=== PATIENT | male | born 1970 | race Caucasian/White ===

== ENCOUNTER 2018-02-26 23:52 | Emergency (ER) | payer MEDICARE ==
[2018-02-27 00:44] LABS: HEMATOCRIT 51.6 % (42.0-52.0); MEAN CORPUSCULAR HEMOGLOBIN 30.2 pg (27.0-33.0); MEAN CORPUSCULAR HGB CONC 34.9 g/dl (32.0-36.5); MEAN CORPUSCULAR VOLUME 86.6 fl (80.0-96.0); PLATELET COUNT, AUTOMATED 280 10^3/uL (150-450); RED BLOOD COUNT 5.96 10^6/uL (4.30-6.10); RED CELL DISTRIBUTION WIDTH 13.2 % (11.5-14.5); WHITE BLOOD COUNT 13.7 10^3/uL (4.0-10.0)
[2018-02-27 01:04] LABS: AMPHETAMINES LEVEL URINE NEGATIVE (NEGATIVE); BARBITURATES URINE NEGATIVE (NEGATIVE); BENZODIAZEPINES URINE NEGATIVE (NEGATIVE); CANNABINOIDS URINE NEGATIVE (NEGATIVE); COCAINE METABOLITE URINE NEGATIVE (NEGATIVE); METHADONE URINE NEGATIVE (NEGATIVE); OPIATES URINE NEGATIVE (NEGATIVE); PHENCYCLIDINE URINE NEGATIVE (NEGATIVE)
[2018-02-27 01:10] LABS: BLOOD UREA NITROGEN 11 MG/DL (7-18); CREATININE FOR GFR 0.88 MG/DL (0.70-1.30); GLOMERULAR FILTRATION RATE > 60.0 (>60); GLUCOSE, FASTING 96 MG/DL (70-100); POTASSIUM SERUM 4.4 MEQ/L (3.5-5.1); SODIUM LEVEL 137 MEQ/L (136-145)
[2018-02-27 01:11] LABS: ACETAMINOPHEN LEVEL < 2.0 UG/ML (10.0-30.0); ALBUMIN 4.4 GM/DL (3.2-5.2); ALBUMIN/GLOBULIN RATIO 1.38 (1.00-1.93); ALKALINE PHOSPHATASE 64 U/L (45-117); ALT/SGPT 106 U/L (12-78); ANION GAP 11 MEQ/L (8-16); AST/SGOT 79 U/L (7-37); BILIRUBIN,DIRECT 0.2 MG/DL (0.0-0.2); BILIRUBIN,TOTAL 0.6 MG/DL (0.2-1.0); CALCIUM LEVEL 9.1 MG/DL (8.5-10.1); CARBON DIOXIDE LEVEL 22 MEQ/L (21-32); CHLORIDE LEVEL 104 MEQ/L (98-107); ETHYL ALCOHOL (ETHANOL) 0.003 % (0.000-0.010); SALICYLATE LEVEL < 1.7 MG/DL (5.0-30.0); THYROID STIMULATING HORMONE 0.906 uIU/ML (0.358-3.740); TOTAL PROTEIN 7.6 GM/DL (6.4-8.2)
[2018-02-27 04:40] LABS: BASO % 0.2 % (0.0-1.0); EOS % 0.1 % (0.0-3.0); IMMATURE GRANULOCYTE % 0.3 % (0-3.0); LYMPH % 22.2 % (24.0-44.0); MONO % 7.6 % (0.0-5.0); NEUTROPHILS # 9.5 10^3/uL (1.8-7.7); NEUTROPHILS % 69.6 % (36.0-66.0)
[2018-02-27] MEDS: ALPRAZolam 0.5 MG TAB PO ×2 (06:37→07:16)
[2018-02-27] MEDS: HALOPERIDOL 5 MG TAB PO (07:08)
== END 2018-02-27 08:26 ==
LOC: M ED 23:52
DX: F23 Brief psychotic disorder (principal); I45.10 Unspecified right bundle-branch block; I44.4 Left anterior fascicular block; Z72.0 Tobacco use; F12.10 Cannabis abuse, uncomplicated; Z79.899 Other long term (current) drug therapy
CPT/HCPCS: 93005

== ENCOUNTER 2018-04-13 15:20 | Inpatient (IN) | payer MEDICARE ==
[2018-04-13 15:59] LABS: HEMOGLOBIN 16.7 g/dl (13.5-17.5); MEAN CORPUSCULAR HEMOGLOBIN 29.8 pg (27.0-33.0); MEAN CORPUSCULAR HGB CONC 34.8 g/dl (32.0-36.5); MEAN CORPUSCULAR VOLUME 85.7 fl (80.0-96.0); PLATELET COUNT, AUTOMATED 238 10^3/uL (150-450); RED CELL DISTRIBUTION WIDTH 12.2 % (11.5-14.5); WHITE BLOOD COUNT 8.9 10^3/uL (4.0-10.0)
[2018-04-13 16:21] LABS: AMPHETAMINES LEVEL URINE NEGATIVE (NEGATIVE); BARBITURATES URINE NEGATIVE (NEGATIVE); BENZODIAZEPINES URINE NEGATIVE (NEGATIVE); CANNABINOIDS URINE NEGATIVE (NEGATIVE); COCAINE METABOLITE URINE NEGATIVE (NEGATIVE); METHADONE URINE NEGATIVE (NEGATIVE); OPIATES URINE NEGATIVE (NEGATIVE); PHENCYCLIDINE URINE NEGATIVE (NEGATIVE)
[2018-04-13 16:30] LABS: ALBUMIN 4.3 GM/DL (3.2-5.2); ALBUMIN/GLOBULIN RATIO 1.54 (1.00-1.93); ALKALINE PHOSPHATASE 75 U/L (45-117); ALT/SGPT 29 U/L (12-78); ANION GAP 5 MEQ/L (8-16); AST/SGOT 16 U/L (7-37); BILIRUBIN,DIRECT 0.2 MG/DL (0.0-0.2); BILIRUBIN,TOTAL 0.6 MG/DL (0.2-1.0); BLOOD UREA NITROGEN 8 MG/DL (7-18); CALCIUM LEVEL 9.2 MG/DL (8.5-10.1); CARBON DIOXIDE LEVEL 29 MEQ/L (21-32); CHLORIDE LEVEL 99 MEQ/L (98-107); CREATININE FOR GFR 0.94 MG/DL (0.70-1.30); ETHYL ALCOHOL (ETHANOL) 0.003 % (0.000-0.010); GLOMERULAR FILTRATION RATE > 60.0 (>60); GLUCOSE, FASTING 110 MG/DL (70-100); POTASSIUM SERUM 4.1 MEQ/L (3.5-5.1); SALICYLATE LEVEL < 1.7 MG/DL (5.0-30.0); SODIUM LEVEL 133 MEQ/L (136-145); TOTAL PROTEIN 7.1 GM/DL (6.4-8.2)
[2018-04-13 16:32] LABS: ACETAMINOPHEN LEVEL < 2.0 UG/ML (10.0-30.0)
[2018-04-13] MEDS: LORazepam 0.5 MG TAB PO (22:30)
[2018-04-14] MEDS: MULTIVITAMINS/MINERALS THERAP 1 TAB PO (09:00)
[2018-04-14] MEDS: risperiDONE 1 MG TAB PO ×2 (09:00→20:05)
[2018-04-14] MEDS: VITAMIN D 1,000 INTERNATIONAL UNITS TABLET PO (09:00)
[2018-04-14] MEDS: LISINOPRIL 40 MG TAB PO (09:00)
[2018-04-14] MEDS ORDERED: MAALOX 30 ML SUSP *UDC PO (13:45)
[2018-04-14] MEDS ORDERED: MOM 30ML SUSPENSION UDC PO (13:45)
[2018-04-14] MEDS: NICOTINE POLACRILEX 2 MG GUM PO ×2 (16:30→20:06)
[2018-04-15] MEDS: traZODone 50 MG TAB PO (00:32)
[2018-04-15] MEDS: NICOTINE POLACRILEX 2 MG GUM PO ×8 (00:33→20:12)
[2018-04-15] MEDS: LISINOPRIL 40 MG TAB PO (08:19)
[2018-04-15] MEDS: MULTIVITAMINS/MINERALS THERAP 1 TAB PO (08:19)
[2018-04-15] MEDS: VITAMIN D 1,000 INTERNATIONAL UNITS TABLET PO (08:19)
[2018-04-15] MEDS: risperiDONE 1 MG TAB PO ×3 (08:19→20:12)
[2018-04-15 08:57] LABS: ANION GAP 8 MEQ/L (8-16); BLOOD UREA NITROGEN 13 MG/DL (7-18); CALCIUM LEVEL 9.2 MG/DL (8.5-10.1); CARBON DIOXIDE LEVEL 25 MEQ/L (21-32); CHLORIDE LEVEL 103 MEQ/L (98-107); CREATININE FOR GFR 0.94 MG/DL (0.70-1.30); GLOMERULAR FILTRATION RATE > 60.0 (>60); GLUCOSE, FASTING 109 MG/DL (70-100); POTASSIUM SERUM 4.4 MEQ/L (3.5-5.1); SODIUM LEVEL 136 MEQ/L (136-145)
[2018-04-15] MEDS: OLANZapine ORAL DISINTEGRATING TAB 5MG PO ×2 (10:26→16:36)
[2018-04-15] MEDS: GABAPENTIN 300 MG CAP PO ×2 (15:02→20:12)
[2018-04-16] MEDS: NICOTINE POLACRILEX 2 MG GUM PO ×6 (04:11→22:06)
[2018-04-16] MEDS: GABAPENTIN 300 MG CAP PO ×3 (08:03→22:05)
[2018-04-16] MEDS: MULTIVITAMINS/MINERALS THERAP 1 TAB PO (08:03)
[2018-04-16] MEDS: LISINOPRIL 40 MG TAB PO (08:03)
[2018-04-16] MEDS: risperiDONE 1 MG TAB PO (08:04)
[2018-04-16] MEDS: VITAMIN D 1,000 INTERNATIONAL UNITS TABLET PO (08:04)
[2018-04-16] MEDS: OLANZapine ORAL DISINTEGRATING TAB 5MG PO ×2 (09:18→12:39)
[2018-04-16] MEDS: risperiDONE 2 MG TAB PO (15:08)
[2018-04-16] MEDS: risperiDONE 3 MG TAB PO (22:05)
[2018-04-17] MEDS: NICOTINE POLACRILEX 2 MG GUM PO ×8 (00:07→20:06)
[2018-04-17] MEDS: traZODone 50 MG TAB PO (00:23)
[2018-04-17] MEDS: QUEtiapine FUMARATE 50 MG TAB PO ×3 (00:23→13:11)
[2018-04-17] MEDS: ACETAMINOPHEN TAB 650MG DOSE (2X325MG) PO ×2 (04:10→12:18)
[2018-04-17] MEDS: VITAMIN D 1,000 INTERNATIONAL UNITS TABLET PO (08:24)
[2018-04-17] MEDS: LISINOPRIL 40 MG TAB PO (08:24)
[2018-04-17] MEDS: MULTIVITAMINS/MINERALS THERAP 1 TAB PO (08:24)
[2018-04-17] MEDS: risperiDONE 3 MG TAB PO ×2 (08:24→20:05)
[2018-04-17] MEDS: GABAPENTIN 300 MG CAP PO ×3 (08:24→20:05)
[2018-04-17] MEDS: risperiDONE 2 MG TAB PO (14:24)
[2018-04-18] MEDS: NICOTINE POLACRILEX 2 MG GUM PO ×6 (02:45→20:05)
[2018-04-18] MEDS: ACETAMINOPHEN TAB 650MG DOSE (2X325MG) PO ×2 (02:45→16:52)
[2018-04-18] MEDS: QUEtiapine FUMARATE 50 MG TAB PO ×2 (03:23→11:17)
[2018-04-18] MEDS: risperiDONE 3 MG TAB PO ×2 (08:01→20:04)
[2018-04-18] MEDS: MULTIVITAMINS/MINERALS THERAP 1 TAB PO (08:01)
[2018-04-18] MEDS: GABAPENTIN 300 MG CAP PO ×3 (08:01→20:04)
[2018-04-18] MEDS: LISINOPRIL 40 MG TAB PO (08:01)
[2018-04-18] MEDS: VITAMIN D 1,000 INTERNATIONAL UNITS TABLET PO (08:01)
[2018-04-18] MEDS: risperiDONE 2 MG TAB PO (14:23)
[2018-04-19] MEDS: NICOTINE POLACRILEX 2 MG GUM PO ×5 (02:25→17:00)
[2018-04-19] MEDS: ACETAMINOPHEN TAB 650MG DOSE (2X325MG) PO ×2 (04:36→11:56)
[2018-04-19] MEDS: LISINOPRIL 40 MG TAB PO (08:07)
[2018-04-19] MEDS: risperiDONE 3 MG TAB PO ×2 (08:07→20:52)
[2018-04-19] MEDS: VITAMIN D 1,000 INTERNATIONAL UNITS TABLET PO (08:07)
[2018-04-19] MEDS: MULTIVITAMINS/MINERALS THERAP 1 TAB PO (08:07)
[2018-04-19] MEDS: GABAPENTIN 300 MG CAP PO ×3 (08:07→20:52)
[2018-04-19] MEDS: QUEtiapine FUMARATE 50 MG TAB PO (10:04)
[2018-04-19] MEDS: risperiDONE 2 MG TAB PO (15:24)
[2018-04-20] MEDS: NICOTINE POLACRILEX 2 MG GUM PO ×8 (02:04→18:49)
[2018-04-20] MEDS: ACETAMINOPHEN TAB 650MG DOSE (2X325MG) PO ×2 (02:05→08:27)
[2018-04-20 07:18] LABS: ALBUMIN 4.2 GM/DL (3.2-5.2); ALBUMIN/GLOBULIN RATIO 1.56 (1.00-1.93); ALKALINE PHOSPHATASE 77 U/L (45-117); ALT/SGPT 30 U/L (12-78); AST/SGOT 15 U/L (7-37); BILIRUBIN,DIRECT 0.1 MG/DL (0.0-0.2); BILIRUBIN,TOTAL 0.5 MG/DL (0.2-1.0); CHOLESTEROL LEVEL 146 MG/DL (<200); CHOLESTEROL RISK RATIO 3.318 (<5); HDL CHOLESTEROL 44 MG/DL (>40); LDL CHOLESTEROL 79 MG/DL (<100); NON-HDL-C 102 MG/DL; TOTAL PROTEIN 6.9 GM/DL (6.4-8.2); TRIGLYCERIDES LEVEL 115 MG/DL (<150)
[2018-04-20] MEDS: MULTIVITAMINS/MINERALS THERAP 1 TAB PO (08:04)
[2018-04-20] MEDS: VITAMIN D 1,000 INTERNATIONAL UNITS TABLET PO (08:04)
[2018-04-20] MEDS: GABAPENTIN 300 MG CAP PO ×3 (08:04→20:28)
[2018-04-20] MEDS: LISINOPRIL 40 MG TAB PO (08:04)
[2018-04-20] MEDS: risperiDONE 2 MG TAB PO (14:01)
[2018-04-20] MEDS: risperiDONE 3 MG TAB PO (20:28)
[2018-04-20] MEDS: traZODone 50 MG TAB PO (20:28)
[2018-04-21] MEDS: NICOTINE POLACRILEX 2 MG GUM PO ×6 (04:08→16:56)
[2018-04-21] MEDS: VITAMIN D 1,000 INTERNATIONAL UNITS TABLET PO (08:20)
[2018-04-21] MEDS: MULTIVITAMINS/MINERALS THERAP 1 TAB PO (08:20)
[2018-04-21] MEDS: GABAPENTIN 300 MG CAP PO ×3 (08:20→22:30)
[2018-04-21] MEDS: LISINOPRIL 40 MG TAB PO (08:20)
[2018-04-21] MEDS: ACETAMINOPHEN TAB 650MG DOSE (2X325MG) PO (10:26)
[2018-04-21] MEDS: risperiDONE 2 MG TAB PO (14:44)
[2018-04-21] MEDS: risperiDONE 3 MG TAB PO (22:29)
[2018-04-21] MEDS: QUEtiapine FUMARATE 50 MG TAB PO (22:31)
[2018-04-22] MEDS: ACETAMINOPHEN TAB 650MG DOSE (2X325MG) PO (05:17)
[2018-04-22] MEDS: NICOTINE POLACRILEX 2 MG GUM PO ×6 (05:18→19:37)
[2018-04-22] MEDS: GABAPENTIN 300 MG CAP PO ×3 (08:19→20:46)
[2018-04-22] MEDS: MULTIVITAMINS/MINERALS THERAP 1 TAB PO (08:19)
[2018-04-22] MEDS: VITAMIN D 1,000 INTERNATIONAL UNITS TABLET PO (08:19)
[2018-04-22] MEDS: LISINOPRIL 40 MG TAB PO (08:20)
[2018-04-22] MEDS: IBUPROFEN 600 MG TAB PO (10:45)
[2018-04-22] MEDS: QUEtiapine FUMARATE 50 MG TAB PO (13:30)
[2018-04-22] MEDS: risperiDONE 2 MG TAB PO (15:36)
[2018-04-22] MEDS: CYCLOBENZAPRINE 5MG TABLET PO (18:16)
[2018-04-22] MEDS: risperiDONE 3 MG TAB PO (20:46)
[2018-04-23] MEDS: NICOTINE POLACRILEX 2 MG GUM PO ×7 (05:28→21:25)
[2018-04-23] MEDS: IBUPROFEN 600 MG TAB PO ×2 (05:31→11:45)
[2018-04-23] MEDS: SODIUM CHLORIDE NASAL 0.65% SPRAY BTL (OCEAN) (08:44)
[2018-04-23] MEDS: MULTIVITAMINS/MINERALS THERAP 1 TAB PO (08:45)
[2018-04-23] MEDS: LISINOPRIL 40 MG TAB PO (08:45)
[2018-04-23] MEDS: VITAMIN D 1,000 INTERNATIONAL UNITS TABLET PO (08:45)
[2018-04-23] MEDS: GABAPENTIN 300 MG CAP PO ×3 (08:45→20:00)
[2018-04-23] MEDS: CYCLOBENZAPRINE 5MG TABLET PO ×3 (08:45→21:25)
[2018-04-23] MEDS: OLANZapine ORAL DISINTEGRATING TAB 5MG PO (11:45)
[2018-04-23] MEDS: risperiDONE 2 MG TAB PO (14:06)
[2018-04-23] MEDS: risperiDONE 3 MG TAB PO (20:00)
[2018-04-24] MEDS: NICOTINE POLACRILEX 2 MG GUM PO ×8 (04:12→21:07)
[2018-04-24] MEDS: SODIUM CHLORIDE NASAL 0.65% SPRAY BTL (OCEAN) ×2 (06:30→11:38)
[2018-04-24] MEDS: MULTIVITAMINS/MINERALS THERAP 1 TAB PO (08:18)
[2018-04-24] MEDS: GABAPENTIN 300 MG CAP PO ×3 (08:18→20:10)
[2018-04-24] MEDS: LISINOPRIL 40 MG TAB PO (08:18)
[2018-04-24] MEDS: VITAMIN D 1,000 INTERNATIONAL UNITS TABLET PO (08:18)
[2018-04-24] MEDS: risperiDONE 2 MG TAB PO (14:03)
[2018-04-24] MEDS: CYCLOBENZAPRINE 5MG TABLET PO (20:09)
[2018-04-24] MEDS: risperiDONE 3 MG TAB PO (20:10)
[2018-04-24] MEDS: traZODone 50 MG TAB PO (21:07)
[2018-04-25] MEDS: NICOTINE POLACRILEX 2 MG GUM PO ×5 (05:07→18:12)
[2018-04-25] MEDS: CYCLOBENZAPRINE 5MG TABLET PO ×3 (05:07→20:32)
[2018-04-25] MEDS: LISINOPRIL 40 MG TAB PO (09:24)
[2018-04-25] MEDS: GABAPENTIN 300 MG CAP PO ×3 (09:25→20:33)
[2018-04-25] MEDS: MULTIVITAMINS/MINERALS THERAP 1 TAB PO (09:25)
[2018-04-25] MEDS: VITAMIN D 1,000 INTERNATIONAL UNITS TABLET PO (09:25)
[2018-04-25] MEDS: risperiDONE 2 MG TAB PO (15:29)
[2018-04-25] MEDS: IBUPROFEN 600 MG TAB PO (18:12)
[2018-04-25] MEDS: traZODone 50 MG TAB PO (20:32)
[2018-04-25] MEDS: risperiDONE 3 MG TAB PO (20:32)
[2018-04-26] MEDS: NICOTINE POLACRILEX 2 MG GUM PO ×2 (04:08→08:43)
[2018-04-26] MEDS: SODIUM CHLORIDE NASAL 0.65% SPRAY BTL (OCEAN) (04:08)
[2018-04-26] MEDS: CYCLOBENZAPRINE 5MG TABLET PO (05:14)
[2018-04-26] MEDS: GABAPENTIN 300 MG CAP PO (08:43)
[2018-04-26] MEDS: VITAMIN D 1,000 INTERNATIONAL UNITS TABLET PO (08:43)
[2018-04-26] MEDS: MULTIVITAMINS/MINERALS THERAP 1 TAB PO (08:43)
[2018-04-26] MEDS: LISINOPRIL 40 MG TAB PO (08:44)
[2018-04-26] MEDS ORDERED: diphenhydrAMINE 25 MG CAP PO (10:15)
== END 2018-04-26 11:00 | disposition home or self-care (01) | DRG 885 ==
LOC: M ED INP 04-14 13:42 → M ED 15:20 → M PSY 04-14 14:35
DX: F25.0 Schizoaffective disorder, bipolar type (principal); E87.1 Hypo-osmolality and hyponatremia; I10 Essential (primary) hypertension; I45.6 Pre-excitation syndrome; Z79.899 Other long term (current) drug therapy; Z88.8 Allergy status to other drugs, medicaments and biological substances

== ENCOUNTER 2020-06-28 11:06 | Emergency (ER) | payer MEDICARE ==
[~2020-06-28] VITALS: Ht 177.8 cm; Wt 116.4 kg
[~2020-06-28 11:06] MED LIST: BENZ0.5T PO; BENZ5TA PO; CELE20TA PO; CLON0.5T PO; CLON1TAB PO; CYCL5TAB PO; DEPA1TAB3 PO; DEPA500T2 PO; DIVA500T9 PO; GABA-282 PO; HALO1TAB21 PO; HALO1TAB29 PO; LISI40TA PO; MENSTAB10 PO; METO50TA2 PO; OCEA0.654; OMEPPOW18 PO; RISP-8 PO; RISP0.2516 PO; RISP2TAB32 PO; RISP3TAB20 PO; SERT-138 PO; SIMV20TA2 PO; TEST1VL IM; TRAZ100T2 PO; TRAZ1TAB10 PO; VITA500046 PO; VITMTA PO; ZALE10CA PO; [UNRECOGNIZED DRUG - CODE] PO; [UNRECOGNIZED DRUG - OTHER] PO
--- OUTSIDE RECORDS SUMMARY | 2020-06-28 11:15 | CCD | Continuity of Care Document ---
Author Author Júnior CORNELIUS [facility] Organization Unknown Address [facility] [address] [place] [address] Phone [phone] Care Team Providers Care Business Division Chair Name Role Phone [facility] AUTM [phone] Problems Active Problems Provider Date Essential hypertension Kalyan Richardson MD Onset: 02/06/2020 Schizoaffective disorder, depressive type CHAPITO Moscoso Onset: 04/18/2020 Ventral hernia without obstruction or gangrene Kalyan Richardson MD Onset: 02/06/2020 Social History Type Date Description Comments Sex Unknown Tobacco Use Start: Unknown Never Smoked Cigarettes Tobacco Use Start: Unknown Never Smoked Cigars Tobacco Use Start: Unknown Never Smoked A Pipe Tobacco Use Start: Unknown Current Smokeless Tobacco User, Uses Occasionally ETOH Use Denies alcohol use Tobacco Use Start: Unknown Patient has never smoked Recreational Drug Use Denies Drug Use Allergies, Adverse Reactions, Alerts Active Allergies Reaction Severity Comments Date Dust Mites 05/06/2020 Ragweed 05/06/2020 NKFA 05/06/2020 Haldol Locked My Jaw 05/06/2020 Inactive Allergies NKDA 02/06/2020 Medications Active Medications SIG Qnty Indications Ordering Provide r Date Depakote 500mg Tablets DR 1 tab by mouth three times a day 90tabs Unknown Lisinopril 40mg Tablets 1 by mouth every day Unknown Meloxicam 7.5mg Tablets 1 by mouth bid Unknown Prazosin HCL 1mg Capsules 1 cap by mouth twice a day 180caps Unknown Clonazepam 0.5mg Tablets Dispers 1 tab by mouth twice a day 60tabs Unknown Sertraline HCL 100mg Tablets 1 by mouth every day 90tabs Unknown Olanzapine 10mg Tablets 1 tab by mouth every day 90tabs Unknown Immunizations Description No Information Available Vital Signs Date Vital Result Comment 05/06/2020 10:41am BP Systolic Sitting 140 mmHg BP Diastolic Sitting 86 mmHg Heart Rate 62 /min Body Temperature 99.3 F Oral Respiratory Rate 18 /min O2 % BldC Oximetry 98 % Weight 252.25 lb Weight 114.421 kg Height 70 inches 5'10" BMI (Body Mass Index) 36.2 kg/m2 BSA (Body Surface Area) 2.30 m2 02/06/2020 11:35am BP Systolic 141 mmHg BP Diastolic 92 mmHg Heart Rate 70 /min Body Temperature 97.3 F Respiratory Rate 17 /min Weight 250.00 lb Weight 113.400 kg Height 71 inches BMI (Body Mass Index) 34.9 kg/m2 BSA (Body Surface Area) 2.32 m2 Results Test Acquired Date Facility Test Result H/L Range Note [facility] 13 05/06/2020 Radha brown Summary Report (Summary) FINAL 1, 2 PDF . 1 {DIAGNOSIS: F25.1~{MEDICATI ONS/DECLARED: CLONAZEPAM DEPAKOTE MELOXICAM PRAZOSIN~{PRESCRIPTION I 2 [facility] SELECT 13 (MW) Test Result Flag Units Drug Present and Declared for Prescription Verification 7-aminoclonazepam 36 EXPECTED ng/mg creat 7-aminoclonazepam is an expected metabol ite of clonazepam. Source of clonazepam is a scheduled prescription medication. Test Result Flag Units Ref Range Creatinine 80 mg/dL >=20 Declared Medications: The flagging and interpretation on this report are based on the following declared medications. Unexpected results may arise from inaccuracies in the declared medications. Note: The testing scope of this panel includes these medications: Clonazepam Note: The testing scope of this panel does not include following reported medications: Divalproex (Depakote) Meloxicam Prazosin Sertraline For clinical consultation, please call . Procedures Date Code Description Status 04/18/2020 64409 Psychiatric Diagnostic Evaluatio n Completed Medical Devices Description No Information Available Encounters Description No Information Available Assessments Date Code Description Provider 05/28/2020 F25.1 Schizoaffective disorder, depres sive type Kaylie Ashli, [facility] 05/20/2020 F25.1 Schizoaffective disorder, depres sive type Kaylie Ashli, [facility] 05/08/2020 F25.1 Schizoaffective disorder, depres sive type Kaylie Ashli, [facility] 05/06/2020 F25.1 Schizoaffective disorder, depres sive type Eliane Chavira RN 05/03/2020 F25.1 Schizoaffective disorder, depres sive type Kaylie Ashli, [facility] 04/18/2020 F25.1 Schizoaffective disorder, depres sive type Papa Doshi, [facility] 02/06/2020 K43.9 Ventral hernia without obstructi on or gangrene Kalyan Richardson MD Plan of Treatment Future Appointment(s):* 06/27/2020 10:00 am - Kaylie Cornelius, [facility] at [facility] * 06/13/2020 8:00 am - Kaylie Cornelius [facility] at [facility] * 06/14/2020 11:20 am - Fer Rosario PA-C at [facility] 02/06/2020 - Kalyan Richardson MD* K43.9 Ventral hernia without obstruction or gangrene* New Labs:* Covid-19, Ordered: 02/06/20 * CBC W/Automated Diff, Ordered: 02/06/20 * Electrolyte Panel, Ordered: 02/06/20 * Comments:* Considering the patient's amount of pain, his nausea and inability to eat and drink, I will recommend HERRERA operative evaluation and repair. I suspect that his pain is from swelling 2nd to the prior manipulation and not from bowel involvement. However, this will be better evaluated during the operative procedure. Risks and benefits of the operative procedure including infection, bleeding and possible need to open the abdomen were discussed with the patient to his stated understanding. Functional Status Description No Information Available Mental Status Description No Information Available Referrals Description No Information Available
--- OUTSIDE RECORDS SUMMARY | 2020-06-28 11:15 | CCD | Continuity of Care Document ---
Author Author [facility] Address [address] [place] [address] Phone Support Name Relationship Address Phone Kelli Mcmanus [employer]S [address] [place] [address] Ina Geronimo [employer]S Unknown Unavailable Naveed Hannon [employer]S [address] [place] [address] Skip Rutherford [employer]S [address] [place] [address] Hospital Lab, [facility] [address] [place] [address] Allergies, Adverse Reactions, Alerts Allergen Type Severity Reaction Last Updated Verified Status dust mites Allergy Severe builds up drainage in eyes , post nasal drip February 05, 2020 8:23pm No Active rag weed Allergy Severe builds up eye drainage, post nasal drip February 05, 2020 8:23pm No Active Medications Medication Status Dose Units Route Directions Qty Days Start Date End Date Instructions Divalproex Discontinued PO 60 December 06, 2018 8:01am November 13, 2019 2:46pm Citalopram Discontinued PO December 06, 2018 8:03am January 11, 2019 7:38am Meloxicam Discontinued 7 .5 MG PO 2 Times Per Day 180 90 December 06, 2018 8:10am November 29, 2019 7:17am Testosterone Cypionate Discontinued 300 MG IM every 2 weeks 1.5 14 December 06, 2018 8: 13am January 05, 2019 1:42pm Inject 1.5ml into muscle Q2 weeks. Syringe (Disposable) (Bd Luer-Yanira Tip Co ntrol Syring) 10 mL syringe Discontinued 1 EACH MC every 2 weeks 1 December 06, 2018 8:14am January 05 1:42pm With 1 inch 23g needle. Divalproex Discontinued 250 MG PO 2 Times Per Day 60 November 13, 2019 2:46pm January 25, 2020 8:51am On Hold: None Citalopram Discontinued 30 MG PO daily 60 January 11, 2019 7:36am November 13, 2019 2:46pm Montelukast Discontinued 10 MG PO Every Evening 90 January 11, 2019 7:44am July 12, 2019 9:55am Alprazolam Discontinued 0.5 MG PO 2 Times Per Day 60 February 16, 2019 7:46am February 16, 2019 9:08am take 1 t ablet by mouth two times a day MDD-2 Syringe (Disposable) (Bd Luer-Yanira Tip Co ntrol Syring) 10 mL syringe Discontinued 1 EACH MC every 2 weeks 1 February 16, 2019 7:59am April 28, 2019 7:30am With 1 inch 23g needle. Testosterone Cypionate Discontinued 300 MG IM every 2 weeks 1.5 February 16, 2 019 7:59am March 16, 2019 2:21pm Inject 1.5 ml into muscle Q2 weeks. FOREST EXAMINER: [id number] Ofloxacin Discontinued 1 DROPS BOTH EYES Four Times a Day 10 February 16 9 8:01am February 20, 2019 11:01pm Alprazolam Discontinued 0.5 MG PO daily February 16, 2019 9:08am November 29, 2019 7:35am take 1 tablet once a day. Montelukast Discontinued 10 MG PO Every Evening 90 July 12, 2019 10:14am February 05, 2020 8:17pm Loratadine (Allergy Relief (Loratadine)) 10 mg tablet Discontinued 10 MG PO Q24H 90 July 12, 2019 10:15am July 12, 2019 10:16am Loratadine (Allergy Relief (Loratadine)) 10 mg tablet Discontinued 10 MG PO Q24H 90 July 12, 2019 10:16am February 05, 2020 8:17pm Trazodone Discontinued 50 MG PO daily October 19, 2019 9:02am February 05, 2020 8:17pm Syringe (Disposable) (Bd Luer-Yanira Tip Co ntrol Syring) 10 mL syringe Discontinued 1 EACH MC every 2 weeks 1 October 19, 2019 10:10am November 28 0 7:35am With 1 inch 23g needle. Citalopram Discontinued 40 MG PO daily November 13, 2019 2:45pm November 13, 2019 2:48pm Citalopram Discontinued 40 MG PO daily November 13, 2019 2:47pm January 22, 2020 7:50am Fluticasone Propionate (Flonase Allergy Relief) 50 mcg/actuation spray,suspension Discontinued 2 SPRAY DONOVAN daily December 20, 2019 9:26am February 05, 2020 8:22pm administer into each nostril Afluria Qd (3yr up)(PF) (flu vac [id number] 36mos up(PF)) Discontinued 60 MCG IM 1 Time/Once 0.5 March 13, 2020 8:54am March 132019 9:51am Sertraline Discontinued MG PO March 13, 2020 9:05am March 13, 2020 10:29am Olanzapine Discontinued MG PO March 13, 2020 9:06am March 13, 2020 10:29am Prazosin Discontinued MG PO March 13, 2020 9:06am March 132019 10:29am Divalproex Discontinued 500 MG PO 2 Times Per Day March 13, 2020 9:06am March 13, 2020 10:29am Taken over from . Takes 500mg in am and 1000mg at hs Divalproex Active 500 MG PO Three times a day 270 90 March 13, 2020 9:49am Taken over from . Takes 500mg in am and 1000mg at hs Olanzapine Discontinued 20 MG PO Every Evening 60 March 13, 2020 9:49am May 07, 2020 11:17am Prazosin Discontinued 1 MG PO daily March 13, 2020 9:50am March 18, 2020 2:25pm Sertraline Discontinued 50 MG PO Q24H March 13, 2020 9:50am April 04, 2020 10:24am Sertraline Discontinued 100 MG PO Q24H April 04, 2020 10:24am May 07, 2020 11:21am Testosterone Cypionate Discontinued 200 MG IM every 2 weeks 06 13April 04, 2020 10:27am April 11, 2020 9:46am Inject 1m l into muscle Q2 week FOREST EXAMINER:[id number] Olanzapine Discontinued 10 MG PO Every Evening May 07, 2020 11:17am June 04, 2020 1:21pm Sertraline Active 50 MG PO Q24H May 07, 2020 11:19am Take with 100mg tablet. Sertraline Active 100 MG PO Q24H May 07, 2020 11:19am Take with 50mg tablet. Testosterone Cypionate Discontinued 200 MG IM every 2 weeks 1 May 07, 2020 1:04pm June 04, 2020 2:26pm Inject 1ml into muscle Q2 week FOREST EXAMINER:[id number] Olanzapine Active 20 MG PO Every Evening 60 June 04, 2020 1:20pm Clonazepam Active 0.5 MG PO 2 Times Per Day June 04, 2020 2:26pm Testosterone Cypionate Active 200 MG IM every 2 weeks 1 June 04, 2020 2 :26pm Inject 1ml into muscle Q2 we ek FOREST EXAMINER:[id number] Amoxicillin-Pot Clavulanate Active 1 TAB PO 2 Times Per Day 19 03June 21, 2020 9:36am Diltiazem Hcl Discontinued 240 MG PO Once Per Day January 01, 2014 9:47am July 08, 2018 8:39am Gabapentin Discontinued 400 MG PO Four Times a Day January 01, 2014 9:47am November 13, 2019 2:46pm Bupropion Hcl (Smoking Deter) Discontinued 150 MG PO 2 Times Per Day January 01, 2014 9:4 7am July 08, 2018 8:39am Testosterone Cypionate (Depo-Testosterone) 200 mg/mL o il Discontinued 200 MG IM every 2 weeks 1 March 14, 2012 3:36pm July 12:13pm Haloperidol Discontinued 5 MG PO Three times a day 90 March 14, 2012 3:37pm December 20, 2012 8:55am Divalproex Sodium (Depakote) Discontinued 500 MG PO 2 Times Per Day 60 March 14, 2012 3:37pm January 01, 2014 9:55am Benztropine Discontinued 1 MG PO 2 Times Per Day 60 March 14, 2012 3:38pm December 20, 2012 8:55am Sertraline Discontinued 100 MG PO Once Per Day 30 March 14, 2012 3:39pm December 20, 2012 8:55am METOPROLOL TARTRATE (LOPRESSOR (Metoprolol Tartrate)) Discontinued 25 MG PO 2 Times Per Day 60 March 14, 2012 3:57pm March 282011 10:04am Metoprolol Tartrate Discontinued 50 MG PO 2 Times Per Day 60 March 28, 2012 10:04am June 24, 2012 2:12pm Simvastatin Discontinued 20 MG PO Once Per Day 30 March 28, 2012 10:05am June 24, 2012 2:12pm Simvastatin Discontinued 20 MG PO Once Per Day 30 June 24, 2012 2:12pm September 26, 2012 9:15am Metoprolol Tartrate Discontinued 50 MG PO 2 Times Per Day 60 June 24, 2012 2:12pm September 26, 2012 10:31am Sildenafil (Viagra) 50 mg tablet Dis continued 50 MG PO D AILY PRN 6 June 24, 2012 2 :13pm December 20, 2012 9:04am Testosterone Cypionate (Depo-Testosterone) 200 mg/mL o il Discontinued 200 MG IM every 2 weeks 1 August 12, 2012 12:13pm December 12, 2012 10:08am Simvastatin Discontinued 20 MG PO Once Per Day 30 September 26, 2012 9:15am December 20, 2012 8:58am Metoprolol Tartrate Discontinued 50 MG PO 2 Times Per Day 60 September 26, 2012 10 :31am January 06, 2013 9:55am Testosterone Cypionate (Depo-Testosterone) 200 mg/mL o il Discontinued 200 MG IM every 2 weeks December 12, 2012 10:08am July 8:39am Clonazepam Discontinued 0.5 MG PO 2 Times Per Day 60 December 20, 2012 8:56am January 01, 2014 9:55am Zolpidem (Ambien) 10 mg tablet Discontinue d 10 MG PO Once Per Day 30 December 20, 2012 8:5 6am January 01, 2014 9:54am Perphenazine Discontinued 8 MG PO Every night at bed time December 20, 2012 8:5 6am July 08, 2018 8:39am Simvastatin Discontinued 20 MG PO Once Per Day 30 December 20, 2012 8:58am January 01, 2014 9:53am Sildenafil (Viagra) 100 mg tablet Di scontinued 100 MG PO DAILY PRN 6 December 20, 2012 9:04 am February 05, 2020 8:17pm Metoprolol Tartrate Discontinued 50 MG PO 2 Times Per Day 60 January 06, 2013 9: 55am January 01, 2014 9:54am Diclofenac Potassium Discontinued 50 MG PO BID PRN 30 January 06, 2013 11:51am January 01, 2014 9:55am Ziprasidone Hcl Discontinued July 08, 2018 8:39am December 06, 2018 8:04am Lisinopril Discontinued July 08, 2018 8:39am July 082018 8:51am Trazodone Hcl Discontinued July 08, 2018 8:40am July 12, 2019 9:56am Meloxicam Discontinued 7 .5 MG PO 2 Times Per Day 60 30 July 08, 2018 8:51am September 28, 2018 9:30am Meloxicam Discontinued 7 .5 MG PO 2 Times Per Day 60 July 08, 2018 8:51am December 06, 2018 8:11am Lisinopril Discontinued 40 MG PO Once Per Day 90 July 08, 2018 8:51am September 28, 2018 9:30am Lisinopril Discontinued 40 MG PO Once Per Day 90 90 July 08, 2018 8:51am January 27, 2019 1:55pm Meloxicam Discontinued 7 .5 MG PO 2 Times Per Day 60 July 08, 2018 4:25pm September 28, 2018 9:31am Meloxicam Discontinued 7 .5 MG PO 2 Times Per Day 60 July 08, 2018 4:25pm December 06, 2018 8:10am Alprazolam Discontinued 0.5 MG PO Three times a day 90 September 06, 2018 8:28am February 16, 2019 7:47am take 1 t ablet by mouth three times a day Bupropion Hcl Discontinued 300 MG PO Once Per Day September 06, 2018 8:28am July 12, 2019 9:56am take one tablet by mouth in am Syringe (Disposable) (Syringe) 10 ML syringe Discontinued 1 EACH MC every 2 weeks 06 29September 06, 2018 8:59am September 28, 2018 10:40am With 1 inch 23g needle. Syringe (Disposable) (Syringe) 10 ML syringe Discontinued 1 EACH MC every 2 weeks 06 29September 06, 2018 8:59am October 28, 2018 9:51am With 1 inch 23g needle. Testosterone Cypionate Discontinued 200 MG IM every 2 weeks 06 29September 06, 2018 8:5 9am September 13, 2018 11:00am Inject 1ml into muscle every 2 weeks. Testosterone Cypionate Discontinued 200 MG IM every 2 weeks 06 13September 13, 2018 11 :00am September 28, 2018 10:47am Inject 1ml int o muscle every 2 weeks. Testosterone Cypionate Discontinued 200 MG IM every 2 weeks 06 13September 13, 2018 11 :00am September 30, 2018 11:50am Inject 1ml int o muscle every 2 weeks. Testosterone Cypionate Discontinued 200 MG IM every 2 weeks 06 13September 30, 2018 11:50 am October 03, 2018 5:57am Inject 1ml into muscle every 2 weeks. Testosterone Cypionate Discontinued 200 MG IM every 2 weeks 06 13October 03, 2018 5:57a m October 28, 2018 9:51am Inject 1ml int o muscle every 2 weeks. Testosterone Cypionate Discontinued 200 MG IM every 2 weeks 06 13October 28, 2018 9:51 am November 10, 2018 11:41am Inject 1ml i nto muscle every 2 weeks. FOREST EXAMINER: [id number] Syringe (Disposable) (Bd Luer-Yanira Tip Co ntrol Syring) 10 mL syringe Discontinued 1 EACH MC every 2 weeks 06 29October 28, 2018 9:51am December 06, 2018 8:15am With 1 inch 23g needle. Testosterone Cypionate Discontinued 200 MG IM every 2 weeks 06 13November 10, 2018 11: 41am November 24, 2018 5:32pm Inject 1ml in to muscle every 2 week Testosterone Cypionate Discontinued 200 MG IM every 2 weeks 06 13November 24, 2018 5:3 1pm December 06, 2018 8:14am Inject 1ml int o muscle every 2 week Testosterone Cypionate Discontinued 300 MG IM every 2 weeks 1.5 January 05, 2019 1:42pm February 16, 2019 8:01am Inject 1 .5ml into muscle Q2 weeks. FOREST EXAMINER:[id number] Syringe (Disposable) (Bd Luer-Yanira Tip Co ntrol Syring) 10 mL syringe Discontinued 1 EACH MC every 2 weeks 06 29January 05, 2019 1:42pm February 162018 8:01am With 1 inch 23g needle. Lisinopril Discontinued 40 MG PO Once Per Day 90 90 January 27, 2019 1:55pm January 22, 2020 7:50am Testosterone Cypionate Discontinued 300 MG IM every 2 weeks 1.5 March 16 9 2:21pm April 28, 2019 7:30am Inject 1. 5ml into muscle Q2 weeks. FOREST EXAMINER:[id number] Syringe (Disposable) (Bd Luer-Yanira Tip Co ntrol Syring) 10 mL syringe Discontinued 1 EACH MC every 2 weeks 06 29April 28, 2019 7:29am June 012019 8:37am With 1 inch 23g needle. Testosterone Cypionate Discontinued 300 MG IM every 2 weeks 1.5 April 28 7:29am June 27, 2019 8:37am Inject 1.5 ml into muscle Q2 weeks. FOREST EXAMINER: [id number] Syringe (Disposable) (Bd Luer-Yanira Tip Co ntrol Syring) 10 mL syringe Discontinued 1 EACH MC every 2 weeks 06 29June 27, 2019 8:37am October 19, 2019 10:10am With 1 inch 23g needle. Testosterone Cypionate Discontinued 300 MG IM every 2 weeks 1.5 June 27 0 8:37am August 21, 2019 8:55am Inject 1.5ml into muscle Q2 weeks. FOREST EXAMINER: [id number] Testosterone Cypionate Discontinued 300 MG IM every 2 weeks 1.5 August 21, 2019 8:55am October 19, 2019 11:25am Inject 1.5ml into muscle Q2 weeks. FOREST EXAMINER: [id number] Testosterone Cypionate Discontinued 300 MG IM every 2 weeks 1.5 October 19, 2019 11 :24am November 29, 2019 7:35am Inject 1.5ml i nto muscle Q2 weeks. FOREST EXAMINER: [id number] Meloxicam Discontinued 7 .5 MG PO 2 Times Per Day 180 November 29, 2019 7:16am November 29, 2019 7:47am Syringe (Disposable) (Bd Luer-Yanira Tip Co ntrol Syring) 10 mL syringe Discontinued 1 EACH MC every 2 weeks 06 29November 29, 2019 7:34am November 29, 2019 7:47am With 1 inch 23g needle. Alprazolam Discontinued 0.5 MG PO daily November 29, 2019 7:34am November 29, 2019 7:45am take 1 tablet once a day. Testosterone Cypionate Discontinued 300 MG IM every 2 weeks 1.5 November 29, 2019 7: 34am November 29, 2019 7:45am Inject 1.5ml i nto muscle Q2 weeks. FOREST EXAMINER: [id number] Testosterone Cypionate Discontinued 300 MG IM every 2 weeks 1.5 November 29, 2019 7: 45am January 24, 2020 6:27am Inject 1.5m l into muscle Q2 week Alprazolam Discontinued 0.5 MG PO daily November 29, 2019 7:45am December 29, 2019 6:41am take 1 tablet once a day. Meloxicam Active 7.5 MG PO 2 Times Per Day 180 November 29, 2019 7:46am Syringe (Disposable) (Bd Luer-Yanira Tip Co ntrol Syring) 10 mL syringe Discontinued 1 EACH MC every 2 weeks 1 November 29, 2019 7:46am January 23, 6:27am With 1 inch 23g needle. Alprazolam Discontinued 0.5 MG PO daily December 29, 2019 6:41am January 23, 2020 3:11pm take 1 tablet once a day. Citalopram Discontinued 40 MG PO daily January 22, 2020 7:50am February 06, 2020 9:06am Lisinopril Active 40 MG PO Once Per Day 90 January 22, 2020 7:50am Alprazolam Discontinued 0.5 MG PO daily January 23, 2020 3:11pm February 21, 2020 7:22am take 1 tablet once a day. Syringe (Disposable) (Bd Luer-Yanira Tip Co ntrol Syring) 10 mL syringe Discontinued 1 EACH MC every 2 weeks 06 29January 24, 2020 6:27am February 052019 9:06am With 1 inch 23g needle. Testosterone Cypionate Discontinued 300 MG IM every 2 weeks 1.5 January 24, 2020 6:27am February 05, 2020 8:17pm Inject 1. 5ml into muscle Q2 week Divalproex Discontinued 500 MG PO At Bedtime January 25, 2020 8:48am January 25, 2020 8:51am Divalproex Discontinued 500 MG PO At Bedtime January 25, 2020 8:51am March 13, 2020 9:07am Taken over from Testosterone Cypionate Discontinued 300 MG IM every 2 weeks 1.5 14 February 05 9:04am February 27, 2020 3:08pm Inject 1 .5ml into muscle Q2 week Citalopram Discontinued 40 MG PO daily February 06, 2020 9:05am March 13, 2020 9:05am Syringe (Disposable) (Bd Luer-Yanira Tip Co ntrol Syring) 10 mL syringe Discontinued 1 EACH MC every 2 weeks 06 29February 06, 2020 9:06am April 11, 2020 9:46am With 1 inch 23g needle. Alprazolam Discontinued 0.5 MG PO daily February 21, 2020 7:22am March 18, 2020 2:25pm take 1 tablet once a day. Testosterone Cypionate Discontinued 300 MG IM every 2 weeks 1.5 14 February 26, 2 020 3:07pm April 04, 2020 10:27am Inject 1. 5ml into muscle Q2 week FOREST EXAMINER:[id number] Prazosin Active 1 MG PO 2 Times Per Day 60 March 18, 2020 2:23pm Alprazolam Discontinued 0.5 MG PO daily March 18, 2020 2:24pm March 18, 2020 2:36pm FOREST EXAMINER: [id number] Alprazolam Discontinued 0.5 MG PO daily March 18, 2020 2:36pm April 11, 2020 9:33am FOREST EXAMINER: [id number] Clonazepam Discontinued 0.5 MG PO 2 Times Per Day 60 April 11, 2020 9:33am May 07, 2020 1:11pm Syringe (Disposable) ([employer] Luer-Yanira Tip Co ntrol Syring) 10 mL syringe Active 1 EACH MC every 2 weeks 1 April 11, 2020 9:46am With 1 inch 23g needle. Testosterone Cypionate Discontinued 200 MG IM every 2 weeks 1 April 11, 2020 9:46am May 07, 2020 1:05pm Inject 1ml into muscle Q2 week FOREST EXAMINER:[id number] Clonazepam Discontinued 0.5 MG PO 2 Times Per Day 60 May 07, 2020 1:11pm June 04, 2020 2:27pm Problems Active Problems Medical Problem Onset Date Status PTSD (post-traumatic stress disorder) Active Sinus pain Active Anxiety Active Depression Active Headache Active Paranoia Active Low testosterone in male Active Inactive/Resolved Problems Medical Problem Onset Date Status Sleep apnea Resolved Lump in neck Resolved Umbilical hernia Resol jeanna Suspicious nevus Resol jeanna Environmental allergies Resolved Eye infection Resolved Hypertension Resolved Procedures Procedure Date Performed Status February 07, [address] Abd/pel w/ contrast January 8:21pm completed Relevant Diagnostic Tests and/or Laboratory Data Laboratory Results Test Date/Time Result Interpretation Reference Range Result Comment Performing Site White Blood Count February 04 0 8:35pm 9.0 10e3/uL 4.45-10.71 [facility], [address] [facility] [address] White Blood Count January 31 0 2:22pm 10.0 10e3/uL 4.45-10.71 [facility], [address] [facility] [address] White Blood Count July 31, 2019 11:18am 7.7 10e3/uL 4.45-10.71 [facility], [address] [place] [address] Red Blood Count February 05, 2020 8:35pm 5.38 10e6/uL 4.3-6.1 [facility], [address] [place] [address] Red Blood Count February 01, 2020 2:22pm 5.61 10e6/uL 4.3-6.1 [facility], [address] [place] [address] Red Blood Count July 31, 2019 11:18am 5.92 10e6/uL 4.3-6.1 [facility], [address] [place] [id number] Hemoglobin February 05, 2020 8:35pm 16.6 g/dL [facility], [address] [place] [address] Hemoglobin February 01, 2020 2:22pm 17.4 g/dL [facility], [address] [place] [address] Hemoglobin July 31, 2019 11:18am 17.9 g/dL [facility], [address] [place] [address] Hematocrit February 05, 2020 8:35pm 47.1 % 42-52 [facility], [address] [place] [address] Hematocrit February 01, 2020 2:22pm 48.4 % 42-52 [facility], [address] [place] [address] Hematocrit July 31, 2019 11:18am 51.5 % 42-52 [facility], [address] [place] [address] Mean Corpuscular Volume January 8:35pm 87.5 fl 80-96 [facility], [address] [place] [address] Mean Corpuscular Volume January 2:22pm 86.3 fl 80-96 [facility], [address] [place] [address] Mean Corpuscular Volume July 30 11:18am 87.0 fl 80-96 [facility], [address] [place] [address] Mean Corpuscular Hemoglobin Septembe 2019 8:35pm 30.9 pg 27-31 [facility], [address] [place] [address] Mean Corpuscular Hemoglobin Septembe 2019 2:22pm 31.0 pg - [facility], [address] [place] [address] Mean Corpuscular Hemoglobin July 11:18am 30.[address] [facility], [address] [place] [address] Mean Corpuscular Hemoglobin Concent February 05, 2020 8:35pm 35.2 g/dl [address] [place] [address] LABORATORY, [address] [place] [address] Mean Corpuscular Hemoglobin Concent February 01, 2020 2:22pm 36.0 g/dl [facility], [address] [place] [address] Mean Corpuscular Hemoglobin Concent July 31, 2019 11:18am 34.8 g/dl [address] [place] [address] LABORATORY, [address] [place] [address] Red Cell Distribution Width Septembe 2019 8:35pm 13 % 1115 [facility], [address] [place] [address] Red Cell Distribution Width Septembe 2019 2:22pm 13 % 11-15 [facility], [address] [place] [address] Red Cell Distribution Width July 11:18am 13 % 15 [facility], [address] [place] [address] Platelet Count February 05, 2020 8:35pm 246 10e3/ul 130-472 [facility], [address] [place] [address] Platelet Count February 01, 2020 2:22pm 256 10e3/ul 130-472 [facility], [address] [place] [address] Platelet Count July 31, 2019 11:18am 239 10e3/ul 130-472 [facility], [address] [place] [address] Mean Platelet Volume February 05, 2020 8:35pm 9.5 fl 9.1-13.1 [facility], [address] [place] [address] Mean Platelet Volume February 01, 2020 2:22pm 9.5 fl 9.1-13.1 [facility], [address] [place] [address] Mean Platelet Volume July 31, 2019 11:18am 9.9 fl 9.1-13.1 [facility], [address] [place] [address] Neutrophils (%) (Auto) January 8:35pm 55.4 % 41-77 [facility], [address] [place] [address] Neutrophils (%) (Auto) January 2:22pm 55.4 % 41-77 [facility], [address] [place] [address] Neutrophils (%) (Auto) July 30 11:18am 58.8 % 41-[address] [place] [address] LABORATORY, [address] [place] [address] Absolute Neutrophil February 04, 020 8:35pm 5.0 # 1.7-7.6 [facility], [address] [place] [address] Absolute Neutrophil January 31, 020 2:22pm 5.6 # 1.7-7.6 [facility], [address] [place] [address] Absolute Neutrophil July 31, 2019 11:18a m 4.5 # 1.7-7.6 [facility], [address] [place] [address] Lymphocytes (%) (Auto) January 8:35pm 36.9 % 14-46 [facility], [address] [place] [address] Lymphocytes (%) (Auto) January 2:22pm 35.2 % 14-46 [facility], [address] [place] [address] Lymphocytes (%) (Auto) July 30 11:18am 32.6 % 14-46 [facility], [address] [place] [address] Lymphocytes # (Auto) February 05, 2020 8:35pm 3.3 # 0.6-4.6 [facility], [address] [place] [address] Lymphocytes # (Auto) February 01, 2020 2:22pm 3.5 # 0.6-4.6 [facility], [address] [place] [address] Lymphocytes # (Auto) July 31, 2019 11:18am 2.5 # 0.6-4.6 [facility], [address] [place] [address] 19451 Monocytes (%) (Auto) February 05, 2020 8:35pm 6.6 % 4-12 [facility], [address] [place] [address] Monocytes (%) (Auto) February 01, 2020 2:22pm 8.5 % 4-12 [facility], [address] [place] [address] Monocytes (%) (Auto) July 31, 2019 11:18am 7.8 % 4-12 [facility], [address] [place] [id number] Monocytes # February 05, 2020 8:35pm 0.6 # 0.2-1.2 [facility], [address] [place] [address] Monocytes # February 01, 2020 2:22pm 0.9 # 0.2-1.2 [facility], [address] [place] [address] Monocytes # July 31, 2019 11:18am 0.6 # 0.2-1.2 [facility], [address] [place] [address] 20234 Eosinophils (%) (Auto) January 8:35pm 0.6 % 0-7 [facility], [address] [place] [address] Eosinophils (%) (Auto) January 2:22pm 0.5 % 0-7 [facility], [address] [place] [address]807 Eosinophils (%) (Auto) July 30 11:18am 0.6 % 0-7 [facility], [address] [place] [address] Absolute Eosinophils (CBC) February 05, 2020 8:35pm 0.1 # 0.0-0.5 [facility], [address] [place] [address] 08493 Absolute Eosinophils (CBC) February 01, 2020 2:22pm 0.1 # 0.0-0.5 [facility], [address] [place] [address] Absolute Eosinophils (CBC) July 11:18am 0.1 # 0.0-0.5 [facility], [address] [place] [address] 90661 Basophils (%) (Auto) February 05, 2020 8:35pm 0.3 % 0.4-1.3 [facility], [address] [place] [address] 83898 Basophils (%) (Auto) February 01, 2020 2:22pm 0.3 % 0.4-1.3 [facility], [address] [place] [address] 61492 Basophils (%) (Auto) July 31, 2019 11:18am 0.1 % 0.4-1.3 [facility], [address] [place] [address] 21083 Absolute Basophils (CBC) February 042019 8:35pm 0.0 # 0.0-0.2 [facility], [address] [place] [address] 66058 Absolute Basophils (CBC) January 312019 2:22pm 0.0 # 0.0-0.2 [facility], [address] [place] [address] 13765 Absolute Basophils (CBC) July 31, 2019 11:18am 0.0 # 0.0-0.2 [facility], [address] [place] [address] 60322 Immature Granulocyte % (Auto) 2019 8:35pm 0.2 % 0-2 [facility], [address] [place] [address] 15779 Immature Granulocyte % (Auto) 2019 2:22pm 0.1 % 0-2 [facility], [address] [place] [address] 78106 Immature Granulocyte % (Auto) July 31, 2019 11:18am 0.1 % 0-2 [facility], [address] [place] [address] 78717 Absolute Immature Granulocyte (auto February 05, 2020 8:35pm 0.0 # 0-0.1 [facility], [address] [place] [address] 46408 Absolute Immature Granulocyte (auto February 01, 2020 2:22pm 0.0 # 0-0.1 [facility], [address] [place] [address] 18785 Absolute Immature Granulocyte (auto July 31, 2019 11:18am 0.0 # 0-0.1 [facility], [address] [place] [address] 70912 Add Manual Differential January 8:35pm No [facility], [address] [place] [address] 46766 Add Manual Differential January 2:22pm No [facility], [address] [place] [address] 29264 Add Manual Differential July 30 11:18am No [facility], [address] [place] [address] 55582 Prothrombin Time February 05, 2020 8:35p m 11.2 SECONDS 9.6-12.3 [facility], [address] [place] [address] 90201 INR International Normalized Ratio S ep2019 8:35pm 1.1 0.9-1.1 THE INR IS OPERATIONALLY DEFINED FOR GILMA SH PLASMA FROMPATIENTS STABILIZED ON ORAL ANTICOAGULANTS. ROUTINE ANTICOAGULANT THERAPY 2.0-3.0RECURRENT SYSTEMIC EMBOLISM/HEART VALVE REPLACEMENT 2.5-3.5 [facility], [address] [place] [address] 05316 Partial Thromboplastin Time - [place] S ep2019 8:35pm 26.4 SECONDS 22.7-31.6 [facility], [address] [place] [address] 70535 Urine Color July 31, 2019 11:25am Yellow [facility], [address] [place] [address] 71294 Urine Color February 05, 2020 8:15pm Yellow [facility], [address] [place] [address] 24718 Urine Appearance February 05, 2020 8:15p m Clear CLEAR [facility], [address] [place] [address] 21236 Urine Appearance July 31, 2019 11:25am Clear CLEAR [facility], [address] [place] [address] 75046 Urine pH February 05, 2020 8:15pm 7.0 [facility], [address] [place] [address] 04226 Urine pH July 31, 2019 11:25am 8.0 [facility], [address] [place] [address] 91854 Urine Specific [employer] January 8:15pm 1.008 [facility], [address] [place] [address] 55019 Urine Specific [employer] July 30 11:25am 1.022 [facility], [address] [place] [address] 53464 Urine Leukocyte Esterase July 31, 2019 11:25am Negative NEGATIVE [facility], [address] [place] [address] 21419 Urine Leukocyte Esterase February 042019 8:15pm Negative NEGATIVE [facility], [address] [place] [address] 60519 Urine Nitrite July 31, 2019 11:25am Negative NEGATIVE [facility], [address] [place] [address] 50646 Urine Nitrate February 05, 2020 8:15pm Negative NEGATIVE [facility], [address] [place] [address] 29674 Urine Protein February 05, 2020 8:15pm Negative NEGATIVE [facility], [address] [place] [address] 86697 Urine Protein July 31, 2019 11:25am Negative NEGATIVE [facility], [address] [place] [address] 82068 Urine Glucose February 05, 2020 8:15pm Negative NEGATIVE [facility], [address] [place] [address] 85088 Urine Glucose July 31, 2019 11:25am Negative NEGATIVE [facility], [address] [place] [address] 17228 Urine Ketones February 05, 2020 8:15pm Trace NEGATIVE [facility], [address] [place] [address] 26095 Urine Ketones July 31, 2019 11:25am Negative NEGATIVE [facility], [address] [place] [address] 41914 Urine Urobilinogen February 04 8:15pm 0.2 eu/dl [facility], [address] [place] [address] 53750 Urine Urobilinogen July 31, 2019 11:25am 1 eu/dl [facility], [address] [place] [address] 63756 Urine Bilirubin February 05, 2020 8:15pm Negative NEGATIVE [facility], [address] [place] [address] 25071 Urine Bilirubin July 31, 2019 11:25am Negative NEGATIVE [facility], [address] [place] [address] 02676 Urine Blood July 31, 2019 11:25am Negative NEGATIVE [facility], [address] [place] [address] 07538 Urine Blood February 05, 2020 8:15pm Negative NEGATIVE [facility], [address] [place] [address] 23850 Microscopic Urinalysis Comment July 31, 2019 11:25am No [facility], [address] [place] [address] 29771 Add Urine Microanalysis January 8:15pm No [facility], [address] [place] [address] 69024 Blood Urea Nitrogen February 04 020 8:35pm 8 mg/dL 02-20 [facility], [address] [place] [address] 80898 Blood Urea Nitrogen January 31 020 2:22pm 6 mg/dL 02-20 [facility], [address] [place] [address] 23752 Blood Urea Nitrogen July 31, 2019 11:18a m 17 mg/dL 02-20 [facility], [address] [place] [address] 78260 Sodium Level February 05, 2020 8:35pm 137 mmol/L 132-146 [facility], [address] [place] [address] 71288 Sodium Level February 01, 2020 2:22pm 134 mmol/L 132-146 [facility], [address] [place] [address] 59980 Sodium Level July 31, 2019 11:18am 138 mmol/L 132-146 [facility], [address] [place] [address] 08506 Potassium Level February 05, 2020 8:35pm 3.7 mmol/L 3.5-5.5 [facility], [address] [place] [address] 60044 Potassium Level February 01, 2020 2:22pm 4.0 mmol/L 3.5-5.5 [facility], [address] [place] [address] 58961 Potassium Level July 31, 2019 11:18am 4.5 mmol/L 3.5-5.5 [facility], [address] [place] [address] 44398 Chloride Level February 05, 2020 8:35pm 105 mmol/l 99-109 [facility], [address] [place] [address] 14149 Chloride Level February 01, 2020 2:22pm 101 mmol/l 99-109 [facility], [address] [place] [address] 61256 Chloride Level July 31, 2019 11:18am 105 mmol/l 99-109 [facility], [address] [place] [address] 56351 Carbon Dioxide Level February 05, 2020 8:35pm 25 mmol/l 20-31 [facility], [address] [place] [address] 24671 Carbon Dioxide Level February 01, 2020 2:22pm 28 mmol/l 20-31 [facility], [address] [place] [address] 77531 Carbon Dioxide Level July 31, 2019 11:18am 28 mmol/l 20-31 [facility], [address] [place] [address] 72231 Anion Gap February 05, 2020 8:35pm 11 mmol/l 8-16 [facility], [address] [place] [address] 60681 Anion Gap February 01, 2020 2:22pm 9 mmol/l 8-16 [facility], [address] [place] [address] 04961 Anion Gap July 31, 2019 11:18am 10 mmol/l 8-16 [facility], [address] [place] [address] 25631 Glucose Level February 05, 2020 8:35pm 92 mg/dL 74-106 [facility], [address] [place] [address] 71075 Glucose Level February 01, 2020 2:22pm 92 mg/dL 74-106 [facility], [address] [place] [address] 66726 Glucose Level July 31, 2019 11:18am 97 mg/dL 74-106 [facility], [address] [place] [address] 27736 Creatinine February 05, 2020 8:35pm 0.7 mg/dL 0.5-1.1 [facility], [address] [place] [address] Creatinine February 01, 2020 2:22pm 0.9 mg/dL 0.5-1.1 [facility], [address] [place] [address] 68330 Creatinine July 31, 2019 11:18am 0.9 mg/dL 0.5-1.1 [facility], [address] [place] [address] 48213 Glomerular Filtration Rate Calc Sept emb2019 8:35pm Greater than 60 ml/min ABOVE 60 [facility], [address] [place] [address] Glomerular Filtration Rate Calc Sept ember 2019 2:22pm Greater than 60 ml/min ABOVE 60 [facility], [address] [place] [address] 52819 Glomerular Filtration Rate Calc Martin 2019 11:18am Greater than 60 ml/min ABOVE 60 [facility], [address] [place] [address] 95238 Alanine Aminotransferase (ALT/SGPT) February 05, 2020 8:35pm 36 U/L 10-49 [facility], [address] [place] [address] Alanine Aminotransferase (ALT/SGPT) July 31, 2019 11:18am 44 U/L 10-49 [facility], [address] [place] [address] 45061 Aspartate Amino Transf (AST/SGOT) Se ptember 2019 8:35pm 22 U/L 0-33 [facility], [address] [place] [address] 60426 Aspartate Amino Transf (AST/SGOT) [facility] 2019 11:18am 20 U/L 0-33 [facility], [address] [place] [address] 01036 Alkaline Phosphatase February 05, 2020 8:35pm 55 U/L 45-129 [facility], [address] [place] [address] 53197 Alkaline Phosphatase July 31, 2019 11:18am 63 U/L 45-129 [facility], [address] [place] [address] 59359 Calcium Level February 05, 2020 8:35pm 9.4 mg/dL 8.5-10.1 [facility], [address] [place] [address] 86046 Calcium Level February 01, 2020 2:22pm 9.9 mg/dL 8.5-10.1 [facility], [address] [place] [address] 12014 Calcium Level July 31, 2019 11:18am 9.1 mg/dL 8.5-10.1 [facility], [address] [place] [address] 16863 Total Bilirubin February 05, 2020 8:35pm 0.7 mg/dL 0.3-1.2 [facility], [address] [place] [address] 14999 Total Bilirubin July 31, 2019 11:18am 1.0 mg/dL 0.3-1.2 [facility], [address] [place] [address] 67138 Albumin February 05, 2020 8:35pm 3.9 g/dL 3.2-4.8 [facility], [address] [place] [address] 72460 Albumin July 31, 2019 11:18am 4.1 g/dL 3.2-4.8 [facility], [address] [place] [address] 84925 Serum Total Protein February 04 020 8:35pm 6.6 g/dL 5.7-8.2 [facility], [address] [place] [address] 42672 Serum Total Protein July 31, 2019 11:18a m 7.1 g/dL 5.7-8.2 [facility], [address] [place] [address] 46175 Lactic Acid Level February 04 0 8:35pm 0.8 mmol/L 0.5-2.2 [facility], [address] [place] [address] 33967 Triglycerides Level July 31, 2019 11:18a m 174 mg/dL 0-150 [facility], [address] [place] [address] 86719 Cholesterol Level July 31, 2019 11:18am 212 mg/dL 120-200 [facility], [address] [place] [address] 82373 HDL Cholesterol July 31, 2019 11:18am 44 mg/dL HDL Less than 40 mg/dL: Major risk for CHDHDL Greater than 59 mg/dL: Low risk for CHD [facility], [address] [place] [address] LDL Cholesterol, Calculated July 11:18am 134 mg/dL 0-100 [facility], [address] [place] [address] Free Testosterone (Direct) April 04, 2020 10:50am 218.6 pg/mL The concentration of free testosterone is derivedfrom a mathematical model using total testosteroneby LCMSMS, sex hormone binding globulin and albumin.This test was developed and its analytical performancecharacteristics have been determined by [employer] [place], [place]. It hasnot been cleared or approved by the U.S. Food and DrugAdministration. This assay has been validated pursuantto the CLIA regulations and is used for clinicalpurposes.THIS TEST WAS PERFORMED AT:[facility] [place] [address]INYXHKTBLAISE FOY MD,PHD [facility] Testosterone Level April 04 0 10:50am 649 ng/dL THIS TEST WAS PERFORMED AT:[place] [id number] RAMIREZ MD [facility] Microbiology Results Procedure Source Result Collection Date/Time Result Date/Time Result Comment Performing Site Venous blood No Organi sms Detected February 07, 2020 7:01pm February 09, 2020 11:39am [facility], [address] [place], [place] [address] Diagnostic Imaging Reports Report Dictated Date/Time Dictated By Status Radiology Report February 05, 2020 11:46pm Preston Lucas MD completed [place] [id number] [phone] NAME SEX PT STATUS ACCOUNT NUMBER PIPER AN REG ER [id number] ORDERING PHYSICIAN LOCATION MEDICAL RECORD NO. Skip Rutherford MD ER [id number] ATTENDING PHYSICIAN DATE OF DATE OF EXAM/TIME Kelli Mcmanus NP 1970 02/05/202120 TYPE / EXAM CT Abd/pel w/ contrast REASON FOR EXAM tender umbilical hernia Clinical History/Indication for Exam: tender umbilical hernia CT ABDOMEN AND PELVIS WITH INTRAVENOUS CONTRAST INDICATION: tender umbilical hernia TECHNIQUE: Axial computed tomography images of the abdomen and pelvis with intravenous contrast. Sagittal and coronal reformatted images were created and reviewed. This CT exam was performed using one or more of the following dose reduction techniques: automated exposure control, adjustment of the mA and/or kV according to patient size, and/or use of iterative reconstruction technique. COMPARISON: No relevant prior studies available. FINDINGS: Lung bases: Unremarkable. No mass. No consolidation. Mediastinum: There is a small hiatus hernia. ABDOMEN: Liver: Unremarkable. No mass. Gallbladder and bile ducts: Unremarkable. No calcified stones. No ductal dilation. Pancreas: Unremarkable. No mass. No ductal dilation. Spleen: Unremarkable. No splenomegaly. Adrenals: Unremarkable. No mass. Kidneys and ureters: Unremarkable. No solid mass. No hydronephrosis. Stomach and bowel: There is a 26 mm fat-containing umbilical hernia without induration. The hernia sac also includes a small portion of small bowel. There are no complicating features. There is moderate retained stool in the colon. No obstruction. No mucosal thickening. PELVIS: Appendix: The appendix is not identified. There are no secondary signs of acute appendicitis. Bladder: Unremarkable. No mass. Reproductive: Unremarkable as visualized. ABDOMEN and PELVIS: Intraperitoneal space: Unremarkable. No free air. No significant fluid collection. Bones/joints: No acute fracture. No dislocation. Soft tissues: See above. Vasculature: Unremarkable. No abdominal aortic aneurysm. Lymph nodes: Unremarkable. No enlarged lymph nodes. IMPRESSION: 1. There is a 26 mm fat-containing umbilical hernia without induration. The hernia sac also includes a small portion of small bowel. There are no complicating features. 2. There is moderate retained stool in the colon. 3. There is a small hiatus hernia. 4. The appendix is not identified. There are no secondary signs of acute appendicitis. Automatic exposure control was used as a dose lowering technique. Contrast Type: isovue 300 and oral gastrografin. Contrast Volume: 100cc / 20ml REPORT SIGNATURE ON FILE 02/05/2020 (23:46 Eastern Time ) Signed by: Preston Lucas M.D. Reported By Preston Lucas MD on 02/05/20 9630 Signed By Preston Lucas MD on 02/05/20 369 Date Time CC: Kelli Mcamnus; Preston Lucas MD Techn: RAULITO Romero Dt/Tm: Trans by: DT Prt Dt/Tm: : Total DLP = 1145.00 mGy-cm : Total Radiation Dose = 17.1750 mSv Lifetime Dose: 17.1750 mS v Health Concerns Health Concerns may be documented in an alternate section. Advance Directives Advance Directive Response Recorded Date/Time Advanced Directive No Se pt2019 8:13pm Does Patient have a DNR? No February 05, 2020 8:13pm Healthcare Proxy No Jan ember 2019 8:13pm Living Will No February 01, 2020 1:41pm Chief Complaint and Reason for Visit Chief Complaint Medication check Z00.00,I10 Allergies Amb Documentation Snoring, Excessive Daytime Sleepiness, [place], HTN Skin complaints Hernia PRE OP/K42.9 ABD PAIN, BACK PAIN Medication check Medication check R79.89 Anxiety follow-up Depression follow-up Depression follow-up Telemed Visit Reason for Visit Lump in neck Umbilical hernia Umbilical hernia Depression Anxiety Depression Paranoia PTSD (post-traumatic stress disorder) Anxiety Depression Depression Headache Sinus pain Encounters Encounter Location(s) Ar rival/Admit Date Discharge/Depart Date Provider(s) Departed Physician/Provider Office Visit [facility] July 12, 2019 9:48am July 12, 2019 10:15am Kelli Mcmanus Registered Referred [facility] July 31, 2019 11:05am Kelli Mcmanus Departed Physician/Provider Office Visit [facility] October 19, 2019 8:56am October 19, 2019 9:31am Kelli Mcmanus Registered Outpatient [facility] D[facility] November 13, 2019 2:43pm null Registered Referred [facility] November 16, 2019 6:30pm Kelli Mcmanus Departed Physician/Provider Office Visit [facility] December 20, 2019 9:19am December 20, 2019 9:55am Kelli Mcmanus Departed Physician/Provider Office Visit [facility] General Surgery February 01, 2020 1:31pm February 01, 2020 2:13pm Naveed Hannon MD Registered Referred [facility] February 01, 2020 2:19pm Naveed Hannon MD Departed Emergency [facility] ER February 05, 2020 7:55pm February 06, 2020 12:37am null Registered Referred [facility] February 07, 2020 5:55pm [facility] Departed Physician/Provider Office Visit [facility] March 13, 2020 8:54am March 13, 2020 9:40am Kelli Mcmanus Departed Physician/Provider Office Visit [facility] April 04, 2020 10:04am April 04, 2020 10:33am [facility], 2020 10:35am Kelli Mcmanus Departed Physician/Provider Office Visit [facility] April 24, 2020 11:39am April 24, 2020 11:50am Kelli Mcmanus Departed Physician/Provider Office Visit [facility] May 07, 2020 10:55am May 07, 2020 11:28am Kelli Mcmanus Departed Physician/Provider Office Visit [facility] June 04, 2020 1:14pm June 04, 2020 1:47pm Kelli valladares Departed Physician/Provider Office Visit [facility] June 21, 2020 9:36am June 21, 2020 10:17am Kelli Mcmanus Recent Diagnosis Onset Date Lump in neck Umbilical hernia Umbilical hernia Depression Anxiety Depression Paranoia PTSD (post-traumatic stress disorder) Anxiety Depression Depression Headache Sinus pain Assessments Diagnosis Onset Date Res olution Status Lump in neck resolved Umbilical hernia resolved Umbilical hernia resolved Depression acute Anxiety acute Depression acute Paranoia acute PTSD (post-traumatic stress disorder) acute Anxiety acute Depression acute Depression acute Headache acute Sinus pain acute Functional Status No Functional Status information available Goals Goals may be documented in an alternate section. Immunizations Immunization Event Date Not Given Reason Dose Number Occupational Therapy Co Director Lot Number Vaccine Information Statement (VIS) Deta il influenza vaccine, inactivated Octob er 2019 [id number] Mental Status Observation Response Kal e Recorded Impairments No impairments or barriers February 05, 2020 8:13pm Medical Equipment No Medical Equipment Information available Insurance Providers Guarantor PIPER AN Address [address] [place] [address] [address] [place] [address] Contact Info. Home Phone: Payer Policy Id Coverage Id Subscriber's Name Subscriber Id Effective Date Expiration Date [employer] [id number] PIPER AN [id number] [employer] [id number] PIPER AN [id number] [facility] [id number] PIPER AN [id number] [employer] H[employer] [id number] PIPER AN [id number] Self Pay Self N/A [facility] [id number] PIPER MILLERLER [id number] Plan of Treatment Continue 150mg sertaline. See back in 2-3 months for annual PE. [facility] Anxiety at baseline. Will keep follow up for next month. Paperwork completed. No concerns today. Has an appt tomorrow with mental health. I will increase his zoloft to 150mg and see back in one month. He has some denial about have schizophrenia, however, his symptoms are directly correlated. He is taking the prazosin and olanzapine nightly. He is doing well on new medications. He was seeing in [place], however, he is unable to be seen there for psycho- therapy, as often as he needs. He would like to be seen elsewhere so that he is able to be seen ever y 2 weeks. He also struggles with co-pays for this. It is 45 dollars each visit. I discussed his case with Kandice Domínguez, who will reach out to Maryanne Hickman to help him set up best insurance f or best coverage. He agrees to this. I will refer to Kar Soto for psycho-therapy. 49 yoM who comes in with long-standing umbilical hernia that has been enlarging with time and more bothersome now and wishes to get it repaired. It is reducible and never had an episode of incarceration. -Discussed repair of the umbilical hernia via open approach. Details fo the pro cedure as well as risks which include but are not limited to bleeding, infection, and recurrences were all discussed. He wishes to proceed with the operation. I will refer to line locator. He is taking 2 allergy medications already at this p oint. Testing may be helpful, possible serum injections. Healthy 48 year old male. Health maintenance up to date, labs ordered. No concerns. Follow up in 6 months. Well controlled. Labs ordered. Follow up in 6 months. Future Tests Future scheduled test information is unavailable Pending Tests Pending diagnostic test information is unavailable Future Visits Future appointment information is unavailable Referrals to Other Providers Reason for Referral Referral Start Date Provider Provider Anita ct Information Provider Address Juan Garcia MD Email: [email or web address] Phone: [phone] [phone] Future Procedures Future procedure information is unavailable Future Medications Future medication information is unavailable Patient Instructions DASH Eating Plan (GEN) Hypertension (GEN) Social History Smoking Status Status Date of Observation Current every day smoker February 042019 9:21pm Observation Status Observation Response Kal e of Response Smoking Status Current every day smoker February 05, 2020 8:21pm Alcohol Use Yes Septembe r 2019 8:21pm Substance Use Yes Janem adán 2019 8:21pm When did patient quit smoking? 4 yrs ago July 08, 2018 9:29am Assigned Sex Male Vital Signs Vital Reading Result Ref erence Range Collection Date/Time Height 70 [in_i] July 12, 2019 9:52am Weight 256.00 [lb_av] July 12, 2019 9:52am Heart Rate 71 /min 60-100 July 12, 2019 9:52am Respiratory rate 18 /min -July 12, 2019 9:52am Oxygen saturation by Pulse oximetry 99 % 95- 100 July 12, 2019 9:52am BP Systolic 132 mm[Hg] July 12, 2019 9:52am BP Diastolic 88 mm[Hg] July 12, 2019 9:52am BMI (Body Mass Index) 36.7 kg/m2 July 12, 2019 9:52am Height 70 [in_i] October 19, 2019 10:05am Weight 267.00 [lb_av] October 19, 2019 10:05am Body Temperature 98.2 [degF] 97.6-99.5 October 19, 2019 10:05am Heart Rate 73 /min 60-100 October 19, 2019 10:05am Respiratory rate 18 /min 12-October 19, 2019 10:05am Oxygen saturation by Pulse oximetry 97 % 95- 100 October 19, 2019 10:05am BP Systolic 144 mm[Hg] October 19, 2019 10:05am BP Diastolic 88 mm[Hg] October 19, 2019 10:05am BMI (Body Mass Index) 38.2 kg/m2 October 19, 2019 10:05am Weight 260.00 [lb_av] December 20, 2019 10:29am Body Temperature 98.6 [degF] 97.6-99.5 December 20, 2019 10:29am Heart Rate 82 /min 60-100 December 20, 2019 10:29am Respiratory rate 18 /min -December 20, 2019 10:29am Oxygen saturation by Pulse oximetry 97 % 95- 100 December 20, 2019 10:29am BP Systolic 132 mm[Hg] December 20, 2019 10:29am BP Diastolic 76 mm[Hg] December 20, 2019 10:29am Height 70 [in_i] February 01, 2020 2:34pm Weight 249.00 [lb_av] February 01, 2020 2:34pm Body Temperature 98.8 [degF] 97.6-99.5 February 01, 2020 2:34pm Heart Rate 81 /min 60-100 February 01, 2020 2:34pm Oxygen saturation by Pulse oximetry 98 % 95- 100 February 01, 2020 2:34pm BP Systolic 130 mm[Hg] February 01, 2020 2:34pm BP Diastolic 72 mm[Hg] February 01, 2020 2:34pm BMI (Body Mass Index) 35.7 kg/m2 February 01, 2020 2:34pm Height 71 [in_i] February 05, 2020 9:13pm Weight 250.00 [lb_av] February 05, 2020 9:13pm Body Temperature 98.7 [degF] 97.6-99.5 February 06, 2020 12:56am Heart Rate 88 /min 60-100 February 06, 2020 12:56am Respiratory rate 18 /min -February 06, 2020 12:56am Oxygen saturation by Pulse oximetry 99 % 95- 100 February 06, 2020 12:56am BP Systolic 144 mm[Hg] February 06, 2020 12:56am BP Diastolic 86 mm[Hg] February 06, 2020 12:56am Height 71 [in_i] March 13, 2020 10:01am Weight 254.00 [lb_av] March 13, 2020 10:01am Body Temperature 97.2 [degF] 97.6-99.5 March 13, 2020 10:01am Heart Rate 86 /min 60-100 March 13, 2020 10:01am Respiratory rate 18 /min 12-March 13, 2020 10:01am Oxygen saturation by Pulse oximetry 98 % 95- 100 March 13, 2020 10:01am BP Systolic 148 mm[Hg] March 13, 2020 10:01am BP Diastolic 84 mm[Hg] March 13, 2020 10:01am BMI (Body Mass Index) 35.4 kg/m2 March 13, 2020 10:01am Height 71 [in_i] April 04, 2020 10:06am Weight 254.00 [lb_av] April 04, 2020 10:06am Body Temperature 96.9 [degF] 97.6-99.5 April 04, 2020 10:06am Heart Rate 84 /min 60-100 April 04, 2020 10:06am Respiratory rate 18 /min -April 04, 2020 10:06am Oxygen saturation by Pulse oximetry 98 % 95- 100 April 04, 2020 10:06am BP Systolic 148 mm[Hg] April 04, 2020 10:06am BP Diastolic 82 mm[Hg] April 04, 2020 10:06am BMI (Body Mass Index) 35.4 kg/m2 April 04, 2020 10:06am Weight 254.00 [lb_av] April 24, 2020 11:43am Body Temperature 98.1 [degF] 97.6-99.5 April 24, 2020 11:43am Heart Rate 74 /min 60-100 April 24, 2020 11:43am Respiratory rate 22 /min -April 24, 2020 11:43am Oxygen saturation by Pulse oximetry 98 % 95- 100 April 24, 2020 11:43am BP Systolic 140 mm[Hg] April 24, 2020 11:43am BP Diastolic 70 mm[Hg] April 24, 2020 11:43am Weight 254.00 [lb_av] May 07, 2020 11:00am Body Temperature 98.1 [degF] 97.6-99.5 May 07, 2020 11:00am Heart Rate 68 /min 60-100 May 07, 2020 11:00am Respiratory rate 20 /min 12-May 07, 2020 11:00am Oxygen saturation by Pulse oximetry 98 % 95- 100 May 07, 2020 11:00am BP Systolic 120 mm[Hg] May 07, 2020 11:00am BP Diastolic 60 mm[Hg] May 07, 2020 11:00am Weight 265.00 [lb_av] June 04, 2020 1:25pm Body Temperature 99.2 [degF] 97.6-99.5 June 04, 2020 1:25pm Heart Rate 97 /min 60-100 June 04, 2020 1:25pm Respiratory rate 22 /min -June 04, 2020 1:25pm Oxygen saturation by Pulse oximetry 97 % 95- 100 June 04, 2020 1:25pm BP Systolic 140 mm[Hg] June 04, 2020 1:25pm BP Diastolic 80 mm[Hg] June 04, 2020 1:25pm
--- OUTSIDE RECORDS SUMMARY | 2020-06-28 11:15 | CCD | Continuity of Care Document ---
Author Author Júnior [facility] Organization Unknown Address 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 Procedures Date Code Description Status 04/18/2020 19827 Psychiatric Diagnostic Evaluatio n Completed Medical Devices Description No Information Available Encounters Description No Information Available Assessments Date Code Description Provider 06/06/2020 F25.1 Schizoaffective disorder, depres sive type Kaylie Ashli, [facility] 05/28/2020 F25.1 Schizoaffective disorder, depres sive type Kaylie Ashli, [facility] 05/20/2020 F25.1 Schizoaffective disorder, depres sive type Kaylie Ashli, [facility] 05/08/2020 F25.1 Schizoaffective disorder, depres sive type Kaylie Ashli, [facility] 05/06/2020 F25.1 Schizoaffective disorder, depres sive type Eliane Chavira RN 05/03/2020 F25.1 Schizoaffective disorder, depres sive type Kaylie [place], [facility] 04/18/2020 F25.1 Schizoaffective disorder, depres sive type [place], [facility] 02/06/2020 K43.9 Ventral hernia without obstructi on or gangrene Kalyan Richardson MD Plan of Treatment Future Appointment(s):* 06/27/2020 10:00 am - Kaylie Cornelius [facility] at [facility] * 06/14/2020 11:20 am - Fer Rosario PA-C at [facility] 02/06/2020 - Kalyan Richardson MD* K43.9 Ventral [...]
--- OUTSIDE RECORDS SUMMARY | 2020-06-28 11:16 | CCD | Continuity of Care Document ---
Author Author [facility] Address [address] [place] [address] Phone Support Name Relationship Address Phone Kelli Mcmanus PRS [address] [place] [address] Ina Geronimo PRS Unknown Unavailable Naveed Hannon PRS [address] [place] [address] Skip Rutherford PRS [address] [place] [address] [facility] [address] [place] [address] Allergies, Adverse Reactions, Alerts Allergen Type Severity [...] 1 December 06, 2018 8:14am January 05 19 1:42pm With 1 inch 23g needle. Divalproex [...] Inject 1.5 ml into muscle Q2 weeks. DATE PITTER: [id number] Ofloxacin Discontinued 1 DROPS BOTH EYES Four [...] mg tablet Discontinued 10 MG PO Q24H July 12, 2019 10:15am July 12, 2019 [...] nostril Afluria Qd (3yr up)(PF) (flu vac [id number] 36mos up(PF)) Discontinued 60 MCG IM 1 [...] Inject 1m l into muscle Q2 week DATE PITTER:[id number] Olanzapine Active 10 MG PO Every Evening 30 May 07, 2020 11:17am Sertraline Active 50 MG PO Q24H May 07, 2020 11:19am Take with 100mg tablet. Sertraline Active 100 MG PO Q24H May 07, 2020 11:19am Take with 50mg tablet. Diltiazem Hcl Discontinued 240 MG PO Once [...] Discontinued 20 MG PO Once Per Day March 28, 2012 10:05am June 24, 2012 2:12pm Simvastatin Discontinued 20 MG PO Once Per Day June 24, 2012 2:12pm September 26, 2012 9:15am Metoprolol Tartrate Discontinued 50 MG PO 2 Times Per Day June 24, 2012 2:12pm September 26, 2012 10:31am Sildenafil (Viagra) 50 mg tablet Dis continued 50 MG PO D AILY PRN 6 June 24, 2012 2 :13pm December 20, 2012 9:04am Testosterone Cypionate (Depo-Testosterone) 200 mg/mL o il Discontinued 200 MG IM every 2 weeks August 12, 2012 12:13pm December 12, 2012 10:08am Simvastatin Discontinued 20 MG PO Once Per Day 30 September 26, 2012 9:15am December 20, 2012 8:58am Metoprolol Tartrate Discontinued 50 MG PO 2 Times Per Day 60 September 26, 2012 10 :31am January 06, 2013 9:55am Testosterone Cypionate (Depo-Testosterone) 200 mg/mL o il Discontinued 200 MG IM every 2 weeks 1 December 12, 2012 10:08am July 8:39am Clonazepam [...] Per Day 60 July 08, 2018 8:51am September 28, 2018 9:30am Meloxicam Discontinued 7 .5 MG PO 2 Times Per Day 60 July 08, 2018 8:51am December 06, 2018 8:11am Lisinopril Discontinued 40 MG PO Once Per Day 90 July 08, 2018 8:51am September 28, 2018 9:30am Lisinopril Discontinued 40 MG PO Once Per Day 90 July 08, 2018 8:51am January 27, [...] Discontinued 300 MG PO Once Per Day 30 September 06, 2018 8:28am July 12, 2019 [...] 1ml i nto muscle every 2 weeks. DATE PITTER: [id number] Syringe (Disposable) (Bd Luer-Yanira Tip Co ntrol Syring) 10 mL syringe Discontinued 1 EACH MC every 2 weeks 06 29October 28, 2018 9:51am December 06, 2018 8:15am With 1 inch 23g needle. Testosterone Cypionate Discontinued 200 MG IM every 2 weeks 1 November 10, 2018 11: 41am November 24, 2018 5:32pm Inject 1ml in to muscle every 2 week Testosterone Cypionate Discontinued 200 MG IM every 2 weeks 1 November 24, 2018 5:3 1pm December 06, 2018 8:14am Inject 1ml int o muscle every 2 week Testosterone Cypionate Discontinued 300 MG IM every 2 weeks 1.5 January 05, 2019 1:42pm February 16, 2019 8:01am Inject 1 .5ml into muscle Q2 weeks. DATE PITTER:[id number] Syringe (Disposable) (Bd Luer-Yanira Tip Co ntrol Syring) 10 mL syringe Discontinued 1 EACH MC every 2 weeks 06 29January 05, 2019 1:42pm February 162018 8:01am With 1 inch 23g needle. Lisinopril Discontinued 40 MG PO Once Per Day January 27, 2019 1:55pm January 22, 2020 7:50am Testosterone Cypionate Discontinued 300 MG IM every 2 weeks 1.5 March 16 9 2:21pm April 28, 2019 7:30am Inject 1. 5ml into muscle Q2 weeks. DATE PITTER:[id number] Syringe (Disposable) (Bd Luer-Yanira Tip Co ntrol Syring) 10 mL syringe Discontinued 1 EACH MC every 2 weeks 06 29April 28, 2019 7:29am June 012019 8:37am With 1 inch 23g needle. Testosterone Cypionate Discontinued 300 MG IM every 2 weeks 1.5 April 28 19 7:29am June 27, 2019 8:37am Inject 1.5 ml into muscle Q2 weeks. DATE PITTER: [id number] Syringe (Disposable) (Bd Luer-Yanira Tip Co ntrol Syring) 10 mL syringe Discontinued 1 EACH MC every 2 weeks 06 29June 27, 2019 8:37am October 19, 2019 10:10am With 1 inch 23g needle. Testosterone Cypionate Discontinued 300 MG IM every 2 weeks 1.5 June 27 0 8:37am August 21, 2019 8:55am Inject 1.5ml into muscle Q2 weeks. DATE PITTER: [id number] Testosterone Cypionate Discontinued 300 MG IM every 2 weeks 1.5 August 21, 2019 8:55am October 19, 2019 11:25am Inject 1.5ml into muscle Q2 weeks. DATE PITTER: [id number] Testosterone Cypionate Discontinued 300 MG IM every 2 weeks 1.5 October 19, 2019 11 :24am November 29, 2019 7:35am Inject 1.5ml i nto muscle Q2 weeks. DATE PITTER: [id number] Meloxicam Discontinued 7 .5 MG PO 2 Times Per Day 180 November 29, 2019 7:16am November 29, 2019 7:47am Syringe (Disposable) (Bd Luer-Yanira Tip Co ntrol Syring) 10 mL syringe Discontinued 1 EACH MC every 2 weeks 1 November 29, 2019 7:34am November 29, 2019 7:47am With 1 inch 23g needle. Alprazolam Discontinued 0.5 MG PO daily November 29, 2019 7:34am November 29, 2019 7:45am take 1 tablet once a day. Testosterone Cypionate Discontinued 300 MG IM every 2 weeks 1.5 November 29, 2019 7: 34am November 29, 2019 7:45am Inject 1.5ml i nto muscle Q2 weeks. DATE PITTER: [id number] Testosterone Cypionate Discontinued 300 MG IM every [...] 1 November 29, 2019 7:46am January 23, 2 020 6:27am With 1 inch 23g needle. Alprazolam [...] 1 EACH MC every 2 weeks 1 January 24, 2020 6:27am February 052019 9:06am With [...] MG IM every 2 weeks 1.5 February 05 9:04am February 27, 2020 3:08pm Inject 1 .5ml into muscle Q2 week Citalopram Discontinued 40 MG PO daily 60 February 06, 2020 9:05am March 13, 2020 9:05am Syringe (Disposable) (Bd Luer-Yanira Tip Co ntrol Syring) 10 mL syringe Discontinued 1 EACH MC every 2 weeks 1 February 06, 2020 9:06am April 11, 2020 9:46am With 1 inch 23g needle. Alprazolam Discontinued 0.5 MG PO daily February 21, 2020 7:22am March 18, 2020 2:25pm take 1 tablet once a day. Testosterone Cypionate Discontinued 300 MG IM every 2 weeks 1.5 February 26, 2 020 3:07pm April 04, 2020 10:27am Inject 1. 5ml into muscle Q2 week DATE PITTER:[id number] Prazosin Active 1 MG PO 2 Times Per Day 60 March 18, 2020 2:23pm Alprazolam Discontinued 0.5 MG PO daily March 18, 2020 2:24pm March 18, 2020 2:36pm DATE PITTER: [id number] Alprazolam Discontinued 0.5 MG PO daily March 18, 2020 2:36pm April 11, 2020 9:33am DATE PITTER: [id number] Clonazepam Active 0.5 MG PO 2 Times Per Day 60 April 11, 2020 9:33am Syringe (Disposable) (Bd Luer-Yanira Tip Co ntrol Syring) 10 mL syringe Active 1 EACH MC every 2 weeks 1 30 April 11, 2020 9:46am With 1 inch 23g needle. Testosterone Cypionate Active 200 MG IM every 2 weeks 1 April 11, 2020 9:46am Inject 1ml into muscle Q2 we ek DATE PITTER:[id number] Problems Active Problems Medical Problem Onset Date Status PTSD (post-traumatic stress disorder) Active Anxiety Active Depression Active Paranoia Active Low testosterone in male [...] February 04 0 8:35pm 9.0 10e3/uL 4.45-10.71 [facility], [address] [place], [place] [id number] White Blood Count January 31 0 2:22pm 10.0 10e3/uL 4.45-10.71 [facility], [address] [place] [address] White Blood Count July 31, 2019 11:18am 7.7 10e3/uL 4.45-10.71 [facility], [address] [place] [address] Red Blood Count February 05, 2020 8:35pm 5.38 10e6/uL 4.3-6.1 [facility], [address] [place] [address] Red Blood Count February 01, 2020 2:22pm 5.61 10e6/uL 4.3-6.1 [facility], [address] [place] [address] Red Blood Count July 31, 2019 11:18am 5.92 10e6/uL 4.3-6.1 [facility], [address] [place] [address] Hemoglobin February 05, 2020 8:35pm 16.6 g/dL 13-18 [facility], [address] [place] [address] Hemoglobin February 01, 2020 2:22pm 17.4 g/dL 13-18 [facility], [address] [place] [address] 92275 Hemoglobin July 31, 2019 11:18am 17.9 g/dL [facility], [address] [place] [address] 93353 Hematocrit February 05, 2020 8:35pm 47.1 % 42-52 [facility], [address] [place] [address] 74362 Hematocrit February 01, 2020 2:22pm 48.4 % 4252 [facility], [address] [place] [address] 41300 Hematocrit July 31, 2019 11:18am 51.5 % 42-52 [facility], [address] [place] [address] 90039 Mean Corpuscular Volume January 8:35pm 87.[address] [facility], [address] [place] [address] 32520 Mean Corpuscular Volume January 2:22pm 86.[address] [place] [address] LABORATORY, [address] [place] [address] 44607 Mean Corpuscular Volume July 30 11:18am 87.0 [address] [facility]96 [facility], [address] [place] [address] 58887 Mean Corpuscular Hemoglobin Septembe r 2019 8:35pm 30.9 pg 27-31 [facility], [address] [place] [address] 43025 Mean Corpuscular Hemoglobin Septembe 2019 2:22pm 31.0 pg 27-31 [facility], [address] [place] [address] 49762 Mean Corpuscular Hemoglobin July 11:18am 30.2 pg 27-31 [facility], [address] [place] [address] 74646 Mean Corpuscular Hemoglobin Concent February 05, 2020 8:35pm 35.2 g/dl [facility], [address] [place] [address] 74889 Mean Corpuscular Hemoglobin Concent February 01, 2020 2:22pm 36.0 g/dl 37 [facility], [address] [place] [address] 93376 Mean Corpuscular Hemoglobin Concent July 31, 2019 11:18am 34.8 g/dl 37 [facility], [address] [place] [address] 39051 Red Cell Distribution Width Septembe r 2019 8:35pm 13 % 11-15 [facility], [address] [place] [address] Red Cell Distribution Width 2019 2:22pm 13 % 11-15 [facility], [address] [place] [address] Red Cell Distribution Width July 11:18am 13 % 11-15 [facility], [address] [place] [address] Platelet Count February 05, 2020 8:35pm 246 10e3/ul 130-472 [facility], [address] [place] [address] Platelet Count February 01, 2020 2:22pm 256 10e3/ul 130-472 [facility], [address] [place] [address] Platelet Count July 31, 2019 11:18am 239 10e3/ul 130-472 [facility], [address] [place] [address] Mean Platelet Volume February 05, 2020 8:35pm 9.5 fl 9.1-13.1 [facility], [address] [place] [address] Mean Platelet Volume February 01, 2020 2:22pm 9.5 fl 9.1-13.1 [facility], [address] [place] [address] Mean Platelet Volume July 31, 2019 11:18am 9.9 fl 9.1-13.1 [facility], [address] [place] [address] 69857 Neutrophils (%) (Auto) January 8:35pm 55.4 % [address] [place] [address] LABORATORY, [address] [place] [address] Neutrophils (%) (Auto) January 2:22pm 55.4 % [address] [place] [address] LABORATORY, [address] [place] [address] 49582 Neutrophils (%) (Auto) July 30 11:18am 58.8 % [address] [facility], [address] [place] [address] 49116 Absolute Neutrophil February 04, 020 8:35pm 5.0 # 1.7-7.6 [facility], [address] [place] [address] Absolute Neutrophil January 31, 020 2:22pm 5.6 # 1.7-7.6 [facility], [address] [place] [address] Absolute Neutrophil July 31, 2019 11:18a m 4.5 # 1.7-7.6 [facility], [address] [place] [address] 47867 Lymphocytes (%) (Auto) January 8:35pm 36.9 % 14-46 [facility], [address] [place] [address] 88378 Lymphocytes (%) (Auto) January 2:22pm 35.2 % 14-46 [facility], [address] [place] [address] 75620 Lymphocytes (%) (Auto) July 30 11:18am 32.6 % 14-46 [facility], [address] [place] [address] 70898 Lymphocytes # (Auto) February 05, 2020 8:35pm 3.3 # 0.6-4.6 [facility], [address] [place] [address] 68412 Lymphocytes # (Auto) February 01, 2020 2:22pm 3.5 # 0.6-4.6 [facility], [address] [place] [address] 27459 Lymphocytes # (Auto) July 31, 2019 11:18am 2.5 # 0.6-4.6 [facility], [address] [place] [address] 68909 Monocytes (%) (Auto) February 05, 2020 8:35pm 6.6 % 4-12 [facility], [address] [place] [address] 49003 Monocytes (%) (Auto) February 01, 2020 2:22pm 8.5 % 4-12 [facility], [address] [place] [address] 77048 Monocytes (%) (Auto) July 31, 2019 11:18am 7.8 % 4-12 [facility], [address] [place] [address] 61948 Monocytes # February 05, 2020 8:35pm 0.6 # 0.2-1.2 [facility], [address] [place] [address] 38797 Monocytes # February 01, 2020 2:22pm 0.9 # 0.2-1.2 [facility], [address] [place] [address] 13806 Monocytes # July 31, 2019 11:18am 0.6 # 0.2-1.2 [facility], [address] [place] [address] 29415 Eosinophils (%) (Auto) January 8:35pm 0.6 % 0-7 [facility], [address] [place] [address] 64147 Eosinophils (%) (Auto) January 2:22pm 0.5 % 0-7 [facility], [address] [place] [address] Eosinophils (%) (Auto) July 30 11:18am 0.6 % 0-7 [facility], [address] [place] [address] Absolute Eosinophils (CBC) February 05, 2020 8:35pm 0.1 # 0.0-0.5 [facility], [address] [place] [address] Absolute Eosinophils (CBC) February 01, 2020 2:22pm 0.1 # 0.0-0.5 [facility], [address] [place] [address] Absolute Eosinophils (CBC) July 11:18am 0.1 # 0.0-0.5 [facility], [address] [place] [address] 51193 Basophils (%) (Auto) February 05, 2020 8:35pm 0.3 % 0.4-1.3 [facility], [address] [place] [address] 92728 Basophils (%) (Auto) February 01, 2020 2:22pm 0.3 % 0.4-1.3 [facility], [address] [place] [address] Basophils (%) (Auto) July 31, 2019 11:18am 0.1 % 0.4-1.3 [facility], [address] [place] [address] 90706 Absolute Basophils (CBC) February 042019 8:35pm 0.0 # 0.0-0.2 [facility], [address] [place] [address] 87890 Absolute Basophils (CBC) January 312019 2:22pm 0.0 # 0.0-0.2 [facility], [address] [place] [address] 50736 Absolute Basophils (CBC) July 31, 2019 11:18am 0.0 # 0.0-0.2 [facility], [address] [place] [address] 28303 Immature Granulocyte % (Auto) 2019 8:35pm 0.2 % 0-2 [facility], [address] [place] [address] 62535 Immature Granulocyte % (Auto) 2019 2:22pm 0.1 % 0-2 [facility], [address] [place] [address] 02273 Immature Granulocyte % (Auto) July 31, 2019 11:18am 0.1 % 0-2 [facility], [address] [place] [address] 46798 Absolute Immature Granulocyte (auto February 05, 2020 8:35pm 0.0 # 0-0.1 [facility], [address] [place] [address] Absolute Immature Granulocyte (auto February 01, 2020 2:22pm 0.0 # 0-0.1 [facility], [address] [place] [address] Absolute Immature Granulocyte (auto July 31, 2019 11:18am 0.0 # 0-0.1 [facility], [address] [place] [address] 99779 Add Manual Differential January 8:35pm No [facility], [address] [place] [address] 31307 Add Manual Differential January 2:22pm No [facility], [address] [place] [address] 69482 Add Manual Differential July [address] [facility], [address] [place] [address] 15129 Prothrombin Time February 05, 2020 8:35p m 11.2 SECONDS 9.6-12.3 [facility], [address] [place] [address] 75721 INR International Normalized Ratio S 2019 8:35pm 1.1 0.9-1.1 THE INR IS OPERATIONALLY DEFINED FOR GILMA SH PLASMA FROMPATIENTS STABILIZED ON ORAL ANTICOAGULANTS. ROUTINE ANTICOAGULANT THERAPY 2.0-3.0RECURRENT SYSTEMIC EMBOLISM/HEART VALVE REPLACEMENT 2.5-3.5 [facility], [address] [place] [address] 76573 Partial Thromboplastin Time - Hale S 2019 8:35pm 26.4 SECONDS 22.7-31.6 [facility], [address] [place] [address] 36777 Urine Color July 31, 2019 11:25am Yellow [facility], [address] [place] [address] 74936 Urine Color February 05, 2020 8:15pm Yellow [facility], [address] [place] [address] 58882 Urine Appearance February 05, 2020 8:15p m Clear [address]AR [facility], [address] [place] [address] 12310 Urine Appearance July 31, 2019 11:25am Clear CLEAR [facility], [address] [place] [address] 27410 Urine pH February 05, 2020 8:15pm 7.0 [facility], [address] [place] [address] 96002 Urine pH July 31, 2019 11:25am 8.0 [facility], [address] [place] [address] 52607 Urine Specific [place] January 8:15pm 1.008 [facility], [address] [place] [address] 09367 Urine Specific [place] July 30 11:25am 1.022 [facility], [address] [place] [address] 26296 Urine Leukocyte Esterase July 31, 2019 11:25am Negative NEGATIVE [facility], [address] [place] [address] 35393 Urine Leukocyte Esterase February 042019 8:15pm Negative NEGATIVE [facility], [address] [place] [address] 64525 Urine Nitrite July 31, 2019 11:25am Negative NEGATIVE [facility], [address] [place] [address] 62524 Urine Nitrate February 05, 2020 8:15pm Negative NEGATIVE [facility], [address] [place] [address] 26991 Urine Protein February 05, 2020 8:15pm Negative NEGATIVE [facility], [address] [place] [address] 98439 Urine Protein July 31, 2019 11:25am Negative NEGATIVE [facility], [address] [place] [address] 64766 Urine Glucose February 05, 2020 8:15pm Negative NEGATIVE [facility], [address] [place] [address] 07726 Urine Glucose July 31, 2019 11:25am Negative NEGATIVE [facility], [address] [place] [address] 43667 Urine Ketones February 05, 2020 8:15pm Trace NEGATIVE [facility], [address] [place] [address] 74771 Urine Ketones July 31, 2019 11:25am Negative NEGATIVE [facility], [address] [place] [address] 00857 Urine Urobilinogen February 04 8:15pm 0.2 eu/dl [facility], [address] [place] [address] 93876 Urine Urobilinogen July 31, 2019 11:25am 1 eu/dl [facility], [address] [place] [address] 09478 Urine Bilirubin February 05, 2020 8:15pm Negative NEGATIVE [facility], [address] [place] [address] 95620 Urine Bilirubin July 31, 2019 11:25am Negative NEGATIVE [facility], [address] [place] [address] 03227 Urine Blood July 31, 2019 11:25am Negative NEGATIVE [facility], [address] [place] [address] 37498 Urine Blood February 05, 2020 8:15pm Negative NEGATIVE [facility], [address] [place] [address] 66062 Microscopic Urinalysis Comment July 31, 2019 11:25am No [facility], [address] [place] [address] 37243 Add Urine Microanalysis January 8:15pm No [facility], [address] [place] [address] 41640 Blood Urea Nitrogen February 04, 020 8:35pm 8 mg/dL 02-20 [facility], [address] [place] [address] Blood Urea Nitrogen January 31 020 2:22pm 6 mg/dL 02-20 [facility], [address] [place] [address] 87681 Blood Urea Nitrogen July 31, 2019 11:18a m 17 mg/dL 02-20 [facility], [address] [place] [address] 76514 Sodium Level February 05, 2020 8:35pm 137 mmol/L 132-146 [facility], [address] [place] [address] 48174 Sodium Level February 01, 2020 2:22pm 134 mmol/L 132-146 [facility], [address] [place] [address] 28467 Sodium Level July 31, 2019 11:18am 138 mmol/L 132-146 [facility], [address] [place] [address] 27611 Potassium Level February 05, 2020 8:35pm 3.7 mmol/L 3.5-5.5 [facility], [address] [place] [address] 04239 Potassium Level February 01, 2020 2:22pm 4.0 mmol/L 3.5-5.5 [facility], [address] [place] [address] 14177 Potassium Level July 31, 2019 11:18am 4.5 mmol/L 3.5-5.5 [facility], [address] [place] [address] 74213 Chloride Level February 05, 2020 8:35pm 105 mmol/l 99-109 [facility], [address] [place] [address] 09034 Chloride Level February 01, 2020 2:22pm 101 mmol/l 99-109 [facility], [address] [place] [address] 38388 Chloride Level July 31, 2019 11:18am 105 mmol/l 99-109 [facility], [address] [place] [address] 74254 Carbon Dioxide Level February 05, 2020 8:35pm 25 mmol/l 20-31 [facility], [address] [place] [address] 01951 Carbon Dioxide Level February 01, 2020 2:22pm 28 mmol/l 20-31 [facility], [address] [place] [address] 57860 Carbon Dioxide Level July 31, 2019 11:18am 28 mmol/l 20-31 [facility], [address] [place] [address] 54134 Anion Gap February 05, 2020 8:35pm 11 mmol/l 8-16 [facility], [address] [place] [address] 74102 Anion Gap February 01, 2020 2:22pm 9 mmol/l 8-16 [facility], [address] [place] [address] 71303 Anion Gap July 31, 2019 11:18am 10 mmol/l 8-16 [facility], [address] [place] [address] 06454 Glucose Level February 05, 2020 8:35pm 92 mg/dL 74-106 [facility], [address] [place] [address] 45101 Glucose Level February 01, 2020 2:22pm 92 mg/dL 74-106 [facility], [address] [place] [address] [id number] Glucose Level July 31, 2019 11:18am 97 mg/dL 74-106 [facility], [address] [place] [address] [id number] Creatinine February 05, 2020 8:35pm 0.7 mg/dL 0.5-1.1 [facility], [address] [place] [address] [id number] Creatinine February 01, 2020 2:22pm 0.9 mg/dL 0.5-1.1 [facility], [address] [place] [address] [id number] Creatinine July 31, 2019 11:18am 0.9 mg/dL 0.5-1.1 [facility], [address] [place] [address] [id number] Glomerular Filtration Rate Calc Sept emb2019 8:35pm Greater than 60 ml/min ABOVE 60 [facility], [address] [place] [address] [id number] Glomerular Filtration Rate Calc Sept ember 2019 2:22pm Greater than 60 ml/min ABOVE 60 [facility], [address] [place] [address] [id number] Glomerular Filtration Rate Calc Martin h 2019 11:18am Greater than 60 ml/min ABOVE 60 [facility], [address] [place] [address] [id number] Alanine Aminotransferase (ALT/SGPT) February 05, 2020 8:35pm 36 U/L 10-49 [facility], [address] [place] [address] Alanine Aminotransferase (ALT/SGPT) July 31, 2019 11:18am 44 U/L 10-49 [facility], [address] [place] [address] 62141 Aspartate Amino Transf (AST/SGOT) Se ptember 2019 8:35pm 22 U/L 0-33 [facility], [address] [place] [address] 70491 Aspartate Amino Transf (AST/SGOT) [facility] 2019 11:18am 20 U/L 0-33 [facility], [address] [place] [address] 93118 Alkaline Phosphatase February 05, 2020 8:35pm 55 U/L 45-129 [facility], [address] [place] [address] 54859 Alkaline Phosphatase July 31, 2019 11:18am 63 U/L 45-129 [facility], [address] [place] [address] 59116 Calcium Level February 05, 2020 8:35pm 9.4 mg/dL 8.5-10.1 [facility], [address] [place] [address] 45613 Calcium Level February 01, 2020 2:22pm 9.9 mg/dL 8.5-10.1 [facility], [address] [place] [address] 13287 Calcium Level July 31, 2019 11:18am 9.1 mg/dL 8.5-10.1 [facility], [address] [place] [address] 83745 Total Bilirubin February 05, 2020 8:35pm 0.7 mg/dL 0.3-1.2 [facility], [address] [place] [address] 37070 Total Bilirubin July 31, 2019 11:18am 1.0 mg/dL 0.3-1.2 [facility], [address] [place] [address] 87944 Albumin February 05, 2020 8:35pm 3.9 g/dL 3.2-4.8 [facility], [address] [place] [address] 71532 Albumin July 31, 2019 11:18am 4.1 g/dL 3.2-4.8 [facility], [address] [place] [address] 14437 Serum Total Protein February 04 020 8:35pm 6.6 g/dL 5.7-8.2 [facility], [address] [place] [address] 61019 Serum Total Protein July 31, 2019 11:18a m 7.1 g/dL 5.7-8.2 [facility], [address] [place] [address] 68843 Lactic Acid Level February 04 0 8:35pm 0.8 mmol/L 0.5-2.2 [facility], [address] [place] [address] 09065 Triglycerides Level July 31, 2019 11:18a m 174 mg/dL 0-150 [facility], [address] [place] [address] 80048 Cholesterol Level July 31, 2019 11:18am 212 mg/dL 120-200 [facility], [address] [place], [place] [address] HDL Cholesterol July 31, 2019 11:18am 44 mg/dL HDL Less than 40 mg/dL: Major risk for CHDHDL Greater than 59 mg/dL: Low risk for CHD [facility], [address] [place] [address] LDL Cholesterol, Calculated July 11:18am 134 mg/dL 0-100 [facility], [address] [place] [address] 42859 Free Testosterone (Direct) April 04, 2020 10:50am 218.6 pg/mL The concentration of free testosterone is derivedfrom a mathematical model using total testosteroneby LCMSMS, sex hormone binding globulin and albumin.This test was developed and its analytical performancecharacteristics have been determined by [facility] [place], [place]. It hasnot been cleared or approved by the U.S. Food and DrugAdministration. This assay has been validated pursuantto the CLIA regulations and is used for clinicalpurposes.THIS TEST WAS PERFORMED AT:[facility] [place] [address]LXNNSKDBLAISE FOY MD,PHD [facility] Testosterone Level April 04 0 10:50am 649 ng/dL THIS TEST WAS PERFORMED AT:[facility] [id number] MERATI,MD [facility] Microbiology Results Procedure Source Result Collection Date/Time Result Date/Time Result Comment Performing Site Venous blood No Organi sms Detected February 07, 2020 7:01pm February 09, 2020 11:39am [facility], [address] [place] [address] 10275 Diagnostic Imaging Reports Report Dictated Date/Time Dictated By Status Radiology Report February 05, 2020 11:46pm Preston Lucas MD completed [place] [address] [place] [address] [phone] NAME SEX PT STATUS ACCOUNT NUMBER PIPER AN [facility] ER [id number] ORDERING PHYSICIAN LOCATION MEDICAL RECORD NO. Skip Rutherford MD ER [id number] ATTENDING PHYSICIAN DATE OF DATE OF EXAM/TIME [...] M.D. Reported By Preston Lucas MD on 02/05/202345 Signed By Preston Lucas MD on 02/05/202345 Date Time CC: Kelli Mcmanus; Preston Lucas MD Techn: RAULITO Romero Dt/Tm: Trans by: CHARLIE Prt Dt/Tm: : Total DLP = 1145.00 mGy-cm : Total Radiation Dose = 17.1750 mSv Lifetime Dose: 17.1750 mS v Health Concerns Health Concerns may be documented in an alternate section. Advance Directives Advance Directive Response Recorded Date/Time Advanced Directive No Se ptember 2019 8:13pm Does Patient have a DNR? No May 07, 2020 10:59am Healthcare Proxy No Dece mber 2019 10:59am Living Will No May 07, 2020 10:59am Chief Complaint and Reason for Visit Chief Complaint Medication check Z00.00,I10 Allergies Amb Documentation Snoring, Excessive Daytime Sleepiness, [place], HTN Skin complaints Hernia PRE OP/K42.9 ABD PAIN, BACK PAIN Medication check Medication check R79.89 Anxiety follow-up Depression follow-up Reason for Visit Lump in neck Umbilical hernia Umbilical hernia Depression Anxiety Depression Paranoia PTSD (post-traumatic stress disorder) Anxiety Depression Encounters Encounter Location(s) Ar rival/Admit Date Discharge/Depart Date Provider(s) Departed Physician/Provider Office Visit [facility] July 12, 2019 9:48am July 12, 2019 10:15am Kelli Mcmanus Registered Referred [facility] July 31, 2019 11:05am Kelli Mcmanus Departed Physician/Provider Office Visit [facility] October 19, 2019 8:56am October 19, 2019 9:31am Kelli Mcmanus Registered Outpatient [facility] Dermatology November 13, 2019 2:43pm null Registered Referred [facility] November 16, 2019 6:30pm Kelli Mcmanus Departed Physician/Provider Office Visit [facility] December 20, 2019 9:19am December 20, 2019 9:55am Kelli Mcmanus Departed Physician/Provider Office Visit [facility] General Surgery February 01, 2020 1:31pm February 01, 2020 2:13pm Naveed Hannon MD Registered Referred [facility] February 01, 2020 2:19pm Naveed Hannon MD Departed Emergency [facility] ER February 05, 2020 7:55pm February 06, 2020 12:37am null Registered Referred [facility] February 07, 2020 5:55pm [facility] Departed Physician/Provider Office Visit [facility] March 13, 2020 8:54am March 13, 2020 9:40am Kelli Mcmanus Departed Physician/Provider Office Visit [facility] April 04, 2020 10:04am April 04, 2020 10:33am [facility], [facility] 10:35am Kelli Mcmanus Departed Physician/Provider Office Visit [facility] April 24, 2020 11:39am April 24, 2020 11:50am Kelli Mcmanus Departed Physician/Provider Office Visit [facility] May 07, 2020 10:55am May 07, 2020 11:28am Kelli Mcmanus Recent Diagnosis Onset Date Lump in neck Umbilical hernia Umbilical hernia Depression Anxiety Depression Paranoia PTSD (post-traumatic stress disorder) Anxiety Depression Assessments Diagnosis Onset Date Res olution Status Lump in neck resolved Umbilical hernia resolved Umbilical hernia resolved Depression acute Anxiety acute Depression acute Paranoia acute PTSD (post-traumatic stress disorder) acute Anxiety acute Depression acute Functional Status No Functional Status information available Goals Goals may be documented in an alternate section. Immunizations Immunization Event Date Not Given Reason Dose Number Inventory Control Planner Lot Number Vaccine Information Statement (VIS) Deta il influenza vaccine, inactivated Octob er 2019 [id number] Mental Status Observation Response Kal e Recorded Impairments No impairments or barriers February 05, 2020 8:13pm Medical Equipment No Medical Equipment Information available Insurance Providers Guarantor PIPER AN Address [address] [place] [address] Contact Info. Home Phone: Payer Policy Id Coverage Id Subscriber's Name Subscriber Id Effective Date Expiration Date [employer] [id number] PIPER AN [id number] [employer] [id number] PIPER AN [id number] [facility] [id number] PIPER AN [id number] [employer] [id number] PIPER AN [id number] Self Pay Self N/A [facility] [id number] PIPER AN [id number] Plan of Treatment Anxiety at baseline. Will keep follow up for next month. Paperwork completed. No concerns today. He is doing well on new medications. He was seeing in [place], however, he is unable to be seen [...] with the operation. I will refer to health and wellness coordinator. He is taking 2 allergy medications already [...] for Referral Referral Start Date Provider Provider Conta ct Information Provider Address Juan Garcia MD Email: [email or web address] Work Phone: [phone] [facility] [phone] D22.9 - Melanocytic nevi, unspecified December 20, 2019 Dermatology [facility] [address] [place] [address] Future Procedures Future procedure information is unavailable Future Medications Future medication information is unavailable Patient Instructions DASH Eating Plan (GEN) Hypertension (GEN) Social History Smoking Status Status Date of Observation Former smoker May 07, 2020 10: 59am Observation Status Observation Response Kal e of Response Smoking Status Former smoker May 07, 2020 10:59am Alcohol Use Yes Septembe r 2019 8:21pm [...] 12, 2019 9:52am Respiratory rate 18 /min 12-24 July 12, 2019 9:52am Oxygen saturation by Pulse [...] 19, 2019 10:05am Respiratory rate 18 /min -October 19, 2019 10:05am Oxygen saturation by Pulse [...] 06, 2020 12:56am Respiratory rate 18 /min 12-February 06, 2020 12:56am Oxygen saturation by Pulse [...] 07, 2020 11:00am Respiratory rate 20 /min -May 07, 2020 11:00am Oxygen saturation by Pulse oximetry 98 % 95- 100 May 07, 2020 11:00am BP Systolic 120 mm[Hg] May 07, 2020 11:00am BP Diastolic 60 mm[Hg] May 07, 2020 11:00am
--- OUTSIDE RECORDS SUMMARY | 2020-06-28 11:16 | CCD | Continuity of Care Document ---
Author Author Júnior CORNEL[facility]US [facility] Organization Unknown Address [facility] [place] [address] [place] [address] Phone [phone] Care Team Providers Care Machine Sorter Name Role Phone [facility] AUTM Problems Active Problems Provider Date Essential hypertension [...] . Procedures Date Code Description Status 04/18/2020 00748 Psychiatric Diagnostic Evaluatio n Completed Medical Devices Description No Information Available Encounters Description No Information Available Assessments Date Code Description Provider 05/20/2020 F25.1 Schizoaffective disorder, depres sive type Kaylie Cornelius, [facility] 05/08/2020 F25.1 Schizoaffective disorder, depres sive type Kaylie Cornelius, [facility] 05/06/2020 F25.1 Schizoaffective disorder, depres sive type Eliane Chavira RN 05/03/2020 F25.1 Schizoaffective disorder, depres sive type Kaylie Cornelius, [facility] 04/18/2020 F25.1 Schizoaffective disorder, depres sive type Papa Doshi LCSW 02/06/2020 K43.9 Ventral hernia without obstructi on or gangrene Kalyan Richardson MD Plan of Treatment Future Appointment(s):* 06/13/2020 1:00 pm - Kaylie Cornelius LM at [facility] * 06/06/2020 2:00 pm - JEANETTE Win at [facility] * 06/14/2020 11:20 am - Fer Rosario PA-C at [facility] 02/06/2020 - Kalyan Richardson MD* K43.9 Ventral [...]
--- OUTSIDE RECORDS SUMMARY | 2020-06-28 11:16 | CCD | Continuity of Care Document ---
Author Author Júnior [facility] Organization Unknown Address [facility] [address] [place] [address] Phone [phone] Care Team Providers Care Foundation Digger Name Role Phone [facility] AUTM Problems Active Problems Provider Date Essential [...] BSA (Body Surface Area) 2.32 m2 Results Description No Information Available Procedures Date Code Description Status 04/18/2020 88707 Psychiatric Diagnostic Evaluatio n Completed Medical Devices Description No Information Available Encounters Type Date Location Provider Dx Diagnosis Office Visit 05/06/2020 11:00a [facility] Eliane Chavira RN F25.1 Schizoaffective disorder, depressive type Assessments Date Code Description Provider 05/06/2020 F25.1 Schizoaffective disorder, depres sive type Eliane Chavira RN 05/03/2020 F25.1 Schizoaffective disorder, depres sive type JEANETTE Win 04/18/2020 F25.1 Schizoaffective disorder, depres sive type Papa Tico, [facility] 02/06/2020 K43.9 Ventral hernia without obstructi on or gangrene Kalyan Richardson MD Plan of Treatment Future Appointment(s):* 05/28/2020 9:00 am - JEANETTE Win at [facility] * 06/14/2020 11:20 am - Fer Rosario PA-C at [facility] * 05/20/2020 12:00 pm - JEANETTE Win at [facility] 02/06/2020 - Kalyan Richardson MD* K43.9 Ventral [...]
--- OUTSIDE RECORDS SUMMARY | 2020-06-28 11:16 | CCD | Continuity of Care Document ---
Author Author Júnior [facility]NEL[facility] Organization Unknown Address [facility] [address] [place] [address] Phone [phone] Care Team Providers Care Bookkeeping Manager Name Role Phone [facility] AUTM [phone] Problems Active Problems Provider Date Essential hypertension [...] Note [employer] 13 05/06/2020 Radha bronw Summary Report (Summary) FINAL 1, 2 PDF [...] . Procedures Date Code Description Status 04/18/2020 09431 Psychiatric Diagnostic Evaluatio n Completed Medical Devices Description No Information Available Encounters Description No Information Available Assessments Date Code Description Provider 05/08/2020 F25.1 Schizoaffective disorder, depres sive type Kaylie Cornelius, [facility] 05/06/2020 F25.1 Schizoaffective disorder, depres sive type Eliane Chavira RN 05/03/2020 F25.1 Schizoaffective disorder, depres sive type Kaylie Cornelius, [facility] 04/18/2020 F25.1 Schizoaffective disorder, depres sive type Papa Doshi, [facility] 02/06/2020 K43.9 Ventral hernia without obstructi on or gangrene Kalyan Richardson MD Plan of Treatment Future Appointment(s):* 06/13/2020 1:00 pm - JEANETTE Win at [facility] * 06/06/2020 2:00 pm - JEANETTE Win at [facility] * 05/28/2020 9:00 am - JEANETTE Win at [facility] * 06/14/2020 11:20 am - Fer Rosario PA-C at [facility] 02/06/2020 - Kalyan Richardson MD* K43.9 Ventral [...]
--- OUTSIDE RECORDS SUMMARY | 2020-06-28 11:16 | CCD | Continuity of Care Document ---
Author Author [facility] Address [address] [place] [address] Phone Support Name Relationship Address Phone Kelli Mcmanus PRS [address] [place] [address] Ina Geronimo PRS Unknown Unavailable Naveed Hannon PRS [address] [place] [address] Skip Rutherford PRS [address] [place] [address] Hospital Lab, [facility] [address] [place] [address] Allergies, Adverse Reactions, Alerts Allergen Type Severity [...] Inject 1.5 ml into muscle Q2 weeks. JEWEL SAWYER: [id number] Ofloxacin Discontinued 1 DROPS BOTH EYES Four [...] nostril Afluria Qd (3yr up)(PF) (flu vac [id number] 36mos up(PF)) Discontinued 60 MCG IM 1 [...] Inject 1m l into muscle Q2 week JEWEL SAWYER:[id number] Olanzapine Discontinued 10 MG PO Every Evening May 07, 2020 11:17am June 04, 2020 1:21pm Sertraline Active 50 MG PO Q24H May 07, 2020 11:19am Take with 100mg tablet. Sertraline Active 100 MG PO Q24H May 07, 2020 11:19am Take with 50mg tablet. Testosterone Cypionate Active 200 MG IM every 2 weeks 1 May 07, 2020 1:04pm Inject 1ml into muscle Q2 we ek JEWEL SAWYER:[id number] Olanzapine Active 20 MG PO Every Evening 60 June 04, 2020 1:20pm Diltiazem Hcl Discontinued 240 MG PO Once [...] 200 MG IM every 2 weeks 1 October 28, 2018 9:51 am November 10, 2018 11:41am Inject 1ml i nto muscle every 2 weeks. JEWEL SAWYER: [id number] Syringe (Disposable) (Bd Luer-Yanira Tip Co ntrol [...] Inject 1 .5ml into muscle Q2 weeks. JEWEL SAWYER:[id number] Syringe (Disposable) (Bd Luer-Yanira Tip Co ntrol Syring) 10 mL syringe Discontinued 1 EACH MC every 2 weeks 1 January 05, 2019 1:42pm February 162018 8:01am With 1 inch 23g needle. Lisinopril Discontinued 40 MG PO Once Per Day 90 January 27, 2019 1:55pm January 22, 2020 7:50am Testosterone Cypionate Discontinued 300 MG IM every 2 weeks 1.5 March 16 9 2:21pm April 28, 2019 7:30am Inject 1. 5ml into muscle Q2 weeks. JEWEL SAWYER:[id number] Syringe (Disposable) (Bd Luer-Yanira Tip Co ntrol Syring) 10 mL syringe Discontinued 1 EACH MC every 2 weeks 06 29April 28, 2019 7:29am June 012019 8:37am With 1 inch 23g needle. Testosterone Cypionate Discontinued 300 MG IM every 2 weeks 1.5 April 28 19 7:29am June 27, 2019 8:37am Inject 1.5 ml into muscle Q2 weeks. JEWEL SAWYER: [id number] Syringe (Disposable) (Bd Luer-Yanira Tip Co ntrol Syring) 10 mL syringe Discontinued 1 EACH MC every 2 weeks 06 29June 27, 2019 8:37am October 19, 2019 10:10am With 1 inch 23g needle. Testosterone Cypionate Discontinued 300 MG IM every 2 weeks 1.5 June 27 0 8:37am August 21, 2019 8:55am Inject 1.5ml into muscle Q2 weeks. JEWEL SAWYER: [id number] Testosterone Cypionate Discontinued 300 MG IM every 2 weeks 1.5 August 21, 2019 8:55am October 19, 2019 11:25am Inject 1.5ml into muscle Q2 weeks. JEWEL SAWYER: [id number] Testosterone Cypionate Discontinued 300 MG IM every 2 weeks 1.5 October 19, 2019 11 :24am November 29, 2019 7:35am Inject 1.5ml i nto muscle Q2 weeks. JEWEL SAWYER: [id number] Meloxicam Discontinued 7 .5 MG PO 2 [...] Inject 1.5ml i nto muscle Q2 weeks. JEWEL SAWYER: [id number] Testosterone Cypionate Discontinued 300 MG IM every [...] Inject 1. 5ml into muscle Q2 week JEWEL SAWYER:[id number] Prazosin Active 1 MG PO 2 Times Per Day 60 March 18, 2020 2:23pm Alprazolam Discontinued 0.5 MG PO daily March 18, 2020 2:24pm March 18, 2020 2:36pm JEWEL SAWYER: [id number] Alprazolam Discontinued 0.5 MG PO daily March 18, 2020 2:36pm April 11, 2020 9:33am JEWEL SAWYER: [id number] Clonazepam Discontinued 0.5 MG PO 2 Times Per Day 60 April 11, 2020 9:33am May 07, 2020 1:11pm Syringe (Disposable) (Bd Luer-Yanira Tip Co ntrol Syring) 10 mL syringe Active 1 EACH MC every 2 weeks 1 April 11, 2020 9:46am With 1 inch 23g needle. Testosterone Cypionate Discontinued 200 MG IM every 2 weeks 1 April 11, 2020 9:46am May 07, 2020 1:05pm Inject 1ml into muscle Q2 week JEWEL SAWYER:[id number] Clonazepam Active 0.5 MG PO 2 Times Per Day 60 May 07, 2020 1:11pm Problems Active Problems Medical Problem Onset Date [...] February 04 0 8:35pm 9.0 10e3/uL 4.45-10.71 [facility], [address] [place] [address] 24758 White Blood Count January 31 0 2:22pm 10.0 10e3/uL 4.45-10.71 [facility], [address] [place] [address] 77179 White Blood Count July 31, 2019 11:18am 7.7 10e3/uL 4.45-10.71 [facility], [address] [place] [address] 01692 Red Blood Count February 05, 2020 8:35pm 5.38 10e6/uL 4.3-6.1 [facility], [address] [place] [address] 86217 Red Blood Count February 01, 2020 2:22pm 5.61 10e6/uL 4.3-6.1 [facility], [address] [place] [address] 07472 Red Blood Count July 31, 2019 11:18am 5.92 10e6/uL 4.3-6.1 [facility], [address] [place] [address] 90652 Hemoglobin February 05, 2020 8:35pm 16.6 g/dL [facility], [address] [place] [address] Hemoglobin February 01, 2020 2:22pm 17.4 g/dL [facility], [address] [place] [address] Hemoglobin July 31, 2019 11:18am 17.9 g/dL [facility], [address] [place] [address] Hematocrit February 05, 2020 8:35pm 47.1 % 42-52 [facility], [address] [place] [address] Hematocrit February 01, 2020 2:22pm 48.4 % 42-52 [facility], [address] [place] [address] Hematocrit July 31, 2019 11:18am 51.5 % 42-52 [facility], [address] [place] [address] Mean Corpuscular Volume January 8:35pm 87.5 fl 80-96 [facility], [address] [place] [address] Mean Corpuscular Volume January 2:22pm 86.3 fl 80-96 [facility], [address] [place] [address] 03598 Mean Corpuscular Volume July 30 11:18am 87.0 fl 80-96 [facility], [address] [place] [address] 12370 Mean Corpuscular Hemoglobin Septembe 2019 8:35pm 30.9 pg 27-31 [facility], [address] [place] [address] 71885 Mean Corpuscular Hemoglobin Septembe 2019 2:22pm 31.0 pg 27-31 [facility], [address] [place] [address] 23838 Mean Corpuscular Hemoglobin July 11:18am 30.2 pg 27-31 [facility], [address] [place] [address] 05907 Mean Corpuscular Hemoglobin Concent February 05, 2020 8:35pm 35.2 g/dl 33-37 [facility], [address] [place] [address] 44927 Mean Corpuscular Hemoglobin Concent February 01, 2020 2:22pm 36.0 g/dl [address] [place] [address] LABORATORY, [address] [place] [address] Mean Corpuscular Hemoglobin Concent July 31, 2019 11:18am 34.8 g/dl [address] [facility], [address] [place] [address] Red Cell Distribution Width Septembe r 2019 8:35pm 13 % 1115 [facility], [address] [place] [address] Red Cell Distribution Width Septembe r 2019 2:22pm 13 % 04-14 [facility], [address] [place] [address] Red Cell Distribution Width July 11:18am 13 % [facility], [address] [place] [address] 50834 Platelet Count February 05, 2020 8:35pm 246 10e3/ul 130-472 [facility], [address] [place] [address] Platelet Count February 01, 2020 2:22pm 256 10e3/ul 130-472 [facility], [address] [place] [address] 50903 Platelet Count July 31, 2019 11:18am 239 10e3/ul 130-472 [facility], [address] [place] [address] Mean Platelet Volume February 05, 2020 8:35pm 9.5 fl 9.1-13.1 [facility], [address] [place] [address] Mean Platelet Volume February 01, 2020 2:22pm 9.5 fl 9.1-13.1 [facility], [address] [place] [address] Mean Platelet Volume July 31, 2019 11:18am 9.9 fl 9.1-13.1 [facility], [address] [place] [address] 83088 Neutrophils (%) (Auto) January 8:35pm 55.4 % [address] [place] [address] LABORATORY, [address] [place] [address] Neutrophils (%) (Auto) January 2:22pm 55.4 % [address] [place] [address] LABORATORY, [address] [place] [address] 02884 Neutrophils (%) (Auto) July 30 11:18am 58.8 % 41-77 [facility], [address] [place] [address] 22299 Absolute Neutrophil February 04 020 8:35pm 5.0 # 1.7-7.6 [facility], [address] [place] [address] 33304 Absolute Neutrophil January 31 020 2:22pm 5.6 # 1.7-7.6 [facility], [address] [place] [address] 20543 Absolute Neutrophil July 31, 2019 11:18a m 4.5 # 1.7-7.6 [facility], [address] [place] [address] 61967 Lymphocytes (%) (Auto) January 8:35pm 36.9 % 14-46 [facility], [address] [place] [address] 28147 Lymphocytes (%) (Auto) January 2:22pm 35.2 % 14-46 [facility], [address] [place] [address] 15505 Lymphocytes (%) (Auto) July 30 11:18am 32.6 % 14-46 [facility], [address] [place] [address] 48789 Lymphocytes # (Auto) February 05, 2020 8:35pm 3.3 # 0.6-4.6 [facility], [address] [place] [address] 89947 Lymphocytes # (Auto) February 01, 2020 2:22pm 3.5 # 0.6-4.6 [facility], [address] [place] [address] 54118 Lymphocytes # (Auto) July 31, 2019 11:18am 2.5 # 0.6-4.6 [facility], [address] [place] [address] 52994 Monocytes (%) (Auto) February 05, 2020 8:35pm 6.6 % 4-12 [facility], [address] [place] [address] 01186 Monocytes (%) (Auto) February 01, 2020 2:22pm 8.5 % 4-12 [facility], [address] [place] [address] 82641 Monocytes (%) (Auto) July 31, 2019 11:18am 7.8 % 4-12 [facility], [address] [place] [address] 93481 Monocytes # February 05, 2020 8:35pm 0.6 # 0.2-1.2 [facility], [address] [place] [address] 82945 Monocytes # February 01, 2020 2:22pm 0.9 # 0.2-1.2 [facility], [address] [place] [address] 10524 Monocytes # July 31, 2019 11:18am 0.6 # 0.2-1.2 [facility], [address] [place] [address] 21216 Eosinophils (%) (Auto) January 8:35pm 0.6 % 0-7 [facility], [address] [place] [address] 50570 Eosinophils (%) (Auto) January 2:22pm 0.5 % 0-7 [facility], [address] [place] [address] 76238 Eosinophils (%) (Auto) July 30 11:18am 0.6 % 0-7 [facility], [address] [place] [address] Absolute Eosinophils (CBC) February 05, 2020 8:35pm 0.1 # 0.0-0.5 [facility], [address] [place] [address] Absolute Eosinophils (CBC) February 01, 2020 2:22pm 0.1 # 0.0-0.5 [facility], [address] [place] [address] Absolute Eosinophils (CBC) July 11:18am 0.1 # 0.0-0.5 [facility], [address] [place] [address] 00512 Basophils (%) (Auto) February 05, 2020 8:35pm 0.3 % 0.4-1.3 [facility], [address] [place] [address] 73636 Basophils (%) (Auto) February 01, 2020 2:22pm 0.3 % 0.4-1.3 [facility], [address] [place] [address] 27733 Basophils (%) (Auto) July 31, 2019 11:18am 0.1 % 0.4-1.3 [facility], [address] [place] [address] 23423 Absolute Basophils (CBC) February 042019 8:35pm 0.0 # 0.0-0.2 [facility], [address] [place] [address] 85642 Absolute Basophils (CBC) January 312019 2:22pm 0.0 # 0.0-0.2 [facility], [address] [place] [address] 82155 Absolute Basophils (CBC) July 31, 2019 11:18am 0.0 # 0.0-0.2 [facility], [address] [place] [address] 15221 Immature Granulocyte % (Auto) 2019 8:35pm 0.2 % 0-2 [facility], [address] [place] [address] 78977 Immature Granulocyte % (Auto) 2019 2:22pm 0.1 % 0-2 [facility], [address] [place] [address] 10857 Immature Granulocyte % (Auto) July 31, 2019 11:18am 0.1 % 0-2 [facility], [address] [place] [address] 49067 Absolute Immature Granulocyte (auto February 05, 2020 8:35pm 0.0 # 0-0.1 [facility], [address] [place] [address] 17672 Absolute Immature Granulocyte (auto February 01, 2020 2:22pm 0.0 # 0-0.1 [facility], [address] [place] [address] 94700 Absolute Immature Granulocyte (auto July 31, 2019 11:18am 0.0 # 0-0.1 [facility], [address] [place] [address] 15054 Add Manual Differential January h2019 8:35pm No [facility], [address] [place] [address] 53020 Add Manual Differential January d2019 2:22pm No [facility], [address] [place] [address] 83389 Add Manual Differential July 30 11:18am No [facility], [address] [place] [address] 26591 Prothrombin Time February 05, 2020 8:35p m 11.2 SECONDS 9.6-12.3 [facility], [address] [place] [address] 09992 INR International Normalized Ratio ep2019 8:35pm 1.1 0.9-1.1 THE INR IS OPERATIONALLY DEFINED FOR GILMA SH PLASMA FROMPATIENTS STABILIZED ON ORAL ANTICOAGULANTS. ROUTINE ANTICOAGULANT THERAPY 2.0-3.0RECURRENT SYSTEMIC EMBOLISM/HEART VALVE REPLACEMENT 2.5-3.5 [facility], [address] [place] [address] 92796 Partial Thromboplastin Time - Mcclain S ep2019 8:35pm 26.4 SECONDS 22.7-31.6 [facility], [address] [place] [address] 24698 Urine Color July 31, 2019 11:25am Yellow [facility], [address] [place] [address] 57703 Urine Color February 05, 2020 8:15pm Yellow [facility], [address] [place] [address] 08237 Urine Appearance February 05, 2020 8:15p m Clear CLEAR [facility], [address] [place] [address] 31514 Urine Appearance July 31, 2019 11:25am Clear CLEAR [facility], [address] [place] [address] 97158 Urine pH February 05, 2020 8:15pm 7.0 [facility], [address] [place] [address] 95006 Urine pH July 31, 2019 11:25am 8.0 [facility], [address] [place] [address] 56411 Urine Specific [place] January 8:15pm 1.008 [facility], [address] [place] [address] 72936 Urine Specific [place] July 30 11:25am 1.022 [facility], [address] [place] [address] 62966 Urine Leukocyte Esterase July 31, 2019 11:25am Negative NEGATIVE [facility], [address] [place] [address] 26167 Urine Leukocyte Esterase February 042019 8:15pm Negative NEGATIVE [facility], [address] [place] [address] 76088 Urine Nitrite July 31, 2019 11:25am Negative NEGATIVE [facility], [address] [place] [address] 37609 Urine Nitrate February 05, 2020 8:15pm Negative NEGATIVE [facility], [address] [place] [address] 89768 Urine Protein February 05, 2020 8:15pm Negative NEGATIVE [facility], [address] [place] [address] 49060 Urine Protein July 31, 2019 11:25am Negative NEGATIVE [facility], [address] [place] [address] 29426 Urine Glucose February 05, 2020 8:15pm Negative NEGATIVE [facility], [address] [place] [address] 55799 Urine Glucose July 31, 2019 11:25am Negative NEGATIVE [facility], [address] [place] [address] 96502 Urine Ketones February 05, 2020 8:15pm Trace NEGATIVE [facility], [address] [place] [address] 85118 Urine Ketones July 31, 2019 11:25am Negative NEGATIVE [facility], [address] [place] [address] 45688 Urine Urobilinogen February 04 8:15pm 0.2 eu/dl [facility], [address] [place] [address] 77999 Urine Urobilinogen July 31, 2019 11:25am 1 eu/dl [facility], [address] [place] [address] 41902 Urine Bilirubin February 05, 2020 8:15pm Negative NEGATIVE [facility], [address] [place] [address] 73591 Urine Bilirubin July 31, 2019 11:25am Negative NEGATIVE [facility], [address] [place] [address] 08415 Urine Blood July 31, 2019 11:25am Negative NEGATIVE [facility], [address] [place] [address] 67491 Urine Blood February 05, 2020 8:15pm Negative NEGATIVE [facility], [address] [place] [address] 13534 Microscopic Urinalysis Comment July 31, 2019 11:25am No [facility], [address] [place] [address] 98516 Add Urine Microanalysis January 8:15pm No [facility], [address] [place] [address] 40219 Blood Urea Nitrogen February 04 020 8:35pm 8 mg/dL 02-20 [facility], [address] [place] [address] 37738 Blood Urea Nitrogen January 31 020 2:22pm 6 mg/dL 02-20 [facility], [address] [place] [address] 04936 Blood Urea Nitrogen July 31, 2019 11:18a m 17 mg/dL 02-20 [facility], [address] [place] [address] 75352 Sodium Level February 05, 2020 8:35pm 137 mmol/L 132-146 [facility], [address] [place] [address] 60120 Sodium Level February 01, 2020 2:22pm 134 mmol/L 132-146 [facility], [address] [place] [address] 50179 Sodium Level July 31, 2019 11:18am 138 mmol/L 132-146 [facility], [address] [place] [address] 61897 Potassium Level February 05, 2020 8:35pm 3.7 mmol/L 3.5-5.5 [facility], [address] [place] [address] 62633 Potassium Level February 01, 2020 2:22pm 4.0 mmol/L 3.5-5.5 [facility], [address] [place] [address] 23583 Potassium Level July 31, 2019 11:18am 4.5 mmol/L 3.5-5.5 [facility], [address] [place] [address] 46545 Chloride Level February 05, 2020 8:35pm 105 mmol/l 99-109 [facility], [address] [place] [address] 29727 Chloride Level February 01, 2020 2:22pm 101 mmol/l 99-109 [facility], [address] [place] [address] 53388 Chloride Level July 31, 2019 11:18am 105 mmol/l 99-109 [facility], [address] [place] [address] 19194 Carbon Dioxide Level February 05, 2020 8:35pm 25 mmol/l 20-31 [facility], [address] [place] [address] 09496 Carbon Dioxide Level February 01, 2020 2:22pm 28 mmol/l 20-31 [facility], [address] [place] [address] 52564 Carbon Dioxide Level July 31, 2019 11:18am 28 mmol/l 20-31 [facility], [address] [place] [address] 51717 Anion Gap February 05, 2020 8:35pm 11 mmol/l 8-16 [facility], [address] [place] [address] 48320 Anion Gap February 01, 2020 2:22pm 9 mmol/l 8-16 [facility], [address] [place] [address] 94924 Anion Gap July 31, 2019 11:18am 10 mmol/l 8-16 [facility], [address] [place] [address] 85251 Glucose Level February 05, 2020 8:35pm 92 mg/dL 74-106 [facility], [address] [place] [address] 83504 Glucose Level February 01, 2020 2:22pm 92 mg/dL 74-106 [facility], [address] [place] [address] 61688 Glucose Level July 31, 2019 11:18am 97 mg/dL 74-106 [facility], [address] [place] [address] 23765 Creatinine February 05, 2020 8:35pm 0.7 mg/dL 0.5-1.1 [facility], [address] [place] [address] 74212 Creatinine February 01, 2020 2:22pm 0.9 mg/dL 0.5-1.1 [facility], [address] [place] [address] 17122 Creatinine July 31, 2019 11:18am 0.9 mg/dL 0.5-1.1 [facility], [address] [place] [address] 03435 Glomerular Filtration Rate Calc Sept 2019 8:35pm Greater than 60 ml/min ABOVE 60 [facility], [address] [place] [address] 42499 Glomerular Filtration Rate Calc Sept 2019 2:22pm Greater than 60 ml/min ABOVE 60 [facility], [address] [place] [address] 95689 Glomerular Filtration Rate Calc Martin 2019 11:18am Greater than 60 ml/min ABOVE 60 [facility], [address] [place] [address] 82929 Alanine Aminotransferase (ALT/SGPT) February 05, 2020 8:35pm 36 U/L 10-49 [facility], [address] [place] [address] Alanine Aminotransferase (ALT/SGPT) July 31, 2019 11:18am 44 U/L 10-49 [facility], [address] [place] [address] [id number] Aspartate Amino Transf (AST/SGOT) [facility] 2019 8:35pm 22 U/L 0-33 [facility], [address] [place] [address] 16176 Aspartate Amino Transf (AST/SGOT) [facility] 2019 11:18am 20 U/L 0-33 [facility], [address] [place] [address] [id number] Alkaline Phosphatase February 05, 2020 8:35pm 55 U/L 45-129 [facility], [address] [place] [address] 89507 Alkaline Phosphatase July 31, 2019 11:18am 63 U/L 45-129 [facility], [address] [place] [address] 28175 Calcium Level February 05, 2020 8:35pm 9.4 mg/dL 8.5-10.1 [facility], [address] [place] [address] 46299 Calcium Level February 01, 2020 2:22pm 9.9 mg/dL 8.5-10.1 [facility], [address] [place] [address] 16404 Calcium Level July 31, 2019 11:18am 9.1 mg/dL 8.5-10.1 [facility], [address] [place] [address] 46544 Total Bilirubin February 05, 2020 8:35pm 0.7 mg/dL 0.3-1.2 [facility], [address] [place] [address] 98516 Total Bilirubin July 31, 2019 11:18am 1.0 mg/dL 0.3-1.2 [facility], [address] [place] [address] 08156 Albumin February 05, 2020 8:35pm 3.9 g/dL 3.2-4.8 [facility], [address] [place] [address] 73223 Albumin July 31, 2019 11:18am 4.1 g/dL 3.2-4.8 [facility], [address] [place] [address] 45304 Serum Total Protein February 04 020 8:35pm 6.6 g/dL 5.7-8.2 [facility], [address] [place] [address] 12288 Serum Total Protein July 31, 2019 11:18a m 7.1 g/dL 5.7-8.2 [facility], [address] [place] [address] 29967 Lactic Acid Level February 04 0 8:35pm 0.8 mmol/L 0.5-2.2 [facility], [address] [place] [address] 47862 Triglycerides Level July 31, 2019 11:18a m 174 mg/dL 0-150 [facility], [address] [place] [address] 78511 Cholesterol Level July 31, 2019 11:18am 212 mg/dL 120-200 [facility], [address] [place] [address] 91791 HDL Cholesterol July 31, 2019 11:18am 44 mg/dL HDL Less than 40 mg/dL: Major risk for CHDHDL Greater than 59 mg/dL: Low risk for CHD [facility], [address] [place] [address] 85066 LDL Cholesterol, Calculated July 11:18am 134 mg/dL 0-100 [facility], [address] [place] [address] 97554 Free Testosterone (Direct) April 04, 2020 10:50am 218.6 pg/mL The concentration of free testosterone is derivedfrom a mathematical model using total testosteroneby LCMSMS, sex hormone binding globulin and albumin.This test was developed and its analytical performancecharacteristics have been determined by [facility] [place], [place]. It hasnot been cleared or approved by the U.S. Food and DrugAdministration. This assay has been validated pursuantto the CLIA regulations and is used for clinicalpurposes.THIS TEST WAS PERFORMED AT:[facility] [place] [id number] FOY MD,PHD [facility] Testosterone Level April 04 10:50am 649 ng/dL THIS TEST WAS PERFORMED AT:[id number] [id number] MERATI,MD Adenyo Microbiology Results Procedure Source Result Collection Date/Time Result Date/Time Result Comment Performing Site Venous blood No Organi sms Detected February 07, 2020 7:01pm February 09, 2020 11:39am [facility], [address] [place] [address] Diagnostic Imaging Reports Report Dictated Date/Time Dictated By Status Radiology Report February 05, 2020 11:46pm Preston Lucas MD completed [place] [id number] [phone] NAME SEX PT STATUS ACCOUNT NUMBER PIPER AN [facility] ER [id number] ORDERING PHYSICIAN LOCATION MEDICAL RECORD NO. Skip Rutherford MD ER [id number] ATTENDING PHYSICIAN DATE OF DATE OF EXAM/TIME [...] Reported By Preston Lucas MD on 02/05/20 2346 Signed By Preston Lucas MD on 02/05/20 2346 Date Time CC: Kelli Lucas MD Techn: RAULITO Trans Dt/Tm: Trans by: DT Prt Dt/Tm: : Total DLP = 1145.00 mGy-cm : Total Radiation Dose = 17.1750 mSv Lifetime Dose: 17.1750 mS v Health Concerns Health Concerns may be documented in an alternate section. Advance Directives Advance Directive Response Recorded Date/Time Advanced Directive No Se ptember 2019 8:13pm Does Patient have a DNR? No February 05, 2020 8:13pm Healthcare Proxy No Sept ember 2019 8:13pm Living Will No February 01, 2020 1:41pm Chief Complaint and Reason for Visit Chief Complaint Medication check Z00.00,I10 Allergies Amb Documentation Snoring, Excessive Daytime Sleepiness, [place], HTN Skin complaints Hernia PRE OP/K42.9 ABD PAIN, BACK PAIN Medication check Medication check R79.89 Anxiety follow-up Depression follow-up Depression follow-up Reason for Visit Lump in neck Umbilical hernia Umbilical hernia Depression Anxiety Depression Paranoia PTSD (post-traumatic stress disorder) Anxiety Depression Depression Encounters Encounter Location(s) Ar rival/Admit Date Discharge/Depart Date Provider(s) Departed Physician/Provider Office Visit [facility] July 12, 2019 9:48am July 12, 2019 10:15am Kelli Mcmanus Registered Referred [facility] July 31, 2019 11:05am Kelli Mcmanus Departed Physician/Provider Office Visit [facility] October 19, 2019 8:56am October 19, 2019 9:31am Kelli Mcmanus Registered Outpatient [facility] Dermatology November 13, 2019 2:43pm null Registered Referred [facility] November 16, 2019 6:30pm Kelli Mcmanus Departed Physician/Provider Office Visit [facility] December 20, 2019 9:19am December 20, 2019 9:55am Kelli Mcmanus Departed Physician/Provider Office Visit [facility] General Surgery February 01, 2020 1:31pm February 01, 2020 2:13pm Naveed Hannon MD Registered Referred [facility] February 01, 2020 2:19pm Naveed Hannon MD Departed Emergency [facility] February 05, 2020 7:55pm February 06, 2020 12:37am null Registered Referred [facility] February 07, 2020 5:55pm [facility] Departed Physician/Provider Office Visit [facility] March 13, 2020 8:54am March 13, 2020 9:40am Kelli Mcmanus Departed Physician/Provider Office Visit [facility] April 04, 2020 10:04am April 04, 2020 10:33am Kelli Mcmanus Registered Referred [facility] April 04, 2020 10:35am Kelli Mcmanus Departed Physician/Provider Office Visit [facility] April 24, 2020 11:39am April 24, 2020 11:50am Kelli Mcmauns Departed Physician/Provider Office Visit [facility] May 07, 2020 10:55am May 07, 2020 11:28am Kelli Mcmanus Departed Physician/Provider Office Visit [facility] June 04, 2020 1:14pm June 04, 2020 1:47pm Kelli valladares Recent Diagnosis Onset Date Lump in neck Umbilical hernia Umbilical hernia Depression Anxiety Depression Paranoia PTSD (post-traumatic stress disorder) Anxiety Depression Depression Assessments Diagnosis Onset Date Res olution Status Lump in neck resolved Umbilical hernia resolved Umbilical hernia resolved Depression acute Anxiety acute Depression acute Paranoia acute PTSD (post-traumatic stress disorder) acute Anxiety acute Depression acute Depression acute Functional Status No Functional Status information available Goals Goals may be documented in an alternate section. Immunizations Immunization Event Date Not Given Reason Dose Number Hat Block Bench Hand Lot Number Vaccine Information Statement (VIS) Deta il influenza vaccine, inactivated Octob er 2019 [id number] Mental Status Observation Response Kal e Recorded Impairments No impairments or barriers February 05, 2020 8:13pm Medical Equipment No Medical Equipment Information available Insurance Providers Guarantor PIPER AN Address [address] [place] [address] [address] [facility] [address] [place] [address] Contact Info. Home Phone: Payer Policy Id Coverage Id Subscriber's Name Subscriber Id Effective Date Expiration Date [employer] [id number] PIPER AN [id number] [employer] [id number] PIPER AN [id number] [facility] [id number] PIPER AN [id number] [employer] [id number] PIPER AN [id number] Self Pay Self N/A [facility] [id number] PIPER AN [id number] Plan of Treatment Anxiety at baseline. Will [...] on new medications. He was seeing in [place], however, he is unable to be seen [...] with the operation. 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 He is taking 2 allergy medications already [...] Provider Address Juan Garcia MD Email: [email or web address] .[employer] Work Phone: [phone] [facility] [phone] Future Procedures Future procedure information is unavailable Future Medications Future medication information is unavailable Patient Instructions DASH Eating Plan (GEN) Hypertension (GEN) Social History Smoking Status Status Date of Observation Current every day smoker February 042019 9:21pm Observation Status Observation Response Kal e of Response Smoking Status Current every day smoker February 05, 2020 8:21pm Alcohol Use Yes e r 2019 8:21pm Substance Use Yes adán 2019 8:21pm When did patient quit smoking? 4 yrs ago July 08, 2018 9:29am Assigned Sex Male Vital Signs Vital Reading Result Ref erence Range Collection Date/Time Height 70 [in_i] July 12, 2019 9:52am Weight 256.00 [lb_av] July 12, 2019 9:52am Heart Rate 71 /min 60-100 July 12, 2019 9:52am Respiratory rate 18 /min 12-July 12, 2019 9:52am Oxygen saturation by Pulse [...] 20, 2019 10:29am Respiratory rate 18 /min 12-24 December 20, 2019 10:29am Oxygen saturation by Pulse [...] 24, 2020 11:43am Heart Rate 74 /min -April 24, 2020 11:43am Respiratory rate 22 /min [...]
--- OUTSIDE RECORDS SUMMARY | 2020-06-28 11:16 | CCD | Continuity of Care Document ---
Author Author Júnior ROSARIO PA-C Organization Unknown Address [facility] [address] [place] [address] Phone [phone] Care Team Providers Care Sap Senior Developer Name Role Phone [facility] AUTM Problems Active Problems Provider Date [...] . Procedures Date Code Description Status 04/18/2020 44739 Psychiatric Diagnostic Evaluatio n Completed Medical Devices Description No Information Available Encounters Type Date Location Provider Dx Diagnosis Office Visit 05/06/2020 11[facility] Eliane Chavira RN F25.1 Schizoaffective disorder, depressive type Assessments Date Code Description Provider 05/08/2020 F25.1 Schizoaffective disorder, depres sive type Kaylie Cornelius [facility] 05/06/2020 F25.1 Schizoaffective disorder, depres sive type Eliane Chavira RN 05/03/2020 F25.1 Schizoaffective disorder, depres sive type Kaylie Cornelius [facility] 04/18/2020 F25.1 Schizoaffective disorder, depres sive type Papa Doshi [facility] 02/06/2020 K43.9 Ventral hernia without obstructi on or gangrene Kalyan Richardson MD Plan of Treatment Future Appointment(s):* 05/28/2020 9:00 am - JEANETTE Win at [facility] * 06/14/2020 11:20 am - Fer Rosario PA-C at [facility] * 05/20/2020 12:00 pm - JEANETTE Win at [facility] 02/06/2020 - Kalyan Richardson MD* K43.9 [...]
--- OUTSIDE RECORDS SUMMARY | 2020-06-28 11:16 | CCD | Continuity of Care Document ---
Author Author Júnior CHAVIRA RN Organization Unknown Address [address] [place] [address] Phone [phone] Care Team Providers Care Transfer Professor Name Role Phone [facility] AUTM Problems Active Problems Provider Date [...] Available Procedures Date Code Description Status 04/18/2020 26948 Psychiatric Diagnostic Evaluatio n Completed Medical Devices Description No Information Available Encounters Type Date Location Provider Dx Diagnosis Office Visit 05/06/2020 11:00a [facility] Eliane Chavira RN F25.1 Schizoaffective disorder, depressive type Assessments Date Code Description Provider 05/06/2020 F25.1 Schizoaffective disorder, depres sive type Eliane Chavira RN 05/03/2020 F25.1 Schizoaffective disorder, depres sive type JEANETTE Win 04/18/2020 F25.1 Schizoaffective disorder, depres sive type Papa Doshi, [facility] 02/06/2020 K43.9 Ventral hernia without obstructi on or gangrene Kalyan Richardson MD Plan of Treatment Future Appointment(s):* 06/14/2020 11:20 am - Fer Rosario PA-C at [facility] * 05/20/2020 12:00 pm - JEANETTE Win at [facility] * 05/08/2020 8:00 am - JEANETTE Win at [facility] 02/06/2020 - Kalyan Richardson MD* K43.9 [...]
--- OUTSIDE RECORDS SUMMARY | 2020-06-28 11:17 | CCD | Continuity of Care Document ---
Author Author [facility] Address [address] [place] [address] Phone Support Name Relationship Address Phone Kelli Mcmanus PRS [address] [place] [address] Ina Geronimo PRS Unknown Unavailable Naveed Hannon PRS [address] [place] [address] Skip Rutherford PRS [address] [place] [address] [facility] [address] [place] [address] Allergies, Adverse Reactions, Alerts Allergen Type Severity [...] Inject 1.5 ml into muscle Q2 weeks. CASKET COVERER: [id number] Ofloxacin Discontinued 1 DROPS BOTH EYES Four [...] nostril Afluria Qd (3yr up)(PF) (flu vac [id number] 36mos up(PF)) Discontinued 60 MCG IM 1 [...] in am and 1000mg at hs Olanzapine Active 20 MG PO Every Evening 60 30 March 13, 2020 9:49am Prazosin Discontinued 1 MG PO daily 30 March 13, 2020 9:50am March 18, 2020 2:25pm Sertraline Discontinued 50 MG PO Q24H March 13, 2020 9:50am April 04, 2020 10:24am Sertraline Active 100 MG PO Q24H April 04, 2020 10:24am Testosterone Cypionate Discontinued 200 MG IM every 2 weeks 06 13April 04, 2020 10:27am April 11, 2020 9:46am Inject 1m l into muscle Q2 week CASKET COVERER:[id number] Diltiazem Hcl Discontinued 240 MG PO Once [...] Discontinued 20 MG PO Once Per Day December 20, 2012 8:58am January 01, 2014 9:53am Sildenafil (Viagra) 100 mg tablet Di scontinued 100 MG PO DAILY PRN December 20, 2012 9:04 am February 05, [...] 0.5 MG PO Three times a day September 06, 2018 8:28am February 16, 2019 [...] 1ml i nto muscle every 2 weeks. CASKET COVERER: [id number] Syringe (Disposable) (Bd Luer-Yanira Tip Co ntrol [...] Inject 1 .5ml into muscle Q2 weeks. CASKET COVERER:[id number] Syringe (Disposable) (Bd Luer-Yanira Tip Co ntrol [...] Inject 1. 5ml into muscle Q2 weeks. CASKET COVERER:[id number] Syringe (Disposable) (Bd Luer-Yanira Tip Co ntrol Syring) 10 mL syringe Discontinued 1 EACH MC every 2 weeks 06 29April 28, 2019 7:29am June 012019 8:37am With 1 inch 23g needle. Testosterone Cypionate Discontinued 300 MG IM every 2 weeks 1.5 April 28 19 7:29am June 27, 2019 8:37am Inject 1.5 ml into muscle Q2 weeks. CASKET COVERER: [id number] Syringe (Disposable) (Bd Luer-Yanira Tip Co ntrol Syring) 10 mL syringe Discontinued 1 EACH MC every 2 weeks 06 29June 27, 2019 8:37am October 19, 2019 10:10am With 1 inch 23g needle. Testosterone Cypionate Discontinued 300 MG IM every 2 weeks 1.5 14 June 27 0 8:37am August 21, 2019 8:55am Inject 1.5ml into muscle Q2 weeks. CASKET COVERER: [id number] Testosterone Cypionate Discontinued 300 MG IM every 2 weeks 1.5 August 21, 2019 8:55am October 19, 2019 11:25am Inject 1.5ml into muscle Q2 weeks. CASKET COVERER: [id number] Testosterone Cypionate Discontinued 300 MG IM every 2 weeks 1.5 14 October 19, 2019 11 :24am November 29, 2019 7:35am Inject 1.5ml i nto muscle Q2 weeks. CASKET COVERER: [id number] Meloxicam Discontinued 7 .5 MG PO 2 [...] 1.5 November 29, 2019 7: 34am November 28, 2019 7:45am Inject 1.5ml i nto muscle Q2 weeks. CASKET COVERER: [id number] Testosterone Cypionate Discontinued 300 MG IM every [...] MG IM every 2 weeks 1.5 14 January 24, 2020 6:27am February 05, 2020 [...] Inject 1. 5ml into muscle Q2 week CASKET COVERER:[id number] Prazosin Active 1 MG PO 2 Times Per Day 60 March 18, 2020 2:23pm Alprazolam Discontinued 0.5 MG PO daily March 18, 2020 2:24pm March 18, 2020 2:36pm CASKET COVERER: [id number] Alprazolam Discontinued 0.5 MG PO daily March 18, 2020 2:36pm April 11, 2020 9:33am CASKET COVERER: [id number] Clonazepam Active 0.5 MG PO 2 Times Per Day April 11, 2020 9:33am Syringe (Disposable) (Bd Luer-Yanira Tip Co ntrol Syring) 10 mL syringe Active 1 EACH MC every 2 weeks 06 29April 11, 2020 9:46am With 1 inch 23g needle. Testosterone Cypionate Active 200 MG IM every 2 weeks 1 April 11, 2020 9:46am Inject 1ml into muscle Q2 we ek CASKET COVERER:[id number] Problems Active Problems Medical Problem Onset Date [...] February 04 0 8:35pm 9.0 10e3/uL 4.45-10.71 [facility], [address] [place] [address] White Blood Count January 31 0 2:22pm 10.0 10e3/uL 4.45-10.71 [facility], [address] [place], [place] [id number] White Blood Count July 31, 2019 11:18am 7.7 10e3/uL 4.45-10.71 [facility], [address] [place], [place] [id number] Red Blood Count February 05, 2020 8:35pm 5.38 10e6/uL 4.3-6.1 [facility], [address] [place] [address] Red Blood Count February 01, 2020 2:22pm 5.61 10e6/uL 4.3-6.1 [facility], [address] [place] [address] Red Blood Count July 31, 2019 11:18am 5.92 10e6/uL 4.3-6.1 [facility], [address] [place] [address] 90106 Hemoglobin February 05, 2020 8:35pm 16.6 g/dL 18 [facility], [address] [place] [address] Hemoglobin February 01, 2020 2:22pm 17.4 g/dL 18 [facility], [address] [place] [address] Hemoglobin July 31, 2019 11:18am 17.9 g/dL [facility], [address] [place] [address] Hematocrit February 05, 2020 8:35pm 47.1 % 42-52 [facility], [address] [place] [address] Hematocrit February 01, 2020 2:22pm 48.4 % 42-52 [facility], [address] [place] [address] 29564 Hematocrit July 31, 2019 11:18am 51.5 % 42-52 [facility], [address] [place] [address] 84891 Mean Corpuscular Volume January 8:35pm 87.[address] [place] [address] LABORATORY, [address] [place] [address] 42947 Mean Corpuscular Volume January 2:22pm 86.[address] [place] [address] LABORATORY, [address] [place] [address] 80464 Mean Corpuscular Volume July 30 11:18am 87.[address] [place] [address] LABORATORY, [address] [place] [address] 63484 Mean Corpuscular Hemoglobin Septembe r 2019 8:35pm 30.9 pg 27-31 [facility], [address] [place] [address] 09856 Mean Corpuscular Hemoglobin Septembe r 2019 2:22pm 31.0 pg 27-31 [facility], [address] [place] [address] 62647 Mean Corpuscular Hemoglobin July 11:18am 30.2 pg 27-31 [facility], [address] [place] [address] 05250 Mean Corpuscular Hemoglobin Concent February 05, 2020 8:35pm 35.2 g/dl 37 [facility], [address] [place] [address] 36493 Mean Corpuscular Hemoglobin Concent February 01, 2020 2:22pm 36.0 g/dl 37 [facility], [address] [place] [address] 71934 Mean Corpuscular Hemoglobin Concent July 31, 2019 11:18am 34.8 g/dl 37 [facility], [address] [place] [address] 60139 Red Cell Distribution Width Septembe r 2019 8:35pm 13 % 11-15 [facility], [address] [place] [address] 85005 Red Cell Distribution Width Septembe r 2019 2:22pm 13 % 11-15 [facility], [address] [place] [address] 84813 Red Cell Distribution Width July 11:18am 13 % 11-15 [facility], [address] [place] [address] 30051 Platelet Count February 05, 2020 8:35pm 246 10e3/ul 130-472 [facility], [address] [place] [address] Platelet Count February 01, 2020 2:22pm 256 10e3/ul 130-472 [facility], [address] [place] [address] Platelet Count July 31, 2019 11:18am 239 10e3/ul 130-472 [facility], [address] [place] [address] 74935 Mean Platelet Volume February 05, 2020 8:35pm 9.5 fl 9.1-13.1 [facility], [address] [place] [address] Mean Platelet Volume February 01, 2020 2:22pm 9.5 fl 9.1-13.1 [facility], [address] [place] [address] Mean Platelet Volume July 31, 2019 11:18am 9.9 fl 9.1-13.1 [facility], [address] [place] [address] 17367 Neutrophils (%) (Auto) January 8:35pm 55.4 % 41-77 [facility], [address] [place] [address] 88147 Neutrophils (%) (Auto) January 2:22pm 55.4 % 41-77 [facility], [address] [place] [address] 40174 Neutrophils (%) (Auto) July 30 11:18am 58.8 % 41-77 [facility], [address] [place] [address] 46435 Absolute Neutrophil February 04, 020 8:35pm 5.0 # 1.7-7.6 [facility], [address] [place] [address] Absolute Neutrophil January 31, 020 2:22pm 5.6 # 1.7-7.6 [facility], [address] [place] [address] 95966 Absolute Neutrophil July 31, 2019 11:18a m 4.5 # 1.7-7.6 [facility], [address] [place] [address] 70862 Lymphocytes (%) (Auto) January 8:35pm 36.9 % 14-46 [facility], [address] [place] [address] 60105 Lymphocytes (%) (Auto) January 2:22pm 35.2 % 14-46 [facility], [address] [place] [address] 86576 Lymphocytes (%) (Auto) July 30 11:18am 32.6 % 14-46 [facility], [address] [place] [address] 04856 Lymphocytes # (Auto) February 05, 2020 8:35pm 3.3 # 0.6-4.6 [facility], [address] [place] [address] 32711 Lymphocytes # (Auto) February 01, 2020 2:22pm 3.5 # 0.6-4.6 [facility], [address] [place] [address] 64684 Lymphocytes # (Auto) July 31, 2019 11:18am 2.5 # 0.6-4.6 [facility], [address] [place] [address] 09362 Monocytes (%) (Auto) February 05, 2020 8:35pm 6.6 % 4-12 [facility], [address] [place] [address] 91291 Monocytes (%) (Auto) February 01, 2020 2:22pm 8.5 % 4-12 [facility], [address] [place] [address] 19844 Monocytes (%) (Auto) July 31, 2019 11:18am 7.8 % 4-12 [facility], [address] [place] [address] 83372 Monocytes # February 05, 2020 8:35pm 0.6 # 0.2-1.2 [facility], [address] [place] [address] 57868 Monocytes # February 01, 2020 2:22pm 0.9 # 0.2-1.2 [facility], [address] [place] [address] 16095 Monocytes # July 31, 2019 11:18am 0.6 # 0.2-1.2 [facility], [address] [place] [address] 86045 Eosinophils (%) (Auto) January 8:35pm 0.6 % 0-7 [facility], [address] [place] [address] 08300 Eosinophils (%) (Auto) January 2:22pm 0.5 % 0-7 [facility], [address] [place] [address] 92371 Eosinophils (%) (Auto) July 30 11:18am 0.6 % 0-7 [facility], [address] [place] [address] 34915 Absolute Eosinophils (CBC) February 05, 2020 8:35pm 0.1 # 0.0-0.5 [facility], [address] [place] [address] Absolute Eosinophils (CBC) February 01, 2020 2:22pm 0.1 # 0.0-0.5 [facility], [address] [place] [address] 11675 Absolute Eosinophils (CBC) July 11:18am 0.1 # 0.0-0.5 [facility], [address] [place] [address] 67998 Basophils (%) (Auto) February 05, 2020 8:35pm 0.3 % 0.4-1.3 [facility], [address] [place] [address] 64224 Basophils (%) (Auto) February 01, 2020 2:22pm 0.3 % 0.4-1.3 [facility], [address] [place] [address] 57486 Basophils (%) (Auto) July 31, 2019 11:18am 0.1 % 0.4-1.3 [facility], [address] [place] [address] 01682 Absolute Basophils (CBC) February 042019 8:35pm 0.0 # 0.0-0.2 [facility], [address] [place] [address] Absolute Basophils (CBC) January 312019 2:22pm 0.0 # 0.0-0.2 [facility], [address] [place] [address] 94824 Absolute Basophils (CBC) July 31, 2019 11:18am 0.0 # 0.0-0.2 [facility], [address] [place] [address] 34488 Immature Granulocyte % (Auto) 2019 8:35pm 0.2 % 0-2 [facility], [address] [place] [address] 61547 Immature Granulocyte % (Auto) 2019 2:22pm 0.1 % 0-2 [facility], [address] [place] [address] 09840 Immature Granulocyte % (Auto) July 31, 2019 11:18am 0.1 % 0-2 [facility], [address] [place] [address] 64886 Absolute Immature Granulocyte (auto February 05, 2020 8:35pm 0.0 # 0-0.1 [facility], [address] [place] [address] 24363 Absolute Immature Granulocyte (auto February 01, 2020 2:22pm 0.0 # 0-0.1 [facility], [address] [place] [address] Absolute Immature Granulocyte (auto July 31, 2019 11:18am 0.0 # 0-0.1 [facility], [address] [place] [address] Add Manual Differential January h2019 8:35pm No [facility], [address] [place] [address] Add Manual Differential January d2019 2:22pm No [facility], [address] [place] [address] Add Manual Differential July 30 11:18am No [facility], [address] [place] [address] Prothrombin Time February 05, 2020 8:35p m 11.2 SECONDS 9.6-12.3 [facility], [address] [place] [address] INR International Normalized Ratio S ep2019 8:35pm 1.1 0.9-1.1 THE INR IS OPERATIONALLY DEFINED FOR GILMA SH PLASMA FROMPATIENTS STABILIZED ON ORAL ANTICOAGULANTS. ROUTINE ANTICOAGULANT THERAPY 2.0-3.0RECURRENT SYSTEMIC EMBOLISM/HEART VALVE REPLACEMENT 2.5-3.5 [facility], [address] [place], [place] [id number] Partial Thromboplastin Time - Sharon S ep2019 8:35pm 26.4 SECONDS 22.7-31.6 [facility], [address] [place] [address] 96802 Urine Color July 31, 2019 11:25am Yellow [facility], [address] [place] [address] 25623 Urine Color February 05, 2020 8:15pm Yellow [facility], [address] [place] [address] 44142 Urine Appearance February 05, 2020 8:15p m Clear CLEAR [facility], [address] [place] [address] Urine Appearance July 31, 2019 11:25am Clear CLEAR [facility], [address] [place] [address] Urine pH February 05, 2020 8:15pm 7.0 [facility], [address] [place] [address] Urine pH July 31, 2019 11:25am 8.0 [facility], [address] [place] [address] 76192 Urine Specific Anchor January 8:15pm 1.008 [facility], [address] [place] [address] Urine Specific Anchor July 30 11:25am 1.022 [facility], [address] [place] [address] 62011 Urine Leukocyte Esterase July 31, 2019 11:25am Negative NEGATIVE [facility], [address] [place] [address] 32715 Urine Leukocyte Esterase February 042019 8:15pm Negative NEGATIVE [facility], [address] [place] [address] 71191 Urine Nitrite July 31, 2019 11:25am Negative NEGATIVE [facility], [address] [place] [address] 41371 Urine Nitrate February 05, 2020 8:15pm Negative NEGATIVE [facility], [address] [place] [address] 39588 Urine Protein February 05, 2020 8:15pm Negative NEGATIVE [facility], [address] [place] [address] 92130 Urine Protein July 31, 2019 11:25am Negative NEGATIVE [facility], [address] [place] [address] 20753 Urine Glucose February 05, 2020 8:15pm Negative NEGATIVE [facility], [address] [place] [address] 67297 Urine Glucose July 31, 2019 11:25am Negative NEGATIVE [facility], [address] [place] [address] 53766 Urine Ketones February 05, 2020 8:15pm Trace NEGATIVE [facility], [address] [place] [address] 76968 Urine Ketones July 31, 2019 11:25am Negative NEGATIVE [facility], [address] [place] [address] 58038 Urine Urobilinogen February 04 8:15pm 0.2 eu/dl [facility], [address] [place] [address] 62995 Urine Urobilinogen July 31, 2019 11:25am 1 eu/dl [facility], [address] [place] [address] 03026 Urine Bilirubin February 05, 2020 8:15pm Negative NEGATIVE [facility], [address] [place] [address] 89677 Urine Bilirubin July 31, 2019 11:25am Negative NEGATIVE [facility], [address] [place] [address] 89033 Urine Blood July 31, 2019 11:25am Negative NEGATIVE [facility], [address] [place] [address] 08281 Urine Blood February 05, 2020 8:15pm Negative NEGATIVE [facility], [address] [place] [address] 03079 Microscopic Urinalysis Comment July 31, 2019 11:25am No [facility], [address] [place] [address] 73159 Add Urine Microanalysis January 8:15pm No [facility], [address] [place] [address] 31661 Blood Urea Nitrogen February 04 020 8:35pm 8 mg/dL 02-20 [facility], [address] [place] [address] 02123 Blood Urea Nitrogen January 31 020 2:22pm 6 mg/dL 02-20 [facility], [address] [place] [address] 26239 Blood Urea Nitrogen July 31, 2019 11:18a m 17 mg/dL 02-20 [facility], [address] [place] [address] 06822 Sodium Level February 05, 2020 8:35pm 137 mmol/L 132-146 [facility], [address] [place] [address] 45414 Sodium Level February 01, 2020 2:22pm 134 mmol/L 132-146 [facility], [address] [place] [address] 38916 Sodium Level July 31, 2019 11:18am 138 mmol/L 132-146 [facility], [address] [place] [address] 27113 Potassium Level February 05, 2020 8:35pm 3.7 mmol/L 3.5-5.5 [facility], [address] [place] [address] 88641 Potassium Level February 01, 2020 2:22pm 4.0 mmol/L 3.5-5.5 [facility], [address] [place] [address] 24564 Potassium Level July 31, 2019 11:18am 4.5 mmol/L 3.5-5.5 [facility], [address] [place] [address] 54104 Chloride Level February 05, 2020 8:35pm 105 mmol/l 99-109 [facility], [address] [place] [address] 47221 Chloride Level February 01, 2020 2:22pm 101 mmol/l 99-109 [facility], [address] [place] [address] 92577 Chloride Level July 31, 2019 11:18am 105 mmol/l 99-109 [facility], [address] [place] [address] 60230 Carbon Dioxide Level February 05, 2020 8:35pm 25 mmol/l 20-31 [facility], [address] [place] [address] 04757 Carbon Dioxide Level February 01, 2020 2:22pm 28 mmol/l [facility], [address] [place] [address] 50257 Carbon Dioxide Level July 31, 2019 11:18am 28 mmol/l [facility], [address] [place] [address] 06033 Anion Gap February 05, 2020 8:35pm 11 mmol/l 16 [facility], [address] [place] [address] Anion Gap February 01, 2020 2:22pm 9 mmol/l 01-13 [facility], [address] [place] [address] 54161 Anion Gap July 31, 2019 11:18am 10 mmol/l 01-13 [facility], [address] [place] [address] 86218 Glucose Level February 05, 2020 8:35pm 92 mg/dL 74-106 [facility], [address] [place] [address] 58485 Glucose Level February 01, 2020 2:22pm 92 mg/dL 74-106 [facility], [address] [place] [address] 34408 Glucose Level July 31, 2019 11:18am 97 mg/dL 74-106 [facility], [address] [place] [address] 79311 Creatinine February 05, 2020 8:35pm 0.7 mg/dL 0.5-1.1 [facility], [address] [place] [address] Creatinine February 01, 2020 2:22pm 0.9 mg/dL 0.5-1.1 [facility], [address] [place] [address] Creatinine July 31, 2019 11:18am 0.9 mg/dL 0.5-1.1 [facility], [address] [place] [address] 24584 Glomerular Filtration Rate Calc Sept emb2019 8:35pm Greater than 60 ml/min ABOVE 60 [facility], [address] [place] [address] Glomerular Filtration Rate Calc Sept ember 2019 2:22pm Greater than 60 ml/min ABOVE 60 [facility], [address] [place] [address] 31592 Glomerular Filtration Rate Calc Martin 2019 11:18am Greater than 60 ml/min ABOVE 60 [facility], [address] [place] [address] Alanine Aminotransferase (ALT/SGPT) February 05, 2020 8:35pm 36 U/L 10-49 [facility], [address] [place] [address] Alanine Aminotransferase (ALT/SGPT) July 31, 2019 11:18am 44 U/L 10-49 [facility], [address] [place] [address] Aspartate Amino Transf (AST/SGOT) ptember 2019 8:35pm 22 U/L 0-33 [facility], [address] [place] [address] Aspartate Amino Transf (AST/SGOT) [facility] 2019 11:18am 20 U/L 0-33 [facility], [address] [place] [address] Alkaline Phosphatase February 05, 2020 8:35pm 55 U/L 45-129 [facility], [address] [place] [address] Alkaline Phosphatase July 31, 2019 11:18am 63 U/L 45-129 [facility], [address] [place] [address] 21743 Calcium Level February 05, 2020 8:35pm 9.4 mg/dL 8.5-10.1 [facility], [address] [place] [address] 49133 Calcium Level February 01, 2020 2:22pm 9.9 mg/dL 8.5-10.1 [facility], [address] [place] [address] 50143 Calcium Level July 31, 2019 11:18am 9.1 mg/dL 8.5-10.1 [facility], [address] [place] [address] 80476 Total Bilirubin February 05, 2020 8:35pm 0.7 mg/dL 0.3-1.2 [facility], [address] [place] [address] 05465 Total Bilirubin July 31, 2019 11:18am 1.0 mg/dL 0.3-1.2 [facility], [address] [place] [address] 56075 Albumin February 05, 2020 8:35pm 3.9 g/dL 3.2-4.8 [facility], [address] [place] [address] [id number] Albumin July 31, 2019 11:18am 4.1 g/dL 3.2-4.8 [facility], [address] [place] [address] [id number] Serum Total Protein February 04 8:35pm 6.6 g/dL 5.7-8.2 [facility], [address] [place] [address] 23660 Serum Total Protein July 31, 2019 11:18a m 7.1 g/dL 5.7-8.2 [facility], [address] [place] [address] [id number] Lactic Acid Level February 04 0 8:35pm 0.8 mmol/L 0.5-2.2 [facility], [address] [place] [address] [id number] Triglycerides Level July 31, 2019 11:18a m 174 mg/dL 0-150 [facility], [address] [place] [address] 12316 Cholesterol Level July 31, 2019 11:18am 212 mg/dL 120-200 [facility], [address] [place] [address] 27483 HDL Cholesterol July 31, 2019 11:18am 44 mg/dL HDL Less than 40 mg/dL: Major risk for CHDHDL Greater than 59 mg/dL: Low risk for CHD [facility], [address] [place] [address] 46578 LDL Cholesterol, Calculated July 11:18am 134 mg/dL 0-100 [facility], [address] [place] [address] 48986 Free Testosterone (Direct) April 04, 2020 10:50am 218.6 pg/mL The concentration of free testosterone is derivedfrom a mathematical model using total testosteroneby LCMSMS, sex hormone binding globulin and albumin.This test was developed and its analytical performancecharacteristics have been determined by [employer] [place], [place]. It hasnot been cleared or approved by the U.S. Food and DrugAdministration. This assay has been validated pursuantto the CLIA regulations and is used for clinicalpurposes.THIS TEST WAS PERFORMED AT:[facility] [place] [address]LODYUVPBLAISE FOY MD,PHD [facility] Testosterone Level April 04 0 10:50am 649 ng/dL THIS TEST WAS PERFORMED AT:[facility] [id number] MERATI,MD [facility] Results Procedure Source Result Collection Date/Time Result Date/Time Result Comment Performing Site Venous blood No Organi sms Detected February 07, 2020 7:01pm February 09, 2020 11:39am [facility] LABORATORY, [address] [place] [id number] Diagnostic Imaging Reports Report Dictated Date/Time Dictated By Status Radiology Report February 05, 2020 11:46pm Preston Lucas MD completed [facility] [address] [facility] [place] [address] [phone] NAME SEX PT STATUS ACCOUNT NUMBER PIPER AN [facility] ER [id number] ORDERING PHYSICIAN LOCATION MEDICAL RECORD NO. Skip Rutherford MD ER [id number] ATTENDING PHYSICIAN DATE OF DATE OF EXAM/TIME [...] Medication check Medication check R79.89 Anxiety follow-up Reason for Visit Lump in neck Umbilical hernia Umbilical hernia Depression Anxiety Depression Paranoia PTSD (post-traumatic stress disorder) Encounters Encounter Location(s) Ar rival/Admit Date Discharge/Depart Date Provider(s) Departed Physician/Provider Office Visit [facility] July 12, 2019 9:48am July 12, 2019 10:15am Kelli Mcmanus Registered Referred [facility] July 31, 2019 11:05am Kelli Mcmanus Departed Physician/Provider Office Visit [facility] October 19, 2019 8:56am October 19, 2019 9:31am Kelli Mcmanus Registered Outpatient [facility] Dermatology November 13, 2019 2:43pm null Registered Referred [facility] November 16, 2019 6:30pm Kelli Mcmanus Departed Physician/Provider Office Visit [facility] December 20, 2019 9:19am December 20, 2019 9:55am Kelli Mcmanus Departed Physician/Provider Office Visit [facility] February 01, 2020 1:31pm February 01, 2020 2:13pm Naveed Hannon MD Registered Referred [facility] February 01, 2020 2:19pm Naveed Hannon MD Departed Emergency [facility] ER February 05, 2020 7:55pm February 06, 2020 12:37am null Registered Referred [facility] February 07, 2020 5:55pm [facility] Lab Departed Physician/Provider Office Visit [facility] March 13, 2020 8:54am March 13, 2020 9:40am Kelli Mcmanus Departed Physician/Provider Office Visit [facility] April 04, 2020 10:04am April 04, 2020 10:33am Kelli Mcmanus Registered Referred [facility] April 04, 2020 10:35am Kelli Mcmanus Departed Physician/Provider Office Visit [facility] April 24, 2020 11:39am April 24, 2020 11:50am Kelli Mcmanus Recent Diagnosis Onset Date Lump in neck Umbilical hernia Umbilical hernia Depression Anxiety Depression Paranoia PTSD (post-traumatic stress disorder) Assessments Diagnosis Onset Date Res olution Status Lump in neck resolved Umbilical hernia resolved Umbilical hernia resolved Depression acute Anxiety acute Depression acute Paranoia acute PTSD (post-traumatic stress disorder) acute Functional Status No Functional Status information available Goals Goals may be documented in an alternate section. Immunizations Immunization Event Date Not Given Reason Dose Number Open Die Inspector Lot Number Vaccine Information Statement (VIS) Detamisha il influenza vaccine, inactivated Octob er 2019 [id number] Mental Status Observation Response Kal e Recorded Impairments No impairments or barriers February 05, 2020 8:13pm Medical Equipment No Medical Equipment Information available Insurance Providers Guarantor PIPER Judit NATALIYA Address [address] [place] [address] [address] [facility] [address] [place] [address] Contact Info. Home Phone: Payer Policy Id Coverage Id Subscriber's Name Subscriber Id Effective Date Expiration Date [employer] [id number] PIPER AN [id number] [employer] [id number] PIPER AN [id number] [facility] [id number] PIPER AN [id number] [employer] [id number] PIPER AN [id number] Self Pay Self N/A [facility] [id number] PIPER AN [id number] Plan of Treatment He is doing well on new medications. He was seeing in [facility], however, he is unable to be seen [...] with the operation. I will refer to claims sorter. He is taking 2 allergy medications already at this oint. Testing may be helpful, possible serum [...] Provider Address Juan Garcia MD Email: [email or web address] Phone: [phone] [facility] [phone] F32.9 - Major depressive disorder, singl e episode, unspecified,F41.9 - Anxiety disorder, unspecified April 04, 2020 [facility] [address] [facility] [address] D22.9 - Melanocytic nevi, unspecified December 20, 2019 Dermatology [facility] [address] [facility] [address] Future Procedures Future procedure information is unavailable Future Medications Future medication information is unavailable Patient Instructions DASH Eating Plan (GEN) Hypertension (GEN) Social History Smoking Status Status Date of Observation Current every day smoker February 042019 9:21pm Observation Status Observation Response Kal e of Response Smoking Status Current every day smoker February 05, 2020 8:21pm Alcohol Use Yes r 2019 8:21pm Substance Use Yes 2019 8:21pm When did patient quit smoking? [...] 13, 2020 10:01am Respiratory rate 18 /min -March 13, 2020 10:01am Oxygen saturation by Pulse [...] 04, 2020 10:06am Heart Rate 84 /min -100 April 04, 2020 10:06am Respiratory rate 18 [...] 24, 2020 11:43am Heart Rate 74 /min 60-April 24, 2020 11:43am Respiratory rate 22 /min -April 24, 2020 11:43am Oxygen saturation by Pulse oximetry 98 % 95- 100 April 24, 2020 11:43am BP Systolic 140 mm[Hg] April 24, 2020 11:43am BP Diastolic 70 mm[Hg] April 24, 2020 11:43am
--- OUTSIDE RECORDS SUMMARY | 2020-06-28 11:17 | CCD | Continuity of Care Document ---
Author Author [facility]ior [facility] Organization Unknown Address [facility] [address] [place] [address] Phone [phone] Care Team Providers Care Welder/Fabricator Name Role Phone Marisol Richardson [phone] Problems Active Problems Provider Date Essential hypertension Kalyan Richardson MD Onset: 02/06/2020 Ventral hernia without obstruction or gangrene Kalyan [...] Denies Drug Use Allergies, Adverse Reactions, Alerts Description No Known Drug Allergies Medications Active Medications SIG Qnty Indications Ordering Provide r Date Depakote 500mg Tablets DR 1 by mouth every day at bedtime Unknown Celexa 40mg Tablets 1 by mouth every day Unknown Xanax 0.5mg Tablets 1 tab by mouth once a day Unknown Lisinopril 40mg Tablets 1 by mouth every day Unknown Meloxicam 7.5mg Tablets 1 by mouth bid Unknown Immunizations Description No Information Available Vital Signs Date Vital Result Comment 02/06/2020 11:35am BP Systolic 141 mmHg BP Diastolic 92 mmHg Heart Rate 70 /min Body Temperature 97.3 F Respiratory Rate 17 /min Weight 250.00 lb Weight 113.400 kg Height 71 inches BMI (Body Mass Index) 34.9 kg/m2 BSA (Body Surface Area) 2.32 m2 Results Description No Information Available Procedures Description No Information Available Medical Devices Description No Information Available Encounters Description No Information Available Assessments Date Code Description Provider 02/06/2020 K43.9 Ventral hernia without obstructi on or gangrene Kalyan Richardson MD Plan of Treatment 02/06/2020 - Kalyan Richardson MD* K43.9 Ventral [...]
--- OUTSIDE RECORDS SUMMARY | 2020-06-28 11:17 | CCD | Continuity of Care Document ---
Author Júnior Lucas [facility] Organization Unknown Address [address] [address] Phone [phone] Care Team Providers Care Ocularist Name Role Phone Marisol Richardson AUTM [phone] [facility] AUTM Problems Active Problems Provider Date Essential [...] Available Procedures Date Code Description Status 04/18/2020 89046 Psychiatric Diagnostic Evaluatio n Completed Medical Devices Description No Information Available Encounters Description No Information Available Assessments Date Code Description Provider 04/18/2020 F25.1 Schizoaffective disorder, depres sive type Papa Doshi, DIRECTOR SPEECH 02/06/2020 K43.9 Ventral hernia without obstructi on or gangrene Kalyan Richardson MD Plan of Treatment Future Appointment(s):* 05/06/2020 11:00 am - Eliane Chavira RN at [facility] * 05/20/2020 12:00 pm - JEANETTE Win at [facility] * 05/08/2020 8:00 am - JEANETTE Win at [facility] 02/06/2020 - Kalyan Richardson MD* K43.9 [...]
--- OUTSIDE RECORDS SUMMARY | 2020-06-28 11:17 | CCD | Continuity of Care Document ---
Author Author [facility] Address [address] [place] [address] Phone Support Name Relationship Address Phone Kelli Mcmanus PRS [address] [place] [address] Ina Geronimo PRS Unknown Unavailable Naveed Hannon PRS [address] [place] [address] Skip Rutherford PRS [address] [place] [address] [facility] [address] [place] [address] Allergies, Adverse Reactions, Alerts Allergen Type Severity [...] Inject 1.5 ml into muscle Q2 weeks. [employer] COUNTERPERSON: [id number] Ofloxacin Discontinued 1 DROPS BOTH EYES Four [...] nostril Afluria Qd (3yr up)(PF) (flu vac [id number] 36mos up(PF)) Discontinued 60 MCG IM 1 [...] Q24H April 04, 2020 10:24am Testosterone Cypionate Active 200 MG IM every 2 weeks 06 13April 04, 2020 10:27am Inject 1ml into muscle Q2 we ek [employer] COUNTERPERSON:[id number] Diltiazem Hcl Discontinued 240 MG PO Once [...] MG PO Three times a day 90 30 Rhoda 9th, 2019 8:28am February 16, 2019 7:47am take 1 [...] 1ml i nto muscle every 2 weeks. [employer] COUNTERPERSON: [id number] Syringe (Disposable) (Bd Luer-Yanira Tip Co ntrol [...] Inject 1 .5ml into muscle Q2 weeks. [employer] COUNTERPERSON:[id number] Syringe (Disposable) (Bd Luer-Yanira Tip Co ntrol [...] Inject 1. 5ml into muscle Q2 weeks. [employer] COUNTERPERSON:[id number] Syringe (Disposable) (Bd Luer-Yanira Tip Co ntrol Syring) 10 mL syringe Discontinued 1 EACH MC every 2 weeks 1 April 28, 2019 7:29am June 012019 8:37am With 1 inch 23g needle. Testosterone Cypionate Discontinued 300 MG IM every 2 weeks 1.5 April 28 19 7:29am June 27, 2019 8:37am Inject 1.5 ml into muscle Q2 weeks. [employer] COUNTERPERSON: [id number] Syringe (Disposable) (Bd Luer-Yanira Tip Co ntrol Syring) 10 mL syringe Discontinued 1 EACH MC every 2 weeks 06 29June 27, 2019 8:37am October 19, 2019 10:10am With 1 inch 23g needle. Testosterone Cypionate Discontinued 300 MG IM every 2 weeks 1.5 June 27 0 8:37am August 21, 2019 8:55am Inject 1.5ml into muscle Q2 weeks. [employer] COUNTERPERSON: [id number] Testosterone Cypionate Discontinued 300 MG IM every 2 weeks 1.5 August 21, 2019 8:55am October 19, 2019 11:25am Inject 1.5ml into muscle Q2 weeks. [employer] COUNTERPERSON: [id number] Testosterone Cypionate Discontinued 300 MG IM every 2 weeks 1.5 October 19, 2019 11 :24am November 29, 2019 7:35am Inject 1.5ml i nto muscle Q2 weeks. [employer] COUNTERPERSON: [id number] Meloxicam Discontinued 7 .5 MG PO 2 [...] Inject 1.5ml i nto muscle Q2 weeks. [employer] COUNTERPERSON: [id number] Testosterone Cypionate Discontinued 300 MG IM every [...] Divalproex Discontinued 500 MG PO At Bedtime 30 January 25, 2020 8:48am January 25, 2020 8:51am Divalproex Discontinued 500 MG PO At Bedtime January 25, 2020 8:51am March 13, 2020 9:07am Taken over from Testosterone Cypionate Discontinued 300 MG IM every 2 weeks 1.5 14 February 05 20 9:04am February 27, 2020 3:08pm Inject 1 .5ml into muscle Q2 week Citalopram Discontinued 40 MG PO daily 60 February 06, 2020 9:05am March 13, 2020 9:05am Syringe (Disposable) ([employer] Luer-Yanira Tip Co ntrol Syring) 10 mL syringe Active 1 EACH MC every 2 weeks 1 February 06, 2020 9:06am With 1 inch 23g needle. Alprazolam Discontinued 0.5 MG PO daily February 21, 2020 7:22am March 18, 2020 2:25pm take 1 tablet once a day. Testosterone Cypionate Discontinued 300 MG IM every 2 weeks 1.5 14 February 26, 2 020 3:07pm April 04, 2020 10:27am Inject 1. 5ml into muscle Q2 week [employer] COUNTERPERSON:[id number] Prazosin Active 1 MG PO 2 Times Per Day 60 March 18, 2020 2:23pm Alprazolam Discontinued 0.5 MG PO daily March 18, 2020 2:24pm March 18, 2020 2:36pm [employer] COUNTERPERSON: [id number] Alprazolam Active 0.5 MG PO daily March 18, 2020 2:36pm [employer] COUNTERPERSON: [id number] Problems Active Problems Medical Problem Onset Date Status PTSD (post-traumatic stress disorder) Active Anxiety Active Depression Active Paranoia Active Low testosterone in male Active Inactive/Resolved Problems Medical Problem Onset Date Status Sleep apnea Resolved Lump in neck Resolved Umbilical hernia Resol jeanna Suspicious nevus Resol jeanna Environmental allergies Resolved Eye infection Resolved Hypertension Resolved Procedures Procedure Date Performed Status Blood Culture February 07, [address] Abd/pel w/ contrast January 8:21pm completed Relevant Diagnostic Tests and/or Laboratory Data Laboratory Results Test Date/Time Result Interpretation Reference Range Result Comment Performing Site White Blood Count February 04 0 8:35pm 9.0 10e3/uL 4.45-10.71 [facility], [address] [place] [address] White Blood Count January 31 0 2:22pm 10.0 10e3/uL 4.45-10.71 [facility], [address] [place] [address] White Blood Count July 31, 2019 11:18am 7.7 10e3/uL 4.45-10.71 [facility], [address] [place] [address] 52507 Red Blood Count February 05, 2020 8:35pm 5.38 10e6/uL 4.3-6.1 [facility], [address] [place] [address] Red Blood Count February 01, 2020 2:22pm 5.61 10e6/uL 4.3-6.1 [facility], [address] [place] [address] Red Blood Count July 31, 2019 11:18am 5.92 10e6/uL 4.3-6.1 [facility], [address] [place], [place] [id number] Hemoglobin February 05, 2020 8:35pm 16.6 g/dL [facility], [address] [place] [address] Hemoglobin February 01, 2020 2:22pm 17.4 g/dL [facility], [address] [place] [address] Hemoglobin July 31, 2019 11:18am 17.9 g/dL [facility], [address] [place] [address] Hematocrit February 05, 2020 8:35pm 47.1 % 42-52 [facility], [address] [place], [place] [id number] Hematocrit February 01, 2020 2:22pm 48.4 % 42-52 [facility], [address] [place] [address] 40900 Hematocrit July 31, 2019 11:18am 51.5 % 42-52 [facility], [address] [place] [address] 68810 Mean Corpuscular Volume January 8:35pm 87.5 fl 80-96 [facility], [address] [place], [place] [address] Mean Corpuscular Volume January 2:22pm 86.3 fl 80-96 [facility], [address] [place] [address] 99985 Mean Corpuscular Volume July 30 11:18am 87.[address] [place] [address] LABORATORY, [address] [place] [address] 60816 Mean Corpuscular Hemoglobin Septembe r 2019 8:35pm 30.9 pg 2731 [facility], [address] [place] [address] 93938 Mean Corpuscular Hemoglobin Septembe r 2019 2:22pm 31.0 pg 2731 [facility], [address] [place] [address] Mean Corpuscular Hemoglobin July 11:18am 30.[address] [facility], [address] [place] [address] 75189 Mean Corpuscular Hemoglobin Concent February 05, 2020 8:35pm 35.2 g/dl [address] [place] [address] LABORATORY, [address] [place] [address] Mean Corpuscular Hemoglobin Concent February 01, 2020 2:22pm 36.0 g/dl [address] [place] [address] LABORATORY, [address] [place] [address] 96115 Mean Corpuscular Hemoglobin Concent July 31, 2019 11:18am 34.8 g/dl [address] [place] [address] LABORATORY, [address] [place] [address] 22768 Red Cell Distribution Width Septembe r 2019 8:35pm 13 % 1115 [facility], [address] [place] [address] Red Cell Distribution Width Septembe r 2019 2:22pm 13 % 11-15 [facility], [address] [place] [address] Red Cell Distribution Width July 11:18am 13 % 11-15 [facility], [address] [place] [address] 12145 Platelet Count February 05, 2020 8:35pm 246 10e3/ul 130-472 [facility], [address] [place] [address] Platelet Count February 01, 2020 2:22pm 256 10e3/ul 130-472 [facility], [address] [place] [address] Platelet Count July 31, 2019 11:18am 239 10e3/ul 130-472 [facility], [address] [place] [address] Mean Platelet Volume February 05, 2020 8:35pm 9.5 fl 9.1-13.1 [facility], [address] [place] [address] 48843 Mean Platelet Volume February 01, 2020 2:22pm 9.5 fl 9.1-13.1 [facility], [address] [place] [address] 61167 Mean Platelet Volume July 31, 2019 11:18am 9.9 fl 9.1-13.1 [facility], [address] [place] [address] 13488 Neutrophils (%) (Auto) January 8:35pm 55.4 % [address] [facility], [address] [place] [address] 41286 Neutrophils (%) (Auto) January 2:22pm 55.4 % [address] [facility], [address] [place] [address] 65639 Neutrophils (%) (Auto) July 30 11:18am 58.8 % [address] [facility], [address] [place] [address] 68984 Absolute Neutrophil February 04, 020 8:35pm 5.0 # 1.7-7.6 [facility], [address] [place] [address] 84859 Absolute Neutrophil January 31, 2 020 2:22pm 5.6 # 1.7-7.6 [facility], [address] [place] [address] 53585 Absolute Neutrophil July 31, 2019 11:18a m 4.5 # 1.7-7.6 [facility], [address] [place] [address] 18129 Lymphocytes (%) (Auto) January 8:35pm 36.9 % 14-46 [facility], [address] [place] [address] 01280 Lymphocytes (%) (Auto) January 2:22pm 35.2 % 14-46 [facility], [address] [place] [address] 82484 Lymphocytes (%) (Auto) July 30 11:18am 32.6 % 14-46 [facility], [address] [place] [address] 45116 Lymphocytes # (Auto) February 05, 2020 8:35pm 3.3 # 0.6-4.6 [facility], [address] [place] [address] 47968 Lymphocytes # (Auto) February 01, 2020 2:22pm 3.5 # 0.6-4.6 [facility], [address] [place] [address] 33289 Lymphocytes # (Auto) July 31, 2019 11:18am 2.5 # 0.6-4.6 [facility], [address] [place] [address] 22766 Monocytes (%) (Auto) February 05, 2020 8:35pm 6.6 % 4-12 [facility], [address] [place] [address] 42380 Monocytes (%) (Auto) February 01, 2020 2:22pm 8.5 % 4-12 [facility], [address] [place] [address] 81826 Monocytes (%) (Auto) July 31, 2019 11:18am 7.8 % 4-12 [facility], [address] [place] [address] 87399 Monocytes # February 05, 2020 8:35pm 0.6 # 0.2-1.2 [facility], [address] [place] [address] 51784 Monocytes # February 01, 2020 2:22pm 0.9 # 0.2-1.2 [facility], [address] [place] [address] 71517 Monocytes # July 31, 2019 11:18am 0.6 # 0.2-1.2 [facility], [address] [place] [address] 69180 Eosinophils (%) (Auto) January 8:35pm 0.6 % 0-7 [facility], [address] [place] [address] 87857 Eosinophils (%) (Auto) January 2:22pm 0.5 % 0-7 [facility], [address] [place] [address] 44151 Eosinophils (%) (Auto) July 30 11:18am 0.6 % 0-7 [facility], [address] [place] [address] 53592 Absolute Eosinophils (CBC) February 05, 2020 8:35pm 0.1 # 0.0-0.5 [facility], [address] [place] [address] 32550 Absolute Eosinophils (CBC) February 01, 2020 2:22pm 0.1 # 0.0-0.5 [facility], [address] [place] [address] 75114 Absolute Eosinophils (CBC) July 11:18am 0.1 # 0.0-0.5 [facility], [address] [place], [place] [address] Basophils (%) (Auto) February 05, 2020 8:35pm 0.3 % 0.4-1.3 [facility], [address] [place] [address] 15150 Basophils (%) (Auto) February 01, 2020 2:22pm 0.3 % 0.4-1.3 [facility], [address] [place] [address] 87808 Basophils (%) (Auto) July 31, 2019 11:18am 0.1 % 0.4-1.3 [facility], [address] [place] [address] 99746 Absolute Basophils (CBC) February 042019 8:35pm 0.0 # 0.0-0.2 [facility], [address] [place] [address] Absolute Basophils (CBC) January 312019 2:22pm 0.0 # 0.0-0.2 [facility], [address] [place] [address] 48729 Absolute Basophils (CBC) July 31, 2019 11:18am 0.0 # 0.0-0.2 [facility], [address] [place] [address] 10880 Immature Granulocyte % (Auto) 2019 8:35pm 0.2 % 0-2 [facility], [address] [place] [address] 46473 Immature Granulocyte % (Auto) 2019 2:22pm 0.1 % 0-2 [facility], [address] [place] [address] 88942 Immature Granulocyte % (Auto) July 31, 2019 11:18am 0.1 % 0-2 [facility], [address] [place] [address] 44122 Absolute Immature Granulocyte (auto February 05, 2020 8:35pm 0.0 # 0-0.1 [facility], [address] [place] [address] 08475 Absolute Immature Granulocyte (auto February 01, 2020 2:22pm 0.0 # 0-0.1 [facility], [address] [place] [address] 55524 Absolute Immature Granulocyte (auto July 31, 2019 11:18am 0.0 # 0-0.1 [facility], [address] [place] [address] 74634 Add Manual Differential January 8:35pm No [facility], [address] [place] [address] 65752 Add Manual Differential January 2:22pm No [facility], [address] [place] [address] 45215 Add Manual Differential July 30 11:18am No [facility], [address] [place] [address] 37675 Prothrombin Time February 05, 2020 8:35p m 11.2 SECONDS 9.6-12.3 [facility], [address] [place] [address] 66810 INR International Normalized Ratio S eptemb2019 8:35pm 1.1 0.9-1.1 THE INR IS OPERATIONALLY DEFINED FOR GILMA SH PLASMA FROMPATIENTS STABILIZED ON ORAL ANTICOAGULANTS. ROUTINE ANTICOAGULANT THERAPY 2.0-3.0RECURRENT SYSTEMIC EMBOLISM/HEART VALVE REPLACEMENT 2.5-3.5 [facility], [address] [place] [address] 74601 Partial Thromboplastin Time - Sharon S ep2019 8:35pm 26.4 SECONDS 22.7-31.6 [facility], [address] [place] [address] 63522 Urine Color July 31, 2019 11:25am Yellow [facility], [address] [place] [address] 68645 Urine Color February 05, 2020 8:15pm Yellow [facility], [address] [place] [address] 17669 Urine Appearance February 05, 2020 8:15p m Clear CLEAR [facility], [address] [place] [address] Urine Appearance July 31, 2019 11:25am Clear CLEAR [facility], [address] [place] [address] 20919 Urine pH February 05, 2020 8:15pm 7.0 [facility], [address] [place] [address] 92503 Urine pH July 31, 2019 11:25am 8.0 [facility], [address] [place] [address] 70908 Urine Specific Etta January 8:15pm 1.008 [facility], [address] [place] [address] 97041 Urine Specific Etta July 30 11:25am 1.022 [facility], [address] [place] [address] 91950 Urine Leukocyte Esterase July 31, 2019 11:25am Negative NEGATIVE [facility], [address] [place] [address] 53578 Urine Leukocyte Esterase February 042019 8:15pm Negative NEGATIVE [facility], [address] [place] [address] 84171 Urine Nitrite July 31, 2019 11:25am Negative NEGATIVE [facility], [address] [place] [address] 58178 Urine Nitrate February 05, 2020 8:15pm Negative NEGATIVE [facility], [address] [place] [address] 74079 Urine Protein February 05, 2020 8:15pm Negative NEGATIVE [facility], [address] [place] [address] 09005 Urine Protein July 31, 2019 11:25am Negative NEGATIVE [facility], [address] [place] [address] 05319 Urine Glucose February 05, 2020 8:15pm Negative NEGATIVE [facility], [address] [place] [address] 09183 Urine Glucose July 31, 2019 11:25am Negative NEGATIVE [facility], [address] [place] [address] Urine Ketones February 05, 2020 8:15pm Trace NEGATIVE [facility], [address] [place] [address] 17927 Urine Ketones July 31, 2019 11:25am Negative NEGATIVE [facility], [address] [place] [address] 95849 Urine Urobilinogen February 04 8:15pm 0.2 eu/dl [facility], [address] [place] [address] 17939 Urine Urobilinogen July 31, 2019 11:25am 1 eu/dl [facility], [address] [place] [address] 41826 Urine Bilirubin February 05, 2020 8:15pm Negative NEGATIVE [facility], [address] [place] [address] 13650 Urine Bilirubin July 31, 2019 11:25am Negative NEGATIVE [facility], [address] [place] [address] 14529 Urine Blood July 31, 2019 11:25am Negative NEGATIVE [facility], [address] [place] [address] 33288 Urine Blood February 05, 2020 8:15pm Negative NEGATIVE [facility], [address] [place] [address] 97831 Microscopic Urinalysis Comment July 31, 2019 11:25am No [facility], [address] [place] [address] 35536 Add Urine Microanalysis January 8:15pm No [facility], [address] [place] [address] 86354 Blood Urea Nitrogen February 04 020 8:35pm 8 mg/dL 9 [facility], [address] [place] [address] Blood Urea Nitrogen January 31 020 2:22pm 6 mg/dL 9-23 [facility], [address] [place] [address] 96644 Blood Urea Nitrogen July 31, 2019 11:18a m 17 mg/dL 02-20 [facility], [address] [place] [address] 00398 Sodium Level February 05, 2020 8:35pm 137 mmol/L 132-146 [facility], [address] [place] [address] 59045 Sodium Level February 01, 2020 2:22pm 134 mmol/L 132-146 [facility], [address] [place] [address] 89013 Sodium Level July 31, 2019 11:18am 138 mmol/L 132-146 [facility], [address] [place] [address] 92656 Potassium Level February 05, 2020 8:35pm 3.7 mmol/L 3.5-5.5 [facility], [address] [place] [address] 69003 Potassium Level February 01, 2020 2:22pm 4.0 mmol/L 3.5-5.5 [facility], [address] [place] [address] 99684 Potassium Level July 31, 2019 11:18am 4.5 mmol/L 3.5-5.5 [facility], [address] [place] [address] 76852 Chloride Level February 05, 2020 8:35pm 105 mmol/l 99-109 [facility], [address] [place] [address] 39357 Chloride Level February 01, 2020 2:22pm 101 mmol/l 99-109 [facility], [address] [place] [address] 62442 Chloride Level July 31, 2019 11:18am 105 mmol/l 99-109 [facility], [address] [place] [address] 37210 Carbon Dioxide Level February 05, 2020 8:35pm 25 mmol/l 20-31 [facility], [address] [place] [address] 83105 Carbon Dioxide Level February 01, 2020 2:22pm 28 mmol/l 20-31 [facility], [address] [place] [address] 28924 Carbon Dioxide Level July 31, 2019 11:18am 28 mmol/l -31 [facility], [address] [place] [address] 35322 Anion Gap February 05, 2020 8:35pm 11 mmol/l 8-16 [facility], [address] [place] [address] 42486 Anion Gap February 01, 2020 2:22pm 9 mmol/l 8-16 [facility], [address] [place] [address] 82161 Anion Gap July 31, 2019 11:18am 10 mmol/l 8-16 [facility], [address] [place] [address] 31600 Glucose Level February 05, 2020 8:35pm 92 mg/dL 74-106 [facility], [address] [place] [address] Glucose Level February 01, 2020 2:22pm 92 mg/dL 74-106 [facility], [address] [place] [address] 61596 Glucose Level July 31, 2019 11:18am 97 mg/dL 74-106 [facility], [address] [place] [address] 90924 Creatinine February 05, 2020 8:35pm 0.7 mg/dL 0.5-1.1 [facility], [address] [place] [address] Creatinine February 01, 2020 2:22pm 0.9 mg/dL 0.5-1.1 [facility], [address] [place] [address] Creatinine July 31, 2019 11:18am 0.9 mg/dL 0.5-1.1 [facility], [address] [place] [id number] Glomerular Filtration Rate Calc Sept emb2019 8:35pm Greater than 60 ml/min ABOVE 60 [facility], [address] [place] [address] Glomerular Filtration Rate Calc Sept emb2019 2:22pm Greater than 60 ml/min ABOVE 60 [facility], [address] [place] [id number] Glomerular Filtration Rate Calc Martin 2019 11:18am Greater than 60 ml/min ABOVE 60 [facility], [address] [place] [address] Alanine Aminotransferase (ALT/SGPT) February 05, 2020 8:35pm 36 U/L 10-49 [facility], [address] [place] [address] Alanine Aminotransferase (ALT/SGPT) July 31, 2019 11:18am 44 U/L 10-49 [facility], [address] [place] [address] Aspartate Amino Transf (AST/SGOT) Se ptember 2019 8:35pm 22 U/L 0-33 [facility], [address] [place] [address] Aspartate Amino Transf (AST/SGOT) [facility] 2019 11:18am 20 U/L 0-33 [facility], [address] [place] [id number] Alkaline Phosphatase February 05, 2020 8:35pm 55 U/L 45-129 [facility], [address] [place] [id number] Alkaline Phosphatase July 31, 2019 11:18am 63 U/L 45-129 [facility], [address] [place] [id number] Calcium Level February 05, 2020 8:35pm 9.4 mg/dL 8.5-10.1 [facility], [address] [place] [id number] Calcium Level February 01, 2020 2:22pm 9.9 mg/dL 8.5-10.1 [facility], [address] [place] [address] Calcium Level July 31, 2019 11:18am 9.1 mg/dL 8.5-10.1 [facility], [address] [place] [address] 36619 Total Bilirubin February 05, 2020 8:35pm 0.7 mg/dL 0.3-1.2 [facility], [address] [place] [address] 42021 Total Bilirubin July 31, 2019 11:18am 1.0 mg/dL 0.3-1.2 [facility], [address] [place] [address] 34455 Albumin February 05, 2020 8:35pm 3.9 g/dL 3.2-4.8 [facility], [address] [place] [address] 86135 Albumin July 31, 2019 11:18am 4.1 g/dL 3.2-4.8 [facility], [address] [place] [address] 75886 Serum Total Protein February 04 020 8:35pm 6.6 g/dL 5.7-8.2 [facility], [address] [place] [address] 13851 Serum Total Protein July 31, 2019 11:18a m 7.1 g/dL 5.7-8.2 [facility], [address] [place] [address] 45784 Lactic Acid Level February 04 0 8:35pm 0.8 mmol/L 0.5-2.2 [facility], [address] [place] [address] 41699 Triglycerides Level July 31, 2019 11:18a m 174 mg/dL 0-150 [facility], [address] [place] [address] 50313 Cholesterol Level July 31, 2019 11:18am 212 mg/dL 120-200 [facility], [address] [place] [address] 24130 HDL Cholesterol July 31, 2019 11:18am 44 mg/dL HDL Less than 40 mg/dL: Major risk for CHDHDL Greater than 59 mg/dL: Low risk for CHD [facility], [address] [place] [address] 16549 LDL Cholesterol, Calculated July 11:18am 134 mg/dL 0-100 [facility], [address] [place] [address] 55509 Microbiology Results Procedure Source Result Collection Date/Time Result Date/Time Result Comment Performing Site Blood Culture Venous blood Micrococcus & Related Species February 07, 2020 7:01pm February 14, 2020 6:37am [facility], [address] [place], [place] [id number] Diagnostic Imaging Reports Report Dictated Date/Time Dictated By Status Radiology Report February 05, 2020 11:46pm Preston Lucas MD completed [place] [id number] [address] [place] [id number] [phone] NAME SEX PT STATUS ACCOUNT NUMBER [facility] ER [id number] ORDERING PHYSICIAN LOCATION MEDICAL RECORD NO. Skip Rutherford MD ER [id number] ATTENDING PHYSICIAN DATE OF DATE OF EXAM/TIME [...] MD on 02/05/202345 Date Time CC: Kelli Lucas MD Techn: RAULITO Romero Dt/Tm: Trans [...] PAIN, BACK PAIN Medication check Medication check Reason for Visit Lump in neck Umbilical hernia Umbilical hernia Depression Encounters Encounter Location(s) Ar rival/Admit Date Discharge/Depart Date Provider(s) Departed Physician/Provider Office Visit [facility] July 12, 2019 9:48am July 12, 2019 10:15am Kelli Mcmanus Registered Referred [facility] July 31, 2019 11:05am Kelli Mcmanus Departed Physician/Provider Office Visit [facility] October 19, 2019 8:56am October 19, 2019 9:31am Kelli Mcmanus Registered Outpatient [facility] Dermatology November 13, 2019 2:43pm null Registered Referred [facility] November 16, 2019 6:30pm Kelli Mcmanus Departed Physician/Provider Office Visit [facility] December 20, 2019 9:19am December 20, 2019 9:55am Kelli Mcmanus Departed Physician/Provider Office Visit [facility] General Surgery February 01, 2020 1:31pm February 01, 2020 2:13pm Naveed Hannon MD Registered Referred [facility] February 01, 2020 2:19pm Naveed Hannon MD Departed Emergency [facility] ER February 05, 2020 7:55pm February 06, 2020 12:37am null Registered Referred [facility] February 07, 2020 5:55pm [facility] Departed Physician/Provider Office Visit [facility] March 13, 2020 8:54am March 13, 2020 9:40am Kelli Mcmanus Departed Physician/Provider Office Visit [facility] April 04, 2020 10:04am April 04, 2020 10:33am Kelli Mcmanus Recent Diagnosis Onset Date Lump in neck Umbilical hernia Umbilical hernia Depression Assessments Diagnosis Onset Date Res olution Status Lump in neck resolved Umbilical hernia resolved Umbilical hernia resolved Depression acute Functional Status No Functional Status information available Goals Goals may be documented in an alternate section. Immunizations Immunization Event Date Not Given Reason Dose Number [employer] Lot Number Vaccine Information Statement (VIS) Deta il influenza vaccine, inactivated Octob er 2019 [id number] Mental Status Observation Response Kal e Recorded Impairments No impairments or barriers February 05, 2020 8:13pm Medical Equipment No Medical Equipment Information available Insurance Providers Guarantor Piper An Address [address] [place] [address] Contact Info. Home Phone: Payer Policy Id Coverage Id Subscriber's Name Subscriber Id Effective Date Expiration Date [employer] [id number] [employer] [id number] [employer] [id number] Pi[employer] [id number] [facility] [id number] [employer] [id number] [employer] [id number] [employer] [id number] Self Pay Self [facility] [id number] [employer] An [id number] Plan of Treatment He is doing well on new medications. He was seeing in [place], however, he is unable to be seen [...] with the operation. 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 He is taking 2 allergy medications already [...] Provider Address Juan Garcia MD Email: [email or web address] Phone: [phone] [facility] [phone] F32.9 - Major depressive disorder, singl e episode, unspecified,F41.9 - Anxiety disorder, unspecified April 04, 2020 [facility] [address] [facility] [address] D22.9 - Melanocytic nevi, unspecified December 20, 2019 D[facility]at[facility] [address] [facility] [address] Future Procedures Future procedure information is unavailable Future Medications Future medication information is unavailable Patient Instructions DASH Eating Plan (GEN) Hypertension (GEN) Social History Smoking Status Status Date of Observation Current every day smoker February 042019 9:21pm Observation Status Observation Response Kal e of Response Smoking Status Current every day smoker February 05, 2020 8:21pm Alcohol Use Yes Janemb r 2019 8:21pm Substance Use Yes 2019 [...]
--- OUTSIDE RECORDS SUMMARY | 2020-06-28 11:19 | CCD ---
Author Author [facility] Organization [facility] Address Unknown Phone Unavailable Care Team Providers Care Nurse Reviewer Name Role Phone Riddhi [phone] MD Naveed LOUIS Unavailable Unavailable Riddhi [id number] MD Naveed LOUIS Unavailable Unavailable Riddhi [phone] MD Naveed LOUIS Unavailable Unavailable CATARINO NAJERA Unavailable Unavailable MEDENT_[id number], [id number] Unavailable Unavailable Skip Rutherford MD Unavailable Unavailable Whitehall Falanga, A Johanna UNIVERSITY RELATIONS VICE PRESIDENT Unavailable Unavailable Amador Falanga, A Johanna UNIVERSITY RELATIONS VICE PRESIDENT Unavailable Unavailable Whitehall Falanga, A Johanna UNIVERSITY RELATIONS VICE PRESIDENT Unavailable Unavailable [place] Falanga, A Johanna UNIVERSITY RELATIONS VICE PRESIDENT Unavailable Unavailable [place]hall Falanga, A Johanna UNIVERSITY RELATIONS VICE PRESIDENT Unavailable Unavailable Amador Falanga, A Johanna UNIVERSITY RELATIONS VICE PRESIDENT Unavailable Unavailable Whitehall Falanga, A Johanna UNIVERSITY RELATIONS VICE PRESIDENT Unavailable Unavailable [place]hall Falanga, A Johanna UNIVERSITY RELATIONS VICE PRESIDENT Unavailable Unavailable Amador Falanga, A Johanna UNIVERSITY RELATIONS VICE PRESIDENT Unavailable Unavailable Whitehall Falanga, A Johanna UNIVERSITY RELATIONS VICE PRESIDENT Unavailable Unavailable Whitehall Falanga, A Johanna UNIVERSITY RELATIONS VICE PRESIDENT Unavailable Unavailable Whitehall Falanga, A Johanna UNIVERSITY RELATIONS VICE PRESIDENT Unavailable Unavailable Amador Falanga, A Johanna UNIVERSITY RELATIONS VICE PRESIDENT Unavailable Unavailable Whitehall Falanga, A Johanna UNIVERSITY RELATIONS VICE PRESIDENT Unavailable Unavailable Amador Falanga, A Johanna UNIVERSITY RELATIONS VICE PRESIDENT Unavailable Unavailable Amador Falanga, A Johanna UNIVERSITY RELATIONS VICE PRESIDENT Unavailable Unavailable Whitehall Falanga, A Johanna UNIVERSITY RELATIONS VICE PRESIDENT Unavailable Unavailable Amador Falanga, A Johanna UNIVERSITY RELATIONS VICE PRESIDENT Unavailable Unavailable Whitehall Falanga, A Johanna UNIVERSITY RELATIONS VICE PRESIDENT Unavailable Unavailable Amador Falanga, A Johanna UNIVERSITY RELATIONS VICE PRESIDENT Unavailable Unavailable Whitehall Falanga, A Johanna UNIVERSITY RELATIONS VICE PRESIDENT Unavailable Unavailable Whitehall Falanga, A Johanna UNIVERSITY RELATIONS VICE PRESIDENT Unavailable Unavailable Amador Falanga, A Johanna UNIVERSITY RELATIONS VICE PRESIDENT Unavailable Unavailable Amador Falanga, A Johanna UNIVERSITY RELATIONS VICE PRESIDENT Unavailable Unavailable Whitehall Falanga, A Johanna UNIVERSITY RELATIONS VICE PRESIDENT Unavailable Unavailable Amador Falanga, A Johanna UNIVERSITY RELATIONS VICE PRESIDENT Unavailable Unavailable Amador Falanga, A Johanna UNIVERSITY RELATIONS VICE PRESIDENT Unavailable Unavailable Whitehall Falanga, A Johanna UNIVERSITY RELATIONS VICE PRESIDENT Unavailable Unavailable Whitehall Falanga, A Johanna UNIVERSITY RELATIONS VICE PRESIDENT Unavailable Unavailable Whitehall Falanga, A Johanna UNIVERSITY RELATIONS VICE PRESIDENT Unavailable Unavailable ANTONIA FRAZIER MD Unavailable Unavailable ANTONIA FRAZIER MD Unavailable Unavailable ANTONIA FRAZIER MD Unavailable Unavailable ANTONIA FRAZIER MD Unavailable Unavailable ANTONIA FRAZIER MD Unavailable Unavailable ANTONIA FRAZIER MD Unavailable Unavailable ANTONIA FRAZIER MD Unavailable Unavailable AMERNATH, ANTONIA LOUIS Unavailable Unavailable AMERNATH, ANTONIA LOUIS Unavailable Unavailable AMERNATH, ANTONIA LOUIS Unavailable Unavailable AMERNATH, ANTONIA LOUIS Unavailable Unavailable AMERNATH, ANTONIA LOUIS Unavailable Unavailable ROSALES ., MAGDA DO Unavailable Unavailable ROSALES ., MAGDA DO Unavailable Unavailable Dylan, Jorge Luis Biggs MD Unavailable Unavailable Dylan, Jorge Luis Biggs MD Unavailable Unavailable Dylan, Jorge Luis Biggs MD Unavailable Unavailable Dylan, Jorge Luis Biggs MD Unavailable Unavailable Dylan, Jorge Luis Biggs MD Unavailable Unavailable Dylan, Jorge Luis Biggs MD Unavailable Unavailable Dylan, Jorge Luis Biggs MD Unavailable Unavailable Dylan, Jorge Luis Biggs MD Unavailable Unavailable Dylan, Jorge Luis Biggs MD Unavailable Unavailable Dylan, Jorge Luis Biggs MD Unavailable Unavailable Dylan, Jorge Luis Biggs MD Unavailable Unavailable Dylan, Jorge Luis Biggs MD Unavailable Unavailable Dylan, Jorge Luis Biggs MD Unavailable Unavailable Dylan, Jorge Luis Biggs MD Unavailable Unavailable Dylan, Jorge Luis Biggs MD Unavailable Unavailable Dylan, Jorge Luis Biggs MD Unavailable Unavailable Dylan, Jorge Luis Biggs MD Unavailable Unavailable Dylan, Jorge Luis Biggs MD Unavailable Unavailable Dylan, Jorge Luis Biggs MD Unavailable Unavailable Dylan, Jorge Luis Biggs MD Unavailable Unavailable Dylan, Jorge Luis Biggs MD Unavailable Unavailable Dylan, Jorge Luis Biggs MD Unavailable Unavailable Dylan, Jorge Luis Biggs MD Unavailable Unavailable Dylan, Jorge Luis Biggs MD Unavailable Unavailable Dylan, Jorge Luis Biggs MD Unavailable Unavailable Dylan, Jorge Luis Biggs MD Unavailable Unavailable Dylan, Jorge Luis Biggs MD Unavailable Unavailable Dylan, Jorge Luis Biggs MD Unavailable Unavailable Dylan, Jorge Luis Biggs MD Unavailable Unavailable Dylan, Jorge Luis Biggs MD Unavailable Unavailable Dylan, Jorge Luis Biggs MD Unavailable Unavailable Dylan, Jorge Luis Biggs MD Unavailable Unavailable Dylan, Jorge Luis Biggs MD Unavailable Unavailable Dylan, Jorge Luis Biggs MD Unavailable Unavailable Dylan, Jorge Luis Biggs MD Unavailable Unavailable Dylan, Jorge Luis Biggs MD Unavailable Unavailable Dylan, Jorge Luis Biggs MD Unavailable Unavailable Dylan, Jorge Luis Biggs MD Unavailable Unavailable Dylan, Jorge Luis Biggs MD Unavailable Unavailable Dylan, Jorge Luis Biggs MD Unavailable Unavailable Dylan, Jorge Luis Biggs MD Unavailable Unavailable Dylan, Jorge Luis Biggs MD Unavailable Unavailable Dylan, Jorge Luis Biggs MD Unavailable Unavailable Dylan, Jorge Luis Biggs MD Unavailable Unavailable Yonathan, A Kelli SLIP COVER MAKER Unavailable Unavailable Yonathan, A Kelli SLIP COVER MAKER Unavailable Unavailable Yonathan, A Kelli SLIP COVER MAKER Unavailable Unavailable Yonathan, A Kelli SLIP COVER MAKER Unavailable Unavailable Yonathan, A Kelli SLIP COVER MAKER Unavailable Unavailable Yonathan, A Kelli SLIP COVER MAKER Unavailable Unavailable Yonathan, A Kelli SLIP COVER MAKER Unavailable Unavailable Yonathan, A Kelli SLIP COVER MAKER Unavailable Unavailable Yonathan, A Kelli SLIP COVER MAKER Unavailable Unavailable Yonathan, A Kelli SLIP COVER MAKER Unavailable Unavailable Yonathan, A Kelli SLIP COVER MAKER Unavailable Unavailable Yonathan, A Kelli SLIP COVER MAKER Unavailable Unavailable Yonathan, A Kelli SLIP COVER MAKER Unavailable Unavailable Yonathan, A Kelli SLIP COVER MAKER Unavailable Unavailable Yonathan, A Kelli SLIP COVER MAKER Unavailable Unavailable Yonathan, A Kelli SLIP COVER MAKER Unavailable Unavailable Yonathan, A Kelli SLIP COVER MAKER Unavailable Unavailable Yonathan, A Kelli SLIP COVER MAKER Unavailable Unavailable Yonathan, A Kelli SLIP COVER MAKER Unavailable Unavailable Yonathan, A Kelli SLIP COVER MAKER Unavailable Unavailable Yonathan, A Kelli SLIP COVER MAKER Unavailable Unavailable Yonathan, A Kelli SLIP COVER MAKER Unavailable Unavailable Yonathan, A Kelli SLIP COVER MAKER Unavailable Unavailable Yonathan, A Kelli SLIP COVER MAKER Unavailable Unavailable Yonathan, A Kelli SLIP COVER MAKER Unavailable Unavailable Yonathan, A Kelli SLIP COVER MAKER Unavailable Unavailable Yonathan, A Kelli SLIP COVER MAKER Unavailable Unavailable Yonathan, A Kelli SLIP COVER MAKER Unavailable Unavailable Yonathan, A Kelli SLIP COVER MAKER Unavailable Unavailable Yonathan, A Kelli SLIP COVER MAKER Unavailable Unavailable Yonathan, A Kelli SLIP COVER MAKER Unavailable Unavailable Yonathan, A Kelli SLIP COVER MAKER Unavailable Unavailable Yonathan, A Kelli SLIP COVER MAKER Unavailable Unavailable Yonathan, A Kelli SLIP COVER MAKER Unavailable Unavailable Yonathan, A Kelli SLIP COVER MAKER Unavailable Unavailable Yonathan, A Kelli SLIP COVER MAKER Unavailable Unavailable Yonathan, A Kelli SLIP COVER MAKER Unavailable Unavailable Yonathan, A Kelli SLIP COVER MAKER Unavailable Unavailable Yonathan, A Kelli SLIP COVER MAKER Unavailable Unavailable Yonathan, A Kelli SLIP COVER MAKER Unavailable Unavailable Yonathan, A Kelli SLIP COVER MAKER Unavailable Unavailable Yonathan, A Kelli SLIP COVER MAKER Unavailable Unavailable Yonathan, A Kelli SLIP COVER MAKER Unavailable Unavailable Yonathan, A Kelli SLIP COVER MAKER Unavailable Unavailable Yonathan, A Kelli SLIP COVER MAKER Unavailable Unavailable Yonathan, A Kelli SLIP COVER MAKER Unavailable Unavailable Yonathan, A Kelli SLIP COVER MAKER Unavailable Unavailable Yonathan, A Kelli SLIP COVER MAKER Unavailable Unavailable Yonathan, A Kelli SLIP COVER MAKER Unavailable Unavailable Yonathan, A Kelli SLIP COVER MAKER Unavailable Unavailable Yonathan, A Kelli SLIP COVER MAKER Unavailable Unavailable Yonathan, A Kelli SLIP COVER MAKER Unavailable Unavailable Yonathan, A Kelli SLIP COVER MAKER Unavailable Unavailable Yonathan, A Kelli SLIP COVER MAKER Unavailable Unavailable Yonathan, A Kelli SLIP COVER MAKER Unavailable Unavailable Yonathan, A Kelli SLIP COVER MAKER Unavailable Unavailable Yonathan, A Kelli SLIP COVER MAKER Unavailable Unavailable Yonathan, A Kelli SLIP COVER MAKER Unavailable Unavailable Yonathan, A Kelli SLIP COVER MAKER Unavailable Unavailable Yonathan, A Kelli SLIP COVER MAKER Unavailable Unavailable Yonathan, A Kelli SLIP COVER MAKER Unavailable Unavailable Yonathan, A Kelli SLIP COVER MAKER Unavailable Unavailable Yonathan, A Kelli SLIP COVER MAKER Unavailable Unavailable Yonathan, A Kelli SLIP COVER MAKER Unavailable Unavailable Yonathan, A Kelli SLIP COVER MAKER Unavailable Unavailable Yonathan, A Kelli SLIP COVER MAKER Unavailable Unavailable Yonathan, A Kelli SLIP COVER MAKER Unavailable Unavailable Yonathan, A Kelli SLIP COVER MAKER Unavailable Unavailable Yonathan, A Kelli SLIP COVER MAKER Unavailable Unavailable Yonathan, A Kelli SLIP COVER MAKER Unavailable Unavailable Yonathan, A Kelli SLIP COVER MAKER Unavailable Unavailable Yonathan, A Kelli SLIP COVER MAKER Unavailable Unavailable Yonathan, A Kelli SLIP COVER MAKER Unavailable Unavailable Yonathan, A Kelli SLIP COVER MAKER Unavailable Unavailable Yonathan, A Kelli SLIP COVER MAKER Unavailable Unavailable Yonathan, A Kelli SLIP COVER MAKER Unavailable Unavailable Alcon Abarca MD Unavailable Unavailable Althouse, Mirian SLIP COVER MAKER Unavailable Unavailable DORRER, RPA P EB PA Unavailable Unavailable DORRER, RPA P EB PA Unavailable Unavailable DORRER, RPA P EB PA Unavailable Unavailable CHANCE WELCH MD Unavailable Unavailable CHROSTCHANCE SOLOMON MD Unavailable Unavailable CHROSTCHANCE SOLOMON MD Unavailable Unavailable CHROSTCHANCE SOLOMON MD Unavailable Unavailable HECTOROSTCHANCE SOLOMON MD Unavailable Unavailable HECTOROSTCHANCE SOLOMON MD Unavailable Unavailable CHROSTCHANCE SOLOMON MD Unavailable Unavailable CHROSTCHANCE SOLOMON MD Unavailable Unavailable CHROSTCHANCE SOLOMON MD Unavailable Unavailable CHROSTCHANCE SOLOMON MD Unavailable Unavailable CHROSTCHANCE OSLOMON MD Unavailable Unavailable CHROSTCHANCE SOLOMON MD Unavailable Unavailable CHROSTCHANCE SOLOMON MD Unavailable Unavailable CHROSTCHANCE SOLOMON MD Unavailable Unavailable CHROSTCHANCE SOLOMON MD Unavailable Unavailable CHROSTCHANCE SOLOMON MD Unavailable Unavailable CHROSTCHANCE SOLOMON MD Unavailable Unavailable HECTOROSTCHANCE SOLOMON MD Unavailable Unavailable HECTOROSTCHANCE SOLOMON MD Unavailable Unavailable CHROSTCHANCE SOLOMON MD Unavailable Unavailable HECTOROSTCHANCE SOLOMON MD Unavailable Unavailable HECTOROSTCHANCE SOLOMON MD Unavailable Unavailable HECTOROSTCHANCE SOLOMON MD Unavailable Unavailable CHROSTCHANCE SOLOMON MD Unavailable Unavailable HECTOROSTCHANCE SOLOMON MD Unavailable Unavailable CHROSTCHANCE SOLOMON MD Unavailable Unavailable CHROSTCHANCE SOLOMON MD Unavailable Unavailable CHROSTOWSKI, CHANCE MD Unavailable Unavailable CHANCE WELCH MD Unavailable Unavailable CHANCE WELCH MD Unavailable Unavailable CHANCE WELCH MD Unavailable Unavailable CHANCE WELCH MD Unavailable Unavailable CHANCE WELCH MD Unavailable Unavailable CHANCE WELCH MD Unavailable Unavailable CHANCE WELCH MD Unavailable Unavailable CHANCE WELCH MD Unavailable Unavailable CHANCE WELCH MD Unavailable Unavailable CHANCE WELCH MD Unavailable Unavailable CHANCE WELCH MD Unavailable Unavailable CHANCE WELCH MD Unavailable Unavailable Stefano Jennings MD Unavailable Unavailable Stefano Jennings MD Unavailable Unavailable Stefano Jennings MD Unavailable Unavailable Stefano Jennings MD Unavailable Unavailable Setfano Jennings MD Unavailable Unavailable Stefano Jennings MD Unavailable Unavailable Stefano Jennings MD Unavailable Unavailable Stefano Jennings MD Unavailable Unavailable Stefano Jennings MD Unavailable Unavailable Stefano Jennings MD Unavailable Unavailable Stefano Jennings MD Unavailable Unavailable Stefano Jennings MD Unavailable Unavailable Stefano Jennings MD Unavailable Unavailable Stefano Jennings MD Unavailable Stefano Mansfield MD Unavailable Unavailable Stefano Jennings MD Unavailable Unavailable Stefano Jennings MD Unavailable Unavailable Stefano Jennings MD Unavailable Unavailable Stefano Jennings MD Unavailable Unavailable Stefano Jennings MD Unavailable Unavailable Stefano Jennings MD Unavailable Unavailable Stefano Jennings MD Unavailable Unavailable Stefano Jennings MD Unavailable Unavailable Stefano Jennings MD Unavailable Unavailable Stefano Jennings MD Unavailable Unavailable Stefano Jennings MD Unavailable Unavailable Stefano Jennings MD Unavailable Unavailable Stefano Jennings MD Unavailable Stefano Mansfield MD Unavailable Stefano Mansfield MD Unavailable Unavailable Stefano Jennings MD Unavailable Unavailable Stefano Jennings MD Unavailable Unavailable Stefano Jennings MD Unavailable Unavailable Stefano Jennings MD Unavailable Unavailable Stefano Jennings MD Unavailable Unavailable Stefano Jennings MD Unavailable Unavailable Stefano Jennings MD Unavailable Unavailable Stefano Jennings MD Unavailable Unavailable Stefano Jennings MD Unavailable Unavailable Stefano Jennings MD Unavailable Unavailable Stefano Jennings MD Unavailable Unavailable Stefano Jennings MD Unavailable Unavailable Stefano Jennings MD Unavailable Unavailable Stefano Jennings MD Unavailable Unavailable Stefano Jennings MD Unavailable Unavailable Stefano Jennings MD Unavailable Unavailable Stefano Jennings MD Unavailable Unavailable Stefano Jennings MD Unavailable Unavailable Stefano Jennings MD Unavailable Unavailable Stefano Jennings MD Unavailable Unavailable Stefano Jennings MD Unavailable Unavailable TRIVEDI, J ARELI PA Unavailable Unavailable TRIVEDI, J ARELI PA Unavailable Unavailable TRIVEDI, J ARELI PA Unavailable Unavailable TRIVEDI, J ARELI PA Unavailable Unavailable TRIVEDI, J ARELI PA Unavailable Unavailable TRIVEDI, J ARELI PA Unavailable Unavailable TRIVEDI, J ARELI PA Unavailable Unavailable TRIVEDI, J ARELI PA Unavailable Unavailable TRIVEDI, J ARELI PA Unavailable Unavailable TRIVEDI, J ARELI PA Unavailable Unavailable TRIVEDI, J ARELI PA Unavailable Unavailable TRIVEDI, J ARELI PA Unavailable Unavailable TRIVEDI, J ARELI PA Unavailable Unavailable TRIVEDI, J ARELI PA Unavailable Unavailable TRIVEDI, J ARELI PA Unavailable Unavailable TRIVEDI, J ARELI PA Unavailable Unavailable TRIVEDI, J ARELI PA Unavailable Unavailable TRIVEDI, J ARELI PA Unavailable Unavailable TRIVEDI, J ARELI PA Unavailable Unavailable TRIVEDI, J ARELI PA Unavailable Unavailable TRIVEDI, J ARELI PA Unavailable Unavailable TRIVEDI, J ARELI PA Unavailable Unavailable TRIVEDI, J ARELI PA Unavailable Unavailable TRIVEDI, J ARELI PA Unavailable Unavailable TRIVEDI, J ARELI PA Unavailable Unavailable TRIVEDI, J ARELI PA Unavailable Unavailable TRIVEDI, J ARELI PA Unavailable Unavailable EVANGELINA, JEANETTE Unavailable Unavailable Jorge Luis Richardson MD Unavailable Unavailable Jorge Luis Richardson MD Unavailable Unavailable Jorge Luis Richardson MD Unavailable Unavailable Jorge Luis Richardson MD Unavailable Unavailable Jorge Luis Richardson MD Unavailable Unavailable Jorge Luis Richardson MD Unavailable Unavailable Jorge Luis Richardson MD Unavailable Unavailable Jorge Luis Richardson MD Unavailable Unavailable Jorge Luis Richardson MD Unavailable Unavailable Jorge Luis Richardson MD Unavailable Unavailable Jorge Luis Richardson MD Unavailable Unavailable Jorge Luis Richardson MD Unavailable Unavailable Jorge Luis Richardson MD Unavailable Unavailable Jorge Luis Richardson MD Unavailable Unavailable Jorge Luis Richardson MD Unavailable Unavailable Jorge Luis Richardson MD Unavailable Unavailable Jorge Luis Richardson MD Unavailable Unavailable Jorge Luis Richardson MD Unavailable Unavailable Jorge Luis Richardson MD Unavailable Unavailable Dylan, F Aklyan MD Unavailable Unavailable Dylan, F Kalyan MD Unavailable Unavailable Dylan, F Kalyan MD Unavailable Unavailable Dylan, F Kalyan MD Unavailable Unavailable Dylan, F Kalyan MD Unavailable Unavailable Dylan, F Kalyan MD Unavailable Unavailable Dylan, F Kalyan MD Unavailable Unavailable Dylan, F Kalyan MD Unavailable Unavailable Dylan, F Kalyan MD Unavailable Unavailable Dylan, F Kalyan MD Unavailable Unavailable Dylan, F Kalyan MD Unavailable Unavailable Dylan, F Kalyan MD Unavailable Unavailable Dylan, F Kalyan MD Unavailable Unavailable Dylan, F Kalyan MD Unavailable Unavailable Dylan, F Kalyan MD Unavailable Unavailable Dylan, F Kalyan MD Unavailable Unavailable Dylan, F Kalyan MD Unavailable Unavailable Dylan, F Kalyan MD Unavailable Unavailable Dylan, F Kalyan MD Unavailable Unavailable Dylan, F Kalyan MD Unavailable Unavailable Dylan, F Kalyan MD Unavailable Unavailable Dylan, F Kalyan MD Unavailable Unavailable Dylan, F Kalyan MD Unavailable Unavailable Dylan, F Kalyan MD Unavailable Unavailable Dylan, F Kalyan MD Unavailable Unavailable REMA, L PHILLIP MD Unavailable Unavailable REMA, L PHILLIP MD Unavailable Unavailable REMA, L PHILLIP MD Unavailable Unavailable REMA, L PHILLIP MD Unavailable Unavailable REMA, L PHILLIP MD Unavailable Unavailable REMA, L PHILLIP MD Unavailable Unavailable REMA, L PHILLIP MD Unavailable Unavailable REMA, L PHILLIP MD Unavailable Unavailable REMA, L PHILLIP MD Unavailable Unavailable REMA, L PHILLIP MD Unavailable Unavailable REMA, L PHILLIP MD Unavailable Unavailable REMA, L PHILLIP MD Unavailable Unavailable REMA, L PHILLIP MD Unavailable Unavailable REMA, L PHILLIP MD Unavailable Unavailable REMA, L PHILLIP MD Unavailable Unavailable REMA, L PHILLIP MD Unavailable Unavailable REMA, L PHILLIP MD Unavailable Unavailable REMA, L PHILLIP MD Unavailable Unavailable REMA, L PHILLIP MD Unavailable Unavailable REMA, L PHILLIP MD Unavailable Unavailable REMA, L PHILLIP MD Unavailable Unavailable REMA, L PHILLIP MD Unavailable Unavailable REMA, L PHILLIP MD Unavailable Unavailable Eb Becker Unavailable Unavailable Re-disclosure Warning The records that you are about to access may contain information from federally-assisted alcohol or drug abuse programs. If such information is present, then the following federally mandated warning applies: This information has been disclosed to you from records protected by federal confidentiality rules (42 CFR part 2). The federal rules prohibit you from making any further disclosure of this information unless further disclosure is expressly permitted by the written consent of the person to whom it pertains or as otherwise permitted by 42 CFR part 2. A general authorization for the release of medical or other information is NOT sufficient for this purpose. The Federal rules restrict any use of the information to criminally investigate or prosecute any alcohol or drug abuse patient.The records that you are about to access may contain highly sensitive health information, the redisclosure of which is protected by Article 27-F of the [place] Public [employer] law. If you continue you may have access to information: Regarding HIV / AIDS; Provided by facilities licensed or operated by the [place] Office of Mental Health; or Provided by the [place] Office for People With Developmental Disabilities. If such information is present, then the following [place] mandated warning applies: This information has been disclosed to you from confidential records which are protected by state law. State law prohibits you from making any further disclosure of this information without the specific written consent of the person to whom it pertains, or as otherwise permitted by law. Any unauthorized further disclosure in violation of state law may result in a fine or usp sentence or both. A general authorization for the release of medical or other information is NOT sufficient authorization for further disc losure. Allergies and Adverse Reactions Type Description Substance Reaction Status Data Source(s ) No Known Drug Allergies No Known Drug Allergies [facility] Drug allergy No Known Allergies [facility] weed builds up eye drainage, post nasal d rip [facility] dust mites dust mites builds up drainage in eyes , post na makenna drip [facility] Drug allergy No Known Drug Allergies No Known Drug Allergies [facility] Drug Allergy Drug Allergy [facility] ([facility]) Encounters Encounter Providers Location Date Indications Data Source(s ) Outpatient Attender: Kelli Mcmanus NP 06/21/2020 05:56:00 PM [facility] Outpatient Attender: Kelli Mcmanus NPReferrer: Kelli castro NP 06/21/2020 09:36:00 AM [facility] Outpatient Attender: JEANETTE MAGANANTConsultant: Kelli Araiza P 06/13/2020 08:02:00 AM EST - 06/13/2020 08:02:00 AM [facility] Outpatient Attender: JEANETTE DURANTConsultant: Kelli Araiza P 06/06/2020 01:55:00 PM EST - 06/06/2020 01:55:00 PM [facility] Outpatient Attender: Kelli Mcmanus NPReferrer: Kelli castro SLIP COVER MAKER 06/04/2020 01:14:00 PM EST - 06/04/2020 01:47:00 PM EST [facility] Outpatient Attender: JEANETTE DURANTConsultant: Kelli Araiza P 05/28/2020 08:54:00 AM EST - 05/28/2020 08:54:00 AM [facility] Outpatient Attender: JEANETTE DURANTConsultant: Kelli Araiza P 05/20/2020 11:55:00 AM EST - 05/20/2020 11:55:00 AM [facility] Outpatient Attender: JEANETTE DURANTConsultant: Kelli Araiza P 05/08/2020 07:54:00 AM EST - 05/08/2020 07:54:00 AM [facility] Outpatient Attender: Kelli Mcmanus NPReferrer: Kelli castro SLIP COVER MAKER 05/07/2020 10:55:00 AM EST - 05/07/2020 11:28:00 AM [facility] Outpatient Attender: ARELI Yu tender: JEANETTE DURANTConsultant: Kelli Mcmanus NP 05/06/2020 10:34:00 AM EST - 05/06/2020 10:34:00 AM [facility] Outpatient Attender: [id number] [id number] 05/06/2020 10:00:00 AM EST [facility] Outpatient Attender: JEANETTE DURANTConsultant: Kelli Araiza P 05/03/2020 08:55:00 AM EST - 05/03/2020 08:55:00 AM [facility] Outpatient Attender: Kelli Mcmanus NPReferrer: Kelli castro SLIP COVER MAKER 04/24/2020 11:39:00 AM EST - 04/24/2020 11:50:00 AM [facility] Outpatient Attender: CATARINO DANIAConsultant: Kelli castro SLIP COVER MAKER 04/18/2020 12:36:00 PM EST - 04/18/2020 12:36:00 PM EST [facility] Outpatient Attender: Kelli Mcmanus SLIP COVER MAKER 04/04/2020 10:35:00 AM EST R79.89 [facility] R79.89 Outpatient Attender: Kelli Mcmanus NPReferrer: Kelli castro SLIP COVER MAKER 04/04/2020 10:04:00 AM EST - 04/04/2020 10:33:00 AM EST [facility] Outpatient Attender: Kelli Mcmanus NPReferrer: Kelli castro SLIP COVER MAKER 03/13/2020 09:54:00 AM EDT - 03/13/2020 10:40:00 AM EDT [facility] Outpatient Attender: Eb MARTEL 03/04/2020 04: 45:00 PM EDT Neoplasm of uncertain behavior of skin [facility] Neoplasm of uncertain behavior of skin Outpatient Attender: PRIMITIVO MARTEL TECH M-LAB.NONPAR 03/04/2020 02:51:00 PM EDT - 03/06/2020 12:00:00 AM EDT [facility] NONPAR Preadmit Attender: [id number] Naveed Hannon MD 020 12:00:00 AM EDT K42.9/99583 [facility] K42.9/10125 Outpatient Attender: Elton Jennings MD 02/12/2020 02:20:00 AM EDT 941 [facility] 941 Eval Inpatient Attender: Alcon Abarca MDAttender: MAGDA [facility] .Admitter: Alcon Abarca MD 02/12/2020 12:00:00 AM EDT - 02/16/2020 11:37:00 AM EDT 941 [facility] 941 Eval Patient discharged. Outpatient Attender: Mirian Araiza PAdmitter: Alcon Abarca MDConsultant: Alcon Abarca MD 02/12/2020 12:00:00 AM EDT 941 [facility] 941 Eval Outpatient Attender: Mirian Owener: Alcon Colon MDConsultant: Alcon Abarca MD 02/12/2020 12:00:00 AM EDT 941 [facility] 941 [facility] Eval Outpatient Attender: Alcon Abarca MDAdmit ter: Alcon Colon MDConsultant: Alcon Colon 02/12/2020 12:00:00 AM EDT 941 [facility] 941 [facility] Eval Outpatient Attender: Mirian Araiza PAdmitter: Alcon Colon MDConsultant: Alcon Abarca MD 02/12/2020 12:00:00 AM EDT 941 [facility] 941 M[facility] Eval Outpatient 02/07/2020 06:55:00 PM EDT [facility] Outpatient Attender: Johanna melissa FNPAttender: PHILLIP HODGSON MDReferrer: Kalyan Richarsdon MDConsultant: Kelli Mcmanus NP 02/07/2020 06:08:00 PM EDT - 02/08/2020 12:00:00 PM EDT [facility] Patient discharged. Outpatient Attender: Kalyan Richardson MDConsultant: Kelli valladares NP 02/06/2020 02:30:00 PM EDT - 02/06/2020 06:15:00 PM EDT [facility] Patient discharged. Outpatient Attender: Kalyan Richardson MD [facility] 02/06/2020 1 1:30:00 AM EDT [facility] ([facility]) Outpatient Attender: Kalyan Richardson MDConsultant: Kelli valladares NP 02/06/2020 10:51:00 AM EDT - 02/06/2020 10:51:00 AM EDT [facility] Emergency Attender: Skip Rutherford MD 11/2019 08:55:00 PM EDT - 02/06/2020 01:37:00 AM EDT [facility] Patient discharged. Outpatient Attender: [id number] Naveed Hannon MD 03:19:00 PM EDT PRE OP/K42.9 [facility] PRE OP/K42.9 Outpatient Attender: [id number] Naveed Hannon MDReferrer: Veda Mcmanus SLIP COVER MAKER 02/01/2020 02:31:00 PM EDT - 02/01/2020 03:13:00 PM EDT [facility] Outpatient Attender: Kelli Mcmanus NPReferrer: Kelli castro SLIP COVER MAKER 12/20/2019 10:19:00 AM EDT [facility] Attender: Kelli Mcmanus NP 11/16/2019 07: 30:00 PM EDT Snoring, Excessive Daytime Sleepiness, Anpea, HTN [facility] Snoring, Excessive Daytime Sleepiness, A npea, HTN Outpatient Attender: CHANCE WELCH MD Main Office 11/09/2019 01:15:00 PM EDT [facility] Outpatient Attender: Kelli Mcmanus NPReferrer: Kelli castro SLIP COVER MAKER 10/19/2019 09:56:00 AM EDT - 10/19/2019 10:31:00 AM EDT [facility] Outpatient Attender: Kelli Mcmanus NP 07/31/2019 11:05:00 AM EST Z00.00,I10 [facility] Z00.00,I10 Outpatient Attender: Kelli Mcmanus NPReferrer: Kelli castro NP 07/12/2019 09:48:00 AM EST - 07/12/2019 10:15:00 AM EST [facility] Emergency Attender: ANTONIA FRAZIER MDConsultant: Kelli Mcmanus NP 05/29/2019 01:24:00 PM EST - 05/29/2019 04:17:00 PM [facility] Patient discharged. Immunizations Vaccine Date Status Description Data Source(s) IIV3. This is one of two codes replacing CVX 15, which is being retired. 03/13/2020 12:00:00 AM EDT completed influenza vaccine, inactivated [facility] IIV3. This is one of two codes replacing CVX 15, which is being retired. 03/13/2020 12:00:00 AM EDT completed influenza vaccine, inactivated [facility] IIV3. This is one of two codes replacing CVX 15, which is being retired. 03/13/2020 12:00:00 AM EDT completed influenza vaccine, inactivated [facility] IIV3. This is one of two codes replacing CVX 15, which is being retired. 03/13/2020 12:00:00 AM EDT completed influenza vaccine, inactivated [facility] IIV3. This is one of two codes replacing CVX 15, which is being retired. 03/13/2020 12:00:00 AM EDT completed influenza vaccine, inactivated [facility] Medications Medication Brand Name Start Date Product Form Dose Route Admi nistrative Instructions Pharmacy Instructions Status Indications Reaction Description Data Source(s) Amoxicillin 875 MG / Clavulanate 125 MG Oral Tablet Am oxicillin-Pot Clavulanate Amoxicillin-Pot Clavulanate 06/21/2020 09:36:59 AM EST 1 TAB active [facility] Testosterone Cypionate 06/04/2020 02:26:38 PM EST 200 MG active [facility] Clonazepam 0.5 MG Oral Tablet Clonazepam 06/04/2020 02:26:33 PM EST 0.5 MG active [facility] olanzapine 10 MG Oral Tablet Olanzapine Olanzapine 06/04/2020 01: 20:44 PM EST 20 MG active [facility] olanzapine 10 MG Oral Tablet Olanzapine Olanzapine 06/04/2020 01: 20:44 PM EST 20 MG active [facility] Clonazepam 0.5 MG Oral Tablet Clonazepam 05/07/2020 01:11:14 PM EST 0.5 MG completed [facility] Clonazepam 0.5 MG Oral Tablet Clonazepam 05/07/2020 01:11:14 PM EST 0.5 MG active [facility] Testosterone Cypionate 05/07/2020 01:04:59 PM EST 200 MG completed [facility] Testosterone Cypionate 05/07/2020 01:04:59 PM EST 200 MG active [facility] Sertraline 100 MG Oral Tablet Sertraline 05/07/2020 11:19:59 AM EST 100 MG active [facility] Sertraline 100 MG Oral Tablet Sertraline 05/07/2020 11:19:59 AM EST 100 MG active [facility] Sertraline 100 MG Oral Tablet Sertraline 05/07/2020 11:19:59 AM EST 100 MG active [facility] Sertraline 50 MG Oral Tablet Sertraline 05/07/2020 11:19:08 AM EST 50 MG active [facility] Sertraline 50 MG Oral Tablet Sertraline 05/07/2020 11:19:08 AM EST 50 MG active [facility] Sertraline 50 MG Oral Tablet Sertraline 05/07/2020 11:19:08 AM EST 50 MG active [facility] olanzapine 10 MG Oral Tablet Olanzapine Olanzapine 05/07/2020 11: 17:30 AM EST 10 MG active [facility] olanzapine 10 MG Oral Tablet Olanzapine Olanzapine 05/07/2020 11: 17:30 AM EST 10 MG completed [facility] olanzapine 10 MG Oral Tablet Olanzapine Olanzapine 05/07/2020 11: 17:30 AM EST 10 MG completed [facility] Testosterone Cypionate 04/11/2020 09:46:30 AM EST 200 MG completed [facility] Testosterone Cypionate 04/11/2020 09:46:30 AM EST 200 MG completed [facility] Testosterone Cypionate 04/11/2020 09:46:30 AM EST 200 MG active [facility] Testosterone Cypionate 04/11/2020 09:46:30 AM EST 200 MG active [facility] Syringe (Disposable) (Bd Luer-Yanira Tip Control Syring) 10 mL syringe 04/11/2020 09:46:20 AM EST 1 EACH active [facility] Syringe (Disposable) (Bd Luer-Yanira Tip Control Syring) 10 mL syringe 04/11/2020 09:46:20 AM EST 1 EACH active [facility] Syringe (Disposable) (Bd Luer-Yanira Tip Control Syring) 10 mL syringe 04/11/2020 09:46:20 AM EST 1 EACH completed [facility] Syringe (Disposable) (Bd Luer-Yanira Tip Control Syring) 10 mL syringe 04/11/2020 09:46:20 AM EST 1 EACH active [facility] Clonazepam 0.5 MG Oral Tablet Clonazepam 04/11/2020 09:33:55 AM EST 0.5 MG active [facility] Clonazepam 0.5 MG Oral Tablet Clonazepam 04/11/2020 09:33:55 AM EST 0.5 MG completed [facility] Clonazepam 0.5 MG Oral Tablet Clonazepam 04/11/2020 09:33:55 AM EST 0.5 MG active [facility] Clonazepam 0.5 MG Oral Tablet Clonazepam 04/11/2020 09:33:55 AM EST 0.5 MG completed [facility] Testosterone Cypionate 04/04/2020 10:27:13 AM EST 200 MG active [facility] Testosterone Cypionate 04/04/2020 10:27:13 AM EST 200 MG completed [facility] Testosterone Cypionate 04/04/2020 10:27:13 AM EST 200 MG completed [facility] Testosterone Cypionate 04/04/2020 10:27:13 AM EST 200 MG completed [facility] Testosterone Cypionate 04/04/2020 10:27:13 AM EST 200 MG completed [facility] Sertraline 100 MG Oral Tablet Sertraline 04/04/2020 10:24:47 AM EST 100 MG completed [facility] Sertraline 100 MG Oral Tablet Sertraline 04/04/2020 10:24:47 AM EST 100 MG active [facility] Sertraline 100 MG Oral Tablet Sertraline 04/04/2020 10:24:47 AM EST 100 MG completed [facility] Sertraline 100 MG Oral Tablet Sertraline 04/04/2020 10:24:47 AM EST 100 MG completed [facility] Sertraline 100 MG Oral Tablet Sertraline 04/04/2020 10:24:47 AM EST 100 MG active [facility] Alprazolam 0.5 MG Oral Tablet Alprazolam 03/18/2020 03:36:09 PM EDT 0.5 MG completed [facility] Alprazolam 0.5 MG Oral Tablet Alprazolam 03/18/2020 03:36:09 PM EDT 0.5 MG completed [facility] Alprazolam 0.5 MG Oral Tablet Alprazolam 03/18/2020 03:36:09 PM EDT 0.5 MG completed [facility] Alprazolam 0.5 MG Oral Tablet Alprazolam 03/18/2020 03:36:09 PM EDT 0.5 MG active [facility] Alprazolam 0.5 MG Oral Tablet Alprazolam 03/18/2020 03:36:09 PM EDT 0.5 MG completed [facility] Alprazolam 0.5 MG Oral Tablet Alprazolam 03/18/2020 03:24:41 PM EDT 0.5 MG completed [facility] Alprazolam 0.5 MG Oral Tablet Alprazolam 03/18/2020 03:24:41 PM EDT 0.5 MG completed [facility] Alprazolam 0.5 MG Oral Tablet Alprazolam 03/18/2020 03:24:41 PM EDT 0.5 MG completed [facility] Alprazolam 0.5 MG Oral Tablet Alprazolam 03/18/2020 03:24:41 PM EDT 0.5 MG completed [facility] Alprazolam 0.5 MG Oral Tablet Alprazolam 03/18/2020 03:24:41 PM EDT 0.5 MG completed [facility] Prazosin 1 MG Oral Capsule Prazosin 03/18/2020 03:23:46 PM EDT 1 MG active [facility] Prazosin 1 MG Oral Capsule Prazosin 03/18/2020 03:23:46 PM EDT 1 MG active [facility] Prazosin 1 MG Oral Capsule Prazosin 03/18/2020 03:23:46 PM EDT 1 MG active [facility] Prazosin 1 MG Oral Capsule Prazosin 03/18/2020 03:23:46 PM EDT 1 MG active [facility] Prazosin 1 MG Oral Capsule Prazosin 03/18/2020 03:23:46 PM EDT 1 MG active [facility] Sertraline 50 MG Oral Tablet Sertraline 03/13/2020 10:50:28 AM EDT 50 MG completed [facility] Sertraline 50 MG Oral Tablet Sertraline 03/13/2020 10:50:28 AM EDT 50 MG completed [facility] Sertraline 50 MG Oral Tablet Sertraline 03/13/2020 10:50:28 AM EDT 50 MG completed [facility] Sertraline 50 MG Oral Tablet Sertraline 03/13/2020 10:50:28 AM EDT 50 MG completed [facility] Sertraline 50 MG Oral Tablet Sertraline 03/13/2020 10:50:28 AM EDT 50 MG completed [facility] Prazosin 1 MG Oral Capsule Prazosin 03/13/2020 10:50:09 AM EDT 1 MG completed [facility] Prazosin 1 MG Oral Capsule Prazosin 03/13/2020 10:50:09 AM EDT 1 MG completed [facility] Prazosin 1 MG Oral Capsule Prazosin 03/13/2020 10:50:09 AM EDT 1 MG completed [facility] Prazosin 1 MG Oral Capsule Prazosin 03/13/2020 10:50:09 AM EDT 1 MG completed [facility] Prazosin 1 MG Oral Capsule Prazosin 03/13/2020 10:50:09 AM EDT 1 MG completed [facility] olanzapine 10 MG Oral Tablet Olanzapine Olanzapine 03/13/2020 10: 49:50 AM EDT 20 MG completed [facility] olanzapine 10 MG Oral Tablet Olanzapine Olanzapine 03/13/2020 10: 49:50 AM EDT 20 MG active [facility] olanzapine 10 MG Oral Tablet Olanzapine Olanzapine 03/13/2020 10: 49:50 AM EDT 20 MG completed [facility] olanzapine 10 MG Oral Tablet Olanzapine Olanzapine 03/13/2020 10: 49:50 AM EDT 20 MG active [facility] olanzapine 10 MG Oral Tablet Olanzapine Olanzapine 03/13/2020 10: 49:50 AM EDT 20 MG completed [facility] Divalproex Sodium 500 MG Delayed Release Oral Tablet Divalpr oex 03/13/2020 10:49:22 AM EDT 500 MG active [facility] Divalproex Sodium 500 MG Delayed Release Oral Tablet Divalpr oex 03/13/2020 10:49:22 AM EDT 500 MG active [facility] Divalproex Sodium 500 MG Delayed Release Oral Tablet Divalpr oex 03/13/2020 10:49:22 AM EDT 500 MG active [facility] Divalproex Sodium 500 MG Delayed Release Oral Tablet Divalpr oex 03/13/2020 10:49:22 AM EDT 500 MG active [facility] Divalproex Sodium 500 MG Delayed Release Oral Tablet Divalpr oex 03/13/2020 10:49:22 AM EDT 500 MG active [facility] Divalproex Sodium 500 MG Delayed Release Oral Tablet Divalpr oex 03/13/2020 10:06:36 AM EDT 500 MG completed [facility] Divalproex Sodium 500 MG Delayed Release Oral Tablet Divalpr oex 03/13/2020 10:06:36 AM EDT 500 MG completed [facility] Divalproex Sodium 500 MG Delayed Release Oral Tablet Divalpr oex 03/13/2020 10:06:36 AM EDT 500 MG completed [facility] Divalproex Sodium 500 MG Delayed Release Oral Tablet Divalpr oex 03/13/2020 10:06:36 AM EDT 500 MG completed [facility] Divalproex Sodium 500 MG Delayed Release Oral Tablet Divalpr oex 03/13/2020 10:06:36 AM EDT 500 MG completed [facility] Divalproex Sodium 500 MG Delayed Release Oral Tablet Divalpr oex 03/13/2020 10:06:36 AM EDT 500 MG completed [facility] Prazosin 1 MG Oral Capsule Prazosin 03/13/2020 10:06:14 AM EDT completed [facility] Prazosin 1 MG Oral Capsule Prazosin 03/13/2020 10:06:14 AM EDT completed [facility] Prazosin 1 MG Oral Capsule Prazosin 03/13/2020 10:06:14 AM EDT completed [facility] Prazosin 1 MG Oral Capsule Prazosin 03/13/2020 10:06:14 AM EDT completed [facility] Prazosin 1 MG Oral Capsule Prazosin 03/13/2020 10:06:14 AM EDT completed [facility] Prazosin 1 MG Oral Capsule Prazosin 03/13/2020 10:06:14 AM EDT completed [facility] olanzapine 10 MG Oral Tablet Olanzapine Olanzapine 03/13/2020 10: 06:01 AM EDT completed [facility] olanzapine 10 MG Oral Tablet Olanzapine Olanzapine 03/13/2020 10: 06:01 AM EDT completed [facility] olanzapine 10 MG Oral Tablet Olanzapine Olanzapine 03/13/2020 10: 06:01 AM EDT completed [facility] olanzapine 10 MG Oral Tablet Olanzapine Olanzapine 03/13/2020 10: 06:01 AM EDT completed [facility] olanzapine 10 MG Oral Tablet Olanzapine Olanzapine 03/13/2020 10: 06:01 AM EDT completed [facility] olanzapine 10 MG Oral Tablet Olanzapine Olanzapine 03/13/2020 10: 06:01 AM EDT completed [facility] Sertraline 50 MG Oral Tablet Sertraline 03/13/2020 10:05:33 AM EDT completed [facility] Sertraline 50 MG Oral Tablet Sertraline 03/13/2020 10:05:33 AM EDT completed [facility] Sertraline 50 MG Oral Tablet Sertraline 03/13/2020 10:05:33 AM EDT completed [facility] Sertraline 50 MG Oral Tablet Sertraline 03/13/2020 10:05:33 AM EDT completed [facility] Sertraline 50 MG Oral Tablet Sertraline 03/13/2020 10:05:33 AM EDT completed [facility] Sertraline 50 MG Oral Tablet Sertraline 03/13/2020 10:05:33 AM EDT completed [facility] Afluria Qd 2019-(3yr up)(PF) (flu vac [id number] 36mos up(P F)) 03/13/2020 09:54:44 AM EDT 60 [facility]flu vac [id number] 36mos up(P F)) 03/13/2020 09:54:44 AM EDT 60 [facility]CG [facility]PF[facility] (flu vac [id number] 36mos up(P F)) 03/13/2020 09:54:44 AM EDT 60 MCG completed [facility] Afluria Qd 2019-(3yr up)(PF) (flu vac [id number] 36mos up(P F)) 03/13/2020 09:54:44 AM EDT 60 MCG [facility] (flu vac [id number] 36mos up(P F)) 03/13/2020 09:54:44 AM EDT 60 [facility]CG [facility] up[facility]PF[facility] (flu vac [id number] 36mos up(P F)) 03/13/2020 09:54:44 AM EDT 60 MCG completed [facility] Testosterone Cypionate 02/27/2020 04:07:34 PM EDT 300 MG completed [facility] Testosterone Cypionate 02/27/2020 04:07:34 PM EDT 300 MG completed [facility] Testosterone Cypionate 02/27/2020 04:07:34 PM EDT 300 MG completed [facility] Testosterone Cypionate 02/27/2020 04:07:34 PM EDT 300 MG active [facility] Testosterone Cypionate 02/27/2020 04:07:34 PM EDT 300 MG completed [facility] Testosterone Cypionate 02/27/2020 04:07:34 PM EDT 300 MG completed [facility] Alprazolam 0.5 MG Oral Tablet Alprazolam 02/21/2020 08:22:10 AM EDT 0.5 MG completed [facility] Alprazolam 0.5 MG Oral Tablet Alprazolam 02/21/2020 08:22:10 AM EDT 0.5 MG active [facility] Alprazolam 0.5 MG Oral Tablet Alprazolam 02/21/2020 08:22:10 AM EDT 0.5 MG completed [facility] Alprazolam 0.5 MG Oral Tablet Alprazolam 02/21/2020 08:22:10 AM EDT 0.5 MG completed [facility] Alprazolam 0.5 MG Oral Tablet Alprazolam 02/21/2020 08:22:10 AM EDT 0.5 MG completed [facility] Alprazolam 0.5 MG Oral Tablet Alprazolam 02/21/2020 08:22:10 AM EDT 0.5 MG completed [facility] Syringe (Disposable) (Bd Luer-Yanira Tip Control Syring) 10 mL syringe 02/06/2020 10:06:04 AM EDT 1 EACH completed [facility] Syringe (Disposable) (Bd Luer-Yanira Tip Control Syring) 10 mL syringe 02/06/2020 10:06:04 AM EDT 1 EACH active [facility] Syringe (Disposable) (Bd Luer-Yanira Tip Control Syring) 10 mL syringe 02/06/2020 10:06:04 AM EDT 1 EACH completed [facility] Syringe (Disposable) (Bd Luer-Yanira Tip Control Syring) 10 mL syringe 02/06/2020 10:06:04 AM EDT 1 EACH active [facility] Syringe (Disposable) (Bd Luer-Yanira Tip Control Syring) 10 mL syringe 02/06/2020 10:06:04 AM EDT 1 EACH completed [facility] Syringe (Disposable) (Bd Luer-Yanira Tip Control Syring) 10 mL syringe 02/06/2020 10:06:04 AM EDT 1 EACH completed [facility] Citalopram 20 MG Oral Tablet Citalopram 02/06/2020 10:05:46 AM EDT 40 MG completed [facility] Citalopram 20 MG Oral Tablet Citalopram 02/06/2020 10:05:46 AM EDT 40 MG completed [facility] Citalopram 20 MG Oral Tablet Citalopram 02/06/2020 10:05:46 AM EDT 40 MG completed [facility] Citalopram 20 MG Oral Tablet Citalopram 02/06/2020 10:05:46 AM EDT 40 MG completed [facility] Citalopram 20 MG Oral Tablet Citalopram 02/06/2020 10:05:46 AM EDT 40 MG completed [facility] Citalopram 20 MG Oral Tablet Citalopram 02/06/2020 10:05:46 AM EDT 40 MG completed [facility] Testosterone Cypionate 02/06/2020 10:04:59 AM EDT 300 MG completed [facility] Testosterone Cypionate 02/06/2020 10:04:59 AM EDT 300 MG completed [facility] Testosterone Cypionate 02/06/2020 10:04:59 AM EDT 300 MG completed [facility] Testosterone Cypionate 02/06/2020 10:04:59 AM EDT 300 MG completed [facility] Testosterone Cypionate 02/06/2020 10:04:59 AM EDT 300 MG completed [facility] Testosterone Cypionate 02/06/2020 10:04:59 AM EDT 300 MG completed [facility] Divalproex Sodium 500 MG Delayed Release Oral Tablet Divalpr oex 01/25/2020 09:51:24 AM EDT 500 MG completed [facility] Divalproex Sodium 500 MG Delayed Release Oral Tablet Divalpr oex 01/25/2020 09:51:24 AM EDT 500 MG completed [facility] Divalproex Sodium 500 MG Delayed Release Oral Tablet Divalpr oex 01/25/2020 09:51:24 AM EDT 500 MG active [facility] Divalproex Sodium 500 MG Delayed Release Oral Tablet Divalpr oex 01/25/2020 09:51:24 AM EDT 500 MG active [facility] Divalproex Sodium 500 MG Delayed Release Oral Tablet Divalpr oex 01/25/2020 09:51:24 AM EDT 500 MG completed [facility] Divalproex Sodium 500 MG Delayed Release Oral Tablet Divalpr oex 01/25/2020 09:51:24 AM EDT 500 MG completed [facility] Divalproex Sodium 500 MG Delayed Release Oral Tablet Divalpr oex 01/25/2020 09:51:24 AM EDT 500 MG completed [facility] Divalproex Sodium 500 MG Delayed Release Oral Tablet Divalpr oex 01/25/2020 09:51:24 AM EDT 500 MG completed [facility] Divalproex Sodium 500 MG Delayed Release Oral Tablet Divalpr oex 01/25/2020 09:48:58 AM EDT 500 MG completed [facility] Divalproex Sodium 500 MG Delayed Release Oral Tablet Divalpr oex 01/25/2020 09:48:58 AM EDT 500 MG completed [facility] Divalproex Sodium 500 MG Delayed Release Oral Tablet Divalpr oex 01/25/2020 09:48:58 AM EDT 500 MG completed [facility] Divalproex Sodium 500 MG Delayed Release Oral Tablet Divalpr oex 01/25/2020 09:48:58 AM EDT 500 MG completed [facility] Divalproex Sodium 500 MG Delayed Release Oral Tablet Divalpr oex 01/25/2020 09:48:58 AM EDT 500 MG completed [facility] Divalproex Sodium 500 MG Delayed Release Oral Tablet Divalpr oex 01/25/2020 09:48:58 AM EDT 500 MG completed [facility] Divalproex Sodium 500 MG Delayed Release Oral Tablet Divalpr oex 01/25/2020 09:48:58 AM EDT 500 MG completed [facility] Divalproex Sodium 500 MG Delayed Release Oral Tablet Divalpr oex 01/25/2020 09:48:58 AM EDT 500 MG completed [facility] Testosterone Cypionate 01/24/2020 07:27:26 AM EDT 300 MG completed [facility] Testosterone Cypionate 01/24/2020 07:27:26 AM EDT 300 MG active [facility] Testosterone Cypionate 01/24/2020 07:27:26 AM EDT 300 MG completed [facility] Testosterone Cypionate 01/24/2020 07:27:26 AM EDT 300 MG completed [facility] Testosterone Cypionate 01/24/2020 07:27:26 AM EDT 300 MG completed [facility] Testosterone Cypionate 01/24/2020 07:27:26 AM EDT 300 MG completed [facility] Testosterone Cypionate 01/24/2020 07:27:26 AM EDT 300 MG completed [facility] Testosterone Cypionate 01/24/2020 07:27:26 AM EDT 300 MG completed [facility] Syringe (Disposable) (Bd Luer-Yanira Tip Control Syring) 10 mL syringe 01/24/2020 07:27:18 AM EDT 1 EACH completed [facility] Syringe (Disposable) (Bd Luer-Yanira Tip Control Syring) 10 mL syringe 01/24/2020 07:27:18 AM EDT 1 EACH completed [facility] Syringe (Disposable) (Bd Luer-Yanira Tip Control Syring) 10 mL syringe 01/24/2020 07:27:18 AM EDT 1 EACH completed [facility] Syringe (Disposable) (Bd Luer-Yanira Tip Control Syring) 10 mL syringe 01/24/2020 07:27:18 AM EDT 1 EACH completed [facility] Syringe (Disposable) (Bd Luer-Yanira Tip Control Syring) 10 mL syringe 01/24/2020 07:27:18 AM EDT 1 EACH completed [facility] Syringe (Disposable) (Bd Luer-Yanira Tip Control Syring) 10 mL syringe 01/24/2020 07:27:18 AM EDT 1 EACH active [facility] Syringe (Disposable) (Bd Luer-Yanira Tip Control Syring) 10 mL syringe 01/24/2020 07:27:18 AM EDT 1 EACH active [facility] [facility] (Bd Luer-Yanira Tip Control Syring) 10 mL syringe 01/24/2020 07:27:18 AM EDT 1 EACH completed [facility] Alprazolam 0.5 MG Oral Tablet Alprazolam 01/23/2020 04:11:06 PM EDT 0.5 MG completed [facility] Alprazolam 0.5 MG Oral Tablet Alprazolam 01/23/2020 04:11:06 PM EDT 0.5 MG active [facility] Alprazolam 0.5 MG Oral Tablet Alprazolam 01/23/2020 04:11:06 PM EDT 0.5 MG completed [facility] Alprazolam 0.5 MG Oral Tablet Alprazolam 01/23/2020 04:11:06 PM EDT 0.5 MG active [facility] Alprazolam 0.5 MG Oral Tablet Alprazolam 01/23/2020 04:11:06 PM EDT 0.5 MG completed [facility] Alprazolam 0.5 MG Oral Tablet Alprazolam 01/23/2020 04:11:06 PM EDT 0.5 MG completed [facility] Alprazolam 0.5 MG Oral Tablet Alprazolam 01/23/2020 04:11:06 PM EDT 0.5 MG completed [facility] Alprazolam 0.5 MG Oral Tablet Alprazolam 01/23/2020 04:11:06 PM EDT 0.5 MG completed [facility] Lisinopril 40 MG Oral Tablet Lisinopril 01/22/2020 08:50:17 AM EDT 40 MG active [facility] Lisinopril 40 MG Oral Tablet Lisinopril 01/22/2020 08:50:17 AM EDT 40 MG active [facility] Lisinopril 40 MG Oral Tablet Lisinopril 01/22/2020 08:50:17 AM EDT 40 MG active [facility] Lisinopril 40 MG Oral Tablet Lisinopril 01/22/2020 08:50:17 AM EDT 40 MG active [facility] Lisinopril 40 MG Oral Tablet Lisinopril 01/22/2020 08:50:17 AM EDT 40 MG active [facility] Lisinopril 40 MG Oral Tablet Lisinopril 01/22/2020 08:50:17 AM EDT 40 MG active [facility] Lisinopril 40 MG Oral Tablet Lisinopril 01/22/2020 08:50:17 AM EDT 40 MG active [facility] Lisinopril 40 MG Oral Tablet Lisinopril 01/22/2020 08:50:17 AM EDT 40 MG active [facility] Citalopram 20 MG Oral Tablet Citalopram 01/22/2020 08:50:13 AM EDT 40 MG active [facility] Citalopram 20 MG Oral Tablet Citalopram 01/22/2020 08:50:13 AM EDT 40 MG completed [facility] Citalopram 20 MG Oral Tablet Citalopram 01/22/2020 08:50:13 AM EDT 40 MG completed [facility] Citalopram 20 MG Oral Tablet Citalopram 01/22/2020 08:50:13 AM EDT 40 MG completed [facility] Citalopram 20 MG Oral Tablet Citalopram 01/22/2020 08:50:13 AM EDT 40 MG completed [facility] Citalopram 20 MG Oral Tablet Citalopram 01/22/2020 08:50:13 AM EDT 40 MG active [facility] Citalopram 20 MG Oral Tablet Citalopram 01/22/2020 08:50:13 AM EDT 40 MG completed [facility] Citalopram 20 MG Oral Tablet Citalopram 01/22/2020 08:50:13 AM EDT 40 MG completed [facility] Alprazolam 0.5 MG Oral Tablet Alprazolam 12/29/2019 07:41:20 AM EDT 0.5 MG completed [facility] Alprazolam 0.5 MG Oral Tablet Alprazolam 12/29/2019 07:41:20 AM EDT 0.5 MG completed [facility] Alprazolam 0.5 MG Oral Tablet Alprazolam 12/29/2019 07:41:20 AM EDT 0.5 MG completed [facility] Alprazolam 0.5 MG Oral Tablet Alprazolam 12/29/2019 07:41:20 AM EDT 0.5 MG completed [facility] Alprazolam 0.5 MG Oral Tablet Alprazolam 12/29/2019 07:41:20 AM EDT 0.5 MG completed [facility] Alprazolam 0.5 MG Oral Tablet Alprazolam 12/29/2019 07:41:20 AM EDT 0.5 MG completed [facility] Alprazolam 0.5 MG Oral Tablet Alprazolam 12/29/2019 07:41:20 AM EDT 0.5 MG completed [facility] Alprazolam 0.5 MG Oral Tablet Alprazolam 12/29/2019 07:41:20 AM EDT 0.5 MG completed [facility] Fluticasone Propionate (Flonase Allergy Relief) 50 mcg/actuation spray,suspension 12/20/2019 10:26:51 AM EDT 2 SPRAY active [facility] Fluticasone Propionate (Flonase Allergy Relief) 50 mcg/actuation spray,suspension 12/20/2019 10:26:51 AM EDT 2 SPRAY completed [facility] Fluticasone Propionate (Flonase Allergy Relief) 50 mcg/actuation spray,suspension 12/20/2019 10:26:51 AM EDT 2 SPRAY completed [facility] Fluticasone Propionate (Flonase Allergy Relief) 50 mcg/actuation spray,suspension 12/20/2019 10:26:51 AM EDT 2 SPRAY active [facility] Fluticasone Propionate (Flonase Allergy Relief) 50 mcg/actuation spray,suspension 12/20/2019 10:26:51 AM EDT 2 SPRAY completed [facility] Fluticasone Propionate (Flonase Allergy Relief) 50 mcg/actuation spray,suspension 12/20/2019 10:26:51 AM EDT 2 SPRAY completed [facility] Fluticasone Propionate (Flonase Allergy Relief) 50 mcg/actuation spray,suspension 12/20/2019 10:26:51 AM EDT 2 SPRAY completed [facility] Fluticasone Propionate (Flonase Allergy Relief) 50 mcg/actuation spray,suspension 12/20/2019 10:26:51 AM EDT 2 SPRAY completed [facility] Fluticasone Propionate (Flonase Allergy Relief) 50 mcg/actuation spray,suspension 12/20/2019 10:26:51 AM EDT 2 SPRAY completed [facility] Syringe (Disposable) (Bd Luer-Yanira Tip Control Syring) 10 mL syringe 11/29/2019 08:46:58 AM EDT 1 EACH completed [facility] Syringe (Disposable) (Bd Luer-Yanira Tip Control Syring) 10 mL syringe 11/29/2019 08:46:58 AM EDT 1 EACH completed [facility] Syringe (Disposable) (Bd Luer-Yanira Tip Control Syring) 10 mL syringe 11/29/2019 08:46:58 AM EDT 1 EACH completed [facility] Syringe (Disposable) (Bd Luer-Yanira Tip Control Syring) 10 mL syringe 11/29/2019 08:46:58 AM EDT 1 EACH completed [facility] Syringe (Disposable) (Bd Luer-Yanira Tip Control Syring) 10 mL syringe 11/29/2019 08:46:58 AM EDT 1 EACH completed [facility] Syringe (Disposable) (Bd Luer-Yanira Tip Control Syring) 10 mL syringe 11/29/2019 08:46:58 AM EDT 1 EACH completed [facility] Syringe (Disposable) (Bd Luer-Yanira Tip Control Syring) 10 mL syringe 11/29/2019 08:46:58 AM EDT 1 EACH active [facility] Syringe (Disposable) (Bd Luer-Yanira Tip Control Syring) 10 mL syringe 11/29/2019 08:46:58 AM EDT 1 EACH completed [facility] Syringe (Disposable) (Bd Luer-Yanira Tip Control Syring) 10 mL syringe 11/29/2019 08:46:58 AM EDT 1 EACH [facility] meloxicam 7.5 MG Oral Tablet Meloxicam Meloxicam 11/29/2019 08:4 6:52 AM EDT 7.5 MG active [facility] meloxicam 7.5 MG Oral Tablet Meloxicam Meloxicam 11/29/2019 08:4 6:52 AM EDT 7.5 MG active [facility] meloxicam 7.5 MG Oral Tablet Meloxicam Meloxicam 11/29/2019 08:4 6:52 AM EDT 7.5 MG active [facility] meloxicam 7.5 MG Oral Tablet Meloxicam Meloxicam 11/29/2019 08:4 6:52 AM EDT 7.5 MG active [facility] meloxicam 7.5 MG Oral Tablet Meloxicam Meloxicam 11/29/2019 08:4 6:52 AM EDT 7.5 MG active [facility] meloxicam 7.5 MG Oral Tablet Meloxicam Meloxicam 11/29/2019 08:4 6:52 AM EDT 7.5 MG active [facility] meloxicam 7.5 MG Oral Tablet Meloxicam Meloxicam 11/29/2019 08:4 6:52 AM EDT 7.5 MG active [facility] meloxicam 7.5 MG Oral Tablet Meloxicam Meloxicam 11/29/2019 08:4 6:52 AM EDT 7.5 MG active [facility] meloxicam 7.5 MG Oral Tablet Meloxicam Meloxicam 11/29/2019 08:4 6:52 AM EDT 7.5 MG active [facility] Alprazolam 0.5 MG Oral Tablet Alprazolam 11/29/2019 08:45:38 AM EDT 0.5 MG completed [facility] Alprazolam 0.5 MG Oral Tablet Alprazolam 11/29/2019 08:45:38 AM EDT 0.5 MG completed [facility] Alprazolam 0.5 MG Oral Tablet Alprazolam 11/29/2019 08:45:38 AM EDT 0.5 MG completed [facility] Alprazolam 0.5 MG Oral Tablet Alprazolam 11/29/2019 08:45:38 AM EDT 0.5 MG completed [facility] Alprazolam 0.5 MG Oral Tablet Alprazolam 11/29/2019 08:45:38 AM EDT 0.5 MG completed [facility] Alprazolam 0.5 MG Oral Tablet Alprazolam 11/29/2019 08:45:38 AM EDT 0.5 MG completed [facility] Alprazolam 0.5 MG Oral Tablet Alprazolam 11/29/2019 08:45:38 AM EDT 0.5 MG completed [facility] Alprazolam 0.5 MG Oral Tablet Alprazolam 11/29/2019 08:45:38 AM EDT 0.5 MG completed [facility] Alprazolam 0.5 MG Oral Tablet Alprazolam 11/29/2019 08:45:38 AM EDT 0.5 MG active [facility] Testosterone Cypionate 11/29/2019 08:45:23 AM EDT 300 MG active [facility] Testosterone Cypionate 11/29/2019 08:45:23 AM EDT 300 MG completed [facility] Testosterone Cypionate 11/29/2019 08:45:23 AM EDT 300 MG completed [facility] Testosterone Cypionate 11/29/2019 08:45:23 AM EDT 300 MG completed [facility] Testosterone Cypionate 11/29/2019 08:45:23 AM EDT 300 MG completed [facility] Testosterone Cypionate 11/29/2019 08:45:23 AM EDT 300 MG completed [facility] Testosterone Cypionate 11/29/2019 08:45:23 AM EDT 300 MG completed [facility] Testosterone Cypionate 11/29/2019 08:45:23 AM EDT 300 MG completed [facility] Testosterone Cypionate 11/29/2019 08:45:23 AM EDT 300 MG completed [facility] Testosterone Cypionate 11/29/2019 08:34:48 AM EDT 300 MG completed [facility] Testosterone Cypionate 11/29/2019 08:34:48 AM EDT 300 MG completed [facility] Testosterone Cypionate 11/29/2019 08:34:48 AM EDT 300 MG completed [facility] Testosterone Cypionate 11/29/2019 08:34:48 AM EDT 300 MG completed [facility] Testosterone Cypionate 11/29/2019 08:34:48 AM EDT 300 MG completed [facility] Testosterone Cypionate 11/29/2019 08:34:48 AM EDT 300 MG completed [facility] Testosterone Cypionate 11/29/2019 08:34:48 AM EDT 300 MG completed [facility] Testosterone Cypionate 11/29/2019 08:34:48 AM EDT 300 MG completed [facility] Testosterone Cypionate 11/29/2019 08:34:48 AM EDT 300 MG completed [facility] Alprazolam 0.5 MG Oral Tablet Alprazolam 11/29/2019 08:34:44 AM EDT 0.5 MG completed [facility] Alprazolam 0.5 MG Oral Tablet Alprazolam 11/29/2019 08:34:44 AM EDT 0.5 MG completed [facility] Alprazolam 0.5 MG Oral Tablet Alprazolam 11/29/2019 08:34:44 AM EDT 0.5 MG completed [facility] Alprazolam 0.5 MG Oral Tablet Alprazolam 11/29/2019 08:34:44 AM EDT 0.5 MG completed [facility] Alprazolam 0.5 MG Oral Tablet Alprazolam 11/29/2019 08:34:44 AM EDT 0.5 MG completed [facility] Alprazolam 0.5 MG Oral Tablet Alprazolam 11/29/2019 08:34:44 AM EDT 0.5 MG completed [facility] Alprazolam 0.5 MG Oral Tablet Alprazolam 11/29/2019 08:34:44 AM EDT 0.5 MG completed [facility] Alprazolam 0.5 MG Oral Tablet Alprazolam 11/29/2019 08:34:44 AM EDT 0.5 MG completed [facility] Alprazolam 0.5 MG Oral Tablet Alprazolam 11/29/2019 08:34:44 AM EDT 0.5 MG completed [facility] Syringe (Disposable) (Bd Luer-Yanira Tip Control Syring) 10 mL syringe 11/29/2019 08:34:39 AM EDT 1 EACH completed [facility] Syringe (Disposable) (Bd Luer-Yanira Tip Control Syring) 10 mL syringe 11/29/2019 08:34:39 AM EDT 1 EACH completed [facility] Syringe (Disposable) (Bd Luer-Yanira Tip Control Syring) 10 mL syringe 11/29/2019 08:34:39 AM EDT 1 EACH completed [facility] Syringe (Disposable) (Bd Luer-Yanira Tip Control Syring) 10 mL syringe 11/29/2019 08:34:39 AM EDT 1 EACH completed [facility] Syringe (Disposable) (Bd Luer-Yanira Tip Control Syring) 10 mL syringe 11/29/2019 08:34:39 AM EDT 1 EACH completed [facility] Syringe (Disposable) (Bd Luer-Yanira Tip Control Syring) 10 mL syringe 11/29/2019 08:34:39 AM EDT 1 EACH completed [facility] Syringe (Disposable) (Bd Luer-Yanira Tip Control Syring) 10 mL syringe 11/29/2019 08:34:39 AM EDT 1 EACH completed [facility] Syringe (Disposable) (Bd Luer-Yanira Tip Control Syring) 10 mL syringe 11/29/2019 08:34:39 AM EDT 1 EACH completed [facility] Syringe (Disposable) (Bd Luer-Yanira Tip Control Syring) 10 mL syringe 11/29/2019 08:34:39 AM EDT 1 EACH completed [facility] meloxicam 7.5 MG Oral Tablet Meloxicam Meloxicam 11/29/2019 08:1 6:51 AM EDT 7.5 MG completed [facility] meloxicam 7.5 MG Oral Tablet Meloxicam Meloxicam 11/29/2019 08:1 6:51 AM EDT 7.5 MG completed [facility] meloxicam 7.5 MG Oral Tablet Meloxicam Meloxicam 11/29/2019 08:1 6:51 AM EDT 7.5 MG completed [facility] meloxicam 7.5 MG Oral Tablet Meloxicam Meloxicam 11/29/2019 08:1 6:51 AM EDT 7.5 MG completed [facility] meloxicam 7.5 MG Oral Tablet Meloxicam Meloxicam 11/29/2019 08:1 6:51 AM EDT 7.5 MG completed [facility] meloxicam 7.5 MG Oral Tablet Meloxicam Meloxicam 11/29/2019 08:1 6:51 AM EDT 7.5 MG completed [facility] meloxicam 7.5 MG Oral Tablet Meloxicam Meloxicam 11/29/2019 08:1 6:51 AM EDT 7.5 MG completed [facility] meloxicam 7.5 MG Oral Tablet Meloxicam Meloxicam 11/29/2019 08:1 6:51 AM EDT 7.5 MG completed [facility] meloxicam 7.5 MG Oral Tablet Meloxicam Meloxicam 11/29/2019 08:1 6:51 AM EDT 7.5 MG completed [facility] Citalopram 20 MG Oral Tablet Citalopram 11/13/2019 03:47:54 PM EDT 40 MG active [facility] Citalopram 20 MG Oral Tablet Citalopram 11/13/2019 03:47:54 PM EDT 40 MG completed [facility] Citalopram 20 MG Oral Tablet Citalopram 11/13/2019 03:47:54 PM EDT 40 MG completed [facility] Citalopram 20 MG Oral Tablet Citalopram 11/13/2019 03:47:54 PM EDT 40 MG completed [facility] Citalopram 20 MG Oral Tablet Citalopram 11/13/2019 03:47:54 PM EDT 40 MG completed [facility] Citalopram 20 MG Oral Tablet Citalopram 11/13/2019 03:47:54 PM EDT 40 MG completed [facility] Citalopram 20 MG Oral Tablet Citalopram 11/13/2019 03:47:54 PM EDT 40 MG completed [facility] Citalopram 20 MG Oral Tablet Citalopram 11/13/2019 03:47:54 PM EDT 40 MG completed [facility] Citalopram 20 MG Oral Tablet Citalopram 11/13/2019 03:47:54 PM EDT 40 MG completed [facility] gabapentin 400 MG Oral Capsule Gabapentin Gabapentin 2019 03:46:39 PM EDT 400 MG completed [facility] Divalproex Sodium 250 MG Delayed Release Oral Tablet Divalpr oex 11/13/2019 03:46:07 PM EDT 250 MG completed [facility] Divalproex Sodium 250 MG Delayed Release Oral Tablet Divalpr oex 11/13/2019 03:46:07 PM EDT 250 MG completed [facility] Divalproex Sodium 250 MG Delayed Release Oral Tablet Divalpr oex 11/13/2019 03:46:07 PM EDT 250 MG completed [facility] Divalproex Sodium 250 MG Delayed Release Oral Tablet Divalpr oex 11/13/2019 03:46:07 PM EDT 250 MG completed [facility] Divalproex Sodium 250 MG Delayed Release Oral Tablet Divalpr oex 11/13/2019 03:46:07 PM EDT 250 MG completed [facility] Divalproex Sodium 250 MG Delayed Release Oral Tablet Divalpr oex 11/13/2019 03:46:07 PM EDT 250 MG completed [facility] Divalproex Sodium 250 MG Delayed Release Oral Tablet Divalpr oex 11/13/2019 03:46:07 PM EDT 250 MG completed [facility] Divalproex Sodium 250 MG Delayed Release Oral Tablet Divalpr oex 11/13/2019 03:46:07 PM EDT 250 MG completed [facility] Divalproex Sodium 250 MG Delayed Release Oral Tablet Divalpr oex 11/13/2019 03:46:07 PM EDT 250 MG completed [facility] Citalopram 20 MG Oral Tablet Citalopram 11/13/2019 03:45:33 PM EDT 40 MG completed [facility] Citalopram 20 MG Oral Tablet Citalopram 11/13/2019 03:45:33 PM EDT 40 MG completed [facility] Citalopram 20 MG Oral Tablet Citalopram 11/13/2019 03:45:33 PM EDT 40 MG completed [facility] Citalopram 20 MG Oral Tablet Citalopram 11/13/2019 03:45:33 PM EDT 40 MG completed [facility] Citalopram 20 MG Oral Tablet Citalopram 11/13/2019 03:45:33 PM EDT 40 MG completed [facility] Citalopram 20 MG Oral Tablet Citalopram 11/13/2019 03:45:33 PM EDT 40 MG completed [facility] Citalopram 20 MG Oral Tablet Citalopram 11/13/2019 03:45:33 PM EDT 40 MG completed [facility] Citalopram 20 MG Oral Tablet Citalopram 11/13/2019 03:45:33 PM EDT 40 MG completed [facility] Citalopram 20 MG Oral Tablet Citalopram 11/13/2019 03:45:33 PM EDT 40 MG completed [facility] Azelastine HCL (Nasal) Azelastine HCL (Nasal) 11/09/2019 12:00:00 AM E DT active [facility] Fluticasone Propionate Nasal Boring Fluticasone Propionate Na makenna Boring 11/09/2019 12:00:00 AM EDT active [facility] ([facility]) Testosterone Cypionate 10/19/2019 12:24:56 PM EDT 300 MG completed [facility] Testosterone Cypionate 10/19/2019 12:24:56 PM EDT 300 MG completed [facility] Testosterone Cypionate 10/19/2019 12:24:56 PM EDT 300 MG completed [facility] Testosterone Cypionate 10/19/2019 12:24:56 PM EDT 300 MG completed [facility] Testosterone Cypionate 10/19/2019 12:24:56 PM EDT 300 MG completed [facility] Testosterone Cypionate 10/19/2019 12:24:56 PM EDT 300 MG completed [facility] Testosterone Cypionate 10/19/2019 12:24:56 PM EDT 300 MG completed [facility] Testosterone Cypionate 10/19/2019 12:24:56 PM EDT 300 MG completed [facility] Testosterone Cypionate 10/19/2019 12:24:56 PM EDT 300 MG completed [facility] Syringe (Disposable) (Bd Luer-Yanira Tip Control Syring) 10 mL syringe 10/19/2019 11:10:00 AM EDT 1 EACH completed [facility] Syringe (Disposable) (Bd Luer-Yanira Tip Control Syring) 10 mL syringe 10/19/2019 11:10:00 AM EDT 1 EACH completed [facility] Syringe (Disposable) (Bd Luer-Yanira Tip Control Syring) 10 mL syringe 10/19/2019 11:10:00 AM EDT 1 EACH completed [facility] Syringe (Disposable) (Bd Luer-Yanira Tip Control Syring) 10 mL syringe 10/19/2019 11:10:00 AM EDT 1 EACH completed [facility] Syringe (Disposable) (Bd Luer-Yanira Tip Control Syring) 10 mL syringe 10/19/2019 11:10:00 AM EDT 1 EACH completed [facility] Syringe (Disposable) (Bd Luer-Yanira Tip Control Syring) 10 mL syringe 10/19/2019 11:10:00 AM EDT 1 EACH completed [facility] Syringe (Disposable) (Bd Luer-Yanira Tip Control Syring) 10 mL syringe 10/19/2019 11:10:00 AM EDT 1 EACH completed [facility] Syringe (Disposable) (Bd Luer-Yanira Tip Control Syring) 10 mL syringe 10/19/2019 11:10:00 AM EDT 1 EACH completed [facility] Syringe (Disposable) (Bd Luer-Yanira Tip Control Syring) 10 mL syringe 10/19/2019 11:10:00 AM EDT 1 EACH completed [facility] Trazodone Hydrochloride 50 MG Oral Tablet Trazodone 2019 10:02:22 AM EDT 50 MG completed [facility] Trazodone Hydrochloride 50 MG Oral Tablet Trazodone 2019 10:02:22 AM EDT 50 MG completed [facility] Trazodone Hydrochloride 50 MG Oral Tablet Trazodone 2019 10:02:22 AM EDT 50 MG completed [facility] Trazodone Hydrochloride 50 MG Oral Tablet Trazodone 2019 10:02:22 AM EDT 50 MG completed [facility] Trazodone Hydrochloride 50 MG Oral Tablet Trazodone 2019 10:02:22 AM EDT 50 MG completed [facility] Trazodone Hydrochloride 50 MG Oral Tablet Trazodone 2019 10:02:22 AM EDT 50 MG completed [facility] Trazodone Hydrochloride 50 MG Oral Tablet Trazodone 2019 10:02:22 AM EDT 50 MG completed [facility] Trazodone Hydrochloride 50 MG Oral Tablet Trazodone 2019 10:02:22 AM EDT 50 MG completed [facility] Trazodone Hydrochloride 50 MG Oral Tablet Trazodone 2019 10:02:22 AM EDT 50 MG completed [facility] Trazodone Hydrochloride 50 MG Oral Tablet Trazodone 2019 10:02:22 AM EDT 50 MG completed [facility] Testosterone Cypionate 08/21/2019 09:55:23 AM EDT 300 MG completed [facility] Testosterone Cypionate 08/21/2019 09:55:23 AM EDT 300 MG completed [facility] Testosterone Cypionate 08/21/2019 09:55:23 AM EDT 300 MG active [facility] Testosterone Cypionate 08/21/2019 09:55:23 AM EDT 300 MG completed [facility] Testosterone Cypionate 08/21/2019 09:55:23 AM EDT 300 MG completed [facility] Testosterone Cypionate 08/21/2019 09:55:23 AM EDT 300 MG completed [facility] Testosterone Cypionate 08/21/2019 09:55:23 AM EDT 300 MG completed [facility] Testosterone Cypionate 08/21/2019 09:55:23 AM EDT 300 MG completed [facility] Testosterone Cypionate 08/21/2019 09:55:23 AM EDT 300 MG completed [facility] Testosterone Cypionate 08/21/2019 09:55:23 AM EDT 300 MG completed [facility] Loratadine 10 MG Oral Tablet Loratadine 07/12/2019 10:16:12 AM EST 10 MG active [facility] Loratadine 10 MG Oral Tablet Loratadine (Allergy Relief (Loratadine)) 10 mg tablet Loratadine (Allergy Relief (Loratadine)) 10 mg tablet 07/12/2019 10:16:12 AM EST 10 MG active [facility] Loratadine 10 MG Oral Tablet Loratadine (Allergy Relief (Loratadine)) 10 mg tablet Loratadine (Allergy Relief (Loratadine)) 10 mg tablet 07/12/2019 10:16:12 AM EST 10 MG completed [facility] Loratadine 10 MG Oral Tablet Loratadine (Allergy Relief (Loratadine)) 10 mg tablet Loratadine (Allergy Relief (Loratadine)) 10 mg tablet 07/12/2019 10:16:12 AM EST 10 MG completed [facility] Loratadine 10 MG Oral Tablet Loratadine (Allergy Relief (Loratadine)) 10 mg tablet Loratadine (Allergy Relief (Loratadine)) 10 mg tablet 07/12/2019 10:16:12 AM EST 10 MG completed [facility] Loratadine 10 MG Oral Tablet Loratadine (Allergy Relief (Loratadine)) 10 mg tablet Loratadine (Allergy Relief (Loratadine)) 10 mg tablet 07/12/2019 10:16:12 AM EST 10 MG completed [facility] Loratadine 10 MG Oral Tablet Loratadine (Allergy Relief (Loratadine)) 10 mg tablet Loratadine (Allergy Relief (Loratadine)) 10 mg tablet 07/12/2019 10:16:12 AM EST 10 MG completed [facility] Loratadine 10 MG Oral Tablet Loratadine (Allergy Relief (Loratadine)) 10 mg tablet Loratadine (Allergy Relief (Loratadine)) 10 mg tablet 07/12/2019 10:16:12 AM EST 10 MG completed [facility] Loratadine 10 MG Oral Tablet Loratadine (Allergy Relief (Loratadine)) 10 mg tablet Loratadine (Allergy Relief (Loratadine)) 10 mg tablet 07/12/2019 10:16:12 AM EST 10 MG active [facility] Loratadine 10 MG Oral Tablet Loratadine (Allergy Relief (Loratadine)) 10 mg tablet Loratadine (Allergy Relief (Loratadine)) 10 mg tablet 07/12/2019 10:16:12 AM EST 10 MG completed [facility] Loratadine 10 MG Oral Tablet Loratadine (Allergy Relief (Loratadine)) 10 mg tablet Loratadine (Allergy Relief (Loratadine)) 10 mg tablet 07/12/2019 10:15:06 AM EST 10 MG completed [facility] Loratadine 10 MG Oral Tablet Loratadine 07/12/2019 10:15:06 AM EST 10 MG completed [facility] Loratadine 10 MG Oral Tablet Loratadine (Allergy Relief (Loratadine)) 10 mg tablet Loratadine (Allergy Relief (Loratadine)) 10 mg tablet 07/12/2019 10:15:06 AM EST 10 MG completed [facility] Loratadine 10 MG Oral Tablet Loratadine (Allergy Relief (Loratadine)) 10 mg tablet Loratadine (Allergy Relief (Loratadine)) 10 mg tablet 07/12/2019 10:15:06 AM EST 10 MG completed [facility] Loratadine 10 MG Oral Tablet Loratadine (Allergy Relief (Loratadine)) 10 mg tablet Loratadine (Allergy Relief (Loratadine)) 10 mg tablet 07/12/2019 10:15:06 AM EST 10 MG completed [facility] Loratadine 10 MG Oral Tablet Loratadine (Allergy Relief (Loratadine)) 10 mg tablet Loratadine (Allergy Relief (Loratadine)) 10 mg tablet 07/12/2019 10:15:06 AM EST 10 MG completed [facility] Loratadine 10 MG Oral Tablet Loratadine (Allergy Relief (Loratadine)) 10 mg tablet Loratadine (Allergy Relief (Loratadine)) 10 mg tablet 07/12/2019 10:15:06 AM EST 10 MG completed [facility] Loratadine 10 MG Oral Tablet Loratadine (Allergy Relief (Loratadine)) 10 mg tablet Loratadine (Allergy Relief (Loratadine)) 10 mg tablet 07/12/2019 10:15:06 AM EST 10 MG completed [facility] Loratadine 10 MG Oral Tablet Loratadine (Allergy Relief (Loratadine)) 10 mg tablet Loratadine (Allergy Relief (Loratadine)) 10 mg tablet 07/12/2019 10:15:06 AM EST 10 MG completed [facility] Loratadine 10 MG Oral Tablet Loratadine (Allergy Relief (Loratadine)) 10 mg tablet Loratadine (Allergy Relief (Loratadine)) 10 mg tablet 07/12/2019 10:15:06 AM EST 10 MG completed [facility] montelukast 10 MG Oral Tablet Montelukast Montelukast 07/12/2019 10:14:59 AM EST 10 MG completed [facility] montelukast 10 MG Oral Tablet Montelukast Montelukast 07/12/2019 10:14:59 AM EST 10 MG completed [facility] montelukast 10 MG Oral Tablet Montelukast Montelukast 07/12/2019 10:14:59 AM EST 10 MG completed [facility] montelukast 10 MG Oral Tablet Montelukast Montelukast 07/12/2019 10:14:59 AM EST 10 MG active [facility] montelukast 10 MG Oral Tablet Montelukast Montelukast 07/12/2019 10:14:59 AM EST 10 MG completed [facility] montelukast 10 MG Oral Tablet Montelukast Montelukast 07/12/2019 10:14:59 AM EST 10 MG active [facility] montelukast 10 MG Oral Tablet Montelukast Montelukast 07/12/2019 10:14:59 AM EST 10 MG completed [facility] montelukast 10 MG Oral Tablet Montelukast Montelukast 07/12/2019 10:14:59 AM EST 10 MG completed [facility] montelukast 10 MG Oral Tablet Montelukast Montelukast 07/12/2019 10:14:59 AM EST 10 MG completed [facility] montelukast 10 MG Oral Tablet Montelukast Montelukast 07/12/2019 10:14:59 AM EST 10 MG active [facility] Testosterone Cypionate 06/27/2019 08:37:11 AM EST 300 MG completed [facility] Testosterone Cypionate 06/27/2019 08:37:11 AM EST 300 MG active [facility] Testosterone Cypionate 06/27/2019 08:37:11 AM EST 300 MG completed [facility] Testosterone Cypionate 06/27/2019 08:37:11 AM EST 300 MG completed [facility] Testosterone Cypionate 06/27/2019 08:37:11 AM EST 300 MG completed [facility] Testosterone Cypionate 06/27/2019 08:37:11 AM EST 300 MG completed [facility] Testosterone Cypionate 06/27/2019 08:37:11 AM EST 300 MG completed [facility] Testosterone Cypionate 06/27/2019 08:37:11 AM EST 300 MG completed [facility] Testosterone Cypionate 06/27/2019 08:37:11 AM EST 300 MG completed [facility] Testosterone Cypionate 06/27/2019 08:37:11 AM EST 300 MG completed [facility] Testosterone Cypionate 06/27/2019 08:37:11 AM EST 300 MG completed [facility] Syringe (Disposable) (Bd Luer-Yanira Tip Control Syring) 10 mL syringe 06/27/2019 08:37:00 AM EST 1 EACH completed [facility] Syringe (Disposable) (Bd Luer-Yanira Tip Control Syring) 10 mL syringe 06/27/2019 08:37:00 AM EST 1 EACH completed [facility] Syringe (Disposable) (Bd Luer-Yanira Tip Control Syring) 10 mL syringe 06/27/2019 08:37:00 AM EST 1 EACH completed [facility] Syringe (Disposable) (Bd Luer-Yanira Tip Control Syring) 10 mL syringe 06/27/2019 08:37:00 AM EST 1 EACH completed [facility] Syringe (Disposable) 06/27/2019 08:37:00 AM EST 1 EACH active [facility] Syringe (Disposable) 06/27/2019 08:37:00 AM EST 1 EACH active [facility] Syringe (Disposable) (Bd Luer-Yanira Tip Control Syring) 10 mL syringe 06/27/2019 08:37:00 AM EST 1 EACH completed [facility] Syringe (Disposable) (Bd Luer-Yanira Tip Control Syring) 10 mL syringe 06/27/2019 08:37:00 AM EST 1 EACH completed [facility] Syringe (Disposable) (Bd Luer-Yanira Tip Control Syring) 10 mL syringe 06/27/2019 08:37:00 AM EST 1 EACH completed [facility] Syringe (Disposable) (Bd Luer-Yanira Tip Control Syring) 10 mL syringe 06/27/2019 08:37:00 AM EST 1 EACH completed [facility] Syringe (Disposable) (Bd Luer-Yanira Tip Control Syring) 10 mL syringe 06/27/2019 08:37:00 AM EST 1 EACH completed [facility] Testosterone Cypionate 04/28/2019 07:29:49 AM EST 300 MG completed [facility] Testosterone Cypionate 04/28/2019 07:29:49 AM EST 300 MG completed [facility] Testosterone Cypionate 04/28/2019 07:29:49 AM EST 300 MG [facility] Testosterone Cypionate 04/28/2019 07:29:49 AM EST 300 MG completed [facility] Testosterone Cypionate 04/28/2019 07:29:49 AM EST 300 MG completed [facility] Testosterone Cypionate 04/28/2019 07:29:49 AM EST 300 MG completed [facility] Testosterone Cypionate 04/28/2019 07:29:49 AM EST 300 MG completed [facility] Testosterone Cypionate 04/28/2019 07:29:49 AM EST 300 MG completed [facility] Testosterone Cypionate 04/28/2019 07:29:49 AM EST 300 MG completed [facility] Testosterone Cypionate 04/28/2019 07:29:49 AM EST 300 MG completed [facility] Testosterone Cypionate 04/28/2019 07:29:49 AM EST 300 MG completed [facility] Syringe (Disposable) (Bd Luer-Yanira Tip Control Syring) 10 mL syringe 04/28/2019 07:29:08 AM EST 1 EACH completed [facility] Syringe (Disposable) 04/28/2019 07:29:08 AM EST 1 EACH completed [facility] Syringe (Disposable) (Bd Luer-Yanira Tip Control Syring) 10 mL syringe 04/28/2019 07:29:08 AM EST 1 EACH completed [facility] Syringe (Disposable) (Bd Luer-Yanira Tip Control Syring) 10 mL syringe 04/28/2019 07:29:08 AM EST 1 EACH completed [facility] Syringe (Disposable) 04/28/2019 07:29:08 AM EST 1 EACH completed [facility] Syringe (Disposable) (Bd Luer-Yanira Tip Control Syring) 10 mL syringe 04/28/2019 07:29:08 AM EST 1 EACH completed [facility] Syringe (Disposable) (Bd Luer-Yanira Tip Control Syring) 10 mL syringe 04/28/2019 07:29:08 AM EST 1 EACH completed [facility] Syringe (Disposable) (Bd Luer-Yanira Tip Control Syring) 10 mL syringe 04/28/2019 07:29:08 AM EST 1 EACH completed [facility] Syringe (Disposable) (Bd Luer-Yanira Tip Control Syring) 10 mL syringe 04/28/2019 07:29:08 AM EST 1 EACH completed [facility] Syringe (Disposable) (Bd Luer-Yanira Tip Control Syring) 10 mL syringe 04/28/2019 07:29:08 AM EST 1 EACH completed [facility] Syringe (Disposable) (Bd Luer-Yanira Tip Control Syring) 10 mL syringe 04/28/2019 07:29:08 AM EST 1 EACH completed [facility] Alprazolam 0.5 MG Oral Tablet Alprazolam 02/16/2019 10:08:03 AM EDT 0.5 MG completed [facility] Alprazolam 0.5 MG Oral Tablet Alprazolam 02/16/2019 10:08:03 AM EDT 0.5 MG completed [facility] Alprazolam 0.5 MG Oral Tablet Alprazolam 02/16/2019 10:08:03 AM EDT 0.5 MG completed [facility] Alprazolam 0.5 MG Oral Tablet Alprazolam 02/16/2019 10:08:03 AM EDT 0.5 MG completed [facility] Alprazolam 0.5 MG Oral Tablet Alprazolam 02/16/2019 10:08:03 AM EDT 0.5 MG completed [facility] Alprazolam 0.5 MG Oral Tablet Alprazolam 02/16/2019 10:08:03 AM EDT 0.5 MG completed [facility] Alprazolam 0.5 MG Oral Tablet Alprazolam 02/16/2019 10:08:03 AM EDT 0.5 MG completed [facility] Alprazolam 0.5 MG Oral Tablet Alprazolam 02/16/2019 10:08:03 AM EDT 0.5 MG completed [facility] Alprazolam 0.5 MG Oral Tablet Alprazolam 02/16/2019 10:08:03 AM EDT 0.5 MG completed [facility] Lisinopril 40 MG Oral Tablet Lisinopril 01/27/2019 02:55:33 PM EDT 40 MG completed [facility] Lisinopril 40 MG Oral Tablet Lisinopril 01/27/2019 02:55:33 PM EDT 40 MG completed [facility] Lisinopril 40 MG Oral Tablet Lisinopril 01/27/2019 02:55:33 PM EDT 40 MG completed [facility] Lisinopril 40 MG Oral Tablet Lisinopril 01/27/2019 02:55:33 PM EDT 40 MG completed [facility] Lisinopril 40 MG Oral Tablet Lisinopril 01/27/2019 02:55:33 PM EDT 40 MG completed [facility] Lisinopril 40 MG Oral Tablet Lisinopril 01/27/2019 02:55:33 PM EDT 40 MG completed [facility] Lisinopril 40 MG Oral Tablet Lisinopril 01/27/2019 02:55:33 PM EDT 40 MG completed [facility] Lisinopril 40 MG Oral Tablet Lisinopril 01/27/2019 02:55:33 PM EDT 40 MG completed [facility] montelukast 10 MG Oral Tablet Montelukast Montelukast 01/11/2019 08:44:39 AM EDT 10 MG completed [facility] montelukast 10 MG Oral Tablet Montelukast Montelukast 01/11/2019 08:44:39 AM EDT 10 MG completed [facility] montelukast 10 MG Oral Tablet Montelukast Montelukast 01/11/2019 08:44:39 AM EDT 10 MG completed [facility] montelukast 10 MG Oral Tablet Montelukast Montelukast 01/11/2019 08:44:39 AM EDT 10 MG completed [facility] montelukast 10 MG Oral Tablet Montelukast Montelukast 01/11/2019 08:44:39 AM EDT 10 MG completed [facility] montelukast 10 MG Oral Tablet Montelukast Montelukast 01/11/2019 08:44:39 AM EDT 10 MG completed [facility] montelukast 10 MG Oral Tablet Montelukast Montelukast 01/11/2019 08:44:39 AM EDT 10 MG completed [facility] montelukast 10 MG Oral Tablet Montelukast Montelukast 01/11/2019 08:44:39 AM EDT 10 MG completed [facility] montelukast 10 MG Oral Tablet Montelukast Montelukast 01/11/2019 08:44:39 AM EDT 10 MG completed [facility] montelukast 10 MG Oral Tablet Montelukast Montelukast 01/11/2019 08:44:39 AM EDT 10 MG completed [facility] montelukast 10 MG Oral Tablet Montelukast Montelukast 01/11/2019 08:44:39 AM EDT 10 MG completed [facility] Citalopram 20 MG Oral Tablet Citalopram 01/11/2019 08:36:56 AM EDT 30 MG completed [facility] Citalopram 20 MG Oral Tablet Citalopram 01/11/2019 08:36:56 AM EDT 30 MG completed [facility] Citalopram 20 MG Oral Tablet Citalopram 01/11/2019 08:36:56 AM EDT 30 MG completed [facility] Citalopram 20 MG Oral Tablet Citalopram 01/11/2019 08:36:56 AM EDT 30 MG completed [facility] Citalopram 20 MG Oral Tablet Citalopram 01/11/2019 08:36:56 AM EDT 30 MG completed [facility] Citalopram 20 MG Oral Tablet Citalopram 01/11/2019 08:36:56 AM EDT 30 MG completed [facility] Citalopram 20 MG Oral Tablet Citalopram 01/11/2019 08:36:56 AM EDT 30 MG completed [facility] Citalopram 20 MG Oral Tablet Citalopram 01/11/2019 08:36:56 AM EDT 30 MG completed [facility] Citalopram 20 MG Oral Tablet Citalopram 01/11/2019 08:36:56 AM EDT 30 MG completed [facility] meloxicam 7.5 MG Oral Tablet Meloxicam Meloxicam 12/06/2018 09:1 0:22 AM EDT 7.5 MG completed [facility] meloxicam 7.5 MG Oral Tablet Meloxicam Meloxicam 12/06/2018 09:1 0:22 AM EDT 7.5 MG completed [facility] meloxicam 7.5 MG Oral Tablet Meloxicam Meloxicam 12/06/2018 09:1 0:22 AM EDT 7.5 MG completed [facility] meloxicam 7.5 MG Oral Tablet Meloxicam Meloxicam 12/06/2018 09:1 0:22 AM EDT 7.5 MG completed [facility] meloxicam 7.5 MG Oral Tablet Meloxicam Meloxicam 12/06/2018 09:1 0:22 AM EDT 7.5 MG completed [facility] meloxicam 7.5 MG Oral Tablet Meloxicam Meloxicam 12/06/2018 09:1 0:22 AM EDT 7.5 MG completed [facility] meloxicam 7.5 MG Oral Tablet Meloxicam Meloxicam 12/06/2018 09:1 0:22 AM EDT 7.5 MG completed [facility] meloxicam 7.5 MG Oral Tablet Meloxicam Meloxicam 12/06/2018 09:1 0:22 AM EDT 7.5 MG completed [facility] meloxicam 7.5 MG Oral Tablet Meloxicam Meloxicam 12/06/2018 09:1 0:22 AM EDT 7.5 MG completed [facility] Divalproex Sodium 250 MG Delayed Release Oral Tablet Divalpr oex 12/06/2018 09:01:16 AM EDT completed [facility] Divalproex Sodium 250 MG Delayed Release Oral Tablet Divalpr oex 12/06/2018 09:01:16 AM EDT completed [facility] Divalproex Sodium 250 MG Delayed Release Oral Tablet Divalpr oex 12/06/2018 09:01:16 AM EDT completed [facility] Divalproex Sodium 250 MG Delayed Release Oral Tablet Divalpr oex 12/06/2018 09:01:16 AM EDT completed [facility] Divalproex Sodium 250 MG Delayed Release Oral Tablet Divalpr oex 12/06/2018 09:01:16 AM EDT completed [facility] Divalproex Sodium 250 MG Delayed Release Oral Tablet Divalpr oex 12/06/2018 09:01:16 AM EDT completed [facility] Divalproex Sodium 250 MG Delayed Release Oral Tablet Divalpr oex 12/06/2018 09:01:16 AM EDT completed [facility] Divalproex Sodium 250 MG Delayed Release Oral Tablet Divalpr oex 12/06/2018 09:01:16 AM EDT completed [facility] Divalproex Sodium 250 MG Delayed Release Oral Tablet Divalpr oex 12/06/2018 09:01:16 AM EDT completed [facility] 24 HR Bupropion Hydrochloride 300 MG Extended Release Oral Tablet Bupropion Hcl Bupropion Hcl 09/06/2018 09:28:00 AM EDT 300 MG complete [facility] 24 HR Bupropion Hydrochloride 300 MG Extended Release Oral Tablet Bupropion Hcl Bupropion Hcl 09/06/2018 09:28:00 AM EDT 300 MG complete [facility] 24 HR Bupropion Hydrochloride 300 MG Extended Release Oral Tablet Bupropion Hcl Bupropion Hcl 09/06/2018 09:28:00 AM EDT 300 MG complete [facility] 24 HR Bupropion Hydrochloride 300 MG Extended Release Oral Tablet Bupropion Hcl Bupropion Hcl 09/06/2018 09:28:00 AM EDT 300 MG complete [facility] 24 HR Bupropion Hydrochloride 300 MG Extended Release Oral Tablet Bupropion Hcl Bupropion Hcl 09/06/2018 09:28:00 AM EDT 300 MG complete [facility] 24 HR Bupropion Hydrochloride 300 MG Extended Release Oral Tablet Bupropion Hcl Bupropion Hcl 09/06/2018 09:28:00 AM EDT 300 MG complete [facility] 24 HR Bupropion Hydrochloride 300 MG Extended Release Oral Tablet Bupropion Hcl Bupropion Hcl 09/06/2018 09:28:00 AM EDT 300 MG complete [facility] 24 HR Bupropion Hydrochloride 300 MG Extended Release Oral Tablet Bupropion Hcl Bupropion Hcl 09/06/2018 09:28:00 AM EDT 300 MG complete [facility] 24 HR Bupropion Hydrochloride 300 MG Extended Release Oral Tablet Bupropion Hcl Bupropion Hcl 09/06/2018 09:28:00 AM EDT 300 MG complete [facility] 24 HR Bupropion Hydrochloride 300 MG Extended Release Oral Tablet Bupropion Hcl Bupropion Hcl 09/06/2018 09:28:00 AM EDT 300 MG complete d [facility] 24 HR Bupropion Hydrochloride 300 MG Extended Release Oral Tablet Bupropion Hcl Bupropion Hcl 09/06/2018 09:28:00 AM EDT 300 MG complete d [facility] Trazodone Hydrochloride 50 MG Oral Tablet Trazodone Hcl Traz odone Hcl 07/08/2018 08:40:00 AM EST completed [facility] Trazodone Hydrochloride 50 MG Oral Tablet Trazodone Hcl Traz odone Hcl 07/08/2018 08:40:00 AM EST completed [facility] Trazodone Hydrochloride 50 MG Oral Tablet Trazodone Hcl Traz odone Hcl 07/08/2018 08:40:00 AM EST completed [facility] Trazodone Hydrochloride 50 MG Oral Tablet Trazodone Hcl Traz odone Hcl 07/08/2018 08:40:00 AM EST completed [facility] Trazodone Hydrochloride 50 MG Oral Tablet Trazodone Hcl Traz odone Hcl 07/08/2018 08:40:00 AM EST completed [facility] Trazodone Hydrochloride 50 MG Oral Tablet Trazodone Hcl Traz odone Hcl 07/08/2018 08:40:00 AM EST completed [facility] Trazodone Hydrochloride 50 MG Oral Tablet Trazodone Hcl Traz odone Hcl 07/08/2018 08:40:00 AM EST completed [facility] Trazodone Hydrochloride 50 MG Oral Tablet Trazodone Hcl Traz odone Hcl 07/08/2018 08:40:00 AM EST completed [facility] Trazodone Hydrochloride 50 MG Oral Tablet Trazodone Hcl Traz odone Hcl 07/08/2018 08:40:00 AM EST completed [facility] Trazodone Hydrochloride 50 MG Oral Tablet Trazodone Hcl Traz odone Hcl 07/08/2018 08:40:00 AM EST completed [facility] Trazodone Hydrochloride 50 MG Oral Tablet Trazodone Hcl Traz odone Hcl 07/08/2018 08:40:00 AM EST completed [facility] gabapentin 400 MG Oral Capsule Gabapentin Gabapentin 2013 10:47:38 AM EDT 400 MG completed [facility] gabapentin 400 MG Oral Capsule Gabapentin Gabapentin 2013 10:47:38 AM EDT 400 MG completed [facility] gabapentin 400 MG Oral Capsule Gabapentin Gabapentin 2013 10:47:38 AM EDT 400 MG completed [facility] gabapentin 400 MG Oral Capsule Gabapentin Gabapentin 2013 10:47:38 AM EDT 400 MG completed [facility] gabapentin 400 MG Oral Capsule Gabapentin Gabapentin 2013 10:47:38 AM EDT 400 MG completed [facility] gabapentin 400 MG Oral Capsule Gabapentin Gabapentin 2013 10:47:38 AM EDT 400 MG completed [facility] gabapentin 400 MG Oral Capsule Gabapentin Gabapentin 2013 10:47:38 AM EDT 400 MG completed [facility] gabapentin 400 MG Oral Capsule Gabapentin Gabapentin 2013 10:47:38 AM EDT 400 MG completed [facility] gabapentin 400 MG Oral Capsule Gabapentin Gabapentin 2013 10:47:38 AM EDT 400 MG completed [facility] sildenafil 100 MG Oral Tablet [Viagra] Sildenafil (Via gra) 100 mg tablet Sildenafil (Viagra) 100 mg tablet 12/20/2012 10:04:00 AM EDT 100 MG completed [facility] sildenafil 100 MG Oral Tablet [Viagra] Sildenafil (Via gra) 100 mg tablet Sildenafil (Viagra) 100 mg tablet 12/20/2012 10:04:00 AM EDT 100 MG completed [facility] sildenafil 100 MG Oral Tablet [Viagra] Sildenafil (Via gra) 100 mg tablet Sildenafil (Viagra) 100 mg tablet 12/20/2012 10:04:00 AM EDT 100 MG completed [facility] sildenafil 100 MG Oral Tablet [Viagra] Sildenafil (Via gra) 100 mg tablet Sildenafil (Viagra) 100 mg tablet 12/20/2012 10:04:00 AM EDT 100 MG completed [facility] sildenafil 100 MG Oral Tablet [Viagra] Sildenafil (Via gra) 100 mg tablet Sildenafil (Viagra) 100 mg tablet 12/20/2012 10:04:00 AM EDT 100 MG completed [facility] sildenafil 100 MG Oral Tablet [Viagra] Sildenafil (Via gra) 100 mg tablet Sildenafil (Viagra) 100 mg tablet 12/20/2012 10:04:00 AM EDT 100 MG completed [facility] sildenafil 100 MG Oral Tablet [Viagra] Sildenafil (Via gra) 100 mg tablet Sildenafil (Viagra) 100 mg tablet 12/20/2012 10:04:00 AM EDT 100 MG completed [facility] Insurance Providers Payer name Policy type / Coverage type Policy ID Covered green party ID Covered green party's relationship to valentino Policy Valentino Plan Information MEDICARE [id number] SP [id number] [id number] SP [id number] [place] [id number] 18 [id number] [place] [id number] 18 [id number] SELF PAY [facility] [id number] SP [id number] SELF PAY SELF PAY [employer] MED[employer] - O/P [id number] 18 [id number] [facility] MEDICARE [id number] SP [id number] MEDICARE PART A-O/P [id number] 18 [id number] [place] [id number] 18 [id number] [employer] MEDICARE COMPLETE - O/P [id number] 18 [id number] [facility] Other 0 Self 0 Medicare P [id number] S [id number] a MEDICARE A [id number] Self [id number] MEDICARE PART A [id number] Patient [id number] MEDICARE PART A [id number] Patient [id number] UNICARE [id number] Patient [id number] MEDICARE A [id number] Self [id number] A MEDICARE-CLINIC [id number] undefined [id number] [facility] SVC OPTIONS C [id number] S [id number] MEDICARE C [id number] S [id number] A MEDICARE PART A -I/P [id number] 18 [id number] Medicare P [id number] S [id number] [place] Self Medicare P UNAVAILABLE S UNAVAILA BLE Medicare P [id number] S [id number] a MEDICARE -O/P [id number] 18 [id number] Problems, Conditions, and Diagnoses Code Display Name Description Problem Type Effective Dates Data Source(s) 72914355 Schizoaffective disorder, depressive typ e Schizoaffective disorder, depressive type Problem 04/18/2020 12:00:00 AM GENEVIEVE HAZEL ([facility]) Ventral hernia without obstruction or ga ngrene Ventral hernia without obstruction or gangrene Problem 02/06/2020 12:00:00 AM EDT MED[facility] ([facility]) 29254339 Essential hypertension Essential hypertension Problem 02/06/2020 12:00:00 AM EDT [facility] ([facility]) 47008693 Allergic rhinitis due to pollen Allergic rhiniti s due to pollen Problem 11/09/2019 12:00:00 AM EDT [facility] ([facility] Note: 3+ positive reaction to ragweed po llen on intradermal test. [id number] Allergic rhinitis due to house dust mite Allergic rhinitis due to house dust mite Problem 11/09/2019 12:00:00 AM EDT [facility] ([facility]) Note: 4+ reaction to dust mites and cock roaches on intradermal test. [id number] Essential hypertension Essential hypertension Problem 11/09/2019 12:00:00 AM EDT [facility] ([facility] ) F251 Schizoaffective disorder, depressive typ e Schizoaffective disorder, depressive type Diagnosis 06/06/2020 01:55:00 PM EST [facility] D48.5 Neoplasm of uncertain behavior of skin D 48.5 - Neoplasm of uncertain behavior of skin Diagnosis 03/04/2020 04:45:00 PM EDT [facility] NONPAR NONPAR Diagnosis 03/04/2020 02:51:00 PM ED T [facility] D48.5 Neoplasm of uncertain behavior of skin N EOPLASM OF UNCERTAIN BEHAVIOR OF SKIN Diagnosis 03/04/2020 02:51:00 PM EDT [facility] F17.200 Nicotine dependence, unspecified, uncomp licated F17.200 - Nicotine dependence, unspecified, uncomplicated Diagnosis 02/12/2020 12:00:00 A M EDT [facility] F12.10 Cannabis abuse, uncomplicated F12.10 - Cannabis abuse, uncomplicated Diagnosis 02/12/2020 12:00:00 AM EDT [facility] F19.10 Other psychoactive substance abuse, unco mplicated F19.10 - Other psychoactive substance abuse, uncomplicated Diagnosis 02/12/2020 12:00:00 AM EDT [facility] F43.10 Post-traumatic stress disorder, unspecif ied F43.10 - Post-traumatic stress disorder, unspecified Diagnosis 02/12/2020 12:00:00 AM ED[facility] F41.0 Panic disorder [episodic paroxysmal anxi ety] F41.0 - Panic disorder [episodic paroxysmal anxiety] Diagnosis 02/12/2020 12:00:[facility] Generalized anxiety disorder F41.1 - Generalized anxiety disorder Diagnosis 02/12/2020 12:00:00 AM EDT [facility] F31.2 Bipolar disorder, current episode manic severe with psychotic features F31.2 - Bipolar disorder, current episode manic severe with psychotic features Diagnosis 02/12/2020 12:00:00 AM EDT [facility] F22 Delusional disorders F22 - Delusional disorders Diagno sis 02/12/2020 12:00:00 AM EDT [facility] F341 Dysthymic disorder Dysthymic disorder Diagnosis 0 06:08:00 PM EDT [facility] I10 Essential (primary) hypertension Essential (primary) h ypertension Diagnosis 02/07/2020 06:08:00 PM EDT [facility] L538 Other specified erythematous conditions Other specified erythematous conditions Diagnosis 02/07/2020 06:08:00 PM EDT [facility] E860 Dehydration Dehydration Diagnosis 02/07/2020 06:08:00 PM EDT [facility] R110 Nausea Nausea Diagnosis 02/07/2020 06:08:00 PM ED T [facility] K420 Umbilical hernia with obstruction, witho ut gangrene Umbilical hernia with obstruction, without gangrene Diagnosis 02/06/2020 02:30:00 PM EDT [facility] K439 Ventral hernia without obstruction or ga ngrene Ventral hernia without obstruction or gangrene Diagnosis 02/06/2020 10:51:00 AM EDT [facility] Y[address] or not applicable Unspecified place or not applicable Diagnosis 05/29/2019 01:24:00 PM [facility] [id number] Exposure to other specified factors, ini tial encounter Exposure to other specified factors, initial encounter Diagnosis 05/29/2019 01:24:00 PM [facility] [id number] Strain of muscle, fascia and tendon of the posterior muscle group at thigh level, left thigh, initial encounter Strain of muscle, fascia and tendon of the posterior muscle group at thigh level, left thigh, initial encounter Diagnosis 05/29/2019 01:24:00 PM [facility] [id number] Sprain of unspecified site of left knee, initial encounter Sprain of unspecified site of left knee, initial encounter Diagnosis 05/29 01:24:00 PM [facility] [id number] Unspecified injury of left lower leg, in itial encounter Unspecified injury of left lower leg, initial encounter Diagnosis 05/29/2019 01:24:00 PM [facility] Surgeries/Procedures Procedure Description Date Indications Data Source(s) Psychiatric Diagnostic Evaluation 04/18/2020 12:00:00 AM [facility] ([facility]) Cytopathology procedure, preparation of smear, genital sourc e (procedure) 02/07/2020 12:00:[address] [facility] Cytopathology procedure, preparation of smear, genital sourc e (procedure) 02/07/2020 12:00:00 AM [facility] Cytopathology procedure, preparation of smear, genital sourc e (procedure) 02/07/2020 12:00:[address] [facility] Cytopathology procedure, preparation of smear, genital sourc e (procedure) 02/07/2020 12:00:[address] [facility] Blood culture for bacteria, including anaerobic screen (proc edure) 02/07/2020 12:00:00 AM [facility] Blood culture for bacteria, including anaerobic screen (proc edure) 02/07/2020 12:00:00 AM [facility] Computed tomography of abdomen and pelvis with contrast (pro cedure) 02/05/2020 09:21:00 PM [facility] Computed tomography of abdomen and pelvis with contrast (pro cedure) 02/05/2020 09:21:00 PM [facility] Computed tomography of abdomen and pelvis with contrast (pro cedure) 02/05/2020 09:21:00 PM [facility] Computed tomography of abdomen and pelvis with contrast (pro cedure) 02/05/2020 09:21:00 PM [facility] Computed tomography of abdomen and pelvis with contrast (pro cedure) 02/05/2020 09:21:00 PM EDT [facility] Computed tomography of abdomen and pelvis with contrast (pro cedure) 02/05/2020 09:21:00 PM EDT [facility] Computed tomography of abdomen and pelvis with contrast (pro cedure) 02/05/2020 09:21:00 PM EDT [facility] PERCUTANEOUS TESTS W/ALLERGENIC EXTRACTS 11/09/2019 12 :00:00 AM EDT [facility] ([facility]) INTRACUTANEOUS TESTS W/ALLERGENIC EXTRACTS 11/09/2019 12:00:00 AM EDT [facility] ([facility]) Results ID Date Data Source [id number] 06/22/2020 12:00:00 AM EST [facility] Name Value Range Interpretation Code Description Data [place] rce(s) Supporting Document(s) SARS-CoV-2 (COVID-19) RNA [Presence] in Respiratory specimen by RICARDO with probe detection Not Detected [facility] This lab was ordered by [facility] and reported by [employer]. ID Date Data Source [id number] 06/21/2020 06:08:00 PM [facility] Normal result is "BinaxNow Covid-19 Ag n egative"BinaxNow Covid-19 Ag is a rapid lateral flowimmunochromatographic immunoassayThis test detects both viable(live) and non-viable, SARS-COVand SARS-COV-2.Positive test results do not differentiate between SARS-COVand [id number] results , from patients with symptom onset beyondseven days, should be treated as presumptive andconfirmation with a molecular assay, if necessary, forpatient managementIf the differentiation of specific SARS viruses and strainsis needed, additional testing, in consultation with stateand local public health departments, is required.SARS-CoV-2 Ag Resp Ql IA.rapid Name Value Range Interpretation Code Description Data [place] rce(s) Supporting Document(s) ID Date Data Source [id number] 06/21/2020 05:19:00 PM EST [facility] Name Value Range Interpretation Code Description Data [place] rce(s) Supporting Document(s) SARS-CoV-2 (COVID-19) Ag [Presence] in R espiratory specimen by Rapid immunoassay BinaxNow Covid -19 Ag Negative [facility] This lab was ordered by [facility] and reported by [facility]. ID Date Data Source [id number] 06/21/2020 09:31:00 AM EST [facility] Patient Name: PIPRE LICEA : 1970 Sex: M Pt Unit #: [id number] Location:[facility] Provider: Visit Date/Time: 06/21/20 Primary Insurance: [employer] Secondary Insurance: Self Pay Intake Intake Visit Reasons: Telemed Visit Allergies dust mites Allergy (Severe, Uncoded 02/05/20 21:23) builds up drainage in eyes , post nasal drip rag weed Allergy (Severe, Uncoded 02/05/20 21:23) builds up eye drainage, post nasal drip Medications - Last Reconciled 06/21/20 by Kelli Mcmanus NP clonazepam 0.5 mg PO BID MDD 2 divalproex 500 mg PO TID 90 days lisinopril 40 mg PO DAILY 90 days meloxicam 7.5 mg PO BID 90 days olanzapine 20 mg (2 x 10 mg) PO QPM prazosin 1 mg PO BID 30 days sertraline 50 mg PO Q24H sertraline 100 mg PO Q24H syringe (disposable) (BD Luer-Yanira Tip Control Syringe) With 1 inch 23g needle. 30 days testosterone cypionate 200 mg IM Q2W 14 days MDD 300 HIV Testing Offer - ages 13-64 Requirement for HIV testing offer been met?: Declines today. Pretest education received and acknowledged Telephone visit Telephone/Virtual Visit Patient consented to consult via telephone or video: Yes Real-time synchronous services were performed via: Audio only (Phone) Names of people present:: Piper Licea Location of provider: Provider office Location of the Patient: Home Total time spent on medical discussion: 5 mins Coronavirus Screening Screening Have you traveled outside of [facility] or [facility] in the last 14 days.: No Has patient experienced coronavirus symptoms: Yes Coronavirus symptoms ex perienced: lower respiratory illness and Muscle, body aches or fatigue PFSH Medical History (Updated 06/21/20 @ 09:35 by Kelli Mcmanus NP) Depression Environmental allergies Hypertension Low testosterone in male Sleep apnea Suspicious nevus Surgical History (Updated 03/13/20 @ 10:46 by Kelli Mcmanus NP) History of cardiac radiofrequency ablation Umbilical hernia Family History Father No problems noted. Mother No problems noted. Social History (Updated 06/04/20 @ 13:19 by Emily Jorge) Does the Patient have a Healthcare Proxy: No Does Patient have a DNR?: No Does Patient have a Living Will?: No marital status: Single Hx Recent Travel (where): No Smoking Status: Former smoker how long ago did patient quit smokin yrs ago, uses smokless tobacco though alcohol intake: never Review of Systems Const Reports body aches, Reports chills, Reports fatigue, Reports fever(s) and Reports headache(s) ENT Reports facial pain, Reports headache(s), Reports nasal congestion and Reports nasal discharge Card Reports as per HPI Resp Reports as per HPI Neuro Reports headache(s) Endo Reports fatigue Exam Const General: cooperative and comfortable Orientation: alert, awake and oriented x3 Resp Effort Inspection: able to speak in complete sentences Assessment Plan Assessment Plan (1) Sinus pain: Status: Acute Code(s): J34.89 - Other specified disorders of nose and nasal sinuses SNOMED Code(s): 69531194 Category: Medical (2) Headache: Status: Acute Code(s): R51.9 - Headache, unspecified SNOMED Code(s): 63612483 Category: Medical Additional Comments Additional Comments: I will have him tested for COVID this evening. I will start an abx going into the weekend, given his symptoms have been going on over a week, but worsened over the past 2-3 days which is why I feel a COVID test is warranted. He is in agreement. Tele call 5 mins. Orders Other Medications: New: amoxicillin-pot clavulanate 875-125 mg 1 tab PO BID 10 days 20 tabs 0RF Time spent Total time spent on medical discussion: 5 mins Coding Level of Care Code Telemed Visit (5-10 min) Exam Problem Focused Diagnoses Sinus pain J34.89 Headache R51.9 <Electronically signed by Kelli Mcmanus SLIP COVER MAKER> 06/21/20 0938 Name Value Range Interpretation Code Description Data [place] rce(s) Supporting Document(s) ID Date Data Source [id number] 06/04/2020:18:00 PM [facility] Patient Name: PIPER LICEA : 1970 Sex: M Pt Unit [facility]: [id number] [facility]: Visit Date/Time: 06/04/20 Primary Insurance: [employer] Secondary Insurance: Self Pay Intake Vital Signs 06/04/20 13:25 Current Weight 265 lb Weight Measurement Method Standing Scale BP 140/80 Blood Pressure Location Rt brachial Position Sitting Respiration 22 Pulse 97 Pulse Source Pulse Oximeter Temp 99.2 F Temp Source Oral Pulse Oximetry (%) 97 Intake Visit Reasons: Depression follow-up Nurse Note: Pt taking 2 olanzapine per statement. It makes him sleep better. Pt has DMV paperwork tofill out. Apparently 2nd page didnt get done. Back and front. Needs testosterone and clonazepam reordered. Is patient in pain?: No Allergies dust mites Allergy (Severe, Uncoded 02/05/20 21:23) builds up drainage in eyes , post nasal drip rag weed Allergy (Severe, Uncoded 02/05/20 21:23) builds up eye drainage, post nasal drip Medications - Last Reconciled 06/04/20 by Kelli Mcmanus, ANTHONY clonazepam 0.5 mg PO BID MDD 2 divalproex 500 mg PO TID 90 days lisinopril 40 mg PO DAILY 90 days meloxicam 7.5 mg PO BID 90 days olanzapine 20 mg (2 x 10 mg) PO QPM prazosin 1 mg PO BID 30 days sertraline 50 mg PO Q24H sertraline 100 mg PO Q24H syringe (disposable) (BD Luer-Yanira Tip Control Syringe) With 1 inch 23g needle. 30 days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 APPEARANCE,UR CLEAR CLEAR [facility] PH,UR 6.0 5.0-8.0 [facility] SPECIFIC GRAVITY,UR 1.008 1.002-1.035 N [facility] PROTEIN,UR 30 MG/DL NEGATIVE A [facility] GLUCOSE, UR NEGATIVE MG/DL NEGATIVE [facility] KETONES,UR 80 MG/DL NEGATIVE [facility] OCCULT BLOOD,UR NEGATIVE NEGATIVE [facility] NITRATE,UR NEGATIVE NEGATIVE [facility] LEUKOCYTE ESTERASE ,UR NEGATIVE NEGATIVE [facility] BILIRUBIN,UR NEGATIVE NEGATIVE [facility] UROBILINOGEN,UR 0.2-1.0 EU MG/DL NEG-0-1.0 [facility] ID Date Data Source [id number] 02/12/2020 12:24:00 AM EDT [facility] Name Value Range Interpretation Code Description Data [place] rce(s) Supporting Document(s) OPIATE SCREEN NEG NEGATIVE [facility] Minimum Detectable Limit is 300 ng/mL. BARBITURATE SCREEN NEG NEGATIVE [facility] Minimum Detectable Limit is 300 ng/mL. PHENCYCLIDINE SCREEN NEG NEGATIVE [facility] Minimum Detectable Limit is 25 ng/mL. AMPHETAMINE SCREEN NEG NEGATIVE [facility] Minimum Detectable Limit is 1000 mg/mL. BENZODIAZEPINE SCREEN POS NEGATIVE [facility] Mininum Detectable Limit is 300 ng/mL. COCAINE SCREEN NEG NEGATIVE [facility] Minimum Detectable Limit is 300 ng/mL. CANNABINOID SCREEN NEG NEGATIVE [facility] Minimum Detectable limit is 50 ng/dL. HEROIN SCREEN NEG NEGATIVE [facility] Minimum Detectable limit is 10 ng/dL. A ll POSITIVE or BORDER results are unconfirmed. Please contact the laboratory if a reference testing confirmation is needed. ID Date Data Source [id number] 02/12/2020 12:21:00 AM EDT [facility] Has Patient Fasted For The Past 12 Hour s? N Has Patient Fasted For The Past 12 Hour s? N Has Patient Fasted For The Past 12 Hour s? N Has Patient Fasted For The Past 12 Hour s? N Has Patient Fasted For The Past 12 Hour s? N Name Value Range Interpretation Code Description Data [place] rce(s) Supporting Document(s) WHITE BLOOD COUNT 14.58 10^3/uL 4.00-10.50 H [facility] RED BLOOD COUNT 6.19 10^6/uL 4.30-5.80 [facility] HEMOGLOBIN 18.7 G/DL 13.0-17.5 H [facility] Critical Results for H&H Ratio. Ch ceasar for possible cryoprecipitates. HEMATOCRIT 52.7 % 41.0-53.0 N [facility] MCV 85.1 FL 80.0-100.0 [facility] MCH 30.2 PG 27.0-34.0 N [facility] MCHC 35.5 G/DL 32-36 N [facility] RDW 13.1 % 11.5-14.5 N [facility] PLATELET COUNT 290 10^3/uL 130-400 N [facility] MPV 10.0 FL 8.7-13.2 N [facility] GRAN % (AUTO) 76.7 % 42.0-75.0 [facility] LYMPH % (AUTO) 16.2 % 20.0-51.0 L [facility] MONO % (AUTO) 6.6 % 2.0-15.0 N [facility] EOS % (AUTO) 0.0 % 0.0-11.0 N [facility] BASO % (AUTO) 0.2 % 0.0-2.0 N [facility] IG % (AUTO) 0.3 % 1.00-5.00 [facility] IG # (AUTO) 0.1 10^3/uL <0.5 [facility] GRAN # (AUTO) 11.18 10^3/uL 1.50-6.50 [facility] LYMPH # (AUTO) 2.4 k/uL 1.0-5.0 N [facility] MONO # (AUTO) 0.96 k/uL 0.20-1.50 N [facility] EOS # (AUTO) 0.00 10^3/uL 0.00-1.10 N [facility] BASO # (AUTO) 0.03 10^3/uL 0.00-0.20 N [facility] ID Date Data Source [id number] 02/12/2020 12:33:00 AM EDT [employer] Has Patient Fasted For The Past 12 Hour s? N Has Patient Fasted For The Past 12 Hour s? N Has Patient Fasted For The Past 12 Hour s? N Has Patient Fasted For The Past 12 Hour s? N Has Patient Fasted For The Past 12 Hour s? N Name Value Range Interpretation Code Description Data [place] rce(s) Supporting Document(s) SODIUM 136 MEQ/L 135-145 N [facility] POTASSIUM 4.4 MEQ/L 3.5-5.3 N [facility] CHLORIDE 101 MEQ/L 94-110 N [facility] CARBON DIOXIDE 20 MEQ/L 22-33 L [facility] ANION GAP 19 5-16 H [facility] BLOOD UREA NITRO 7 MG/DL 7-25 N [facility] CREATININE 0.8 MG/DL 0.6-1.4 N [facility] GFR > 90.0 ML/MIN [facility] Stage G1 - Normal or high kidney functi on The GFR is an estimate of the Glomerular Filtration Rate. It is an aid to assess a patient's renal function. It is not a conclusive diagnosis of kidney disease. GFR normal is >=90 The MDRD GFR calculation is considered valid between the ages of 18 and 75 years only. BUN/CREAT RATIO 8 8-36 N [facility] GLUCOSE 119 MG/DL 70-100 H [facility] CA 10.4 MG/DL 8.7-10.5 N [facility] BILIRUBIN,TOTAL 1.1 MG/DL 0.1-1.3 N [facility] AST 39 U/L 5-40 N [facility] ALT 65 U/L 5-48 H [facility] ALKALINE PHOSPHATASE 72 U/L 40-140 [facility] alth TOTAL PROTEIN 7.2 G/DL 5.9-8.3 N [facility] ALBUMIN 5.4 G/DL 3.0-5.1 H [facility] GLOBULIN 1.8 G/DL 1.5-3.5 [facility] ALB/GLOB RATIO 3.0 G/DL 1.0-3.0 [facility] ID Date Data Source [id number] 02/12/2020 12:33:[address] [facility] Has Patient Fasted For The Past 12 Hour s? N Has Patient Fasted For The Past 12 Hour s? N Has Patient Fasted For The Past 12 Hour s? N Has Patient Fasted For The Past 12 Hour s? N Has Patient Fasted For The Past 12 Hour s? N Name Value Range Interpretation Code Description Data [place] rce(s) Supporting Document(s) TSH 2.004 uIU/ML 0.470-4.200 N [facility] Patients should not be tested for 73 ho urs post fluorescein dye angiography. A false depression of result may occur. ID Date Data Source [id number] 02/12/2020 12:33:[address] [facility] Has Patient Fasted For The Past 12 Hour s? N Has Patient Fasted For The Past 12 Hour s? N Has Patient Fasted For The Past 12 Hour s? N Has Patient Fasted For The Past 12 Hour s? N Has Patient Fasted For The Past 12 Hour s? N Name Value Range Interpretation Code Description Data [place] rce(s) Supporting Document(s) SALICYLATE < 3.0 MG/DL 2.8-20.0 N [facility] ID Date Data Source [id number] 02/12/2020 12:33:00 AM EDT [facility] Has Patient Fasted For The Past 12 Hour s? N Has Patient Fasted For The Past 12 Hour s? N Has Patient Fasted For The Past 12 Hour s? N Has Patient Fasted For The Past 12 Hour s? N Has Patient Fasted For The Past 12 Hour s? N Name Value Range Interpretation Code Description Data [place] rce(s) Supporting Document(s) ACETAMINOPHEN < 2.0 UG/ML 10-30 [facility] High levels of N-acetylcysteine (used t o treat Acetaminophen overdose) may cause interference and cause a negative bias in the Acetaminophen result. ID Date Data Source [id number] 02/12/2020 12:33:00 AM EDT [facility] Has Patient Fasted For The Past 12 Hour s? N Has Patient Fasted For The Past 12 Hour s? N Has Patient Fasted For The Past 12 Hour s? N Has Patient Fasted For The Past 12 Hour s? N Has Patient Fasted For The Past 12 Hour s? N Name Value Range Interpretation Code Description Data [place] rce(s) Supporting Document(s) BLOOD ALCOHOL < 0.03 % <0.03 [facility] ID Date Data Source [id number] 02/08/2020 12:11:00 [place] [address] PHONE: [phone] FAX: [phone] Name .................. : NATALIYA [place] Acct Number.................. : [id number] ROOM. ................. : TR-06 MR Number ................... : [id number] Stay type ............. : E/R Discharge Date......... ... : Admit Date ......... : 0 02/07/20 Admit Phys .................... : COONEYNORM Date of ....... : 1970 Family Phys ................... : YONATHAN COR Phone .................. : [phone] Age ................................ : 49 Film# .................. .:[id number] Sex ................................. : M Unsigned transcriptions are preliminary reports and do not represent a medical or legal document CT ABD & PELVIS W/ IV ONLY [id number] COMPLETE:02/07/20 18:42 [id number] Reason(s): Pending CMP: Abd pain s/p surgery; ? infection CT OF THE ABDOMEN AND PELVIS WITH CONTRAST: INDICATION: Abdominal pain status post surgery. FINDINGS: The chest space is clear. There is normal contrast-enhanced CT appearance of the liver, spleen, pancreas, adrenal glands and kidneys. There is a small hiatal hernia. No gallbladder wall thickening or biliary duct dilatation. The visualized bowel is normal in caliber. There is a small stump of the appendix which appears normal. The umbilicus demonstrates a 1.9 cm fat-containing hernia. There is a small amount of air measuring approximately 1.6 cm just superior to the umbilicus, possibly from a laparoscopic port incision. There is no free air or free fluid in the abdomen. The visualized bladder is normal. The pelvic organs appear normal. No acute osseous abnormality. No lymphadenopathy. IMPRESSION: 1. No free air or abscess. 2. Small flecks of air in an area measuring approximately 1.6 cm just superior to the umbilicus likely at the site of a laparoscopic port insertion. This is likely due to laparoscopic port insertion. Depending on how long ago the surgery was, this may represent a small area of necrotizing infection versus postoperative change. Page 1 of 2 [facility] [address] [place] [address] [place] [address] PHONE: [phone] FAX: [phone] Name .................. : NATALIYA Spain Acct Number.................. : [id number] ROOM. ................. : TR-06 MR Number ................... : [id number] Stay type ............. : E/R Discharge Date......... ... : Admit Date ......... : 02/07/20 Admit Phys .................... : COSAMY Date of ....... : 1970 Family Phys ................... : YONATHAN GONZALEZ Phone .................. : [phone] Age ................................ : 49 Film# .................. .:[id number] Sex ................................. : M Unsigned transcriptions are preliminary reports and do not represent a medical or legal document CT ABD & PELVIS W/ IV ONLY [id number] COMPLETE:02/07/20 18:42 [id number] Reason(s): Pending CMP: Abd pain s/p surgery; ? infection While performing the above CT examination, radiation dose reduction was accomplished utilizing automated exposure control, adjusting of the mA and kV based on the patient's body size and/or the use of imperative reconstructive techniques. CT dose: 866.3 mGycm Contrast agent in mL: 75 Isovue 370 Method of administration: Intravenous Electronically Reviewed and Signed By Bethel Garcia M.D. , 02/08/20 12:11, [place] Transcribe Initials: CRISTIANO , Transcribe Date: 02/07/20 22:16, Dictation Date: Copy for: MYRANDA CABRERA via fax Copy for: EMERGENCY DEPT via modem Copy for: 710 MED REC DISCHARGED Page 2 of 2 Name Value Range Interpretation Code Description Data [place] rce(s) Supporting Document(s) ID Date Data Source [id number] 02/07/2020 06:08:00 PM EDT [facility] 1 OrderSheet [facility] Emergency Department [address] [place] [address] Phone #: [phone] 02/07/2020 18:07 Patient: PIPER LICEA Sex: M : 1970 Age: 49yWEIGHT:114.3 kg (M) HEIGHT:70 inches (M) BMI:36.2ALLERGIES: No Known Drug AllergyCHIEF COMPLAINT: abdominal painDIAGNOSIS: Abdominal painLAB ORDERSOrder Description Priority Entered Acknowledged InitialedCBC w Diff STAT 18:42 02/07/2020 18:52 Israel Langley R.N., P.A.-C;CMP STAT 18:42 02/07/2020 18:52 Israel Langley R.N., P.A.-C;Lipase STAT 18:42 02/07/2020 18:52 Israel Langley R.N., P.A.-C;Urinalysis (Clean STAT 18:42 02/07/2020 19:42 Maya Langley) Israel ChAWandy- C;Lactic Acid STAT 18:42 02/07/2020 18:52 Israel Langley R.N. PWandyA.-C;Blood Culture STAT 18:42 02/07/2020 18:52 Shivam,q10m X2 (Sched Israel Yap R.N.18:42 02/07/2020) P.A.-C;Blood Culture STAT 18:42 02/07/2020 18:52 Shivam,q10m X2 (Sched Israel Yap R.N.18:52 02/07/2020) P.A.-C;Troponin-T STAT 18:42 02/07/2020 18:52 Israel Langley R.N.A.- C;PT/INR STAT 18:45 02/07/2020 18:52 Israel Langley R.N.A.-C;DIAGNOSTIC STUDY ORDERSOrder Description Priority Entered Acknowledged InitialedCT Abd PEL W/ IV STAT 18:02/07/2020 20:55 Shivam, 2 OrderS [facility] Emergency Department [address] [place] [address] Phone #: ext- [phone] 02/07/2020 18:07 Patient: PIPER LICEA Sex: M : 1970 Age: 49yContrast Only Israel Yap R.N.(Oxygen?(No)) P.A.-C;(IV?(Yes)) Reason for Study: Pending CMP: Abd pain s/p surgery; ? infectionMEDICATION/IV/DRIP/FLUID ORDERSOrder Description Priority Entered Acknowledged InitialedIV NS : Bolus 500 18:42 02/07/2020 19:11 Shivam,Maria Fernanda, then 75 mL/hr Israel ChAWandy-C;Zofran IVP 4 mg 18:02/07/2020 19:11 Israel Langley R.N. P.A.-C;Dilaudid IVP 1 mg 18:42 02/07/2020 19:12 Shivam,(HIGH ALERT Israel Yap R.N.MEDICATION) P.A.-C;Rocephin 21:54 02/07/2020 22:06 Shivam,(1gm/50mL) IVPB Israel Yap R.N.1000 mg with P.A.-C;Dextrose 50 mlspike bag (D5W)GENERAL ORDERSOrder Description Priority Entered Acknowledged InitialedNPO 18:42 02/07/2020 18:52 Israel Langley R.N. P.A.-C;Saline Lock 18:42 02/07/2020 18:52 Israel Langley R.N. P.A.-C;EKG 18:42 02/07/2020 18:52 Israel Langley R.N. P.A.-C;Account Representative 18:42 02/07/2020 18:52 Shivam(continuous) Israel Yap R.N. P.A.-C;Blood Pressure 18:42 02/07/2020 18:52 Shivam,Monitor Israel Yap R.N. P.A.-C;Pulse oximeter 18:42 02/07/2020 18:52 Shivam(Continuous) Israel Yap R.N. P.A.-C; 3 OrderSheet [facility] Emergency Department [address] [place] [address] Phone #: ext- [phone] 02/07/2020 18:07 Patient: PIPER LICEA Sex: M : 1970 Age: 49y[Electronically signed by Ector Maravilla RN (00:04 02/08/2020)][Electronically signed by Israel PuriAWandy-Meri (10:27 02/08/2020)][Electronically locked by Ector Maravilla RN (00:04 02/08/2020)] Name Value Range Interpretation Code Description Data Geneva rce(s) Supporting Document(s) ID Date Data Source [id number] 02/07/2020 06:08:00 PM EDT [facility] 1 Medication Reconciliation Report [facility] Emergency Department [address] [place] [address] Phone #: ext- [phone] 02/07/2020 18:07 Patient: PIPER LICEA Sex: M : 1970 Age: 49yWeight: 114.3 kgHeight/Length: 70 in.BMI: 36.2ALLERGIES: No Known Drug AllergyThe patient's Home Medications are listed below:THE FOLLOWING MEDICATIONS NEED TO BE RECONCILED: CeleXA Oral 40 mg, daily, at bedtime Depakote Oral 500 mg, daily Meloxicam Oral (7.5 mg) 1 tablet, 2x a day Xanax Oral 0.5 mg, dailyThe source(s) of the original Home Medication information:patientThe following Medications were given to the patient in the Emergency Department:IV NS IV Fluids bolus 0, then 1000 mL/hr, administered: 02/07/2020 7:11:00 PMZofran [IVP] IVP 4 mg, administered: 02/07/2020 7:11:00 PMDilaudid [IVP] IVP 1 mg, administered: 02/07/2020 7:12:00 PMROCEPHIN (1GM/50ML) [IVPB] IVPB bolus 0, then 1 gm 100 mL/hr, administered: 02/07/2020 10:06:00 PMThe following Medications were prescribed to the patient:None. Name Value Range Interpretation Code Description Data Geneva rce(s) Supporting Document(s) ID Date Data Source [id number] 02/07/2020 06:08:00 PM EDT [facility] 1 Medication Administration Record [facility] Emergency Department [address] [place], [place] [id number] Phone #: ext- [phone] 02/07/2020 18:07 Patient: PIPER LICEA Sex: M : 1970 Age: 49yWeight: 114.3 kgHeight/Length: 70 inBMI: 36.2ALLERGIES: No Known Drug Allergy Date/Time Medication Administered Medication OrderedStart IV NS IV NS : Bolus 500 mL, then 7519:11 02/07/2020 Dose: IV Fluids mL/hrSFracisco torres R.N. Rate: 1000 mL/hr over 30 minute(s)---- Dispensed: 500 mL bagStop Site: #1 left wrist23:48 02/07/2020Ector Maravilla RNGiven ZOFRAN [IVP] (ONDANSETRON HCL) Zofran IVP 4 mg19:11 02/07/2020 Dose: 4 mg IVPSFracisco torres R.N. Site: #1 left wristGiven DILAUDID [IVP] (HYDROMORPHONE Dilaudid IVP 1 mg (HIGH ALERT19:12 02/07/2020 HCL) MEDICATION)Fracisco Langley R.N. Dose: 1 mg IVP Site: #1 left wristStart ROCEPHIN (1GM/50ML) [IVPB] Rocephin (1gm/50mL) IVPB 390816:06 02/07/2020 (CEFTRIAXONE SODIUM) mg with Dextrose 50 ml spike Fracisco Rider R.N. Dose: 1 gm IVPB (D5W)---- Rate: 100 mL/hr over 30 minute(s)Stop Dispensed: 50 mL bag22:36 02/07/2020 Site: #1 left Dina Maravilla RN Name Value Range Interpretation Code Description Data Geneva rce(s) Supporting Document(s) ID Date Data Source [id number] 02/07/2020 06:08:00 PM EDT [facility] 1 General Instructions [facility] Emergency Department [address] [place] [address] Phone #: ext- [phone] 02/07/2020 18:07 Patient: PIPER LICEA Sex: M : 1970 Age: 49yAcute periumbilical abdominal pain of unknown cause. ADDITIONAL INFORMATIONUnknown Causes of Abdominal Pain (Male)Based on your visit today, the exact cause of your abdominal pain is not clear. Your exam and testsdon't suggest a dangerous cause at this time. However, the signs of a serious problem may takemore time to appear. Although your evaluation was reassuring today, sometimes early in the courseof many conditions, exam and lab tests can appear normal. Therefore, it is important for you to watchfor any new symptoms or worsening of your condition.It may not be obvious what caused your symptoms. Pay attention to things that do seem to makeyour symptoms worse or better and discuss this with your doctor when you follow up.The evaluation of abdominal pain in the emergency department may only require an exam by thedoctor or it may include blood, urine or imaging studies, depending on many factors. Sometimesexams and tests can identify a cause but in many cases, a clear cause is not found. Further testing atfollow up visits may help to suggest a clear diagnosis.Home care Rest as much as you can until your next exam. Try to avoid any medicines (unless otherwise directed by your doctor), foods, activities, or other factors that may have contributed to your symptoms. Try to eat foods that you know that you have tolerated well in the past. Certain diets may be recommended for some conditions that cause abdominal pain. However, since the cause of your symptoms may not be clear, discuss your diet more with your healthcare provider or specialist for further recommendations. If you have diarrhea, it may help to avoid dairy (l actose) for the time being. A low fat, low fiber diet can also help. Eating several small meals per day as opposed to 2 or 3 larger meals may help. Avoid dehydration. Make sure to drink plenty of water. Other options include broth, soup, gelatin, sports drinks, or other clear liquids. 2 General Instructions [facility] Emergency Department [address] [place] [address] Phone #: [phone]- [phone] 02/07/2020 18:07 Patient: PIPER LICEA Sex: M : 1970 Age: 49y Watch closely for anything that may make your symptoms worse or better. Pay close attention to symptoms below that may mean your condition is getting worse.Follow-up careFollow up with your healthcare provider if your symptoms are not improving, or as advised. In somecases, you may need more testing.When to seek medical adviceCall your healthcare provider right away if any of these occur: Pain is becoming worse You are unable to take your medicines or can't keep water down due to excessive vomiting Swelling of the abdomen Fever of 100.4F (38C) or higher, or as directed by your healthcare provider Blood in vomit or frances wel movements (dark red or black color) Jaundice (yellow color of eyes and skin) New onset of weakness, dizziness or fainting New onset of chest, arm, back, neck or jaw pain [id number] [employer]. [address] [place] [address]. All rights reserved. This information is not intended as asubstitute for professional medical care. Always follow your healthcare professional's instructions. You have been given the following additional information: Unknown Causes of Abdominal Pain (Male)(Electronically signed by Israel Puri P.A.-C 02/08/2020 10:27) Name Value Range Interpretation Code Description Data Geneva rce(s) Supporting Document(s) ID Date Data Source [id number] 02/07/2020 06:08:00 PM EDT [facility] 1 Clinical Report - Nurses [facility] Emergency Department [address] [place] [address] Phone #: ext- [phone] 02/07/2020 18:07 Patient: PIPER LICEA Sex: M : 1970 Age: 49yTRIAGEArrived by EMS. Historian: patient.Acuity: LEVEL 3.Chief Complaint: ABDOMINAL PAIN and NAUSEA and (dizzziness).Alert. No acute distress.This started last night. ( patient had a abd hernia repair yesterday by here at [facility]. States painis 04/09, with severe nausea. denies vomiting.). No diarrhea, constipation or fever. Last oral intake bypatient was lunch today.Treatment SENIOR TECHNICAL MANAGER:Took Tylenol.EMS Treatment SENIOR TECHNICAL MANAGER:See EMS report.SEPSIS SCREEN: Sepsis Screen negative. No suspected or confirmed signs of infection present. --18:169 Maribel Perez R.N.18:08 02/07/20. BP: 150/97. MAP: 114. HR: 95. RR: 18. O2 saturation: 99%. Temp: 99 F. Pain level now:03/09. --18:16 02/07/20 Maribel Perez R.N.Weight: 114.3 kg measured. Height/Length: 70 inches Measured. BMI: 36.2. --18:08 02/07/20 Maribel Perez R.N.MedicationsCeleXA Oral 40 mg, daily at bedtime. Depakote Oral 500 mg, daily. Meloxicam Oral (Tablet Disintegrating 7.5 mg) 1 tablet, 2x a day. Xanax Oral 0.5 mg, daily. --18:13 02/07/20 Maribel Perez R.N.The following entry was struck and corrected by Maribel Perez R.N., 18:15 (02/07/20) Reason forcorrection - other(correction). Xanax Oral. --18:13 02/07/20 Chris, Maribel, R.N.The following entry was struck and corrected by Maribel Perez R.N., 18:14 (02/07/20) Reason forcorrection - other(correction). Meloxicam Oral. --18:13 02/07/20 Maribel Perez R.N.The following entry was struck and corrected by Maribel Perez R.N., 18:14 (02/07/20) Reason forcorrection - other(correction). CeleXA Oral. --18:13 02/07/20 Maribel Perez R.N. 2 Clinical Report - Nurses [facility] Emergency Department [address] [place] [address] Phone #: ext- [phone] 02/07/2020 18:07 Patient: PIPER LICEA Sex: M : 1970 Age: 49y The following entry was struck and corrected by Maribel Perez R.N., 18:14 (02/07/20) Reason for correction - other(correction). Depakote Oral. --18:13 02/07/20 Maribel Perez R.N. The following entry was struck by Maribel Perez R.N., 18:14 (02/07/20) Reason - other. Gabapentin Oral. --18:13 02/07/20 Maribel Perez R.N. . Allergies No Known Drug Allergy. --18:13 02/07/20 Maribel Perez R.N. Medication/allergy information source: the patient. --18:16 02/07/20 Maribel Perez R.N. History PAST MEDICAL HX: Immunizations: status is unknown. Last oral intake by patient was lunch today. SOCIAL HX: Smoker- current status unknown (chewing tobacco). No alcohol use or drug use. No recent travel. No known contact with a sick individual. The patient was offered HIV testing but declined and hepatitis C testing but declined. The patient has not traveled outside the [place] Infectious disease exposure: No infectious disease exposure. The patient was not exposed to C-diff, MRSA, VRE, CRE or Coronavirus. SELF HARM ASSESSMENT: Self harm assessment was performed. The patient answered "no" to the question(s) "Have you recently felt down, depressed, or hopeless?", "Do you have thoughts of harming or killing yourself?", "Do you have a plan for harming or killing yourself?", "Have you recently had thoughts about harming or killing others?", "Do you have any dangerous items in your possession?", "Have you noticed less interest or pleasure in doing things?", "Are you here because you tried to hurt yourself?" and "Have you ever tried to hurt yourself before today?". ABUSE ASSESSMENT: No report of abuse. NUTRITIONAL RISK ASSESSMENT: The nutritional risk assessment revealed no deficiencies. FUNCTIONAL ASSESSMENT: Functional assessment: no impairments noted. LEARNING NEEDS ASSESSMENT: The learning needs assessment revealed no barriers. FALL RISK ASSESSMENT: Fall risk assessment completed. No risk factors identified. SKIN INTEGRITY ASSESSMENT: Skin integrity risk assessment completed. No skin integrity risk identified. --18:16 02/07/20 Maribel Perez R.N. Interventions Identification band on patient. --18:16 02/07/20 Maribel Perez R.N.PHYSICAL ASSESSMENTGENERAL / NEURO / PSYCH: Alert. Oriented X 4. Appears in no acute distress. 3 Clinical Report - Nurses [facility] Emergency Department [address] [place] [address] Phone #: ext- [phone] 02/07/2020 18:07 Patient: PIPER LICEA Sex: M : 1970 Age: 49y HEENT: Mucous membranes are pink. RESPIRATORY: Respirations not labored. Breath sounds within normal limits. CVS: Normal sinus rhythm noted. Capillary refill less than 2 seconds. GI / : Abdomen soft and nontender. Bowel sounds within normal limits. Normal genitalia. SKIN: Skin is warm and dry. --20:35 02/07/20 Fracisco Langley R.N.NURSING PROGRESS NOTESPatient gowned. Head of bed elevated. Reassurance given. Call light placed in reach. Bed placed inlowest position. Brakes of bed on. --18:16 02/07/20 Maribel Perez R.N. 19:10 02/07/2020 Site #1 started via IV in the left wrist with an 18g angiocath, with aseptic technique and good blood return; one attempt. Saline lock flushed with 10 mL saline. --19:10 02/07/20 Fracisco Langley R.N. 19:11 02/07/2020 Started bag #1 500 mL IV Fluids IV NS; at 1000 mL/hr over 30 minute(s) via site #1 via IV pump. Allergies verified and confirmed 5 rights. IV patency established. IV site checked: no pain, redness, or swelling. IV flushed thoroughly pre- and post- medication administration. Information reviewed with patient including reason for taking this medication, signs of allergic reaction and precautions. Verbalizes understanding. --19:11 02/07/20 Fracisco Langley R.N. 19:11 02/07/2020 Zofran (Ondansetron HCl) IVP 4 mg given over 2 minute(s) via site #1. Allergies verified and confirmed 5 rights. IV patency established. IV site checked: no pain, redness, or swelling. IV flushed thoroughly pre- and post-medication administration. IVP given by RN. Information reviewed with patient including reason for taking this medication, signs of allergic reaction and precautions. Verbalizes understanding. --19:11 02/07/20 Fracisco Langley R.N. 19:12 02/07/2020 Dilaudid (HYDROmorphone HCl) IVP 1 mg given over 2 minute(s) via site #1. Allergies verified and confirmed 5 rights. IV patency established. IV site checked: no pain, redness, or swelling. IV flushed thoroughly pre- and post- medication administration. IVP given by RN. Information reviewed with patient including reason for taking this medication, signs of allergic reaction, precautions and sedative warning. Verbalizes understanding. --19:12 02/07/20 Fracisco Langley R.N. Reassessment acuity: LEVEL 3. The patient reports no complaints, he is calm and resting quietly and he has had no adverse reaction. Overall patient status is improved- he states feels better. ( softball size reddened area surrounding umbilicus w/hematoma about 1.5 x2.5cm at umbilicus). GI / : Abdomen soft and nontender. Bowel sounds within normal limits. SKIN: Skin is warm and dry. Two patient identifiers checked. Call light placed in reach. Side rails up x 2. Bed placed in lowest position. Brakes of bed on. --20:06 02/07/20 Fracisco Langley R.N. 20:03 02/07/20. BP: 149/94. MAP: 112. HR: 95. RR: 16. O2 saturation: 95%. Temp: 98.9 F. Pain level now: 10/07. --20:06 02/07/20 Fracisco Langley R.N. The patient reports no complaints, he is calm and resting quietly and he has had no adverse reaction. Overall patient status is improved. ( at surgical site, skin reddened around umbilicus, about 4 to 5 inch diameter, w/hematoma 1.5 x 2.5 just above umbilicus). 4 Clinical Report - Nurses [facility] Emergency De partment [address] [place] [address] Phone #: ext- [phone] 02/07/2020 18:07 Patient: PIPER LICEA Sex: M : 1970 Age: 49yGI / : Abdomen soft. Abdominal tenderness. Bowel sounds within normal limits.SKIN: Skin is warm and dry. Skin color within normal limits. Two patient identifiers checked. Call lightplaced in reach. Side rails up x 2. Bed placed in lowest position. Brakes of bed on. --20:38 02/07/20Fracisco torres R.N.20:35 02/07/20. BP: 165/89. MAP: 114. HR: 75. RR: 16. O2 saturation: 97%. Temp: 98.9 F. Pain levelnow: 10/07. --20:38 02/07/20 Fracisco Langley R.N.EKG time: (20:32 02/07/2020). EKG was performed by a nurse and shown to the PA. --20:39 02/07/20Eb Borges R.N.20:55 02/07/2020 Dilaudid IVP Response: no adverse reaction pain is improving. Symptoms haveimproved the patient feels better. --20:55 02/07/20 Fracisco Langley R.N.Reassessment acuity: LEVEL 3. The patient reports no complaints, he is calm and resting quietly and hehas had no adverse reaction. Overall patient status is improved- he states feels better.GI / : Abdomen soft and nontender. Bowel sounds within normal limits.SKIN: Skin is warm and dry. Skin color within normal limits. Patient transported to CT by wheelchair.Two patient identifiers checked. Call light placed in reach. Side rails up x 2. Bed placed in l owestposition. Brakes of bed on. --20:56 02/07/20 Fracisco Langley R.N.21:34 02/07/20. BP: 152/98. MAP: 116. HR: 76. RR: 16. O2 saturation: 96%. Temp: 98.8 F. Pain levelnow: 09/07. --21:36 02/07/20 Fracisco Langley R.N.Two patient identifiers checked. Call light placed in reach. Side rails up x 2. Bed placed in lowestposition. Brakes of bed on. --21:36 02/07/20 Fracisco Langley R.N.22:06 02/07/2020 Started 1 gm of ROCEPHIN (1GM/50ML) (cefTRIAXone Sodium) IVPB in bag #1 50 mL;at 100 mL/hr over 30 minute(s) via site #1. via IV pump. Allergies verified and confirmed 5 rights. IVpatency established. IV site checked: no pain, redness, or swelling. IV flushed thoroughly pre- andpost-medication administration. Information reviewed with patient including reason for taking thismedication, signs of allergic reaction and precautions. Verbalizes understanding. --22:06 02/07/20 Fracisco Langley R.N.22:36 02/07/2020 ROCEPHIN (1GM/50ML) IVPB via IV site #1 Discontinued: completed. Total amountinfused: 50 mL. IV patency established. IV site checked: no pain, redness, or swelling. IV flushedthoroughly. --23:46 02/07/20 Ector Maravilla RN23:48 02/07/2020 IV Fluids IV NS via IV site #1 Discontinued: discontinued. Total amount infused: 800 mL.IV patency established. IV site checked: no pain, redness, or swelling. IV flushed thoroughly. --00: Ector Maravilla RN.Intake OutputIV Fluid intake: 850 mL. Urine output: 750 mL measured, voided with return of yellow-colored urine. Urine: 5 Clinical Report - Nurses [facility] Emergency Department [address] [place] [address] Phone #: ext- [phone] 02/07/2020 18:07 Patient: PIPER LICEA Sex: M : 1970 Age: 49y normal smelling. --00:00 02/08/20 Ector Maravilla RN.DISPOSITION / DISCHARGE Report was given to a nurse via a phone call. Report included information regarding patient's treatment and allergies, current vital signs and abnormal labs. Report included treatment information regarding medications given or pending; type and amount of IV fluids and medications infusing. No questions were asked. Report was acknowledged and care was transferred. Bed obtained and ready. --23:46 02/07/20 Ector Maravilla RN Disposition: observation for further evaluation and antibiotics. Transported via wheelchair by nurse. Patient's personal items; items were placed in belongings bag and transported with the patient. --00:03 02/08/20 Ector Maravilla RN 00:00 02/08/20. BP: 151/97 (regular adult cuff) taken on the right arm, via an autom ated monitor, while lying. MAP: 115. HR: 70 (regular, normal rate and strong). RR: 16 (regular, unlabored and normal). O2 saturation: 99% on room air. Temp: 97.7 F (oral). Pain level now: 07/10. --00:03 02/08/20 Ector Maravilla RN Departure time: 23:58 02/07/2020. --00:04 02/08/20 Ector Maravilla RN.Locked/Released at 02/08/2020 00:04 by Ector Maravilla RN Name Value Range Interpretation Code Description Data Geneva rce(s) Supporting Document(s) ID Date Data Source [id number] 02/07/2020 06:08:00 PM EDT [facility] 1 Clinical Report - Physicians/Mid Levels [facility] Emergency Department [address] [place] [address] Phone #: ext- [phone] 02/07/2020 18:07 Patient: PIPER LICEA Sex: M : 1970 Age: 49y Time Seen; initial patient contact, initial documentation. Arrived- By ambulance. Historian- patient.HISTORY OF PRESENT ILLNESS Chief Complaint: ABDOMINAL PAIN. This started last night and is still present. It is described as "pain", stabbing, burning and dull and it is described as located in the periumbilical area. The patient has had nausea. No loss of appetite or diarrhea. (Pt had ventral hernia repair yesterday at 0500 and noted thta pain started about 2300 yesterday and never improved and resulted in EMS to ER for eval. Surgery was done here in the ER>). Similar symptoms previously. None. Recent medical care: The patient was seen recently at another facility in the emergency department and a clinic.REVIEW OF SYSTEMS No black stools, hematemesis, difficulty with urination, pain with urination or urinary frequency. No bloody stools, fever, headache, sore throat or blurred vision. No chest pain, difficulty breathing, cough, joint pain or skin rash. No chills or back pain. Last bowel movement- 2 days ago. The patient has not had weight loss. All other systems reviewed and are negative.PAST HISTORY See nurses notes. Problems: Depression. Heart Disease. Bronchitis. Anxiety Reaction. Arthritis. Pneumonia. Sprain. Myofascial Strain. Hypertension. Lower Extremity Pain. Additional Surgeries: CARDIAC ABLASION. Heart ablation. 2 Clinical Report - Physicians/[facility] Emergency Department [address] [place] [address] Phone #: ext- [phone] 02/07/2020 18:07 Patient: PIPER LICEA Sex: M : 1970 Age: 49y Medications: CeleXA Oral 40 mg, daily at bedtime. Depakote Oral 500 mg, daily. Meloxicam Oral (Tablet Disintegrating 7.5 mg) 1 tablet, 2x a day. Xanax Oral 0.5 mg, daily. Allergies: No Known Drug Allergy.SOCIAL HISTORY Smoker- current status unknown (Smokeless tobacco). No alcohol use or drug use.ADDITIONAL NOTES The nursing notes have been reviewed.PHYSICAL EXAM Vital Signs: 02/07/2020 18:08 BP: 150/97. MAP: 114. HR: 95. RR: 18. O2 saturation: 99%. Temp: 99 F. Pain level now: 10/10. Appearance: Alert. Oriented X3. No acute distress. ENT: Voice normal. CVS: Normal heart rate and rhythm. No JVD present. Pulses normal. Capillary refill normal. Strong peripheral pulses. Heart sounds normal. Pulses: right radial 2+; left radial 2+; right dorsalis pedis 2+; left dorsalis pedis 2+; right posterior tibial 2+; left posterior tibial 2+. Respiratory: Chest normal on inspection. No respiratory distress. Unlabored respirations. Lungs clear. Good chest movement. Breath sounds normal and equal. Chest nontender. Abdomen: Moderate tenderness in the periumbilical area. Obese. Single scar present in the lower abdomen (Noted spreading erythema around surgical scar.). Compatible with prior laparoscopic cholecystectomy. Skin: Skin warm and dry. Extremities: Extremities exhibit normal ROM. No lower extremity edema. No calf tenderness. No lower extremity edema. Neuro: Awake. Alert. Mood/affect normal. Speech normal. No motor deficit. No sensory deficit. Psych: Cognition normal. Thought process and content normal. Insight and judgement normal.LABS, X-RAYS, AND EKG EKG: Normal sinus rhythm. Rate: 79. RBBB. NSR; RBBB, Abnormal EKG. Discussed and reviewed with/by attending. CT Abdomen - Pelvis: Jose thurman Neal - 02/07/2020 9:23:25 PM This is likely due to laparoscopic port insertion. Depending on how long ago the surgery was This may represent a small area of necrotizing infection versus postoperative change. Jose thurman Neal - 02/07/2020 9:22:47 PM 3 Clinical Report - Physicians/Mid Levels [facility] Emergency Department [address] [place] [address] Phone #: ext- [phone] 02/07/2020 18:07 Patient: PIPER LICEA Sex: M : 1970 Age: 49y1. No free air or abscess.2.Small flecks of air in an area measuring approximately 1.6 cm just superior to the umbilicus likely.Laboratory Tests:PT/INR: (MARISABEL: 02/07/2020 19:01) ( [facility] [place] 02/07/2020 19:35) Final results Test Result Flag Units (Reference) PROTIME 13.3 SECONDS (11.0 - 15.5) INR 1.00 (0.93 - 1.23) \\BLDo\\INR INTERPRETATION\\BLDx\\ Therapeutic range for C jongdin andrelated oral anticoagulants. -International Normalized Ratio (INR): 2.0 - 3.0 for VenousThrombosis, Pulmonary Embolus, Tissue heart valves, Acute MS, Atrial Fibrillation, Valvular heartdisease and recurrent Systemic Embolism. -International Normalized Ratio (INR): 2.5 - 3.5for Mechanical Prosthetic valve.CBC w Diff: (MARISABEL: 02/07/2020 19:01) ( [facility] [place] 02/07/2020 19:57) Final results Test Result Flag Units (Reference) CBC W/AUTOMATED DIFF COMPLETE BLOOD COUNT WBC 12.4 H 10/uL (4.2 - 11.0) RBC 5.27 10/uL (4.50 - 6.30) HEMOGLOBIN 16.1 H g/dL (14.0 - 16.0) HEMATOCRIT 45.9 % (41.0 - 51.0) MCV 87.1 fL (80.0 - 94.0) MCH 30.6 pg (27.0 - 34.0) MCHC 35.1 g/dL (31.0 - 36.0) RDW 13.0 % (11.5 - 14.8) PLATELETS 245 10/uL (150 - 450) MPV 10.2 fL (7.4 - 10.4) NEUT 61.3 % (37.0 - 80.0) LYMPH 28.6 % (25.0 - 40.0) MONO 9.5 H % (3.0 - 8.0) EOS 0.2 % (0.0 - 7.0) BASO 0.2 % (0.0 - 2.0) %IG 0.2 H % (0.0 - 0.0) %NRBC 0.0 % (0.0 - 0.0) #NEUT 7.58 H 10/uL (2.00 - 6.90) #LYMPH 3.53 H 10/uL (0.60 - 3.40) #MONO 1.18 H 10/uL (0.00 - 0.90) #EOS 0.02 10/uL (0.00 - 0.70) #BASO 0.02 10/uL (0.00 - 0.20) #IG 0.03 10/uL (0.00 - 0.10) #NRBC 0.00 10/uL (0.00 - 0.00) MANUAL DIFF SEE BELOW SEGS 63 % (37 - 80) BAND 0 % (0 - 5) %LYMPH 27 % (25 - 40) %MONO 10 H % (3 - 8) %EOS 0 % (0 - 7) %BASO 0 % (0 - 2) METAMYELOCYTE 0 % MYELOCYTE 0 % PROMYELOCYTE 0 % BLASTS 0 % 4 Clinical Report - Physicians/Mid Levels [facility] Emergency Department [address] [place] [address] Phone #: ext- [phone] 02/07/2020 18:07 -------- Patient: PIPER LICEA Sex: M : 1970 Age: 49y SAMANTHA LYM 0 % NRBC 0 % RBC MORPH NOT INDICATEDCMP: (MARISABEL: 02/07/2020 19:01) ( MsgRcvd 02/07/2020 20:03) Final results Test Result Flag Units (Reference) COMPREHENSIVE METABOLIC PANEL COMPREHENSIVE METABOLIC PANEL SODIUM 133 L mEq/L (134 - 153) POTASSIUM 3.7 mEq/L (3.6 - 5.0) CHLORIDE 96 L mEq/L (98 - 107) CO2 23 MEQ/L (22 - 30) GLUCOSE 99 MG/DL (65 - 110) BUN 8 MG/DL (7 - 21) CREATININE 0.7 MG/DL (0.7 - 1.5) BUN/CREAT 11 (8 - 27) TOTAL PROTEIN 6.0 L G/DL (6.3 - 8.2) ALBUMIN 4.5 G/DL (3.9 - 5.0) GLOBULIN 1.5 L GM/DL (2.4 - 3.2) A/G RATIO 3.0 H (0.8 - 2.0) CALCIUM 9.4 MG/DL (8.4 - 10.2) TOTAL BILI <0.7 MG/DL (0.2 - 1.3) ALKALINE PHOS 56 U/L (38 - 126) SGOT/AST 26 U/L (5 - 40) SGPT/ALT 25 U/L (7 - 56) ANION GAP 14.0 mmol/L (8.0 - 16.0) AGE 49 yrs NON-AA GFR >60 mL/min AFR AMER GFR >60 mL/min Male GFR Interprentation 20-49 yrs >60 mL/min Fnsugn59-22 yrs >56 mL/min Normal 60-69 yrs >49 mL/min Normal 70-79yrs>42 mL/min Normal 80 and above >35 mL/min Normal Female GFRInterpretation 20-39 yrs >60 mL/min Normal 40-49 yrs >58 mL/minNormal 50-59 yrs >51 mL/min Normal 60-69 yrs >45 mL/min Dtjnpp00-68 yrs >39 mL/min Normal 80 and above >32 mL/min NormalLipase: (MARISABEL: 02/07/2020 19:01) ( [facility] 02/07/2020 20:03) Final results Test Result Flag Units (Reference) LIPASE 22 U/L (13 - 60)Urinalysis: (MARISABEL: 02/07/2020 19:40) ( [facility] [place]03[place] Final results Test Result Flag Units (Reference) URINALYSIS URINALYSIS SOURCE Clean Catch COLOR yellow (NORMAL: Yello CLARITY clear (NORMAL: Clear SPEC GRAVITY 1.005 (1.001 - 1. 030 pH 7 (5 - 9) GLUCOSE NORM (NORMAL: Negat BILIRUBIN NEG (NORMAL: Negat KETONE 5 A (NORMAL: Negat PROTEIN NEG (NORMAL: Negat NITRITE NEG (NORMAL: Negat BLOOD NEG (NORMAL: Negat LEUK EST NEG (NORMAL: Negat 5 Clinical Report - Physicians/Mid Levels [facility] Emergency Department [address] [place] [address] Phone #: ext- [phone] 02/07/2020 18:07 Patient: PIPER LICEA Sex: M : 1970 Age: 49y UROBILINOGEN NOR (less than 1.0 MICROSCOPIC Not Indicate Lactic Acid: (MARISABEL: 02/07/2020 19:01) ( [facility] 02/07/2020 19:19) Final results Test Result Flag Units (Reference) LACTIC ACID 1.5 MMOL/L (0.2 - 2.2) Troponin-T: (MARISABEL: 02/07/2020 19:01) ( [facility] 02/07/2020 19:35) Final results Test Result Flag Units (Reference) TROPONIN T <0.01 NG/ML (0.00 - 0.10) TROPONIN T0.1 ng/ml Recommended as the clinical threshold value forTroponin T..PROGRESS AND PROCEDURES Course of Care: VSS, NAD, AOx3, interacting well and appropriately, no use of accessory muscle, able to speak full sentences, stable, non-toxic looking. Enter room and pt lying peacefully in bed in NAD. Patient stable. Denies any new issues, concerns, or complaints. AL blair NV itnact b/l UE and LE. Noted TTP of abd and ntoed surgical scar. NToed encompassing erythema, approx 8-10cm in diameter; ? irratation vs infection. WIll obtain and imaging for furhte reval. Penidng resutls. Reviewed results. Contacted surgon brick mason (Dr. Meeks); informed of pt, informed that Dr. Richardson had done the surgery yesterday. Sts that not brick mason and that Dr. Richardson is covering. Understood as Dr. Richardson did the surg ronen. Informed I understood and will contact him. Contacted radiology. Discussed wiht Dr. Garcia; sts no abscess. ? early post op changes. Enter room and pt lying peacefully in bed. Re-examiend and noted that original erythema had increased spreading to the Right. ? worsening infection. WBC slighlty elevated: ? 2/2 surgyer or early infection. Noted CT findings: ? 2/2 surgery or early infection. Cotnacted Dr. Richardson; discuss pt. Sts he feels this is early post op changes. Agrees to IV abx here in ER, oral abx as out pt, and pain meds. Infomred I will review CURB WORKER and agrees. Sts that he will see pt in the AM (0800) in the clinic. Inquire about possible admission (considering under hosptilist and consultd) and indicates he does not feel that pt will need to be admitted as he feels early post op changes and since I will be giving IV abx here and he will see in jareth AM. 6 Clinical Report - Physicians/Mid Levels [facility] Emergency Department [address] [place] [address] Phone #: ext- [phone] 02/07/2020 18:07 Patient: PIPER LICEA Sex: M : 1970 Age: 49yOrdered abx.22:18 02/07/20. Disucssed with attending and she indicates to admit pt for observation and for continued IVabx. ? early infectoion vs post op changes and so soon after surgery (yesterday) It does appears to beworsening; lives by himself. Contacted hospitalist to discuss.Reviewed CURB WORKER.This report was requested by: Israel Puri Reference #: [id number]' PrescriptionsPatient Name: Piper LiceaBirth Date: 1970Address: [address] [place], [place] [address]Swz: MaleRx Written Rx Dispensed Drug Quantity Days Supply Prescriber Name Payment Method Hdzfadsfz10/02/2020 08/10/2019 alprazolam 0.5 mg tablet 30 30 [place], Maryanne [facility]zunm cancer centerEMOSpe[facility], [facility] #07/13/2019 alprazolam 0.5 mg tablet 30 30 [place], [facility]Greetzunm cancer centerEverest, [facility] #07/03/2019 testosterone cyp 200 mg/ml 4ml 30 [facility], [facility] #06/13/2019 alprazolam 0.5 mg tablet 60 30 [place], [facility] StarGreetzunm cancer centerCloudwordslawrence+memorial hospitalDresden Silicon, [facility] #05/16/2019 alprazolam 0.5 mg tablet 60 30 [place], [facility]un[facility] cancer centerEMOS[facility], [facility] #11105/02/2019 testosterone cyp 200 mg/ml 4ml 30 Yonathan, Kelli [facility]Greetzunm cancer centerEMOSpeech, [facility] #11104/20/2019 alprazolam 0.5 mg tablet 60 30 [place], [facility] StarGreetzunm cancer centerCloudwordslawrence+memorial hospitalDresden [employer], [facility] #11003/21/2019 testosterone cyp 200 mg/ml 4ml 30 [facility], Kelli A [facility] StarGreetzunm cancer centerCloudwordslawrence+memorial hospitalMoAnima, Inc., [facility] #11003/21/2019 alprazolam 0.5 mg tablet 60 30 [place], Maryanne [facility] StarGreetzunm cancer centerCloudwordslawrence+memorial hospitalMoAnima, Inc.y, [facility] #10902/23/2019 alprazolam 0.5 mg tablet 60 30 [place], [facility] StarGreetzunm cancer centerCloudwordslawrence+memorial hospitalMoAnima, Inc., [facility] #10902/16/2019 testosterone cyp 200 mg/ml 4ml 30 Yonathan, Kelli [facility] StarGreetzunm cancer centerEMOSpeech, [facility] #1Patient Name: Piper LiceaBirth Date: 1970Address: [address] [address]Nli: MaleRx Written Rx Dispensed Drug Quantity Days Supply Prescriber Name Payment Method [id number]/25/2020 01/24/2020 alprazolam 0.5 mg tablet 30 30 Joselo shankar [facility], [facility]#01/01/2020 alprazolam 0.5 mg tablet 30 30 [facility] 7 Clinical Report - Physicians/Mid Levels [facility] Emergency Department [address] [place] [address] Phone #: ext- [phone] 02/07/2020 18:07 Patient: PIPER LICEA Sex: M : 1970 Age: 49y 11/29/2019 11/30/2019 alprazolam 0.5 mg tablet 30 30 Jacquelin Erickson MD [facility], [facility] #1 11/29/2019 11/30/2019 testosterone cyp 200 mg/ml 4ml 30 Jacquelin Erickson MD [facility], [facility] #1 10/31/2019 11/02/2019 alprazolam 0.5 mg tablet 30 30 [facility] #1 10/19/2019 10/24/2019 testosterone cyp 200 mg/ml 4ml 30 Y[facility], [facility] #1 09/04/2019 09/11/2019 alprazolam 0.5 mg tablet 30 30 Maryanne Ashby [facility], [facility] #1 08/21/2019 08/23/2019 testosterone cyp 200 mg/ml 4ml 30 [facility]1 22:31 02/07/20. Contact hosptilist and she indicates she will admit for observation and consult with surgeon in AM. Critical care performed (70 minutes). Time includes: direct patient care, patient reassessment, coordination of patient care, interpretation of data (laboratory data), review of patient's medical records, medical consultation, family consultation regarding treatment decisions and documentation of patient care- see progress notes. Discussed case with health care provider (Kelley (ER Attending)). General surgery called for consult. Disposition: Admitted to the Acute Inpatient Unit, Monitored. UTI (catheter associated) was not present prior to admission. Pressure ulcer was not present prior to admission. Vascular infection (catheter associated) was not present prior to admission.CLINICAL IMPRESSION Acute periumbilical abdominal pain of unknown cause.(Electronically signed by Israel Puri P.A.-C 02/08/2020 10:27) Name Value Range Interpretation Code Description Data Geneva rce(s) Supporting Document(s) ID Date Data Source [id number] 02/08/2020 07:10:00 AM EDT [facility] Name Value Range Interpretation Code Description Data Geneva rce(s) Supporting Document(s) BASIC METABOLIC PANEL [facility] BASIC METABOLIC PANEL Sodium [Moles/volume] in Serum or Plasma 140 mEq/L 134 - 153 [facility] Potassium [Moles/volume] in Serum or Plasma 4.6 mEq/L 3.6 - 5.0 [facility] Chloride [Moles/volume] in Serum or Plasma 105 mEq/L 98 - 107 [facility] Carbon dioxide, total [Moles/volume] in Serum or Plasma 28 MEQ/L 22 - 30 [facility] Glucose [Mass/volume] in Serum or Plasma 79 MG/DL 65 - 110 [facility] BUN 8 MG/DL 7 - 21 [facility] Creatinine [Mass/volume] in Serum or Plasma 0.8 MG/DL 0.7 - 1.5 [facility] BUN/CREAT 10 8 - 27 [facility] Calcium [Mass/volume] in Serum or Plasma 8.8 MG/DL 8.4 - 10.2 [facility] Anion gap 3 in Serum or Plasma 7.0 mmol/L 8.0 - 16.0 L [facility] AGE 49 yrs [facility] al AFR AMER GFR >60 mL/min [facility] Ho spital NON-AA GFR >60 mL/min [facility] Hosp ital Male GFR Inter prentation 20-49 yrs >60 mL/min Normal 50-59 yrs >56 mL/min Normal 60-69 yrs >49 mL/min Normal 70-79yrs >42 mL/min Normal 80 and above >35 mL/min Normal Female GFR Interpretation 20-39 yrs >60 mL/min Normal 40-49 yrs >58 mL/min Normal 50-59 yrs >51 mL/min Normal 60-69 yrs >45 mL/min Normal 70-79 yrs >39 mL/min Normal 80 and above >32 mL/min Normal ID Date Data Source [id number] 02/08/2020 06:48:00 AM EDT [facility] Name Value Range Interpretation Code Description Data Geneva rce(s) Supporting Document(s) CBC W/AUTOMATED DIFF [facility] COMPLETE BLOOD COUNT Leukocytes [#/volume] in Blood by Automated count 10.3 10^3/uL 4.2 - 11.0 [facility] Erythrocytes [#/volume] in Blood by Automated count 5.17 10^6/uL 4. 50 - 6.30 [facility] Hemoglobin [Mass/volume] in Blood 15.7 g/dL 14.0 - 16.0 [facility] Hematocrit [Volume Fraction] of Blood by Automated count 45.9 % 4 1.0 - 51.0 [facility] Erythrocyte mean corpuscular volume [Entitic volume] by Auto mated count 88.8 fL 80.0 - 94.0 [facility] Erythrocyte mean corpuscular hemoglobin [Entitic mass] by Automated count 30.4 pg 27.0 - 34.0 [facility] Erythrocyte mean corpuscular hemoglobin concentration [Mass/volume] by Automated count 34.2 g/dL 31.0 - 36.0 [facility] Erythrocyte distribution width [Ratio] by Automated count 13.2 % 11.5 - 14.8 [facility] Platelets [#/volume] in Blood by Automated count 259 10^3/uL 150 - 45 0 [facility] Platelet mean volume [Entitic volume] in Blood by Automated count 9.7 fL 7.4 - 10.4 [facility] Neutrophils/100 leukocytes in Blood by Automated count 48.8 % 37. 0 - 80.0 [facility] Lymphocytes/100 leukocytes in Blood by Manual count 40.7 % 25.0 - 40.0 H [facility] Monocytes/100 leukocytes in Blood by Automated count 9.6 % 3.0 - 8.0 H [facility] Eosinophils/100 leukocytes in Blood by Automated count 0.4 % 0.0 - 7.0 [facility] Basophils/100 leukocytes in Blood by Automated count 0.3 % 0.0 - 2.0 [facility] %IG 0.2 % 0.0 - 0.0 H [facility] al %NRBC 0.0 % 0.0 - 0.0 [facility] al Neutrophils [#/volume] in Blood by Automated count 5.05 10^3/uL 2.00 - 6.90 [facility] Lymphocytes [#/volume] in Blood by Automated count 4.21 10^3/uL 0.60 - 3.40 H [facility] Monocytes [#/volume] in Blood by Automated count 0.99 10^3/uL 0.00 - 0.90 H [facility] Eosinophils [#/volume] in Blood by Automated count 0.04 10^3/uL 0.00 - 0.70 [facility] Basophils [#/volume] in Blood by Automated count 0.03 10^3/uL 0.00 - 0.20 [facility] #IG 0.02 10^3/uL 0.00 - 0.10 [facility] H ospital #NRBC 0.00 10^3/uL 0.00 - 0.00 [facility] H ospital MANUAL DIFF NOT INDICATED [facility] RBC MORPH NOT INDICATED [facility] Ho spital ID Date Data Source [id number] 02/07/2020 08:02:00 PM EDT [facility] Name Value Range Interpretation Code Description Data [place] rce(s) Supporting Document(s) [facility] S[facility] Clean Catch [facility] Hosp ital COLOR yellow NORMAL: Yellow [facility] H ospital CLARITY clear NORMAL: Clear [facility] Ho spital Specific gravity of Urine by Test strip 1.005 1.001 - 1.030 [facility] pH 7 5 - 9 [facility] Glucose [Mass/volume] in Urine by Test strip NORM NORMAL: [facility]at [facility] Bilirubin.total [Presence] in Urine by Test strip NEG NORMAL: Negative [facility] Ketones [Presence] in Urine by Test strip 5 NORMAL: Negative A [facility] Protein [Mass/volume] in Urine by Test strip NEG NORMAL: Negat [facility] Nitrite [Presence] in Urine by Test strip NEG NORMAL: Negative [facility] BLOOD NEG NORMAL: Negative [facility] Leukocyte esterase [Presence] in Urine by Test strip NEG PHILLIP L: Negative [facility] Urobilinogen [Mass/volume] in Urine by Test strip NOR less ani n 1.0 mg/dL [facility] MICROSCOPIC Not Indicate [facility] ospital ID Date Data Source [id number] 02/14/2020 06:37:00 AM EDT [facility] [id number] STAIN = GRAM POSITIVE SHAISTA CI IN NUOWPDHK31/11/20 1137 CALLED TO BYRON Husain BY LAMINE, RESULTS READ BACK02/14/20 0636 CALLED TO NANETTE Sanchez BY LAMINE, RESULTS READBACKMICROCOCCUS & RELATED SPECIES Name Value Range Interpretation Code Description Data Geneva rce(s) Supporting Document(s) Bacteria identified in Blood by Culture [facility] NO GROWTH AFTER 5 DAYS ID Date Data Source [id number] 02/09/2020 11:39:00 AM EDT [facility] 02/09/20 1137 CALLED TO BYRON Husain BY KARL Magaña, RESULTS READ BACKThe REAC FuelArray BCID Panel is a qualitative multiplexednucleic acid-based test - PCRNormal results for each test is "Not detected"The BCID panel detects KPC,mecA,Anita/Bresistance,enterococcus,L.monocytogenes,Staphlococcus,S.aureus,St reptococcus,GRP B, GRP A, S.pneumoniae,A.baumanii,Enterobacteriaceae,E.cloacae complex,E.coli,K.oxytoca ,K.pneumoniae,Proteus,S.marcescens,H.influenzae,N.meningitidis,P.aeruginosa,C. albicans,C.glabrata ,C.krusei,C.parapsilosis,C.tropicalisTraditional Culture ID and Sensitivities will still beperformed on all positive blood cultures.The [employer] BCID panel may not distinguish mixed cultureswhen two or more species of the same genus or organism groupare present in a specimen.This test is a qualitative test and does not provide aquantitative value for the organism(s)in the sample.Antimicrobial resistance can occur via multiple mechanisms.A Not detected result for the FilmArray antimicrobialresistance gene assays does not indicate antimicrobialsusceptibility. Subculturing and standard susceptibilitytesting of isolates is requried to determine antimicrobialsusceptibility.Results from this test must be correlated with the clinicalhistory, epidemiological data,and otherdata available to theclinician evaluating the patient.No Organisms Detected Name Value Range Interpretation Code Description Data Geneva rce(s) Supporting Document(s) ID Date Data Source [id number] 02/14/2020 11:42:00 AM EDT [facility] Name Value Range Interpretation Code Description Data Geneva rce(s) Supporting Document(s) CULTURE BLOOD [facility] Ho spital _CULTURE BLOOD_{ PRELIM GROWTH OF GRAM POSITIVE COCCI IN CLUSTERS TEST PERFORMED AT [address] [address] CLIA# [id number] SEE SCANNED REPORTCALLED T0 REINIER ON AIU 02/09/20 1145 CM ID Date Data Source [id number] 02/07/2020 08:03:00 PM EDT [facility] Name Value Range Interpretation Code Description Data [place] rce(s) Supporting Document(s) Lipase [Enzymatic activity/volume] in Serum or Plasma 22 U/L 13 - 60 [facility] ID Date Data Source [id number] 02/07/2020 08:03:00 PM EDT [facility] Name Value Range Interpretation Code Description Data [place] rce(s) Supporting Document(s) COMPREHENSIVE METABOLIC PANEL [facility] COMPREHENSIVE METABOLIC PANEL Sodium [Moles/volume] in Serum or Plasma 133 mEq/L 134 - 153 L [facility] Potassium [Moles/volume] in Serum or Plasma 3.7 mEq/L 3.6 - 5.0 [facility] Chloride [Moles/volume] in Serum or Plasma 96 mEq/L 98 - 107 L [facility] Carbon dioxide, total [Moles/volume] in Serum or Plasma 23 MEQ/L 22 - 30 [facility] Glucose [Mass/volume] in Serum or Plasma 99 MG/DL 65 - 110 [facility] BUN 8 MG/DL 7 - 21 [facility] Creatinine [Mass/volume] in Serum or Plasma 0.7 MG/DL 0.7 - 1.5 [facility] BUN/CREAT 11 8 - 27 [facility] Protein [Mass/volume] in Serum or Plasma 6.0 G/DL 6.3 - 8.2 L [facility] Albumin [Mass/volume] in Serum or Plasma 4.5 G/DL 3.9 - 5.0 [facility] Globulin [Mass/volume] in Serum by calculation 1.5 GM/DL 2.4 - 3.2 L [facility] A/G RATIO 3.0 0.8 - 2.0 H [facility] Calcium [Mass/volume] in Serum or Plasma 9.4 MG/DL 8.4 - 10.2 [facility] Bilirubin.total [Mass/volume] in Serum or Plasma <0.7 MG/DL 0.2 - 1.3 [facility] Alkaline phosphatase [Enzymatic activity/volume] in Serum or Plasma 56 U/L 38 - 126 [facility] Aspartate aminotransferase [Enzymatic activity/volume] in Serum or Plasma 26 U/L 5 - 40 [facility] Alanine aminotransferase [Enzymatic activity/volume] in Seru m or Plasma 25 U/L 7 - 56 [facility] Anion gap 3 in Serum or Plasma 14.0 mmol/L 8.0 - 16.0 [facility] AGE 49 yrs [facility] NON-AA GFR >60 mL/min [facility] ital AFR AMER GFR >60 mL/min [facility] Ho spital Male GFR In terprentation 20-49 yrs >60 mL/min Normal 50-59 yrs >56 mL/min Normal 60-69 yrs >49 mL/min Normal 70-79yrs >42 mL/min Normal 80 and above >35 mL/min Normal Female GFR Interpretation 20-39 yrs >60 mL/min Normal 40-49 yrs >58 mL/min Normal 50-59 yrs >51 mL/min Normal 60-69 yrs >45 mL/min Normal 70-79 yrs >39 mL/min Normal 80 and above >32 mL/min Normal ID Date Data Source [id number] 02/07/2020 07:56:00 PM EDT [facility] Name Value Range Interpretation Code Description Data Geneva rce(s) Supporting Document(s) CBC W/AUTOMATED DIFF [facility] COMPLETE BLOOD COUNT Leukocytes [#/volume] in Blood by Automated count 12.4 10^3/uL 4.2 - 11.0 H [facility] Erythrocytes [#/volume] in Blood by Automated count 5.27 10^6/uL 4. 50 - 6.30 [facility] Hemoglobin [Mass/volume] in Blood 16.1 g/dL 14.0 - 16.0 H [facility] Hematocrit [Volume Fraction] of Blood by Automated count 45.9 % 4 1.0 - 51.0 [facility] Erythrocyte mean corpuscular volume [Entitic volume] by Auto mated count 87.1 fL 80.0 - 94.0 [facility] Erythrocyte mean corpuscular hemoglobin [Entitic mass] by Automated count 30.6 pg 27.0 - 34.0 [facility] Erythrocyte mean corpuscular hemoglobin concentration [Mass/volume] by Automated count 35.1 g/dL 31.0 - 36.0 [facility] Erythrocyte distribution width [Ratio] by Automated count 13.0 % 11.5 - 14.8 [facility] Platelets [#/volume] in Blood by Automated count 245 10^3/uL 150 - 45 0 [facility] Platelet mean volume [Entitic volume] in Blood by Automated count 10.2 fL 7.4 - 10.4 [facility] Neutrophils/100 leukocytes in Blood by Automated count 61.3 % 37. 0 - 80.0 [facility] Lymphocytes/100 leukocytes in Blood by Manual count 28.6 % 25.0 - 40.0 [facility] Monocytes/100 leukocytes in Blood by Automated count 9.5 % 3.0 - 8.0 H [facility] Eosinophils/100 leukocytes in Blood by Automated count 0.2 % 0.0 - 7.0 [facility] 0.2 %IG 0.2 % 0.0 - 0.0 [facility] %NRBC 0.0 % 0.0 - 0.0 [facility] Neutrophils [#/volume] in Blood by Automated count 7.58 10^3/uL 2.00 - 6.90 H [facility] Lymphocytes [#/volume] in Blood by Automated count 3.53 10^3/uL 0.60 - 3.40 H [facility] Monocytes [#/volume] in Blood by Automated count 1.18 10^3/uL 0.00 - 0.90 H [facility] Eosinophils [#/volume] in Blood by Automated count 0.02 10^3/uL 0.00 - 0.70 [facility] Basophils [#/volume] in Blood by Automated count 0.02 10^3/uL 0.00 - 0.20 [facility] #IG 0.03 10^3/uL 0.00 - 0.10 [facility] H ospital #NRBC 0.00 10^3/uL 0.00 - 0.00 [facility] ospital MANUAL DIFF SEE BELOW [facility] Segmented neutrophils/100 leukocytes in Blood by Manual count 63 % 37 - 80 [facility] BAND 0 % 0 - 5 [facility] %LYMPH 27 % 25 - 40 [facility] %MONO 10 % 3 - 8 H [facility] %EOS 0 % 0 - 7 [facility] al 0 Metamyelocytes/100 leukocytes in Blood by Manual count 0 % [facility] Myelocytes/100 leukocytes in Blood by Manual count 0 % [facility] Promyelocytes/100 leukocytes in Blood by Manual count 0 % [facility] Blasts/100 leukocytes in Blood by Manual count 0 % [facility] SAMANTHA LYM 0 % [facility] Nucleated erythrocytes/100 erythrocytes in Blood by Manual count 0 % [facility] RBC MORPH NOT INDICATED [facility] Ho spital ID Date Data Source [id number] 02/07/2020 07:35:00 PM EDT [facility] Name Value Range Interpretation Code Description Data [place] rce(s) Supporting Document(s) TROPONIN T <0.01 NG/ML 0.00 - 0.10 [facility] ospital TROPONIN T0.1 ng/ml Recommended as the c linical threshold value forTroponin T. ID Date Data Source [id number] 02/07/2020 07:35:00 PM EDT [facility] Name Value Range Interpretation Code Description Data [place] rce(s) Supporting Document(s) Prothrombin time (PT) 13.3 SECONDS 11.0 - 15.5 [facility] INR in Platelet poor plasma by Coagulation assay 1.00 0.93 - 1. 23 [facility] \\BLDo\\INR INTERPRETATION\\BLDx\\ Therapeutic range for Coumadin and related oral anticoagulants. - International Normalized Ratio (INR): 2.0 - 3.0 for Venous Thrombosis, Pulmonary Embolus, Tissue heart valves, Acute MS, Atrial Fibrillation, Valvular heart disease and recurrent Systemic Embolism. -International Normalized Ratio (INR): 2.5 - 3.5 for Mechanical Prosthetic valve. ID Date Data Source [id number] 02/07/2020 07:19:00 PM EDT [facility] Name Value Range Interpretation Code Description Data [place] rce(s) Supporting Document(s) Lactate [Moles/volume] in Serum or Plasma 1.5 MMOL/L 0.2 - 2.2 [facility] ID Date Data Source [id number] 02/14/2020 11:41:00 AM EDT [facility] Name Value Range Interpretation Code Description Data [place] rce(s) Supporting Document(s) CULTURE BLOOD [facility] stephanie _CULTURE BLOOD_ [place] [address] CLIA# [id number] SEE SCANNED REPORT{ PRELIM ID Date Data Source [id number] 02/06/2020 03:23:00 PM EDT [facility] Name Value Range Interpretation Code Description Data [place] rce(s) Supporting Document(s) SARS coronavirus 2 RNA [facility] This lab was ordered by [facility] Tien brown and reported by [facility]. ID Date Data Source [id number] 02/08/2020 11:21:00 AM EDT [facility] Name Value Range Interpretation Code Description Data [place] rce(s) Supporting Document(s) SARS-CoV-2, RICARDO Not Detected Not Detected [facility] This nucleic acid amplification test was developed and its performancecharacteristics determined by [email or web address]. Nucleic acidamplification tests include PCR and TMA. This test has not been FDAcleared or approved. This test has been authorized by FDA under anEmergency Use Authorization (EUA). This test is only authorized forthe duration of time the declaration that circumstances existjustifying the authorization of the emergency use of in vitrodiagnostic tests for detection of SARS-CoV-2 virus and/or diagnosisof COVID-19 infection under section 564(b)(1) of the Act, 21 U.S.C.360bbb-3(b) (1), unless the authorization is terminated or revokedsooner.When diagnostic testing is negative, the possibility of a falsenegative result should be considered in the context of a patient'srecent exposures and the presence of clinical signs and symptomsconsistent with COVID- 19. An individual without symptoms of COVID-19and who is not shedding SARS-CoV-2 virus would expect to have anegative (not detected) result in this assay. ID Date Data Source [id number] 02/06/2020 04:03:00 PM EDT [facility] Name Value Range Interpretation Code Description Data [place] e(s) Supporting Document(s) Sodium [Moles/volume] in Serum or Plasma 135 mEq/L 134 - 153 [facility] Potassium [Moles/volume] in Serum or Plasma 4.2 mEq/L 3.6 - 5.0 [facility] Chloride [Moles/volume] in Serum or Plasma 98 mEq/L 98 - 107 [facility] Carbon dioxide, total [Moles/volume] in Serum or Plasma 27 MEQ/L 22 - 30 [facility] ID Date Data Source [id number] 02/06/2020 03:33:00 PM EDT [facility] Name Value Range Interpretation Code Description Data [place] rce(s) Supporting Document(s) CBC NO DIFF [facility] ital COMPLETE BLOOD COUNT Leukocytes [#/volume] in Blood by Automated count 8.8 10^3/uL 4.2 - 1 1.0 [facility] Erythrocytes [#/volume] in Blood by Automated count 5.38 10^6/uL 4. 50 - 6.30 [facility] Hemoglobin [Mass/volume] in Blood 16.5 g/dL 14.0 - 16.0 H [facility] Hematocrit [Volume Fraction] of Blood by Automated count 47.8 % 4 1.0 - 51.0 [facility] Erythrocyte mean corpuscular volume [Entitic volume] by Auto mated count 88.8 fL 80.0 - 94.0 [facility] Erythrocyte mean corpuscular hemoglobin [Entitic mass] by Automated count 30.7 pg 27.0 - 34.0 [facility] Erythrocyte mean corpuscular hemoglobin concentration [Mass/volume] by Automated count 34.5 g/dL 31.0 - 36.0 [facility] Erythrocyte distribution width [Ratio] by Automated count 13.2 % 11.5 - 14.8 [facility] Platelets [#/volume] in Blood by Automated count 240 10^3/uL 150 - 45 0 [facility] Platelet mean volume [Entitic volume] in Blood by Automated count 9.6 fL 7.4 - 10.4 [facility] ID Date Data Source [id number] 02/05/2020 11:46:00 PM EDT [facility] [address] [place] [address] [phone] NAME SEX PT STATUS ACCOUNT NUMBER PIPER LICEA [facility] [id number] ORDERING PHYSICIAN LOCATION MEDICAL RECORD NO. Skip Rutherford MD ER [id number] ATTENDING PHYSICIAN DATE OF DATE OF EXAM/TIME [...] No relevant prior studies available. FINDINGS: Lung ba ses: Unremarkable. No mass. No consolidation. Mediastinum: There [...] on 02/05/20 2346 Date Time CC: Kelli Mcmanus; Preston Lucas MD Techn: RAULITO Trans Dt/Tm: Trans by: CHARLIE Prt Dt/Tm: 0907- 0012: Total DLP = 1145.00 mGy-cm 1051-4245: Total Radiation Dose = 17.1750 mSv Lifetime Dose: 17.1750 mSv Name Value Range Interpretation Code Description Data [place] rce(s) Supporting Document(s) ID Date Data Source [id number] 02/05/2020 09:45:00 PM EDT [facility] Special Instructions: Lab may order repe at test if initial test elevatedPhysician If elevated, reflex second test in 4-6 hrs Name Value Range Interpretation Code Description Data [place] rce(s) Supporting Document(s) Leukocytes [#/volume] in Blood by Automated count 9.0 10*3/uL 4.45-10 .71 N [facility] Erythrocytes [#/volume] in Blood by Automated count 5.38 10*6/uL 4.3- 6.1 N [facility] Hemoglobin [Moles/volume] in Blood 16.6 g/dL 13-18 N [facility] Hematocrit [Volume Fraction] of Blood by Automated count 47.1 % 4 2-52 N [facility] Erythrocyte mean corpuscular volume [Ent itic volume] in Cord blood by Automated count 87.5 fL 80-96 N [facility] ital Erythrocyte mean corpuscular hemoglobin [Entitic mass] by Automated count 30.9 pg 27-31 N [facility] l Erythrocyte mean corpuscular hemoglobin concentration [Mass/volume] in Cord blood 35.2 g/dL 33-37 N [facility] ital Erythrocyte distribution width [Entitic volume] by Automated count 13 % 11-15 N [facility] Platelets [#/volume] in Blood by Automated count 246 10*3/uL 130-472 N [facility] Platelet mean volume [Entitic volume] in Blood 9.5 fL 9.1-13.1 N [facility] Neutrophils/100 leukocytes in Blood by Automated count 55.4 % 41- 77 N [facility] Neutrophils [#/volume] in Blood by Automated count 5.0 U 1.7-7.6 N [facility] Lymphocytes/100 leukocytes in Blood by Automated count 36.9 % 14- 46 N [facility] Lymphocytes [#/volume] in Blood by Automated count 3.3 U 0.6-4.6 N [facility] Monocytes/100 leukocytes in Blood by Automated count 6.6 % 4-12 N [facility] Monocytes [#/volume] in Blood by Automated count 0.6 U 0.2-1.2 N [facility] Eosinophils/100 leukocytes in Blood by Automated count 0.6 % 0-7 N [facility] Eosinophils [#/volume] in Blood by Automated count 0.1 U 0.0-0.5 N [facility] Basophils/100 leukocytes in Blood by Automated count 0.3 % 0.4-1.3 Below low normal [facility] Basophils [#/volume] in Blood by Automated count 0.0 U 0.0-0.2 N [facility] NUCLEATED RED BLOOD CELL 0 % [facility] NUCLEATED RED BLOOD CELL# 0 U [facility] Immature granulocytes [Presence] in Blood by Automated count 0-2 N [facility] Immature granulocytes [#/volume] in Blood by Automated count 0.0 U 0-0.1 [facility] Manual Differential panel - Blood NO [facility] ID Date Data Source [id number] 02/05/2020 10:07:00 PM EDT [facility] Special Instructions: Lab may order repe at test if initial test elevatedPhysician If elevated, reflex second test in 4-6 hrs Name Value Range Interpretation Code Description Data [place] rce(s) Supporting Document(s) Prothrombin Time (Patient) 11.2 s 9.6-12.3 Health system INR 1.1 0.9-1.1 [facility] THE INR IS OPERATIONALLY DEFINED FOR GILMA SH PLASMA FROMPATIENTS STABILIZED ON ORAL ANTICOAGULANTS.ROUTINE ANTICOAGULANT THERAPY 2.0-3.0RECURRENT SYSTEMIC EMBOLISM/HEART VALVE REPLACEMENT 2.5-3.5 aPTT.lupus sensitive (LA screen) 26.4 s 22.7-31.6 [facility] ID Date Data Source [id number] 02/05/2020 10:19:00 PM EDT [facility] Special Instructions: Lab may order repe at test if initial test elevatedPhysician If elevated, reflex second test in 4-6 hrs Name Value Range Interpretation Code Description Data [place] rce(s) Supporting Document(s) Lactic w Rfx (if elevated) 0.8 mmol/L 0.5-2.2 [facility] ID Date Data Source [id number] 02/05/2020 10:19:00 PM EDT [facility] Special Instructions: Lab may order repe at test if initial test elevatedPhysician If elevated, reflex second test in 4-6 hrs Name Value Range Interpretation Code Description Data [place] rce(s) Supporting Document(s) Urea nitrogen [Mass/volume] in Serum or Plasma 8 mg/dL 9-23 Below low normal [facility] Sodium [Moles/volume] in Serum or Plasma 137 mmol/L 132-146 N [facility] Potassium [Moles/volume] in Serum or Plasma 3.7 mmol/L 3.5-5.5 [facility] Chloride [Moles/volume] in Serum or Plasma 105 mmol/L 99-109 [facility] Carbon dioxide, total [Moles/volume] in Serum or Plasma 25 mmol/L 20 -31 [facility] Anion gap in Serum or Plasma 11 mmol/L 8-16 [facility] Glucose [Mass/volume] in Serum or Plasma 92 mg/dL 74-106 N [facility] Creatinine 0.7 mg/dL 0.5-1.1 [facility] Glomerular filtration rate/1.73 sq M.pre dicted [Volume Rate/Area] in Serum or Plasma Greater Than 60 ABOVE 60 [facility] Alanine aminotransferase [Enzymatic acti vity/volume] in Serum or Plasma by With P-5'-P 36 U/L 10-49 [facility] ital Aspartate aminotransferase [Enzymatic ac tivity/volume] in Serum or Plasma by With P-5'-P 22 U/L 0-33 N [facility] pital Alkaline phosphatase [Enzymatic activity/volume] in Serum or Plasma 55 U/L 45-129 N [facility] Calcium [Mass/volume] in Serum or Plasma 9.4 mg/dL 8.5-10.1 [facility] Bilirubin.total [Mass/volume] in Serum or Plasma 0.7 mg/dL 0.3-1.2 [facility] Albumin [Mass/volume] in Serum or Plasma by Bromocresol purple (BCP) dye binding method 3.9 g/dL 3.2-4.8 N [facility] ital Protein [Mass/volume] in Serum or Plasma 6.6 g/dL 5.7-8.2 N [facility] ID Date Data Source [id number] 02/05/2020 09:19:00 PM EDT [facility] ED Physician Documentation NAME: PIPER LICEA : 1970 AGE: 49 MR#: [id number] SERVICE DATE: 02/05/[address]: Skip Rutherford MD PRIMARY CARE DR: Kelli Mcmanus ROOM#: HPI (Adult, General) General Chief Complaint: GI Stated Complaint: ABD PAIN, BACK PAIN Resident [facility], travel outisde home, exposure to hot tubs:: No Time Seen by Provider: 02/05/20 21:00 Source: patient Exam Limitations: no limitations History of Present Illness Narrative: 49 yo man with h/o umbilical hernia, pending surgical repair in 3 weeks, presents with increasing pain at the umbilicus since his surgery clinic visit 4 days ago. He has been eating and having BM's with no vomiting noted and no fevers. Allergies/Home Meds Allergies Allergy/AdvReac Type Severity Reaction Status Date / Time dust mites Allergy Severe builds up Uncoded 02/05/20 21:23 drainage in eyes , post nasal drip rag weed Allergy Severe builds up Uncoded 02/05/20 21:23 eye drainage, post nasal drip Home Medications Medication Instructions Recorded Confirmed Last Taken Type meloxicam 7.5 mg tablet 7.5 mg PO BID 90 Days #180 tab 11/29/19 02/05/20 Unknown Rx citalopram 20 mg tablet 40 mg PO QDAY #30 tab 01/22/20 02/05/20 Unknown Rx lisinopril 40 mg tablet 40 mg PO DAILY 90 Days #90 tab 01/22/20 02/05/20 Unknown Rx alprazolam 0.5 mg tablet 0.5 mg PO QDAY #30 tab MDD MDD-1 01/23/20 02/05/20 Unknown Rx syringe (disposable) 10 mL #1 box 01/24/20 02/01/20 Unknown Rx divalproex 500 mg tablet,delayed 500 mg PO HS 30 Days #30 tab 01/25/20 02/05/20 Unknown Rx release PMH (from Triage) Patient Medical History PMH Reviewed/Updated as Needed: Yes PMH/PSH from Triage: Medical History (Updated 02/01/20 @ 14:51 by Eliane Omalley) Depression (Medical) F32.9 Hypertension (Medical) I10 Low testosterone in male (Medical) R79.89 Sleep apnea (Medical) G47.30 Referred for sleep study and possible CPAP fitting Surgical History (Updated 02/01/20 @ 19:40 by Naveed Hannon) History of cardiac radiofrequency ablation (Surgical) Z98.890 x3 Umbilical hernia (Surgical) K42.9 Hx Drug Resistant Infections Hx MRSA: (Methicillin- resistant Staphylococcus aureus): No Hx VRE (Vancomycin-resistant enterococci): No Hx C.Diff: No Hx Other Resistant Infection?: No Isolation: Standard precautions Hx Recent Travel Out of the country within 10 days (where): No Nurse screening for coronavirus: Recent Travel outside the No country (where) Has patient experienced No coronavirus symptoms Social History Does patient have suicidal/homicidal thoughts or ideation?: No Are you in a relationship with/Does anyone hit you, yell/swear at you, steal from you?: No Substance Use Hx Alcohol Use: Yes (18 BEER 12/31/13, [employer]) Hx Substance Use: Yes (MARIJUANA,) Hx Substance Use Treatment: Yes Second Hand Smoke Exposure: No Smoking Status: Current every day smoker Tobacco Use Tobacco Products:: E-cigarette Years smoked:: 30 years Hx Chewing Tobacco Use: No Vaccination History Hx/Date of Tetanus, Diphtheria Vaccination: No (UNKNOWN) PFSH Medical History (Updated 02/01/20 @ 19:38 by Naveed Hannon) Depression Hypertension Low testosterone in male Sleep apnea Surgical History (Updated 02/01/20 @ 19:40 by Naveed Hannon) History of cardiac radi ofrequency ablation Umbilical hernia Family History Father No problems noted. Mother No problems noted. Social History Does the Patient have a Healthcare Proxy: No Does Patient have a DNR?: No Does Patient have a Living Will?: No marital status: Single Hx Recent Travel (where): No Smoking Status: Current every day smoker how long ago did patient quit smokin yrs ago, uses smokless tobacco though alcohol intake: never ROS Review of Systems Constitutional: Denies fever Respiratory: Denies SOB Cardiovascular: Denies chest pain Gastrointestinal: Reports abdominal pain; Denies vomiting and constipation Genitourinary-Male: Denies retention Skin/Breasts: Denies rash Endocrine: Denies Loss of appetite Hematological/Lymphatic: Denies easy bleeding and easy bruising Physical Exam General Physical Exam Narrative: obese man, awake and alert, appears comfortable on the stretcher Limitations: no limitations General appearance: alert, in no apparent distress and obese Head Head exam: Present atraumatic and normocephalic Eye Eye exam: Present normal apperance and EOMI; Absent scleral icterus and conjunctival injection ENT ENT exam: Present normal exam, normal orophraynx and mucous membranes moist Neck Neck exam: Present normal inspection and full ROM Respiratory Respiratory exam: Present normal lung sounds bilaterally; Absent respiratory distress Cardiovascular Cardiovascular Exam: Present regular rate and normal rhythm GI/Abdominal GI/Abdominal exam: Present Abd soft, bowel sounds present all quadrents, distended, tenderness (umbilical tenderness) and hernia (umbilical hernia, unable to reduce initially) Extremities Exam Extremities exam: Present normal inspection and full ROM; Absent tenderness Back Exam Back exam: Present full ROM Neurological Exam Neurological exam: Present alert and oriented X3; Absent motor sensory deficit Psychiatric Psychiatric exam: Present normal affect and normal mood Skin Skin exam: Present warm, dry, intact and normal color Vital Signs Vital Signs: Vital Signs 02/05/20 20:56 02/06/20 00:56 Temperature 98.6 F 98.7 F Pulse Rate 83 88 Respiratory Rate 18 18 Blood Pressure 162/92 144/86 O2 Sat by Pulse Oximetry 99 99 MDM (comprehensive) Lab Data Labs: 02/05/20 21:35 02/05/20 21:35 Laboratory Results Last 24 hours 02/05/20 21:15: Urine Color Yellow, Urine Appearance Clear, Urine pH 7.0, Ur Specific [place] 1.008,Urine Protein Negative, Urine Ketones Trace A, Urine Blood Negative, Urine Nitrate Negative, Urine Bilirubin Negative, Urine Urobilinogen 0.2 eu/dl, Ur Leukocyte Esterase Negative, Add Ur Mi croanalysis No, Urine Glucose Negative 02/05/20 21:35: WBC 9.0, RBC 5.38, Hgb 16.6, Hct 47.1, MCV 87.5, MCH 30.9, MCHC 35.2, RDW 13, Plt Count 246, MPV 9.5, Immature Gran % (Auto) 0.2, Neut % (Auto) 55.4, Lymph % (Auto) 36.9, [place] % (Auto) 6.6, Eos % (Auto) 0.6, Baso % (Auto) 0.3 L, Lymph # (Auto) 3.3, Abs Immat Gran (auto) 0.0, Add Manual Diff No, Absolute Neutrophils 5.0, Monocytes # 0.6, Absolute Eosinophils 0.1, Absolute Basophils 0.0 02/05/20 21:35: PT 11.2, INR 1.1, PTT ([place]) 26.4 02/05/20 21:35: Sodium 137, Potassium 3.7, Chloride 105, Carbon Dioxide 25, Anion Gap 11, BUN 8 L, Creatinine 0.7, GFR Calculation Greater than 60, Glucose 92, Calcium 9.4, Total Bilirubin 0.7, AST 22, ALT 36, Alkaline Phosphatase 55, Serum Total Protein 6.6, Albumin 3.9 02/05/20 21:35: Lactic Acid 0.8 Radiology Data Radiology results: report reviewed and image reviewed Medical Decision Making Free Text/Narative:: The patient was evaluated for umbilical pain. The PE was significant for an initially incarcerated umbilical hernia with increased tenderness. The CT scan showed bowel and fatin the umbilical hernia. After applying ice to the area, the hernia was manually reduced and a binder placed. Plan Plan Plan: d/c home Plan of care: Follow up appointments discussed, Plan of care discussed with patient and or family, Patient encouraged to ask questions about plan and Patient agrees with plan of care Discharge Plan Admission/Discharge Dx Primary DC Diagnosis: Umbilical Hernia ED Provider: Skip Rutherford ED Status: Discharged Time Seen by Provider: 02/05/20 21:00 Triaged At: 02/05/20 20:56 Condition Condition: Improved Discharge Detail Disposition: Home, Self-Care Med Rec New Prescriptions: No Action meloxicam 7.5 mg tablet 7.5 mg PO BID 90 Days Qty: 180 RF: 3 citalopram 20 mg tablet 40 mg PO QDAY Qty: 30 RF: 0 lisinopril 40 mg tablet 40 mg PO DAILY 90 Days Qty: 90 RF: 3 alprazolam 0.5 mg tablet 0.5 mg PO QDAY MDD MDD-1 Qty: 30 RF: 0 (DME) BD Luer-Yanira Tip Control Syring 10 mL syringe 1 ea miscellaneous Q2W 30 Days Qty: 1 RF: 3 divalproex 500 mg tablet,delayed release (DR/EC) 500 mg PO HS 30 Days Qty: 30 RF: 6 Follow Up Visit/Referrals: DANII RENTERIA MD [PHYSICIAN] - Medications Medication reconciliation performed by provider at discharge: Yes Follow Up Care/Instructions Diet/Activity/Wound Care..: continue with binder in place, surgery clinic follow-up tomorrow *Discharge Patient* Discharge Orders: Discharge Order (Routine); Ordered 02/06/20 Ordered By: Skip Rutherford Discharge Date/Time: 02/06/20 01:37 Interventions Interventions: ED GI Gastrointestinal Last Done: 02/05/20 21:13 Report Signers: <Electronically signed by Skip Rutherford MD> Skip Rutherford MD 02/06/20 0140 Skip Rutherford MD SIGNATURE DA Report Cosigners: D: LYNN 02/05/202118 T: LYNN 02/05/202118 CC: Kelli Mcmanus Name Value Range Interpretation Code Description Data [place] rce(s) Supporting Document(s) ID Date Data Source [id number] 02/05/2020 10:00:00 PM EDT [facility] Reason for ordering culture: Abnormal fi ndings UAMethod of Collection:: Voided Name Value Range Interpretation Code Description Data [place] rce(s) Supporting Document(s) Color of Urine [facility] Appearance of Urine CLEAR [facility] pH of Urine by Test strip 7.0 5-8 [facility] Specific gravity of Urine by Refractometry 1.008 1.005-1.030 [facility] Leukocyte esterase [Presence] in Urine by Test strip NEGAT JALEN [facility] Nitrite [Presence] in Urine by Test strip NEGATIVE [facility] Protein [Presence] in Urine by Test strip NEGATIVE [facility] Glucose [Mass/volume] in Urine by Automated test strip NEGATIVE NEG ATIVE [facility] Ketones [Presence] in Urine by Test strip NEGATI VE Abnormal (applies to non- numeric results) [facility] Urobilinogen [Presence] in Urine 0.2-1 EU/dl [facility] Bilirubin.total [Presence] in Urine by Automated test strip NEGATIVE [facility] Erythrocytes [#/volume] in Urine by Test strip NEGATIVE NEGATIVE [facility] URINE MICROSCOPIC? (CIF) NO [facility] ID Date Data Source [id number] 02/01/2020 03:30:00 PM EDT [facility] Name Value Range Interpretation Code Description Data [place] rce(s) Supporting Document(s) Leukocytes [#/volume] in Blood by Automated count 10.0 10*3/uL 4.45-1 0.71 N [facility] Erythrocytes [#/volume] in Blood by Automated count 5.61 10*6/uL 4.3- 6.1 N [facility] Hemoglobin [Moles/volume] in Blood 17.4 g/dL 13-18 N [facility] Hematocrit [Volume Fraction] of Blood by Automated count 48.4 % 4 2-52 N [facility] Erythrocyte mean corpuscular volume [Ent itic volume] in Cord blood by Automated count 86.3 fL 80-96 N [facility] ital Erythrocyte mean corpuscular hemoglobin [Entitic mass] by Automated count 31.0 pg 27-31 [facility] mean corpuscular hemoglobin concentration [Mass/volume] in Cord blood 36.0 g/dL 33-37 N [facility] ital Erythrocyte distribution width [Entitic volume] by Automated count 13 % 11-15 N [facility] Platelets [#/volume] in Blood by Automated count 256 10*3/uL 130-472 N [facility] Platelet mean volume [Entitic volume] in Blood 9.5 fL 9.1-13.1 N [facility] Neutrophils/100 leukocytes in Blood by Automated count 55.4 % 41- 77 N [facility] Neutrophils [#/volume] in Blood by Automated count 5.6 U 1.7-7.6 N [facility] Lymphocytes/100 leukocytes in Blood by Automated count 35.2 % 14- 46 N [facility] Lymphocytes [#/volume] in Blood by Automated count 3.5 U 0.6-4.6 N [facility] Monocytes/100 leukocytes in Blood by Automated count 8.5 % 4-12 N [facility] Monocytes [#/volume] in Blood by Automated count 0.9 U 0.2-1.2 N [facility] Eosinophils/100 leukocytes in Blood by Automated count 0.5 % 0-7 N [facility] Eosinophils [#/volume] in Blood by Automated count 0.1 U 0.0-0.5 N [facility] Basophils/100 leukocytes in Blood by Automated count 0.3 % 0.4-1.3 Below low normal [facility] Basophils [#/volume] in Blood by Automated count 0.0 U 0.0-0.2 N [facility] NUCLEATED RED BLOOD CELL 0 % [facility] NUCLEATED RED BLOOD CELL# 0 U [facility] Immature granulocytes [Presence] in Blood by Automated count 0-2 N [facility] Immature granulocytes [#/volume] in Blood by Automated count 0.0 U 0-0.1 N [facility] Manual Differential panel - Blood NO [facility] ID Date Data Source [id number] 02/01/2020 03:59:00 PM EDT [facility] Name Value Range Interpretation Code Description Data [place] rce(s) Supporting Document(s) Urea nitrogen [Mass/volume] in Serum or Plasma 6 mg/dL 9-23 Below low normal [facility] Sodium [Moles/volume] in Serum or Plasma 134 mmol/L 132-146 [facility] Potassium [Moles/volume] in Serum or Plasma 4.0 mmol/L 3.5-5.5 [facility] Chloride [Moles/volume] in Serum or Plasma 101 mmol/L 99-109 [facility] Carbon dioxide, total [Moles/volume] in Serum or Plasma 28 mmol/L 20 -31 [facility] Anion gap in Serum or Plasma 9 mmol/L 8-16 N [facility] Glucose [Mass/volume] in Serum or Plasma 92 mg/dL 74-106 N [facility] Creatinine 0.9 mg/dL 0.5-1.1 [facility] Glomerular filtration rate/1.73 sq M.pre dicted [Volume Rate/Area] in Serum or Plasma Greater Than 60 ABOVE 60 [facility] Calcium [Mass/volume] in Serum or Plasma 9.9 mg/dL 8.5-10.1 N [facility] ID Date Data Source [id number] 02/01/2020 02:32:00 PM EDT [facility] Name: PIPER LICEA : 1970 Age: 49 MR#: [id number] Admit Date: 02/01/20 Provider: Naveed Hannon MD Room #: Consulting Provider: Dictation Date: 02/01/20 Intake Vital Signs 02/01/20 14:34 Current Height 5 ft 10 in Current Weight 249 lb Weight Measurement Method Standing Scale BMI 35.7 BP 130/72 Blood Pressure Location Lt brachial Position Sitting Pulse 81 Pulse Strength Normal Pulse Source Pulse Oximeter Temp 98.8 F Temp Source Oral Pulse Oximetry (%) 98 Oxygen Delivery Method room air Intake Visit Reasons: Hernia Nurse Note: pt states has had hernia x 4yrs Solar Technician Required: No Is patient in pain?: No Allergies dust mites Allergy (Severe, Uncoded 02/01/20 19:36) builds up drainage in eyes , post nasal drip rag weed Allergy (Severe, Uncoded 02/01/20 19:36) builds up eye drainage, post nasal drip HIV Testing Offer - ages 13-64 Requirement for HIV testing offer been met?: Declines today. Pretest education received and acknowledged Coronavirus Screening Screening Have you traveled outside of [facility] or [facility] in the last 14 days.: No Has patient experienced coronavirus symptoms: No PFSH Medical History (Updated 02/01/20 @ 14:51 by Eliane Omalley) Depression Hypertension Low testosterone in male Sleep apnea Surgical History (Updated 02/01/20 @ 19:40 by Naveed Hannon) History of cardiac radiofrequency ablation Umbilical hernia Family History Father No problems noted. Mother No problems noted. Social History Does the Patient have a Healthcare Proxy: No Does Patient have a DNR?: No Does Patient have a Living Will?: No marital status: Single Hx Recent Travel (where): No how long ago did patient quit smokin yrs ago, uses smokless tobacco though alcohol intake: never HPI Hernia 49 yoM who comes in with long- standing umbilical hernia that has been enlarging with time and more bothersome now and wishes to get it repaired. It is reducible and never had an episode of incarceration. umbilical heavy lifting and long standing Review of Systems Const All systems reviewed are unremarkable except as noted in HPI and below Eyes Reports system reviewed and no additional complaints, except as documented and Reports requires corrective lenses ENT Reports system reviewed and no additional complaints, except as documented Card Reports system reviewed and no additional complaints, except as documented Resp Reports syste m reviewed and no additional complaints, except as documented GI Reports system reviewed and no additional complaints, except as documented Reports system reviewed and no additional complaints, except as documented Musc Reports system reviewed and no additional complaints, except as documented Skin/Breast Reports system reviewed and no additional complaints, except as documented and Reports other (umbilical hernia) Neuro Reports system reviewed and no additional complaints, except as documented Psych Reports system reviewed and no additional complaints, except as documented, Reports anxiety and Reports depression Endo Reports system reviewed and no additional complaints, except as documented Tony/Lymph Reports system reviewed and no additional complaints, except as documented Aller/Immun Reports system reviewed and no additional complaints, except as documented Exam Const General: cooperative, healthy appearing, no acute distress, well developed and well groomed Nutritional Appearance: well nourished Orientation: alert, awake and oriented x3 HENMT Head: normal to inspection, normocephalic, atraumatic and no scalp tenderness Ears: hearing grossly normal bilaterally, external ears normal, TM's normal bilaterally, EAC's normal and no periauricular adenopathy General nose exam: external nose normal, nares normal, no nasal polyps, septum normal and no nasal discharge Face and sinus: normal facial exam and sinuses nontender Mouth: oral mucosae normal, lip normal, tongue normal, oropharynx normal and moist mucous membranes Throat: posterior oropharynx normal Eyes General: appearance normal, both eyes and all related structures Periorbital: periorbital findings normal Eyelids: eyelids normal Conjunctivae: conjunctivae normal Sclera: sclerae normal Pupils: PERRL EOM: EOM intact bilaterally Direct ophthalmoscopy: normal light reflex Neck Neck: normal visual inspection, full ROM, no lymphadenopathy, supple and no JVD present Neck mass: No Thyroid: thyroid normal Carotids: normal carotid upstroke Resp Effort Inspection: normal respiratory effort Auscultation: clear to auscultation bilaterally Percussion: percussion normal Cardio Jugular venous pressure: no JVD Palpation: normal PMI Rate: regular rate Rhythm: regular rhythm Heart Sounds: S1 normal and S2 normal Pulses: normal peripheral pulses GI Inspection: Yes normal to inspection Palpation: soft, no hepatosplenomegaly, no aortic enlargement and nontender Percussion: normal to percussion Auscultation: normal bowel sounds Musc Cervical Spine: normal cervical lordosis and cervical ROM normal Thoracic/Lumbar Spine: thoracic and lumbar spine normal to inspection, thoraco-lumbar ROM normal andstraight leg raise negative bilaterally Pelvis: no pain with anterior-posterior compression and no pain with lateral compression Skin Lesions: no lesions Rashes: no rashes Hair: normal Nails: normal Neuro General: patient alert, patient awake, patient oriented x3, gait normal, moves all extremities and normal light touch, pain and propioception Cranial Nerves: CN's II-XII intact bilaterally Cognition: normal cognition Speech: speech normal Gait: normal gait Motor: muscle tone normal throughout and strength 5/5 throughout Sensory Exam: no sensory deficits noted Extrem General: normal to inspection, full ROM, capillary refill normal, no clubbing, cyanosis or edema andno muscle atrophy Psych Appearance: grossly normal and well kempt Mental Status: mental status grossly normal Speech and Movement: speech and movement normal Mood: congruent mood Affect: normal affect Attitude: cooperative Thought Process: normal Thought Content: normal Insight: insight good Judgment: judgment good Assessment Plan Assessment Plan (1) Hernia: Code(s): K46.9 - Unspecified abdominal hernia without obstruction or gangrene Plan - Naveed Hannon: 49 yoM who comes in with long-standing umbilical hernia that has been enlarging with time and more bothersome now and wishes to get it repaired. It is reducible and never had an episode of incarceration. -Discussed repair of the umbilical hernia via open approach. Details fo the procedure as well as risks which include but are not limited to bleeding, infection, and recurrences were all discussed. He wishes to proceed with the operation. (2) Umbilical hernia: Status: Acute Code(s): K42.9 - Umbilical hernia without obstruction or gangrene SNOMED Code(s): 924028285 Category: Surgical Dictated by: <Electronically signed by Naveed Hannon > Naveed Hannon 02/01/201939 Naveed Hannon SIGNATURE DA Report Cosigners: D: ROBINSON 02/01/20 143 T: HARRIS 02/01/20 143 CC: Name Value Range Interpretation Code Description Data [place] rce(s) Supporting Document(s) ID Date Data Source [id number] 12/20/2019 10:21:00 AM EDT [facility] Patient Name: PIPER LICEA DO B: 1970 Sex: M Pt Unit #: [id number] Location:[facility] Provider: Visit Date/Time: 12/20/19 Primary Insurance: [employer] Secondary Insurance: Self Pay Intake Vital Signs 12/20/19 10:29 Current Weight 260 lb Weight Measurement Method Standing Scale BP 132/76 Blood Pressure Location Lt brachial Position Sitting Respiration 18 Pulse 82 Pulse Source Pulse Oximeter Temp 98.6 F Temp Source Oral Pulse Oximetry (%) 97 Intake Visit Reasons: Skin complaints Nurse Note: 2 moles on top each other on (R) upper chest/shoulder area. Raised and itches. Years agoDr. Esteban burned that area. It was a oval, flat mole. But has changed and came back. Panel Beater added another nasal spray with flonase but unable to remember name. FYI. Is patient in pain?: No Allergies dust mites Allergy (Severe, Uncoded 12/20/19 10:25) builds up drainage in eyes , post nasal drip rag weed Allergy (Severe, Uncoded 12/20/19 10:25) builds up eye drainage, post nasal drip Fall Risk Medications:: Sedatives, Psychotropics and Antihypertensives HIV Testing Offer - ages 13-64 HIV testing Offer: No Coronavirus Screening Screening Have you traveled outside of [facility] or [facility] in the last 14 days.: No Has patient experienced [facility] symptoms: No [facility] Social History (Updated 12/20/19 @ 10:22 by Emily Jorge) Does the Patient have a Healthcare Proxy: No Does Patient have a DNR?: No Does Patient have a Living Will?: No Hx Recent Travel (where): No Smokeless tobacco user: other how long ago did patient quit smokin yrs ago, uses smokless tobacco though HPI Additional HPI HPI Details: Piper presents to the clinic for a changing nevi to the right upper chest. Review of Systems Const All systems reviewed are unremarkable except as noted in HPI and below Reports as per HPI Skin/Breast Reports new lesions (Right upper chest) Exam Const General: cooperative, healthy appearing and comfortable Nutritional Appearance: average body habitus and well nourished Orientation: alert, awake and oriented x3 Skin Lesions: lesion noted Other: Right upper chest/shoulder region. Note a well flow operator griffin surface approx 1-2cm in diameter at longest region. On top of this is a triple nodule raised darker brown nevi. Non-tender. Assessment Plan Assessment Plan (1) Suspicious nevus: Status: Acute Comment: Referred to derm for biopsy. Code(s): D22.9 - Melanocytic nevi, unspecified SNOMED Code(s): 423233394 Category: Medical Orders: Referrals: Dermatology Referral Orders Other Medications: New: fluticasone propionate 50 mcg/actuation (Flonase Allergy Relief) administer into each nostril 2 sprays intranasal QDAY 1 unit 5RF Electronically Signed By: <Electronically signed by Kelli Mcmanus NP> Date/Time Signed: 12/20/19 1051 Name Value Range Interpretation Code Description Data [place] rce(s) Supporting Document(s) ID Date Data Source [id number] 10/19/2019 09:57:00 AM EDT [facility] Patient Name: PIPER LICEA DO B: 1970 Sex: M Pt Unit #: [id number] Location:[facility] Provider: Visit Date/Time: 10/19/19 Primary Insurance: [employer] Secondary Insurance: Self Pay Intake Vital Signs 10/19/19 10:05 Current Height 5 ft 10 in Current Weight 267 lb Weight Measurement Method Standing Scale BMI 38.2 BP 144/88 Blood Pressure Location Lt brachial Position Sitting Respiration 18 Pulse 73 Pulse Strength Normal Pulse Source Pulse Oximeter Temp 98.2 F Temp Source Oral Pulse Oximetry (%) 97 Oxygen Delivery Method room air Intake Visit Reasons: Allergies Nurse Note: Pt presents today for f/u allergies. pt says that since last year he has had a runny nose and eyes. Pt has been tx with loratadine QD and Singulair Q HS and it has not been helping. Ptthinks that he has mold in his house and this could be causing his issues. Pt would like to be referred to stock analyst for testing. Pt requests a sleep study. He wakes up a lot during the night , tired throughout the day and last night he felt like he could not breathe. Solar Technician Required: No Accompanied by: Self / Same as Patient Is patient in pain?: No Allergies No Known Drug Allergies Allergy (Unverified 07/12/19 09:54) Fall Risk History of falls: No Ambulatory Aid:: None Gait/Transferring:: Normal HIV Testing Offer - ages 13-64 Requirement for HIV testing offer been met?: Declines today. Pretest education received and acknowledged SBIRT Annual Questionnaire Are you currently in recovery for alcohol or substance use?: Yes How many times in the past year have you had 5 or more drinks in a day?: None How many times in the past year have you used a recreational drug or used a prescription medication for nonmedical reasons?: None Do you need a note to return Do you need a note to return to daycare/school/sports/work: No Coronavirus Screening Screening Have you traveled outside of [facility] or [facility] in the last 14 days.: No Has patient experienced coronavirus symptoms: No [facility] Social History (Updated 07/12/19 @ 09:52 by Emily Jorge) Does the Patient have a Healthcare Proxy: No Does Patient have a DNR?: No Does Patient have a Living Will?: No Hx Recent Travel (where): No how long ago did patient quit smokin yrs ago, uses smokless tobacco though Review of Systems Const All systems reviewed are unremarkable except as noted in HPI and below Reports daytime sleepiness, Reports difficulty sleeping, Reports snoring and Reports weight gain Eyes Reports itchy eyes ENT Reports nasal congestion Resp Reports cough, Reports snoring and Reports other (witnessed apneic episodes at night) GI Reports abdominal pain (hernia; bellybutton) Aller/Immun Reports itchy eyes Exam HENMT Ears: hearing grossly normal bilaterally, external ears normal, EAC abnormal excessive cerumen bilaterally and TM abnormal bulging bilaterally Face and sinus: normal facial exam and sinuses nontender Throat: posterior oropharynx normal and uvula midline Resp Effort Inspection: normal respiratory effort Auscultation: clear to auscultation bilaterally Cardio Rate: regular rate Rhythm: regular rhythm Heart Sounds: S1 normal and S2 normal GI Palpation: soft and hernia umbilical Assessment Plan Assessment Plan (1) Environmental and seasonal allergies: Code(s): J30.89 - Other allergic rhinitis Plan - Kelli Mcmanus SLIP COVER MAKER: I will refer to stock analyst. He is taking 2 allergy medications already at this point. Testing may be helpful, possible serum injections. (2) Umbilical hernia: Status: Acute Comment: Referral to gen surg. Code(s): K42.9 - Umbilical hernia without obstruction or gangrene SNOMED Code(s): 392526750 Category: Medical Orders: Referrals: General Surgery Referral (3) Sleep apnea: Status: Acute Comment: Referred for sleep study and possible CPAP fitting Code(s): G47.30 - Sleep apnea, unspecified SNOMED Code(s): 07918871 Category: Medical Electronically Signed By: <Electronically signed by Kelli Mcmanus NP> Date/Time Signed: 10/19/19 1037 Name Value Range Interpretation Code Description Data [place] rce(s) Supporting Document(s) ID Date Data Source [id number] 07/31/2019 11:34:00 AM EST [facility] Method of Collection:: Voided Name Value Range Interpretation Code Description Data [place] rce(s) Supporting Document(s) Color of Urine [facility] Appearance of Urine CLEAR [facility] pH of Urine by Test strip 8.0 5-8 [facility] Specific gravity of Urine by Refractometry 1.022 1.005-1.030 [facility] Leukocyte esterase [Presence] in Urine by Test strip NEGAT JALEN [facility] Nitrite [Presence] in Urine by Test strip NEGATIVE [facility] Protein [Presence] in Urine by Test strip NEGATIVE [facility] Glucose [Mass/volume] in Urine by Automated test strip NEGATIVE NEG ATIVE [facility] Ketones [Presence] in Urine by Test strip NEGATIVE [facility] Urobilinogen [Presence] in Urine 0.2-1 EU/dl [facility] Bilirubin.total [Presence] in Urine by Automated test strip NEGATIVE [facility] Erythrocytes [#/volume] in Urine by Test strip NEGATIVE NEGATIVE [facility] URINE MICROSCOPIC ADDED NO [facility] ID Date Data Source [id number] 07/31/2019 11:39:00 AM EST [facility] Method of Collection:: Voided Name Value Range Interpretation Code Description Data [place] rce(s) Supporting Document(s) Leukocytes [#/volume] in Blood by Automated count 7.7 10*3/uL 4.45-10 .71 N [facility] Erythrocytes [#/volume] in Blood by Automated count 5.92 10*6/uL 4.3- 6.1 N [facility] Hemoglobin [Moles/volume] in Blood 17.9 g/dL 13-18 N [facility] Hematocrit [Volume Fraction] of Blood by Automated count 51.5 % 4 2-52 N [facility] Erythrocyte mean corpuscular volume [Ent itic volume] in Cord blood by Automated count 87.0 fL 80-96 N [facility] ital Erythrocyte mean corpuscular hemoglobin [Entitic mass] by Automated count 30.2 pg 27-31 N [facility] l Erythrocyte mean corpuscular hemoglobin concentration [Mass/volume] in Cord blood 34.8 g/dL 33-37 N [facility] ital Erythrocyte distribution width [Entitic volume] by Automated count 13 % 11-15 N [facility] Platelets [#/volume] in Blood by Automated count 239 10*3/uL 130-472 N [facility] Platelet mean volume [Entitic volume] in Blood 9.9 fL 9.1-13.1 N [facility] Neutrophils/100 leukocytes in Blood by Automated count 58.8 % 41- 77 N [facility] Neutrophils [#/volume] in Blood by Automated count 4.5 U 1.7-7.6 N [facility] Lymphocytes/100 leukocytes in Blood by Automated count 32.6 % 14- 46 N [facility] Lymphocytes [#/volume] in Blood by Automated count 2.5 U 0.6-4.6 N [facility] Monocytes/100 leukocytes in Blood by Automated count 7.8 % 4-12 N [facility] Monocytes [#/volume] in Blood by Automated count 0.6 U 0.2-1.2 N [facility] Eosinophils/100 leukocytes in Blood by Automated count 0.6 % 0-7 N [facility] Eosinophils [#/volume] in Blood by Automated count 0.1 U 0.0-0.5 N [facility] Basophils/100 leukocytes in Blood by Automated count 0.1 % 0.4-1.3 Below low normal [facility] Basophils [#/volume] in Blood by Automated count 0.0 U 0.0-0.2 N [facility] NUCLEATED RED BLOOD CELL 0 % [facility] NUCLEATED RED BLOOD CELL# 0 U [facility] Immature granulocytes [Presence] in Blood by Automated count 0-2 N [facility] Immature granulocytes [#/volume] in Blood by Automated count 0.0 U 0-0.1 N [facility] Manual Differential panel - Blood NO [facility] ID Date Data Source [id number] 07/31/2019 12:13:00 PM EST [facility] Method of Collection:: Voided Name Value Range Interpretation Code Description Data [place] rce(s) Supporting Document(s) Urea nitrogen [Mass/volume] in Serum or Plasma 17 mg/dL 9-23 [facility] Sodium [Moles/volume] in Serum or Plasma 138 mmol/L 132-146 [facility] Potassium [Moles/volume] in Serum or Plasma 4.5 mmol/L 3.5-5.5 [facility] Chloride [Moles/volume] in Serum or Plasma 105 mmol/L 99-109 [facility] Carbon dioxide, total [Moles/volume] in Serum or Plasma 28 mmol/L 20 -31 [facility] Anion gap in Serum or Plasma 10 mmol/L 8-16 [facility] Glucose [Mass/volume] in Serum or Plasma 97 mg/dL 74-106 [facility] Creatinine 0.9 mg/dL 0.5-1.1 [facility] Glomerular filtration rate/1.73 sq M.pre dicted [Volume Rate/Area] in Serum or Plasma Greater Than 60 ABOVE 60 [facility] Alanine aminotransferase [Enzymatic acti vity/volume] in Serum or Plasma by With P-5'-P 44 U/L 10-49 N [facility] ital Aspartate aminotransferase [Enzymatic ac tivity/volume] in Serum or Plasma by With P-5'-P 20 U/L 0-33 [facility] pital Alkaline phosphatase [Enzymatic activity/volume] in Serum or Plasma 63 U/L 45-129 [facility] Calcium [Mass/volume] in Serum or Plasma 9.1 mg/dL 8.5-10.1 N [facility] Bilirubin.total [Mass/volume] in Serum or Plasma 1.0 mg/dL 0.3-1.2 [facility] Albumin [Mass/volume] in Serum or Plasma by Bromocresol purple (BCP) dye binding method 4.1 g/dL 3.2-4.8 N [facility] ital Protein [Mass/volume] in Serum or Plasma 7.1 g/dL 5.7-8.2 N [facility] ID Date Data Source [id number] 07/31/2019 12:13:00 PM [facility] Method of Collection:: Voided Name Value Range Interpretation Code Description Data Geneva rce(s) Supporting Document(s) Triglycerides 174 mg/dL 0-[address] [facility] Cholesterol 212 mg/dL 120-200 Above high normal [facility] HDL Cholesterol 44 mg/dL [facility] HDL Less than 40 mg/dL: Major risk for CHDHDL Greater than 59 mg/dL: Low risk for CHD LDL Cholesterol, Calc 134 mg/dL 0-100 Above high normal [facility] ID Date Data Source [id number] 07/12/2019 09:52:00 AM [facility] Patient Name: PIPER LICEA DO B: 1970 Sex: M Pt Unit #: [id number] Location:[facility] Provider: Visit Date/Time: 07/12/19 Primary Insurance: bMobilizedS Secondary Insurance: Self Pay Intake Vital Signs 07/12/19 09:52 Current Height 5 ft 10 in Current Weight 256 lb Weight Measurement Method Standing Scale BMI 36.7 BP 132/88 Blood Pressure Location Rt brachial Position Sitting Respiration 18 Pulse 71 Pulse Source Pulse Oximeter Pulse Oximetry (%) 99 Intake-Medicare Annual Visit Reasons: Medicare Annual Wellness Follow Up, Medication check, Hypertension Follow-up Nurse Note: Medication check and Due for AWV. Has a bulging area right above his umbilicus but doesnt hurt, allergies have been bad. Pt stopped his singular cause it wasnt doing anything for it. Is patient in pain?: No (at times back will hurt though. ) Allergies No Known Drug Allergies Allergy (Unverified 07/12/19 09:54) Feel stressed/tense/nervous/anxious/difficulty sleeping: to some extent (on medications for these) Medications alprazolam 0.5 mg PO QDAY MDD MDD-1 citalopram 30 mg (1.5 x 20 mg) PO QDAY divalproex PO gabapentin 400 mg PO QID lisinopril 40 mg PO DAILY 90 days loratadine (Allergy Relief (loratadine)) 10 mg PO Q24H 90 days meloxicam 7.5 mg PO BID 90 days montelukast 10 mg PO QPM 90 days sildenafil (Viagra) 100 mg PO DAILY PRN syringe (disposable) (BD Luer-Yanira Tip Control Syringe) With 1 inch 23g needle. testosterone cypionate 300 mg (1.5 mL) IM Q2W 14 days MDD 300 Fall Risk History of falls: No Ambulatory Aid:: None Gait/Transferring:: Normal Medications:: Psychotropics and Antihypertensives How often do you have a drink containing alcohol?: never How many drinks containing alcohol do you have on a typical day?: 1 to 2 (none) How often do you have 6 or more drinks on 1 occasion?: never AUDIT-C Alcohol total score: 0 - No Review Req. HIV testing Offer: Yes Requirement for HIV testing offer been met?: Declines today. Pretest education received and acknowledged FOR[facility]LY [facility], 1928–1983 Social History (Updated 07/12/19 @ 09:52 by Emily Jorge) Does the Patient have a Healthcare Proxy: No Does Patient have a DNR?: No Does Patient have a Living Will?: No Hx Recent Travel (where): No Smoking Status: Former smoker Smokeless tobacco user: other how long ago did patient quit smokin yrs ago, uses smokless tobacco though Medicare Annual Wellness Type Of Examation Type of Exam: Initial Wellness Exam EKG EKG Performed: No Medication list Medications alprazolam 0.5 mg PO QDAY MDD MDD-1 citalopram 30 mg (1.5 x 20 mg) PO QDAY divalproex PO gabapentin 400 mg PO QID lisinopril 40 mg PO DAILY 90 days loratadine (Allergy Relief (loratadine)) 10 mg PO Q24H 90 days meloxicam 7.5 mg PO BID 90 days montelukast 10 mg PO QPM 90 days sildenafil (Viagra) 100 mg PO DAILY PRN syringe (disposable) (BD Luer-Yanira Tip Control Syringe) With 1 inch 23g needle. testosterone cypionate 300 mg (1.5 mL) IM Q2W 14 days MDD 300 Allergies Allergies No Known Drug Allergies Allergy (Unverified 07/12/19 09:54) Current Diet Current diet: regular PHQ-2/9 Over the last 2 weeks, how often have you been bothered by any of the following problems? 1. Little interest or pleasure in doing things: not at all 2. Feeling down, depressed, or hopeless: not at all Total score: 0 Functional Assessment B athing: Independent Dressing: Independent Toileting: Independent Transferring: Independent Continence: Independent Feeding: Independent Total Score: 6 Home Safety Home Safety: Reports Bathroom: Grab bars, Lighting: Adequate, [place]: No throw rugs and Stairs: Handrail available Hearing Hearing Left Ear: Normal Hearing Right Ear: Normal Hearing test method: whispered voice IADL Assessment Functional abilities: Up Go test, pt steady, Pt independent w/phone, Pt independent w/transportation, Pt independent w/shopping, Pt independent w/housework, Pt independent w/meal preparation, Pt independent w/laundry, Pt independent w/medication and Pt independent w/finances Cognitive Evaluation Oriented to the date:: Yes Oriented to time:: Yes Oriented to place:: Yes Mood: grossly normal Affect: Normal Judgement: normal Needs caregiver for assistance: No Clock drawing: Yes Clock drawing with correct time: Yes HPI Additional HPI HPI Details: Piper presents to the clinic for his annual medicare visit. Concern for his allergies. At his last appt he was instructed to add an otc dose of antihistamine in addition to the singulair. He misunderstood this information, and has not been doing this. Hypertension Followup (Card) * Type of visit: follow-up Onset: >1 year Current neurological symptoms: Denies diplopia, headache(s), numbness, loss of vision, weakness or other Current cardiovascular symptom: denies chest pain, dyspnea, dyspnea on exertion, palpitations, dizziness or other Current endocrine symptoms: Denies diaphoretic episodes, myalgias, constipation, cold intolerance, weight gain, skin change or other Current renal disease symptoms: denies nausea, vomiting or weight loss Most Recent Cardiac Tests: No Data to Display Monitoring BP monitoring: home monitoring BP comorbidities: less than 130/80 BP control: satisfactory BP target: less than 130/80 Diet type: low sodium Medication compliance: good Review of Systems Const All systems reviewed are unremarkable except as noted in HPI and below Reports as per HPI, Denies daytime sleepiness, Denies excessive sweating, Denies headache(s), Deniessnoring, Denies weakness, Denies weight gain and Denies weight loss Eyes Denies blurry vision, Denies change in vision, Denies diplopia, Denies dry eyes, Denies irritation and Denies loss of vision ENT Denies dizziness and Denies headache(s) Details: Report that his girlfriend noticed a lump in the left neck, wants checked. Denies pain. Card Denies chest pain, Denies chest pain at rest, Denies chest pain with activity, Denies pedal edema, Denies lightheadedness, Denies palpitations, Denies dyspnea and Denies dyspnea on exertion Resp Denies chest congestion, Denies pain with cough, Denies dyspnea, Denies dyspnea on exertion and Denies snoring GI Denies abdominal pain, Denies bloating, Denies constipation, Denies early satiety, Denies diarrhea, Denies nausea and Denies vomiting Denies nocturia and Den ies urinary frequency Musc Denies myalgias, Denies muscle weakness, Denies numbness and Denies tingling Skin/Breast Denies change in pigmentation, Denies lesions, Denies nail changes, Denies rash and Denies unusual bruising Neuro Denies dizziness, Denies headache(s), Denies loss of vision, Denies numbness, Denies tingling, Denies paresthesias and Denies weakness Psych Denies abnormal sleep pattern, Denies anxiety, Denies change in appetite, Denies depression and Denies irritability Endo Denies cold intolerance, Denies excessive sweating, Denies flushing, Denies polydipsia, Denies polyuria and Denies palpitations Exam Const General: cooperative, healthy appearing and comfortable Nutritional Appearance: average body habitus and well nourished Orientation: alert, awake and oriented x3 Eyes General: appearance normal, both eyes and all related structures Eyelids: eyelids normal Conjunctivae: conjunctivae normal Sclera: sclerae normal Pupils: PERRL and normal by confrontation EOM: EOM intact bilaterally Neck Neck: normal visual inspection, full ROM and no lymphadenopathy Neck mass: No Thyroid: thyroid normal Resp Effort Inspection: normal respiratory effort Auscultation: clear to auscultation bilaterally Cardio Rate: regular rate Rhythm: regular rhythm Heart Sounds: S1 normal and S2 normal Skin Lesions: no lesions Rashes: no rashes Wounds: no wounds Hair: normal Neuro General: alert, awake and oriented x3 Cognition: normal cognition Speech: speech normal Extrem General: no edema Psych Appearance: grossly normal Mental Status: mental status grossly normal Speech and Movement: speech and movement normal Mood: congruent mood Affect: normal affect Attitude: cooperative Thought Process: normal Thought Content: normal Insight: insight good Judgment: judgment good Assessment Plan Assessment Plan (1) Medicare annual wellness visit, subsequent: Code(s): Z00.00 - Encounter for general adult medical examination without abno rmal findings 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 Health maintenance up to date, labs ordered. No concerns. Follow up in 6 months. Orders: Orders: CMP 1 Week LIPID PANEL 1 Week CBC W AUTO DIFF 1 Week URINALYSIS 1 Week (2) Hypertension: Code(s): I10 - Essential (primary) hypertension Plan - Kelli Mcmanus NP: Well controlled. Labs ordered. Follow up in 6 months. Orders: Orders: CMP 1 Week LIPID PANEL 1 Week CBC W AUTO DIFF 1 Week URINALYSIS 1 Week (3) Lump in neck: Status: Acute Comment: Nothing noted on exam. Could have been an inflammed lymph node. However, has resolved. Continue to monitor, if any changes RTC. Code(s): R22.1 - Localized swelling, mass and lump, neck SNOMED Code(s): 828980203 Category: Medical Orders Other Medications: New: loratadine (Allergy Relief (loratadine)) 10 mg PO Q24H 90 days 90 tabs 3RF Changed: From: montelukast 10 mg PO QPM 90 tabs 3RF To: montelukast 10 mg PO QPM 90 days 90 tabs 3RF Instructions: DASH Eating Plan (GEN) Hypertension (GEN) Electronically Signed By: <Electronically signed by Kelli Mcmanus SLIP COVER MAKER> Date/Time Signed: 07/12/19 1023 Name Value Range Interpretation Code Description Data Geneva rce(s) Supporting Document(s) ID Date Data Source [id number] 05/29/2019 01:24:00 PM EST [facility] 1 OrderSheet [facility] Emergency Department [address] [place] [address] Phone #: ext- [phone] 05/29/2019 13:00 Patient: PIPER LICEA Sex: M : 1970 Age: 48yWEIGHT:113.3 kg (S) HEIGHT:70 inches (S) BMI:35.8ALLERGIES: No Known Drug AllergyCHIEF COMPLAINT: painDIAGNOSIS: Pain in lower limb, Sprain of joint, Muscle strainLAB ORDERSOrder Description Priority Entered Acknowledged InitialedCBC w Diff STAT 13:17 05/29/2019 13:19 Antonia Fuentes RN, M.D.;CMP STAT 13:17 05/29/2019 13:19 Antonia Fuentes RN, M.D.;Magnesium STAT 13:17 05/29/2019 13:19 Antonia Fuentes RN, M.D.;DIAGNOSTIC STUDY ORDERSOrder Description Priority Entered Acknowledged InitialedMEDICATION/IV/DRIP/FLUID ORDERSOrder Descri ption Priority Entered Acknowledged InitialedToradol IM 30 mg 13:17 05/29/2019 13:31 Scot(NOW x1) Antonia Frazier RN, M.D.;Cyclobenzaprine 13:17 05/29/2019 13:28 PeterPO 10 mg (NOW x1) Antonia Frazier RN, M.D.;GENERAL ORDERSOrder Description Priority Entered Acknowledged Initialed[Electronically signed by Scot Mena RN (16:16 05/29/2019)][Electronically signed by Antonia Frazier M.D. (06:46 05/30/2019)][Electronically locked by Scot Mena RN (16:16 05/29/2019)] Name Value Range Interpretation Code Description Data Geneva rce(s) Supporting Document(s) ID Date Data Source [id number] 05/29/2019 01:24:00 PM [facility] 1 Medication Reconciliation Report [facility] Emergency Department [address] [place] [address] Phone #: ext- [phone] 05/29/2019 13:00 Patient: PIPER LICEA Sex: M : 1970 Age: 48yWeight: 113.3 kgHeight/Length: 70 in.BMI: 35.8ALLERGIES: No Known Drug AllergyThe patient's Home Medications are listed below:THE FOLLOWING MEDICATIONS NEED TO BE RECONCILED: CeleXA Oral Depakote Oral Gabapentin Oral Meloxicam Oral Xanax OralThe source(s) of the original Home Medication information:Not obtained.The following Medications were given to the patient in the Emergency Department:Cyclobenzaprine [PO] PO 10 mg, administered: 05/29/2019 1:28:00 PMToradol [IM] IM 30 mg, administered: 05/29/2019 1:31:00 PMThe following Medications were prescribed to the patient:cyclobenzaprine tablet 10 mg tablet Administer 1 tablet three times a day as needed for pain for 5 days --Dispense 15 tablet. Refills: 0. Substitution permitted.Pharmacy - [place] [address]. FaxNumber: . -- Antonia Frazier M.D. Name Value Range Interpretation Code Description Data Geneva rce(s) Supporting Document(s) ID Date Data Source [id number] 05/29/2019 01:24:00 PM [facility] 1 Medication Administration Record [facility] Emergency Department [address] [place] [address] Phone #: ext- [phone] 05/29/2019 13:00 [id number] Sex[facility] : 1970 Age: 48yWeight: 113.3 kgHeight/Length: 70 inBMI: 35.8ALLERGIES: No Known Drug Allergy Date/Time Medication Administered Medication OrderedGiven TORADOL [IM] (KETOROLAC Toradol IM 30 mg (NOW x1)13:31 05/29/2019 TROMETHAMINE)Scot Mena RN Dose: 30 mg IMGiven CYCLOBENZAPRINE [PO] Cyclobenzaprine PO 10 mg (NOW13:28 05/29/2019 Dose: 10 mg Tablets PO x1)Scot Mena RN Name Value Range Interpretation Code Description Data [place] rce(s) Supporting Document(s) ID Date Data Source [id number] 05/29/2019 01:24:00 PM EST [facility] 1 General Instructions [facility] Emergency Department [address] [place] [address] Phone #: ext- [phone] 05/29/2019 13:00 Patient: PIPER LICEA Sex: M : 1970 Age: 48yAcute left thigh pain.Muscle strain of the left hamstrings.Sprain of the lower extremity.INSTRUCTIONSApply ice. No driving or operating machinery. No strenuous activity. You may walk and bear weight astolerated.Warnings: Further evaluation is necessary.SEDATIVE MEDICATION: You were given sedative medication during your visit. Do not drive or operatedangerous machinery.CONTROLLED SUBSTANCE WARNINGS.GENERAL WARNINGS: Return or contact your physician immediately if your condition worsens orchanges unexpectedly, if not improving as expected, or if other problems arise.Prescription Medications:cyclobenzaprine tablet 10 mg tablet Administer 1 tablet three times a day as needed for pain for 5 days --Dispense 15 tablet. Refills: 0. Substitution permitted.Pharmacy - [facility] - [address] [place] [address]. FaxNumber: [phone].Follow-up:Follow up with your healthcare provider in three days if not better. Call for an appointment. Reason forreferral: evaluation and treatment. Summary of care provided to patient, family and follow-up provider viapaper.Understanding of the discharge instructions verbalized by patient and family. ADDITIONAL INFORMATIONMyofascial Pain SyndromeYour pain is caused by a state of chronic muscle tension. This condition is called by various names:myofascial pain, fibrositis, and trigger point pain. This can also be due to mechanical stress, such asworking at a BMdr terminal for long periods or work that requires repetitive motions of the arms orhands. It can also be caused by emotional stress, such as problems on the job or in your personal 2 General Instructions [facility] Emergency Department [address] [place] [address] Phone #: ext- [phone] 05/29/2019 13:00 Patient: PIPER LICEA Sex: M : 1970 Age: 48ylife. Sometimes there is no obvious cause. The pain can happen in the area of the muscle spasm orat a site distant to it. For example, spasm of a neck muscle can cause headache. Spasm of themuscle near the shoulder blade can cause pain shooting down the arm.Home care Try to identify the factors that may be causing your problem and change them: o If you feel that emotional stress is a cause of your pain, learn methods to better deal with the stress in your life. These may include regular exercise, muscle relaxation techniques, meditation, or simply taking time out for yourself. Talk with your healthcare provider or go to a local bookstore and review the many books and tapes about reducing stress. o If you feel that physical stress is a cause for your pain, try to change any poor work habits. You may use cjzk-nnh-[id number] pain medicine to control pain, unless another medicine was prescribed. If you have chronic liver or kidney disease or ever had a stomach ulcer or gastrointestinal bleeding, talk with your healthcare provider before using these medicines. Apply an ice pack over the injured area for 15 to 20 minutes every 3 to 6 hours. You should do this for the first 24 to 48 hours. You can make an ice pack by filling a plastic bag that seals at the top with ice cubes and then wrapping it with a thin towel. Be careful not to injure your skin with the ice treatments. Ice should never be applied directly to skin. Continue the use of ice packs for relief of pain and swelling as needed. After 48 hours, apply heat (warm shower or warm bath) for 15 to 20 minutes several times a day, or alternate ice and heat. Massage the trigger point and stretch out the muscle. Trigger point massage can be done by applying heat to the area to warm and prepare the muscle. Then have someone apply steady thumb pressure directly on the knot in the muscle for 30 seconds. Release the pressure, then massage the surrounding muscle. Repeat the process, applying more pressure to the trigger point each time. Do this up to the limit of pain. With each treatment, the trigger point should become less tender and the pain should decrease. You can apply local pressure to trigger points in the back by lying on the floor with a tennis ball under the trigger point.Follow-up careFollow up with your healthcare provider, or as advised. You may need physical therapy if you don'trespond to home treatment alone.Call [phone] if you have: 3 General Instructions [facility] Emergency Department [address] [place] [address] Phone #: ext- [phone] 05/29/2019 13:00 Patient: PIPER LICEA Sex: M : 1970 Age: 48y A trigger point in the chest muscles, pain that becomes more severe, lasts longer, or spreads into your shoulder, arm, or jaw Chest pain or discomfort Trouble breathing with or without chest discomfort Sweating, lightheadedness, nausea, or vomiting along with chest discomfort Sudden weakness or numbness in the arm, leg, or face, especially if this happens on one side of the bodyWhen to seek medical adviceCall your healthcare provider right away if any of these occur: A week passes and you have not improved If your pain worsens, regardless of its location [id number] [employer]. [address] [place] [address]. All rights reserved. This information is not intended as asubstitute for professional medical care. Always follow your healthcare professional's instructions.Muscle Strain in the ExtremitiesA muscle strain is a stretching and tearing of muscle fibers. This causes pain, especially when youmove that muscle. There may also be some swelling and bruising.Home care Keep the hurt area raised above heart level to reduce pain and swelling. This is especially important during the first 48 hours. Apply an ice pack over the injured area for 15 to 20 minutes every 3 to 6 hours. You should do this for the first 24 to 48 hours. You can make an ice pack by filling a plastic bag that seals at the top with ice cubes and then wrapping it with a thin towel. Be careful not to injure your skin with the ice treatments. Ice should never be applied directly to skin. Continue the use of ice packs for relief of pain and swelling as needed. After 48 hours, apply heat (warm shower or warm bath) for 15 to 20 minutes several times a day, or alternate ice and heat. You may use azyo-ila-cwxfanj pain medicine to control pain, unless another medicine was prescribed. If you have chronic liver or kidney disease or ever had a stomach ulcer or gastrointestinal bleeding, talk with your healthcare provider before using these medicines. For leg strains: If crutches have been recommended, don't put full weight on the hurt leg until you can do so without pain. You can return to sports when you are able to hop and run on the 4 General Instructions [facility] Emergency Department [address] [place] [address] Phone #: ext- [phone] 05/29/2019 13:00 Patient: PIPER LICEA Sex: M : 1970 Age: 48y injured leg without pain.Follow-up careFollow up with your healthcare provider, or as advised.When to seek medical adviceCall your healthcare provider right away if any of these occur: The toes of the injured leg become swollen, cold, blue, numb, or tingly Pain or swelling increases [id number] [employer]. [address] [place] [address]. All rights reserved. This information is not intended as asubstitute for professional medical care. Always follow your healthcare professional's instructions. You have been given the following additional information: Myofascial Pain Syndrome Muscle Strain, Extremity No driving or operating machinery. No strenuous activity. You may walk and bear weight as tolerated.(Electronically signed by Antonia Frazier M.D. 05/30/2019 06:46) Name Value Range Interpretation Code Description Data [place] rce(s) Supporting Document(s) ID Date Data Source [id number] 05/29/2019 01:24:00 PM EST [facility] 1 Clinical Report - Nurses [facility] Emergency Department [address] [place] [address] Phone #: ext- [phone] 05/29/2019 13:00 Patient: PIPER LICEA Sex: M : 1970 Age: 48yTRIAGEHistorian: patient.Triage time: 13:00 05/29/2019. Acuity: LEVEL 4.Chief Complaint: LEFT LOWER EXTREMITY PAIN.Alert. No acute distress.( pt c/o left hamstring cramp for past 3-4 days, some numbness feeling to back of knee. 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 (last night).SEPSIS SCREEN: NEGATIVE. Negative (no infection suspected/documented). --13:05/29/19, R.N.13:00 05/29/19. BP: 120/85. MAP: 96. HR: 63. RR: 16. O2 saturation: 98%. Temp: 98.4 F (oral). Painlevel now: 02/07. --13:05/29/19, August, R.N.Weight: 113.3 kg stated. Height/Length: 70 inches Per Patient. BMI: 35.8. --13:05/29/19August,R.N.MedicationsCeleXA Oral. --13:05/29/19August, R.N. Xanax Oral. --13:05/29/19August, R.N. Depakote Oral. --13:05/29/19August, R.N. Gabapentin Oral. --13:05/29/19August, R.N. Meloxicam Oral. --13:05/29/19August, R.N.AllergiesNo Known Drug Allergy. --13:05/29/19, August, R.N.PROBLEMS:Arthritis.Anxiety Reaction.Depression. --13:05/29/19August, R.N.ADDITIONAL SURGERIES:Heart ablation. --13:05/29/19August, R.N.HistorySOCIAL HX: Never smoker. No alcohol use or drug use. He was offered HIV testing but declined. He 2 Clinical Report - Nurses [facility] Emergency Department [address] [place] [address] Phone #: ext- [phone] 05/29/2019 13:00 [id number] Sex[facility] M : 1970 Age: 48y has not traveled outside the [place] Infectious disease exposure: No infectious disease exposure. Patient is not a known carrier of tuberculosis, hepatitis, HIV, MRSA or VRE. Patient is not a known carrier of CRE. SELF HARM ASSESSMENT: Self harm assessment was performed. The patient answered "no" to the question(s) "Have you recently felt down, depressed, or hopeless?", "Do you have thoughts of harming or killing yourself?", "Do you have a plan for harming or killing yourself?", "Have you recently had thoughts about harming or killing others?", "Do you have any dangerous items in your possession?", "Have you noticed less interest or pleasure in doing things?", "Are you here because you tried to hurt yourself?" and "Have you ever tried to hurt yourself before today?". ABUSE ASSESSMENT: Abuse assessment. yes. The patient had positive responses to the question(s) "Do you feel safe in your home?". No report of abuse. NUTRITIONAL RISK ASSESSMENT: The nutritional risk assessment revealed no deficiencies. FUNCTIONAL ASSESSMENT: Functional assessment: no impairments noted. LEARNING NEEDS ASSESSMENT: The learning needs assessment revealed no barriers. FALL RISK ASSESSMENT: Fall risk assessment completed. No risk factors identified. SKIN INTEGRITY ASSESSMENT: Skin integrity risk assessment completed. No skin integrity risk identified. --13:04 05/29/19 Rhoda Diaz R.N. Interventions To treatment room. --13:04 05/29/19 Rhoda Diaz R.N.PHYSICAL ASSESSMENTAmbulatory to room.GENERAL / NEURO / PSYCH: Oriented X 4. Alert. Appears in pain.EXTREMITIES: Extremity pulses are within normal limits. Neuro- vascular status intact to the extremity.No lower extremity edema. Left thigh: tenderness located in the posterior aspect of upper and mid thigh.( limp noted with ambulation).SKIN: Skin intact. Skin is warm and dry. --13:18 05/29/19 Scot Mena RN.NURSING PROGRESS NOTESReassurance given. Bed placed in lowest position. Brakes of bed on. Patient ready for evaluation- EDphysician notified. --13:04 05/29/19 Joe, August, RWandyN. Patient gowned. --13:05/29/19 JoeAugust, RPao. Extremity elevated. Patient gowned. Reassurance given. Call light placed in reach. Side rails up x 2. Bed placed in lowest position. Brakes of bed on. Patient ready for evaluation- ED physician notified. 3 Clinical Report - Nurses [facility] Emergency Department [address] [place] [address] Phone #: ext- [phone] 05/29/2019 13:00 Patient: PIPER LICEA Sex: M : 1970 Age: 48y --13:19 05/29/19 Scot Mena RN 13:28 05/29/2019 Cyclobenzaprine PO Tablets 10 mg given. Allergies verified and confirmed 5 rights. Information reviewed with patient including reason for taking this medic ation and sedative warning. Verbalizes understanding. --13:28 05/29/19 Scot Mena RN 13:31 05/29/2019 Toradol (Ketorolac Tromethamine) IM 30 mg given. Given in the left gluteus hellen. Allergies verified and confirmed 5 rights. Information reviewed with patient including reason for taking this medication. Verbalizes understanding. --13:31 05/29/19 Scot Mena RN.DISPOSITION / DISCHARGE Condition at departure: improved and stable. Discharge instructions provided and reviewed with the patient. Reviewed medication(s). Prescription(s) given to the patient. Activity restrictions (rest) reviewed. Patient verbalized understanding. Written instructions provided in Wolof. The patient was discharged by the physician. He was discharged home and accompanied by spouse. He left ambulatory and via private vehicle. Spouse driving. --16:16 05/29/19 Scot Mena RN 16:15 05/29/19. BP: 148/89. MAP: 108. HR: 55. RR: 16. O2 saturation: 98%. Pain level now: 5/10. --16:16 05/29/19 Scot Mena RN.Locked/Released at 05/29/2019 16:16 by Scot Mena RN Name Value Range Interpretation Code Description Data Geneva rce(s) Supporting Document(s) ID Date Data Source [id number] 05/29/2019 01:24:00 PM EST [facility] 1 Clinical Report - Physicians/Mid Levels [facility] Emergency Department [address] [place] [address] Phone #: ext- [phone] 05/29/2019 13:00 Patient: PIPER LICEA Sex: M : 1970 Age: 48y Time Seen: 13:01 05/29/2019. Arrived- By private vehicle. Historian- patient and family. Disposition decision: 15:59 05/29/2019.HISTORY OF PRESENT ILLNESS Chief Complaint: LOWER EXTREMITY PAIN and ; ;(cramps). Severity is described as being moderate. The quality is noted to be aching and "pain". This started 3 days ago and is still present (48 year old [facility] crampy pain past 3 days. not getting better. patient has deoression amnd anxioety , on diability.PCP luzmaria gerardo.). (3 days). Symptoms located in the area of the left thigh. Location: left posterior thigh spasm. The patient has not had redness. No swelling, bladder dysfunction, bowel dysfunction, sensory loss or motor loss. No difficulty walking. ( no history of trauma or long distance travel.). Patient notes the possibility of an injury. Occurred at home. Similar symptoms previous ly. Patient has had similar symptoms several times. Recent medical care: The patient was seen recently by a health care provider (has appointment tomorrow.).REVIEW OF SYSTEMSNo cough, difficulty breathing, fever, skin rash or enlarged lymph nodes. No neck pain, back pain,headache, blurred vision or sore throat. No abdominal pain, vomiting, diarrhea, black stools or difficultywith urination. No bloody stools. All other systems reviewed and are negative.PAST HISTORYSee nurses notes. Problems: Bronchitis. Pneumonia. Hypertension. Heart Disease. Arthritis. Anxiety Reaction. Additional Surgeries: CARDIAC ABLASION. Heart ablation. Medications: Meloxicam Oral. 2 Clinical Report - Physicians/Mid Levels [facility] Emergency Department [address] [place] [address] Phone #: ext- [phone] 05/29/2019 13:00 Patient: PIPER LICEA Sex: M : 1970 Age: [age] Gabapentin Oral. Depakote Oral. Xanax Oral. CeleXA Oral. Allergies: No Known Drug Allergy.SOCIAL HISTORYNever smoker. No alcohol use or drug use. No recent travel. Is a local resident. Resides in a house. Helives with spouse.ADDITIONAL NOTESThe nursing notes have been reviewed with agreement regarding the chief complaint, HPI, ROS, PMH andpatient medications and allergies.PHYSICAL EXAMAppearance: Alert. Oriented X3. No acute distress. Anxious. No apparent distress.Eyes: Eyes normal inspection.ENT: Nose normal. Pharynx normal.Neck: Normal inspection. Neck supple.CVS: Normal heart rate and rhythm. Heart sounds normal.Respiratory: No respiratory distress. Painless inspiration. Breath sounds normal.Abdomen: Soft and nontender. No organomegaly.Back: Normal inspection. No tenderness. ROM normal. No CVA tenderness, vertebral tenderness orsoft tissue tenderness. (no spinal tenderness).Skin: Skin intact. Skin warm. Normal skin color.Extremities: Left thigh: moderate tenderness located in the posterior aspect of upper and mid thigh.Neurovascular intact distally. (posterior aspect). No erythema, swelling, laceration, abrasion or ecchymosis.No foreign body or deformity. No lower extremity edema. No signs of infection involving the lowerextremities. No lower extremity edema. No calf tenderness. No tenderness in other extremity areas.Extremities otherwise negative.Gait: No limping gait. He was able to bear weight.Neuro, Vascular and Tendons: No pulse deficit present. Lower extremity capillary refill not prolonged.Neuro: Oriented X 3. No alteration in mental status. No motor deficit. No weakness. No sensorydeficit.LABS, X-RAYS, AND EKGLaboratory Tests: Laboratory tests have been ordered, with results reviewed and considered in themedical decision making process. CBC w Diff: (MARISABEL: 05/29/2019 13:30) ( MsgRcvd 05/29/2019 14:17) Final results Test Result Flag Units (Reference) CBC W/AUTOMATED DIFF COMPLETE BLOOD COUNT WBC 8.3 10/uL (4.2 - 11.0) RBC 5.66 10/uL (4.50 - 6.30) 3 Clinical Report - Physicians/Mid Levels [facility] Emergency Department [address] [place] [address] Phone #: ext- [phone] 05/29/2019 13:00 Patient: PIPER LICEA Sex: M : 1970 Age: 48y HEMOGLOBIN 16.8 H g/dL (14.0 - 16.0) HEMATOCRIT 48.9 % (41.0 - 51.0) MCV 86.4 fL (80.0 - 94.0) MCH 29.7 pg (27.0 - 34.0) MCHC 34.4 g/dL (31.0 - 36.0) RDW 12.9 % (11.5 - 14.8) PLATELETS 233 10/uL (150 - 450) MPV 9.6 fL (7.4 - 10.4) NEUT 54.3 % (37.0 - 80.0) LYMPH 36.1 % (25.0 - 40.0) MONO 8.0 % (3.0 - 8.0) EOS 0.8 % (0.0 - 7.0) BASO 0.4 % (0.0 - 2.0) %IG 0.4 H % (0.0 - 0.0) %NRBC 0.0 % (0.0 - 0.0) #NEUT 4.51 10/uL (2.00 - 6.90) #LYMPH 2.99 10/uL (0.60 - 3.40) #MONO 0.66 10/uL (0.00 - 0.90) #EOS 0.07 10/uL (0.00 - 0.70) #BASO 0.03 10/uL (0.00 - 0.20) #IG 0.03 10/uL (0.00 - 0.10) #NRBC 0.00 10/uL (0.00 - 0.00) MANUAL DIFF NOT INDICATED RBC MORPH NOT INDICATED CMP: (MARISABEL: 05/29/2019 13:30) ( MsgRcvd 05/29/2019 14:14) Final results Test Result Flag Units (Reference) COMPREHENSIVE METABOLIC PANEL COMPREHENSIVE METABOLIC PANEL SODIUM 135 mEq/L (134 - 153) POTASSIUM 4.4 mEq/L (3.6 - 5.0) CHLORIDE 100 mEq/L (98 - 107) CO2 24 MEQ/L (22 - 30) GLUCOSE 102 MG/DL (65 - 110) BUN 19 MG/DL (7 - 21) CREATININE 0.7 MG/DL (0.7 - 1.5) BUN/CREAT 27 (8 - 27) TOTAL PROTEIN 6.6 G/DL (6.3 - 8.2) ALBUMIN 4.5 G/DL (3.9 - 5.0) GLOBULIN 2.1 L GM/DL (2.4 - 3.2) A/G RATIO 2.1 H (0.8 - 2.0) CALCIUM 9.6 MG/DL (8.4 - 10.2) TOTAL BILI 0.7 MG/DL (0.2 - 1.3) ALKALINE PHOS 53 U/L (38 - 126) SGOT/AST 30 U/L (5 - 40) SGPT/ALT 46 U/L (7 - 56) ANION GAP 11.0 mmol/L (8.0 - 16.0) AGE 48 yrs NON-AA GFR >60 mL/min AFR AMER GFR >60 mL/min Male GFR Interprentation 20-49 yrs >60 mL/min Normal 50- 59 yrs >56 mL/min Normal 60-69 yrs >49 mL/min Normal 70-79yrs >42 mL/min Normal 80 and above >35 mL/min Normal Female GFR Interpretation 20-39 yrs >60 mL/min Normal 40-49 yrs >58 mL/min Normal 50-59 yrs >51 mL/min Normal 60-69 yrs >45 mL/min Normal 70-79 yrs >39 mL/min Normal 80 and above >32 mL/min Normal Magnesium: (MARISABEL: 05/29/2019 13:30) ( MsgRcvd 05/29/2019 14:05) Final results Test Result Flag Units (Reference) MAGNESIUM 2.1 MG/DL (1.7 - 2.2).PROGRESS AND PROCEDURES 4 Clinical Report - Physicians/Mid Levels [facility] Emergency Department [address] [place] [address] Phone #: ext- [phone] 05/29/2019 13:00 Patient: PIPER LICEA Sex: M : 1970 Age: 48y Course of Care: 13:31 05/29/19. Patient is stable. explained to patient and family.Appears to be muscle cramps and spasm. clinically no evidence of trauma or spinal tenderness or clinical signs of DVT.most likely muscle cramps. hence ana do labs including magnesium and treat with toradol and cyclobenzaprine. 15:57 05/29/19. Discussed with patient and family , reviewed. labs wnl. advised tonic water, cyclobenzaprine for spasm, heat packs, f/u pcp. increase gabapentin if needed,. Patient/family counseled. Old medical records ordered. Disposition: Discharged home in good and improved condition (15:59 May 29 2019).CLINICAL IMPRESSION Acute left thigh pain. Muscle strain of the left hamstrings. Sprain of the lower extremity.INSTRUCTIONS Apply ice. No driving or operating machinery. No strenuous activity. You may walk and bear weight as tolerated. Warnings: Further evaluation is necessary. SEDATIVE MEDICATION: You were given sedative medication during your visit. Do not drive or operate dangerous [employer] [place]. CONTROLLED SUBSTANCE WARNINGS. GENERAL WARNINGS: Return or contact your physician immediately if your condition worsens or changes unexpectedly, if not improving as expected, or if other problems arise. Prescription Medications: cyclobenzaprine tablet 10 mg tablet Administer 1 tablet three times a day as needed for pain for 5 days -- Dispense 15 tablet. Refills: 0. Substitution permitted. Pharmacy [facility] - [address] [place] [address]. . Follow-up: Follow up with your healthcare provider in three days if not better. Call for an appointment. Reason for referral: evaluation and treatment. Summary of care provided to patient, family and follow-up provider via paper. 5 Clinical Report - Physicians/Mid Levels [facility] Emergency De partment [address] [place] [address] Phone #: ext- [phone] 05/29/2019 13:00 Patient: PIPER LICEA Sex: M : 1970 Age: 48y Understanding of the discharge instructions verbalized by patient and family.(Electronically signed by Antonia Frazier M.D. 05/30/2019 06:46) Name Value Range Interpretation Code Description Data Geneva rce(s) Supporting Document(s) ID Date Data Source [id number] 05/29/2019 02:17:00 PM EST [facility] Name Value Range Interpretation Code Description Data Geneva rce(s) Supporting Document(s) CBC W/AUTOMATED DIFF [facility] COMPLETE BLOOD COUNT Leukocytes [#/volume] in Blood by Automated count 8.3 10^3/uL 4.2 - 1 1.0 [facility] Erythrocytes [#/volume] in Blood by Automated count 5.66 10^6/uL 4. 50 - 6.30 [facility] Hemoglobin [Mass/volume] in Blood 16.8 g/dL 14.0 - 16.0 H [facility] Hematocrit [Volume Fraction] of Blood by Automated count 48.9 % 4 1.0 - 51.0 [facility] Erythrocyte mean corpuscular volume [Entitic volume] by Auto mated count 86.4 fL 80.0 - 94.0 [facility] Erythrocyte mean corpuscular hemoglobin [Entitic mass] by Automated count 29.7 pg 27.0 - 34.0 [facility] Erythrocyte mean corpuscular hemoglobin concentration [Mass/volume] by Automated count 34.4 g/dL 31.0 - 36.0 [facility] Erythrocyte distribution width [Ratio] by Automated count 12.9 % 11.5 - 14.8 [facility] Platelets [#/volume] in Blood by Automated count 233 10^3/uL 150 - 45 0 [facility] Platelet mean volume [Entitic volume] in Blood by Automated count 9.6 fL 7.4 - 10.4 [facility] Neutrophils/100 leukocytes in Blood by Automated count 54.3 % 37. 0 - 80.0 [facility] Lymphocytes/100 leukocytes in Blood by Manual count 36.1 % 25.0 - 40.0 [facility] Monocytes/100 leukocytes in Blood by Automated count 8.0 % 3.0 - 8.0 [facility] Eosinophils/100 leukocytes in Blood by Automated count 0.8 % 0.0 - 7.0 [facility] Basophils/100 leukocytes in Blood by Automated count 0.4 % 0.0 - 2.0 [facility] %IG 0.4 % 0.0 - 0.0 [facility] %[facility] 0.0 % 0.0 - 0.0 [facility] al Neutrophils [#/volume] in Blood by Automated count 4.51 10^3/uL 2.00 - 6.90 [facility] Lymphocytes [#/volume] in Blood by Automated count 2.99 10^3/uL 0.60 - 3.40 [facility] Monocytes [#/volume] in Blood by Automated count 0.66 10^3/uL 0.00 - 0.90 [facility] Eosinophils [#/volume] in Blood by Automated count 0.07 10^3/uL 0.00 - 0.70 [facility] Basophils [#/volume] in Blood by Automated count 0.03 10^3/uL 0.00 - 0.20 [facility] #IG 0.03 10^3/uL 0.00 - 0.10 [facility] H ospital #NRBC 0.00 10^3/uL 0.00 - 0.00 [facility] ospital MANUAL DIFF NOT INDICATED [facility] RBC MORPH NOT INDICATED [facility] spital ID Date Data Source [id number] 05/29/2019 02:14:00 PM EST [facility] Name Value Range Interpretation Code Description Data Geneva rce(s) Supporting Document(s) COMPREHENSIVE METABOLIC PANEL [facility] COMPREHENSIVE METABOLIC PANEL Sodium [Moles/volume] in Serum or Plasma 135 mEq/L 134 - 153 [facility] Potassium [Moles/volume] in Serum or Plasma 4.4 mEq/L 3.6 - 5.0 [facility] Chloride [Moles/volume] in Serum or Plasma 100 mEq/L 98 - 107 [facility] Carbon dioxide, total [Moles/volume] in Serum or Plasma 24 MEQ/L 22 - 30 [facility] Glucose [Mass/volume] in Serum or Plasma 102 MG/DL 65 - 110 [facility] BUN 19 MG/DL 7 - 21 [facility] Creatinine [Mass/volume] in Serum or Plasma 0.7 MG/DL 0.7 - 1.5 [facility] BUN/CREAT 27 8 - 27 [facility] al Protein [Mass/volume] in Serum or Plasma 6.6 G/DL 6.3 - 8.2 [facility] Albumin [Mass/volume] in Serum or Plasma 4.5 G/DL 3.9 - 5.0 [facility] Globulin [Mass/volume] in Serum by calculation 2.1 GM/DL 2.4 - 3.2 L [facility] A/G RATIO 2.1 0.8 - 2.0 [facility] Calcium [Mass/volume] in Serum or Plasma 9.6 MG/DL 8.4 - 10.2 [facility] Bilirubin.total [Mass/volume] in Serum or Plasma 0.7 MG/DL 0.2 - 1.3 [facility] Alkaline phosphatase [Enzymatic activity/volume] in Serum or Plasma 53 U/L 38 - 126 [facility] Aspartate aminotransferase [Enzymatic activity/volume] in Serum or Plasma 30 U/L 5 - 40 [facility] Alanine aminotransferase [Enzymatic activity/volume] in Seru m or Plasma 46 U/L 7 - 56 [facility] Anion gap 3 in Serum or Plasma 11.0 mmol/L 8.0 - 16.0 [facility]GE 48 [facility] GFR >60 mL/min [facility] Hosp ital AFR AMER GFR >60 mL/min [facility] Ho spital Male GFR In terprentation 20-49 yrs >60 mL/min Normal 50-59 yrs >56 mL/min Normal 60-69 yrs >49 mL/min Normal 70-79yrs >42 mL/min Normal 80 and above >35 mL/min Normal Female GFR Interpretation 20-39 yrs >60 mL/min Normal 40-49 yrs >58 mL/min Normal 50-59 yrs >51 mL/min Normal 60-69 yrs >45 mL/min Normal 70-79 yrs >39 mL/min Normal 80 and above >32 mL/min Normal ID Date Data Source [id number] 05/29/2019 02:05:00 PM EST [facility] Name Value Range Interpretation Code Description Data Geneva rce(s) Supporting Document(s) Magnesium [Mass/volume] in Serum or Plasma 2.1 MG/DL 1.7 - 2.2 [facility] Procedure Social History Code Duration Value Status Description Data Source(s ) 05/07/2020 10:59:56 AM EST Former smoker completed Former smoker [facility] Smoking 05/07/2020 10:59:00 AM EST Former smoker completed Former smoker [facility] Smoking 02/05/2020 10:21:00 PM EDT Current every day smoker co mpleted Current every day smoker [facility] Smoking 02/05/2020 10:21:00 PM EDT Current every day smoker co mpleted Current every day smoker [facility] Smoking 02/05/2020 10:21:00 PM EDT Current every day smoker co mpleted Current every day smoker [facility] Smoking 02/05/2020 10:21:00 PM EDT Current every day smoker co mpleted Current every day smoker [facility] 02/05/2020 09:21:10 PM EDT Yes completed Yes [facility] 02/05/2020 09:21:10 PM EDT Yes completed Yes [facility] 02/05/2020 09:21:10 PM EDT Current every day smoker co mpleted Current every day smoker [facility] 02/05/2020 09:21:10 PM EDT Yes completed Yes [facility] 02/05/2020 09:21:10 PM EDT Yes completed Yes [facility] 02/05/2020 09:21:10 PM EDT Current every day smoker co mpleted Current every day smoker [facility] 02/05/2020 09:21:10 PM EDT Yes completed Yes [facility] 02/05/2020 09:21:10 PM EDT Yes completed Yes [facility] 02/05/2020 09:21:10 PM EDT Yes completed Yes [facility] 02/05/2020 09:21:10 PM EDT Yes completed Yes [facility] 02/05/2020 09:21:10 PM EDT Current every day smoker co mpleted Current every day smoker [facility] 02/05/2020 09:21:10 PM EDT Yes completed Yes [facility] 02/05/2020 09:21:10 PM EDT Yes completed Yes [facility] 02/05/2020 09:21:10 PM EDT Current every day smoker co mpleted Current every day smoker [facility] 02/05/2020 09:21:10 PM EDT Yes completed Yes [facility] 02/05/2020 09:21:10 PM EDT Yes completed Yes [facility] 02/05/2020 09:21:10 PM EDT Current every day smoker co mpleted Current every day smoker [facility] 02/05/2020 09:21:10 PM EDT Yes completed Yes [facility] 02/05/2020 09:21:10 PM EDT Yes completed Yes [facility] 02/05/2020 09:21:10 PM EDT Current every day smoker co mpleted Current every day smoker [facility] Smoking 02/05/2020 09:21:00 PM EDT Current every day smoker co mpleted Current every day smoker [facility] Smoking 02/05/2020 09:21:00 PM EDT Current every day smoker co mpleted Current every day smoker [facility] Smoking 11/09/2019 12:00:00 AM EDT Patient has never smoked co mpleted Patient has never smoked [facility] ([facility] 07/12/2019 09:52:02 AM EST Former smoker completed Former smoker [facility] 07/12/2019 09:52:02 AM EST Former smoker completed Former smoker [facility] 07/12/2019 09:52:02 AM EST Former smoker completed Former smoker [facility] 07/12/2019 09:52:02 AM EST Former smoker completed Former smoker [facility] Smoking 07/12/2019 09:52:00 AM EST Former smoker completed Former smoker [facility] Smoking 07/12/2019 09:52:00 AM EST Former smoker completed Former smoker [facility] Smoking 07/12/2019 08:52:00 AM EST Former smoker completed Former smoker [facility] Smoking 07/12/2019 08:52:00 AM EST Former smoker completed Former smoker [facility] Vital Signs ID Date Data Source UNK Name Value Range Interpretation Code Description Data Source(s) Body surface area Derived from formula 2.30 m2 2.30 m2 [facility] ([facility]) Body mass index (BMI) [Ratio] 36.2 kg/m2 36.2 k g/m2 [facility] ([facility]) Body height 70 [in_i] 70 [in_i] [facility] ([facility]) 5'10" Body weight 114.421 kg 114.421 kg [facility] ([facility]) Body weight 252.25 [lb_av] 252.25 [lb_av] [facility] ([facility]) Oxygen saturation in Arterial blood by Pulse oximetry 98 % 98 % [facility] ([facility]) Respiratory rate 18 /min 18 /min [facility] ( [facility]) Body temperature 99.3 [degF] 99.3 [degF] [facility] ([facility]) Oral Heart rate 62 /min 62 /min [facility] ([facility]) Diastolic blood pressure--sitting 86 mm[Hg] 86 mm[Hg] [facility] ([facility]) Systolic blood pressure--sitting 140 mm[Hg] 140 mm[Hg] [facility] ([facility]) Body surface area 2.32 m2 2.32 m2 [facility] ([facility]) Body surface area Derived from formula 2.32 m2 2.32 m2 [facility] ([facility]) Body mass index (BMI) [Ratio] 34.9 kg/m2 34.9 k g/m2 [facility] ([facility]) Body height 71 [in_i] 71 [in_i] [facility] ([facility]) Body weight 113.400 kg 113.400 kg [facility] ([facility]) Body weight 250.00 [lb_av] 250.00 [lb_av] [facility] ([facility]) Respiratory rate 17 /min 17 /min [facility] ( [facility]) Body temperature 97.3 [degF] 97.3 [degF] [facility] ([facility]) Heart rate 70 /min 70 /min [facility] ([facility]) Diastolic blood pressure 92 mm[Hg] 92 mm[Hg] [facility] ([facility]) Systolic blood pressure 141 mm[Hg] 141 mm[Hg] [facility] ([facility]) Body mass index (BMI) [Ratio] 44.3 kg/m2 44.3 k g/m2 [facility] ([facility]) Diastolic blood pressure 88 mm[Hg] 88 mm[Hg] [facility] ([facility]) Systolic blood pressure 137 mm[Hg] 137 mm[Hg] [facility] ([facility]) Respiratory rate 18 /min 18 /min [facility] ( [facility]) Heart rate 65 /min 65 /min [facility] Body height 70 [in_i] 70 [in_i] [facility] ([facility] 5'10" Body weight 309.00 [lb_av] 309.00 [lb_av] [facility] ([facility]) ID Date Data Source [id number] 02/14/2020 11:42:12 AM EDT [facility] Hospital Name Value Range Interpretation Code Description Data Source(s) WEIGHT RECORDED 249.90 pounds 249.90 pounds [place] [facility] Height 70 Inches 070 Inches [facility] ID Date Data Source [id number] 02/09/2020 01:23:31 PM EDT [facility] Hospital Name Value Range Interpretation Code Description Data Source(s) WEIGHT RECORDED 250.00 pounds 250.00 pounds [facility] Height 70 Inches 070 Inches [facility]
[2020-06-28] MEDS ORDERED: DIVA500T94 (11:39)
[2020-06-28] MEDS ORDERED: OLAN20TA14 (11:39)
[2020-06-28] MEDS ORDERED: PRAZ1CAP (11:39)
[2020-06-28] MEDS ORDERED: MELO7.5T35 (11:39)
[2020-06-28] MEDS ORDERED: CLON0.5T2 (11:39)
[2020-06-28] MEDS ORDERED: SERT50TA29 (11:39)
[2020-06-28] MEDS ORDERED: SERT-138 (11:39)
[2020-06-28 11:54] VITALS: BP 160/84
--- NOTE | 2020-06-28 13:19 | REP ---
INDICATION: dizziness. COMPARISON: Comparison chest x-ray July 20, 2013. TECHNIQUE: Two views.. FINDINGS: The lungs are well inflated and free of infiltrate. The pleural angles are sharp. The heart size is normal. Pulmonary vasculature is not increased. No significant bony abnormality is seen. IMPRESSION: No active disease.. <Electronically signed by Eric Mendoza > 06/28/20 [id number]
--- OUTSIDE RECORDS SUMMARY | 2020-06-28 13:29 | CCD ---
Author Author [facility] Organization [facility] Address Unknown Phone Unavailable Care Team Providers Care Senior Online Marketing Manager Name Role Phone Riddhi [phone] MD Naveed LOUIS Unavailable Unavailable Riddhi [phone] MD Naveed LOUIS Unavailable Unavailable Riddhi [phone] MD Naveed LOUIS Unavailable Unavailable CATARINO NAJERA Unavailable Unavailable MEDENT_[id number], [id number] Unavailable Unavailable Skip Rutherford MD Unavailable Unavailable [place] Falanga, A Johanna UTILITY BILL COLLECTOR Unavailable Unavailable Amador Falanga, A Johanna UTILITY BILL COLLECTOR Unavailable Unavailable [place] Falanga, A Johanna UTILITY BILL COLLECTOR Unavailable Unavailable [place] Falanga, A Johanna UTILITY BILL COLLECTOR Unavailable Unavailable [place] Falanga, A Johanna UTILITY BILL COLLECTOR Unavailable Unavailable Amador Falanga, A Johanna UTILITY BILL COLLECTOR Unavailable Unavailable [place] Falanga, A Johanna UTILITY BILL COLLECTOR Unavailable Unavailable [place] Falanga, A Johanna UTILITY BILL COLLECTOR Unavailable Unavailable Amador Falanga, A Johanna UTILITY BILL COLLECTOR Unavailable Unavailable [place] Falanga, A Johanna UTILITY BILL COLLECTOR Unavailable Unavailable [place] Falanga, A Johanna UTILITY BILL COLLECTOR Unavailable Unavailable [place] Falanga, A Johanna UTILITY BILL COLLECTOR Unavailable Unavailable Amador Falanga, A Johanna UTILITY BILL COLLECTOR Unavailable Unavailable [place] Falanga, A Johanna UTILITY BILL COLLECTOR Unavailable Unavailable Amador Falanga, A Johanna UTILITY BILL COLLECTOR Unavailable Unavailable Amador Falanga, A Johanna UTILITY BILL COLLECTOR Unavailable Unavailable [place] Falanga, A Johanna UTILITY BILL COLLECTOR Unavailable Unavailable Amador Falanga, A Johanna UTILITY BILL COLLECTOR Unavailable Unavailable [place] Falanga, A Johanna UTILITY BILL COLLECTOR Unavailable Unavailable Amador Falanga, A Johanna UTILITY BILL COLLECTOR Unavailable Unavailable [place] Falanga, A Johanna UTILITY BILL COLLECTOR Unavailable Unavailable [place] Falanga, A Johanna UTILITY BILL COLLECTOR Unavailable Unavailable Amador Falanga, A Johanna UTILITY BILL COLLECTOR Unavailable Unavailable Amador Falanga, A Johanna UTILITY BILL COLLECTOR Unavailable Unavailable [place] Falanga, A Johanna UTILITY BILL COLLECTOR Unavailable Unavailable Amador Falanga, A Johanna UTILITY BILL COLLECTOR Unavailable Unavailable Amador Falanga, A Johanna UTILITY BILL COLLECTOR Unavailable Unavailable [place] Falanga, A Johanna UTILITY BILL COLLECTOR Unavailable Unavailable [place] Falanga, A Johanna UTILITY BILL COLLECTOR Unavailable Unavailable [place] Falanga, A Johanna UTILITY BILL COLLECTOR Unavailable Unavailable ANTONIA FRAZIER MD Unavailable Unavailable ANTONIA FRAZIER MD Unavailable Unavailable ANTONIA FRAZIER MD Unavailable Unavailable ANTONIA FRAZIER MD Unavailable Unavailable ANTONIA FRAZIER MD Unavailable Unavailable ANTONIA FRAZIER MD Unavailable Unavailable ANTONIA FRAZIER MD Unavailable Unavailable AMERNATH, ANTONIA LOUIS Unavailable Unavailable AMERNATH, ANTONIA LOUIS Unavailable Unavailable AMERNATH, ANTONIA LOUIS Unavailable Unavailable AMERNATH, ANTONIA LOUIS Unavailable Unavailable AMERNATGregorio, ANTONIA LOUIS Unavailable Unavailable Dylan, Jorge Luis Biggs MD [...] Biggs MD Unavailable Unavailable Yonathan, A Kelli MOMD TEACHER Unavailable Unavailable Yonathan, A Kelli MOMD TEACHER Unavailable Unavailable Yonathan, A Kelli MOMD TEACHER Unavailable Unavailable Yonathan, A Kelli MOMD TEACHER Unavailable Unavailable Yonathan, A Kelli MOMD TEACHER Unavailable Unavailable Yonathan, A Kelli MOMD TEACHER Unavailable Unavailable Yonathan, A Kelli MOMD TEACHER Unavailable Unavailable Yonathan, A Kelli MOMD TEACHER Unavailable Unavailable Yonathan, A Kelli MOMD TEACHER Unavailable Unavailable Yonathan, A Kelli MOMD TEACHER Unavailable Unavailable Yonathan, A Kelli MOMD TEACHER Unavailable Unavailable Yonathan, A Kelli MOMD TEACHER Unavailable Unavailable Yonathan, A Kelli MOMD TEACHER Unavailable Unavailable Yonathan, A Kelli MOMD TEACHER Unavailable Unavailable Yonathan, A Kelli MOMD TEACHER Unavailable Unavailable Yonathan, A Kelli MOMD TEACHER Unavailable Unavailable Yonathan, A Kelli MOMD TEACHER Unavailable Unavailable Yonathan, A Kelli MOMD TEACHER Unavailable Unavailable Yonathan, A Kelli MOMD TEACHER Unavailable Unavailable Yonathan, A Kelli MOMD TEACHER Unavailable Unavailable Yonathan, A Kelli MOMD TEACHER Unavailable Unavailable Yonathan, A Kelli MOMD TEACHER Unavailable Unavailable Yonathan, A Kelli MOMD TEACHER Unavailable Unavailable Yonathan, A Kelli MOMD TEACHER Unavailable Unavailable Yonathan, A Kelli MOMD TEACHER Unavailable Unavailable Yonathan, A Kelli MOMD TEACHER Unavailable Unavailable Yonathan, A Kelli MOMD TEACHER Unavailable Unavailable Yonathan, A Kelli MOMD TEACHER Unavailable Unavailable Yonathan, A Kelli MOMD TEACHER Unavailable Unavailable Yonathan, A Kelli MOMD TEACHER Unavailable Unavailable Yonathan, A Kelli MOMD TEACHER Unavailable Unavailable Yonathan, A Kelli MOMD TEACHER Unavailable Unavailable Yonathan, A Kelli MOMD TEACHER Unavailable Unavailable Yonathan, A Kelli MOMD TEACHER Unavailable Unavailable Yonathan, A Kelli MOMD TEACHER Unavailable Unavailable Yonathan, A Kelli MOMD TEACHER Unavailable Unavailable Yonathan, A Kelli MOMD TEACHER Unavailable Unavailable Yonathan, A Kelli MOMD TEACHER Unavailable Unavailable Rosales ., Velvet DO Unavailable Unavailable Rosales ., Velvet DO Unavailable Unavailable Yonathan, A Kelli MOMD TEACHER Unavailable Unavailable Yonathan, A Kelli MOMD TEACHER Unavailable Unavailable Yonathan, A Kelli MOMD TEACHER Unavailable Unavailable Yonathan, A Kelli MOMD TEACHER Unavailable Unavailable Yonathan, A Kelli MOMD TEACHER Unavailable Unavailable Yonathan, A Kelli MOMD TEACHER Unavailable Unavailable Yonathan, A Kelli MOMD TEACHER Unavailable Unavailable Yonathan, A Kelli MOMD TEACHER Unavailable Unavailable Yonathan, A Kelli MOMD TEACHER Unavailable Unavailable Yonathan, A Kelli MOMD TEACHER Unavailable Unavailable Yonathan, A Kelli MOMD TEACHER Unavailable Unavailable Yonathan, A Kelli MOMD TEACHER Unavailable Unavailable Yonathan, A Kelli MOMD TEACHER Unavailable Unavailable Yonathan, A Kelli MOMD TEACHER Unavailable Unavailable Yonathan, A Kelli MOMD TEACHER Unavailable Unavailable Yonathan, A Kelli MOMD TEACHER Unavailable Unavailable Yonathan, A Kelli MOMD TEACHER Unavailable Unavailable Yonathan, A Kelli MOMD TEACHER Unavailable Unavailable Yonathan, A Kelli MOMD TEACHER Unavailable Unavailable Yonathan, A Kelli MOMD TEACHER Unavailable Unavailable Yonathan, A Kelli MOMD TEACHER Unavailable Unavailable Yonathan, A Kelli MOMD TEACHER Unavailable Unavailable Yonathan, A Kelli MOMD TEACHER Unavailable Unavailable Yonathan, A Kelli MOMD TEACHER Unavailable Unavailable Yonathan, A Kelli MOMD TEACHER Unavailable Unavailable Yonathan, A Kelli MOMD TEACHER Unavailable Unavailable Yonathan, A Kelli MOMD TEACHER Unavailable Unavailable Yonathan, A Kelli MOMD TEACHER Unavailable Unavailable Yonathan, A Kelli MOMD TEACHER Unavailable Unavailable Yonathan, A Kelli MOMD TEACHER Unavailable Unavailable Yonathan, A Kelli MOMD TEACHER Unavailable Unavailable Yonathan, A Kelli MOMD TEACHER Unavailable Unavailable Yonathan, A Kelli MOMD TEACHER Unavailable Unavailable Yonathan, A Kelli MOMD TEACHER Unavailable Unavailable Yonathan, A Kelli MOMD TEACHER Unavailable Unavailable Yonathan, A Kelli MOMD TEACHER Unavailable Unavailable Yonathan, A Kelli MOMD TEACHER Unavailable Unavailable Yonathan, A Kelli MOMD TEACHER Unavailable Unavailable Alcon Abarca MD Unavailable Unavailable Althouse, Mirian MOMD TEACHER Unavailable Unavailable DORRER, RPA P EB PA [...] Unavailable Stefano Jennings MD Unavailable Unavailable Stefano Jenninsg MD Unavailable Unavailable Stefano Jennings MD Unavailable [...] Luis Richardson MD Unavailable Unavailable Dylan, F Kalyan MD [...] is protected by Article 27-F of the [facility] Public Health law. If you continue you may have access to information: Regarding HIV / AIDS; Provided by facilities licensed or operated by the [facility] Office of Mental Health; or Provided by the [facility] Office for People With Developmental Disabilities. If such information is present, then the following [facility] mandated warning applies: This information has been [...] law may result in a fine or group home sentence or both. A general authorization for the release of medical or other information is NOT sufficient authorization for further disc losure. Allergies and Adverse Reactions Type Description Substance Reaction Status Data Source(s ) No Known Drug Allergies No Known Drug Allergies [facility] Drug allergy No Known Allergies No Known Allergies [facility] rag weed rag weed builds up eye drainage, post nasal d rip [facility] dust mites dust mites builds up drainage in eyes , post na makenna drip [facility] Drug allergy No Known Drug Allergies No Known Drug Allergies [facility] Drug Allergy Drug Allergy NKDA [facility] ([facility]) Encounters Encounter Providers Location Date Indications Data Source(s ) Outpatient Attender: Kelli Mcmanus NP 06/21/2020 05:56:00 PM [facility] Outpatient Attender: Kelli Mcmanus NPReferrer: Kelli castro NP 06/21/2020 09:36:00 AM [facility] Outpatient Attender: JEANETTE MAGANANTConsultant: Kelli Araiza P 06/13/2020 08:02:00 AM EST - 06/13/2020 08:02:[address] [facility] Outpatient Attender: JEANETTE DURANTConsultant: Kelli Araiza P 06/06/2020 01:55:00 PM EST - 06/06/2020 01:55:[address] [facility] Outpatient Attender: Kelli Mcmanus NPReferrer: Kelli castro MOMD TEACHER 06/04/2020 01:14:00 PM EST - 06/04/2020 01:47:00 PM EST [facility] Outpatient Attender: JEANETTE DURANTConsultant: Kelli Araiza P 05/28/2020 08:54:00 AM EST - 05/28/2020 08:54:[address] [facility] Outpatient Attender: JEANETTE DURANTConsultant: Kelli Araiza P 05/20/2020 11:55:00 AM EST - 05/20/2020 11:55:[address] [facility] Outpatient Attender: JEANETTE DURANTConsultant: Kelli Araiza P 05/08/2020 07:54:00 AM EST - 05/08/2020 07:54:[address] [facility] Outpatient Attender: Kelli Mcmanus NPReferrer: Kelli castro MOMD TEACHER 05/07/2020 10:55:00 AM EST - 05/07/2020 11:28:00 AM [facility] Outpatient Attender: ARELI Yu tender: JEANETTE DURANTConsultant: Kelli Mcmanus NP 05/06/2020 10:34:00 AM EST - 05/06/2020 10:34:[address] [facility] Outpatient Attender: [id number] [id number] 05/06/2020 10:00:00 AM EST [facility] ([facility] Outpatient Attender: JEANETTE DURANTConsultant: Kelli Araiza P 05/03/2020 08:55:00 AM EST - 05/03/2020 08:55:[address] [facility] Outpatient Attender: Kelli Mcmanus NPReferrer: Kelli castro MOMD TEACHER 04/24/2020 11:39:00 AM EST - 04/24/2020 11:50:00 AM [facility] Outpatient Attender: CATARINO DANIAConsultant: Kelli castro MOMD TEACHER 04/18/2020 12:36:00 PM EST - 04/18/2020 12:36:00 PM EST [facility] Outpatient Attender: Kelli Mcmanus MOMD TEACHER 04/04/2020 10:35:00 AM EST R79.89 [facility] R79.89 Outpatient Attender: Kelli Mcmanus NPReferrer: Kelli castro MOMD TEACHER 04/04/2020 10:04:00 AM EST - 04/04/2020 10:33:00 AM EST [facility] Outpatient Attender: Kelli Mcmanus NPReferrer: Kelli castro MOMD TEACHER 03/13/2020 09:54:00 AM EDT - 03/13/2020 10:40:00 AM EDT [facility] Outpatient Attender: Eb MARTEL 03/04/2020 04: 45:00 PM EDT Neoplasm of uncertain behavior of skin [facility] Neoplasm of uncertain behavior of skin Outpatient Attender: PRIMITIVO MARTEL TECH M-LAB.NONPAR 03/04/2020 02:51:00 PM EDT - 03/06/2020 12:00:00 AM EDT [facility] NONPAR Preadmit Attender: [id number] Naveed Hannon MD 020 12:00:00 AM EDT K42.9/42440 [facility] K42.9/75984 Outpatient Attender: Elton Jennings MD 02/12/2020 02:20:[address] [facility] 941 Eval Inpatient Attender: Alcon Abarca MDAttender: Velvet Gallardo [facility] .Admitter: Alcon Abarca MD 02/12/2020 12:00:00 AM EDT - 02/16/2020 11:37:[address] [facility] 941 Eval Patient discharged. Outpatient Attender: Mirian Araiza PAdmitter: Alcon Abarca MDConsultant: Alcon Abarca MD 02/12/2020 12:00:[address] [facility] 941 Eval Outpatient Attender: Mirian [...] [facility] Eval Outpatient 02/07/2020 06:55:00 PM EDT [facility] Outpatient Attender: Johanna melissa FNPAttender: PHILLIP HODGSON MDReferrer: Kalyan Richardson MDConsultant: Kelli Mcmanus NP 02/07/2020 06:08:00 PM EDT - 02/08/2020 12:00:00 PM EDT [facility] Patient discharged. Outpatient Attender: Kalyan Richardson MDConsultant: Kelli valladares NP 02/06/2020 02:30:00 PM EDT - 02/06/2020 06:15:00 PM EDT [facility] Patient discharged. Outpatient Attender: Kalyan Richardson MD [facility] 02/06/2020 1 1:30:00 AM EDT [facility] ([facility]) Outpatient Attender: Kalyan Richardson MDConsultant: Kelli valladares NP 02/06/2020 10:51:00 AM EDT - 02/06/2020 10:51:00 AM EDT [facility] Emergency Attender: Skip Rutherford MD 11/2019 08:55:00 PM EDT - 02/06/2020 01:37:00 AM EDT ABD PAIN, BACK [facility], BACK PAIN Patient discharged. Outpatient Attender: [id number] Naveed Hannon MD 03:19:00 PM EDT PRE OP/K42.9 [facility] PRE OP/K42.9 Outpatient Attender: [id number] Naveed Hannon MDReferrer: Veda Mcmanus MOMD TEACHER 02/01/2020 02:31:00 PM EDT - 02/01/2020 03:13:00 PM EDT [facility] Outpatient Attender: Kelli Mcmanus NPReferrer: Kelli castro MOMD TEACHER 12/20/2019 10:19:00 AM EDT [facility] Out[facility] Attender: Kelli Mcmanus NP 11/16/2019 07: 30:00 PM EDT Snoring, Excessive Daytime Sleepiness, [place], HTN [facility] Snoring, Excessive Daytime Sleepiness, A npea, HTN Outpatient Attender: CHANCE WELCH MD Main Office 11/09/2019 01:15:00 PM EDT [facility] ([facility] Outpatient Attender: Kelli Mcmanus NPReferrer: Kelli castro MOMD TEACHER 10/19/2019 09:56:00 AM EDT - 10/19/2019 10:31:00 AM EDT [facility] Outpatient Attender: Kelli Mcmanus NP 07/31/2019 11:05:00 AM EST Z00.00,I10 [facility] Z00.00,I10 Outpatient Attender: Kelli Mcmanus NPReferrer: Kelli castro NP 07/12/2019 09:48:00 AM EST - 07/12/2019 10:15:00 AM EST [facility] Emergency Attender: ANTONIA FRAZIER MDConsultant: Kelli Mcmanus NP 05/29/2019 01:24:00 PM EST - 05/29/2019 04:17:[address] [facility] Patient discharged. Immunizations Vaccine Date Status Description Data Source(s) IIV3. This is one of two codes replacing CVX 15, which is being retired. 03/13/2020 12:00:00 AM EDT completed influenza vaccine, inactivated [facility] IIV3. This is one of two codes replacing CVX 15, which is being retired. 03/13/2020 12:00:00 AM EDT completed influenza vaccine, inactivated [facility] IIV3. This is one of two codes replacing CVX 15, which is being retired. 03/13/2020 12:00:00 AM EDT completed influenza vaccine, inactivated [facility] IIV3. This is one of two codes replacing CVX 15, which is being retired. 03/13/2020 12:00:00 AM EDT completed influenza vaccine, inactivated [facility] IIV3. This is one of two codes replacing CVX 15, which is being retired. 03/13/2020 12:00:00 AM EDT completed influenza vaccine, inactivated [facility] Medications Medication Brand Name Start Date Product Form Dose Route Admi nistrative Instructions Pharmacy Instructions Status Indications Reaction Description Data Source(s) Amoxicillin 875 MG / Clavulanate 125 MG Oral Tablet Am oxicillin-Pot Clavulanate Amoxicillin-Pot Clavulanate 06/21/2020 09:36:59 AM EST 1 TAB active [facility] Testosterone Cypionate 06/04/2020 02:26:38 PM EST 200 MG active [facility] Clonazepam 0.5 MG Oral Tablet Clonazepam 06/04/2020 02:26:33 PM EST 0.[address] [facility] olanzapine 10 MG Oral Tablet Olanzapine Olanzapine 06/04/2020 01: 20:44 PM EST 20 MG active [facility] olanzapine 10 MG Oral Tablet Olanzapine Olanzapine 06/04/2020 01: 20:44 PM EST 20 MG active [facility] Clonazepam 0.5 MG Oral Tablet Clonazepam 05/07/2020 01:11:14 PM EST 0.[address] [facility] Clonazepam 0.5 MG Oral Tablet Clonazepam 05/07/2020 01:11:14 PM EST 0.[address] [facility] Testosterone Cypionate 05/07/2020 01:04:59 PM EST 200 MG completed [facility] Testosterone Cypionate 05/07/2020 01:04:59 PM EST 200 MG active [facility] Sertraline 100 MG Oral Tablet Sertraline 05/07/2020 11:19:59 AM EST [address] [facility] Sertraline 100 MG Oral Tablet Sertraline 05/07/2020 11:19:59 AM EST [address] [facility] Sertraline 100 MG Oral Tablet Sertraline 05/07/2020 11:19:59 AM EST [address] [facility] Sertraline 50 MG Oral Tablet Sertraline 05/07/2020 11:19:08 AM EST 50 MG active [facility] Sertraline 50 MG Oral Tablet Sertraline 05/07/2020 11:19:08 AM EST 50 MG active [facility] Sertraline 50 MG Oral Tablet Sertraline 05/07/2020 11:19:08 AM EST 50 MG active [facility] olanzapine 10 MG Oral Tablet Olanzapine Olanzapine 05/07/2020 11: 17:30 AM EST 10 MG active [facility] olanzapine 10 MG Oral Tablet Olanzapine Olanzapine 05/07/2020 11: 17:30 AM EST [address] [facility] olanzapine 10 MG Oral Tablet Olanzapine Olanzapine 05/07/2020 11: 17:30 AM EST [address] [facility] Testosterone Cypionate 04/11/2020 09:46:30 AM EST 200 MG completed [facility] Testosterone Cypionate 04/11/2020 09:46:30 AM EST 200 MG completed [facility] Testosterone Cypionate 04/11/2020 09:46:30 AM EST 200 MG active [facility] Testosterone Cypionate 04/11/2020 09:46:30 AM EST 200 MG active [facility] Syringe (Disposable) (Bd Luer-Yanira Tip Control Syring) 10 mL syringe 04/11/2020 09:46:20 AM EST 1 EACH active [facility] Syringe (Disposable) (Bd Luer-Yanira Tip Control Syring) 10 mL syringe 04/11/2020 09:46:20 AM EST 1 EACH active [facility] Syringe (Disposable) (Bd Luer-Yanira Tip Control Syring) 10 mL syringe 04/11/2020 09:46:20 AM EST 1 EACH completed [facility] Syringe (Disposable) (Bd Luer-Yanira Tip Control Syring) 10 mL syringe 04/11/2020 09:46:20 AM EST 1 EACH active [facility] Clonazepam 0.5 MG Oral Tablet Clonazepam 04/11/2020 09:33:55 AM EST 0.[address] [facility] Clonazepam 0.5 MG Oral Tablet Clonazepam 04/11/2020 09:33:55 AM EST 0.[address] [facility] Clonazepam 0.5 MG Oral Tablet Clonazepam 04/11/2020 09:33:55 AM EST 0.[address] [facility] Clonazepam 0.5 MG Oral Tablet Clonazepam 04/11/2020 09:33:55 AM EST 0.[address] [facility] Testosterone Cypionate 04/04/2020 10:27:13 AM EST 200 MG active [facility] Testosterone Cypionate 04/04/2020 10:27:13 AM EST 200 MG completed [facility] Testosterone Cypionate 04/04/2020 10:27:13 AM EST 200 MG completed [facility] Testosterone Cypionate 04/04/2020 10:27:13 AM EST 200 MG completed [facility] Testosterone Cypionate 04/04/2020 10:27:13 AM EST 200 MG completed [facility] Sertraline 100 MG Oral Tablet Sertraline 04/04/2020 10:24:47 AM EST [address] [facility] Sertraline 100 MG Oral Tablet Sertraline 04/04/2020 10:24:47 AM EST [address] [facility] Sertraline 100 MG Oral Tablet Sertraline 04/04/2020 10:24:47 AM EST [address] [facility] Sertraline 100 MG Oral Tablet Sertraline 04/04/2020 10:24:47 AM EST [address] [facility] Sertraline 100 MG Oral Tablet Sertraline 04/04/2020 10:24:47 AM EST [address] [facility] Alprazolam 0.5 MG Oral Tablet Alprazolam 03/18/2020 03:36:09 PM EDT 0.[address] [facility] Alprazolam 0.5 MG Oral Tablet Alprazolam 03/18/2020 03:36:09 PM EDT 0.[address] [facility] Alprazolam 0.5 MG Oral Tablet Alprazolam 03/18/2020 03:36:09 PM EDT 0.[address] [facility] Alprazolam 0.5 MG Oral Tablet Alprazolam 03/18/2020 03:36:09 PM EDT 0.[address] [facility] Alprazolam 0.5 MG Oral Tablet Alprazolam 03/18/2020 03:36:09 PM EDT 0.[address] [facility] Alprazolam 0.5 MG Oral Tablet Alprazolam 03/18/2020 03:24:41 PM EDT 0.[address] [facility] Alprazolam 0.5 MG Oral Tablet Alprazolam 03/18/2020 03:24:41 PM EDT 0.[address] [facility] Alprazolam 0.5 MG Oral Tablet Alprazolam 03/18/2020 03:24:41 PM EDT 0.[address] [facility] Alprazolam 0.5 MG Oral Tablet Alprazolam 03/18/2020 03:24:41 PM EDT 0.[address] [facility] Alprazolam 0.5 MG Oral Tablet Alprazolam 03/18/2020 03:24:41 PM EDT 0.[address] [facility] Prazosin 1 MG Oral Capsule Prazosin 03/18/2020 03:23:46 PM EDT 1 MG active [facility] Prazosin 1 MG Oral Capsule Prazosin 03/18/2020 03:23:46 PM EDT 1 MG active [facility] Prazosin 1 MG Oral Capsule Prazosin 03/18/2020 03:23:46 PM EDT 1 MG active [facility] Prazosin 1 MG Oral Capsule Prazosin 03/18/2020 03:23:46 PM EDT 1 MG active [facility] Prazosin 1 MG Oral Capsule Prazosin 03/18/2020 03:23:46 PM EDT 1 MG active [facility] Sertraline 50 MG Oral Tablet Sertraline 03/13/2020 10:50:28 AM EDT 50 MG completed [facility] Sertraline 50 MG Oral Tablet Sertraline 03/13/2020 10:50:28 AM EDT 50 MG completed [facility] Sertraline 50 MG Oral Tablet Sertraline 03/13/2020 10:50:28 AM EDT 50 MG completed [facility] Sertraline 50 MG Oral Tablet Sertraline 03/13/2020 10:50:28 AM EDT 50 MG completed [facility] Sertraline 50 MG Oral Tablet Sertraline 03/13/2020 10:50:28 AM EDT 50 MG completed [facility] Prazosin 1 MG Oral Capsule Prazosin 03/13/2020 10:50:09 AM EDT 1 MG completed [facility] Prazosin 1 MG Oral Capsule Prazosin 03/13/2020 10:50:09 AM EDT 1 MG completed [facility] Prazosin 1 MG Oral Capsule Prazosin 03/13/2020 10:50:09 AM EDT 1 MG completed [facility] Prazosin 1 MG Oral Capsule Prazosin 03/13/2020 10:50:09 AM EDT 1 MG completed [facility] Prazosin 1 MG Oral Capsule Prazosin 03/13/2020 10:50:09 AM EDT 1 MG completed [facility] olanzapine 10 MG Oral Tablet Olanzapine Olanzapine 03/13/2020 10: 49:50 AM EDT [address] [facility] olanzapine 10 MG Oral Tablet Olanzapine Olanzapine 03/13/2020 10: 49:50 AM EDT 20 MG active [facility] olanzapine 10 MG Oral Tablet Olanzapine Olanzapine 03/13/2020 10: 49:50 AM EDT [address] [facility] olanzapine 10 MG Oral Tablet Olanzapine Olanzapine 03/13/2020 10: 49:50 AM EDT 20 MG active [facility] olanzapine 10 MG Oral Tablet Olanzapine Olanzapine 03/13/2020 10: 49:50 AM EDT [address] [facility] Divalproex Sodium 500 MG Delayed Release Oral Tablet Divalpr oex 03/13/2020 10:49:22 AM EDT 500 MG active [facility] Divalproex Sodium 500 MG Delayed Release Oral Tablet Divalpr oex 03/13/2020 10:49:22 AM EDT 500 MG active [facility] Divalproex Sodium 500 MG Delayed Release Oral Tablet Divalpr oex 03/13/2020 10:49:22 AM EDT 500 MG active [facility] Divalproex Sodium 500 MG Delayed Release Oral Tablet Divalpr oex 03/13/2020 10:49:22 AM EDT 500 MG active [facility] Divalproex Sodium 500 MG Delayed Release Oral Tablet Divalpr oex 03/13/2020 10:49:22 AM EDT 500 MG active [facility] Divalproex Sodium 500 MG Delayed Release Oral Tablet Divalpr oex 03/13/2020 10:06:36 AM EDT 500 MG completed [facility] Divalproex Sodium 500 MG Delayed Release Oral Tablet Divalpr oex 03/13/2020 10:06:36 AM EDT 500 MG completed [facility] Divalproex Sodium 500 MG Delayed Release Oral Tablet Divalpr oex 03/13/2020 10:06:36 AM EDT 500 MG completed [facility] Divalproex Sodium 500 MG Delayed Release Oral Tablet Divalpr oex 03/13/2020 10:06:36 AM EDT 500 MG completed [facility] Divalproex Sodium 500 MG Delayed Release Oral Tablet Divalpr oex 03/13/2020 10:06:36 AM EDT 500 MG completed [facility] Divalproex Sodium 500 MG Delayed Release Oral Tablet Divalpr oex 03/13/2020 10:06:36 AM EDT 500 MG completed [facility] Prazosin 1 MG Oral Capsule Prazosin 03/13/2020 10:06:14 AM EDT completed [facility] Prazosin 1 MG Oral Capsule Prazosin 03/13/2020 10:06:14 AM EDT completed [facility] Prazosin 1 MG Oral Capsule Prazosin 03/13/2020 10:06:14 AM EDT completed [facility] Prazosin 1 MG Oral Capsule Prazosin 03/13/2020 10:06:14 AM EDT completed [facility] Prazosin 1 MG Oral Capsule Prazosin 03/13/2020 10:06:14 AM EDT completed [facility] Prazosin 1 MG Oral Capsule Prazosin 03/13/2020 10:06:14 AM EDT completed [facility] olanzapine 10 MG Oral Tablet Olanzapine Olanzapine 03/13/2020 10: 06:[address] [facility] olanzapine 10 MG Oral Tablet Olanzapine Olanzapine 03/13/2020 10: 06:[address] [facility] olanzapine 10 MG Oral Tablet Olanzapine Olanzapine 03/13/2020 10: 06:[address] [facility] olanzapine 10 MG Oral Tablet Olanzapine Olanzapine 03/13/2020 10: 06:[address] [facility] olanzapine 10 MG Oral Tablet Olanzapine Olanzapine 03/13/2020 10: 06:[address] [facility] olanzapine 10 MG Oral Tablet Olanzapine Olanzapine 03/13/2020 10: 06:[address] [facility] Sertraline 50 MG Oral Tablet Sertraline 03/13/2020 10:05:33 AM EDT completed [facility] Sertraline 50 MG Oral Tablet Sertraline 03/13/2020 10:05:33 AM EDT completed [facility] Sertraline 50 MG Oral Tablet Sertraline 03/13/2020 10:05:33 AM EDT completed [facility] Sertraline 50 MG Oral Tablet Sertraline 03/13/2020 10:05:33 AM EDT completed [facility] Sertraline 50 MG Oral Tablet Sertraline 03/13/2020 10:05:33 AM EDT completed [facility] Sertraline 50 MG Oral Tablet Sertraline 03/13/2020 10:05:33 AM EDT completed [facility] Afluria Qd 2019-(3yr up)(PF) (flu vac [id number] 36mos up(P F)) 03/13/2020 09:54:44 AM ED[facility] [id number] 36mos up(P F)) 03/13/2020 09:54:44 AM EDT 60 [facility]CG [facility] (flu vac [id number] 36mos up(P F)) 03/13/2020 09:54:44 AM EDT 60 MCG completed [facility] Afluria Qd 2019-(3yr up)(PF) (flu vac [id number] 36mos up(P F)) 03/13/2020 09:54:44 AM EDT 60 MCG [facility] (flu vac [id number] 36mos up(P F)) 03/13/2020 09:54:44 AM EDT 60 [facility]CG [facility] (flu vac [id number] 36mos up(P F)) 03/13/2020 09:54:44 AM EDT 60 MCG completed [facility] Testosterone Cypionate 02/27/2020 04:07:34 PM EDT 300 MG completed [facility] Testosterone Cypionate 02/27/2020 04:07:34 PM EDT 300 MG completed [facility] Testosterone Cypionate 02/27/2020 04:07:34 PM EDT 300 MG completed [facility] Testosterone Cypionate 02/27/2020 04:07:34 PM EDT 300 MG active [facility] Testosterone Cypionate 02/27/2020 04:07:34 PM EDT 300 MG completed [facility] Testosterone Cypionate 02/27/2020 04:07:34 PM EDT 300 MG completed [facility] Alprazolam 0.5 MG Oral Tablet Alprazolam 02/21/2020 08:22:10 AM EDT 0.[address] [facility] Alprazolam 0.5 MG Oral Tablet Alprazolam 02/21/2020 08:22:10 AM EDT 0.[address] [facility] Alprazolam 0.5 MG Oral Tablet Alprazolam 02/21/2020 08:22:10 AM EDT 0.[address] [facility] Alprazolam 0.5 MG Oral Tablet Alprazolam 02/21/2020 08:22:10 AM EDT 0.[address] [facility] Alprazolam 0.5 MG Oral Tablet Alprazolam 02/21/2020 08:22:10 AM EDT 0.[address] [facility] Alprazolam 0.5 MG Oral Tablet Alprazolam 02/21/2020 08:22:10 AM EDT 0.[address] [facility] Syringe (Disposable) (Bd Luer-Yanira Tip Control Syring) 10 mL syringe 02/06/2020 10:06:04 AM EDT 1 EACH completed [facility] Syringe (Disposable) (Bd Luer-Yanira Tip Control Syring) 10 mL syringe 02/06/2020 10:06:04 AM EDT 1 EACH active [facility] Syringe (Disposable) (Bd Luer-Yanira Tip Control Syring) 10 mL syringe 02/06/2020 10:06:04 AM EDT 1 EACH completed [facility] Syringe (Disposable) (Bd Luer-Yanira Tip Control Syring) 10 mL syringe 02/06/2020 10:06:04 AM EDT 1 EACH active [facility] Syringe (Disposable) (Bd Luer-Yanira Tip Control Syring) 10 mL syringe 02/06/2020 10:06:04 AM EDT 1 EACH completed [facility] Syringe (Disposable) (Bd Luer-Yanira Tip Control Syring) 10 mL syringe 02/06/2020 10:06:04 AM EDT 1 EACH completed [facility] Citalopram 20 MG Oral Tablet Citalopram 02/06/2020 10:05:46 AM EDT 40 MG completed [facility] Citalopram 20 MG Oral Tablet Citalopram 02/06/2020 10:05:46 AM EDT 40 MG completed [facility] Citalopram 20 MG Oral Tablet Citalopram 02/06/2020 10:05:46 AM EDT 40 MG completed [facility] Citalopram 20 MG Oral Tablet Citalopram 02/06/2020 10:05:46 AM EDT 40 MG completed [facility] Citalopram 20 MG Oral Tablet Citalopram 02/06/2020 10:05:46 AM EDT 40 MG completed [facility] Citalopram 20 MG Oral Tablet Citalopram 02/06/2020 10:05:46 AM EDT 40 MG completed [facility] Testosterone Cypionate 02/06/2020 10:04:59 AM EDT 300 MG completed [facility] Testosterone Cypionate 02/06/2020 10:04:59 AM EDT 300 MG completed [facility] Testosterone Cypionate 02/06/2020 10:04:59 AM EDT 300 MG completed [facility] Testosterone Cypionate 02/06/2020 10:04:59 AM EDT 300 MG completed [facility] Testosterone Cypionate 02/06/2020 10:04:59 AM EDT 300 MG completed [facility] Testosterone Cypionate 02/06/2020 10:04:59 AM EDT 300 MG completed [facility] Divalproex Sodium 500 MG Delayed Release Oral Tablet Divalpr oex 01/25/2020 09:51:24 AM EDT 500 MG completed [facility] Divalproex Sodium 500 MG Delayed Release Oral Tablet Divalpr oex 01/25/2020 09:51:24 AM EDT 500 MG completed [facility] Divalproex Sodium 500 MG Delayed Release Oral Tablet Divalpr oex 01/25/2020 09:51:24 AM EDT 500 MG active [facility] Divalproex Sodium 500 MG Delayed Release Oral Tablet Divalpr oex 01/25/2020 09:51:24 AM EDT 500 MG active [facility] Divalproex Sodium 500 MG Delayed Release Oral Tablet Divalpr oex 01/25/2020 09:51:24 AM EDT 500 MG completed [facility] Divalproex Sodium 500 MG Delayed Release Oral Tablet Divalpr oex 01/25/2020 09:51:24 AM EDT 500 MG completed [facility] Divalproex Sodium 500 MG Delayed Release Oral Tablet Divalpr oex 01/25/2020 09:51:24 AM EDT 500 MG completed [facility] Divalproex Sodium 500 MG Delayed Release Oral Tablet Divalpr oex 01/25/2020 09:51:24 AM EDT 500 MG completed [facility] Divalproex Sodium 500 MG Delayed Release Oral Tablet Divalpr oex 01/25/2020 09:48:58 AM EDT 500 MG completed [facility] Divalproex Sodium 500 MG Delayed Release Oral Tablet Divalpr oex 01/25/2020 09:48:58 AM EDT 500 MG completed [facility] Divalproex Sodium 500 MG Delayed Release Oral Tablet Divalpr oex 01/25/2020 09:48:58 AM EDT 500 MG completed [facility] Divalproex Sodium 500 MG Delayed Release Oral Tablet Divalpr oex 01/25/2020 09:48:58 AM EDT 500 MG completed [facility] Divalproex Sodium 500 MG Delayed Release Oral Tablet Divalpr oex 01/25/2020 09:48:58 AM EDT 500 MG completed [facility] Divalproex Sodium 500 MG Delayed Release Oral Tablet Divalpr oex 01/25/2020 09:48:58 AM EDT 500 MG completed [facility] Divalproex Sodium 500 MG Delayed Release Oral Tablet Divalpr oex 01/25/2020 09:48:58 AM EDT 500 MG completed [facility] Divalproex Sodium 500 MG Delayed Release Oral Tablet Divalpr oex 01/25/2020 09:48:58 AM EDT 500 MG completed [facility] Testosterone Cypionate 01/24/2020 07:27:26 AM EDT 300 MG completed [facility] Testosterone Cypionate 01/24/2020 07:27:26 AM EDT 300 MG active [facility] Testosterone Cypionate 01/24/2020 07:27:26 AM EDT 300 MG completed [facility] Testosterone Cypionate 01/24/2020 07:27:26 AM EDT 300 MG completed [facility] Testosterone Cypionate 01/24/2020 07:27:26 AM EDT 300 MG completed [facility] Testosterone Cypionate 01/24/2020 07:27:26 AM EDT 300 MG completed [facility] Testosterone Cypionate 01/24/2020 07:27:26 AM EDT 300 MG completed [facility] Testosterone Cypionate 01/24/2020 07:27:26 AM EDT 300 MG completed [facility] Syringe (Disposable) (Bd Luer-Yanira Tip Control Syring) 10 mL syringe 01/24/2020 07:27:18 AM EDT 1 EACH completed [facility] Syringe (Disposable) (Bd Luer-Yanira Tip Control Syring) 10 mL syringe 01/24/2020 07:27:18 AM EDT 1 EACH completed [facility] Syringe (Disposable) (Bd Luer-Yanira Tip Control Syring) 10 mL syringe 01/24/2020 07:27:18 AM EDT 1 EACH completed [facility] Syringe (Disposable) (Bd Luer-Yanira Tip Control Syring) 10 mL syringe 01/24/2020 07:27:18 AM EDT 1 EACH completed [facility] Syringe (Disposable) (Bd Luer-Yanira Tip Control Syring) 10 mL syringe 01/24/2020 07:27:18 AM EDT 1 EACH completed [facility] Syringe (Disposable) (Bd Luer-Yanira Tip Control Syring) 10 mL syringe 01/24/2020 07:27:18 AM EDT 1 EACH active [facility] Syringe (Disposable) (Bd Luer-Yanira Tip Control Syring) 10 mL syringe 01/24/2020 07:27:18 AM EDT 1 EACH active [facility] Syringe (Disposable) (Bd Luer-Yanira Tip Control Syring) 10 mL syringe 01/24/2020 07:27:18 AM EDT 1 EACH completed [facility] Alprazolam 0.5 MG Oral Tablet Alprazolam 01/23/2020 04:11:06 PM EDT 0.[address] [facility] Alprazolam 0.5 MG Oral Tablet Alprazolam 01/23/2020 04:11:06 PM EDT 0.[address] [facility] Alprazolam 0.5 MG Oral Tablet Alprazolam 01/23/2020 04:11:06 PM EDT 0.[address] [facility] Alprazolam 0.5 MG Oral Tablet Alprazolam 01/23/2020 04:11:06 PM EDT 0.[address] [facility] Alprazolam 0.5 MG Oral Tablet Alprazolam 01/23/2020 04:11:06 PM EDT 0.[address] [facility] Alprazolam 0.5 MG Oral Tablet Alprazolam 01/23/2020 04:11:06 PM EDT 0.[address] [facility] Alprazolam 0.5 MG Oral Tablet Alprazolam 01/23/2020 04:11:06 PM EDT 0.[address] [facility] Alprazolam 0.5 MG Oral Tablet Alprazolam 01/23/2020 04:11:06 PM EDT 0.[address] [facility] Lisinopril 40 MG Oral Tablet Lisinopril 01/22/2020 08:50:17 AM EDT 40 MG active [facility] Lisinopril 40 MG Oral Tablet Lisinopril 01/22/2020 08:50:17 AM EDT 40 MG active [facility] Lisinopril 40 MG Oral Tablet Lisinopril 01/22/2020 08:50:17 AM EDT 40 MG active [facility] Lisinopril 40 MG Oral Tablet Lisinopril 01/22/2020 08:50:17 AM EDT 40 MG active [facility] Lisinopril 40 MG Oral Tablet Lisinopril 01/22/2020 08:50:17 AM EDT 40 MG active [facility] Lisinopril 40 MG Oral Tablet Lisinopril 01/22/2020 08:50:17 AM EDT 40 MG active [facility] Lisinopril 40 MG Oral Tablet Lisinopril 01/22/2020 08:50:17 AM EDT 40 MG active [facility] Lisinopril 40 MG Oral Tablet Lisinopril 01/22/2020 08:50:17 AM EDT 40 MG active [facility] Citalopram 20 MG Oral Tablet Citalopram 01/22/2020 08:50:13 AM EDT 40 MG active [facility] Citalopram 20 MG Oral Tablet Citalopram 01/22/2020 08:50:13 AM EDT 40 MG completed [facility] Citalopram 20 MG Oral Tablet Citalopram 01/22/2020 08:50:13 AM EDT 40 MG completed [facility] Citalopram 20 MG Oral Tablet Citalopram 01/22/2020 08:50:13 AM EDT 40 MG completed [facility] Citalopram 20 MG Oral Tablet Citalopram 01/22/2020 08:50:13 AM EDT 40 MG completed [facility] Citalopram 20 MG Oral Tablet Citalopram 01/22/2020 08:50:13 AM EDT 40 MG active [facility] Citalopram 20 MG Oral Tablet Citalopram 01/22/2020 08:50:13 AM EDT 40 MG completed [facility] Citalopram 20 MG Oral Tablet Citalopram 01/22/2020 08:50:13 AM EDT 40 MG completed [facility] Alprazolam 0.5 MG Oral Tablet Alprazolam 12/29/2019 07:41:20 AM EDT 0.[address] [facility] Alprazolam 0.5 MG Oral Tablet Alprazolam 12/29/2019 07:41:20 AM EDT 0.[address] [facility] Alprazolam 0.5 MG Oral Tablet Alprazolam 12/29/2019 07:41:20 AM EDT 0.[address] [facility] Alprazolam 0.5 MG Oral Tablet Alprazolam 12/29/2019 07:41:20 AM EDT 0.[address] [facility] Alprazolam 0.5 MG Oral Tablet Alprazolam 12/29/2019 07:41:20 AM EDT 0.[address] [facility] Alprazolam 0.5 MG Oral Tablet Alprazolam 12/29/2019 07:41:20 AM EDT 0.[address] [facility] Alprazolam 0.5 MG Oral Tablet Alprazolam 12/29/2019 07:41:20 AM EDT 0.[address] [facility] Alprazolam 0.5 MG Oral Tablet Alprazolam 12/29/2019 07:41:20 AM EDT 0.[address] [facility] Fluticasone Propionate (Flonase Allergy Relief) 50 mcg/actuation spray,suspension 12/20/2019 10:26:51 AM EDT 2 SPRAY active [facility] Fluticasone Propionate (Flonase Allergy Relief) 50 mcg/actuation spray,suspension 12/20/2019 10:26:51 AM EDT 2 SPRAY completed [facility] Fluticasone Propionate (Flonase Allergy Relief) 50 mcg/actuation spray,suspension 12/20/2019 10:26:51 AM EDT 2 SPRAY completed [facility] Fluticasone Propionate (Flonase Allergy Relief) 50 mcg/actuation spray,suspension 12/20/2019 10:26:51 AM EDT 2 SPRAY active [facility] Fluticasone Propionate (Flonase Allergy Relief) 50 mcg/actuation spray,suspension 12/20/2019 10:26:51 AM EDT 2 SPRAY completed [facility] Fluticasone Propionate (Flonase Allergy Relief) 50 mcg/actuation spray,suspension 12/20/2019 10:26:51 AM EDT 2 SPRAY completed [facility] Fluticasone Propionate (Flonase Allergy Relief) 50 mcg/actuation spray,suspension 12/20/2019 10:26:51 AM EDT 2 SPRAY completed [facility] Fluticasone Propionate (Flonase Allergy Relief) 50 mcg/actuation spray,suspension 12/20/2019 10:26:51 AM EDT 2 SPRAY completed [facility] Fluticasone Propionate (Flonase Allergy Relief) 50 mcg/actuation spray,suspension 12/20/2019 10:26:51 AM EDT 2 SPRAY completed [facility] Syringe (Disposable) (Bd Luer-Yanira Tip Control Syring) 10 mL syringe 11/29/2019 08:46:58 AM EDT 1 EACH completed [facility] Syringe (Disposable) (Bd Luer-Yanira Tip Control Syring) 10 mL syringe 11/29/2019 08:46:58 AM EDT 1 EACH completed [facility] Syringe (Disposable) (Bd Luer-Yanira Tip Control Syring) 10 mL syringe 11/29/2019 08:46:58 AM EDT 1 EACH completed [facility] Syringe (Disposable) (Bd Luer-Yanira Tip Control Syring) 10 mL syringe 11/29/2019 08:46:58 AM EDT 1 EACH completed [facility] Syringe (Disposable) (Bd Luer-Yanira Tip Control Syring) 10 mL syringe 11/29/2019 08:46:58 AM EDT 1 EACH completed [facility] Syringe (Disposable) (Bd Luer-Yanira Tip Control Syring) 10 mL syringe 11/29/2019 08:46:58 AM EDT 1 EACH completed [facility] Syringe (Disposable) (Bd Luer-Yanira Tip Control Syring) 10 mL syringe 11/29/2019 08:46:58 AM EDT 1 EACH active [facility] Syringe (Disposable) (Bd Luer-Yanira Tip Control Syring) 10 mL syringe 11/29/2019 08:46:58 AM EDT 1 EACH completed [facility] Syringe (Disposable) (Bd Luer-Yanira Tip Control Syring) 10 mL syringe 11/29/2019 08:46:58 AM EDT 1 EACH [facility] meloxicam 7.5 MG Oral Tablet Meloxicam Meloxicam 11/29/2019 08:4 6:52 AM EDT 7.5 MG active [facility] meloxicam 7.5 MG Oral Tablet Meloxicam Meloxicam 11/29/2019 08:4 6:52 AM EDT 7.5 MG active [facility] meloxicam 7.5 MG Oral Tablet Meloxicam Meloxicam 11/29/2019 08:4 6:52 AM EDT 7.5 MG active [facility] meloxicam 7.5 MG Oral Tablet Meloxicam Meloxicam 11/29/2019 08:4 6:52 AM EDT 7.5 MG active [facility] meloxicam 7.5 MG Oral Tablet Meloxicam Meloxicam 11/29/2019 08:4 6:52 AM EDT 7.5 MG active [facility] meloxicam 7.5 MG Oral Tablet Meloxicam Meloxicam 11/29/2019 08:4 6:52 AM EDT 7.5 MG active [facility] meloxicam 7.5 MG Oral Tablet Meloxicam Meloxicam 11/29/2019 08:4 6:52 AM EDT 7.5 MG active [facility] meloxicam 7.5 MG Oral Tablet Meloxicam Meloxicam 11/29/2019 08:4 6:52 AM EDT 7.5 MG active [facility] meloxicam 7.5 MG Oral Tablet Meloxicam Meloxicam 11/29/2019 08:4 6:52 AM EDT 7.5 MG active [facility] Alprazolam 0.5 MG Oral Tablet Alprazolam 11/29/2019 08:45:38 AM EDT 0.[address] [facility] Alprazolam 0.5 MG Oral Tablet Alprazolam 11/29/2019 08:45:38 AM EDT 0.[address] [facility] Alprazolam 0.5 MG Oral Tablet Alprazolam 11/29/2019 08:45:38 AM EDT 0.[address] [facility] Alprazolam 0.5 MG Oral Tablet Alprazolam 11/29/2019 08:45:38 AM EDT 0.[address] [facility] Alprazolam 0.5 MG Oral Tablet Alprazolam 11/29/2019 08:45:38 AM EDT 0.[address] [facility] Alprazolam 0.5 MG Oral Tablet Alprazolam 11/29/2019 08:45:38 AM EDT 0.[address] [facility] Alprazolam 0.5 MG Oral Tablet Alprazolam 11/29/2019 08:45:38 AM EDT 0.[address] [facility] Alprazolam 0.5 MG Oral Tablet Alprazolam 11/29/2019 08:45:38 AM EDT 0.[address] [facility] Alprazolam 0.5 MG Oral Tablet Alprazolam 11/29/2019 08:45:38 AM EDT 0.[address] [facility] Testosterone Cypionate 11/29/2019 08:45:23 AM EDT 300 MG active [facility] Testosterone Cypionate 11/29/2019 08:45:23 AM EDT 300 MG completed [facility] Testosterone Cypionate 11/29/2019 08:45:23 AM EDT 300 MG completed [facility] Testosterone Cypionate 11/29/2019 08:45:23 AM EDT 300 MG completed [facility] Testosterone Cypionate 11/29/2019 08:45:23 AM EDT 300 MG completed [facility] Testosterone Cypionate 11/29/2019 08:45:23 AM EDT 300 MG completed [facility] Testosterone Cypionate 11/29/2019 08:45:23 AM EDT 300 MG completed [facility] Testosterone Cypionate 11/29/2019 08:45:23 AM EDT 300 MG completed [facility] Testosterone Cypionate 11/29/2019 08:45:23 AM EDT 300 MG completed [facility] Testosterone Cypionate 11/29/2019 08:34:48 AM EDT 300 MG completed [facility] Testosterone Cypionate 11/29/2019 08:34:48 AM EDT 300 MG completed [facility] Testosterone Cypionate 11/29/2019 08:34:48 AM EDT 300 MG completed [facility] Testosterone Cypionate 11/29/2019 08:34:48 AM EDT 300 MG completed [facility] Testosterone Cypionate 11/29/2019 08:34:48 AM EDT 300 MG completed [facility] Testosterone Cypionate 11/29/2019 08:34:48 AM EDT 300 MG completed [facility] Testosterone Cypionate 11/29/2019 08:34:48 AM EDT 300 MG completed [facility] Testosterone Cypionate 11/29/2019 08:34:48 AM EDT 300 MG completed [facility] Testosterone Cypionate 11/29/2019 08:34:48 AM EDT 300 MG completed [facility] Alprazolam 0.5 MG Oral Tablet Alprazolam 11/29/2019 08:34:44 AM EDT 0.[address] [facility] Alprazolam 0.5 MG Oral Tablet Alprazolam 11/29/2019 08:34:44 AM EDT 0.[address] [facility] Alprazolam 0.5 MG Oral Tablet Alprazolam 11/29/2019 08:34:44 AM EDT 0.[address] [facility] Alprazolam 0.5 MG Oral Tablet Alprazolam 11/29/2019 08:34:44 AM EDT 0.[address] [facility] Alprazolam 0.5 MG Oral Tablet Alprazolam 11/29/2019 08:34:44 AM EDT 0.[address] [facility] Alprazolam 0.5 MG Oral Tablet Alprazolam 11/29/2019 08:34:44 AM EDT 0.[address] [facility] Alprazolam 0.5 MG Oral Tablet Alprazolam 11/29/2019 08:34:44 AM EDT 0.[address] [facility] Alprazolam 0.5 MG Oral Tablet Alprazolam 11/29/2019 08:34:44 AM EDT 0.[address] [facility] Alprazolam 0.5 MG Oral Tablet Alprazolam 11/29/2019 08:34:44 AM EDT 0.[address] [facility] Syringe (Disposable) (Bd Luer-Yanira Tip Control Syring) 10 mL syringe 11/29/2019 08:34:39 AM EDT 1 EACH completed [facility] Syringe (Disposable) (Bd Luer-Yanira Tip Control Syring) 10 mL syringe 11/29/2019 08:34:39 AM EDT 1 EACH completed [facility] Syringe (Disposable) (Bd Luer-Yanira Tip Control Syring) 10 mL syringe 11/29/2019 08:34:39 AM EDT 1 EACH completed [facility] Syringe (Disposable) (Bd Luer-Yanira Tip Control Syring) 10 mL syringe 11/29/2019 08:34:39 AM EDT 1 EACH completed [facility] Syringe (Disposable) (Bd Luer-Yanira Tip Control Syring) 10 mL syringe 11/29/2019 08:34:39 AM EDT 1 EACH completed [facility] Syringe (Disposable) (Bd Luer-Yanira Tip Control Syring) 10 mL syringe 11/29/2019 08:34:39 AM EDT 1 EACH completed [facility] Syringe (Disposable) (Bd Luer-Yanira Tip Control Syring) 10 mL syringe 11/29/2019 08:34:39 AM EDT 1 EACH completed [facility] Syringe (Disposable) (Bd Luer-Yanira Tip Control Syring) 10 mL syringe 11/29/2019 08:34:39 AM EDT 1 EACH completed [facility] Syringe (Disposable) (Bd Luer-Yanira Tip Control Syring) 10 mL syringe 11/29/2019 08:34:39 AM EDT 1 EACH completed [facility] meloxicam 7.5 MG Oral Tablet Meloxicam Meloxicam 11/29/2019 08:1 6:51 AM EDT 7.[address] [facility] meloxicam 7.5 MG Oral Tablet Meloxicam Meloxicam 11/29/2019 08:1 6:51 AM EDT 7.[address] [facility] meloxicam 7.5 MG Oral Tablet Meloxicam Meloxicam 11/29/2019 08:1 6:51 AM EDT 7.[address] [facility] meloxicam 7.5 MG Oral Tablet Meloxicam Meloxicam 11/29/2019 08:1 6:51 AM EDT 7.[address] [facility] meloxicam 7.5 MG Oral Tablet Meloxicam Meloxicam 11/29/2019 08:1 6:51 AM EDT 7.[address] [facility] meloxicam 7.5 MG Oral Tablet Meloxicam Meloxicam 11/29/2019 08:1 6:51 AM EDT 7.[address] [facility] meloxicam 7.5 MG Oral Tablet Meloxicam Meloxicam 11/29/2019 08:1 6:51 AM EDT 7.[address] [facility] meloxicam 7.5 MG Oral Tablet Meloxicam Meloxicam 11/29/2019 08:1 6:51 AM EDT 7.[address] [facility] meloxicam 7.5 MG Oral Tablet Meloxicam Meloxicam 11/29/2019 08:1 6:51 AM EDT 7.[address] [facility] Citalopram 20 MG Oral Tablet Citalopram 11/13/2019 03:47:54 PM EDT 40 MG active [facility] Citalopram 20 MG Oral Tablet Citalopram 11/13/2019 03:47:54 PM EDT 40 MG completed [facility] Citalopram 20 MG Oral Tablet Citalopram 11/13/2019 03:47:54 PM EDT 40 MG completed [facility] Citalopram 20 MG Oral Tablet Citalopram 11/13/2019 03:47:54 PM EDT 40 MG completed [facility] Citalopram 20 MG Oral Tablet Citalopram 11/13/2019 03:47:54 PM EDT 40 MG completed [facility] Citalopram 20 MG Oral Tablet Citalopram 11/13/2019 03:47:54 PM EDT 40 MG completed [facility] Citalopram 20 MG Oral Tablet Citalopram 11/13/2019 03:47:54 PM EDT 40 MG completed [facility] Citalopram 20 MG Oral Tablet Citalopram 11/13/2019 03:47:54 PM EDT 40 MG completed [facility] Citalopram 20 MG Oral Tablet Citalopram 11/13/2019 03:47:54 PM EDT 40 MG completed [facility] gabapentin 400 MG Oral Capsule Gabapentin Gabapentin 2019 03:46:39 PM EDT 400 MG completed [facility] Divalproex Sodium 250 MG Delayed Release Oral Tablet Divalpr oex 11/13/2019 03:46:07 PM EDT 250 MG completed [facility] Divalproex Sodium 250 MG Delayed Release Oral Tablet Divalpr oex 11/13/2019 03:46:07 PM EDT 250 MG completed [facility] Divalproex Sodium 250 MG Delayed Release Oral Tablet Divalpr oex 11/13/2019 03:46:07 PM EDT 250 MG completed [facility] Divalproex Sodium 250 MG Delayed Release Oral Tablet Divalpr oex 11/13/2019 03:46:07 PM EDT 250 MG completed [facility] Divalproex Sodium 250 MG Delayed Release Oral Tablet Divalpr oex 11/13/2019 03:46:07 PM EDT 250 MG completed [facility] Divalproex Sodium 250 MG Delayed Release Oral Tablet Divalpr oex 11/13/2019 03:46:07 PM EDT 250 MG completed [facility] Divalproex Sodium 250 MG Delayed Release Oral Tablet Divalpr oex 11/13/2019 03:46:07 PM EDT 250 MG completed [facility] Divalproex Sodium 250 MG Delayed Release Oral Tablet Divalpr oex 11/13/2019 03:46:07 PM EDT 250 MG completed [facility] Divalproex Sodium 250 MG Delayed Release Oral Tablet Divalpr oex 11/13/2019 03:46:07 PM EDT 250 MG completed [facility] Citalopram 20 MG Oral Tablet Citalopram 11/13/2019 03:45:33 PM EDT 40 MG completed [facility] Citalopram 20 MG Oral Tablet Citalopram 11/13/2019 03:45:33 PM EDT 40 MG completed [facility] Citalopram 20 MG Oral Tablet Citalopram 11/13/2019 03:45:33 PM EDT 40 MG completed [facility] Citalopram 20 MG Oral Tablet Citalopram 11/13/2019 03:45:33 PM EDT 40 MG completed [facility] Citalopram 20 MG Oral Tablet Citalopram 11/13/2019 03:45:33 PM EDT 40 MG completed [facility] Citalopram 20 MG Oral Tablet Citalopram 11/13/2019 03:45:33 PM EDT 40 MG completed [facility] Citalopram 20 MG Oral Tablet Citalopram 11/13/2019 03:45:33 PM EDT 40 MG completed [facility] Citalopram 20 MG Oral Tablet Citalopram 11/13/2019 03:45:33 PM EDT 40 MG completed [facility] Citalopram 20 MG Oral Tablet Citalopram 11/13/2019 03:45:33 PM EDT 40 MG completed [facility] Azelastine HCL (Nasal) Azelastine HCL (Nasal) 11/09/2019 12:00:00 AM E DT active [facility] Fluticasone Propionate Nasal [place] Fluticasone Propionate Na makenna [place] 11/09/2019 12:00:00 AM EDT active [facility] ([facility]) Testosterone Cypionate 10/19/2019 12:24:56 PM EDT 300 MG completed [facility] Testosterone Cypionate 10/19/2019 12:24:56 PM EDT 300 MG completed [facility] Testosterone Cypionate 10/19/2019 12:24:56 PM EDT 300 MG completed [facility] Testosterone Cypionate 10/19/2019 12:24:56 PM EDT 300 MG completed [facility] Testosterone Cypionate 10/19/2019 12:24:56 PM EDT 300 MG completed [facility] Testosterone Cypionate 10/19/2019 12:24:56 PM EDT 300 MG completed [facility] Testosterone Cypionate 10/19/2019 12:24:56 PM EDT 300 MG completed [facility] Testosterone Cypionate 10/19/2019 12:24:56 PM EDT 300 MG completed [facility] Testosterone Cypionate 10/19/2019 12:24:56 PM EDT 300 MG completed [facility] Syringe (Disposable) (Bd Luer-Yanira Tip Control Syring) 10 mL syringe 10/19/2019 11:10:00 AM EDT 1 EACH completed [facility] Syringe (Disposable) (Bd Luer-Yanira Tip Control Syring) 10 mL syringe 10/19/2019 11:10:00 AM EDT 1 EACH completed [facility] Syringe (Disposable) (Bd Luer-Yanira Tip Control Syring) 10 mL syringe 10/19/2019 11:10:00 AM EDT 1 EACH completed [facility] Syringe (Disposable) (Bd Luer-Yanira Tip Control Syring) 10 mL syringe 10/19/2019 11:10:00 AM EDT 1 EACH completed [facility] Syringe (Disposable) (Bd Luer-Yanira Tip Control Syring) 10 mL syringe 10/19/2019 11:10:00 AM EDT 1 EACH completed [facility] Syringe (Disposable) (Bd Luer-Yanira Tip Control Syring) 10 mL syringe 10/19/2019 11:10:00 AM EDT 1 EACH completed [facility] Syringe (Disposable) (Bd Luer-Yanira Tip Control Syring) 10 mL syringe 10/19/2019 11:10:00 AM EDT 1 EACH completed [facility] Syringe (Disposable) (Bd Luer-Yanira Tip Control Syring) 10 mL syringe 10/19/2019 11:10:00 AM EDT 1 EACH completed [facility] Syringe (Disposable) (Bd Luer-Yanira Tip Control Syring) 10 mL syringe 10/19/2019 11:10:00 AM EDT 1 EACH completed [facility] Trazodone Hydrochloride 50 MG Oral Tablet Trazodone 2019 10:02:22 AM EDT 50 MG completed [facility] Trazodone Hydrochloride 50 MG Oral Tablet Trazodone 2019 10:02:22 AM EDT 50 MG completed [facility] Trazodone Hydrochloride 50 MG Oral Tablet Trazodone 2019 10:02:22 AM EDT 50 MG completed [facility] Trazodone Hydrochloride 50 MG Oral Tablet Trazodone 2019 10:02:22 AM EDT 50 MG completed [facility] Trazodone Hydrochloride 50 MG Oral Tablet Trazodone 2019 10:02:22 AM EDT 50 MG completed [facility] Trazodone Hydrochloride 50 MG Oral Tablet Trazodone 2019 10:02:22 AM EDT 50 MG completed [facility] Trazodone Hydrochloride 50 MG Oral Tablet Trazodone 2019 10:02:22 AM EDT 50 MG completed [facility] Trazodone Hydrochloride 50 MG Oral Tablet Trazodone 2019 10:02:22 AM EDT 50 MG completed [facility] Trazodone Hydrochloride 50 MG Oral Tablet Trazodone 2019 10:02:22 AM EDT 50 MG completed [facility] Trazodone Hydrochloride 50 MG Oral Tablet Trazodone 2019 10:02:22 AM EDT 50 MG completed [facility] Testosterone Cypionate 08/21/2019 09:55:23 AM EDT 300 MG completed [facility] Testosterone Cypionate 08/21/2019 09:55:23 AM EDT 300 MG completed [facility] Testosterone Cypionate 08/21/2019 09:55:23 AM EDT 300 MG active [facility] Testosterone Cypionate 08/21/2019 09:55:23 AM EDT 300 MG completed [facility] Testosterone Cypionate 08/21/2019 09:55:23 AM EDT 300 MG completed [facility] Testosterone Cypionate 08/21/2019 09:55:23 AM EDT 300 MG completed [facility] Testosterone Cypionate 08/21/2019 09:55:23 AM EDT 300 MG completed [facility] Testosterone Cypionate 08/21/2019 09:55:23 AM EDT 300 MG completed [facility] Testosterone Cypionate 08/21/2019 09:55:23 AM EDT 300 MG completed [facility] Testosterone Cypionate 08/21/2019 09:55:23 AM EDT 300 MG completed [facility] Loratadine 10 MG Oral Tablet Loratadine 07/12/2019 10:16:12 AM EST 10 MG active [facility] Loratadine 10 MG Oral Tablet Loratadine (Allergy Relief (Loratadine)) 10 mg tablet Loratadine (Allergy Relief (Loratadine)) 10 mg tablet 07/12/2019 10:16:12 AM EST 10 MG active [facility] Loratadine 10 MG Oral Tablet Loratadine (Allergy Relief (Loratadine)) 10 mg tablet Loratadine (Allergy Relief (Loratadine)) 10 mg tablet 07/12/2019 10:16:12 AM EST 10 MG completed [facility] Loratadine 10 MG Oral Tablet Loratadine (Allergy Relief (Loratadine)) 10 mg tablet Loratadine (Allergy Relief (Loratadine)) 10 mg tablet 07/12/2019 10:16:12 AM EST 10 MG completed [facility] Loratadine 10 MG Oral Tablet Loratadine (Allergy Relief (Loratadine)) 10 mg tablet Loratadine (Allergy Relief (Loratadine)) 10 mg tablet 07/12/2019 10:16:12 AM EST 10 MG completed [facility] Loratadine 10 MG Oral Tablet Loratadine (Allergy Relief (Loratadine)) 10 mg tablet Loratadine (Allergy Relief (Loratadine)) 10 mg tablet 07/12/2019 10:16:12 AM EST 10 MG completed [facility] Loratadine 10 MG Oral Tablet Loratadine (Allergy Relief (Loratadine)) 10 mg tablet Loratadine (Allergy Relief (Loratadine)) 10 mg tablet 07/12/2019 10:16:12 AM EST 10 MG completed [facility] Loratadine 10 MG Oral Tablet Loratadine (Allergy Relief (Loratadine)) 10 mg tablet Loratadine (Allergy Relief (Loratadine)) 10 mg tablet 07/12/2019 10:16:12 AM EST 10 MG completed [facility] Loratadine 10 MG Oral Tablet Loratadine (Allergy Relief (Loratadine)) 10 mg tablet Loratadine (Allergy Relief (Loratadine)) 10 mg tablet 07/12/2019 10:16:12 AM EST 10 MG active [facility] Loratadine 10 MG Oral Tablet Loratadine (Allergy Relief (Loratadine)) 10 mg tablet Loratadine (Allergy Relief (Loratadine)) 10 mg tablet 07/12/2019 10:16:12 AM EST 10 MG completed [facility] Loratadine 10 MG Oral Tablet Loratadine (Allergy Relief (Loratadine)) 10 mg tablet Loratadine (Allergy Relief (Loratadine)) 10 mg tablet 07/12/2019 10:15:06 AM EST 10 MG completed [facility] Loratadine 10 MG Oral Tablet Loratadine 07/12/2019 10:15:06 AM EST 10 MG completed [facility] Loratadine 10 MG Oral Tablet Loratadine (Allergy Relief (Loratadine)) 10 mg tablet Loratadine (Allergy Relief (Loratadine)) 10 mg tablet 07/12/2019 10:15:06 AM EST 10 MG completed [facility] Loratadine 10 MG Oral Tablet Loratadine (Allergy Relief (Loratadine)) 10 mg tablet Loratadine (Allergy Relief (Loratadine)) 10 mg tablet 07/12/2019 10:15:06 AM EST 10 MG completed [facility] Loratadine 10 MG Oral Tablet Loratadine (Allergy Relief (Loratadine)) 10 mg tablet Loratadine (Allergy Relief (Loratadine)) 10 mg tablet 07/12/2019 10:15:06 AM EST 10 MG completed [facility] Loratadine 10 MG Oral Tablet Loratadine (Allergy Relief (Loratadine)) 10 mg tablet Loratadine (Allergy Relief (Loratadine)) 10 mg tablet 07/12/2019 10:15:06 AM EST 10 MG completed [facility] Loratadine 10 MG Oral Tablet Loratadine (Allergy Relief (Loratadine)) 10 mg tablet Loratadine (Allergy Relief (Loratadine)) 10 mg tablet 07/12/2019 10:15:06 AM EST 10 MG completed [facility] Loratadine 10 MG Oral Tablet Loratadine (Allergy Relief (Loratadine)) 10 mg tablet Loratadine (Allergy Relief (Loratadine)) 10 mg tablet 07/12/2019 10:15:06 AM EST 10 MG completed [facility] Loratadine 10 MG Oral Tablet Loratadine (Allergy Relief (Loratadine)) 10 mg tablet Loratadine (Allergy Relief (Loratadine)) 10 mg tablet 07/12/2019 10:15:06 AM EST 10 MG completed [facility] Loratadine 10 MG Oral Tablet Loratadine (Allergy Relief (Loratadine)) 10 mg tablet Loratadine (Allergy Relief (Loratadine)) 10 mg tablet 07/12/2019 10:15:06 AM EST 10 MG completed [facility] montelukast 10 MG Oral Tablet Montelukast Montelukast 07/12/2019 10:14:59 AM EST 10 MG completed [facility] montelukast 10 MG Oral Tablet Montelukast Montelukast 07/12/2019 10:14:59 AM EST 10 MG completed [facility] montelukast 10 MG Oral Tablet Montelukast Montelukast 07/12/2019 10:14:59 AM EST 10 MG completed [facility] montelukast 10 MG Oral Tablet Montelukast Montelukast 07/12/2019 10:14:59 AM EST 10 MG active [facility] montelukast 10 MG Oral Tablet Montelukast Montelukast 07/12/2019 10:14:59 AM EST 10 MG completed [facility] montelukast 10 MG Oral Tablet Montelukast Montelukast 07/12/2019 10:14:59 AM EST 10 MG active [facility] montelukast 10 MG Oral Tablet Montelukast Montelukast 07/12/2019 10:14:59 AM EST 10 MG completed [facility] montelukast 10 MG Oral Tablet Montelukast Montelukast 07/12/2019 10:14:59 AM EST 10 MG completed [facility] montelukast 10 MG Oral Tablet Montelukast Montelukast 07/12/2019 10:14:59 AM EST 10 MG completed [facility] montelukast 10 MG Oral Tablet Montelukast Montelukast 07/12/2019 10:14:59 AM EST 10 MG active [facility] Testosterone Cypionate 06/27/2019 08:37:11 AM EST 300 MG completed [facility] Testosterone Cypionate 06/27/2019 08:37:11 AM EST 300 MG active [facility] Testosterone Cypionate 06/27/2019 08:37:11 AM EST 300 MG completed [facility] Testosterone Cypionate 06/27/2019 08:37:11 AM EST 300 MG completed [facility] Testosterone Cypionate 06/27/2019 08:37:11 AM EST 300 MG completed [facility] Testosterone Cypionate 06/27/2019 08:37:11 AM EST 300 MG completed [facility] Testosterone Cypionate 06/27/2019 08:37:11 AM EST 300 MG completed [facility] Testosterone Cypionate 06/27/2019 08:37:11 AM EST 300 MG completed [facility] Testosterone Cypionate 06/27/2019 08:37:11 AM EST 300 MG completed [facility] Testosterone Cypionate 06/27/2019 08:37:11 AM EST 300 MG completed [facility] Testosterone Cypionate 06/27/2019 08:37:11 AM EST 300 MG completed [facility] Syringe (Disposable) (Bd Luer-Yanira Tip Control Syring) 10 mL syringe 06/27/2019 08:37:00 AM EST 1 EACH completed [facility] Syringe (Disposable) (Bd Luer-Yanira Tip Control Syring) 10 mL syringe 06/27/2019 08:37:00 AM EST 1 EACH completed [facility] Syringe (Disposable) (Bd Luer-Yanira Tip Control Syring) 10 mL syringe 06/27/2019 08:37:00 AM EST 1 EACH completed [facility] Syringe (Disposable) (Bd Luer-Yanira Tip Control Syring) 10 mL syringe 06/27/2019 08:37:00 AM EST 1 EACH completed [facility] Syringe (Disposable) 06/27/2019 08:37:00 AM EST 1 EACH active [facility] Syringe (Disposable) 06/27/2019 08:37:00 AM EST 1 EACH active [facility] Syringe (Disposable) (Bd Luer-Yanira Tip Control Syring) 10 mL syringe 06/27/2019 08:37:00 AM EST 1 EACH completed [facility] Syringe (Disposable) (Bd Luer-Yanira Tip Control Syring) 10 mL syringe 06/27/2019 08:37:00 AM EST 1 EACH completed [facility] Syringe (Disposable) (Bd Luer-Yanira Tip Control Syring) 10 mL syringe 06/27/2019 08:37:00 AM EST 1 EACH completed [facility] Syringe (Disposable) (Bd Luer-Yanira Tip Control Syring) 10 mL syringe 06/27/2019 08:37:00 AM EST 1 EACH completed [facility] Syringe (Disposable) (Bd Luer-Yanira Tip Control Syring) 10 mL syringe 06/27/2019 08:37:00 AM EST 1 EACH completed [facility] Testosterone Cypionate 04/28/2019 07:29:49 AM EST 300 MG completed [facility] Testosterone Cypionate 04/28/2019 07:29:49 AM EST 300 MG completed [facility] Testosterone Cypionate 04/28/2019 07:29:49 AM EST 300 MG completed [facility] Testosterone Cypionate 04/28/2019 07:29:49 AM EST 300 MG completed [facility] Testosterone Cypionate 04/28/2019 07:29:49 AM EST 300 MG completed [facility] Testosterone Cypionate 04/28/2019 07:29:49 AM EST 300 MG completed [facility] Testosterone Cypionate 04/28/2019 07:29:49 AM EST 300 MG completed [facility] Testosterone Cypionate 04/28/2019 07:29:49 AM EST 300 MG completed [facility] Testosterone Cypionate 04/28/2019 07:29:49 AM EST 300 MG completed [facility] Testosterone Cypionate 04/28/2019 07:29:49 AM EST 300 MG completed [facility] Testosterone Cypionate 04/28/2019 07:29:49 AM EST 300 MG completed [facility] Syringe (Disposable) (Bd Luer-Yanira Tip Control Syring) 10 mL syringe 04/28/2019 07:29:08 AM EST 1 EACH completed [facility] Syringe (Disposable) 04/28/2019 07:29:08 AM EST 1 EACH completed [facility] Syringe (Disposable) (Bd Luer-Yanira Tip Control Syring) 10 mL syringe 04/28/2019 07:29:08 AM EST 1 EACH completed [facility] Syringe (Disposable) (Bd Luer-Yanira Tip Control Syring) 10 mL syringe 04/28/2019 07:29:08 AM EST 1 EACH completed [facility] Syringe (Disposable) 04/28/2019 07:29:08 AM EST 1 EACH completed [facility] Syringe (Disposable) (Bd Luer-Yanira Tip Control Syring) 10 mL syringe 04/28/2019 07:29:08 AM EST 1 EACH completed [facility] Syringe (Disposable) (Bd Luer-Yanira Tip Control Syring) 10 mL syringe 04/28/2019 07:29:08 AM EST 1 EACH completed [facility] Syringe (Disposable) (Bd Luer-Yanira Tip Control Syring) 10 mL syringe 04/28/2019 07:29:08 AM EST 1 EACH completed [facility] Syringe (Disposable) (Bd Luer-Yanira Tip Control Syring) 10 mL syringe 04/28/2019 07:29:08 AM EST 1 EACH completed [facility] Syringe (Disposable) (Bd Luer-Yanira Tip Control Syring) 10 mL syringe 04/28/2019 07:29:08 AM EST 1 EACH completed [facility] Syringe (Disposable) (Bd Luer-Yanira Tip Control Syring) 10 mL syringe 04/28/2019 07:29:08 AM EST 1 EACH completed [facility] Alprazolam 0.5 MG Oral Tablet Alprazolam 02/16/2019 10:08:03 AM EDT 0.[address] [facility] Alprazolam 0.5 MG Oral Tablet Alprazolam 02/16/2019 10:08:03 AM EDT 0.[address] [facility] Alprazolam 0.5 MG Oral Tablet Alprazolam 02/16/2019 10:08:03 AM EDT 0.[address] [facility] Alprazolam 0.5 MG Oral Tablet Alprazolam 02/16/2019 10:08:03 AM EDT 0.[address] [facility] Alprazolam 0.5 MG Oral Tablet Alprazolam 02/16/2019 10:08:03 AM EDT 0.[address] [facility] Alprazolam 0.5 MG Oral Tablet Alprazolam 02/16/2019 10:08:03 AM EDT 0.[address] [facility] Alprazolam 0.5 MG Oral Tablet Alprazolam 02/16/2019 10:08:03 AM EDT 0.[address] [facility] Alprazolam 0.5 MG Oral Tablet Alprazolam 02/16/2019 10:08:03 AM EDT 0.[address] [facility] Alprazolam 0.5 MG Oral Tablet Alprazolam 02/16/2019 10:08:03 AM EDT 0.[address] [facility] Lisinopril 40 MG Oral Tablet Lisinopril 01/27/2019 02:55:33 PM EDT 40 MG completed [facility] Lisinopril 40 MG Oral Tablet Lisinopril 01/27/2019 02:55:33 PM EDT 40 MG completed [facility] Lisinopril 40 MG Oral Tablet Lisinopril 01/27/2019 02:55:33 PM EDT 40 MG completed [facility] Lisinopril 40 MG Oral Tablet Lisinopril 01/27/2019 02:55:33 PM EDT 40 MG completed [facility] Lisinopril 40 MG Oral Tablet Lisinopril 01/27/2019 02:55:33 PM EDT 40 MG completed [facility] Lisinopril 40 MG Oral Tablet Lisinopril 01/27/2019 02:55:33 PM EDT 40 MG completed [facility] Lisinopril 40 MG Oral Tablet Lisinopril 01/27/2019 02:55:33 PM EDT 40 MG completed [facility] Lisinopril 40 MG Oral Tablet Lisinopril 01/27/2019 02:55:33 PM EDT 40 MG completed [facility] montelukast 10 MG Oral Tablet Montelukast Montelukast 01/11/2019 08:44:39 AM EDT 10 MG completed [facility] montelukast 10 MG Oral Tablet Montelukast Montelukast 01/11/2019 08:44:39 AM EDT 10 MG completed [facility] montelukast 10 MG Oral Tablet Montelukast Montelukast 01/11/2019 08:44:39 AM EDT 10 MG completed [facility] montelukast 10 MG Oral Tablet Montelukast Montelukast 01/11/2019 08:44:39 AM EDT 10 MG completed [facility] montelukast 10 MG Oral Tablet Montelukast Montelukast 01/11/2019 08:44:39 AM EDT 10 MG completed [facility] montelukast 10 MG Oral Tablet Montelukast Montelukast 01/11/2019 08:44:39 AM EDT 10 MG completed [facility] montelukast 10 MG Oral Tablet Montelukast Montelukast 01/11/2019 08:44:39 AM EDT 10 MG completed [facility] montelukast 10 MG Oral Tablet Montelukast Montelukast 01/11/2019 08:44:39 AM EDT 10 MG completed [facility] montelukast 10 MG Oral Tablet Montelukast Montelukast 01/11/2019 08:44:39 AM EDT 10 MG completed [facility] montelukast 10 MG Oral Tablet Montelukast Montelukast 01/11/2019 08:44:39 AM EDT 10 MG completed [facility] montelukast 10 MG Oral Tablet Montelukast Montelukast 01/11/2019 08:44:39 AM EDT 10 MG completed [facility] Citalopram 20 MG Oral Tablet Citalopram 01/11/2019 08:36:56 AM EDT 30 MG completed [facility] Citalopram 20 MG Oral Tablet Citalopram 01/11/2019 08:36:56 AM EDT 30 MG [facility] [facility] C[facility]ram 20 MG Oral Tablet Citalopram 01/11/2019 08:36:56 AM EDT 30 MG completed [facility] Citalopram 20 MG Oral Tablet Citalopram 01/11/2019 08:36:56 AM EDT 30 MG completed [facility] Citalopram 20 MG Oral Tablet Citalopram 01/11/2019 08:36:56 AM EDT 30 MG completed [facility] Citalopram 20 MG Oral Tablet Citalopram 01/11/2019 08:36:56 AM EDT 30 MG completed [facility] Citalopram 20 MG Oral Tablet Citalopram 01/11/2019 08:36:56 AM EDT 30 MG completed [facility] Citalopram 20 MG Oral Tablet Citalopram 01/11/2019 08:36:56 AM EDT 30 MG completed [facility] Citalopram 20 MG Oral Tablet Citalopram 01/11/2019 08:36:56 AM EDT 30 MG completed [facility] meloxicam 7.5 MG Oral Tablet Meloxicam Meloxicam 12/06/2018 09:1 0:22 AM EDT 7.[address] [facility] meloxicam 7.5 MG Oral Tablet Meloxicam Meloxicam 12/06/2018 09:1 0:22 AM EDT 7.[address] [facility] meloxicam 7.5 MG Oral Tablet Meloxicam Meloxicam 12/06/2018 09:1 0:22 AM EDT 7.[address] [facility] meloxicam 7.5 MG Oral Tablet Meloxicam Meloxicam 12/06/2018 09:1 0:22 AM EDT 7.[address] [facility] meloxicam 7.5 MG Oral Tablet Meloxicam Meloxicam 12/06/2018 09:1 0:22 AM EDT 7.[address] [facility] meloxicam 7.5 MG Oral Tablet Meloxicam Meloxicam 12/06/2018 09:1 0:22 AM EDT 7.[address] [facility] meloxicam 7.5 MG Oral Tablet Meloxicam Meloxicam 12/06/2018 09:1 0:22 AM EDT 7.[address] [facility] meloxicam 7.5 MG Oral Tablet Meloxicam Meloxicam 12/06/2018 09:1 0:22 AM EDT 7.[address] [facility] meloxicam 7.5 MG Oral Tablet Meloxicam Meloxicam 12/06/2018 09:1 0:22 AM EDT 7.[address] [facility] Divalproex Sodium 250 MG Delayed Release Oral Tablet Divalpr oex 12/06/2018 09:01:16 AM EDT completed [facility] Divalproex Sodium 250 MG Delayed Release Oral Tablet Divalpr oex 12/06/2018 09:01:16 AM EDT completed [facility] Divalproex Sodium 250 MG Delayed Release Oral Tablet Divalpr oex 12/06/2018 09:01:16 AM EDT completed [facility] Divalproex Sodium 250 MG Delayed Release Oral Tablet Divalpr oex 12/06/2018 09:01:16 AM EDT completed [facility] Divalproex Sodium 250 MG Delayed Release Oral Tablet Divalpr oex 12/06/2018 09:01:16 AM EDT completed [facility] Divalproex Sodium 250 MG Delayed Release Oral Tablet Divalpr oex 12/06/2018 09:01:16 AM EDT completed [facility] Divalproex Sodium 250 MG Delayed Release Oral Tablet Divalpr oex 12/06/2018 09:01:16 AM EDT completed [facility] Divalproex Sodium 250 MG Delayed Release Oral Tablet Divalpr oex 12/06/2018 09:01:16 AM EDT completed [facility] Divalproex Sodium 250 MG Delayed Release Oral Tablet Divalpr oex 12/06/2018 09:01:16 AM EDT completed [facility] 24 HR Bupropion Hydrochloride 300 MG Extended Release Oral Tablet Bupropion Hcl Bupropion Hcl 09/06/2018 09:28:00 AM EDT 300 MG complete [facility] 24 HR Bupropion Hydrochloride 300 MG Extended Release Oral Tablet Bupropion Hcl Bupropion Hcl 09/06/2018 09:28:00 AM EDT 300 MG complete [facility] 24 HR Bupropion Hydrochloride 300 MG Extended Release Oral Tablet Bupropion Hcl Bupropion Hcl 09/06/2018 09:28:00 AM EDT 300 MG complete [facility] 24 HR Bupropion Hydrochloride 300 MG Extended Release Oral Tablet Bupropion Hcl Bupropion Hcl 09/06/2018 09:28:00 AM EDT 300 MG complete [facility] 24 HR Bupropion Hydrochloride 300 MG Extended Release Oral Tablet Bupropion Hcl Bupropion Hcl 09/06/2018 09:28:00 AM EDT 300 MG complete [facility] 24 HR Bupropion Hydrochloride 300 MG Extended Release Oral Tablet Bupropion Hcl Bupropion Hcl 09/06/2018 09:28:00 AM EDT 300 MG complete [facility] 24 HR Bupropion Hydrochloride 300 MG Extended Release Oral Tablet Bupropion Hcl Bupropion Hcl 09/06/2018 09:28:00 AM EDT 300 MG complete [facility] 24 HR Bupropion Hydrochloride 300 MG Extended Release Oral Tablet Bupropion Hcl Bupropion Hcl 09/06/2018 09:28:00 AM EDT 300 MG complete [facility] 24 HR Bupropion Hydrochloride 300 MG Extended Release Oral Tablet Bupropion Hcl Bupropion Hcl 09/06/2018 09:28:00 AM EDT 300 MG complete [facility] 24 HR Bupropion Hydrochloride 300 MG Extended Release Oral Tablet Bupropion Hcl Bupropion Hcl 09/06/2018 09:28:00 AM EDT 300 MG complete d [facility] 24 HR Bupropion Hydrochloride 300 MG Extended Release Oral Tablet Bupropion Hcl Bupropion Hcl 09/06/2018 09:28:00 AM EDT 300 MG complete d [facility] Trazodone Hydrochloride 50 MG Oral Tablet Trazodone Hcl Traz odone Hcl 07/08/2018 08:40:00 AM EST completed [facility] Trazodone Hydrochloride 50 MG Oral Tablet Trazodone Hcl Traz odone Hcl 07/08/2018 08:40:00 AM EST completed [facility] Trazodone Hydrochloride 50 MG Oral Tablet Trazodone Hcl Traz odone Hcl 07/08/2018 08:40:00 AM EST completed [facility] Trazodone Hydrochloride 50 MG Oral Tablet Trazodone Hcl Traz odone Hcl 07/08/2018 08:40:00 AM EST completed [facility] Trazodone Hydrochloride 50 MG Oral Tablet Trazodone Hcl Traz odone Hcl 07/08/2018 08:40:00 AM EST completed [facility] Trazodone Hydrochloride 50 MG Oral Tablet Trazodone Hcl Traz odone Hcl 07/08/2018 08:40:00 AM EST completed [facility] Trazodone Hydrochloride 50 MG Oral Tablet Trazodone Hcl Traz odone Hcl 07/08/2018 08:40:00 AM EST completed [facility] Trazodone Hydrochloride 50 MG Oral Tablet Trazodone Hcl Traz odone Hcl 07/08/2018 08:40:00 AM EST completed [facility] Trazodone Hydrochloride 50 MG Oral Tablet Trazodone Hcl Traz odone Hcl 07/08/2018 08:40:00 AM EST completed [facility] Trazodone Hydrochloride 50 MG Oral Tablet Trazodone Hcl Traz odone Hcl 07/08/2018 08:40:00 AM EST completed [facility] Trazodone Hydrochloride 50 MG Oral Tablet Trazodone Hcl Traz odone Hcl 07/08/2018 08:40:00 AM EST completed [facility] gabapentin 400 MG Oral Capsule Gabapentin Gabapentin 2013 10:47:38 AM EDT 400 MG completed [facility] gabapentin 400 MG Oral Capsule Gabapentin Gabapentin 2013 10:47:38 AM EDT 400 MG completed [facility] gabapentin 400 MG Oral Capsule Gabapentin Gabapentin 2013 10:47:38 AM EDT 400 MG completed [facility] gabapentin 400 MG Oral Capsule Gabapentin Gabapentin 2013 10:47:38 AM EDT 400 MG completed [facility] gabapentin 400 MG Oral Capsule Gabapentin Gabapentin 2013 10:47:38 AM EDT 400 MG completed [facility] gabapentin 400 MG Oral Capsule Gabapentin Gabapentin 2013 10:47:38 AM EDT 400 MG completed [facility] gabapentin 400 MG Oral Capsule Gabapentin Gabapentin 2013 10:47:38 AM EDT 400 MG completed [facility] gabapentin 400 MG Oral Capsule Gabapentin Gabapentin 2013 10:47:38 AM EDT 400 MG completed [facility] gabapentin 400 MG Oral Capsule Gabapentin Gabapentin 2013 10:47:38 AM EDT 400 MG completed [facility] sildenafil 100 MG Oral Tablet [Viagra] Sildenafil (Via gra) 100 mg tablet Sildenafil (Viagra) 100 mg tablet 12/20/2012 10:04:00 AM EDT 100 MG completed [facility] sildenafil 100 MG Oral Tablet [Viagra] Sildenafil (Via gra) 100 mg tablet Sildenafil (Viagra) 100 mg tablet 12/20/2012 10:04:00 AM EDT 100 MG completed [facility] sildenafil 100 MG Oral Tablet [Viagra] Sildenafil (Via gra) 100 mg tablet Sildenafil (Viagra) 100 mg tablet 12/20/2012 10:04:00 AM EDT 100 MG completed [facility] sildenafil 100 MG Oral Tablet [Viagra] Sildenafil (Via gra) 100 mg tablet Sildenafil (Viagra) 100 mg tablet 12/20/2012 10:04:00 AM EDT 100 MG completed [facility] sildenafil 100 MG Oral Tablet [Viagra] Sildenafil (Via gra) 100 mg tablet Sildenafil (Viagra) 100 mg tablet 12/20/2012 10:04:00 AM EDT 100 MG completed [facility] sildenafil 100 MG Oral Tablet [Viagra] Sildenafil (Via gra) 100 mg tablet Sildenafil (Viagra) 100 mg tablet 12/20/2012 10:04:00 AM EDT 100 MG completed [facility] sildenafil 100 MG Oral Tablet [Viagra] Sildenafil (Via gra) 100 mg tablet Sildenafil (Viagra) 100 mg tablet 12/20/2012 10:04:00 AM EDT 100 MG completed [facility] Insurance Providers Payer name Policy type / Coverage type Policy ID Covered democrat ID Covered democrat's relationship to valentino Policy Valentino Plan Information MEDICARE [id number] SP [id number] [facility] [id number] SP [id number] [place] [id number] 18 [id number] [place] [id number] 18 [id number] SELF PAY [facility] [id number] SP [id number] SELF PAY SELF PAY [facility] MED[employer]ARE COMPLE[facility] - O/P [id number] 18 [id number] [facility] MGD MEDICARE [id number] SP [id number] MEDICARE PART A-O/P [id number] 18 [id number] [place] [id number] 18 [id number] [employer] MEDICARE COMPLETE - O/P [id number] 18 [id number] [facility] Other 0 Self 0 Medicare P [id number] S [id number] a MEDICARE A [id number] Self [id number] MEDICARE PART A [id number] Patient [id number] MEDICARE PART A [id number] Patient [id number] UNICARE [id number] Patient [id number] MEDICARE A [id number] Self [id number] A MEDICARE-CLINIC [id number] undefined [id number] [facility] SVC OPTIONS C [id number] S [id number] MEDICARE C [id number] S [id number] A MEDICARE PART A -I/P [id number] 18 [id number] Medicare P [id number] S [id number] [place] Self Medicare P UNAVAILABLE S UNAVAILA BLE Medicare P [id number] S [id number] a MEDICARE -O/P [id number] 18 [id number] Problems, Conditions, and Diagnoses Code Display Name Description Problem Type Effective Dates Data Source(s) 86578823 Schizoaffective disorder, depressive typ e Schizoaffective disorder, depressive type Problem 04/18/2020 12:00:00 AM GENEVIEVE HAZEL ([facility]) Ventral hernia without obstruction or ga ngrene Ventral hernia without obstruction or gangrene Problem 02/06/2020 12:00:00 AM EDT [facility] ([facility]) [id number] Essential hypertension Essential hypertension Problem 02/06/2020 12:00:00 AM EDT [facility] ([facility]) [id number] Allergic rhinitis due to pollen Allergic rhiniti s due to pollen Problem 11/09/2019 12:00:00 AM EDT [facility] ([facility]) Note: 3+ positive reaction to ragweed po llen on intradermal test. [id number] Allergic rhinitis due to house dust mite Allergic rhinitis due to house dust mite Problem 11/09/2019 12:00:00 AM EDT [facility] ([facility]) Note: 4+ reaction to dust mites and cock roaches on intradermal test. [id number] Essential hypertension Essential hypertension Problem 11/09/2019 12:00:00 AM EDT [facility] ([facility] ) F251 Schizoaffective disorder, depressive typ e Schizoaffective disorder, depressive type Diagnosis 06/06/2020 01:55:00 PM EST [facility] D48.5 Neoplasm of uncertain behavior of skin D 48.5 - Neoplasm of uncertain behavior of skin Diagnosis 03/04/2020 04:45:00 PM EDT [facility] NONPAR NONPAR Diagnosis 03/04/2020 02:51:00 PM ED T [facility] D48.5 Neoplasm of uncertain behavior of skin N EOPLASM OF UNCERTAIN BEHAVIOR OF SKIN Diagnosis 03/04/2020 02:51:00 PM EDT [facility] ital F17.200 Nicotine dependence, unspecified, uncomp licated F17.200 - Nicotine dependence, unspecified, uncomplicated Diagnosis 02/12/2020 12:00:00 A M EDT [facility] F12.10 Cannabis abuse, uncomplicated F12.10 - Cannabis abuse, uncomplicated Diagnosis 02/12/2020 12:00:00 AM EDT [facility] F19.10 Other psychoactive substance abuse, unco mplicated F19.10 - Other psychoactive substance abuse, uncomplicated Diagnosis 02/12/2020 12:00:00 AM EDT [facility] F43.10 Post-traumatic stress disorder, unspecif ied F43.10 - Post-traumatic stress disorder, unspecified Diagnosis 02/12/2020 12:00:00 AM [facility] F41.0 Panic disorder [episodic paroxysmal anxi ety] F41.0 - Panic disorder [episodic paroxysmal anxiety] Diagnosis 02/12/2020 12:[facility] F[facility].1 Generalized anxiety disorder F41.1 - Generalized anxiety disorder Diagnosis 02/12/2020 12:00:00 AM EDT [facility] F31.2 Bipolar disorder, current episode manic severe with psychotic features F31.2 - Bipolar disorder, current episode manic severe with psychotic features Diagnosis 02/12/2020 12:00:00 AM EDT [facility] F22 Delusional disorders F22 - Delusional disorders Diagno sis 02/12/2020 12:00:00 AM EDT [facility] F341 Dysthymic disorder Dysthymic disorder Diagnosis 0 06:08:00 PM EDT [facility] I10 Essential (primary) hypertension Essential (primary) h ypertension Diagnosis 02/07/2020 06:08:00 PM EDT [facility] L538 Other specified erythematous conditions Other specified erythematous conditions Diagnosis 02/07/2020 06:08:00 PM EDT [facility] E860 Dehydration Dehydration Diagnosis 02/07/2020 06:08:00 PM EDT [facility] R110 Nausea Nausea Diagnosis 02/07/2020 06:08:00 PM ED T [facility] K420 Umbilical hernia with obstruction, witho ut gangrene Umbilical hernia with obstruction, without gangrene Diagnosis 02/06/2020 02:30:00 PM EDT [facility] K439 Ventral hernia without obstruction or ga ngrene Ventral hernia without obstruction or gangrene Diagnosis 02/06/2020 10:51:00 AM EDT [facility] Y[address] or not applicable Unspecified place or not applicable Diagnosis 05/29/2019 01:24:[address] [facility] [id number] Exposure to other specified factors, ini tial encounter Exposure to other specified factors, initial encounter Diagnosis 05/29/2019 01:24:[address] [facility] [id number] Strain of muscle, fascia and tendon of the posterior muscle group at thigh level, left thigh, initial encounter Strain of muscle, fascia and tendon of the posterior muscle group at thigh level, left thigh, initial encounter Diagnosis 05/29/2019 01:24:[address] [facility] [id number] Sprain of unspecified site of left knee, initial encounter Sprain of unspecified site of left knee, initial encounter Diagnosis 05/29 01:24:[address] [facility] [id number] Unspecified injury of left lower leg, in itial encounter Unspecified injury of left lower leg, initial encounter Diagnosis 05/29/2019 01:24:[address] [facility] Surgeries/Procedures Procedure Description Date Indications Data Source(s) Psychiatric Diagnostic Evaluation 04/18/2020 12:00:00 AM [facility]) Cytopathology procedure, preparation of smear, genital sourc e (procedure) 02/07/2020 12:00:00 AM [facility] Cytopathology procedure, preparation of smear, genital sourc e (procedure) 02/07/2020 12:00:00 AM [facility] Cytopathology procedure, preparation of smear, genital sourc e (procedure) 02/07/2020 12:00:00 AM [facility] Cytopathology procedure, preparation of smear, genital sourc e (procedure) 02/07/2020 12:00:00 AM [facility] Blood culture for bacteria, including anaerobic screen (proc edure) 02/07/2020 12:00:00 AM [facility] Blood culture for bacteria, including anaerobic screen (proc edure) 02/07/2020 12:00:00 AM [facility] Computed tomography of abdomen and pelvis with contrast (pro cedure) 02/05/2020 09:21:00 PM [facility] Computed tomography of abdomen and pelvis with contrast (pro cedure) 02/05/2020 09:21:00 PM [facility] Computed tomography of abdomen and pelvis with contrast (pro cedure) 02/05/2020 09:21:00 PM [facility] Computed tomography of abdomen and pelvis with contrast (pro cedure) 02/05/2020 09:21:00 PM [facility] Computed tomography of abdomen and pelvis with contrast (pro cedure) 02/05/2020 09:21:00 PM EDT [facility] Computed tomography of abdomen and pelvis with contrast (pro cedure) 02/05/2020 09:21:00 PM EDT [facility] Computed tomography of abdomen and pelvis with contrast (pro cedure) 02/05/2020 09:21:00 PM EDT [facility] PERCUTANEOUS TESTS W/ALLERGENIC EXTRACTS 11/09/2019 12 :00:00 AM EDT [facility] ([facility]) INTRACUTANEOUS TESTS W/ALLERGENIC EXTRACTS 11/09/2019 12:00:00 AM EDT [facility] ([facility]) Results ID Date Data Source [id number] 06/22/2020 12:00:00 AM EST [facility] Name Value Range Interpretation Code Description Data [place] rce(s) Supporting Document(s) SARS-CoV-2 (COVID-19) RNA [Presence] in Respiratory specimen by RICARDO with probe detection Not Detected [facility] This lab was ordered by [facility] and reported by [employer]. ID Date Data Source [id number] 06/21/2020 06:08:00 PM [facility] Normal result is "BinaxNow Covid-19 Ag n egative"BinaxNow Covid-19 Ag is a rapid lateral flowimmunochromatographic immunoassayThis test detects both viable(live) and non-viable, SARS-COVand SARS-COV-2.Positive test results do not differentiate between SARS-COVand [id number] results , from patients with symptom onset beyondseven days, should be treated as presumptive andconfirmation with a molecular assay, if necessary, forpatient managementIf the differentiation of specific SARS viruses and strainsis needed, additional testing, in consultation with stateand local public health departments, is required.SARS-CoV-2 Ag Resp Ql IA.rapid Name Value Range Interpretation Code Description Data [place] rce(s) Supporting Document(s) ID Date Data Source [id number] 06/21/2020 05:19:00 PM EST [facility] Name Value Range Interpretation Code Description Data [place] rce(s) Supporting Document(s) SARS-CoV-2 (COVID-19) Ag [Presence] in R espiratory specimen by Rapid immunoassay BinaxNow Covid -19 Ag Negative [facility] This lab was ordered by [facility] and reported by [facility]. ID Date Data Source [id number] 06/21/2020 09:31:00 AM EST [facility] Patient Name: PIPER LICEA : 1970 Sex: M Pt Unit #: [id number] Location:[facility] Provider: Visit Date/Time: 06/21/20 Primary Insurance: FilesX Secondary Insurance: Self Pay Intake Intake Visit [...] Screening Screening Have you traveled outside of [facility] or [facility] in the last 14 days.: No Has [...] of nose and nasal sinuses SNOMED Code(s): 62442213 Category: Medical (2) Headache: Status: Acute Code(s): R51.9 - Headache, unspecified SNOMED Code(s): 41186679 Category: Medical Additional Comments Additional Comments: I [...] Headache R51.9 <Electronically signed by Kelli Mcmanus MOMD TEACHER> 06/21/20 0938 Name Value Range Interpretation Code Description Data [place] rce(s) Supporting Document(s) ID Date Data Source [id number] 06/04/2020:18:00 PM [facility] Patient Name: PIPER LICEA : 1970 Sex: M Pt Unit #: [id number] [facility]: Visit Date/Time: 06/04/20 Primary Insurance: FilesX Secondary Insurance: Self Pay Intake Vital Signs [...] and colleagues, with an educational elie from [employer]. HIV Testing Offer - ages 13-64 HIV testing Offer: No Coronavirus Screening Screening Have you traveled outside of [facility] or [facility] in the last 14 days.: No Has patient experienced coronavirus symptoms: [facility] (Updated 04/04/20 @ 10:32 [...] depressive disorder, single episode, unspecified SNOMED Code(s): 30056961 Category: Medical Plan - Kelli Mcmanus NP: Continue 150mg sertaline. See back in 2-3 months for annual PE. Continue to see [facility] health Bi weekly. Additional Comments Additional Comments: Paper completed for DMV. Orders Other Medications: Changed: From: olanzapine 10 mg PO QPM 30 days 30 tabs 3RF To: olanzapine 20 mg (2 x 10 mg) PO QPM 60 tabs 3RF Coding Level of Care Code 50745 Est Pt Limited Comp Exam Problem Focused Diagnoses Depression F32.9 <Electronically signed by Kelli Mcmanus MOMD TEACHER> 06/04/20 1349 Name Value Range Interpretation Code Description Data [place] rce(s) Supporting Document(s) ID Date Data Source [id number] 05/07/2020 10:59:00 AM [facility] Patient Name: PIPER LICEA : 1970 Sex: M Pt Unit #: [id number] Location:[facility] Provider: Visit Date/Time: 05/07/20 Primary Insurance: FilesX Secondary Insurance: Self Pay Intake Vital Signs [...] gives 2 needles-can he get more), klonopin. Lsat Instructor Required: No Allergies dust mites Allergy (Severe, [...] and colleagues, with an educational elie from [employer]. HIV Testing Offer - ages 13-64 HIV testing Offer: No Coronavirus Screening Screening Have you traveled outside of [facility] or [facility] in the last 14 days.: No Has [...] been able to get into [facility] for therapy and this has been going [...] depressive disorder, single episode, unspecified SNOMED Code(s): 42360646 Category: Medical Plan - Kelli Mcmanus MOMD TEACHER: Has an appt tomorrow with mental health. [...] cypionate Inject 1ml into muscle Q2 week VACUUM DRIER TENDER:[id number] 200 mg IM Q2W 14 days 1 vial 0RF MDD 300 R79.89 Follow Up: 1 Month (Mental health) <Electronically signed by Kelli Mcmanus NP> 05/07/20 1308 Name Value Range Interpretation Code Description Data [place] rce(s) Supporting Document(s) ID Date Data Source [id number] 05/06/2020 11:29:00 AM EST [facility] ([facility]) Name Value Range Interpretation Code Description Data [place] rce(s) Supporting Document(s) PDF Laboratory test result [facility] ([facility]) {DIAGNOSIS: F25.1~{MEDICATIONS/DECLARED : CLONAZEPAM DEPAKOTE MELOXICAM PRAZOSIN~{PRESCRIPTION I Laboratory test finding (navigational concept) Laboratory test result [facility] ([facility]) {DIAGNOSIS: F25.1~{MEDICATIONS/DECLARED : CLONAZEPAM DEPAKOTE MELOXICAM PRAZOSIN~{PRESCRIPTION I ID Date Data Source [id number] 05/11/2020 06:59:00 AM EST [facility] Name Value Range Interpretation Code Description Data [place] rce(s) Supporting Document(s) Drugs identified in Urine FINAL [facility] TOXASSURE SELECT 13 (MW) Test Result Flag [...] clinical consultation, please call . Report . [facility] ID Date Data Source [id number] 04/24/2020 11:41:00 AM [facility] Patient Name: PIPER LICEA : 1970 Sex: M Pt Unit #: [id number] Location:[facility] Provider: Visit Date/Time: 04/24/20 Primary Insurance: [employer] Secondary Insurance: Self Pay Intake Vital Signs [...] Screening Screening Have you traveled outside of [facility] or [facility] in the last 14 days.: No Has [...] F41.9 - Anxiety disorder, unspecified SNOMED Code(s): 11369602 Category: Medical Plan - Kelli Yonathan, MOMD TEACHER: Anxiety at baseline. Will keep follow up for next month. Paperwork completed. No concerns today. <Electronically signed by Kelli Mcmanus NP> 04/24/20 1301 Name Value Range Interpretation Code Description Data Geneva rce(s) Supporting Document(s) ID Date Data Source [id number] 04/09/2020 07:37:00 AM [facility] Name Value Range Interpretation Code Description Data Geneva rce(s) Supporting Document(s) Free Testosterone (Direct) 218.6 pg/mL 46.0-224.0 [facility] The concentration of free testosterone i s derivedfrom a mathematical model using total testosteroneby LCMSMS, sex hormone binding globulin and albumin.This test was developed and its analytical performancecharacteristics have been determined by [employer] [place], [place]. It hasnot been cleared or approved by the U.S. Food and DrugAdministration. This assay has been validated pursuantto the CLIA regulations and is used for clinicalpurposes.THIS TEST WAS PERFORMED AT:[employer] [place] [address]IAMBBWVBLAISE FOY MD,PHD ID Date Data Source [id number] 04/09/2020 07:37:00 AM [facility] Name Value Range Interpretation Code Description Data Geneva rce(s) Supporting Document(s) Testosterone 649 ng/dL 250-827 [facility] THIS TEST WAS PERFORMED AT:[facility] [address] [address]TNGFLN MERATI,MD ID Date Data Source [id number] 04/04/2020 10:05:00 AM [facility] Patient Name: PIPER LICEA : 1970 Sex: M Pt Unit #: [id number] Location:[facility] Provider: Visit Date/Time: 04/04/20 Primary Insurance: [...] still suffering with severe depression and anxiety. Lsat Instructor Required: No Accompanied by: Self / Same [...] Screening Screening Have you traveled outside of [facility] or [facility] in the last 14 days.: No Has [...] depressive disorder, single episode, unspecified SNOMED Code(s): 34647960 Category: Medical Orders: Referrals: Mental Health Referral (3) Anxiety: Status: Acute Code(s): F41.9 - Anxiety disorder, unspecified SNOMED Code(s): 09195001 Category: Medical Orders: Referrals: Mental Health Referral (4) PTSD (post-traumatic stress disorder): Status: Acute Code(s): F43.10 - Post-traumatic stress disorder, unspecified SNOMED Code(s): 08130436 Category: Medical (5) Paranoia: Status: Acute Code(s): F22 - Delusional disorders SNOMED Code(s): 850877394 Category: Medical Additional Comments Additional Comments: Increased sertraline to 100mg. Will consider changing his xanax to clonazepam. He will be reaching out to Tee at [facility] [place], to see if he can get back [...] cypionate Inject 1.5ml into muscle Q2 week [employer] T[employer]ER:[id number] 300 mg (1.5 mL) IM Q2W 14 days 1.5 vials 0RF MDD 300 R79.89 To: testosterone cypionate Inject 1ml into muscle Q2 week V[employer] T[employer]ER:[id number] 200 mg IM Q2W 14 days 1 vial 0RF MDD 300 R79.89 Discontinued: sertraline Discontinued Reason: Clinically Indicated 50 mg PO Q24H 30 days 30 tabs 3RF Other Orders: Orders: Free Testosterone (Direct) 1 Month R7 Testosterone, Total, Male 1 Month R7 <Electronically signed by Kelli Mcmanus MOMD TEACHER> 04/04/20 1034 Name Value Range Interpretation Code Description Data Geneva rce(s) Supporting Document(s) ID Date Data Source [id number] 03/13/2020 10:01:00 AM EDT [facility] Patient Name: Piper Licea : 1970 Sex: M Pt Unit #: [id number] Location:[facility] Provider: Visit Date/Time: 03/13/20 Primary Insurance: [facility] Secondary Insurance: Self Pay Intake Vital Signs [...] in the am and 1000mg at HS. Lsat Instructor Required: No Accompanied by: Self / Same [...] Screening Screening Have you traveled outside of [facility] or [facility] in the last 14 days.: No Has [...] up on medications. He was recently in [facility], admitted for vivid nightmares, and PTSD. He [...] Route Admin Location Lot Number Expiration Date [facility] Manufactu rer 60 mcg IM Left deltoid [id number] 11/27/20 65406-065-63 [employer] VIS Given Date VIS Provided VIS Publication Date 03/13/20 Single Vaccine 20 Eligibility Eligibility Date Funding Source Not [facility] Eligible 03/13/20 Private Assessment Plan Assessment Plan (1) Encounter for medication adjustment: Code(s): Z51.89 - Encounter for other specified aftercare (2) Depression: Status: Acute Code(s): F32.9 - Major depressive disorder, single episode, unspecified Category: Medical Plan - Kelli Mcmanus NP: He is doing well on new medications. He was seeing [place], however, he is unable to be seen [...] Today Z23 <Electronically signed by Kelli Mcmanus MOMD TEACHER> 03/13/20 1138 Name Value Range Interpretation Code Description Data Geneva rce(s) Supporting Document(s) ID Date Data Source [id number] 03/06/2020 05:32:01 PM EDT [facility] Name Value Range Interpretation Code Description Data [facility] rce(s) Supporting Document(s) PATHOLOGY RESULT () N J[facility] Contreras ital Name: PIPER LICEA : [address]: Eb Becker PAAcct: [id number] Unit: [id number] AGE: 49 Location: [facility] NPRe03/04/20 SEX: M Status: REG REF . SPEC: [id number] MARISABEL: 03/04/201418 DAWN DR: Eb Bekcer PAREQ: [id number] RECD: 03/04/20STATUS: SOUT_ORDERED: LEVEL 4COMMENTS: [id number] . FINAL DIAGNOSISSkin, sternum, biopsy:-- Excoriation.-- No [...] END OF REPORT .. DEPARTMENT OF PATHOLOGY, [address] [place] [address] Lucien Puckett M.D. Director [facility] # [id number]. ID Date Data Source [id number] 03/06/2020 10:30:01 AM EDT J[facility]wright Name Value Range Interpretation Code Description Data Geneva rce(s) Supporting Document(s) ID Date Data Source [id number] 03/05/2020 10:21:00 AM EDT [facility]#[id number]_ Name: PIPER LICEA : [address]: Eb MARTEL Acct: [id number] Unit: [id number] AGE: 49 Location: [facility] Re03/04/20 SEX: M Status: REG REF SPEC: [id number] MARISABEL: 03/04/[address]: Eb MARTEL REQ: [id number] RECD: 03/04/20 STATUS: SOUT _ORDERED: LEVEL 4 COMMENTS: [id number] FINAL DIAGNOSIS Skin, sternum, biopsy:-- Excoriation.-- No [...] 1021 END OF REPORT DEPARTMENT OF PATHOLOGY, [address] [place] [address] Lucien Puckett M.D. Director [facility] # [id number] Name Value Range Interpretation Code Description Data Geneva rce(s) Supporting Document(s) ID Date Data Source [id number] 02/12/2020 09:57:00 AM EDT [facility] Name Value Range Interpretation Code Description Data Geneva rce(s) Supporting Document(s) SARS-CoV-2 (COVID-19) N gene [Presence] in Nasopharynx by RICARDO with probe detection [facility] This lab was ordered by [facility] and reported by [facility]. ID Date Data Source [id number] 02/12/2020 07:42:00 PM EDT [facility] COVID Reason ED patient Priority Name Value Range Interpretation Code Description Data Geneva rce(s) Supporting Document(s) COVID 19 (RHEONIX) NOT-DETECTED NOTDETECTED [facility] The Collplant COVID-19 MDx Assay is an en dpoint RT-PCR assay intended for the qualitative detection of nucleic acid from SARS-CoV-2 in nasopharyngeal swabs. COVID testing using the Collplant analyzer was developed for the purpose of [...] public health authorities. ID Date Data Source [id number] 02/12/2020 04:46:00 AM EDT [facility] [address] [place] [place] [address] RESPIRATORY CARE REPORT ==== ---------NAME------- NUMBER SEX AGE ADMIT DISC. XRAY# [id number] TYPEWEELPIDIO Spain [id number] 49 02/07/20 02/08/20 [id number] [place] O/P DATE OF : 1970 M/R# [id number] #: [id number] LOCATION: EMERGENCY DEPT EKG 57480 COMP LETE:02/08/20 07:15 [place] [address] PHYSICIAN: SYLVIA SCHAEFER Name Value Range Interpretation Code Description Data Geneva rce(s) Supporting Document(s) ID Date Data Source [id number] 02/12/2020 04:30:43 AM EDT [facility] Name Value Range Interpretation Code Description Data Geneva rce(s) Supporting Document(s) EKG/ECG IN ED [facility] [file] [id number]4pFBeMR7DMIer4//López/wQd612U3jq/s [file] gxCiiigAooooAKKKKACiiigAooooAKKKKACiiigAooooAKKKKACiiigAooooAKKKKACiiigAooooAKKK WBQwockRuongK3muX1+2/4F/AlQkrpWbannf8rQolmg/GE7JGFUlSEoLXjPempwXQFZxbeBc6d+tJRRQ Lvq3jGvzjHjT+8frRRTGJRRRSEFLRRQMG+8frSUUUA Y8hfsivBZqbV4vbwWNc6BBUoXJeGSPon8c+eLSMYEb7iNmteVTV34y3mODKcQDBIHxklJLQIjeU07pLW VF6wVxvlSXMTkvX91XJx7FbNJRHSxtOPON93c2sSkyjUciteboNfoM+0flPONXWP6rqnLVvrhpCH+8fr UDNFMP9dDQLYRi/er6r0T/kAad/16xf+giiiqidmE3 ZfrX8N/kVKNw8J58U+YooqnsdFf+KY1twmkthhcfzpiFYFNJIOybaeMyxfhJVNTGFIblgkYoglrABRRV ACiiigAooooAKKKKACiiigAooooAKKKKACiiigAooooA//0Q5RSO5es1RiUTIqADplpjPtOukHVbV8MU Keg0XiMBw6ZT8VwXOiW91pvhJ6jO9TIMtyJtdcr5Qd XSLeGsxwkFLjP4VxCXXqEBEry0HbP2ruxza9qAAdJQT+Fd5Ty0GvKESmCAx8xH2POKdBXKWGc2G/cGM7 lXrvE4zDkHbVpLl5PIyftAumClx/z7CyxeDJiypqrciRlRFABGZNzUTXNCTwFonynoyHTNUVoVBpwTKj Nk1yJStmqQg1CwHYyPqwZTU5rom8RsCBKR+UC1IU42 6ZcJYnjAkzfL1tG6GoDxqOzg5vdg+YcSgLjokdiX96LakSdGE9zDmxlQGGit9Jt6ooDVif0XHBy2+1WK qQeDwaqbl2Jgx/bikE9VutM9C4EseGPpIUEmQhRGE5ysIpmA3LZS6am3DjGZumLXMwKI0gle6FCNmaST JvZHVjZXIo/p7GGTTjEUYOwzKeYZSBbzFbMTUYieBu EU9RPpBlGQfVLlZaYLCUVlIfOANWHKOxVRUQQAWsCSqkM6VlZBK0z8Al/r2UNRJtQQZSbhOiQRDFikBf YMGFknLsNW5LClXvSEtYYnQuCDVSOuWrDGESAXObQEFWNPNyFHurY3SjQMG1eK4lAIU7DTfLSwReRcCf YJM6LVwlFgLdKQTlBS2aIKS9KCgVTiMdVhYlKYO6TB gzMzEyKSA+Pr9DBD0au7SqLGhrQRJaAC0ctm9VWkBjYCAjQM1EDV0mw9WjTUjcODRxHU8epy4CDqEiTI AqEJ9ZXO1si8VqVTfeOUTpRJ3uxg0RHYnlACnqVL9BRsQhB3WfllFcFiVzY6wuSOA1KEAnKO4Fl836FJ UaMBWCJ9lyKu7gMMrpYRIXY3dGLyh9PMIcVMDwWHM1 J8FoPYOBUIFLZRZ3WxbAVYJ6ZJYuER33AnP9CYeMLCH7FVJKYGZ6SDQSVoCRZDB4UGZRZEUtKLN+XSAv HrxcxTJxI2OcIRUlSHEnm8TzH9btgqy6fJM9XT7+LErqeREnJC1HSpdvC5NWcq//GYGkIAMDiKqFUFvB LOCmTTB6Q5xfZzMYUQ3lonUsFUAXQaWWJaPJWGIWF9 MkelIYWZfwnA7TyWsjZdxTIEBEqbdjiIi+GtGdR8HSUF/qP7CMHiOhLJT2olHwzB4HMX3mj1WiXJb8hd PnXZkyPMPaFCmyTJJlRHGbQNRmQIV0LFN3KKFUOzIuNAGjFAEcNHgfNYPqFELwxb1PYPBzCVRjMCXkVV KjFTYvMBDyRXsdHQPwPDAxLGygRONgAMPiMC0NUkEr MYIcXLD0KYAmGNBiMSPwzl7XKSAeWXCqFUzjKYIyRVOkREPhBPpqNIYaSBHjWSUuCUXdHINfMD3XIrCc HKErPPTmWSZsJALlJEGlca9ACDRdSZCsXMJiGvEaOQFvGYZbYIqqBVFkMWRhXHT5ONXdOKNzVE9ZAiZo QZNvPKAcWWRiYoT6ZgYjBt2BSHVzIPVpKJXqNiS0YE RfZBCeFZvmGULvFZKdKKGaNUD3RRT4MNIHIkDnUBWzBPKfUJFvSlG6AtTzIz1TPHAgVXPsJMRsMXA6SG QsBGKyBTciCPKeJOHiQJH3QDF6CRR4PPXDLsHmRBPeGOHtEQgmExQ1JaKyVi9EAVPwCDLjIEHnMHL1SM CwGHJqQDphTRGtJlR5GtLpVCSfJMZxKQ2LBmToSYTw Nmk6EOwiIIFyBSLdrp4MKUNvZKNoGpF7JoKlAELgLRMqHAylFXXuClV1TNgfLRWhZJYcOD3UZnOmMZca LACNWal3N0YhnyCfZhRbUw5amFNgPXQvVs0QjnViKWU3ZOCpGz7QAGp6MeQ5ZPyNINN8CTWUJHG2VIOI LjNYVHF8BBRSGVSfIFR+KTs4YjS8IRWhDMhyApI5KZ IBRoCZRCdTMYKGJJvvWqGULx5xWq4HCcP2FCM9uZHzTs0THyV4ZaJzZYdlLXZATc3VgZDgHh6ZKLNdDF m5vmJxzVMxODf7RN8DbLyePFDxA8Ckd8PaAKCrXGPmBD5zukNfITEtJFUlXXMdBTg5FfR7HYMgHCnoYx S8OBEQHmSZQDfVPXFGKDqwIlVZZpe0VOCoXOKgTWQ3 P3LcARXNGJEHYRX7XgdMRYQ7ASChAI8kSI0HlqP5ZMNxXbi3GE1UZyPgH1XeGKGhAoZ2Cs6+DQpzdGFy nAhlDTHALaTpKMQ5TB1QXDSFC6V= ID Date Data Source [id number] 02/12/2020 04:30:00 [place] [address] Patient Name: Piper Licea Exam Date: 02/11/20 : 1970 CC: EKG/ECG in ED Ordering Doctor: Velvet Rosales DO Attending Doctor: Velvet Rosales DO CC: EKG/ECG in ED APPROVED REPORT ECG MEASUREMENT Heart Rate 110 AXES NM 147 P 31 QRSd 141 QRS -42 QT 351 T -3 QTc 416 INTERPRETATION SINUS TACHYCARDIA RIGHT BUNDLE BRANCH BLOCK. NO PRIOR AVAILABLE FOR COMPARISON. <Conclusion> SINUS TACHYCARDIA RIGHT BUNDLE BRANCH BLOCK. NO PRIOR AVAILABLE FOR COMPARISON. End of diagnostic report for accession: [id number] Interpreted: Velvet Rosales DO 09/429 Transcribed: Signed: Velvet Rosales DO 02/12/20430 Interpreted by: Jesse RosalesaTranscribed by: Velvet Rosales Name Value Range Interpretation Code Description Data Geneva rce(s) Supporting Document(s) ID Date Data Source [id number] 02/12/2020 02:20:00 [place] [address] HEALTH INFORMATION MANAGEMENT Consultation : [id number] Signed Patient: Piper Licea Acct:[id number] Unit: [id number] : 1970 Loc: ED Room/Bed: Age/Sex: 49 [...] DAILY 02/12/20 testosterone cypionate 300 mg IM [id number] 02/12/20 Current Visit Medications: Discontinued Medications Generic [...] MPV Gran % (Auto) Lymph % (Auto) [place] % (Auto) Eos % (Auto) Baso % (Auto) Nucleat RBC Rel Count Gran # Lymph # (Auto) [place] # (Auto) Eos # (Auto) Baso # [...] Urine Appearance CLEAR Urine pH 6.0 Specific [place] (Man) 1.008 Urine Protein 30 H Urine [...] 76.7 H Lymph % (Auto) 16.2 L [place] % (Auto) 6.6 Eos % (Auto) 0.0 Baso % (Auto) 0.2 Nucleat RBC Rel Count Not Reportable Gran # 11.18 H Lymph # (Auto) 2.4 [place] # (Auto) 0.96 Eos # (Auto) 0.00 Baso # (Auto) 0.03 Immature Gran # (Auto) 0.1 Absolute Nucleated RBC Not Reportable Immature Gran % 0.3 Sodium Potassium Chloride Carbon Dioxide Anion Gap BUN Creatinine Estimated GFR (MDRD) BUN/Creatinine Ratio Glucose Calcium Total Bilirubin AST ALT Alkaline Phosphatase Total Protein Albumin Globulin Albumin/Globulin Ratio TSH Urine Color Urine Appearance Urine pH Specific [place] (Man) Urine Protein Urine Glucose (UA) Urine [...] with paranoid ideation, [facility]ref[facility] for [facility] formal [facility] and psycho [...] was more than 50% counseling:: Yes Inpatient 33268 Initial INpt- Low (less than/equal 30 minutes): Yes Signed By:Elton Jennings MD <<Signature on File>> Signed Date/Time: 02/12/20533 Co-Signer: Co-Signed Date/Time: Initializing User: Elton Jennings MD [phone] Name Value Range Interpretation Code Description Data Geneva rce(s) Supporting Document(s) ID Date Data Source [id number] 02/12/2020 12:11:00 AM EDT [address] [address] HEALTH INFORMATION MANAGEMENT ED/UC Physician Report : [id number] Signed Patient: Piper Licea Acct:[id number] Unit: [id number] : 1970 Arrival Date: 02/11/20 Age/Sex: 49 [...] for psychiatric evaluation. Patient presents with [facility] police. Patient reportedly has been extremely paranoid [...] DAILY 02/12/20 testosterone cypionate 300 mg IM [id number] 02/12/20 Allergies No Known Allergies Allergy (Unverified [...] able to access the patient's records from [facility]. Patient was admitted there i 2017 for similar symptoms. Patient is from the [facility] and has been admitted multiple times at [facility]. Unfortunately do not have access to those [...] cypionate 200 mg/mL oil 300 mg IM [id number] RF: 0 lisinopril 40 mg tablet 40 mg PO DAILY RF: 0 Referrals: PCP,No [Primary Care Provider] - Date/Time <<Signature on File>> Initializing User: Velvet Rosales DO 02/12/20 0011 Signed by: Velvet Rosales DO 02/12/20 0655 Name Value Range Interpretation Code Description [facility] Supporting Document(s) ID Date Data Source [id number] 02/12/2020 12:17:00 AM EDT [facility] Name Value Range Interpretation Code Description Data Geneva rce(s) Supporting Document(s) COLOR,UR YELLOW YELLOW [facility] APPEARANCE,UR CLEAR CLEAR [facility] PH,UR 6.0 5.0-8.0 [facility] SPECIFIC GRAVITY,UR 1.008 1.002-1.035 [facility] PROTEIN,UR 30 MG/DL NEGATIVE A [facility] GLUCOSE, UR NEGATIVE MG/DL NEGATIVE [facility] KETONES,UR 80 MG/DL NEGATIVE [facility] OCCULT BLOOD,UR NEGATIVE NEGATIVE [facility] NITRATE,UR NEGATIVE NEGATIVE [facility] LEUKOCYTE ESTERASE ,UR NEGATIVE NEGATIVE [facility] BILIRUBIN,UR NEGATIVE NEGATIVE [facility] UROBILINOGEN,UR 0.2-1.0 EU MG/DL NEG-0-1.0 [facility] ID Date Data Source [id number] 02/12/2020 12:24:00 AM EDT [facility] Name Value Range Interpretation Code Description Data Geneva rce(s) Supporting Document(s) OPIATE SCREEN NEG NEGATIVE [facility] Minimum Detectable Limit is 300 ng/mL. BARBITURATE SCREEN NEG NEGATIVE [facility] th Minimum Detectable Limit is 300 ng/mL. PHENCYCLIDINE SCREEN NEG NEGATIVE [facility] Minimum Detectable Limit is 25 ng/mL. AMPHETAMINE SCREEN NEG NEGATIVE [facility] Minimum Detectable Limit is 1000 mg/mL. BENZODIAZEPINE SCREEN POS NEGATIVE [facility] Mininum Detectable Limit is 300 ng/mL. COCAINE SCREEN NEG NEGATIVE [facility] Minimum Detectable Limit is 300 ng/mL. CANNABINOID SCREEN NEG NEGATIVE [facility] Minimum Detectable limit is 50 ng/dL. HEROIN SCREEN NEG NEGATIVE [facility] Minimum Detectable limit is 10 ng/dL. A ll POSITIVE or BORDER results are unconfirmed. Please contact the laboratory if a reference testing confirmation is needed. ID Date Data Source [id number] 02/12/2020 12:21:00 AM EDT [facility] For The Past 12 [...] WHITE BLOOD COUNT 14.58 10^3/uL 4.00-10.50 H [facility] RED BLOOD COUNT 6.19 10^6/uL 4.30-5.80 H [facility] HEMOGLOBIN 18.7 G/DL 13.0-17.5 H [facility] Critical Results for H&H Ratio. Ch ceasar for possible cryoprecipitates. HEMATOCRIT 52.7 % 41.0-53.0 N [facility] MCV 85.1 FL 80.0-100.0 N [facility] MCH 30.2 PG 27.0-34.0 N [facility] MCHC 35.5 G/DL 32-36 N [facility] RDW 13.1 % 11.5-14.5 N [facility] PLATELET COUNT 290 10^3/uL 130-400 N [facility] MPV 10.0 FL 8.7-13.2 N [facility] GRAN % (AUTO) 76.7 % 42.0-75.0 H [facility] LYMPH % (AUTO) 16.2 % 20.0-51.0 L [facility] MONO % (AUTO) 6.6 % 2.0-15.0 N [facility] EOS % (AUTO) 0.0 % 0.0-11.0 N [facility] BASO % (AUTO) 0.2 % 0.0-2.0 N [facility] IG % (AUTO) 0.3 % 1.00-5.00 [facility] IG # (AUTO) 0.1 10^3/uL <0.5 [facility] GRAN # (AUTO) 11.18 10^3/uL 1.50-6.50 [facility] LYMPH # (AUTO) 2.4 k/uL 1.0-5.0 N [facility] MONO # (AUTO) 0.96 k/uL 0.20-1.50 N [facility] EOS # (AUTO) 0.00 10^3/uL 0.00-1.10 N [facility] BASO # (AUTO) 0.03 10^3/uL 0.00-0.20 N [facility] ID Date Data Source [id number] 02/12/2020 12:33:00 AM EDT [facility] Has Patient Fasted For The Past 12 [...] Supporting Document(s) SODIUM 136 MEQ/L 135-145 N [facility] POTASSIUM 4.4 MEQ/L 3.5-5.3 N [facility] CHLORIDE 101 MEQ/L 94-110 N [facility] CARBON DIOXIDE 20 MEQ/L 22-33 L [facility] ANION GAP 19 5-16 H [facility] BLOOD UREA NITRO 7 MG/DL 7-25 N [facility] CREATININE 0.8 MG/DL 0.6-1.4 N [facility] GFR > 90.0 ML/MIN [facility] Stage G1 - Normal or high kidney functi on The GFR is an estimate of the Glomerular Filtration Rate. It is an aid to assess a patient's renal function. It is not a conclusive diagnosis of kidney disease. GFR normal is >=90 The MDRD GFR calculation is considered valid between the ages of 18 and 75 years only. BUN/CREAT RATIO 8 8-36 N [facility] GLUCOSE 119 MG/DL 70-100 H [facility] CA 10.4 MG/DL 8.7-10.5 N [facility] BILIRUBIN,TOTAL 1.1 MG/DL 0.1-1.3 N [facility] AST 39 U/L 5-40 N [facility] ALT 65 U/L 5-48 H [facility] ALKALINE PHOSPHATASE 72 U/L 40-140 [facility] alth TOTAL PROTEIN 7.2 G/DL 5.9-8.3 N [facility] ALBUMIN 5.4 G/DL 3.0-5.1 H [facility] GLOBULIN 1.8 G/DL 1.5-3.5 [facility] ALB/GLOB RATIO 3.0 G/DL 1.0-3.0 [facility] ID Date Data Source [id number] 02/12/2020 12:33:00 AM [facility] Has Patient Fasted For The [...] Supporting Document(s) TSH 2.004 uIU/ML 0.470-4.200 N [facility] Patients should not be tested for 72 ho urs post fluorescein dye angiography. A false depression of result may occur. ID Date Data Source [id number] 02/12/2020 12:33:00 AM [facility] Has Patient Fasted For The [...] Document(s) SALICYLATE < 3.0 MG/DL 2.8-20.0 N [facility] ID Date Data Source [id number] 02/12/2020 12:33:00 AM EDT [facility] Has Patient Fasted For The Past 12 [...] Document(s) ACETAMINOPHEN < 2.0 UG/ML 10-30 [facility] High levels of N-acetylcysteine (used t o treat Acetaminophen overdose) may cause interference and cause a negative bias in the Acetaminophen result. ID Date Data Source [id number] 02/12/2020 12:33:00 AM EDT [facility] Has Patient Fasted For The Past 12 Hour s? N Has Patient Fasted For The Past 12 Hour s? N Has Patient Fasted For The Past 12 Hour s? N Has Patient Fasted For The Past 12 Hour s? N Has Patient Fasted For The Past 12 Hour s? N Name Value Range Interpretation Code Description Data Egne[facility] rce(s) Supporting Document(s) BLOOD ALCOHOL < 0.03 % <0.03 [facility] ID Date Data Source [id number] 02/08/2020 12:11:00 [place] [address] PHONE: [phone] FAX: [phone] Name .................. : NATALIYA [place] Acct Number.................. : [id number] ROOM. ................. : TR-06 MR Number ................... : [id number] Stay type ............. : E/R Discharge Date......... ... : Admit Date ......... : 0 02/07/20 Admit Phys .................... : COONEYNORM Date of ....... : 1970 Family Phys ................... : YONATHAN COR Phone .................. : [phone] Age ................................ : 49 Film# .................. .:[id number] Sex ................................. : M Unsigned transcriptions are preliminary reports and do not represent a medical or legal document CT ABD & PELVIS W/ IV ONLY [id number] COMPLETE:02/07/20 18:42 47318 Reason(s): Pending CMP: Abd pain s/p surgery; [...] versus postoperative change. Page 1 of 2 [facility] [address] [place] [address] [place] [address] PHONE: [phone] FAX: [phone] Name .................. : NATALIYA [place] Acct Number.................. : [id number] ROOM. ................. : TR-06 MR Number ................... : [id number] Stay type ............. : E/R Discharge Date......... ... : Admit Date ......... : 02/07/20 Admit Phys .................... : COSAMY Date of ....... : 1970 Family Phys ................... : YONATHAN GONZALEZ Phone .................. : [phone] Age ................................ : 49 Film# .................. .:[id number] Sex ................................. : M Unsigned transcriptions are preliminary reports and do not represent a medical or legal document CT ABD & PELVIS W/ IV ONLY [id number] COMPLETE:02/07/20 18:42 93001 Reason(s): Pending CMP: Abd pain s/p surgery; [...] rce(s) Supporting Document(s) ID Date Data Source [id number] 02/07/2020 06:08:00 PM EDT [facility] 1 OrderSheet [facility] Emergency Department [address] [place] [address] Phone #: ext- [phone] 02/07/2020 18:07 Patient: [...] IV STAT 18:02/07/2020 20:55 Shivam, [address] [facility] Emergency Department [address] [place] [address] Phone #: ext- [phone] 02/07/2020 18:07 Patient: [...] P.A.-C;EKG 18:42 02/07/2020 18:52 Israel Langley R.N. P.A.-C;[employer] 18:42 02/07/2020 18:52 Shivam(continuous) Israel Yap R.N. P.A.-C;Blood Pressure 18:42 02/07/2020 18:52 Shivam,Monitor Israel Yap R.N. P.A.-C;Pulse oximeter 18:42 02/07/2020 18:52 Shivam(Continuous) Israel Yap R.N. P.A.-C; 3 OrderSheet [facility] Emergency Department [address] [place] [address] Phone #: ext- [phone] 02/07/2020 18:07 Patient: PIPER LICEA Sex: M : 1970 Age: 49y[Electronically signed by Ector Maravilla RN (00:04 02/08/2020)][Electronically signed by Israel PuriAWandy-Meri (10:27 02/08/2020)][Electronically locked by Ector Maravilla RN (00:04 02/08/2020)] Name Value Range Interpretation Code Description Data [place] rce(s) Supporting Document(s) ID Date Data Source [id number] 02/07/2020 06:08:00 PM EDT [facility] 1 Medication Reconciliation Report [facility] Emergency Department [address] [place] [address] Phone #: ext- [phone] 02/07/2020 18:07 Patient: [...] rce(s) Supporting Document(s) ID Date Data Source [id number] 02/07/2020 06:08:00 PM EDT [facility] 1 Medication Administration Record [facility] Emergency Department [address] [place], [place] [id number] Phone #: ext- [phone] 02/07/2020 18:07 Patient: [...] wristStart ROCEPHIN (1GM/50ML) [IVPB] Rocephin (1gm/50mL) IVPB [id number] 02/07/2020 (CEFTRIAXONE SODIUM) mg with Dextrose 50 ml spike Fracisco Rider R.N. Dose: 1 gm IVPB (D5W)---- Rate: 100 mL/hr over 30 minute(s)Stop Dispensed: 50 mL bag22:36 02/07/2020 Site: #1 left Dina Maravilla RN Name Value Range Interpretation Code Description Data Geneva rce(s) Supporting Document(s) ID Date Data Source [id number] 02/07/2020 06:08:00 PM EDT [facility] 1 General Instructions [facility] Emergency Department [address] [place] [address] Phone #: ext- [phone] 02/07/2020 18:07 Patient: [...] or other clear liquids. 2 General Instructions [facility] Emergency Department [address] [place] [address] Phone #: [phone] 02/07/2020 18:07 Patient: PIPER LICEA Sex: M [...] chest, arm, back, neck or jaw pain [id number] [employer]. [address] [place] [address]. All rights reserved. This information is not intended as asubstitute for professional medical care. Always follow your healthcare professional's instructions. You have been given the following additional information: Unknown Causes of Abdominal Pain (Male)(Electronically signed by Israel Puri P.A.-C 02/08/2020 10:27) Name Value Range Interpretation Code Description Data Geneva rce(s) Supporting Document(s) ID Date Data Source [id number] 02/07/2020 06:08:00 PM EDT [facility] 1 Clinical Report - Nurses [facility] Emergency Department [address] [place] [address] Phone #: ext- [phone] 02/07/2020 18:07 Patient: PIPER LICEA Sex: M : 1970 Age: 49yTRIAGEArrived by EMS. Historian: patient.Acuity: LEVEL 3.Chief Complaint: ABDOMINAL PAIN and NAUSEA and (dizzziness).Alert. No acute distress.This started last night. ( patient had a abd hernia repair yesterday by here at [facility]. States painis 04/09, with severe nausea. denies vomiting.). No diarrhea, constipation or fever. 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 No [...] Perez R.N. 2 Clinical Report - Nurses [facility] Emergency Department [address] [place] [address] Phone #: ext- [phone] 02/07/2020 18:07 Patient: [...] acute distress. 3 Clinical Report - Nurses [facility] Emergency Department [address] [place] [address] Phone #: ext- [phone] 02/07/2020 18:07 Patient: PIPER LICEA Sex: M [...] above umbilicus). 4 Clinical Report - Nurses [facility] Emergency De partment [address] [place] [address] Phone #: ext- [phone] 02/07/2020 18:07 Patient: [...] urine. Urine: 5 Clinical Report - Nurses [facility] Emergency Department [address] [place] [address] Phone #: ext- [phone] 02/07/2020 18:07 Patient: [...] rce(s) Supporting Document(s) ID Date Data Source [id number] 02/07/2020 06:08:00 PM EDT [facility] 1 Clinical Report - Physicians/Mid Levels [facility] Emergency Department [address] [place] [address] Phone #: ext- [phone] 02/07/2020 18:07 Patient: [...] ablation. 2 Clinical Report - Physicians/Mid [facility] Emergency Department [address] [place] [address] Phone #: ext- [phone] 02/07/2020 18:07 Patient: [...] PM 3 Clinical Report - Physicians/Mid Levels [facility] Emergency Department [address] [place] [address] Phone #: ext- [phone] 02/07/2020 18:07 Patient: PIPER LICEA Sex: M : 1970 Age: 49y1. No free air or abscess.2.Small flecks of air in an area measuring approximately 1.6 cm just superior to the umbilicus likely.Laboratory Tests:PT/INR: (MARISABEL: 02/07/2020 19:01) ( [facility] [place]/07/[place] 19:35) Final results Test Result Flag Units (Reference) PROTIME 13.3 SECONDS (11.0 - 15.5) INR 1.00 (0.93 - 1.23) \\BLDo\\INR INTERPRETATION\\BLDx\\ Therapeutic range for C jongdin andrelated oral anticoagulants. -International Normalized Ratio (INR): 2.0 - 3.0 for VenousThrombosis, Pulmonary Embolus, Tissue heart valves, Acute FL, Atrial Fibrillation, Valvular heartdisease and recurrent Systemic Embolism. -International Normalized Ratio (INR): 2.5 - 3.5for Mechanical Prosthetic valve.CBC w Diff: (MARISABEL: 02/07/2020 19:01) ( [facility] 02/07/2020 19:57) Final results Test Result Flag [...] % 4 Clinical Report - Physicians/Mid Levels [facility] Emergency Department [address] [place] [address] Phone #: ext- [phone] 02/07/2020 18:07 -------- [...] Male GFR Interprentation 20-49 yrs >60 mL/min Simsms36-29 yrs >56 mL/min Normal 60-69 yrs >49 mL/min Normal 70-79yrs>42 mL/min Normal 80 and above >35 mL/min Normal Female GFRInterpretation 20-39 yrs >60 mL/min Normal 40-49 yrs >58 mL/minNormal 50-59 yrs >51 mL/min Normal 60-69 yrs >45 mL/min Roigmj86-75 yrs >39 mL/min Normal 80 and above >32 mL/min NormalLipase: (MARISABEL: 02/07/2020 19:01) ( [facility] 02/07/2020 20:03) Final results Test Result Flag Units (Reference) LIPASE 22 U/L (13 - 60)Urinalysis: (MARISABEL: 02/07/2020 19:40) ( [facility] [place]07[place] 20:03) Final results [...] Negat 5 Clinical Report - Physicians/Mid Levels [facility] Emergency Department [address] [place] [address] Phone #: ext- [phone] 02/07/2020 18:07 Patient: PIPER LICEA Sex: M : 1970 Age: 49y UROBILINOGEN NOR (less than 1.0 MICROSCOPIC Not Indicate Lactic Acid: (MARISABEL: 02/07/2020 19:01) ( [facility] 02/07/2020 19:19) Final results Test Result Flag Units (Reference) LACTIC ACID 1.5 MMOL/L (0.2 - 2.2) Troponin-T: (MARISABEL: 02/07/2020 19:01) ( [facility] 02/07/2020 19:35) Final results Test Result [...] reval. Penidng resutls. Reviewed results. Contacted surgon concrete paving supervisor (Dr. Meeks); informed of pt, informed that Dr. Richardson had done the surgery yesterday. Sts that not concrete paving supervisor and that Dr. Richardson is covering. Understood [...] and pain meds. Infomred I will review VACUUM DRIER TENDER and agrees. Sts that he will see [...] AM. 6 Clinical Report - Physicians/Mid Levels [facility] Emergency Department [address] [place] [address] Phone #: ext- [phone] 02/07/2020 18:07 Patient: PIPER LICEA Sex: M : 1970 Age: 49yOrdered abx.22:18 02/07/20. Disucssed with attending and she indicates to admit pt for observation and for continued IVabx. ? early infectoion vs post op changes and so soon after surgery (yesterday) It does appears to beworsening; lives by himself. Contacted hospitalist to discuss.Reviewed VACUUM DRIER TENDER.This report was requested by: Israel Puri Reference #: [id number]' PrescriptionsPatient Name: Piper LiceaBirth Date: 1970Address: [address] [place], [place] [address]Nro: MaleRx Written Rx Dispensed Drug Quantity Days Supply Prescriber Name Payment Method Fiogzdwdk67/02/2020 08/10/2019 alprazolam 0.5 mg tablet 30 30 [place], Maryanne [facility]IA [facility] center[facility], [facility] #07/13/2019 alprazolam 0.5 mg tablet 30 30 [place], [facility] FIA [employer] [facility] centerBL[facility]ES, [facility] #07/03/2019 testosterone cyp 200 mg/ml 4ml 30 [facility], [facility], [facility] #06/13/2019 alprazolam 0.5 mg tablet 60 30 [place], [facility] FIA Formula [facility] medical centerCritical Outcome Technologiesjohnson memorial hospitalYatango, [facility] #05/16/2019 alprazolam 0.5 mg tablet 60 30 [place], [facility] [employer] [facility] center[facility], [facility] #11105/02/2019 testosterone cyp 200 mg/ml 4ml 30 Yonathan, Kelli A [facility] [employer] [facility] centerAut[facility], [facility] #11104/20/2019 alprazolam 0.5 mg tablet 60 30 [place], [facility] [employer] [facility] centerCritical Outcome Technologiesjohnson memorial hospitalYatango, [facility] #11003/21/2019 testosterone cyp 200 mg/ml 4ml 30 [facility], [facility], Kelli A [facility] FIA Formula [facility] centerCritical Outcome Technologiesjohnson memorial [email or web address], [facility] #11003/21/2019 alprazolam 0.5 mg tablet 60 30 [place], Maryanne [facility] [employer]IA [employer] [facility] medical centerCritical Outcome Technologiesjohnson memorial [email or web address], [facility] #10902/23/2019 alprazolam 0.5 mg tablet 60 30 [place], [facility] [employer]IA [employer] [facility] medical centerCritical Outcome Technologiesjohnson memorial [email or web address], [facility] #10902/16/2019 testosterone cyp 200 mg/ml 4ml 30 Yonathan, Kelli A [facility] [employer] [facility] centerAutopilot, [facility] #1Patient Name: Piper LiceaBirth Date: 1970Address: [address] [address]Qkh: MaleRx Written Rx Dispensed Drug Quantity Days Supply Prescriber Name Payment Method Netirieff05/25/2020 01/24/2020 alprazolam 0.5 mg tablet 30 30 Joselo shankar [facility], [facility]#01/01/2020 al[facility]olam 0.5 mg tablet 30 [facility] 7 Clinical Report - Physicians/Mid Levels [facility] Emergency Department [address] [place] [address] Phone #: ext- [phone] 02/07/2020 18:07 Patient: PIPER LICEA Sex: M : 1970 Age: 49y 11/29/2019 11/30/2019 alprazolam 0.5 mg tablet 30 30 Jacquelin Erickson MD [facility], [facility] #1 11/29/2019 11/30/2019 testosterone cyp 200 mg/ml 4ml 30 Jacquelin Erickson MD [facility], [facility] #1 10/31/2019 11/02/2019 alprazolam 0.5 mg tablet 30 30 [facility] 10/19/2019 10/24/2019 testosterone cyp 200 mg/ml 4ml 30 Yonathan [facility], [facility] #1 09/04/2019 09/11/2019 alprazolam 0.5 mg tablet 30 30 Maryanne Ashby [facility], [facility] #1 08/21/2019 08/23/2019 testosterone cyp 200 mg/ml 4ml 30 [facility] 22:31 02/07/20. Contact hosptilist and [...] rce(s) Supporting Document(s) ID Date Data Source [id number] 02/08/2020 07:10:00 AM EDT [facility] Name Value Range Interpretation Code Description Data Geneva rce(s) Supporting Document(s) BASIC METABOLIC PANEL [facility] BASIC METABOLIC PANEL Sodium [Moles/volume] in Serum or Plasma 140 mEq/L 134 - 153 [facility] Potassium [Moles/volume] in Serum or Plasma 4.6 mEq/L 3.6 - 5.0 [facility] Chloride [Moles/volume] in Serum or Plasma 105 mEq/L 98 - 107 [facility] Carbon dioxide, total [Moles/volume] in Serum or Plasma 28 MEQ/L 22 - 30 [facility] Glucose [Mass/volume] in Serum or Plasma 79 MG/DL 65 - 110 [facility] BUN 8 MG/DL 7 - 21 [facility] Creatinine [Mass/volume] in Serum or Plasma 0.8 MG/DL 0.7 - 1.5 [facility] BUN/CREAT 10 8 - 27 [facility] Calcium [Mass/volume] in Serum or Plasma 8.8 MG/DL 8.4 - 10.2 [facility] Anion gap 3 in Serum or Plasma 7.0 mmol/L 8.0 - 16.0 L [facility] AGE 49 yrs [facility] al AFR AMER GFR >60 mL/min [facility] NON-AA GFR >60 mL/min [facility] Male GFR Inter prentation [...] >32 mL/min Normal ID Date Data Source [id number] 02/08/2020 06:48:00 AM EDT [facility] Name Value Range Interpretation Code Description Data Geneva rce(s) Supporting Document(s) CBC W/AUTOMATED DIFF [facility] COMPLETE BLOOD COUNT Leukocytes [#/volume] in Blood by Automated count 10.3 10^3/uL 4.2 - 11.0 [facility] Erythrocytes [#/volume] in Blood by Automated count 5.17 10^6/uL 4. 50 - 6.30 [facility] Hemoglobin [Mass/volume] in Blood 15.7 g/dL 14.0 - 16.0 [facility] Hematocrit [Volume Fraction] of Blood by Automated count 45.9 % 4 1.0 - 51.0 [facility] Erythrocyte mean corpuscular volume [Entitic volume] by Auto mated count 88.8 fL 80.0 - 94.0 [facility] Erythrocyte mean corpuscular hemoglobin [Entitic mass] by Automated count 30.4 pg 27.0 - 34.0 [facility] Erythrocyte mean corpuscular hemoglobin concentration [Mass/volume] by Automated count 34.2 g/dL 31.0 - 36.0 [facility] Erythrocyte distribution width [Ratio] by Automated count 13.2 % 11.5 - 14.8 [facility] Platelets [#/volume] in Blood by Automated count 259 10^3/uL 150 - 45 0 [facility] Platelet mean volume [Entitic volume] in Blood by Automated count 9.7 fL 7.4 - 10.4 [facility] Neutrophils/100 leukocytes in Blood by Automated count 48.8 % 37. 0 - 80.0 [facility] Lymphocytes/100 leukocytes in Blood by Manual count 40.7 % 25.0 - 40.0 H [facility] Monocytes/100 leukocytes in Blood by Automated count 9.6 % 3.0 - 8.0 H [facility] Eosinophils/100 leukocytes in Blood by Automated count 0.4 % 0.0 - 7.0 [facility] Basophils/100 leukocytes in Blood by Automated count 0.3 % 0.0 - 2.0 [facility] %IG 0.2 % 0.0 - 0.0 H [facility] al %NRBC 0.0 % 0.0 - 0.0 [facility] al Neutrophils [#/volume] in Blood by Automated count 5.05 10^3/uL 2.00 - 6.90 [facility] Lymphocytes [#/volume] in Blood by Automated count 4.21 10^3/uL 0.60 - 3.40 H [facility] Monocytes [#/volume] in Blood by Automated count 0.99 10^3/uL 0.00 - 0.90 H [facility] Eosinophils [#/volume] in Blood by Automated count 0.04 10^3/uL 0.00 - 0.70 [facility] Basophils [#/volume] in Blood by Automated count 0.03 10^3/uL 0.00 - 0.20 [facility] #IG 0.02 10^3/uL 0.00 - 0.10 [facility] #NRBC 0.00 10^3/uL 0.00 - 0.00 [facility] MANUAL DIFF NOT INDICATED [facility] RBC MORPH NOT INDICATED [facility] ID Date Data Source [id number] 02/07/2020 08:02:00 PM EDT [facility] Name Value Range Interpretation Code Description Data Geneva rce(s) Supporting Document(s) [facility] S[facility] Clean Catch [facility] COLOR yellow NORMAL: Yellow [facility] CLARITY clear NORMAL: Clear [facility] Specific gravity of Urine by Test strip 1.005 1.001 - 1.030 [facility] pH 7 5 - 9 [facility] Glucose [Mass/volume] in Urine by Test strip NORM NORMAL: [facility]at [facility] Bilirubin.total [Presence] in Urine by Test strip NEG NORMAL: Negative [facility] Ketones [Presence] in Urine by Test strip 5 NORMAL: Negative A [facility] Protein [Mass/volume] in Urine by Test strip NEG NORMAL: Negat [facility] Nitrite [Presence] in Urine by Test strip NEG NORMAL: Negative [facility] BLOOD NEG NORMAL: Negative [facility] Leukocyte esterase [Presence] in Urine by Test strip NEG PHILLIP L: Negative [facility] Urobilinogen [Mass/volume] in Urine by Test strip NOR less ani n 1.0 mg/dL [facility] MICROSCOPIC Not Indicate [facility] ospital ID Date Data Source [id number] 02/14/2020 06:37:00 AM EDT [facility] [id number] STAIN = GRAM POSITIVE SHAISTA CI IN KNZUTVAZ29/11/20 1137 CALLED TO BYRON Husain BY LAMINE, RESULTS READ BACK02/14/20 0636 CALLED TO NANETTE Sanchez BY LAMINE, RESULTS READBACKMICROCOCCUS & RELATED SPECIES Name Value Range Interpretation Code Description Data Geneva rce(s) Supporting Document(s) Bacteria identified in Blood by Culture [facility] NO GROWTH AFTER 5 DAYS ID Date Data Source [id number] 02/09/2020 11:39:00 AM EDT [facility] 02/09/20 1137 CALLED TO BYRON Husain BY KARL Magaña, RESULTS READ BACKThe SynthaceArray BCID Panel is a qualitative multiplexednucleic acid-based [...] rce(s) Supporting Document(s) ID Date Data Source [id number] 02/14/2020 11:42:00 AM EDT [facility] Name Value Range Interpretation Code Description Data Geneva rce(s) Supporting Document(s) CULTURE BLOOD [facility] _CULTURE BLOOD_{ PRELIM GROWTH OF GRAM POSITIVE COCCI IN CLUSTERS TEST PERFORMED AT [address] [address] CLIA# [id number] SEE SCANNED REPORTCALLED T0 REINIER ON AIU 02/09/20 1145 CM ID Date Data Source [id number] 02/07/2020 08:03:00 PM EDT [facility] Name Value Range Interpretation Code Description Data Geneva rce(s) Supporting Document(s) Lipase [Enzymatic activity/volume] in Serum or Plasma 22 U/L 13 - 60 [facility] ID Date Data Source [id number] 02/07/2020 08:03:00 PM EDT [facility] Name Value Range Interpretation Code Description Data Geneva rce(s) Supporting Document(s) COMPREHENSIVE METABOLIC PANEL [facility] COMPREHENSIVE METABOLIC PANEL Sodium [Moles/volume] in Serum or Plasma 133 mEq/L 134 - 153 L [facility] Potassium [Moles/volume] in Serum or Plasma 3.7 mEq/L 3.6 - 5.0 [facility] Chloride [Moles/volume] in Serum or Plasma 96 mEq/L 98 - 107 L [facility] Carbon dioxide, total [Moles/volume] in Serum or Plasma 23 MEQ/L 22 - 30 [facility] Glucose [Mass/volume] in Serum or Plasma 99 MG/DL 65 - 110 [facility] BUN 8 MG/DL 7 - 21 [facility] Creatinine [Mass/volume] in Serum or Plasma 0.7 MG/DL 0.7 - 1.5 [facility] BUN/CREAT 11 8 - 27 [facility] Protein [Mass/volume] in Serum or Plasma 6.0 G/DL 6.3 - 8.2 L [facility] Albumin [Mass/volume] in Serum or Plasma 4.5 G/DL 3.9 - 5.0 [facility] Globulin [Mass/volume] in Serum by calculation 1.5 GM/DL 2.4 - 3.2 L [facility] A/G RATIO 3.0 0.8 - 2.0 H [facility] Calcium [Mass/volume] in Serum or Plasma 9.4 MG/DL 8.4 - 10.2 [facility] Bilirubin.total [Mass/volume] in Serum or Plasma <0.7 MG/DL 0.2 - 1.3 [facility] Alkaline phosphatase [Enzymatic activity/volume] in Serum or Plasma 56 U/L 38 - 126 [facility] Aspartate aminotransferase [Enzymatic activity/volume] in Serum or Plasma 26 U/L 5 - 40 [facility] Alanine aminotransferase [Enzymatic activity/volume] in Seru m or Plasma 25 U/L 7 - 56 [facility] Anion gap 3 in Serum or Plasma 14.0 mmol/L 8.0 - 16.0 [facility] AGE 49 yrs [facility] NON-AA GFR >60 mL/min [facility] ital AFR AMER GFR >60 mL/min [facility] Male GFR In terprentation [...] >32 mL/min Normal ID Date Data Source [id number] 02/07/2020 07:56:00 PM EDT [facility] Name Value Range Interpretation Code Description Data Geneva rce(s) Supporting Document(s) CBC W/AUTOMATED DIFF [facility] COMPLETE BLOOD COUNT Leukocytes [#/volume] in Blood by Automated count 12.4 10^3/uL 4.2 - 11.0 H [facility] Erythrocytes [#/volume] in Blood by Automated count 5.27 10^6/uL 4. 50 - 6.30 [facility] Hemoglobin [Mass/volume] in Blood 16.1 g/dL 14.0 - 16.0 H [facility] Hematocrit [Volume Fraction] of Blood by Automated count 45.9 % 4 1.0 - 51.0 [facility] Erythrocyte mean corpuscular volume [Entitic volume] by Auto mated count 87.1 fL 80.0 - 94.0 [facility] Erythrocyte mean corpuscular hemoglobin [Entitic mass] by Automated count 30.6 pg 27.0 - 34.0 [facility] Erythrocyte mean corpuscular hemoglobin concentration [Mass/volume] by Automated count 35.1 g/dL 31.0 - 36.0 [facility] Erythrocyte distribution width [Ratio] by Automated count 13.0 % 11.5 - 14.8 [facility] Platelets [#/volume] in Blood by Automated count 245 10^3/uL 150 - 45 0 [facility] Platelet mean volume [Entitic volume] in Blood by Automated count 10.2 fL 7.4 - 10.4 [facility] Neutrophils/100 leukocytes in Blood by Automated count 61.3 % 37. 0 - 80.0 [facility] Lymphocytes/100 leukocytes in Blood by Manual count 28.6 % 25.0 - 40.0 [facility] Monocytes/100 leukocytes in Blood by Automated count 9.5 % 3.0 - 8.0 H [facility] Eosinophils/100 leukocytes in Blood by Automated count 0.2 % 0.0 - 7.0 [facility] 0.2 %IG 0.2 % 0.0 - 0.0 H [facility] %NRBC 0.0 % 0.0 - 0.0 [facility] Neutrophils [#/volume] in Blood by Automated count 7.58 10^3/uL 2.00 - 6.90 H [facility] Lymphocytes [#/volume] in Blood by Automated count 3.53 10^3/uL 0.60 - 3.40 H [facility] Monocytes [#/volume] in Blood by Automated count 1.18 10^3/uL 0.00 - 0.90 H [facility] Eosinophils [#/volume] in Blood by Automated count 0.02 10^3/uL 0.00 - 0.70 [facility] Basophils [#/volume] in Blood by Automated count 0.02 10^3/uL 0.00 - 0.20 [facility] #IG 0.03 10^3/uL 0.00 - 0.10 [facility] #NRBC 0.00 10^3/uL 0.00 - 0.00 [facility] MANUAL DIFF SEE BELOW [facility] Segmented neutrophils/100 leukocytes in Blood by Manual count 63 % 37 - 80 [facility] BAND 0 % 0 - 5 [facility] %LYMPH 27 % 25 - 40 [facility] %MONO 10 % 3 - 8 H [facility] %EOS 0 % 0 - 7 [facility] 0 Metamyelocytes/100 leukocytes in Blood by Manual count 0 % [facility] Myelocytes/100 leukocytes in Blood by Manual count 0 % [facility] Promyelocytes/100 leukocytes in Blood by Manual count 0 % [facility] Blasts/100 leukocytes in Blood by Manual count 0 % [facility] SAMANTHA LYM 0 % [facility] Nucleated erythrocytes/100 erythrocytes in Blood by Manual count 0 % [facility] RBC MORPH NOT INDICATED [facility] ID Date Data Source [id number] 02/07/2020 07:35:00 PM EDT [facility] Name Value Range Interpretation Code Description Data Geneva rce(s) Supporting Document(s) TROPONIN T <0.01 NG/ML 0.00 - 0.10 [facility] TROPONIN T0.1 ng/ml Recommended as the c linical threshold value forTroponin T. ID Date Data Source [id number] 02/07/2020 07:35:00 PM EDT [facility] Name Value Range Interpretation Code Description Data Geneva rce(s) Supporting Document(s) Prothrombin time (PT) 13.3 SECONDS 11.0 - 15.5 [facility] INR in Platelet poor plasma by Coagulation assay 1.00 0.93 - 1. 23 [facility] \\BLDo\\INR INTERPRETATION\\BLDx\\ Therapeutic range for Coumadin and related oral anticoagulants. - International Normalized Ratio (INR): 2.0 - 3.0 for Venous Thrombosis, Pulmonary Embolus, Tissue heart valves, Acute FL, Atrial Fibrillation, Valvular heart disease and recurrent Systemic Embolism. -International Normalized Ratio (INR): 2.5 - 3.5 for Mechanical Prosthetic valve. ID Date Data Source [id number] 02/07/2020 07:19:00 PM EDT [facility] Name Value Range Interpretation Code Description Data Geneva rce(s) Supporting Document(s) Lactate [Moles/volume] in Serum or Plasma 1.5 MMOL/L 0.2 - 2.2 [facility] ID Date Data Source [id number] 02/14/2020 11:41:00 AM EDT [facility] Name Value Range Interpretation Code Description Data Geneva rce(s) Supporting Document(s) CULTURE BLOOD [facility] stephanie _CULTURE BLOOD_ [place] [address] CLIA# [id number] SEE SCANNED REPORT{ PRELIM ID Date Data Source [id number] 02/06/2020 03:23:00 PM EDT [facility] Name Value Range Interpretation Code Description Data Geneva rce(s) Supporting Document(s) SARS coronavirus 2 RNA [facility] This lab was ordered by [facility] Tien brown and reported by [facility]. ID Date Data Source [id number] 02/08/2020 11:21:00 AM EDT [facility] Name Value Range Interpretation Code Description Data Geneva rce(s) Supporting Document(s) SARS-CoV-2, RICARDO Not Detected Not Detected [facility] This nucleic acid amplification test was developed and its performancecharacteristics determined by [facility]. Nucleic acidamplification tests include PCR and TMA. [...] in this assay. ID Date Data Source [id number] 02/06/2020 04:03:00 PM EDT [facility] Name Value Range Interpretation Code Description Data Geneva e(s) Supporting Document(s) Sodium [Moles/volume] in Serum or Plasma 135 mEq/L 134 - 153 [facility] Potassium [Moles/volume] in Serum or Plasma 4.2 mEq/L 3.6 - 5.0 [facility] Chloride [Moles/volume] in Serum or Plasma 98 mEq/L 98 - 107 [facility] Carbon dioxide, total [Moles/volume] in Serum or Plasma 27 MEQ/L 22 - 30 [facility] ID Date Data Source [id number] 02/06/2020 03:33:00 PM EDT [facility] Name Value Range Interpretation Code Description Data Geneva rce(s) Supporting Document(s) CBC NO DIFF [facility] ital COMPLETE BLOOD COUNT Leukocytes [#/volume] in Blood by Automated count 8.8 10^3/uL 4.2 - 1 1.0 [facility] Erythrocytes [#/volume] in Blood by Automated count 5.38 10^6/uL 4. 50 - 6.30 [facility] Hemoglobin [Mass/volume] in Blood 16.5 g/dL 14.0 - 16.0 H [facility] Hematocrit [Volume Fraction] of Blood by Automated count 47.8 % 4 1.0 - 51.0 [facility] Erythrocyte mean corpuscular volume [Entitic volume] by Auto mated count 88.8 fL 80.0 - 94.0 [facility] Erythrocyte mean corpuscular hemoglobin [Entitic mass] by Automated count 30.7 pg 27.0 - 34.0 [facility] Erythrocyte mean corpuscular hemoglobin concentration [Mass/volume] by Automated count 34.5 g/dL 31.0 - 36.0 [facility] Erythrocyte distribution width [Ratio] by Automated count 13.2 % 11.5 - 14.8 [facility] Platelets [#/volume] in Blood by Automated count 240 10^3/uL 150 - 45 0 [facility] Platelet mean volume [Entitic volume] in Blood by Automated count 9.6 fL 7.4 - 10.4 [facility] ID Date Data Source [id number] 02/05/2020 11:46:00 PM EDT [facility] [address] [place] [address] [phone] NAME SEX PT STATUS ACCOUNT NUMBER PIPER LICEA [facility] [id number] ORDERING PHYSICIAN LOCATION MEDICAL RECORD NO. Skip Rutherford MD ER [id number] ATTENDING PHYSICIAN DATE OF DATE OF EXAM/TIME [...] 0907- 0012: Total DLP = 1145.00 mGy-cm 6846-8139: Total Radiation Dose = 17.1750 mSv Lifetime Dose: 17.1750 mSv Name Value Range Interpretation Code Description Data Geneva rce(s) Supporting Document(s) ID Date Data Source [id number] 02/05/2020 09:45:00 PM EDT [facility] Special Instructions: Lab may order repe at test if initial test elevatedPhysician If elevated, reflex second test in 4-6 hrs Name Value Range Interpretation Code Description Data Geneva rce(s) Supporting Document(s) Leukocytes [#/volume] in Blood by Automated count 9.0 10*3/uL 4.45-10 .71 N [facility] Erythrocytes [#/volume] in Blood by Automated count 5.38 10*6/uL 4.3- 6.1 N [facility] Hemoglobin [Moles/volume] in Blood 16.6 g/dL 13-18 N [facility] Hematocrit [Volume Fraction] of Blood by Automated count 47.1 % 4 2-52 N [facility] Erythrocyte mean corpuscular volume [Ent itic volume] in Cord blood by Automated count 87.5 fL 80-96 N [facility] ital Erythrocyte mean corpuscular hemoglobin [Entitic mass] by Automated count 30.9 pg 27-31 N [facility] l Erythrocyte mean corpuscular hemoglobin concentration [Mass/volume] in Cord blood 35.2 g/dL 33-37 N [facility] ital Erythrocyte distribution width [Entitic volume] by Automated count 13 % 11-15 N [facility] Platelets [#/volume] in Blood by Automated count 246 10*3/uL 130-472 N [facility] Platelet mean volume [Entitic volume] in Blood 9.5 fL 9.1-13.1 N [facility] Neutrophils/100 leukocytes in Blood by Automated count 55.4 % 41- 77 N [facility] Neutrophils [#/volume] in Blood by Automated count 5.0 U 1.7-7.6 N [facility] Lymphocytes/100 leukocytes in Blood by Automated count 36.9 % 14- 46 N [facility] Lymphocytes [#/volume] in Blood by Automated count 3.3 U 0.6-4.6 N [facility] Monocytes/100 leukocytes in Blood by Automated count 6.6 % 4-12 N [facility] Monocytes [#/volume] in Blood by Automated count 0.6 U 0.2-1.2 N [facility] Eosinophils/100 leukocytes in Blood by Automated count 0.6 % 0-7 N [facility] Eosinophils [#/volume] in Blood by Automated count 0.1 U 0.0-0.5 N [facility] Basophils/100 leukocytes in Blood by Automated count 0.3 % 0.4-1.3 Below low normal [facility] Basophils [#/volume] in Blood by Automated count 0.0 U 0.0-0.2 N [facility] NUCLEATED RED BLOOD CELL 0 % [facility] NUCLEATED RED BLOOD CELL# 0 U [facility] Immature granulocytes [Presence] in Blood by Automated count 0-2 N [facility] Immature granulocytes [#/volume] in Blood by Automated count 0.0 U 0-0.1 [facility] Manual Differential panel - Blood NO [facility] ID Date Data Source [id number] 02/05/2020 10:07:00 PM EDT [facility] Special Instructions: Lab may order repe at test if initial test elevatedPhysician If elevated, reflex second test in 4-6 hrs Name Value Range Interpretation Code Description Data Geneva rce(s) Supporting Document(s) Prothrombin Time (Patient) 11.2 s 9.6-12.3 [facility] INR 1.1 0.9-1.1 [facility] THE INR IS OPERATIONALLY DEFINED FOR GILMA SH PLASMA FROMPATIENTS STABILIZED ON ORAL ANTICOAGULANTS.ROUTINE ANTICOAGULANT THERAPY 2.0-3.0RECURRENT SYSTEMIC EMBOLISM/HEART VALVE REPLACEMENT 2.5-3.5 aPTT.lupus sensitive (LA screen) 26.4 s 22.7-31.6 [facility] ID Date Data Source [id number] 02/05/2020 10:19:00 PM EDT [facility] Special Instructions: Lab may order repe at test if initial test elevatedPhysician If elevated, reflex second test in 4-6 hrs Name Value Range Interpretation Code Description Data Geneva rce(s) Supporting Document(s) Lactic w Rfx (if elevated) 0.8 mmol/L 0.5-2.2 [facility] ID Date Data Source [id number] 02/05/2020 10:19:00 PM EDT [facility] Special Instructions: Lab may order repe at test if initial test elevatedPhysician If elevated, reflex second test in 4-6 hrs Name Value Range Interpretation Code Description Data [place] rce(s) Supporting Document(s) Urea nitrogen [Mass/volume] in Serum or Plasma 8 mg/dL 9-23 Below low normal [facility] Sodium [Moles/volume] in Serum or Plasma 137 mmol/L 132-146 N [facility] Potassium [Moles/volume] in Serum or Plasma 3.7 mmol/L 3.5-5.5 [facility] Chloride [Moles/volume] in Serum or Plasma 105 mmol/L 99-109 [facility] Carbon dioxide, total [Moles/volume] in Serum or Plasma 25 mmol/L 20 -31 [facility] Anion gap in Serum or Plasma 11 mmol/L 8-16 [facility] Glucose [Mass/volume] in Serum or Plasma 92 mg/dL 74-106 N [facility] Creatinine 0.7 mg/dL 0.5-1.1 [facility] Glomerular filtration rate/1.73 sq M.pre dicted [Volume Rate/Area] in Serum or Plasma Greater Than 60 ABOVE 60 [facility] Alanine aminotransferase [Enzymatic acti vity/volume] in Serum or Plasma by With P-5'-P 36 U/L 10-49 [facility] ital Aspartate aminotransferase [Enzymatic ac tivity/volume] in Serum or Plasma by With P-5'-P 22 U/L 0-33 N [facility] pital Alkaline phosphatase [Enzymatic activity/volume] in Serum or Plasma 55 U/L 45-129 N [facility] Calcium [Mass/volume] in Serum or Plasma 9.4 mg/dL 8.5-10.1 [facility] Bilirubin.total [Mass/volume] in Serum or Plasma 0.7 mg/dL 0.3-1.2 [facility] Albumin [Mass/volume] in Serum or Plasma by Bromocresol purple (BCP) dye binding method 3.9 g/dL 3.2-4.8 N [facility] ital Protein [Mass/volume] in Serum or Plasma 6.6 g/dL 5.7-8.2 N [facility] ID Date Data Source [id number] 02/05/2020 09:19:00 PM EDT [facility] ED Physician Documentation NAME: PIPER LICEA : 1970 AGE: 49 MR#: [id number] SERVICE DATE: 02/05/[address]: Skip Rutherford MD PRIMARY CARE DR: Kelli Mcmanus ROOM#: HPI (Adult, General) General Chief Complaint: GI Stated Complaint: ABD PAIN, BACK PAIN Resident [facility], travel outisde home, exposure to hot [...] Appearance Clear, Urine pH 7.0, Ur Specific [place] 1.008,Urine Protein Negative, Urine Ketones Trace A, [...] % (Auto) 55.4, Lymph % (Auto) 36.9, [place] % (Auto) 6.6, Eos % (Auto) 0.6, Baso % (Auto) 0.3 L, Lymph # (Auto) 3.3, Abs Immat Gran (auto) 0.0, Add Manual Diff No, Absolute Neutrophils 5.0, Monocytes # 0.6, Absolute Eosinophils 0.1, Absolute Basophils 0.0 02/05/20 21:35: PT 11.2, INR 1.1, PTT ([place]) 26.4 02/05/20 21:35: Sodium 137, Potassium 3.7, [...] rce(s) Supporting Document(s) ID Date Data Source [id number] 02/05/2020 10:00:00 PM EDT [facility] Reason for ordering culture: Abnormal fi ndings UAMethod of Collection:: Voided Name Value Range Interpretation Code Description Data Geneva rce(s) Supporting Document(s) Color of Urine [facility] Appearance of Urine CLEAR [facility] pH of Urine by Test strip 7.0 5-8 [facility] Specific gravity of Urine by Refractometry 1.008 1.005-1.030 [facility] Leukocyte esterase [Presence] in Urine by Test strip NEGAT JALEN [facility] Nitrite [Presence] in Urine by Test strip NEGATIVE [facility] Protein [Presence] in Urine by Test strip NEGATIVE [facility] Glucose [Mass/volume] in Urine by Automated test strip NEGATIVE NEG ATIVE [facility] Ketones [Presence] in Urine by Test strip NEGATI VE Abnormal (applies to non- numeric results) [facility] Urobilinogen [Presence] in Urine 0.2-1 EU/dl [facility] Bilirubin.total [Presence] in Urine by Automated test strip NEGATIVE [facility] Erythrocytes [#/volume] in Urine by Test strip NEGATIVE NEGATIVE [facility] URINE MICROSCOPIC? (CIF) NO [facility] ID Date Data Source [id number] 02/01/2020 03:30:00 PM EDT [facility] Name Value Range Interpretation Code Description Data [place] rce(s) Supporting Document(s) Leukocytes [#/volume] in Blood by Automated count 10.0 10*3/uL 4.45-1 0.71 N [facility] Erythrocytes [#/volume] in Blood by Automated count 5.61 10*6/uL 4.3- 6.1 N [facility] Hemoglobin [Moles/volume] in Blood 17.4 g/dL 13-18 N [facility] Hematocrit [Volume Fraction] of Blood by Automated count 48.4 % 4 2-52 N [facility] Erythrocyte mean corpuscular volume [Ent itic volume] in Cord blood by Automated count 86.3 fL 80-96 N [facility] ital Erythrocyte mean corpuscular hemoglobin [Entitic mass] by Automated count 31.0 pg 27-31 [facility] Erythrocyte mean corpuscular hemoglobin concentration [Mass/volume] in Cord blood 36.0 g/dL 33-37 N [facility] ital Erythrocyte distribution width [Entitic volume] by Automated count 13 % 11-15 N [facility] Platelets [#/volume] in Blood by Automated count 256 10*3/uL 130-472 N [facility] Platelet mean volume [Entitic volume] in Blood 9.5 fL 9.1-13.1 N [facility] Neutrophils/100 leukocytes in Blood by Automated count 55.4 % 41- 77 N [facility] Neutrophils [#/volume] in Blood by Automated count 5.6 U 1.7-7.6 N [facility] Lymphocytes/100 leukocytes in Blood by Automated count 35.2 % 14- 46 N [facility] Lymphocytes [#/volume] in Blood by Automated count 3.5 U 0.6-4.6 N [facility] Monocytes/100 leukocytes in Blood by Automated count 8.5 % 4-12 N [facility] Monocytes [#/volume] in Blood by Automated count 0.9 U 0.2-1.2 N [facility] Eosinophils/100 leukocytes in Blood by Automated count 0.5 % 0-7 N [facility] Eosinophils [#/volume] in Blood by Automated count 0.1 U 0.0-0.5 N [facility] Basophils/100 leukocytes in Blood by Automated count 0.3 % 0.4-1.3 Below low normal [facility] Basophils [#/volume] in Blood by Automated count 0.0 U 0.0-0.2 N [facility] NUCLEATED RED BLOOD CELL 0 % [facility] NUCLEATED RED BLOOD CELL# 0 U [facility] Immature granulocytes [Presence] in Blood by Automated count 0-2 N [facility] Immature granulocytes [#/volume] in Blood by Automated count 0.0 U 0-0.1 N [facility] Manual Differential panel - Blood NO [facility] ID Date Data Source [id number] 02/01/2020 03:59:00 PM EDT [facility] Name Value Range Interpretation Code Description Data Geneva rce(s) Supporting Document(s) Urea nitrogen [Mass/volume] in Serum or Plasma 6 mg/dL 9-23 Below low normal [facility] Sodium [Moles/volume] in Serum or Plasma 134 mmol/L 132-146 [facility] Potassium [Moles/volume] in Serum or Plasma 4.0 mmol/L 3.5-5.5 [facility] Chloride [Moles/volume] in Serum or Plasma 101 mmol/L 99-109 [facility] Carbon dioxide, total [Moles/volume] in Serum or Plasma 28 mmol/L 20 -31 [facility] Anion gap in Serum or Plasma 9 mmol/L 8-16 N [facility] Glucose [Mass/volume] in Serum or Plasma 92 mg/dL 74-106 N [facility] Creatinine 0.9 mg/dL 0.5-1.1 [facility] Glomerular filtration rate/1.73 sq M.pre dicted [Volume Rate/Area] in Serum or Plasma Greater Than 60 ABOVE 60 [facility] Calcium [Mass/volume] in Serum or Plasma 9.9 mg/dL 8.5-10.1 N [facility] ID Date Data Source [id number] 02/01/2020 02:32:00 PM EDT [facility] Name: PIPER LICEA : 1970 Age: 49 MR#: [id number] Admit Date: 02/01/20 Provider: Naveed Hannon MD [...] pt states has had hernia x 4yrs Lsat Instructor Required: No Is patient in pain?: No [...] Screening Screening Have you traveled outside of [facility] or [facility] in the last 14 days.: No Has [...] hernia without obstruction or gangrene SNOMED Code(s): 462199843 Category: Surgical Dictated by: <Electronically signed by Naveed Hannon > Naveed Hannon 02/01/201939 Naveed Hannon SIGNATURE DA Report Cosigners: D: ROBINSON 02/01/20 143 T: HARRIS 02/01/20 143 CC: Name Value Range Interpretation Code Description Data [place] rce(s) Supporting Document(s) ID Date Data Source [id number] 12/20/2019 10:21:00 AM EDT [facility] Patient Name: PIPER LICEA DO B: 1970 Sex: M Pt Unit #: [id number] Location:[facility] Provider: Visit Date/Time: 12/20/19 Primary Insurance: Files[employer] Secondary Insurance: Self Pay Intake Vital Signs [...] mole. But has changed and came back. [employer] added another nasal spray with flonase but [...] Screening Screening Have you traveled outside of [facility] or [facility] in the last 14 days.: No Has patient experienced [facility]: [facility] (Updated 12/20/19 @ 10:22 [...] Other: Right upper chest/shoulder region. 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 On top of this is a triple nodule raised darker brown nevi. Non-tender. Assessment Plan Assessment Plan (1) Suspicious nevus: Status: Acute Comment: Referred to derm for biopsy. Code(s): D22.9 - Melanocytic nevi, unspecified SNOMED Code(s): 686063006 Category: Medical Orders: Referrals: Dermatology Referral Orders Other Medications: New: fluticasone propionate 50 mcg/actuation (Flonase Allergy Relief) administer into each nostril 2 sprays intranasal QDAY 1 unit 5RF Electronically Signed By: <Electronically signed by Kelli Mcmanus NP> Date/Time Signed: 12/20/19 1051 Name Value Range Interpretation Code Description Data [place] rce(s) Supporting Document(s) ID Date Data Source [id number] 10/19/2019 09:57:00 AM EDT [facility] Patient Name: PIPER LICEA DO B: 1970 Sex: M Pt Unit #: [id number] Location:[facility] Provider: Visit Date/Time: 10/19/19 Primary Insurance: Files[employer] Secondary Insurance: Self Pay Intake Vital Signs [...] Pt would like to be referred to safety supervisor for testing. Pt requests a sleep study. He wakes up a lot during the night , tired throughout the day and last night he felt like he could not breathe. 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 He is taking 2 allergy medications already at this point. Testing may be helpful, possible serum injections. (2) Umbilical hernia: Status: Acute Comment: Referral to gen surg. Code(s): K42.9 - Umbilical hernia without obstruction or gangrene SNOMED Code(s): 708515119 Category: Medical Orders: Referrals: General Surgery Referral (3) Sleep apnea: Status: Acute Comment: Referred for sleep study and possible CPAP fitting Code(s): G47.30 - Sleep apnea, unspecified SNOMED Code(s): 92980302 Category: Medical Electronically Signed By: <Electronically signed by eKlli Mcmanus NP> Date/Time Signed: 10/19/19 1037 Name Value Range Interpretation Code Description Data [place] rce(s) Supporting Document(s) ID Date Data Source [id number] 07/31/2019 11:34:00 AM EST [facility] Method of Collection:: Voided Name Value Range Interpretation Code Description Data [place] rce(s) Supporting Document(s) Color of Urine [facility] Appearance of Urine CLEAR [facility] pH of Urine by Test strip 8.0 5-8 [facility] Specific gravity of Urine by Refractometry 1.022 1.005-1.030 [facility] Leukocyte esterase [Presence] in Urine by Test strip NEGAT JALEN [facility] Nitrite [Presence] in Urine by Test strip NEGATIVE [facility] Protein [Presence] in Urine by Test strip NEGATIVE [facility] Glucose [Mass/volume] in Urine by Automated test strip NEGATIVE NEG ATIVE [facility] Ketones [Presence] in Urine by Test strip NEGATIVE [facility] Urobilinogen [Presence] in Urine 0.2-1 EU/dl [facility] Bilirubin.total [Presence] in Urine by Automated test strip NEGATIVE [facility] Erythrocytes [#/volume] in Urine by Test strip NEGATIVE NEGATIVE [facility] URINE MICROSCOPIC ADDED NO [facility] ID Date Data Source [id number] 07/31/2019 11:39:00 AM EST [facility] Method of Collection:: Voided Name Value Range Interpretation Code Description Data [place] rce(s) Supporting Document(s) Leukocytes [#/volume] in Blood by Automated count 7.7 10*3/uL 4.45-10 .71 N [facility] Erythrocytes [#/volume] in Blood by Automated count 5.92 10*6/uL 4.3- 6.1 N [facility] Hemoglobin [Moles/volume] in Blood 17.9 g/dL 13-18 N [facility] Hematocrit [Volume Fraction] of Blood by Automated count 51.5 % 4 2-52 N [facility] Erythrocyte mean corpuscular volume [Ent itic volume] in Cord blood by Automated count 87.0 fL 80-96 N [facility] ital Erythrocyte mean corpuscular hemoglobin [Entitic mass] by Automated count 30.2 pg 27-31 N [facility] l Erythrocyte mean corpuscular hemoglobin concentration [Mass/volume] in Cord blood 34.8 g/dL 33-37 N [facility] ital Erythrocyte distribution width [Entitic volume] by Automated count 13 % 11-15 N [facility] Platelets [#/volume] in Blood by Automated count 239 10*3/uL 130-472 N [facility] Platelet mean volume [Entitic volume] in Blood 9.9 fL 9.1-13.1 N [facility] Neutrophils/100 leukocytes in Blood by Automated count 58.8 % 41- 77 N [facility] Neutrophils [#/volume] in Blood by Automated count 4.5 U 1.7-7.6 N [facility] Lymphocytes/100 leukocytes in Blood by Automated count 32.6 % 14- 46 N [facility] Lymphocytes [#/volume] in Blood by Automated count 2.5 U 0.6-4.6 N [facility] Monocytes/100 leukocytes in Blood by Automated count 7.8 % 4-12 N [facility] Monocytes [#/volume] in Blood by Automated count 0.6 U 0.2-1.2 N [facility] Eosinophils/100 leukocytes in Blood by Automated count 0.6 % 0-7 N [facility] Eosinophils [#/volume] in Blood by Automated count 0.1 U 0.0-0.5 N [facility] Basophils/100 leukocytes in Blood by Automated count 0.1 % 0.4-1.3 Below low normal [facility] Basophils [#/volume] in Blood by Automated count 0.0 U 0.0-0.2 N [facility] NUCLEATED RED BLOOD CELL 0 % [facility] [facility] NUCLEATED RED BLOOD CELL# 0 U [facility] Immature granulocytes [Presence] in Blood by Automated count 0-2 N [facility] Immature granulocytes [#/volume] in Blood by Automated count 0.0 U 0-0.1 N [facility] Manual Differential panel - Blood NO [facility] ID Date Data Source [id number] 07/31/2019 12:13:00 PM EST [facility] Method of Collection:: Voided Name Value Range Interpretation Code Description Data Geneva rce(s) Supporting Document(s) Urea nitrogen [Mass/volume] in Serum or Plasma 17 mg/dL 9-23 [facility] Sodium [Moles/volume] in Serum or Plasma 138 mmol/L 132-146 [facility] Potassium [Moles/volume] in Serum or Plasma 4.5 mmol/L 3.5-5.5 [facility] Chloride [Moles/volume] in Serum or Plasma 105 mmol/L 99-109 [facility] Carbon dioxide, total [Moles/volume] in Serum or Plasma 28 mmol/L 20 -31 [facility] Anion gap in Serum or Plasma 10 mmol/L 8-16 [facility] Glucose [Mass/volume] in Serum or Plasma 97 mg/dL 74-106 [facility] Creatinine 0.9 mg/dL 0.5-1.1 [facility] Glomerular filtration rate/1.73 sq M.pre dicted [Volume Rate/Area] in Serum or Plasma Greater Than 60 ABOVE 60 [facility] Alanine aminotransferase [Enzymatic acti vity/volume] in Serum or Plasma by With P-5'-P 44 U/L 10-49 N [facility] ital Aspartate aminotransferase [Enzymatic ac tivity/volume] in Serum or Plasma by With P-5'-P 20 U/L 0-33 [facility] pital Alkaline phosphatase [Enzymatic activity/volume] in Serum or Plasma 63 U/L 45-129 [facility] Calcium [Mass/volume] in Serum or Plasma 9.1 mg/dL 8.5-10.1 N [facility] Bilirubin.total [Mass/volume] in Serum or Plasma 1.0 mg/dL 0.3-1.2 [facility] Albumin [Mass/volume] in Serum or Plasma by Bromocresol purple (BCP) dye binding method 4.1 g/dL 3.2-4.8 N [facility] ital Protein [Mass/volume] in Serum or Plasma 7.1 g/dL 5.7-8.2 N [facility] ID Date Data Source [id number] 07/31/2019 12:13:00 PM [facility] Method of Collection:: Voided Name Value Range Interpretation Code Description Data Geneva rce(s) Supporting Document(s) Triglycerides 174 mg/dL 0-150 Above high normal [facility] Cholesterol 212 mg/dL 120-200 Above high normal [facility] HDL Cholesterol 44 mg/dL [facility] HDL Less than 40 mg/dL: Major risk for CHDHDL Greater than 59 mg/dL: Low risk for CHD LDL Cholesterol, Calc 134 mg/dL 0-100 Above high normal [facility] ID Date Data Source [id number] 07/12/2019 09:52:00 AM [facility] Patient Name: PIPER LICEA DO B: 1970 Sex: M Pt Unit #: [id number] Location:[facility] Provider: Visit Date/Time: 07/12/19 Primary Insurance: [employer] Secondary Insurance: Self Pay Intake Vital Signs [...] Declines today. Pretest education received and acknowledged [facility] Social History (Updated 07/12/19 @ 09:52 by [...] Safety: Reports Bathroom: Grab bars, Lighting: Adequate, [place]: No throw rugs and Stairs: Handrail available [...] abno rmal findings Plan - Kelli Mcmanus MOMD TEACHER: Healthy 48 year old male. Health maintenance [...] swelling, mass and lump, neck SNOMED Code(s): 725931303 Category: Medical Orders Other Medications: New: loratadine (Allergy Relief (loratadine)) 10 mg PO Q24H 90 days 90 tabs 3RF Changed: From: montelukast 10 mg PO QPM 90 tabs 3RF To: montelukast 10 mg PO QPM 90 days 90 tabs 3RF Instructions: DASH Eating Plan (GEN) Hypertension (GEN) Electronically Signed By: <Electronically signed by Kelli Mcmanus MOMD TEACHER> Date/Time Signed: 07/12/19 1023 Name Value Range Interpretation Code Description Data Geneva rce(s) Supporting Document(s) ID Date Data Source [id number] 05/29/2019 01:24:00 PM EST [facility] 1 OrderSheet [facility] Emergency Department [address] [place] [address] Phone #: ext- [phone] 05/29/2019 13:00 Patient: [...] rce(s) Supporting Document(s) ID Date Data Source [id number] 05/29/2019 01:24:[address] [facility] 1 Medication Reconciliation Report [facility] Emergency Department [address] [place] [address] Phone #: ext- [phone] 05/29/2019 13:00 Patient: [...] 15 tablet. Refills: 0. Substitution permitted.Pharmacy - [facility] [place] [address]. FaxNumber: . -- Antonia Frazier M.D. Name Value Range Interpretation Code Description Data Geneva rce(s) Supporting Document(s) ID Date Data Source [id number] 05/29/2019 01:24:[address] [facility] 1 Medication Administration Record [facility] Emergency Department [address] [place] [address] Phone #: ext- [phone] 05/29/2019 13:00 [id number] Sex[facility] : 1970 Age: 48yWeight: 113.3 [...] rce(s) Supporting Document(s) ID Date Data Source [id number] 05/29/2019 01:24:00 PM EST [facility] 1 General Instructions [facility] Emergency Department [address] [place] [address] Phone #: ext- [phone] 05/29/2019 13:00 Patient: [...] 15 tablet. Refills: 0. Substitution permitted.Pharmacy - [facility] - [address] [place] [address]. FaxNumber: .Follow-up:Follow up with your healthcare provider in three [...] to mechanical stress, such asworking at a [employer] terminal for long periods or work that requires repetitive motions of the arms orhands. It can also be caused by emotional stress, such as problems on the job or in your personal 2 General Instructions [facility] Emergency Department [address] [place] [address] Phone #: ext- [phone] 05/29/2019 13:00 Patient: [...] any poor work habits. You may use [id number]-fkcaaon pain medicine to control pain, unless another [...] if you don'trespond to home treatment alone.Call [phone] if you have: 3 General Instructions [facility] Emergency Department [address] [place] [address] Phone #: ext- [phone] 05/29/2019 13:00 Patient: [...] your pain worsens, regardless of its location [phone] [employer]. [address] [place] [address]. All rights reserved. This information is not [...] alternate ice and heat. You may use pcnz-zbh-rctuatg pain medicine to control pain, unless another [...] and run on the 4 General Instructions [facility] Emergency Department [address] [place] [address] Phone #: ext- [phone] 05/29/2019 13:00 Patient: PIPER LICEA Sex: M : 1970 Age: 48y injured leg without pain.Follow-up careFollow up with your healthcare provider, or as advised.When to seek medical adviceCall your healthcare provider right away if any of these occur: The toes of the injured leg become swollen, cold, blue, numb, or tingly Pain or swelling increases [phone] [employer] [facility] [facility]. [address] [place] [address]. All rights reserved. This information is not [...] rce(s) Supporting Document(s) ID Date Data Source [id number] 05/29/2019 01:24:00 PM EST [facility] 1 Clinical Report - Nurses [facility] Emergency Department [address] [place] [address] Phone #: ext- [phone] 05/29/2019 13:00 Patient: PIPER LICEA Sex: M : 1970 Age: 48yTRIAGEHistorian: patient.Triage time: 13:00 05/29/2019. Acuity: LEVEL 4.Chief Complaint: LEFT LOWER EXTREMITY PAIN.Alert. No acute distress.( pt c/o left hamstring cramp for past 3-4 days, some numbness feeling to back of knee. denies injury.).Treatment [employer]TER:Took Tylenol. (last night).SEPSIS SCREEN: NEGATIVE. Negative (no [...] declined. He 2 Clinical Report - Nurses [facility] Emergency Department [address] [place] [address] Phone #: ext- [phone] 05/29/2019 13:00 [id number] Sex: M : 1970 Age: 48y has [...] physician notified. 3 Clinical Report - Nurses [facility] Emergency Department [address] [place] [address] Phone #: ext- [phone] 05/29/2019 13:00 Patient: [...] Patient verbalized understanding. Written instructions provided in Yoruba. The patient was discharged by the physician. [...] rce(s) Supporting Document(s) ID Date Data Source [id number] 05/29/2019 01:24:00 PM EST [facility] 1 Clinical Report - Physicians/Mid Levels [facility] Emergency Department [address] [place] [address] Phone #: ext- [phone] 05/29/2019 13:00 Patient: [...] and is still present (48 year old [facility] crampy pain past 3 days. not [...] Oral. 2 Clinical Report - Physicians/Mid Levels [facility] Emergency Department [address] [place] [address] Phone #: ext- [phone] 05/29/2019 13:00 Patient: [...] 6.30) 3 Clinical Report - Physicians/Mid Levels [facility] Emergency Department [address] [place] [address] Phone #: ext- [phone] 05/29/2019 13:00 Patient: [...] PROCEDURES 4 Clinical Report - Physicians/Mid Levels [facility] Emergency Department [address] [place] [address] Phone #: ext- [phone] 05/29/2019 13:00 Patient: PIPER LICEA Sex: M [...] visit. Do not drive or operate dangerous [email or web address] [place]. CONTROLLED SUBSTANCE WARNINGS. GENERAL WARNINGS: Return or contact your physician immediately if your condition worsens or changes unexpectedly, if not improving as expected, or if other problems arise. Prescription Medications: cyclobenzaprine tablet 10 mg tablet Administer 1 tablet three times a day as needed for pain for 5 days -- Dispense 15 tablet. Refills: 0. Substitution permitted. Pharmacy - [facility] - [address] [place] [address]. . Follow-up: Follow up with your healthcare provider in three days if not better. Call for an appointment. Reason for referral: evaluation and treatment. Summary of care provided to patient, family and follow-up provider via paper. 5 Clinical Report - Physicians/Mid Levels [facility] Emergency De partment [address] [place] [address] Phone #: ext- [phone] 05/29/2019 13:00 Patient: PIPER LICEA Sex: M : 1970 Age: 48y Understanding of the discharge instructions verbalized by patient and family.(Electronically signed by Antonia Frazier M.D. 05/30/2019 06:46) Name Value Range Interpretation Code Description Data Geneva rce(s) Supporting Document(s) ID Date Data Source [id number] 05/29/2019 02:17:00 PM EST [facility] Name Value Range Interpretation Code Description Data Geneva rce(s) Supporting Document(s) CBC W/AUTOMATED DIFF [facility] COMPLETE BLOOD COUNT Leukocytes [#/volume] in Blood by Automated count 8.3 10^3/uL 4.2 - 1 1.0 [facility] Erythrocytes [#/volume] in Blood by Automated count 5.66 10^6/uL 4. 50 - 6.30 [facility] Hemoglobin [Mass/volume] in Blood 16.8 g/dL 14.0 - 16.0 H [facility] Hematocrit [Volume Fraction] of Blood by Automated count 48.9 % 4 1.0 - 51.0 [facility] Erythrocyte mean corpuscular volume [Entitic volume] by Auto mated count 86.4 fL 80.0 - 94.0 [facility] Erythrocyte mean corpuscular hemoglobin [Entitic mass] by Automated count 29.7 pg 27.0 - 34.0 [facility] Erythrocyte mean corpuscular hemoglobin concentration [Mass/volume] by Automated count 34.4 g/dL 31.0 - 36.0 [facility] Erythrocyte distribution width [Ratio] by Automated count 12.9 % 11.5 - 14.8 [facility] Platelets [#/volume] in Blood by Automated count 233 10^3/uL 150 - 45 0 [facility] Platelet mean volume [Entitic volume] in Blood by Automated count 9.6 fL 7.4 - 10.4 [facility] Neutrophils/100 leukocytes in Blood by Automated count 54.3 % 37. 0 - 80.0 [facility] Lymphocytes/100 leukocytes in Blood by Manual count 36.1 % 25.0 - 40.0 [facility] Monocytes/100 leukocytes in Blood by Automated count 8.0 % 3.0 - 8.0 [facility] Eosinophils/100 leukocytes in Blood by Automated count 0.8 % 0.0 - 7.0 [facility] Basophils/100 leukocytes in Blood by Automated count 0.4 % 0.0 - 2.0 [facility] %IG 0.4 % 0.0 - 0.[address] [facility] %NRBC 0.0 % 0.0 - 0.0 [facility] Neutrophils [#/volume] in Blood by Automated count 4.51 10^3/uL 2.00 - 6.90 [facility] Lymphocytes [#/volume] in Blood by Automated count 2.99 10^3/uL 0.60 - 3.40 [facility] Monocytes [#/volume] in Blood by Automated count 0.66 10^3/uL 0.00 - 0.90 [facility] Eosinophils [#/volume] in Blood by Automated count 0.07 10^3/uL 0.00 - 0.70 [facility] Basophils [#/volume] in Blood by Automated count 0.03 10^3/uL 0.00 - 0.20 [facility] #IG 0.03 10^3/uL 0.00 - 0.10 [facility] #NRBC 0.00 10^3/uL 0.00 - 0.00 [facility] ospital MANUAL DIFF NOT INDICATED [facility] RBC MORPH NOT INDICATED [facility] spital ID Date Data Source [id number] 05/29/2019 02:14:00 PM EST [facility] Name Value Range Interpretation Code Description Data Geneva rce(s) Supporting Document(s) COMPREHENSIVE METABOLIC PANEL [facility] COMPREHENSIVE METABOLIC PANEL Sodium [Moles/volume] in Serum or Plasma 135 mEq/L 134 - 153 [facility] Potassium [Moles/volume] in Serum or Plasma 4.4 mEq/L 3.6 - 5.0 [facility] Chloride [Moles/volume] in Serum or Plasma 100 mEq/L 98 - 107 [facility] Carbon dioxide, total [Moles/volume] in Serum or Plasma 24 MEQ/L 22 - 30 [facility] Glucose [Mass/volume] in Serum or Plasma 102 MG/DL 65 - 110 [facility] BUN 19 MG/DL 7 - [facility] Creatinine [Mass/volume] in Serum or Plasma 0.7 MG/DL 0.7 - 1.5 [facility] BUN/CREAT 27 8 - 27 [facility] al Protein [Mass/volume] in Serum or Plasma 6.6 G/DL 6.3 - 8.2 [facility] Albumin [Mass/volume] in Serum or Plasma 4.5 G/DL 3.9 - 5.0 [facility] Globulin [Mass/volume] in Serum by calculation 2.1 GM/DL 2.4 - 3.2 L [facility] A/G RATIO 2.1 0.8 - 2.0 H [facility] Calcium [Mass/volume] in Serum or Plasma 9.6 MG/DL 8.4 - 10.2 [facility] Bilirubin.total [Mass/volume] in Serum or Plasma 0.7 MG/DL 0.2 - 1.3 [facility] Alkaline phosphatase [Enzymatic activity/volume] in Serum or Plasma 53 U/L 38 - 126 [facility] Aspartate aminotransferase [Enzymatic activity/volume] in Serum or Plasma 30 U/L 5 - 40 [facility] Alanine aminotransferase [Enzymatic activity/volume] in Seru m or Plasma 46 U/L 7 - 56 [facility] Anion gap 3 in Serum or Plasma 11.0 mmol/L 8.0 - 16.0 [facility] AGE [address] [facility] GFR >60 mL/min [facility] AFR AMER GFR >60 mL/min [facility] Male GFR In terprentation [...] >32 mL/min Normal ID Date Data Source [id number] 05/29/2019 02:05:00 PM EST [facility] Name Value Range Interpretation Code Description Data Geneva rce(s) Supporting Document(s) Magnesium [Mass/volume] in Serum or Plasma 2.1 MG/DL 1.7 - 2.2 [facility] Procedure Social History Code Duration Value Status Description Data Source(s ) 05/07/2020 10:59:56 AM EST Former smoker completed Former smoker [facility] Smoking 05/07/2020 10:59:00 AM EST Former smoker completed Former smoker [facility] Smoking 02/05/2020 10:21:00 PM EDT Current every day smoker co mpleted Current every day smoker [facility] Smoking 02/05/2020 10:21:00 PM EDT Current every day smoker co mpleted Current every day smoker [facility] Smoking 02/05/2020 10:21:00 PM EDT Current every day smoker co mpleted Current every day smoker [facility] Smoking 02/05/2020 10:21:00 PM EDT Current every day smoker co mpleted Current every day smoker [facility] 02/05/2020 09:21:10 PM EDT Yes completed Yes [facility] 02/05/2020 09:21:10 PM EDT Yes completed Yes [facility] 02/05/2020 09:21:10 PM EDT Current every day smoker co mpleted Current every day smoker [facility] 02/05/2020 09:21:10 PM EDT Yes completed Yes [facility] 02/05/2020 09:21:10 PM EDT Yes completed Yes [facility] 02/05/2020 09:21:10 PM EDT Current every day smoker co mpleted Current every day smoker [facility] 02/05/2020 09:21:10 PM EDT Yes completed Yes [facility] 02/05/2020 09:21:10 PM EDT Yes completed Yes [facility] 02/05/2020 09:21:10 PM EDT Yes completed Yes [facility] 02/05/2020 09:21:10 PM EDT Yes completed Yes [facility] 02/05/2020 09:21:10 PM EDT Current every day smoker co mpleted Current every day smoker [facility] 02/05/2020 09:21:10 PM EDT Yes completed Yes [facility] 02/05/2020 09:21:10 PM EDT Yes completed Yes [facility] 02/05/2020 09:21:10 PM EDT Current every day smoker co mpleted Current every day smoker [facility] 02/05/2020 09:21:10 PM EDT Yes completed Yes [facility] 02/05/2020 09:21:10 PM EDT Yes completed Yes [facility] 02/05/2020 09:21:10 PM EDT Current every day smoker co mpleted Current every day smoker [facility] 02/05/2020 09:21:10 PM EDT Yes completed Yes [facility] 02/05/2020 09:21:10 PM EDT Yes completed Yes [facility] 02/05/2020 09:21:10 PM EDT Current every day smoker co mpleted Current every day smoker [facility] Smoking 02/05/2020 09:21:00 PM EDT Current every day smoker co mpleted Current every day smoker [facility] Smoking 02/05/2020 09:21:00 PM EDT Current every day smoker co mpleted Current every day smoker [facility] Smoking 11/09/2019 12:00:00 AM EDT Patient has never smoked co mpleted Patient has never smoked [facility] ([facility] 07/12/2019 09:52:02 AM EST Former smoker completed Former smoker [facility] 07/12/2019 09:52:02 AM EST Former smoker completed Former smoker [facility] 07/12/2019 09:52:02 AM EST Former smoker completed Former smoker [facility] 07/12/2019 09:52:02 AM EST Former smoker completed Former smoker [facility] Smoking 07/12/2019 09:52:00 AM EST Former smoker completed Former smoker [facility] Smoking 07/12/2019 09:52:00 AM EST Former smoker completed Former smoker [facility] Smoking 07/12/2019 08:52:00 AM EST Former smoker completed Former smoker [facility] Smoking 07/12/2019 08:52:00 AM EST Former smoker completed Former smoker [facility] Vital Signs ID Date Data Source UNK Name Value Range Interpretation Code Description Data Source(s) Body surface area Derived from formula 2.30 m2 2.30 m2 [facility] ([facility]) Body mass index (BMI) [Ratio] 36.2 kg/m2 36.2 k g/m2 [facility] ([facility]) Body height 70 [in_i] 70 [in_i] [facility] ([facility]) 5'10" Body weight 114.421 kg 114.421 kg [facility] ([facility]) Body weight 252.25 [lb_av] 252.25 [lb_av] [facility] ([facility]) Oxygen saturation in Arterial blood by Pulse oximetry 98 % 98 % [facility] ([facility]) Respiratory rate 18 /min 18 /min [facility] ( [facility]) Body temperature 99.3 [degF] 99.3 [degF] [facility] ([facility]) Oral Heart rate 62 /min 62 /min [facility] ([facility]) Diastolic blood pressure--sitting 86 mm[Hg] 86 mm[Hg] [facility] ([facility]) Systolic blood pressure--sitting 140 mm[Hg] 140 mm[Hg] [facility] ([facility]) Body surface area 2.32 m2 2.32 m2 [facility] ([facility]) Body surface area Derived from formula 2.32 m2 2.32 m2 [facility] ([facility]) Body mass index (BMI) [Ratio] 34.9 kg/m2 34.9 k g/m2 [facility] ([facility]) Body height 71 [in_i] 71 [in_i] [facility] ([facility]) Body weight 113.400 kg 113.400 kg [facility] ([facility]) Body weight 250.00 [lb_av] 250.00 [lb_av] [facility] ([facility]) Respiratory rate 17 /min 17 /min [facility] ( [facility]) Body temperature 97.3 [degF] 97.3 [degF] [facility] ([facility]) Heart rate 70 /min 70 /min [facility] ([facility]) Diastolic blood pressure 92 mm[Hg] 92 mm[Hg] [facility] ([facility]) Systolic blood pressure 141 mm[Hg] 141 mm[Hg] M [facility] ([facility]) Body mass index (BMI) [Ratio] 44.3 kg/m2 [...] [facility]) ID Date Data Source [id number] 02/14/2020 11:42:12 AM EDT [facility] Name Value Range Interpretation Code Description Data Source(s) WEIGHT RECORDED 249.90 pounds 249.90 pounds [facility] Height 70 Inches 070 Inches [facility] ID Date Data Source [id number] 02/09/2020 01:23:31 PM EDT [facility] Name Value Range Interpretation Code Description Data Source(s) WEIGHT RECORDED 250.00 pounds 250.00 pounds [facility] Height 70 Inches 070 Inches [facility]
[2020-06-28] MEDS ORDERED: AUGM875T28 PO (16:24)
--- NOTE | 2020-06-29 09:29 | ECGEPIP ---
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
== END 2020-06-28 13:22 | disposition left against medical advice (07) ==
LOC: M ED 11:06
DX: R42 Dizziness and giddiness (principal); Z53.9 Procedure and treatment not carried out, unspecified reason; I45.19 Other right bundle-branch block; I10 Essential (primary) hypertension; F20.9 Schizophrenia, unspecified; Z88.0 Allergy status to penicillin

== ENCOUNTER 2020-06-28 14:06 | Emergency (ER) | payer MEDICARE, OTHER ==
[~2020-06-28] VITALS: Ht 177.8 cm; Wt 116.5 kg
[~2020-06-28 14:06] MED LIST changes: +CLON0.5T2; +DIVA500T94; +MELO7.5T35; +OLAN20TA14; +PRAZ1CAP; +SERT-138; +SERT50TA29
[2020-06-28 15:00] LABS: BASO % 0.3 % (0.0-1.0); EOS % 0.1 % (0.0-3.0); HEMATOCRIT 48.6 % (42.0-52.0); HEMOGLOBIN 16.7 g/dl (13.5-17.5); MEAN CORPUSCULAR HEMOGLOBIN 30.3 pg (27.0-33.0); MEAN CORPUSCULAR HGB CONC 34.4 g/dl (32.0-36.5); MEAN CORPUSCULAR VOLUME 88.2 fl (80.0-96.0); MONO # 0.7 10^3/uL (0.0-0.8); MONO % 8.4 % (0.0-5.0); NEUTROPHILS # 5.9 10^3/uL (1.5-8.5); PLATELET COUNT, AUTOMATED 265 10^3/uL (150-450); RED BLOOD COUNT 5.51 10^6/uL (4.30-6.10); WHITE BLOOD COUNT 8.6 10^3/uL (4.0-10.0)
[2020-06-28 15:34] LABS: ALBUMIN 4.1 GM/DL (3.2-5.2); ALT/SGPT 38 U/L (12-78); BILIRUBIN,DIRECT 0.2 MG/DL (0.0-0.2); BILIRUBIN,TOTAL 0.5 MG/DL (0.2-1.0); BLOOD UREA NITROGEN 8 MG/DL (7-18); CALCIUM LEVEL 9.5 MG/DL (8.5-10.1); CARBON DIOXIDE LEVEL 27 MEQ/L (21-32); CHLORIDE LEVEL 97 MEQ/L (98-107); CK-MB VALUE MASS 1.7 NG/ML (<3.6); CPK CREATINE PHOSPHOKINASE 135 U/L (39-308); CREATININE FOR GFR 0.98 MG/DL (0.70-1.30); FREE T4 1.26 NG/DL (0.76-1.46); GLOMERULAR FILTRATION RATE > 60.0 (>60); GLUCOSE, FASTING 130 MG/DL (70-100); LIPASE 99 U/L (73-393); MB/CK RELATIVE INDEX 1.26 (< OR =4); SODIUM LEVEL 133 MEQ/L (136-145); TOTAL PROTEIN 7.4 GM/DL (6.4-8.2); TROPONIN I < 0.02 NG/ML (< 0.10)
[2020-06-28] MEDS ORDERED: ISOVUE-370 76% 100ML VIAL As Ordered ONE (15:37)
--- OUTSIDE RECORDS SUMMARY | 2020-06-28 15:41 | CCD ---
Author Author [facility] Address Unknown Phone Unavailable Care Team Providers Care Field Mechanic/Site Lead Name Role Phone Riddhi [phone] MD Naveed LOUIS Unavailable Unavailable Riddhi [phone] MD Naveed LOUIS Unavailable Unavailable Riddhi [phone] Lucio MD Unavailable Unavailable DANIA, CATARINO Unavailable Unavailable MEDENT_510, [phone] Unavailable Unavailable Skip Rutherford MD Unavailable Unavailable Amador Falanga, A Johanna ELECTROCARDIOGRAPH TECHNICIAN Unavailable Unavailable Amador Falanga, A Johanna ELECTROCARDIOGRAPH TECHNICIAN Unavailable Unavailable Partridge Falanga, A Johanna ELECTROCARDIOGRAPH TECHNICIAN Unavailable Unavailable Partridge Falanga, A Johanna ELECTROCARDIOGRAPH TECHNICIAN Unavailable Unavailable Amador Falanga, A Johanna ELECTROCARDIOGRAPH TECHNICIAN Unavailable Unavailable Amador Falanga, A Johanna ELECTROCARDIOGRAPH TECHNICIAN Unavailable Unavailable Partridge Falanga, A Johanna ELECTROCARDIOGRAPH TECHNICIAN Unavailable Unavailable Partridge Falanga, A Johanna ELECTROCARDIOGRAPH TECHNICIAN Unavailable Unavailable Partridge Falanga, A Johanna ELECTROCARDIOGRAPH TECHNICIAN Unavailable Unavailable Partridge Falanga, A Johanna ELECTROCARDIOGRAPH TECHNICIAN Unavailable Unavailable Partridge Falanga, A Johanna ELECTROCARDIOGRAPH TECHNICIAN Unavailable Unavailable Partridge Falanga, A Johanna ELECTROCARDIOGRAPH TECHNICIAN Unavailable Unavailable Amador Falanga, A Johanna ELECTROCARDIOGRAPH TECHNICIAN Unavailable Unavailable Amador Falanga, A Johanna ELECTROCARDIOGRAPH TECHNICIAN Unavailable Unavailable Partridge Falanga, A Johanna ELECTROCARDIOGRAPH TECHNICIAN Unavailable Unavailable Partridge Falanga, A Johanna ELECTROCARDIOGRAPH TECHNICIAN Unavailable Unavailable Amador Falanga, A Johanna ELECTROCARDIOGRAPH TECHNICIAN Unavailable Unavailable Amador Falanga, A Johanna ELECTROCARDIOGRAPH TECHNICIAN Unavailable Unavailable Amador Falanga, A Johanna ELECTROCARDIOGRAPH TECHNICIAN Unavailable Unavailable Amador Falanga, A Johanna ELECTROCARDIOGRAPH TECHNICIAN Unavailable Unavailable Amador Falanga, A Johanna ELECTROCARDIOGRAPH TECHNICIAN Unavailable Unavailable Amador Falanga, A Johanna ELECTROCARDIOGRAPH TECHNICIAN Unavailable Unavailable Partridge Falanga, A Johanna ELECTROCARDIOGRAPH TECHNICIAN Unavailable Unavailable Partridge Falanga, A Johanna ELECTROCARDIOGRAPH TECHNICIAN Unavailable Unavailable Partridge Falanga, A Johanna ELECTROCARDIOGRAPH TECHNICIAN Unavailable Unavailable Partridge Falanga, A Johanna ELECTROCARDIOGRAPH TECHNICIAN Unavailable Unavailable Amador Falanga, A Johanna ELECTROCARDIOGRAPH TECHNICIAN Unavailable Unavailable Amador Falanga, A Johanna ELECTROCARDIOGRAPH TECHNICIAN Unavailable Unavailable Partridge Falanga, A Johanna ELECTROCARDIOGRAPH TECHNICIAN Unavailable Unavailable Amador Falanga, A Johanna ELECTROCARDIOGRAPH TECHNICIAN Unavailable Unavailable ANTONIA FRAZIER MD Unavailable Unavailable ANTONIA FRAZIER MD Unavailable Unavailable ANTONIA FRAZIER MD Unavailable Unavailable ANTONIA FRAZIER MD Unavailable Unavailable ANTONIA FRAZIER MD Unavailable Unavailable AMERNATGregorio, ANTONIA LOUIS Unavailable Unavailable AMERNATGregorio, ANTONIA LOUIS Unavailable Unavailable AMERNATGregorio, ANTONIA LOUIS Unavailable Unavailable AMERNATGregorio, ANTONIA LOUIS Unavailable Unavailable AMERNATGregorio, ANTONIA LOUIS Unavailable Unavailable AMERLOWELL, ANTONIA LOUIS Unavailable Unavailable ANTONIA FRAZIER MD Unavailable Unavailable Dylan, Jorge Luis Biggs [...] Biggs MD Unavailable Unavailable Yonathan, A Kelli TOOL LIAISON Unavailable Unavailable Yonathan, A Kelli TOOL LIAISON Unavailable Unavailable Yonathan, A Kelli TOOL LIAISON Unavailable Unavailable Yonathan, A Kelli TOOL LIAISON Unavailable Unavailable Yonathan, A Kelli TOOL LIAISON Unavailable Unavailable Yonathan, A Kelli TOOL LIAISON Unavailable Unavailable Yonathan, A Kelli TOOL LIAISON Unavailable Unavailable Yonathan, A Kelli TOOL LIAISON Unavailable Unavailable Yonathan, A Kelli TOOL LIAISON Unavailable Unavailable Yonathan, A Kelli TOOL LIAISON Unavailable Unavailable Yonathan, A Kelli TOOL LIAISON Unavailable Unavailable Yonathan, A Kelli TOOL LIAISON Unavailable Unavailable Yonathan, A Kelli TOOL LIAISON Unavailable Unavailable Yonathan, A Kelli TOOL LIAISON Unavailable Unavailable Yonathan, A Kelli TOOL LIAISON Unavailable Unavailable Yonathan, A Kelli TOOL LIAISON Unavailable Unavailable Yonathan, A Kelli TOOL LIAISON Unavailable Unavailable Yonathan, A Kelli TOOL LIAISON Unavailable Unavailable Yonathan, A Kelli TOOL LIAISON Unavailable Unavailable Yonathan, A Kelli TOOL LIAISON Unavailable Unavailable Yonathan, A Kelli TOOL LIAISON Unavailable Unavailable Yonathan, A Kelli TOOL LIAISON Unavailable Unavailable Yonathan, A Kelli TOOL LIAISON Unavailable Unavailable Yonathan, A Kelli TOOL LIAISON Unavailable Unavailable Yonathan, A Kelli TOOL LIAISON Unavailable Unavailable Yonathan, A Kelli TOOL LIAISON Unavailable Unavailable Yonathan, A Kelli TOOL LIAISON Unavailable Unavailable Yonathan, A Kelli TOOL LIAISON Unavailable Unavailable Yonathan, A Kelli TOOL LIAISON Unavailable Unavailable Yonathan, A Kelli TOOL LIAISON Unavailable Unavailable Yonathan, A Kelli TOOL LIAISON Unavailable Unavailable Yonathan, A Kelli TOOL LIAISON Unavailable Unavailable Yonathan, A Kelli TOOL LIAISON Unavailable Unavailable Yonathan, A Kelli TOOL LIAISON Unavailable Unavailable Yonathan, A Kelli TOOL LIAISON Unavailable Unavailable Yonathan, A Kelli TOOL LIAISON Unavailable Unavailable Yonathan, A Kelli TOOL LIAISON Unavailable Unavailable Yonathan, A Kelli TOOL LIAISON Unavailable Unavailable Rosales ., Velvet DO Unavailable Unavailable Rosales ., Velvet DO Unavailable Unavailable Yonathan, A Kelli TOOL LIAISON Unavailable Unavailable Yonathan, A Kelli TOOL LIAISON Unavailable Unavailable Yonathan, A Kelli TOOL LIAISON Unavailable Unavailable Yonathan, A Kelli TOOL LIAISON Unavailable Unavailable Yonathan, A Kelli TOOL LIAISON Unavailable Unavailable Yonathan, A Kelli TOOL LIAISON Unavailable Unavailable Yonathan, A Kelli TOOL LIAISON Unavailable Unavailable Yonathan, A Kelli TOOL LIAISON Unavailable Unavailable Yonathan, A Kelli TOOL LIAISON Unavailable Unavailable Yonathan, A Kelli TOOL LIAISON Unavailable Unavailable Yonathan, A Kelli TOOL LIAISON Unavailable Unavailable Yonathan, A Kelli TOOL LIAISON Unavailable Unavailable Yonathan, A Kelli TOOL LIAISON Unavailable Unavailable Yonathan, A Kelli TOOL LIAISON Unavailable Unavailable Yonathan, A Kelli TOOL LIAISON Unavailable Unavailable Yonathan, A Kelli TOOL LIAISON Unavailable Unavailable Yonathan, A Kelli TOOL LIAISON Unavailable Unavailable Yoanthan, A Kelli TOOL LIAISON Unavailable Unavailable Yonathan, A Kelli TOOL LIAISON Unavailable Unavailable Yonathan, A Kelli TOOL LIAISON Unavailable Unavailable Yonathan, A Kelli TOOL LIAISON Unavailable Unavailable Yonathan, A Kelli TOOL LIAISON Unavailable Unavailable Yonathan, A Kelli TOOL LIAISON Unavailable Unavailable Yonathan, A Kelli TOOL LIAISON Unavailable Unavailable Yonathan, A Kelli TOOL LIAISON Unavailable Unavailable Yonathan, A Kelli TOOL LIAISON Unavailable Unavailable Yonathan, A Kelli TOOL LIAISON Unavailable Unavailable Yonathan, A Kelli TOOL LIAISON Unavailable Unavailable Yonathan, A Kelli TOOL LIAISON Unavailable Unavailable Yonathan, A Kelli TOOL LIAISON Unavailable Unavailable Yonathan, A Kelli TOOL LIAISON Unavailable Unavailable Yonathan, A Kelli TOOL LIAISON Unavailable Unavailable Yonathan, A Kelli TOOL LIAISON Unavailable Unavailable Yonathan, A Kelli TOOL LIAISON Unavailable Unavailable Yonathan, A Kelli TOOL LIAISON Unavailable Unavailable Yonathan, A Kelli TOOL LIAISON Unavailable Unavailable Yonathan, A Kelli TOOL LIAISON Unavailable Unavailable Yonathan, A Kelli TOOL LIAISON Unavailable Unavailable Alcon Abarca MD Unavailable Unavailable Althouse, Mirian TOOL LIAISON Unavailable Unavailable DORRER, RPA P EB PA [...] Kalyan MD Unavailable Unavailable Dylan, F Kalyan LOUIS Unavailable Unavailable REMA, L PHILLIP MD Unavailable [...] is protected by Article 27-F of the [facility] Public Health law. If you continue you may have access to information: Regarding HIV / AIDS; Provided by facilities licensed or operated by the [facility] Office of Mental Health; or Provided by the [facility] Office for People With Developmental Disabilities. If such information is present, then the following [facility] mandated warning applies: This information [...] law may result in a fine or correction sentence or both. A general authorization for the release of medical or other information is NOT sufficient authorization for further disc losure. Allergies and Adverse Reactions Type Description Substance Reaction Status Data Source(s ) No Known Drug Allergies No Known Drug Allergies [facility] Drug allergy No Known Allergies No Known Allergies [facility] rag weed rag weed builds up eye drainage, post nasal d rip [facility] dust mites dust mites builds up drainage in eyes , post na makenna drip [facility] Drug allergy No Known Drug Allergies No Known Drug Allergies [facility] Drug Allergy Drug Allergy NKDA [facility] ([facility]) Encounters Encounter Providers Location Date Indications Data Source(s ) Outpatient Attender: Kelli Mcmanus NP 06/21/2020 05:56:00 PM [facility] Outpatient Attender: Kelli Mcmanus NPReferrer: Kelli castro NP 06/21/2020 09:36[facility] Attender: JEANETTE DURANTConsultant: Kelli Araiza P 06/13/2020 08:02:00 AM EST - 06/13/2020 08:02:00 AM [facility] Outpatient Attender: JEANETTE DURANTConsultant: Kelli Araiza P 06/06/2020 01:55:00 PM EST - 06/06/2020 01:55:00 PM [facility] Outpatient Attender: Kelli Mcmanus NPReferrer: Kelli castro TOOL LIAISON 06/04/2020 01:14:00 PM EST - 06/04/2020 01:47:00 PM EST [facility] Outpatient Attender: JEANETTE DURANTConsultant: Kelli rAaiza P 05/28/2020 08:54:00 AM EST - 05/28/2020 08:54:00 AM [facility] Outpatient Attender: JEANETTE DURANTConsultant: Kelli Araiza P 05/20/2020 11:55:00 AM EST - 05/20/2020 11:55:00 AM [facility] Outpatient Attender: JEANETTE DURANTConsultant: Kelli Araiza P 05/08/2020 07:54:00 AM EST - 05/08/2020 07:54:00 AM [facility] Outpatient Attender: Kelli Mcmanus NPReferrer: Kelli castro TOOL LIAISON 05/07/2020 10:55:00 AM EST - 05/07/2020 11:28:00 AM [facility] Outpatient Attender: ARELI Yu tender: JEANETTE DURANTConsultant: Kelli Mcmanus NP 05/06/2020 10:34:00 AM EST - 05/06/2020 10:34:00 AM [facility] Outpatient Attender: [id number] [id number] 05/06/2020 10:00:00 AM EST [facility] ([facility] Outpatient Attender: JEANETTE DURANTConsultant: Kelli Araiza P 05/03/2020 08:55:00 AM EST - 05/03/2020 08:55:00 AM [facility] Outpatient Attender: Kelli Mcmanus NPReferrer: Kelli castro TOOL LIAISON 04/24/2020 11:39:00 AM EST - 04/24/2020 11:50:00 AM EST [facility] Outpatient Attender: CATARINO NAJERAConsultant: Kelli castro TOOL LIAISON 04/18/2020 12:36:00 PM EST - 04/18/2020 12:36:00 PM EST [facility] Outpatient Attender: Kelli Mcmanus TOOL LIAISON 04/04/2020 10:35:00 AM EST R79.89 [facility] R79.89 Outpatient Attender: Kelli Mcmanus NPReferrer: Kelli castro TOOL LIAISON 04/04/2020 10:04:00 AM EST - 04/04/2020 10:33:00 AM EST [facility] Outpatient Attender: Kelli Mcmanus NPReferrer: Kelli castro TOOL LIAISON 03/13/2020 09:54:00 AM EDT - 03/13/2020 10:40:00 AM EDT [facility] Outpatient Attender: Eb MARTEL 03/04/2020 04: 45:00 PM EDT Neoplasm of uncertain behavior of skin [facility] Neoplasm of uncertain behavior of skin Outpatient Attender: [facility] EB MARTEL [facility] M-LAB.NONPPR 03/04/2020 02:51:00 PM EDT - 03/06/2020 12:00:00 AM EDT [facility] NONPAR Preadmit Attender: [id number] Naveed Hannon MD 020 12:00:00 AM EDT K42.9/01094 [facility] K42.9/05867 Outpatient Attender: Elton Jennings MD 02/12/2020 02:20:[address] [facility] 941 Mh Eval Inpatient Attender: Alcon Abarca MDAttender: Velvet Gallardo [facility] .Admitter: Alcon Abarca MD 02/12/2020 12:00:00 AM EDT - 02/16/2020 11:37:00 AM EDT [facility] Patient discharged. Outpatient Attender: Mirian Araiza PAdmitter: Alcon Abarca MDConsultant: Alcon Abarca MD 02/12/2020 12:00:00 AM EDT 941 [facility] Eval [facility] 941 Mh Eval Outpatient Attender: Mirian Araiza PAdmitter: Alcon Colon MDConsultant: Alcon Colon 02/12/2020 12:00:00 AM EDT 941 [facility] 941 Mh Eval Outpatient Attender: Alcon Colon MDAdmit ter: Alcon Colon MDConsultant: Alcon Colon 02/12/2020 12:00:00 AM EDT 941 [facility] 941 Mh Eval Outpatient Attender: Mirian Araiza PAdmitter: Alcon Colon MDConsultant: Alcon Colon 02/12/2020 12:00:00 AM EDT 941 [facility] 941 Mh Eval Outpatient 02/07/2020 06:55:00 PM EDT [facility] Outpatient Attender: Johanna melissa FNPAttender: PHILLIP HODGSON MDReferrer: Kalyan Richardson MDConsultant: Kelli Mcmanus NP 02/07/2020 06:08:00 PM EDT - 02/08/2020 12:00:00 PM EDT [facility] Patient discharged. Outpatient Attender: Kalyan Richardson MDConsultant: Kelli valladares NP 02/06/2020 02:30:00 PM EDT - 02/06/2020 06:15:00 PM EDT [facility] Patient discharged. Outpatient Attender: Kalyan Richardson MD [facility] 02/06/2020 1 1:30:00 AM EDT [facility] ([facility]) Outpatient Attender: Kalyan Richardson MDConsultant: Kelli valladares NP 02/06/2020 10:51:00 AM EDT - 02/06/2020 10:51:00 AM EDT [facility] Emergency Attender: Skip Rutherford MD 11/2019 08:55:00 PM EDT - 02/06/2020 01:37:00 AM ED[facility] Patient discharged. Outpatient Attender: [id number] Naveed Hannon MD 020 03:19:00 PM EDT PRE OP/K42.9 [facility] PRE OP/K42.9 Outpatient Attender: [id number] Naveed Hannon MDReferrer: Veda Mcmanus TOOL LIAISON 02/01/2020 02:31:00 PM EDT - 02/01/2020 03:13:00 PM EDT [facility] Outpatient Attender: Kelli Mcmanus NPReferrer: Kelli castro TOOL LIAISON 12/20/2019 10:19:00 AM [facility]: Kelli Mcmanus NP 11/16/2019 07: 30:00 PM EDT Snoring, Excessive Daytime Sleepiness, Anpea, HTN [facility] Snoring, Excessive Daytime Sleepiness, A npea, HTN Outpatient Attender: CHANCE WELCH MD Main Office 11/09/2019 01:15:00 PM EDT [facility] ([facility] Outpatient Attender: Kelli Mcmanus NPReferrer: Kelli castro TOOL LIAISON 10/19/2019 09:56:00 AM EDT - 10/19/2019 10:31:00 AM EDT [facility] Outpatient Attender: Kelli Mcmanus NP 07/31/2019 11:05:00 AM [facility] Z00.00,I10 [facility] Z00.00,I10 Outpatient Attender: Kelli Mcmanus NPReferrer: Kelli castro TOOL LIAISON 07/12/2019 09:48:00 AM EST - 07/12/2019 10:15:00 AM EST [facility] Emergency Attender: ANTONIA FRAZIER MDConsultant: Kelli Mcmanus TOOL LIAISON 05/29/2019 01:24:00 PM EST - 05/29/2019 04:17:00 PM [facility] Patient discharged. Immunizations Vaccine Date Status Description Data Source(s) IIV3. This is one of two codes replacing CVX 15, which is being retired. 03/13/2020 12:00:00 AM EDT completed influenza vaccine, inactivated [facility] IIV3. This is one of two codes replacing CVX 15, which is being retired. 03/13/2020 12:00:00 AM EDT completed influenza vaccine, inactivated [facility] IIV3. This is one of two codes replacing CVX 15, which is being retired. 03/13/2020 12:00:00 AM EDT completed influenza vaccine, inactivated [facility] IIV3. This is one of two codes replacing CVX 15, which is being retired. 03/13/2020 12:00:00 AM EDT completed influenza vaccine, inactivated [facility] IIV3. This is one of two codes replacing CVX 15, which is being retired. 03/13/2020 12:00:00 AM EDT completed influenza vaccine, inactivated [facility] Medications Medication Brand Name Start Date Product Form Dose Route Admi nistrative Instructions Pharmacy Instructions Status Indications Reaction Description Data Source(s) Amoxicillin 875 MG / Clavulanate 125 MG Oral Tablet Am oxicillin-Pot Clavulanate Amoxicillin-Pot Clavulanate 06/21/2020 09:36:59 AM EST 1 TAB active [facility] Testosterone Cypionate 06/04/2020 02:26:38 PM EST 200 MG active [facility] Clonazepam 0.5 MG Oral Tablet Clonazepam 06/04/2020 02:26:33 PM EST 0.5 MG active [facility] olanzapine 10 MG Oral Tablet Olanzapine Olanzapine 06/04/2020 01: 20:44 PM EST 20 MG active [facility] olanzapine 10 MG Oral Tablet Olanzapine Olanzapine 06/04/2020 01: 20:44 PM EST 20 MG active [facility] Clonazepam 0.5 MG Oral Tablet Clonazepam 05/07/2020 01:11:14 PM EST 0.5 MG completed [facility] Clonazepam 0.5 MG Oral Tablet Clonazepam 05/07/2020 01:11:14 PM EST 0.5 MG active [facility] Testosterone Cypionate 05/07/2020 01:04:59 PM EST 200 MG completed [facility] Testosterone Cypionate 05/07/2020 01:04:59 PM EST 200 MG active [facility] Sertraline 100 MG Oral Tablet Sertraline 05/07/2020 11:19:59 AM EST 100 MG active [facility] Sertraline 100 MG Oral Tablet Sertraline 05/07/2020 11:19:59 AM EST 100 MG active [facility] Sertraline 100 MG Oral Tablet Sertraline 05/07/2020 11:19:59 AM EST 100 MG active [facility] Sertraline 50 MG Oral Tablet Sertraline 05/07/2020 11:19:08 AM EST 50 MG active [facility] Sertraline 50 MG Oral Tablet Sertraline 05/07/2020 11:19:08 AM EST 50 MG active [facility] Sertraline 50 MG Oral Tablet Sertraline 05/07/2020 11:19:08 AM EST 50 MG active [facility] olanzapine 10 MG Oral Tablet Olanzapine Olanzapine 05/07/2020 11: 17:30 AM EST 10 MG active [facility] olanzapine 10 MG Oral Tablet Olanzapine Olanzapine 05/07/2020 11: 17:30 AM EST 10 MG completed [facility] olanzapine 10 MG Oral Tablet Olanzapine Olanzapine 05/07/2020 11: 17:30 AM EST 10 MG completed [facility] Testosterone Cypionate 04/11/2020 09:46:30 AM EST 200 MG completed [facility] Testosterone Cypionate 04/11/2020 09:46:30 AM EST 200 MG completed [facility] Testosterone Cypionate 04/11/2020 09:46:30 AM EST 200 MG active [facility] Testosterone Cypionate 04/11/2020 09:46:30 AM EST 200 MG active [facility] Syringe (Disposable) (Bd Luer-Yanira Tip Control Syring) 10 mL syringe 04/11/2020 09:46:20 AM EST 1 EACH active [facility] Syringe (Disposable) (Bd Luer-Yanira Tip Control Syring) 10 mL syringe 04/11/2020 09:46:20 AM EST 1 EACH active [facility] Syringe (Disposable) (Bd Luer-Yanira Tip Control Syring) 10 mL syringe 04/11/2020 09:46:20 AM EST 1 EACH completed [facility] Syringe (Disposable) (Bd Luer-Yanira Tip Control Syring) 10 mL syringe 04/11/2020 09:46:20 AM EST 1 EACH active [facility] Clonazepam 0.5 MG Oral Tablet Clonazepam 04/11/2020 09:33:55 AM EST 0.5 MG active [facility] Clonazepam 0.5 MG Oral Tablet Clonazepam 04/11/2020 09:33:55 AM EST 0.5 MG completed [facility] Clonazepam 0.5 MG Oral Tablet Clonazepam 04/11/2020 09:33:55 AM EST 0.5 MG active [facility] Clonazepam 0.5 MG Oral Tablet Clonazepam 04/11/2020 09:33:55 AM EST 0.5 MG completed [facility] Testosterone Cypionate 04/04/2020 10:27:13 AM EST 200 MG active [facility] Testosterone Cypionate 04/04/2020 10:27:13 AM EST 200 MG completed [facility] Testosterone Cypionate 04/04/2020 10:27:13 AM EST 200 MG completed [facility] Testosterone Cypionate 04/04/2020 10:27:13 AM EST 200 MG completed [facility] Testosterone Cypionate 04/04/2020 10:27:13 AM EST 200 MG completed [facility] Sertraline 100 MG Oral Tablet Sertraline 04/04/2020 10:24:47 AM EST 100 MG completed [facility] Sertraline 100 MG Oral Tablet Sertraline 04/04/2020 10:24:47 AM EST 100 MG active [facility] Sertraline 100 MG Oral Tablet Sertraline 04/04/2020 10:24:47 AM EST 100 MG completed [facility] Sertraline 100 MG Oral Tablet Sertraline 04/04/2020 10:24:47 AM EST 100 MG completed [facility] Sertraline 100 MG Oral Tablet Sertraline 04/04/2020 10:24:47 AM EST 100 MG active [facility] Alprazolam 0.5 MG Oral Tablet Alprazolam 03/18/2020 03:36:09 PM EDT 0.5 MG completed [facility] Alprazolam 0.5 MG Oral Tablet Alprazolam 03/18/2020 03:36:09 PM EDT 0.5 MG completed [facility] Alprazolam 0.5 MG Oral Tablet Alprazolam 03/18/2020 03:36:09 PM EDT 0.5 MG completed [facility] Alprazolam 0.5 MG Oral Tablet Alprazolam 03/18/2020 03:36:09 PM EDT 0.5 MG active [facility] Alprazolam 0.5 MG Oral Tablet Alprazolam 03/18/2020 03:36:09 PM EDT 0.5 MG completed [facility] Alprazolam 0.5 MG Oral Tablet Alprazolam 03/18/2020 03:24:41 PM EDT 0.5 MG completed [facility] Alprazolam 0.5 MG Oral Tablet Alprazolam 03/18/2020 03:24:41 PM EDT 0.5 MG completed [facility] Alprazolam 0.5 MG Oral Tablet Alprazolam 03/18/2020 03:24:41 PM EDT 0.5 MG completed [facility] Alprazolam 0.5 MG Oral Tablet Alprazolam 03/18/2020 03:24:41 PM EDT 0.5 MG completed [facility] Alprazolam 0.5 MG Oral Tablet Alprazolam 03/18/2020 03:24:41 PM EDT 0.5 MG completed [facility] Prazosin 1 MG Oral Capsule Prazosin 03/18/2020 03:23:46 PM EDT 1 MG active [facility] Prazosin 1 MG Oral Capsule Prazosin 03/18/2020 03:23:46 PM EDT 1 MG active [facility] Prazosin 1 MG Oral Capsule Prazosin 03/18/2020 03:23:46 PM EDT 1 MG active [facility] Prazosin 1 MG Oral Capsule Prazosin 03/18/2020 03:23:46 PM EDT 1 MG active [facility] Prazosin 1 MG Oral Capsule Prazosin 03/18/2020 03:23:46 PM EDT 1 MG active [facility] Sertraline 50 MG Oral Tablet Sertraline 03/13/2020 10:50:28 AM EDT 50 MG completed [facility] Sertraline 50 MG Oral Tablet Sertraline 03/13/2020 10:50:28 AM EDT 50 MG completed [facility] Sertraline 50 MG Oral Tablet Sertraline 03/13/2020 10:50:28 AM EDT 50 MG completed [facility] Sertraline 50 MG Oral Tablet Sertraline 03/13/2020 10:50:28 AM EDT 50 MG completed [facility] Sertraline 50 MG Oral Tablet Sertraline 03/13/2020 10:50:28 AM EDT 50 MG completed [facility] Prazosin 1 MG Oral Capsule Prazosin 03/13/2020 10:50:09 AM EDT 1 MG completed [facility] Prazosin 1 MG Oral Capsule Prazosin 03/13/2020 10:50:09 AM EDT 1 MG completed [facility] Prazosin 1 MG Oral Capsule Prazosin 03/13/2020 10:50:09 AM EDT 1 MG completed [facility] Prazosin 1 MG Oral Capsule Prazosin 03/13/2020 10:50:09 AM EDT 1 MG completed [facility] Prazosin 1 MG Oral Capsule Prazosin 03/13/2020 10:50:09 AM EDT 1 MG completed [facility] olanzapine 10 MG Oral Tablet Olanzapine Olanzapine 03/13/2020 10: 49:50 AM EDT 20 MG completed [facility] olanzapine 10 MG Oral Tablet Olanzapine Olanzapine 03/13/2020 10: 49:50 AM EDT 20 MG active [facility] olanzapine 10 MG Oral Tablet Olanzapine Olanzapine 03/13/2020 10: 49:50 AM EDT 20 MG completed [facility] olanzapine 10 MG Oral Tablet Olanzapine Olanzapine 03/13/2020 10: 49:50 AM EDT 20 MG active [facility] olanzapine 10 MG Oral Tablet Olanzapine Olanzapine 03/13/2020 10: 49:50 AM EDT 20 MG completed [facility] Divalproex Sodium 500 MG Delayed Release Oral Tablet Divalpr oex 03/13/2020 10:49:22 AM EDT 500 MG active [facility] Divalproex Sodium 500 MG Delayed Release Oral Tablet Divalpr oex 03/13/2020 10:49:22 AM EDT 500 MG active [facility] [facility] Dival[facility] Sodium 500 MG Delayed Release Oral Tablet Divalpr oex 03/13/2020 10:49:22 AM EDT 500 MG active [facility] Divalproex Sodium 500 MG Delayed Release Oral Tablet Divalpr oex 03/13/2020 10:49:22 AM EDT 500 MG active [facility] Divalproex Sodium 500 MG Delayed Release Oral Tablet Divalpr oex 03/13/2020 10:49:22 AM EDT 500 MG active [facility] Divalproex Sodium 500 MG Delayed Release Oral Tablet Divalpr oex 03/13/2020 10:06:36 AM EDT 500 MG completed [facility] Divalproex Sodium 500 MG Delayed Release Oral Tablet Divalpr oex 03/13/2020 10:06:36 AM EDT 500 MG completed [facility] Divalproex Sodium 500 MG Delayed Release Oral Tablet Divalpr oex 03/13/2020 10:06:36 AM EDT 500 MG completed [facility] Divalproex Sodium 500 MG Delayed Release Oral Tablet Divalpr oex 03/13/2020 10:06:36 AM EDT 500 MG completed [facility] Divalproex Sodium 500 MG Delayed Release Oral Tablet Divalpr oex 03/13/2020 10:06:36 AM EDT 500 MG completed [facility] Divalproex Sodium 500 MG Delayed Release Oral Tablet Divalpr oex 03/13/2020 10:06:36 AM EDT 500 MG completed [facility] Prazosin 1 MG Oral Capsule Prazosin 03/13/2020 10:06:14 AM EDT completed [facility] Prazosin 1 MG Oral Capsule Prazosin 03/13/2020 10:06:14 AM EDT completed [facility] Prazosin 1 MG Oral Capsule Prazosin 03/13/2020 10:06:14 AM EDT completed [facility] Prazosin 1 MG Oral Capsule Prazosin 03/13/2020 10:06:14 AM EDT completed [facility] Prazosin 1 MG Oral Capsule Prazosin 03/13/2020 10:06:14 AM EDT completed [facility] Prazosin 1 MG Oral Capsule Prazosin 03/13/2020 10:06:14 AM EDT completed [facility] olanzapine 10 MG Oral Tablet Olanzapine Olanzapine 03/13/2020 10: 06:01 AM EDT completed [facility] olanzapine 10 MG Oral Tablet Olanzapine Olanzapine 03/13/2020 10: 06:01 AM EDT completed [facility] olanzapine 10 MG Oral Tablet Olanzapine Olanzapine 03/13/2020 10: 06:01 AM EDT completed [facility] olanzapine 10 MG Oral Tablet Olanzapine Olanzapine 03/13/2020 10: 06:01 AM EDT completed [facility] olanzapine 10 MG Oral Tablet Olanzapine Olanzapine 03/13/2020 10: 06:01 AM EDT completed [facility] olanzapine 10 MG Oral Tablet Olanzapine Olanzapine 03/13/2020 10: 06:01 AM EDT completed [facility] Sertraline 50 MG Oral Tablet Sertraline 03/13/2020 10:05:33 AM EDT completed [facility] Sertraline 50 MG Oral Tablet Sertraline 03/13/2020 10:05:33 AM EDT completed [facility] Sertraline 50 MG Oral Tablet Sertraline 03/13/2020 10:05:33 AM EDT completed [facility] Sertraline 50 MG Oral Tablet Sertraline 03/13/2020 10:05:33 AM EDT completed [facility] Sertraline 50 MG Oral Tablet Sertraline 03/13/2020 10:05:33 AM EDT completed [facility] Sertraline 50 MG Oral Tablet Sertraline 03/13/2020 10:05:33 AM EDT completed [facility] Afluria Qd 2019-(3yr up)(PF) (flu vac [id number] 36mos up(P F)) 03/13/2020 09:54:44 AM EDT 60 MCG completed [facility] Afluria Qd 2019-(3yr up)(PF) (flu vac [id number] 36mos up(P F)) 03/13/2020 09:54:44 AM EDT 60 MCG completed [facility] Afluria Qd 2019-(3yr up)(PF) (flu vac [id number] 36mos up(P F)) 03/13/2020 09:54:44 AM EDT 60 MCG completed [facility] Afluria Qd 2019-21(3yr up)(PF) (flu vac [id number] 36mos up(P F)) 03/13/2020 09:54:44 AM EDT 60 MCG completed [facility] Afluria Qd 2019-21(3yr up)(PF) (flu vac [id number] 36mos up(P F)) 03/13/2020 09:54:44 AM EDT 60 MCG completed [facility] Afluria Qd (3yr up)(PF) (flu vac [id number] 36mos up(P F)) 03/13/2020 09:54:44 AM EDT 60 MCG completed [facility] Testosterone Cypionate 02/27/2020 04:07:34 PM EDT 300 MG completed [facility] Testosterone Cypionate 02/27/2020 04:07:34 PM EDT 300 MG completed [facility] Testosterone Cypionate 02/27/2020 04:07:34 PM EDT 300 MG completed [facility] Testosterone Cypionate 02/27/2020 04:07:34 PM EDT 300 MG active [facility] Testosterone Cypionate 02/27/2020 04:07:34 PM EDT 300 MG completed [facility] Testosterone Cypionate 02/27/2020 04:07:34 PM EDT 300 MG completed [facility] Alprazolam 0.5 MG Oral Tablet Alprazolam 02/21/2020 08:22:10 AM EDT 0.5 MG completed [facility] Alprazolam 0.5 MG Oral Tablet Alprazolam 02/21/2020 08:22:10 AM EDT 0.5 MG active [facility] Alprazolam 0.5 MG Oral Tablet Alprazolam 02/21/2020 08:22:10 AM EDT 0.5 MG completed [facility] Alprazolam 0.5 MG Oral Tablet Alprazolam 02/21/2020 08:22:10 AM EDT 0.5 MG completed [facility] Alprazolam 0.5 MG Oral Tablet Alprazolam 02/21/2020 08:22:10 AM EDT 0.5 MG completed [facility] Alprazolam 0.5 MG Oral Tablet Alprazolam 02/21/2020 08:22:10 AM EDT 0.5 MG completed [facility] Syringe (Disposable) (Bd Luer-Yanira Tip Control Syring) 10 mL syringe 02/06/2020 10:06:04 AM EDT 1 EACH completed [facility] Syringe (Disposable) (Bd Luer-Yanira Tip Control Syring) 10 mL syringe 02/06/2020 10:06:04 AM EDT 1 EACH active [facility] Syringe (Disposable) (Bd Luer-Yanira Tip Control Syring) 10 mL syringe 02/06/2020 10:06:04 AM EDT 1 EACH completed [facility] Syringe (Disposable) (Bd Luer-Yanira Tip Control Syring) 10 mL syringe 02/06/2020 10:06:04 AM EDT 1 EACH active [facility] Syringe (Disposable) (Bd Luer-Yanira Tip Control Syring) 10 mL syringe 02/06/2020 10:06:04 AM EDT 1 EACH completed [facility] Syringe (Disposable) (Bd Luer-Yanira Tip Control Syring) 10 mL syringe 02/06/2020 10:06:04 AM EDT 1 EACH completed [facility] Citalopram 20 MG Oral Tablet Citalopram 02/06/2020 10:05:46 AM EDT 40 MG completed [facility] Citalopram 20 MG Oral Tablet Citalopram 02/06/2020 10:05:46 AM EDT 40 MG completed [facility] Citalopram 20 MG Oral Tablet Citalopram 02/06/2020 10:05:46 AM EDT 40 MG completed [facility] Citalopram 20 MG Oral Tablet Citalopram 02/06/2020 10:05:46 AM EDT 40 MG completed [facility] Citalopram 20 MG Oral Tablet Citalopram 02/06/2020 10:05:46 AM EDT 40 MG completed [facility] Citalopram 20 MG Oral Tablet Citalopram 02/06/2020 10:05:46 AM EDT 40 MG completed [facility] Testosterone Cypionate 02/06/2020 10:04:59 AM EDT 300 MG completed [facility] Testosterone Cypionate 02/06/2020 10:04:59 AM EDT 300 MG completed [facility] Testosterone Cypionate 02/06/2020 10:04:59 AM EDT 300 MG completed [facility] Testosterone Cypionate 02/06/2020 10:04:59 AM EDT 300 MG completed [facility] Testosterone Cypionate 02/06/2020 10:04:59 AM EDT 300 MG completed [facility] Testosterone Cypionate 02/06/2020 10:04:59 AM EDT 300 MG completed [facility] Divalproex Sodium 500 MG Delayed Release Oral Tablet Divalpr oex 01/25/2020 09:51:24 AM EDT 500 MG completed [facility] Divalproex Sodium 500 MG Delayed Release Oral Tablet Divalpr oex 01/25/2020 09:51:24 AM EDT 500 MG completed [facility] Divalproex Sodium 500 MG Delayed Release Oral Tablet Divalpr oex 01/25/2020 09:51:24 AM EDT 500 MG active [facility] Divalproex Sodium 500 MG Delayed Release Oral Tablet Divalpr oex 01/25/2020 09:51:24 AM EDT 500 MG active [facility] Divalproex Sodium 500 MG Delayed Release Oral Tablet Divalpr oex 01/25/2020 09:51:24 AM EDT 500 MG completed [facility] Divalproex Sodium 500 MG Delayed Release Oral Tablet Divalpr oex 01/25/2020 09:51:24 AM EDT 500 MG completed [facility] Divalproex Sodium 500 MG Delayed Release Oral Tablet Divalpr oex 01/25/2020 09:51:24 AM EDT 500 MG completed [facility] Divalproex Sodium 500 MG Delayed Release Oral Tablet Divalpr oex 01/25/2020 09:51:24 AM EDT 500 MG completed [facility] Divalproex Sodium 500 MG Delayed Release Oral Tablet Divalpr oex 01/25/2020 09:48:58 AM EDT 500 MG completed [facility] Divalproex Sodium 500 MG Delayed Release Oral Tablet Divalpr oex 01/25/2020 09:48:58 AM EDT 500 MG completed [facility] Divalproex Sodium 500 MG Delayed Release Oral Tablet Divalpr oex 01/25/2020 09:48:58 AM EDT 500 MG completed [facility] Divalproex Sodium 500 MG Delayed Release Oral Tablet Divalpr oex 01/25/2020 09:48:58 AM EDT 500 MG completed [facility] Divalproex Sodium 500 MG Delayed Release Oral Tablet Divalpr oex 01/25/2020 09:48:58 AM EDT 500 MG completed [facility] Divalproex Sodium 500 MG Delayed Release Oral Tablet Divalpr oex 01/25/2020 09:48:58 AM EDT 500 MG completed [facility] Divalproex Sodium 500 MG Delayed Release Oral Tablet Divalpr oex 01/25/2020 09:48:58 AM EDT 500 MG completed [facility] Divalproex Sodium 500 MG Delayed Release Oral Tablet Divalpr oex 01/25/2020 09:48:58 AM EDT 500 MG completed [facility] Testosterone Cypionate 01/24/2020 07:27:26 AM EDT 300 MG completed [facility] Testosterone Cypionate 01/24/2020 07:27:26 AM EDT 300 MG active [facility] Testosterone Cypionate 01/24/2020 07:27:26 AM EDT 300 MG completed [facility] Testosterone Cypionate 01/24/2020 07:27:26 AM EDT 300 MG completed [facility] Testosterone Cypionate 01/24/2020 07:27:26 AM EDT 300 MG completed [facility] Testosterone Cypionate 01/24/2020 07:27:26 AM EDT 300 MG completed [facility] Testosterone Cypionate 01/24/2020 07:27:26 AM EDT 300 MG completed [facility] Testosterone Cypionate 01/24/2020 07:27:26 AM EDT 300 MG completed [facility] Syringe (Disposable) (Bd Luer-Yanira Tip Control Syring) 10 mL syringe 01/24/2020 07:27:18 AM EDT 1 EACH completed [facility] Syringe (Disposable) (Bd Luer-Yanira Tip Control Syring) 10 mL syringe 01/24/2020 07:27:18 AM EDT 1 EACH completed [facility] Syringe (Disposable) (Bd Luer-Yanira Tip Control Syring) 10 mL syringe 01/24/2020 07:27:18 AM EDT 1 EACH completed [facility] Syringe (Disposable) (Bd Luer-Yanira Tip Control Syring) 10 mL syringe 01/24/2020 07:27:18 AM EDT 1 EACH completed [facility] Syringe (Disposable) (Bd Luer-Yanira Tip Control Syring) 10 mL syringe 01/24/2020 07:27:18 AM EDT 1 EACH completed [facility] Syringe (Disposable) (Bd Luer-Yanira Tip Control Syring) 10 mL syringe 01/24/2020 07:27:18 AM EDT 1 EACH active [facility] Syringe (Disposable) (Bd Luer-Yanira Tip Control Syring) 10 mL syringe 01/24/2020 07:27:18 AM EDT 1 EACH active [facility] Syringe (Disposable) (Bd Luer-Yanira Tip Control Syring) 10 mL syringe 01/24/2020 07:27:18 AM EDT 1 EACH completed [facility] Alprazolam 0.5 MG Oral Tablet Alprazolam 01/23/2020 04:11:06 PM EDT 0.5 MG completed [facility] Alprazolam 0.5 MG Oral Tablet Alprazolam 01/23/2020 04:11:06 PM EDT 0.5 MG active [facility] Alprazolam 0.5 MG Oral Tablet Alprazolam 01/23/2020 04:11:06 PM EDT 0.5 MG completed [facility] Alprazolam 0.5 MG Oral Tablet Alprazolam 01/23/2020 04:11:06 PM EDT 0.5 MG active [facility] Alprazolam 0.5 MG Oral Tablet Alprazolam 01/23/2020 04:11:06 PM EDT 0.5 MG completed [facility] Alprazolam 0.5 MG Oral Tablet Alprazolam 01/23/2020 04:11:06 PM EDT 0.5 MG completed [facility] Alprazolam 0.5 MG Oral Tablet Alprazolam 01/23/2020 04:11:06 PM EDT 0.5 MG completed [facility] Alprazolam 0.5 MG Oral Tablet Alprazolam 01/23/2020 04:11:06 PM EDT 0.5 MG completed [facility] Lisinopril 40 MG Oral Tablet Lisinopril 01/22/2020 08:50:17 AM EDT 40 MG active [facility] Lisinopril 40 MG Oral Tablet Lisinopril 01/22/2020 08:50:17 AM EDT 40 MG active [facility] Lisinopril 40 MG Oral Tablet Lisinopril 01/22/2020 08:50:17 AM EDT 40 MG active [facility] Lisinopril 40 MG Oral Tablet Lisinopril 01/22/2020 08:50:17 AM EDT 40 MG active [facility] Lisinopril 40 MG Oral Tablet Lisinopril 01/22/2020 08:50:17 AM EDT 40 MG active [facility] Lisinopril 40 MG Oral Tablet Lisinopril 01/22/2020 08:50:17 AM EDT 40 MG active [facility] Lisinopril 40 MG Oral Tablet Lisinopril 01/22/2020 08:50:17 AM EDT 40 MG active [facility] Lisinopril 40 MG Oral Tablet Lisinopril 01/22/2020 08:50:17 AM EDT 40 MG active [facility] Citalopram 20 MG Oral Tablet Citalopram 01/22/2020 08:50:13 AM EDT 40 MG active [facility] Citalopram 20 MG Oral Tablet Citalopram 01/22/2020 08:50:13 AM EDT 40 MG completed [facility] Citalopram 20 MG Oral Tablet Citalopram 01/22/2020 08:50:13 AM EDT 40 MG completed [facility] Citalopram 20 MG Oral Tablet Citalopram 01/22/2020 08:50:13 AM EDT 40 MG completed [facility] Citalopram 20 MG Oral Tablet Citalopram 01/22/2020 08:50:13 AM EDT 40 MG completed [facility] Citalopram 20 MG Oral Tablet Citalopram 01/22/2020 08:50:13 AM EDT 40 MG active [facility] Citalopram 20 MG Oral Tablet Citalopram 01/22/2020 08:50:13 AM EDT 40 MG completed [facility] Citalopram 20 MG Oral Tablet Citalopram 01/22/2020 08:50:13 AM EDT 40 MG completed [facility] Alprazolam 0.5 MG Oral Tablet Alprazolam 12/29/2019 07:41:20 AM EDT 0.5 MG completed [facility] Alprazolam 0.5 MG Oral Tablet Alprazolam 12/29/2019 07:41:20 AM EDT 0.5 MG completed [facility] Alprazolam 0.5 MG Oral Tablet Alprazolam 12/29/2019 07:41:20 AM EDT 0.5 MG completed [facility] Alprazolam 0.5 MG Oral Tablet Alprazolam 12/29/2019 07:41:20 AM EDT 0.5 MG completed [facility] Alprazolam 0.5 MG Oral Tablet Alprazolam 12/29/2019 07:41:20 AM EDT 0.5 MG completed [facility] Alprazolam 0.5 MG Oral Tablet Alprazolam 12/29/2019 07:41:20 AM EDT 0.5 MG completed [facility] Alprazolam 0.5 MG Oral Tablet Alprazolam 12/29/2019 07:41:20 AM EDT 0.5 MG completed [facility] Alprazolam 0.5 MG Oral Tablet Alprazolam 12/29/2019 07:41:20 AM EDT 0.5 MG completed [facility] Fluticasone Propionate (Flonase Allergy Relief) 50 mcg/actuation spray,suspension 12/20/2019 10:26:51 AM EDT 2 SPRAY active [facility] Fluticasone Propionate (Flonase Allergy Relief) 50 mcg/actuation spray,suspension 12/20/2019 10:26:51 AM EDT 2 SPRAY completed [facility] Fluticasone Propionate (Flonase Allergy Relief) 50 mcg/actuation spray,suspension 12/20/2019 10:26:51 AM EDT 2 SPRAY completed [facility] Fluticasone Propionate (Flonase Allergy Relief) 50 mcg/actuation spray,suspension 12/20/2019 10:26:51 AM EDT 2 SPRAY active [facility] Fluticasone Propionate (Flonase Allergy Relief) 50 mcg/actuation spray,suspension 12/20/2019 10:26:51 AM EDT 2 SPRAY completed [facility] Fluticasone Propionate (Flonase Allergy Relief) 50 mcg/actuation spray,suspension 12/20/2019 10:26:51 AM EDT 2 SPRAY completed [facility] Fluticasone Propionate (Flonase Allergy Relief) 50 mcg/actuation spray,suspension 12/20/2019 10:26:51 AM EDT 2 SPRAY completed [facility] Fluticasone Propionate (Flonase Allergy Relief) 50 mcg/actuation spray,suspension 12/20/2019 10:26:51 AM EDT 2 SPRAY completed [facility] Fluticasone Propionate (Flonase Allergy Relief) 50 mcg/actuation spray,suspension 12/20/2019 10:26:51 AM EDT 2 SPRAY completed [facility] Syringe (Disposable) (Bd Luer-Yanira Tip Control Syring) 10 mL syringe 11/29/2019 08:46:58 AM EDT 1 EACH completed [facility] Syringe (Disposable) (Bd Luer-Yanira Tip Control Syring) 10 mL syringe 11/29/2019 08:46:58 AM EDT 1 EACH completed [facility] Syringe (Disposable) (Bd Luer-Yanira Tip Control Syring) 10 mL syringe 11/29/2019 08:46:58 AM EDT 1 EACH completed [facility] Syringe (Disposable) (Bd Luer-Yanira Tip Control Syring) 10 mL syringe 11/29/2019 08:46:58 AM EDT 1 EACH completed [facility] Syringe (Disposable) (Bd Luer-Yanira Tip Control Syring) 10 mL syringe 11/29/2019 08:46:58 AM EDT 1 EACH completed [facility] Syringe (Disposable) (Bd Luer-Yanira Tip Control Syring) 10 mL syringe 11/29/2019 08:46:58 AM EDT 1 EACH completed [facility] Syringe (Disposable) (Bd Luer-Yanira Tip Control Syring) 10 mL syringe 11/29/2019 08:46:58 AM EDT 1 EACH active [facility] Syringe (Disposable) (Bd Luer-Yanira Tip Control Syring) 10 mL syringe 11/29/2019 08:46:58 AM EDT 1 EACH [facility] Syringe (Disposable) (Bd Luer-Yanira Tip Control Syring) 10 mL syringe 11/29/2019 08:46:58 AM EDT 1 EACH [facility] meloxicam 7.5 MG Oral Tablet Meloxicam Meloxicam 11/29/2019 08:4 6:52 AM EDT 7.5 MG active [facility] meloxicam 7.5 MG Oral Tablet Meloxicam Meloxicam 11/29/2019 08:4 6:52 AM EDT 7.5 MG active [facility] meloxicam 7.5 MG Oral Tablet Meloxicam Meloxicam 11/29/2019 08:4 6:52 AM EDT 7.5 MG active [facility] meloxicam 7.5 MG Oral Tablet Meloxicam Meloxicam 11/29/2019 08:4 6:52 AM EDT 7.5 MG active [facility] meloxicam 7.5 MG Oral Tablet Meloxicam Meloxicam 11/29/2019 08:4 6:52 AM EDT 7.5 MG active [facility] meloxicam 7.5 MG Oral Tablet Meloxicam Meloxicam 11/29/2019 08:4 6:52 AM EDT 7.5 MG active [facility] meloxicam 7.5 MG Oral Tablet Meloxicam Meloxicam 11/29/2019 08:4 6:52 AM EDT 7.5 MG active [facility] meloxicam 7.5 MG Oral Tablet Meloxicam Meloxicam 11/29/2019 08:4 6:52 AM EDT 7.5 MG active [facility] meloxicam 7.5 MG Oral Tablet Meloxicam Meloxicam 11/29/2019 08:4 6:52 AM EDT 7.5 MG active [facility] Alprazolam 0.5 MG Oral Tablet Alprazolam 11/29/2019 08:45:38 AM EDT 0.5 MG completed [facility] Alprazolam 0.5 MG Oral Tablet Alprazolam 11/29/2019 08:45:38 AM EDT 0.5 MG completed [facility] Alprazolam 0.5 MG Oral Tablet Alprazolam 11/29/2019 08:45:38 AM EDT 0.5 MG completed [facility] Alprazolam 0.5 MG Oral Tablet Alprazolam 11/29/2019 08:45:38 AM EDT 0.5 MG completed [facility] Alprazolam 0.5 MG Oral Tablet Alprazolam 11/29/2019 08:45:38 AM EDT 0.5 MG completed [facility] Alprazolam 0.5 MG Oral Tablet Alprazolam 11/29/2019 08:45:38 AM EDT 0.5 MG completed [facility] Alprazolam 0.5 MG Oral Tablet Alprazolam 11/29/2019 08:45:38 AM EDT 0.5 MG completed [facility] Alprazolam 0.5 MG Oral Tablet Alprazolam 11/29/2019 08:45:38 AM EDT 0.5 MG completed [facility] Alprazolam 0.5 MG Oral Tablet Alprazolam 11/29/2019 08:45:38 AM EDT 0.5 MG active [facility] Testosterone Cypionate 11/29/2019 08:45:23 AM EDT 300 MG active [facility] Testosterone Cypionate 11/29/2019 08:45:23 AM EDT 300 [facility] 11/29/2019 08:45:23 AM EDT 300 MG completed [facility] Testosterone Cypionate 11/29/2019 08:45:23 AM EDT 300 MG completed [facility] Testosterone Cypionate 11/29/2019 08:45:23 AM EDT 300 MG [facility] Testosterone Cypionate 11/29/2019 08:45:23 AM EDT 300 MG completed [facility] Testosterone Cypionate 11/29/2019 08:45:23 AM EDT 300 MG completed [facility] Testosterone Cypionate 11/29/2019 08:45:23 AM EDT 300 MG completed [facility] Testosterone Cypionate 11/29/2019 08:45:23 AM EDT 300 MG completed [facility] Testosterone Cypionate 11/29/2019 08:34:48 AM EDT 300 MG completed [facility] Testosterone Cypionate 11/29/2019 08:34:48 AM EDT 300 MG completed [facility] Testosterone Cypionate 11/29/2019 08:34:48 AM EDT 300 MG completed [facility] Testosterone Cypionate 11/29/2019 08:34:48 AM EDT 300 MG completed [facility] Testosterone Cypionate 11/29/2019 08:34:48 AM EDT 300 MG completed [facility] Testosterone Cypionate 11/29/2019 08:34:48 AM EDT 300 MG completed [facility] Testosterone Cypionate 11/29/2019 08:34:48 AM EDT 300 MG completed [facility] Testosterone Cypionate 11/29/2019 08:34:48 AM EDT 300 MG completed [facility] Testosterone Cypionate 11/29/2019 08:34:48 AM EDT 300 MG completed [facility] Alprazolam 0.5 MG Oral Tablet Alprazolam 11/29/2019 08:34:44 AM EDT 0.5 MG completed [facility] Alprazolam 0.5 MG Oral Tablet Alprazolam 11/29/2019 08:34:44 AM EDT 0.5 MG completed [facility] Alprazolam 0.5 MG Oral Tablet Alprazolam 11/29/2019 08:34:44 AM EDT 0.5 MG completed [facility] Alprazolam 0.5 MG Oral Tablet Alprazolam 11/29/2019 08:34:44 AM EDT 0.5 MG completed [facility] Alprazolam 0.5 MG Oral Tablet Alprazolam 11/29/2019 08:34:44 AM EDT 0.5 MG completed [facility] Alprazolam 0.5 MG Oral Tablet Alprazolam 11/29/2019 08:34:44 AM EDT 0.5 MG completed [facility] Alprazolam 0.5 MG Oral Tablet Alprazolam 11/29/2019 08:34:44 AM EDT 0.5 MG completed [facility] Alprazolam 0.5 MG Oral Tablet Alprazolam 11/29/2019 08:34:44 AM EDT 0.5 MG completed [facility] Alprazolam 0.5 MG Oral Tablet Alprazolam 11/29/2019 08:34:44 AM EDT 0.5 MG completed [facility] Syringe (Disposable) (Bd Luer-Yanira Tip Control Syring) 10 mL syringe 11/29/2019 08:34:39 AM EDT 1 EACH completed [facility] Syringe (Disposable) (Bd Luer-Yanira Tip Control Syring) 10 mL syringe 11/29/2019 08:34:39 AM EDT 1 EACH completed [facility] Syringe (Disposable) (Bd Luer-Yanira Tip Control Syring) 10 mL syringe 11/29/2019 08:34:39 AM EDT 1 EACH completed [facility] Syringe (Disposable) (Bd Luer-Yanira Tip Control Syring) 10 mL syringe 11/29/2019 08:34:39 AM EDT 1 EACH completed [facility] Syringe (Disposable) (Bd Luer-Yanira Tip Control Syring) 10 mL syringe 11/29/2019 08:34:39 AM EDT 1 EACH completed [facility] Syringe (Disposable) (Bd Luer-Yanira Tip Control Syring) 10 mL syringe 11/29/2019 08:34:39 AM EDT 1 EACH completed [facility] Syringe (Disposable) (Bd Luer-Yanira Tip Control Syring) 10 mL syringe 11/29/2019 08:34:39 AM EDT 1 EACH completed [facility] Syringe (Disposable) (Bd Luer-Yanira Tip Control Syring) 10 mL syringe 11/29/2019 08:34:39 AM EDT 1 EACH completed [facility] Syringe (Disposable) (Bd Luer-Yanira Tip Control Syring) 10 mL syringe 11/29/2019 08:34:39 AM EDT 1 EACH completed [facility] meloxicam 7.5 MG Oral Tablet Meloxicam Meloxicam 11/29/2019 08:1 6:51 AM EDT 7.5 MG completed [facility] meloxicam 7.5 MG Oral Tablet Meloxicam Meloxicam 11/29/2019 08:1 6:51 AM EDT 7.5 MG completed [facility] meloxicam 7.5 MG Oral Tablet Meloxicam Meloxicam 11/29/2019 08:1 6:51 AM EDT 7.5 MG completed [facility] meloxicam 7.5 MG Oral Tablet Meloxicam Meloxicam 11/29/2019 08:1 6:51 AM EDT 7.5 MG completed [facility] meloxicam 7.5 MG Oral Tablet Meloxicam Meloxicam 11/29/2019 08:1 6:51 AM EDT 7.5 MG completed [facility] meloxicam 7.5 MG Oral Tablet Meloxicam Meloxicam 11/29/2019 08:1 6:51 AM EDT 7.5 MG completed [facility] meloxicam 7.5 MG Oral Tablet Meloxicam Meloxicam 11/29/2019 08:1 6:51 AM EDT 7.5 MG completed [facility] meloxicam 7.5 MG Oral Tablet Meloxicam Meloxicam 11/29/2019 08:1 6:51 AM EDT 7.5 MG completed [facility] meloxicam 7.5 MG Oral Tablet Meloxicam Meloxicam 11/29/2019 08:1 6:51 AM EDT 7.5 MG completed [facility] Citalopram 20 MG Oral Tablet Citalopram 11/13/2019 03:47:54 PM EDT 40 MG active [facility] Citalopram 20 MG Oral Tablet Citalopram 11/13/2019 03:47:54 PM EDT 40 MG completed [facility] Citalopram 20 MG Oral Tablet Citalopram 11/13/2019 03:47:54 PM EDT 40 MG completed [facility] Citalopram 20 MG Oral Tablet Citalopram 11/13/2019 03:47:54 PM EDT 40 MG completed [facility] Citalopram 20 MG Oral Tablet Citalopram 11/13/2019 03:47:54 PM EDT 40 MG completed [facility] Citalopram 20 MG Oral Tablet Citalopram 11/13/2019 03:47:54 PM EDT 40 MG completed [facility] Citalopram 20 MG Oral Tablet Citalopram 11/13/2019 03:47:54 PM EDT 40 MG completed [facility] Citalopram 20 MG Oral Tablet Citalopram 11/13/2019 03:47:54 PM EDT 40 MG completed [facility] Citalopram 20 MG Oral Tablet Citalopram 11/13/2019 03:47:54 PM EDT 40 MG completed [facility] gabapentin 400 MG Oral Capsule Gabapentin Gabapentin 2019 03:46:39 PM EDT 400 MG completed [facility] Divalproex Sodium 250 MG Delayed Release Oral Tablet Divalpr oex 11/13/2019 03:46:07 PM EDT 250 MG completed [facility] Divalproex Sodium 250 MG Delayed Release Oral Tablet Divalpr oex 11/13/2019 03:46:07 PM EDT 250 MG completed [facility] Divalproex Sodium 250 MG Delayed Release Oral Tablet Divalpr oex 11/13/2019 03:46:07 PM EDT 250 MG completed [facility] Divalproex Sodium 250 MG Delayed Release Oral Tablet Divalpr oex 11/13/2019 03:46:07 PM EDT 250 MG completed [facility] Divalproex Sodium 250 MG Delayed Release Oral Tablet Divalpr oex 11/13/2019 03:46:07 PM EDT 250 MG completed [facility] Divalproex Sodium 250 MG Delayed Release Oral Tablet Divalpr oex 11/13/2019 03:46:07 PM EDT 250 MG completed [facility] Divalproex Sodium 250 MG Delayed Release Oral Tablet Divalpr oex 11/13/2019 03:46:07 PM EDT 250 MG completed [facility] Divalproex Sodium 250 MG Delayed Release Oral Tablet Divalpr oex 11/13/2019 03:46:07 PM EDT 250 MG completed [facility] Divalproex Sodium 250 MG Delayed Release Oral Tablet Divalpr oex 11/13/2019 03:46:07 PM EDT 250 MG completed [facility] Citalopram 20 MG Oral Tablet Citalopram 11/13/2019 03:45:33 PM EDT 40 MG completed [facility] Citalopram 20 MG Oral Tablet Citalopram 11/13/2019 03:45:33 PM EDT 40 MG completed [facility] Citalopram 20 MG Oral Tablet Citalopram 11/13/2019 03:45:33 PM EDT 40 MG completed [facility] Citalopram 20 MG Oral Tablet Citalopram 11/13/2019 03:45:33 PM EDT 40 MG completed [facility] Citalopram 20 MG Oral Tablet Citalopram 11/13/2019 03:45:33 PM EDT 40 MG completed [facility] Citalopram 20 MG Oral Tablet Citalopram 11/13/2019 03:45:33 PM EDT 40 MG completed [facility] Citalopram 20 MG Oral Tablet Citalopram 11/13/2019 03:45:33 PM EDT 40 MG completed [facility] Citalopram 20 MG Oral Tablet Citalopram 11/13/2019 03:45:33 PM EDT 40 MG completed [facility] Citalopram 20 MG Oral Tablet Citalopram 11/13/2019 03:45:33 PM EDT 40 MG completed [facility] Azelastine HCL (Nasal) Azelastine HCL (Nasal) 11/09/2019 12:00:00 AM E DT active [facility] Fluticasone Propionate Nasal Martha Fluticasone Propionate Na makenna Martha 11/09/2019 12:00:00 AM EDT active [facility] ([facility] Testosterone Cypionate 10/19/2019 12:24:56 PM EDT 300 MG completed [facility] Testosterone Cypionate 10/19/2019 12:24:56 PM EDT 300 MG completed [facility] Testosterone Cypionate 10/19/2019 12:24:56 PM EDT 300 MG completed [facility] Testosterone Cypionate 10/19/2019 12:24:56 PM EDT 300 MG completed [facility] Testosterone Cypionate 10/19/2019 12:24:56 PM EDT 300 MG completed [facility] Testosterone Cypionate 10/19/2019 12:24:56 PM EDT 300 MG completed [facility] Testosterone Cypionate 10/19/2019 12:24:56 PM EDT 300 MG completed [facility] Testosterone Cypionate 10/19/2019 12:24:56 PM EDT 300 MG completed [facility] Testosterone Cypionate 10/19/2019 12:24:56 PM EDT 300 MG completed [facility] Syringe (Disposable) (Bd Luer-Yanira Tip Control Syring) 10 mL syringe 10/19/2019 11:10:00 AM EDT 1 EACH completed [facility] Syringe (Disposable) (Bd Luer-Yanira Tip Control Syring) 10 mL syringe 10/19/2019 11:10:00 AM EDT 1 EACH completed [facility] Syringe (Disposable) (Bd Luer-Yanira Tip Control Syring) 10 mL syringe 10/19/2019 11:10:00 AM EDT 1 EACH completed [facility] Syringe (Disposable) (Bd Luer-Yanira Tip Control Syring) 10 mL syringe 10/19/2019 11:10:00 AM EDT 1 EACH completed [facility] Syringe (Disposable) (Bd Luer-Yanira Tip Control Syring) 10 mL syringe 10/19/2019 11:10:00 AM EDT 1 EACH completed [facility] Syringe (Disposable) (Bd Luer-Yanira Tip Control Syring) 10 mL syringe 10/19/2019 11:10:00 AM EDT 1 EACH completed [facility] Syringe (Disposable) (Bd Luer-Yanira Tip Control Syring) 10 mL syringe 10/19/2019 11:10:00 AM EDT 1 EACH completed [facility] Syringe (Disposable) (Bd Luer-Yanira Tip Control Syring) 10 mL syringe 10/19/2019 11:10:00 AM EDT 1 EACH completed [facility] Syringe (Disposable) (Bd Luer-Yanira Tip Control Syring) 10 mL syringe 10/19/2019 11:10:00 AM EDT 1 EACH completed [facility] Trazodone Hydrochloride 50 MG Oral Tablet Trazodone 2019 10:02:22 AM EDT 50 MG completed [facility] Trazodone Hydrochloride 50 MG Oral Tablet Trazodone 2019 10:02:22 AM EDT 50 MG completed [facility] Trazodone Hydrochloride 50 MG Oral Tablet Trazodone 2019 10:02:22 AM EDT 50 MG completed [facility] Trazodone Hydrochloride 50 MG Oral Tablet Trazodone 2019 10:02:22 AM EDT 50 MG completed [facility] Trazodone Hydrochloride 50 MG Oral Tablet Trazodone 2019 10:02:22 AM EDT 50 MG completed [facility] Trazodone Hydrochloride 50 MG Oral Tablet Trazodone 2019 10:02:22 AM EDT 50 MG completed [facility] Trazodone Hydrochloride 50 MG Oral Tablet Trazodone 2019 10:02:22 AM EDT 50 MG completed [facility] Trazodone Hydrochloride 50 MG Oral Tablet Trazodone 2019 10:02:22 AM EDT 50 MG completed [facility] Trazodone Hydrochloride 50 MG Oral Tablet Trazodone 2019 10:02:22 AM EDT 50 MG completed [facility] Trazodone Hydrochloride 50 MG Oral Tablet Trazodone 2019 10:02:22 AM EDT 50 MG completed [facility] Testosterone Cypionate 08/21/2019 09:55:23 AM EDT 300 MG completed [facility] Testosterone Cypionate 08/21/2019 09:55:23 AM EDT 300 MG completed [facility] Testosterone Cypionate 08/21/2019 09:55:23 AM EDT 300 MG active [facility] Testosterone Cypionate 08/21/2019 09:55:23 AM EDT 300 MG completed [facility] Testosterone Cypionate 08/21/2019 09:55:23 AM EDT 300 MG completed [facility] Testosterone Cypionate 08/21/2019 09:55:23 AM EDT 300 MG completed [facility] Testosterone Cypionate 08/21/2019 09:55:23 AM EDT 300 MG completed [facility] Testosterone Cypionate 08/21/2019 09:55:23 AM EDT 300 MG completed [facility] Testosterone Cypionate 08/21/2019 09:55:23 AM EDT 300 MG completed [facility] Testosterone Cypionate 08/21/2019 09:55:23 AM EDT 300 MG completed [facility] Loratadine 10 MG Oral Tablet Loratadine 07/12/2019 10:16:12 AM EST 10 MG active [facility] Loratadine 10 MG Oral Tablet Loratadine (Allergy Relief (Loratadine)) 10 mg tablet Loratadine (Allergy Relief (Loratadine)) 10 mg tablet 07/12/2019 10:16:12 AM EST 10 MG active [facility] Loratadine 10 MG Oral Tablet Loratadine (Allergy Relief (Loratadine)) 10 mg tablet Loratadine (Allergy Relief (Loratadine)) 10 mg tablet 07/12/2019 10:16:12 AM EST 10 MG completed [facility] Loratadine 10 MG Oral Tablet Loratadine (Allergy Relief (Loratadine)) 10 mg tablet Loratadine (Allergy Relief (Loratadine)) 10 mg tablet 07/12/2019 10:16:12 AM EST 10 MG completed [facility] Loratadine 10 MG Oral Tablet Loratadine (Allergy Relief (Loratadine)) 10 mg tablet Loratadine (Allergy Relief (Loratadine)) 10 mg tablet 07/12/2019 10:16:12 AM EST 10 MG completed [facility] Loratadine 10 MG Oral Tablet Loratadine (Allergy Relief (Loratadine)) 10 mg tablet Loratadine (Allergy Relief (Loratadine)) 10 mg tablet 07/12/2019 10:16:12 AM EST 10 MG completed [facility] Loratadine 10 MG Oral Tablet Loratadine (Allergy Relief (Loratadine)) 10 mg tablet Loratadine (Allergy Relief (Loratadine)) 10 mg tablet 07/12/2019 10:16:12 AM EST 10 MG completed [facility] Loratadine 10 MG Oral Tablet Loratadine (Allergy Relief (Loratadine)) 10 mg tablet Loratadine (Allergy Relief (Loratadine)) 10 mg tablet 07/12/2019 10:16:12 AM EST 10 MG completed [facility] Loratadine 10 MG Oral Tablet Loratadine (Allergy Relief (Loratadine)) 10 mg tablet Loratadine (Allergy Relief (Loratadine)) 10 mg tablet 07/12/2019 10:16:12 AM EST 10 MG active [facility] Loratadine 10 MG Oral Tablet Loratadine (Allergy Relief (Loratadine)) 10 mg tablet Loratadine (Allergy Relief (Loratadine)) 10 mg tablet 07/12/2019 10:16:12 AM EST 10 MG completed [facility] Loratadine 10 MG Oral Tablet Loratadine (Allergy Relief (Loratadine)) 10 mg tablet Loratadine (Allergy Relief (Loratadine)) 10 mg tablet 07/12/2019 10:15:06 AM EST 10 MG completed [facility] Loratadine 10 MG Oral Tablet Loratadine 07/12/2019 10:15:06 AM EST 10 MG completed [facility] Loratadine 10 MG Oral Tablet Loratadine (Allergy Relief (Loratadine)) 10 mg tablet Loratadine (Allergy Relief (Loratadine)) 10 mg tablet 07/12/2019 10:15:06 AM EST 10 MG completed [facility] Loratadine 10 MG Oral Tablet Loratadine (Allergy Relief (Loratadine)) 10 mg tablet Loratadine (Allergy Relief (Loratadine)) 10 mg tablet 07/12/2019 10:15:06 AM EST 10 MG completed [facility] Loratadine 10 MG Oral Tablet Loratadine (Allergy Relief (Loratadine)) 10 mg tablet Loratadine (Allergy Relief (Loratadine)) 10 mg tablet 07/12/2019 10:15:06 AM EST 10 MG completed [facility] Loratadine 10 MG Oral Tablet Loratadine (Allergy Relief (Loratadine)) 10 mg tablet Loratadine (Allergy Relief (Loratadine)) 10 mg tablet 07/12/2019 10:15:06 AM EST 10 MG completed [facility] Loratadine 10 MG Oral Tablet Loratadine (Allergy Relief (Loratadine)) 10 mg tablet Loratadine (Allergy Relief (Loratadine)) 10 mg tablet 07/12/2019 10:15:06 AM EST 10 MG completed [facility] Loratadine 10 MG Oral Tablet Loratadine (Allergy Relief (Loratadine)) 10 mg tablet Loratadine (Allergy Relief (Loratadine)) 10 mg tablet 07/12/2019 10:15:06 AM EST 10 MG completed [facility] Loratadine 10 MG Oral Tablet Loratadine (Allergy Relief (Loratadine)) 10 mg tablet Loratadine (Allergy Relief (Loratadine)) 10 mg tablet 07/12/2019 10:15:06 AM EST 10 MG completed [facility] Loratadine 10 MG Oral Tablet Loratadine (Allergy Relief (Loratadine)) 10 mg tablet Loratadine (Allergy Relief (Loratadine)) 10 mg tablet 07/12/2019 10:15:06 AM EST 10 MG completed [facility] montelukast 10 MG Oral Tablet Montelukast Montelukast 07/12/2019 10:14:59 AM EST 10 MG completed [facility] montelukast 10 MG Oral Tablet Montelukast Montelukast 07/12/2019 10:14:59 AM EST 10 MG completed [facility] montelukast 10 MG Oral Tablet Montelukast Montelukast 07/12/2019 10:14:59 AM EST 10 MG completed [facility] montelukast 10 MG Oral Tablet Montelukast Montelukast 07/12/2019 10:14:59 AM EST 10 MG active [facility] montelukast 10 MG Oral Tablet Montelukast Montelukast 07/12/2019 10:14:59 AM EST 10 MG completed [facility] montelukast 10 MG Oral Tablet Montelukast Montelukast 07/12/2019 10:14:59 AM EST 10 MG active [facility] montelukast 10 MG Oral Tablet Montelukast Montelukast 07/12/2019 10:14:59 AM EST 10 MG completed [facility] montelukast 10 MG Oral Tablet Montelukast Montelukast 07/12/2019 10:14:59 AM EST 10 MG completed [facility] montelukast 10 MG Oral Tablet Montelukast Montelukast 07/12/2019 10:14:59 AM EST 10 MG completed [facility] montelukast 10 MG Oral Tablet Montelukast Montelukast 07/12/2019 10:14:59 AM EST 10 MG active [facility] Testosterone Cypionate 06/27/2019 08:37:11 AM EST 300 MG completed [facility] Testosterone Cypionate 06/27/2019 08:37:11 AM EST 300 MG active [facility] Testosterone Cypionate 06/27/2019 08:37:11 AM EST 300 MG completed [facility] Testosterone Cypionate 06/27/2019 08:37:11 AM EST 300 MG completed [facility] Testosterone Cypionate 06/27/2019 08:37:11 AM EST 300 MG completed [facility] Testosterone Cypionate 06/27/2019 08:37:11 AM EST 300 MG completed [facility] Testosterone Cypionate 06/27/2019 08:37:11 AM EST 300 MG completed [facility] Testosterone Cypionate 06/27/2019 08:37:11 AM EST 300 MG completed [facility] Testosterone Cypionate 06/27/2019 08:37:11 AM EST 300 MG completed [facility] Testosterone Cypionate 06/27/2019 08:37:11 AM EST 300 MG completed [facility] Testosterone Cypionate 06/27/2019 08:37:11 AM EST 300 MG completed [facility] Syringe (Disposable) (Bd Luer-Yanira Tip Control Syring) 10 mL syringe 06/27/2019 08:37:00 AM EST 1 EACH completed [facility] Syringe (Disposable) (Bd Luer-Yanira Tip Control Syring) 10 mL syringe 06/27/2019 08:37:00 AM EST 1 EACH completed [facility] Syringe (Disposable) (Bd Luer-Yanira Tip Control Syring) 10 mL syringe 06/27/2019 08:37:00 AM EST 1 EACH completed [facility] Syringe (Disposable) (Bd Luer-Yanira Tip Control Syring) 10 mL syringe 06/27/2019 08:37:00 AM EST 1 EACH completed [facility] Syringe (Disposable) 06/27/2019 08:37:00 AM EST 1 EACH active [facility] Syringe (Disposable) 06/27/2019 08:37:00 AM EST 1 EACH active [facility] Syringe (Disposable) (Bd Luer-Yanira Tip Control Syring) 10 mL syringe 06/27/2019 08:37:00 AM EST 1 EACH completed [facility] Syringe (Disposable) (Bd Luer-Yanira Tip Control Syring) 10 mL syringe 06/27/2019 08:37:00 AM EST 1 EACH completed [facility] Syringe (Disposable) (Bd Luer-Yanira Tip Control Syring) 10 mL syringe 06/27/2019 08:37:00 AM EST 1 EACH completed [facility] Syringe (Disposable) (Bd Luer-Yanira Tip Control Syring) 10 mL syringe 06/27/2019 08:37:00 AM EST 1 EACH completed [facility] Syringe (Disposable) (Bd Luer-Yanira Tip Control Syring) 10 mL syringe 06/27/2019 08:37:00 AM EST 1 EACH completed [facility] Testosterone Cypionate 04/28/2019 07:29:49 AM EST 300 MG completed [facility] Testosterone Cypionate 04/28/2019 07:29:49 AM EST 300 MG completed [facility] Testosterone Cypionate 04/28/2019 07:29:49 AM EST 300 MG completed [facility] Testosterone Cypionate 04/28/2019 07:29:49 AM EST 300 MG completed [facility] Testosterone Cypionate 04/28/2019 07:29:49 AM EST 300 MG completed [facility] Testosterone Cypionate 04/28/2019 07:29:49 AM EST 300 MG completed [facility] Testosterone Cypionate 04/28/2019 07:29:49 AM EST 300 MG completed [facility] Testosterone Cypionate 04/28/2019 07:29:49 AM EST 300 MG completed [facility] Testosterone Cypionate 04/28/2019 07:29:49 AM EST 300 MG completed [facility] Testosterone Cypionate 04/28/2019 07:29:49 AM EST 300 MG completed [facility] Testosterone Cypionate 04/28/2019 07:29:49 AM EST 300 MG completed [facility] Syringe (Disposable) (Bd Luer-Yanira Tip Control Syring) 10 mL syringe 04/28/2019 07:29:08 AM EST 1 EACH completed [facility] Syringe (Disposable) 04/28/2019 07:29:08 AM EST 1 EACH completed [facility] Syringe (Disposable) (Bd Luer-Yanira Tip Control Syring) 10 mL syringe 04/28/2019 07:29:08 AM EST 1 EACH completed [facility] Syringe (Disposable) (Bd Luer-Yanira Tip Control Syring) 10 mL syringe 04/28/2019 07:29:08 AM EST 1 EACH completed [facility] Syringe (Disposable) 04/28/2019 07:29:08 AM EST 1 EACH completed [facility] Syringe (Disposable) (Bd Luer-Yanira Tip Control Syring) 10 mL syringe 04/28/2019 07:29:08 AM EST 1 EACH completed [facility] Syringe (Disposable) (Bd Luer-Yanira Tip Control Syring) 10 mL syringe 04/28/2019 07:29:08 AM EST 1 EACH completed [facility] Syringe (Disposable) (Bd Luer-Yanira Tip Control Syring) 10 mL syringe 04/28/2019 07:29:08 AM EST 1 EACH completed [facility] Syringe (Disposable) (Bd Luer-Yanira Tip Control Syring) 10 mL syringe 04/28/2019 07:29:08 AM EST 1 EACH completed [facility] Syringe (Disposable) (Bd Luer-Yanira Tip Control Syring) 10 mL syringe 04/28/2019 07:29:08 AM EST 1 EACH completed [facility] Syringe (Disposable) (Bd Luer-Yanira Tip Control Syring) 10 mL syringe 04/28/2019 07:29:08 AM EST 1 EACH completed [facility] Alprazolam 0.5 MG Oral Tablet Alprazolam 02/16/2019 10:08:03 AM EDT 0.5 MG completed [facility] Alprazolam 0.5 MG Oral Tablet Alprazolam 02/16/2019 10:08:03 AM EDT 0.5 MG completed [facility] Alprazolam 0.5 MG Oral Tablet Alprazolam 02/16/2019 10:08:03 AM EDT 0.5 MG completed [facility] Alprazolam 0.5 MG Oral Tablet Alprazolam 02/16/2019 10:08:03 AM EDT 0.5 MG completed [facility] Alprazolam 0.5 MG Oral Tablet Alprazolam 02/16/2019 10:08:03 AM EDT 0.5 MG completed [facility] Alprazolam 0.5 MG Oral Tablet Alprazolam 02/16/2019 10:08:03 AM EDT 0.5 MG completed [facility] Alprazolam 0.5 MG Oral Tablet Alprazolam 02/16/2019 10:08:03 AM EDT 0.5 MG completed [facility] Alprazolam 0.5 MG Oral Tablet Alprazolam 02/16/2019 10:08:03 AM EDT 0.5 MG completed [facility] Alprazolam 0.5 MG Oral Tablet Alprazolam 02/16/2019 10:08:03 AM EDT 0.5 MG completed [facility] Lisinopril 40 MG Oral Tablet Lisinopril 01/27/2019 02:55:33 PM EDT 40 MG completed [facility] Lisinopril 40 MG Oral Tablet Lisinopril 01/27/2019 02:55:33 PM EDT 40 MG completed [facility] Lisinopril 40 MG Oral Tablet Lisinopril 01/27/2019 02:55:33 PM EDT 40 MG completed [facility] Lisinopril 40 MG Oral Tablet Lisinopril 01/27/2019 02:55:33 PM EDT 40 MG completed [facility] Lisinopril 40 MG Oral Tablet Lisinopril 01/27/2019 02:55:33 PM EDT 40 MG completed [facility] Lisinopril 40 MG Oral Tablet Lisinopril 01/27/2019 02:55:33 PM EDT 40 MG completed [facility] Lisinopril 40 MG Oral Tablet Lisinopril 01/27/2019 02:55:33 PM EDT 40 MG completed [facility] Lisinopril 40 MG Oral Tablet Lisinopril 01/27/2019 02:55:33 PM EDT 40 MG completed [facility] montelukast 10 MG Oral Tablet Montelukast Montelukast 01/11/2019 08:44:39 AM EDT 10 MG completed [facility] montelukast 10 MG Oral Tablet Montelukast Montelukast 01/11/2019 08:44:39 AM EDT 10 MG completed [facility] montelukast 10 MG Oral Tablet Montelukast Montelukast 01/11/2019 08:44:39 AM EDT 10 MG completed [facility] montelukast 10 MG Oral Tablet Montelukast Montelukast 01/11/2019 08:44:39 AM EDT 10 MG completed [facility] montelukast 10 MG Oral Tablet Montelukast Montelukast 01/11/2019 08:44:39 AM EDT 10 MG completed [facility] montelukast 10 MG Oral Tablet Montelukast Montelukast 01/11/2019 08:44:39 AM EDT 10 MG completed [facility] montelukast 10 MG Oral Tablet Montelukast Montelukast 01/11/2019 08:44:39 AM EDT 10 MG completed [facility] montelukast 10 MG Oral Tablet Montelukast Montelukast 01/11/2019 08:44:39 AM EDT 10 MG completed [facility] montelukast 10 MG Oral Tablet Montelukast Montelukast 01/11/2019 08:44:39 AM EDT 10 MG completed [facility] montelukast 10 MG Oral Tablet Montelukast Montelukast 01/11/2019 08:44:39 AM EDT 10 MG completed [facility] montelukast 10 MG Oral Tablet Montelukast Montelukast 01/11/2019 08:44:39 AM EDT 10 MG completed [facility] Citalopram 20 MG Oral Tablet Citalopram 01/11/2019 08:36:56 AM EDT 30 MG completed [facility] Citalopram 20 MG Oral Tablet Citalopram 01/11/2019 08:36:56 AM EDT 30 MG completed [facility] Citalopram 20 MG Oral Tablet Citalopram 01/11/2019 08:36:56 AM EDT 30 MG completed [facility] Citalopram 20 MG Oral Tablet Citalopram 01/11/2019 08:36:56 AM EDT 30 MG completed [facility] Citalopram 20 MG Oral Tablet Citalopram 01/11/2019 08:36:56 AM EDT 30 MG completed [facility] Citalopram 20 MG Oral Tablet Citalopram 01/11/2019 08:36:56 AM EDT 30 MG completed [facility] Citalopram 20 MG Oral Tablet Citalopram 01/11/2019 08:36:56 AM EDT 30 MG completed [facility] Citalopram 20 MG Oral Tablet Citalopram 01/11/2019 08:36:56 AM EDT 30 MG completed [facility] Citalopram 20 MG Oral Tablet Citalopram 01/11/2019 08:36:56 AM EDT 30 MG completed [facility] meloxicam 7.5 MG Oral Tablet Meloxicam Meloxicam 12/06/2018 09:1 0:22 AM EDT 7.5 MG completed [facility] meloxicam 7.5 MG Oral Tablet Meloxicam Meloxicam 12/06/2018 09:1 0:22 AM EDT 7.5 MG completed [facility] meloxicam 7.5 MG Oral Tablet Meloxicam Meloxicam 12/06/2018 09:1 0:22 AM EDT 7.5 MG completed [facility] meloxicam 7.5 MG Oral Tablet Meloxicam Meloxicam 12/06/2018 09:1 0:22 AM EDT 7.5 MG completed [facility] meloxicam 7.5 MG Oral Tablet Meloxicam Meloxicam 12/06/2018 09:1 0:22 AM EDT 7.5 MG completed [facility] meloxicam 7.5 MG Oral Tablet Meloxicam Meloxicam 12/06/2018 09:1 0:22 AM EDT 7.5 MG completed [facility] meloxicam 7.5 MG Oral Tablet Meloxicam Meloxicam 12/06/2018 09:1 0:22 AM EDT 7.5 MG completed [facility] meloxicam 7.5 MG Oral Tablet Meloxicam Meloxicam 12/06/2018 09:1 0:22 AM EDT 7.5 MG completed [facility] meloxicam 7.5 MG Oral Tablet Meloxicam Meloxicam 12/06/2018 09:1 0:22 AM EDT 7.5 MG completed [facility] Divalproex Sodium 250 MG Delayed Release Oral Tablet Divalpr oex 12/06/2018 09:01:16 AM EDT completed [facility] Divalproex Sodium 250 MG Delayed Release Oral Tablet Divalpr oex 12/06/2018 09:01:16 AM EDT completed [facility] Divalproex Sodium 250 MG Delayed Release Oral Tablet Divalpr oex 12/06/2018 09:01:16 AM EDT completed [facility] Divalproex Sodium 250 MG Delayed Release Oral Tablet Divalpr oex 12/06/2018 09:01:16 AM EDT completed [facility] Divalproex Sodium 250 MG Delayed Release Oral Tablet Divalpr oex 12/06/2018 09:01:16 AM EDT completed [facility] Divalproex Sodium 250 MG Delayed Release Oral Tablet Divalpr oex 12/06/2018 09:01:16 AM EDT completed [facility] Divalproex Sodium 250 MG Delayed Release Oral Tablet Divalpr oex 12/06/2018 09:01:16 AM EDT completed [facility] Divalproex Sodium 250 MG Delayed Release Oral Tablet Divalpr oex 12/06/2018 09:01:16 AM EDT completed [facility] Divalproex Sodium 250 MG Delayed Release Oral Tablet Divalpr oex 12/06/2018 09:01:16 AM EDT completed [facility] 24 HR Bupropion Hydrochloride 300 MG Extended Release Oral Tablet Bupropion Hcl Bupropion Hcl 09/06/2018 09:28:00 AM EDT 300 MG complete [facility] 24 HR Bupropion Hydrochloride 300 MG Extended Release Oral Tablet Bupropion Hcl Bupropion Hcl 09/06/2018 09:28:00 AM EDT 300 MG complete [facility] 24 HR Bupropion Hydrochloride 300 MG Extended Release Oral Tablet Bupropion Hcl Bupropion Hcl 09/06/2018 09:28:00 AM EDT 300 MG complete [facility] 24 HR Bupropion Hydrochloride 300 MG Extended Release Oral Tablet Bupropion Hcl Bupropion Hcl 09/06/2018 09:28:00 AM EDT 300 MG complete [facility] 24 HR Bupropion Hydrochloride 300 MG Extended Release Oral Tablet Bupropion Hcl Bupropion Hcl 09/06/2018 09:28:00 AM EDT 300 MG complete [facility] 24 HR Bupropion Hydrochloride 300 MG Extended Release Oral Tablet Bupropion Hcl Bupropion Hcl 09/06/2018 09:28:00 AM EDT 300 MG complete [facility] 24 HR Bupropion Hydrochloride 300 MG Extended Release Oral Tablet Bupropion Hcl Bupropion Hcl 09/06/2018 09:28:00 AM EDT 300 MG complete [facility] 24 HR Bupropion Hydrochloride 300 MG Extended Release Oral Tablet Bupropion Hcl Bupropion Hcl 09/06/2018 09:28:00 AM EDT 300 MG complete [facility] 24 HR Bupropion Hydrochloride 300 MG Extended Release Oral Tablet Bupropion Hcl Bupropion Hcl 09/06/2018 09:28:00 AM EDT 300 MG complete d [facility] 24 HR Bupropion Hydrochloride 300 MG Extended Release Oral Tablet Bupropion Hcl Bupropion Hcl 09/06/2018 09:28:00 AM EDT 300 MG complete d [facility] 24 HR Bupropion Hydrochloride 300 MG Extended Release Oral Tablet Bupropion Hcl Bupropion Hcl 09/06/2018 09:28:00 AM EDT 300 MG complete d [facility] Trazodone Hydrochloride 50 MG Oral Tablet Trazodone Hcl Traz odone Hcl 07/08/2018 08:40:00 AM EST completed [facility] Trazodone Hydrochloride 50 MG Oral Tablet Trazodone Hcl Traz odone Hcl 07/08/2018 08:40:00 AM EST completed [facility] Trazodone Hydrochloride 50 MG Oral Tablet Trazodone Hcl Traz odone Hcl 07/08/2018 08:40:00 AM EST completed [facility] Trazodone Hydrochloride 50 MG Oral Tablet Trazodone Hcl Traz odone Hcl 07/08/2018 08:40:00 AM EST completed [facility] Trazodone Hydrochloride 50 MG Oral Tablet Trazodone Hcl Traz odone Hcl 07/08/2018 08:40:00 AM EST completed [facility] Trazodone Hydrochloride 50 MG Oral Tablet Trazodone Hcl Traz odone Hcl 07/08/2018 08:40:00 AM EST completed [facility] Trazodone Hydrochloride 50 MG Oral Tablet Trazodone Hcl Traz odone Hcl 07/08/2018 08:40:00 AM EST completed [facility] Trazodone Hydrochloride 50 MG Oral Tablet Trazodone Hcl Traz odone Hcl 07/08/2018 08:40:00 AM EST completed [facility] Trazodone Hydrochloride 50 MG Oral Tablet Trazodone Hcl Traz odone Hcl 07/08/2018 08:40:00 AM EST completed [facility] Trazodone Hydrochloride 50 MG Oral Tablet Trazodone Hcl Traz odone Hcl 07/08/2018 08:40:00 AM EST completed [facility] Trazodone Hydrochloride 50 MG Oral Tablet Trazodone Hcl Traz odone Hcl 07/08/2018 08:40:00 AM EST completed [facility] gabapentin 400 MG Oral Capsule Gabapentin Gabapentin 2013 10:47:38 AM EDT 400 MG completed [facility] gabapentin 400 MG Oral Capsule Gabapentin Gabapentin 2013 10:47:38 AM EDT 400 MG completed [facility] gabapentin 400 MG Oral Capsule Gabapentin Gabapentin 2013 10:47:38 AM EDT 400 MG completed [facility] gabapentin 400 MG Oral Capsule Gabapentin Gabapentin 2013 10:47:38 AM EDT 400 MG completed [facility] gabapentin 400 MG Oral Capsule Gabapentin Gabapentin 2013 10:47:38 AM EDT 400 MG completed [facility] gabapentin 400 MG Oral Capsule Gabapentin Gabapentin 2013 10:47:38 AM EDT 400 MG completed [facility] gabapentin 400 MG Oral Capsule Gabapentin Gabapentin 2013 10:47:38 AM EDT 400 MG completed [facility] gabapentin 400 MG Oral Capsule Gabapentin Gabapentin 2013 10:47:38 AM EDT 400 MG completed [facility] gabapentin 400 MG Oral Capsule Gabapentin Gabapentin 2013 10:47:38 AM EDT 400 MG completed [facility] sildenafil 100 MG Oral Tablet [Viagra] Sildenafil (Via gra) 100 mg tablet Sildenafil (Viagra) 100 mg tablet 12/20/2012 10:04:00 AM EDT 100 MG completed [facility] sildenafil 100 MG Oral Tablet [Viagra] Sildenafil (Via gra) 100 mg tablet Sildenafil (Viagra) 100 mg tablet 12/20/2012 10:04:00 AM EDT 100 MG completed [facility] sildenafil 100 MG Oral Tablet [Viagra] Sildenafil (Via gra) 100 mg tablet Sildenafil (Viagra) 100 mg tablet 12/20/2012 10:04:00 AM EDT 100 MG completed [facility] sildenafil 100 MG Oral Tablet [Viagra] Sildenafil (Via gra) 100 mg tablet Sildenafil (Viagra) 100 mg tablet 12/20/2012 10:04:00 AM EDT 100 MG completed [facility] sildenafil 100 MG Oral Tablet [Viagra] Sildenafil (Via gra) 100 mg tablet Sildenafil (Viagra) 100 mg tablet 12/20/2012 10:04:00 AM EDT 100 MG completed [facility] sildenafil 100 MG Oral Tablet [Viagra] Sildenafil (Via gra) 100 mg tablet Sildenafil (Viagra) 100 mg tablet 12/20/2012 10:04:00 AM EDT 100 MG completed [facility] sildenafil 100 MG Oral Tablet [Viagra] Sildenafil (Via gra) 100 mg tablet Sildenafil (Viagra) 100 mg tablet 12/20/2012 10:04:00 AM EDT 100 MG completed [facility] Insurance Providers Payer name Policy type / Coverage type Policy ID Covered green party ID Covered green party's relationship to valentino Policy Valentino Plan Information MEDICARE [id number] SP [id number] MEDICARE [id number] SP [id number] [facility] [id number] SP [id number] [place] [id number] 18 [id number] [place] [id number] 18 [id number] SELF PAY [facility] [id number] SP [id number] SELF PAY SELF PAY [facility] MEDICARE COMPLETE - O/P [id number] 18 [id number] [facility] [id number] SP [id number] MEDICARE PART A-O/P [id number] 18 [id number] [place] [id number] 18 [id number] UNHC MEDICARE COMPLETE - O/P [id number] 18 [id number] [facility] Other 0 Self 0 Medicare P [id number] S [id number] a MEDICARE A [id number] Self [id number] [id number] MEDICARE PART A [id number] Patient [id number] MEDICARE PART A [id number] Patient [id number] UNICARE [id number] Patient [id number] MEDICARE A [id number] Self [id number] A MEDICARE-CLINIC [id number] undefined [id number] [facility] OPTIONS C [id number] S [id number] MEDICARE C [id number] S [id number] A MEDICARE PART A -I/P [id number] 18 [id number] Medicare P [id number] S [id number] [place] Primary Self Medicare P UNAVAILABLE S UNAVAILA BLE Medicare P [id number] S [id number] a MEDICARE -O/P [id number] 18 [id number] Problems, Conditions, and Diagnoses Code Display Name Description Problem Type Effective Dates Data Source(s) 08319338 Schizoaffective disorder, depressive typ e Schizoaffective disorder, depressive type Problem 04/18/2020 12:00:00 AM EST [facility] ([facility]) Ventral hernia without obstruction or ga ngrene Ventral hernia without obstruction or gangrene Problem 02/06/2020 12:00:00 AM EDT [facility] ([facility]) [id number] Essential hypertension Essential hypertension Problem 02/06/2020 12:00:00 AM EDT [facility] ([facility]) [id number] Allergic rhinitis due to pollen Allergic rhiniti s due to pollen Problem 11/09/2019 12:00:00 AM EDT [facility] ([facility]) Note: 3+ positive reaction to ragweed po llen on intradermal test. [id number] Allergic rhinitis due to house dust mite Allergic rhinitis due to house dust mite Problem 11/09/2019 12:00:00 AM EDT [facility] ([facility]) Note: 4+ reaction to dust mites and cock roaches on intradermal test. [id number] Essential hypertension Essential hypertension Problem 11/09/2019 12:00:00 AM EDT [facility] ([facility] ) F251 Schizoaffective disorder, depressive typ e Schizoaffective disorder, depressive type Diagnosis 06/06/2020 01:55:00 PM EST [facility] D48.5 Neoplasm of uncertain behavior of skin D 48.5 - Neoplasm of uncertain behavior of skin Diagnosis 03/04/2020 04:45:00 PM EDT [facility] NONPAR NONPAR Diagnosis 03/04/2020 02:51:00 PM ED T [facility] D48.5 Neoplasm of uncertain behavior of skin N EOPLASM OF UNCERTAIN BEHAVIOR OF SKIN Diagnosis 03/04/2020 02:51:00 PM EDT [facility] ital F17.200 Nicotine dependence, unspecified, uncomp licated F17.200 - Nicotine dependence, unspecified, uncomplicated Diagnosis 02/12/2020 12:00:00 A M EDT [facility] F12.10 Cannabis abuse, uncomplicated F12.10 - Cannabis abuse, uncomplicated Diagnosis 02/12/2020 12:00:00 AM EDT [facility] F19.10 Other psychoactive substance abuse, unco mplicated F19.10 - Other psychoactive substance abuse, uncomplicated Diagnosis 02/12/2020 12:00:00 AM EDT [facility] F43.10 Post-traumatic stress disorder, unspecif ied F43.10 - Post-traumatic stress disorder, unspecified Diagnosis 02/12/2020 12:00:00 AM EDT [facility] F41.0 Panic disorder [episodic paroxysmal anxi ety] F41.0 - Panic disorder [episodic paroxysmal anxiety] Diagnosis 02/12/2020 12:00:00 AM [facility] F41.1 Generalized anxiety disorder F41.1 - Generalized anxiety disorder Diagnosis 02/12/2020 12:00:00 AM EDT [facility] F31.2 Bipolar disorder, current episode manic severe with psychotic features F31.2 - Bipolar disorder, current episode manic severe with psychotic features Diagnosis 02/12/2020 12:00:00 AM EDT [facility] F22 Delusional disorders F22 - Delusional disorders Diagno sis 02/12/2020 12:00:00 AM EDT [facility] F341 Dysthymic disorder Dysthymic disorder Diagnosis 0 06:08:00 PM EDT [facility] I10 Essential (primary) hypertension Essential (primary) h ypertension Diagnosis 02/07/2020 06:08:00 PM EDT [facility] L538 Other specified erythematous conditions Other specified erythematous conditions Diagnosis 02/07/2020 06:08:00 PM EDT [facility] E860 Dehydration Dehydration Diagnosis 02/07/2020 06:08:00 PM EDT [facility] R110 Nausea Nausea Diagnosis 02/07/2020 06:08:00 PM ED T [facility] K420 Umbilical hernia with obstruction, witho ut gangrene Umbilical hernia with obstruction, without gangrene Diagnosis 02/06/2020 02:30:00 PM EDT [facility] K439 Ventral hernia without obstruction or ga ngrene Ventral hernia without obstruction or gangrene Diagnosis 02/06/2020 10:51:00 AM EDT [facility] Y[address] or not applicable Unspecified place or not applicable Diagnosis 05/29/2019 01:24:00 PM EST [facility] [id number] Exposure to other specified factors, ini tial encounter Exposure to other specified factors, initial encounter Diagnosis 05/29/2019 01:24:00 PM [facility] [id number] Strain of muscle, fascia and tendon of the posterior muscle group at thigh level, left thigh, initial encounter Strain of muscle, fascia and tendon of the posterior muscle group at thigh level, left thigh, initial encounter Diagnosis 05/29/2019 01:24:00 PM [facility] [id number] Sprain of unspecified site of left knee, initial encounter Sprain of unspecified site of left knee, initial encounter Diagnosis 05/29 01:24:00 PM [facility] [id number] Unspecified injury of left lower leg, in itial encounter Unspecified injury of left lower leg, initial encounter Diagnosis 05/29/2019 01:24:00 PM [facility] Surgeries/Procedures Procedure Description Date Indications Data Source(s) Psychiatric Diagnostic Evaluation 04/18/2020 12:00:00 AM [facility]) Cytopathology procedure, preparation of smear, genital sourc e (procedure) 02/07/2020 12:00:00 AM [facility] Cytopathology procedure, preparation of smear, genital sourc e (procedure) 02/07/2020 12:00:00 AM [facility] Cytopathology procedure, preparation of smear, genital sourc e (procedure) 02/07/2020 12:00:00 AM [facility] Cytopathology procedure, preparation of smear, genital sourc e (procedure) 02/07/2020 12:00:00 AM [facility] Blood culture for bacteria, including anaerobic screen (proc edure) 02/07/2020 12:00:00 AM [facility] Blood culture for bacteria, including anaerobic screen (proc edure) 02/07/2020 12:00:00 AM [facility] Computed tomography of abdomen and pelvis with contrast (pro cedure) 02/05/2020 09:21:00 PM [facility] Computed tomography of abdomen and pelvis with contrast (pro cedure) 02/05/2020 09:21:00 PM [facility] Computed tomography of abdomen and pelvis with contrast (pro cedure) 02/05/2020 09:21:00 PM EDT [facility] Computed tomography of abdomen and pelvis with contrast (pro cedure) 02/05/2020 09:21:00 PM EDT [facility] Computed tomography of abdomen and pelvis with contrast (pro cedure) 02/05/2020 09:21:00 PM EDT [facility] Computed tomography of abdomen and pelvis with contrast (pro cedure) 02/05/2020 09:21:00 PM EDT [facility] Computed tomography of abdomen and pelvis with contrast (pro cedure) 02/05/2020 09:21:00 PM EDT [facility] PERCUTANEOUS TESTS W/ALLERGENIC EXTRACTS 11/09/2019 12 :00:00 AM EDT [facility] ([facility]) INTRACUTANEOUS TESTS W/ALLERGENIC EXTRACTS 11/09/2019 12:00:00 AM EDT [facility] ([facility]) Results ID Date Data Source [id number] 06/22/2020 12:00:00 AM EST [facility] Name Value Range Interpretation Code Description Data [place] rce(s) Supporting Document(s) SARS-CoV-2 (COVID-19) RNA [Presence] in Respiratory specimen by RICARDO with probe detection Not Detected [facility] This lab was ordered by [facility] and reported by [facility]. ID Date Data Source [id number] 06/21/2020 06:08:00 PM [facility] Normal result is "BinaxNow Covid-19 Ag n egative"BinaxNow Covid-19 Ag is a rapid lateral flowimmunochromatographic immunoassayThis test detects both viable(live) and non-viable, SARS-COVand SARS-COV-2.Positive test results do not differentiate between SARS-COVand [id number] results , from patients with symptom onset beyondseven days, should be treated as presumptive andconfirmation with a molecular assay, if necessary, forpatient managementIf the differentiation of specific SARS viruses and strainsis needed, additional testing, in consultation with stateand local public health departments, is required.SARS-CoV-2 Ag Resp Ql IA.rapid Name Value Range Interpretation Code Description Data [place] rce(s) Supporting Document(s) ID Date Data Source [id number] 06/21/2020 05:19:00 PM EST [facility] Name Value Range Interpretation Code Description Data [place] rce(s) Supporting Document(s) SARS-CoV-2 (COVID-19) Ag [Presence] in R espiratory specimen by Rapid immunoassay BinaxNow Covid -19 Ag Negative [facility] This lab was ordered by [facility] and reported by [facility]. ID Date Data Source [id number] 06/21/2020 09:31:00 AM [facility] Patient Name: PIPER LICEA : 1970 Sex: M Pt Unit #: [id number] Location:[facility] Provider: Visit Date/Time: 06/21/20 Primary Insurance: [employer] Secondary Insurance: Self Pay Intake Intake Visit Reasons: Telemed Visit Allergies dust mites Allergy (Severe, Uncoded 02/05/20 21:23) builds up drainage in eyes , post nasal drip rag weed Allergy (Severe, Uncoded 02/05/20 21:23) builds up eye drainage, post nasal drip Medications - Last Reconciled 06/21/20 by Kelli Mcmanus, ANTHONY clonazepam 0.5 mg [...] Screening Screening Have you traveled outside of [facility] or [facility] in the last 14 days.: No [...] of nose and nasal sinuses SNOMED Code(s): 93683069 Category: Medical (2) Headache: Status: Acute Code(s): R51.9 - Headache, unspecified SNOMED Code(s): 54614500 Category: Medical Additional Comments Additional Comments: I [...] Headache R51.9 <Electronically signed by Kelli Mcmanus TOOL LIAISON> 06/21/20 0938 Name Value Range Interpretation Code Description Data Geenva rce(s) Supporting Document(s) ID Date Data Source [id number] 06/04/2020 01:18:00 PM [facility] Patient Name: PIPER LICEA : 1970 Sex: M Pt Unit #: [id number] Location:[facility] Provider: Visit Date/Time: 06/04/20 Primary Insurance: [employer] Secondary Insurance: Self Pay Intake Vital Signs [...] and colleagues, with an educational elie from [employer]. HIV Testing Offer - ages 13-64 HIV testing Offer: No Coronavirus Screening Screening Have you traveled outside of [facility] or [facility] in the last 14 days.: No Has patient experienced coronavirus symptoms: No [facility] Medical History (Updated 04/04/20 @ 10:32 by [...] depressive disorder, single episode, unspecified SNOMED Code(s): 17130750 Category: Medical Plan - Kelli Mcmanus TOOL LIAISON: Continue 150mg sertaline. See back in 2-3 months for annual PE. Continue to see [facility] weekly. Additional Comments Additional Comments: Paper completed for DMV. Orders Other Medications: Changed: From: olanzapine 10 mg PO QPM 30 days 30 tabs 3RF To: olanzapine 20 mg (2 x 10 mg) PO QPM 60 tabs 3RF Coding Level of Care Code 52614 Est Pt Limited Comp Exam Problem Focused Diagnoses Depression F32.9 <Electronically signed by Kelli Mcmanus TOOL LIAISON> 06/04/20 1349 Name Value Range Interpretation Code Description Data [place] rce(s) Supporting Document(s) ID Date Data Source [id number] 05/07/2020 10:59:00 AM EST [facility] Patient Name: PIPER LICEA : 1970 Sex: M Pt Unit #: [id number] Location:[facility] Provider: Visit Date/Time: 05/07/20 Primary Insurance: [employer] Secondary Insurance: Self Pay Intake Vital Signs [...] gives 2 needles-can he get more), klonopin. Tire Bladder Maker Required: No Allergies dust mites Allergy (Severe, [...] and colleagues, with an educational elie from [employer]. HIV Testing Offer - ages 13-64 HIV testing Offer: No Coronavirus Screening Screening Have you traveled outside of [facility] or [facility] in the last 14 days.: No Has patient experienced coronavirus symptoms: No [facility] Medical History (Updated 04/04/20 @ 10:32 by [...] attempt. Has been able to get into [facility] for therapy and this has been going [...] depressive disorder, single episode, unspecified SNOMED Code(s): 57171086 Category: Medical Plan - Kelli Mcmanus TOOL LIAISON: Has an appt tomorrow with mental health. [...] cypionate Inject 1ml into muscle Q2 week OSTEOLOGIST:[id number] 200 mg IM Q2W 14 days 1 vial 0RF MDD 300 R79.89 Follow Up: 1 Month (Mental health) <Electronically signed by Kelli Mcmanus TOOL LIAISON> 05/07/20 1308 Name Value Range Interpretation Code Description Data [place] rce(s) Supporting Document(s) ID Date Data Source [id number] 05/06/2020 11:29:00 AM EST [facility] ([facility]) Name Value Range Interpretation Code Description Data [place] rce(s) Supporting Document(s) PDF Laboratory test result [facility] ([facility]) {DIAGNOSIS: F25.1~{MEDICATIONS/DECLARED : CLONAZEPAM DEPAKOTE MELOXICAM PRAZOSIN~{PRESCRIPTION I Laboratory test finding (navigational concept) Laboratory test result [facility] ([facility]) {DIAGNOSIS: F25.1~{MEDICATIONS/DECLARED : CLONAZEPAM DEPAKOTE MELOXICAM PRAZOSIN~{PRESCRIPTION I ID Date Data Source [id number] 05/11/2020 06:59:00 AM [facility] Name Value Range Interpretation Code Description Data [place] rce(s) Supporting Document(s) Drugs identified in Urine FINAL [facility] TOXASSURE SELECT 13 (MW) Test Result [...] clinical consultation, please call . Report . [facility] ID Date Data Source [id number] 04/24/2020 11:41:00 AM [facility] Patient Name: PIPER LICEA : 1970 Sex: M Pt Unit #: [id number] Location:[facility] Provider: Visit Date/Time: 04/24/20 Primary Insurance: [employer] Secondary Insurance: Self [...] Screening Screening Have you traveled outside of [facility] or [facility] in the last 14 days.: No Has patient experienced coronavirus symptoms: No [facility] Medical History (Updated 04/04/20 @ 10:32 by [...] F41.9 - Anxiety disorder, unspecified SNOMED Code(s): 40955746 Category: Medical Plan - Kelli Mcmanus, TOOL LIAISON: Anxiety at baseline. Will keep follow up for next month. Paperwork completed. No concerns today. <Electronically signed by Kelli Mcmanus TOOL LIAISON> 04/24/20 1301 Name Value Range Interpretation Code Description Data [place] rce(s) Supporting Document(s) ID Date Data Source [id number] 04/09/2020 07:37:00 AM [facility] Name Value Range Interpretation Code Description Data [place] rce(s) Supporting Document(s) Free Testosterone (Direct) 218.6 pg/mL 46.0-224.0 [facility] The concentration of free testosterone i s derivedfrom a mathematical model using total testosteroneby LCMSMS, sex hormone binding globulin and albumin.This test was developed and its analytical performancecharacteristics have been determined by [employer] [place], [place]. It hasnot been cleared or approved by the U.S. Food and DrugAdministration. This assay has been validated pursuantto the CLIA regulations and is used for clinicalpurposes.THIS TEST WAS PERFORMED AT:[employer]/[facility] [place] [address]OJCAFPXBLAISE FOY MD,PHD ID Date Data Source [id number] 04/09/2020 07:37:00 AM [facility] Name Value Range Interpretation Code Description Data [place] rce(s) Supporting Document(s) Testosterone 649 ng/dL [id number] [facility] THIS TEST WAS PERFORMED AT:[employer] [facility] [id number] MERATI,MD ID Date Data Source [id number] 04/04/2020 10:05:00 AM [facility] Patient Name: PIPER LICEA : 1970 Sex: M Pt Unit #: [id number] Location:[facility] Provider: Visit Date/Time: 04/04/20 Primary Insurance: [...] still suffering with severe depression and anxiety. Tire Bladder Maker Required: No Accompanied by: Self / Same [...] Screening Screening Have you traveled outside of [facility] or [facility] in the last 14 days.: No [...] depressive disorder, single episode, unspecified SNOMED Code(s): 11842346 Category: Medical Orders: Referrals: Mental Health Referral (3) Anxiety: Status: Acute Code(s): F41.9 - Anxiety disorder, unspecified SNOMED Code(s): 09618181 Category: Medical Orders: Referrals: Mental Health Referral (4) PTSD (post-traumatic stress disorder): Status: Acute Code(s): F43.10 - Post-traumatic stress disorder, unspecified SNOMED Code(s): 28250946 Category: Medical (5) Paranoia: Status: Acute Code(s): F22 - Delusional disorders SNOMED Code(s): 265100800 Category: Medical Additional Comments Additional Comments: Increased sertraline to 100mg. Will consider changing his xanax to clonazepam. He will be reaching out to Tee at [facility] at [place], to see if he can get back [...] cypionate Inject 1.5ml into muscle Q2 week OSTEOLOGIST:589251208 300 mg (1.5 mL) IM Q2W 14 days 1.5 vials 0RF MDD 300 R79.89 To: testosterone cypionate Inject 1ml into muscle Q2 week OSTEOLOGIST:[id number] 200 mg IM Q2W 14 days 1 vial 0RF MDD 300 R79.89 Discontinued: sertraline Discontinued Reason: Clinically Indicated 50 mg PO Q24H 30 days 30 tabs 3RF Other Orders: Orders: Free Testosterone (Direct) 1 Month R79.89 Testosterone, Total, Male 1 Month R79.89 <Electronically signed by Kelli Mcmanus TOOL LIAISON> 04/04/20 1034 Name Value Range Interpretation Code Description Data Geneva rce(s) Supporting Document(s) ID Date Data Source [id number] 03/13/2020 10:01:00 AM EDT [facility] Patient Name: Piper Licea : 1970 Sex: M Pt Unit #: [id number] Location:[facility] Provider: Visit Date/Time: 03/13/20 Primary Insurance: [facility] Secondary Insurance: Self Pay Intake Vital Signs [...] in the am and 1000mg at HS. T[employer] Bladder Maker Required: No Accompanied by: Self / Same [...] Screening Screening Have you traveled outside of [facility] or [facility] in the last 14 days.: No Has patient experienced coronavirus symptoms: No PFSH Medical History (Updated 03/13/20 @ 10:46 by Kelli Mcmanus NP) Depression Environmental allergies Hypertension Low testosterone in male Sleep apnea Suspicious nevus Afluria Qd (3yr up)(PF) Performing Provider: Kelli [...] up on medications. He was recently in [place], admitted for vivid nightmares, and PTSD. He [...] good Judgment: judgment good Immunizations Afluria Qd 2019-(3yr up)(PF) Performing Provider: Kelli Mcmanus NP Administered by: Jacquelin Alamo on 03/13/20 10:50 Dose Route Admin Location Lot Number Expiration Date [facility] Manufactu rer 60 mcg IM Left deltoid [id number] 11/27/20 79758-610-38 [employer] VIS Given Date VIS Provided VIS Publication Date 03/13/20 Single Vaccine 20 Eligibility Eligibility Date Funding Source Not [facility] Eligible 03/13/20 Private Assessment Plan Assessment Plan (1) Encounter for medication adjustment: Code(s): Z51.89 - Encounter for other specified aftercare (2) Depression: Status: Acute Code(s): F32.9 - Major depressive disorder, single episode, unspecified Category: Medical Plan - Kelli Mcmanus TOOL LIAISON: He is doing well on new medications. He was seeing in [place], however, he is unable to be seen [...] will refer to [facility] for psycho-therapy. Orders: Referrals: Mental Health [...] Today Z23 <Electronically signed by Kelli Mcmanus TOOL LIAISON> 03/13/20 1138 Name Value Range Interpretation Code Description Data Geneva rce(s) Supporting Document(s) ID Date Data Source [id number] 03/06/2020 05:32:01 PM EDT J[facility]re[facility] ital Name Value Range Interpretation Code Description Data Geneva rce(s) Supporting Document(s) PATHOLOGY RESULT () N [facility]re[facility] ital Name: PIPER LICEA : [address]: Eb Becker PAAcct: [id number] Unit: [id number] AGE: 49 Location: [facility] NPRe03/04/20 SEX: M Status: REG REF . SPEC: [id number] MARISABEL: 03/04/[address] [facility] [address]: Eb Becker PAREQ: [id number] RECD: 03/04/20STATUS: KEEGAN_ORDERED: LEVEL 4COMMENTS: [id number] . FINAL DIAGNOSISSkin, sternum, biopsy:-- Excoriation.-- No [...] END OF REPORT .. DEPARTMENT OF PATHOLOGY, [address] [place] [address] Lucien Puckett M.D. Director [facility] # [id number]. ID Date Data Source [id number] 03/06/2020 10:30:01 AM KENNETH cartwright Name Value Range Interpretation Code Description Data Geneva rce(s) Supporting Document(s) ID Date Data Source [id number] 03/05/2020 10:21:00 AM EDT [facility]#[id number]_ Name: PIPER LICEA : [address]: Eb MARTEL Acct: [id number] Unit: [id number] AGE: 49 Location: [facility] Re03/04/20 SEX: M Status: REG REF SPEC: [id number] MARISABEL: 03/04/[address] [facility] [address]: Eb MARTEL REQ: [id number] RECD: 03/04/20 STATUS: SOUT _ORDERED: LEVEL 4 COMMENTS: [id number] FINAL DIAGNOSIS Skin, sternum, biopsy:-- Excoriation.-- No [...] 1021 END OF REPORT DEPARTMENT OF PATHOLOGY, [address] [place] [address] Lucien Puckett M.D. Director [facility] # [id number] Name Value Range Interpretation Code Description Data Geneva rce(s) Supporting Document(s) ID Date Data Source [id number] 02/12/2020 09:57:00 AM EDT [facility] Name Value Range Interpretation Code Description Data Geneva rce(s) Supporting Document(s) SARS-CoV-2 (COVID-19) N gene [Presence] in Nasopharynx by RICARDO with probe detection [facility] and reported by [facility]. ID Date Data Source [id number] 02/12/2020 07:42:00 PM EDT [facility] COVID Reason ED patient Priority Name Value Range Interpretation Code Description Data Geneva rce(s) Supporting Document(s) COVID 19 (RHEONIX) NOT-DETECTED NOTDETECTED [facility] The [employer] COVID-19 MDx Assay is an en dpoint RT-PCR assay intended for the qualitative detection of nucleic acid from SARS-CoV-2 in nasopharyngeal swabs. COVID testing using the [employer] analyzer was developed for the purpose of [...] public health authorities. ID Date Data Source [id number] 02/12/2020 04:46:00 AM EDT [facility] [address] [place] [address] RESPIRATORY CARE REPORT ==== ---------NAME------- NUMBER SEX AGE ADMIT DISC. XRAY# F/C TYPENATALIYA PIPER [place] [id number] M 49 02/07/20 02/08/20 [id number] [place] O/P DATE OF : 1970 M/R# [id number] #: [id number] LOCATION: EMERGENCY DEPT EKG 51384 COMP LETE:02/08/20 07:15 [place] [id number] PHYSICIAN: SYLVIA SCHAEFER Name Value Range Interpretation Code Description Data Geneva rce(s) Supporting Document(s) ID Date Data Source [id number] 02/12/2020 04:30:43 AM EDT [facility] Name Value Range Interpretation Code Description Data Geneva rce(s) Supporting Document(s) EKG/ECG IN ED [facility] [file] [id number]HxHqFsSU4W8z2oV30vNRoKB1DFAdz2//López/nGf075Z5tu/s [file] gxCiiigAooooAKKKKACiiigAooooAKKKKACiiigAooooAKKKKACiiigAooooAKKKKACiiigAooooAKKK QBSnsqnPjwtjV2bcZ4+2/4F/TlFjuqEmeomm3nUwpdu/VN6DRYZaHItNPiTgtspPCTPubaBp3e+tJRRQ Ntl4jJyucTiP+8frRRTGJRRRSEFLRRQMG+8frSUUUA P4kvvheXKjqW0nubDHo9DNKyGSyUMEns0r+rFWUSHj6iCxvjOMZ66k6fQZQjALLCOkhjMKBMqgY94hXH YG7dTxxtWAVNnrK82CNm9OuRSDCZoqPZYR51t3nAbtaEbfjemrJohC+0nkRACQCY3tpqEKdvuwQK+8fr VODFSB9wCDCWZj/er6r0T/kAad/16xf+giiiqidmE3 ZfrX8N/oPGKw0X52D+YooqnsdFf+BO9kqzjyjxzpsopREWGTHMwfnnAkhblJWHBQMIecxmMxzbaYSHQR ACiiigAooooAKKKKACiiigAooooAKKKKACiiigAooooA//9V2TJJ1wn1HfZWLrYOkrayWsEizELlX9NQ Ihq5XiKPl0QN5HjURsD00efjA1tG2CLBxtCdcwb9He NISgZoeioKNdE8OgUBLpSNKmo4GrY6gnrme4nZCmNYY+Pw3Oa3PsWWCwERq8dP2HTPaKWLJCu7K/cGM7 xJksG2qHjEvToSs9SPpwbPjuKfg/j0DlbyUJpxtczxxYwALCLDQSoCLLUUFeJadfzwfBJSFJnWNwrVKl Jp6eIDepkVc2ToEWsSdwRHC7uib8JdFTLE+FO1YT19 8QdFQspXkvuW9gY0ZcPibPay8ood+FlGhAnargvU19SwlAtNM7sUjggTHRwt2Dz3jrEXds2UMNw5+1WK tByOyurqc7Dye/owrT3EtuH5I8IvzXJfWLTzFuQQU2moMvyA9QMQ8th6UjPXkuLIQwSZ0ddd1EVIxmGF JvZHVjZXIo/t3WJTVtJKJBthQrRZCJsfLiYMBShnOe AI5DTpGjNLbDKhHkAKVUOxQqACDLRGTyZQBVQPHhCGwqC8ZhDEY8c6Et/g6ICWPsSSHXadBxQMCXiwOc AAPFeqOpIM5JRdFcWNuRZxEvNBZDYpGeRVJAXDXsIXOJLCIzVKueJ6FwXTT9aP8zHMB9OJvCMwSmLwPs OLB6XDhrSmHdINBuCE7rGKJ2FVhLHqHcVwOiBQG3RQ gzMzEyKSA+Nz6PQG2vz5UrCOkbTRKsDC6dly3KZyWaRLOdHH2EZA1mb3JkTIbzXZZdFC5uir1CXlIkML JfYM4LQT2cx8SiBOwiWWMiWQ4lay2LTFhaXQynII0RIkVfX6SkeeOlCwKkN9dyVLL2DXFgSL9Uw041CV HmNUXWL1eqTm9mKRooZXVHN7xUGoa2ROJwNUFyZWT1 D7AqSAWEYVVBGBD8GyyWLFF3HKIcMA54QeB0TQeFJZD6MIQWTKQ3JQHXPmXPZFG4QSSINAWbQSJ+XSAv TacfaDPoD0PqNSDrOGRfn3VbV8ugnlc2yZT2HJ1+MBtjqUUiLB1UMvriB5MJzt//GYGkIAMDiKqFUFvB GNJlBHX6Q0lrAqWIFG8hksDhJRAZDgXHLwRIUJGQB1 SgfoWGQVkmvZ7BeUftWbmWMTZHzktjaDu+SgZpA9QMEF/jK1QBEpZqUKM1twElrA8NNK2vw9LnDAi5fp WrREydUTJxHItzSMYlNKQaAAGhXGV4IHQ1GTVFHzDkSSGcFKBpVUduOGQjGEClud9PMQHxQFBlUODjIW NiHBQiSNXtYNwsZTWyCQIkKNnyLNGoLLGsDB7DKjDv OXMiYJU7TQFwEWCgZAKvnk1ZQQZvFNKiGJuxVEPdWQFyWRTbQRwxOIGnAKSqFIUaVAKxLPPtKH4WAjBg NHRdOKHwILLzHVMgGKKmav4IQFTlLHXrWATnYhBwEQSiNDWeJBxaZBRbXXAxMZG7FGBrXJFnNG0KVbIy RVQxLVPiOAOsXdX0MiOrVx3EKRFfFSUeCEVrIlJ9LV FqULXqVTzzPAIwXGZjKCBxTNX6HZJ0NUKNYhPeVHYwVAWaSCYtOhW9MlRfJa6KXIBbTTVnLXNzRHW3DL CoUXNmRWfyBSZtSDXmROR8LIA8VWB6KAVPDcVgCYYxZBVnPIoeYvZ4JzGpNy1ZINRuRIFbKKPjBPE2KA MgFJZpADhwUYCbVqA2GtNoLPDtHJPzOA6PEeXkGCJq Clt0LKcfQDSkXWMvfy7WUWRhWCGuCsH2ErIbQECjUXJjKBhwNUZlUyT0IBihGTEkSKLpUH9OUsMnLHpn GYVNXbp2T7EleaFjDrMiTy9mbVZvHKAtHr4TdqFcDZI6PMVnUl0YTVh1ZxD6FPjCSNP8NIOOLQL0NEPZ KzOXCIY4LKEDXVTyMPK+FCt7OcO6MMIxBOdgHfN6BI QWTzIHBVoCOWLERVunRfJZEt3hSh5TUwD7GED4cXWsKr3QRuP9KhJuYJzdJNRLMh5QwITdCz8DWKNsCZ i7ggImpKEsOAu3NV4LeUlaIMEiD8Ybj8PfVZUyZZIxUK3jmkUiILAaFBPsDUOcJUz2YlH2PQInVPwuUg C6KVANFlKNKHqDPQVRXMixGpDKHjp8VOPsREZjMKC5 T6WlCVKPHZGSPSV1VgsZLUI0EHTaRS3cUN1PrvQ2FRUsDqf2JK6DJzEnY1ExQBDzCwQ0Na3+DQpzdGFy fFxrSFEEOzJjXBZ9MF5KHDPGW5Z= ID Date Data Source [id number] 02/12/2020 04:30:00 [place] [address] Patient Name: Piper Licea Exam Date: 02/11/20 : 1970 CC: EKG/ECG in ED Ordering Doctor: Velvet Rosales DO Attending Doctor: Velvet Rosales DO CC: EKG/ECG in ED APPROVED REPORT ECG MEASUREMENT Heart Rate 110 AXES WY 147 P 31 QRSd 141 QRS -42 QT 351 T -3 QTc 416 INTERPRETATION SINUS TACHYCARDIA RIGHT BUNDLE BRANCH BLOCK. NO PRIOR AVAILABLE FOR COMPARISON. <Conclusion> SINUS TACHYCARDIA RIGHT BUNDLE BRANCH BLOCK. NO PRIOR AVAILABLE FOR COMPARISON. End of diagnostic report for accession: [id number] Interpreted: Velvet Rosales DO 02/12/20429 Transcribed: Signed: Velvet Rosales DO 02/12/20430 Interpreted by: Dwayne Rosalesscribed by: Velvet Rosales Name Value Range Interpretation Code Description Data Geneva rce(s) Supporting Document(s) ID Date Data Source [id number] 02/12/2020 02:20:00 [place] [address] HEALTH INFORMATION MANAGEMENT Consultation : [id number] Signed Patient: Piper Licea Acct:[id number] Unit: [id number] : 1970 Loc: ED Room/Bed: Age/Sex: 49 [...] DAILY 02/12/20 testosterone cypionate 300 mg IM [id number] 02/12/20 Current Visit Medications: Discontinued Medications Generic Name Dose Route Start Last Admin Trade Name Edilia PRN Reason Stop Dose Admin Lorazepam 2 mg 02/11/20 23:53 02/12/20 00:07 Ativan Tablet PO 02/11/20 23:54 2 mg ONCE ONE Administration Olanzapine 10 mg 02/11/20 23:53 02/12/20 00:07 Zyprexa Tablet PO 02/11/20 23:54 10 mg ONCE ONE Administration Sodium Chloride 1 each 02/12/20 00:00 Saline Lock Flush Protocol IV FLUSH QSHIFT [facility] History of Smoking/Tobacco Use: Unknown if Ever [...] MPV Gran % (Auto) Lymph % (Auto) Holt % (Auto) Eos % (Auto) Baso % (Auto) Nucleat RBC Rel Count Gran # Lymph # (Auto) Holt # (Auto) Eos # (Auto) Baso # [...] Urine Appearance CLEAR Urine pH 6.0 Specific [place] (Man) 1.008 Urine Protein 30 H Urine [...] 76.7 H Lymph % (Auto) 16.2 L Holt % (Auto) 6.6 Eos % (Auto) 0.0 Baso % (Auto) 0.2 Nucleat RBC Rel Count Not Reportable Gran # 11.18 H Lymph # (Auto) 2.4 Holt # (Auto) 0.96 Eos # (Auto) 0.00 Baso # (Auto) 0.03 Immature Gran # (Auto) 0.1 Absolute Nucleated RBC Not Reportable Immature Gran % 0.3 Sodium Potassium Chloride Carbon Dioxide Anion Gap BUN Creatinine Estimated GFR (MDRD) BUN/Creatinine Ratio Glucose Calcium Total Bilirubin AST ALT Alkaline Phosphatase Total Protein Albumin Globulin Albumin/Globulin Ratio TSH Urine Color Urine Appearance Urine pH Specific [place] (Man) Urine Protein Urine Glucose (UA) Urine [...] with paranoid ideation, [facility] and psycho [...] was more than 50% counseling:: Yes Inpatient 55243 Initial INpt- Low (less than/equal 30 minutes): Yes Signed By:Elton Jennings MD <<Signature on File>> Signed Date/Time: 02/12/20 0534 Co-Signer: Co-Signed Date/Time: Initializing User: Elton Jennings MD 0 9 9 Name Value Range Interpretation Code Description Data Geneva rce(s) Supporting Document(s) ID Date Data Source [id number] 02/12/2020 12:11:00 AM EDT [address] [address] HEALTH INFORMATION MANAGEMENT ED/ Physician Report : [id number] Signed Patient: Piper Licea Acct:[id number] Unit: [id number] : 1970 Arrival Date: 02/11/20 Age/Sex: 49 [...] presents for psychiatric evaluation. Patient presents with [facility] police. Patient reportedly has been extremely [...] DAILY 02/12/20 testosterone cypionate 300 mg IM [id number] 02/12/20 Allergies No Known Allergies Allergy (Unverified [...] able to access the patient's records from [facility]. Patient was admitted there i 2017 for similar symptoms. Patient is from the [facility] and has been admitted multiple times at [facility]. Unfortunately do not have access to [...] cypionate 200 mg/mL oil 300 mg IM [id number] RF: 0 lisinopril 40 mg tablet 40 mg PO DAILY RF: 0 Referrals: PCP,No [Primary Care Provider] - Date/Time <<Signature on File>> Initializing User: Velvet Rosales DO 02/12/20 0011 Signed by: Velvet Rosales DO 02/12/20 0655 Name Value Range Interpretation Code Description Data Geneva rce(s) Supporting Document(s) ID Date Data Source [id number] 02/12/2020 12:17:00 AM EDT [facility] Name Value Range Interpretation Code Description Data Geneva rce(s) Supporting Document(s) COLOR,UR YELLOW YELLOW [facility] APPEARANCE,UR CLEAR CLEAR [facility] PH,UR 6.0 5.0-8.0 [facility] SPECIFIC GRAVITY,UR 1.008 1.002-1.035 [facility] PROTEIN,UR 30 MG/DL NEGATIVE A [facility] GLUCOSE, UR NEGATIVE MG/DL NEGATIVE [facility] KETONES,UR 80 MG/DL NEGATIVE [facility] OCCULT BLOOD,UR NEGATIVE NEGATIVE [facility] NITRATE,UR NEGATIVE NEGATIVE [facility] LEUKOCYTE ESTERASE ,UR NEGATIVE NEGATIVE [facility] BILIRUBIN,UR NEGATIVE NEGATIVE [facility] UROBILINOGEN,UR 0.2-1.0 EU MG/DL NEG-0-1.0 [facility] ID Date Data Source [id number] 02/12/2020 12:24:00 AM EDT [facility] Name Value Range Interpretation Code Description Data Geneva rce(s) Supporting Document(s) OPIATE SCREEN NEG NEGATIVE [facility] Minimum Detectable Limit is 300 ng/mL. BARBITURATE SCREEN NEG NEGATIVE [facility] Minimum Detectable Limit is 300 ng/mL. PHENCYCLIDINE SCREEN NEG NEGATIVE [facility] Minimum Detectable Limit is 25 ng/mL. AMPHETAMINE SCREEN NEG NEGATIVE [facility] Minimum Detectable Limit is 1000 mg/mL. BENZODIAZEPINE SCREEN POS NEGATIVE [facility] Mininum Detectable Limit is 300 ng/mL. COCAINE SCREEN NEG NEGATIVE [facility] Minimum Detectable Limit is 300 ng/mL. CANNABINOID SCREEN NEG NEGATIVE [facility] Minimum Detectable limit is 50 ng/dL. HEROIN SCREEN NEG NEGATIVE [facility] Minimum Detectable limit is 10 ng/dL. A ll POSITIVE or BORDER results are unconfirmed. Please contact the laboratory if a reference testing confirmation is needed. ID Date Data Source [id number] 02/12/2020 12:21:00 AM EDT [facility] Has Patient Fasted For The Past 12 [...] WHITE BLOOD COUNT 14.58 10^3/uL 4.00-10.50 H [facility] RED BLOOD COUNT 6.19 10^6/uL 4.30-5.80 [facility] HEMOGLOBIN 18.7 G/DL 13.0-17.5 H [facility] Critical Results for H&H Ratio. Ch ceasar for possible cryoprecipitates. HEMATOCRIT 52.7 % 41.0-53.0 N [facility] MCV 85.1 FL 80.0-100.0 N [facility] MCH 30.2 PG 27.0-34.0 N [facility] MCHC 35.5 G/DL 32-36 N [facility] RDW 13.1 % 11.5-14.5 N [facility] PLATELET COUNT 290 10^3/uL 130-400 N [facility] MPV 10.0 FL 8.7-13.2 N [facility] GRAN % (AUTO) 76.7 % 42.0-75.0 [facility] LYMPH % (AUTO) 16.2 % 20.0-51.0 L [facility] MONO % (AUTO) 6.6 % 2.0-15.0 [facility] EOS % (AUTO) 0.0 % 0.0-11.0 [facility] BASO % (AUTO) 0.2 % 0.0-2.0 [facility] IG % (AUTO) 0.3 % 1.00-5.00 [facility] IG # (AUTO) 0.1 10^3/uL <0.5 [facility] GRAN # (AUTO) 11.18 10^3/uL 1.50-6.50 [facility] LYMPH # (AUTO) 2.4 k/uL 1.0-5.0 [facility] [place] [facility] MONO # (AUTO) 0.96 k/uL 0.20-1.50 [facility] EOS # (AUTO) 0.00 10^3/uL 0.00-1.10 [facility] BASO # (AUTO) 0.03 10^3/uL 0.00-0.20 [facility] ID Date Data Source [id number] 02/12/2020 12:33:00 AM EDT [facility] Has Patient Fasted For The Past [...] Supporting Document(s) SODIUM 136 MEQ/L 135-145 N [facility] POTASSIUM 4.4 MEQ/L 3.5-5.3 N [facility] CHLORIDE 101 MEQ/L 94-110 N [facility] CARBON DIOXIDE 20 MEQ/L 22-33 L [facility] ANION GAP 19 5-16 H [facility] BLOOD UREA NITRO 7 MG/DL 7-25 N [facility] CREATININE 0.8 MG/DL 0.6-1.4 N [facility] GFR > 90.0 ML/MIN [facility] Stage G1 - Normal or high kidney functi on The GFR is an estimate of the Glomerular Filtration Rate. It is an aid to assess a patient's renal function. It is not a conclusive diagnosis of kidney disease. GFR normal is >=90 The MDRD GFR calculation is considered valid between the ages of 18 and 75 years only. BUN/CREAT RATIO 8 8-36 N [facility] GLUCOSE 119 MG/DL 70-100 H [facility] CA 10.4 MG/DL 8.7-10.5 N [facility] BILIRUBIN,TOTAL 1.1 MG/DL 0.1-1.3 N [facility] AST 39 U/L 5-40 N [facility] ALT 65 U/L 5-48 H [facility] ALKALINE PHOSPHATASE 72 U/L 40-140 [facility] TOTAL PROTEIN 7.2 G/DL 5.9-8.3 N [facility] ALBUMIN 5.4 G/DL 3.0-5.1 H [facility] GLOBULIN 1.8 G/DL 1.5-3.5 [facility] ALB/GLOB RATIO 3.0 G/DL 1.0-3.0 [facility] ID Date Data Source [id number] 02/12/2020 12:33:00 AM EDT [facility] Has Patient Fasted For The Past [...] Supporting Document(s) TSH 2.004 uIU/ML 0.470-4.200 N [facility] Patients should not be tested for 73 ho urs post fluorescein dye angiography. A false depression of result may occur. ID Date Data Source [id number] 02/12/2020 12:33:00 AM EDT [facility] Has Patient Fasted For The Past [...] Document(s) SALICYLATE < 3.0 MG/DL 2.8-20.0 N [facility] ID Date Data Source [id number] 02/12/2020 12:33:00 AM EDT [facility] Has Patient Fasted For The Past [...] Document(s) ACETAMINOPHEN < 2.0 UG/ML 10-30 L [facility] High levels of N-acetylcysteine (used t o treat Acetaminophen overdose) may cause interference and cause a negative bias in the Acetaminophen result. ID Date Data Source [id number] 02/12/2020 12:33:00 AM EDT [facility] Has Patient Fasted For The Past [...] Document(s) BLOOD ALCOHOL < 0.03 % <0.03 [facility] ID Date Data Source [id number] 02/08/2020 12:11:00 PM EDT [facility] [address] [place] [address] PHONE: [phone] FAX: [phone] Name .................. : NATALIYA [place] Acct Number.................. : [id number] ROOM. ................. : TR-06 MR Number ................... : [id number] Stay type ............. : E/R Discharge Date......... ... : Admit Date ......... : 0 02/07/20 Admit Phys .................... : COONEYNORM Date of ....... : 1970 Family Phys ................... : YONATHAN COR Phone .................. : [phone] Age ................................ : 49 Film# .................. .:[id number] Sex ................................. : M Unsigned transcriptions are preliminary reports and do not represent a medical or legal document CT ABD & PELVIS W/ IV ONLY [id number] COMPLETE:02/07/20 18:42 [id number] Reason(s): Pending CMP: Abd pain s/p surgery; [...] versus postoperative change. Page 1 of [address] [place] [address] PHONE: [phone] FAX: [phone] Name .................. : NATALIYA [place] Acct Number.................. : [id number] ROOM. ................. : TR-06 MR Number ................... : [id number] Stay type ............. : E/R Discharge Date......... ... : Admit Date ......... : 02/07/20 [facility] .................... [facility] Date of ....... : 1970 Family Phys ................... : YONATHAN COR Phone .................. : [phone] Age ................................ : 49 Film# .................. .:[id number] Sex ................................. : M Unsigned transcriptions are preliminary reports and do not represent a medical or legal document CT ABD & PELVIS W/ IV ONLY [id number] COMPLETE:02/07/20 18:42 [id number] Reason(s): Pending CMP: Abd pain s/p surgery; [...] By Bethel Garcia M.D. , 02/08/20 12:11, [facility] Transcribe Initials: CRISTIANO , Transcribe Date: 02/07/20 22:16, Dictation Date: Copy for: MYRANDA CABRERA via fax Copy for: EMERGENCY DEPT via modem Copy for: 710 MED REC DISCHARGED Page 2 of 2 Name Value Range Interpretation Code Description Data [place] rce(s) Supporting Document(s) ID Date Data Source [id number] 02/07/2020 06:08:00 PM EDT [facility] 1 OrderSheet [facility] Emergency Department [address] [place] [address] Phone #: ext- [phone] 02/07/2020 18:07 Patient: PIPER LICEA Sex: M : 1970 Age: 49yWEIGHT:114.3 kg (M) HEIGHT:70 inches (M) BMI:36.2ALLERGIES: No Known Drug AllergyCHIEF COMPLAINT: abdominal painDIAGNOSIS: Abdominal painLAB ORDERSOrder Description Priority Entered Acknowledged InitialedCBC w Diff STAT 18:42 02/07/2020 18:52 Israel Langley R.N., P.A.-C;CMP STAT 18:42 02/07/2020 18:52 Israel Langley R.N., P.A.-C;Lipase STAT 18:42 02/07/2020 18:52 Israel Langley R.N.A.-C;Urinalysis (Clean STAT 18:42 02/07/2020 19:42 Shivam,Catch) Israel Yap R.N. PWandyA.- C;Lactic Acid STAT 18:02/07/2020 18:52 Israel Langley R.N..A.-C;Blood Culture STAT 18:42 02/07/2020 18:52 Shivam,q10m X2 (Sched Israel Yap R.N.18:42 02/07/2020) P.A.-C;Blood Culture STAT 18:42 02/07/2020 18:52 Shivam,q10m X2 (Sched Israel Yap R.N.18:52 02/07/2020) P.A.-C;Troponin-T STAT 18:02/07/2020 18:52 Israel Langley R.N.A.- C;PT/INR STAT 18:02/07/2020 18:52 Israel Langley R.N.A.-C;DIAGNOSTIC STUDY ORDERSOrder Description Priority Entered Acknowledged InitialedCT Abd PEL W/ IV STAT 18:02/07/2020 20:55 Shivam, 2 OrderS [facility] Emergency Department [address] [place] [address] Phone #: ext- [phone] 02/07/2020 18:07 Patient: PIPER LICEA Sex: M : 1970 Age: 49yContrast Only Israel Yap R.N.(Oxygen?(No)) P.A.-C;(IV?(Yes)) Reason for Study: Pending CMP: Abd pain s/p surgery; ? infectionMEDICATION/IV/DRIP/FLUID ORDERSOrder Description Priority Entered Acknowledged InitialedIV NS : Bolus 500 18:42 02/07/2020 19:11 Shivam,mL, then 75 mL/hr sIrael Yap R.N. P.A.-C;Zofran IVP 4 mg 18:42 02/07/2020 19:11 Israel Langley R.N. P.A.-C;Dilaudid IVP 1 mg 18:42 02/07/2020 19:12 Shivam,(HIGH ALERT Israel Yap R.N.MEDICATION) P.A.-C;Rocephin 21:54 02/07/2020 22:06 Shivam,(1gm/50mL) IVPB Israel Yap R.N.1000 mg with P.A.-C;Dextrose 50 mlspike bag (D5W)GENERAL ORDERSOrder Description Priority Entered Acknowledged InitialedNPO 18:42 02/07/2020 18:52 Israel Langley R.N. P.A.-C;Saline Lock 18:42 02/07/2020 18:52 Israel Langley R.N. P.A.-C;EKG 18:42 02/07/2020 18:52 Israel Langley R.N. P.A.-C;Senior Hris Analyst 18:42 02/07/2020 18:52 Shivam(continuous) Israel Yap R.N. P.A.-C;Blood Pressure 18:42 02/07/2020 18:52 Shivam,Monitor Israel Yap R.N. P.A.-C;Pulse oximeter 18:42 02/07/2020 18:52 Shivam(Continuous) Israel Yap R.N. P.A.-C; 3 OrderSheet [facility] Emergency Department [address] [place] [address] Phone #: ext- [phone] 02/07/2020 18:07 Patient: PIPER LICEA Sex: M : 1970 Age: 49y[Electronically signed by Ector Maravilla RN (00:04 02/08/2020)][Electronically signed by Israel Puri P.A.-C (10:27 02/08/2020)][Electronically locked by Ector Maravilla RN (00:02/08/2020)] Name Value Range Interpretation Code Description Data Geneva rce(s) Supporting Document(s) ID Date Data Source [id number] 02/07/2020 06:08:00 PM EDT [facility] 1 Medication Reconciliation Report [facility] Emergency Department [address] [place] [address] Phone #: ext- [phone] 02/07/2020 18:07 Patient: [...] rce(s) Supporting Document(s) ID Date Data Source [id number] 02/07/2020 06:08:00 PM EDT [facility] 1 Medication Administration Record [facility] Emergency Department [address] [place] [address] Phone #: ext- [phone] 02/07/2020 18:07 Patient: [...] wristStart ROCEPHIN (1GM/50ML) [IVPB] Rocephin (1gm/50mL) IVPB [id number] 02/07/2020 (CEFTRIAXONE SODIUM) mg with Dextrose 50 ml spike Fracisco Rider R.N. Dose: 1 gm IVPB (D5W)---- Rate: 100 mL/hr over 30 minute(s)Stop Dispensed: 50 mL bag22:36 02/07/2020 Site: #1 left wristEctor Maravilla RN Name Value Range Interpretation Code Description Data Geneva rce(s) Supporting Document(s) ID Date Data Source [id number] 02/07/2020 06:08:00 PM EDT [facility] 1 General Instructions [facility] Emergency Department [address] [place] [address] Phone #: ext- [phone] 02/07/2020 18:07 Patient: [...] or other clear liquids. 2 General Instructions [facility] Emergency Department [address] [place] [address] Phone #: ext- [phone] 02/07/2020 18:07 Patient: PIPER LICEA Sex: M [...] chest, arm, back, neck or jaw pain [phone] [email or web address]. [address] [place] [address]. All rights reserved. This information is not intended as asubstitute for professional medical care. Always follow your healthcare professional's instructions. You have been given the following additional information: Unknown Causes of Abdominal Pain (Male)(Electronically signed by Israel Puri P.A.-C 02/08/2020 10:27) Name Value Range Interpretation Code Description Data Geneva rce(s) Supporting Document(s) ID Date Data Source [id number] 02/07/2020 06:08:00 PM EDT [facility] 1 Clinical Report - Nurses [facility] Emergency Department [address] [place] [address] Phone #: ext- [phone] 02/07/2020 18:07 Patient: PIPER LICEA Sex: M : 1970 Age: 49yTRIAGEArrived by EMS. Historian: patient.Acuity: LEVEL 3.Chief Complaint: ABDOMINAL PAIN and NAUSEA and (dizzziness).Alert. No acute distress.This started last night. ( patient had a abd hernia repair yesterday by here at [facility]. States painis 04/09, with severe nausea. denies vomiting.). No diarrhea, constipation or fever. Last oral intake bypatient was lunch today.Treatment HEDGE TRIMMER:Took Tylenol.EMS Treatment HEDGE TRIMMER:See EMS report.SEPSIS SCREEN: Sepsis Screen negative. No [...] forcorrection - other(correction). Xanax Oral. --18:13 02/07/20 Maribel Perez R.N.The following entry was struck and corrected by Maribel Perez R.N., 18:14 (02/07/20) Reason forcorrection - other(correction). Meloxicam Oral. --18:13 02/07/20 Maribel Perez R.N.The following entry was struck and corrected by Maribel Perez R.N., 18:14 (02/07/20) Reason forcorrection - other(correction). CeleXA Oral. --18:13 02/07/20 Maribel Perez R.N. 2 Clinical Report - Nurses [facility] Emergency Department [address] [place] [address] Phone #: ext- [phone] 02/07/2020 18:07 Patient: [...] acute distress. 3 Clinical Report - Nurses [facility] Emergency Department [address] [place] [address] Phone #: ext- [phone] 02/07/2020 18:07 Patient: PIPER LICEA Sex: M [...] above umbilicus). 4 Clinical Report - Nurses [facility] Emergency De partment [address] [place] [address] Phone #: ext- [phone] 02/07/2020 18:07 Patient: PIPER LICEA Sex: M [...] color within normal limits. Patient transported to [place] by wheelchair.Two patient identifiers checked. Call light [...] urine. Urine: 5 Clinical Report - Nurses [facility] Emergency Department [address] [place] [address] Phone #: ext- [phone] 02/07/2020 18:07 Patient: PIPER LICEA Sex: M [...] rce(s) Supporting Document(s) ID Date Data Source [id number] 02/07/2020 06:08:00 PM EDT [facility] 1 Clinical Report - Physicians/Mid Levels [facility] Emergency Department [address] [place] [address] Phone #: ext- [phone] 02/07/2020 18:07 Patient: PIPER LICEA Sex: M [...] Heart ablation. 2 Clinical Report - Physicians/Mid Levels [facility] Emergency Department [address] [place] [address] Phone #: ext- [phone] 02/07/2020 18:07 Patient: [...] PM 3 Clinical Report - Physicians/Mid Levels [facility] Emergency Department [address] [place] [address] Phone #: ext- [phone] 02/07/2020 18:07 Patient: PIPER LICEA Sex: M : 1970 Age: 49y1. No free air or abscess.2.Small flecks of air in an area measuring approximately 1.6 cm just superior to the umbilicus likely.Laboratory Tests:PT/INR: (MARISABEL: 02/07/2020 19:01) ( MsgRcvd 02/07/2020 19:35) Final results Test Result Flag Units (Reference) PROTIME 13.3 SECONDS (11.0 - 15.5) INR 1.00 (0.93 - 1.23) \\BLDo\\INR INTERPRETATION\\BLDx\\ Therapeutic range for C oumadin andrelated oral anticoagulants. -International Normalized Ratio (INR): 2.0 - 3.0 for VenousThrombosis, Pulmonary Embolus, Tissue heart valves, Acute [place], Atrial Fibrillation, Valvular heartdisease and recurrent Systemic Embolism. -International Normalized Ratio (INR): 2.5 - 3.5for Mechanical Prosthetic valve.CBC w Diff: (MARISABEL: 02/07/2020 19:01) ( MsgRcvd 02/07/2020 19:57) Final results Test Result Flag [...] % 4 Clinical Report - Physicians/Mid Levels [facility] Emergency Department [address] [place] [address] Phone #: ext- [phone] 02/07/2020 18:07 -------- [...] Male GFR Interprentation 20-49 yrs >60 mL/min Ybshdj36-42 yrs >56 mL/min Normal 60-69 yrs >49 mL/min Normal 70-79yrs>42 mL/min Normal 80 and above >35 mL/min Normal Female GFRInterpretation 20-39 yrs >60 mL/min Normal 40-49 yrs >58 mL/minNormal 50-59 yrs >51 mL/min Normal 60-69 yrs >45 mL/min Ljtlen11-23 yrs >39 mL/min Normal 80 and above >32 mL/min NormalLipase: (MARISABEL: 02/07/2020 19:01) ( MsgRcvd 02/07/2020 20:03) Final results Test Result Flag Units (Reference) LIPASE 22 U/L (13 - 60)Urinalysis: (MARISABEL: 02/07/2020 19:40) ( MsgRcvd 02/07/2020 20:03) Final results Test [...] Negat 5 Clinical Report - Physicians/Mid Levels [facility] Emergency Department [address] [place] [address] Phone #: ext- [phone] 02/07/2020 18:07 Patient: PIPER LICEA Sex: M : 1970 Age: 49y UROBILINOGEN NOR (less than 1.0 MICROSCOPIC Not Indicate Lactic Acid: (MARISABEL: 02/07/2020 19:01) ( [facility] 02/07/2020 19:19) Final results Test Result Flag Units (Reference) LACTIC ACID 1.5 MMOL/L (0.2 - 2.2) Troponin-T: (MARISABEL: 02/07/2020 19:01) ( [facility] 02/07/2020 19:35) Final results Test Result Flag Units (Reference) TROPONIN T <0.01 NG/ML (0.00 - 0.10) TROPONIN T0.1 ng/ml Recommended as the clinical threshold value forTroponimarisela T..PROGRESS AND PROCEDURES Course of Care: VSS, NAD, AOx3, interacting well and appropriately, no use of accessory muscle, able to speak full sentences, stable, non-toxic looking. Enter room and pt lying peacefully in bed in NAD. Patient stable. Denies any new issues, concerns, or complaints. PE demos NV itnact b/l UE and LE. Noted TTP of abd and ntoed surgical scar. NToed encompassing erythema, approx 8-10cm in diameter; ? irratation vs infection. WIll obtain and imaging for cody Martinez resutjuan diego. Reviewed results. Contacted surgon production control analyst (Dr. Meeks); informed of pt, informed that Dr. Richardson had done the surgery yesterday. Sts that not production control analyst and that Dr. Richardson is covering. Understood [...] and pain meds. Infomred I will review OSTEOLOGIST and agrees. Sts that he will see [...] AM. 6 Clinical Report - Physicians/Mid Levels [facility] Emergency Department [address] [place] [address] Phone #: ext- [phone] 02/07/2020 18:07 Patient: PIPER LICEA Sex: M : 1970 Age: 49yOrdered abx.22:18 02/07/20. Disucssed with attending and she indicates to admit pt for observation and for continued IVabx. ? early infectoion vs post op changes and so soon after surgery (yesterday) It does appears to beworsening; lives by himself. Contacted hospitalist to discuss.Reviewed OSTEOLOGIST.This report was requested by: Israel Puri Reference #: [id number] PrescriptionsPatient Name: Piper LiceaBirth Date: 1970Address: [address], [place] [address]Uwb: MaleRx Written Rx Dispensed Drug Quantity Days Supply Prescriber Name Payment Method Znxroadua80/02/2020 08/10/2019 alprazolam 0.5 mg tablet 30 30 Ashcroft, Maryanne M [facility], [facility] #07/13/2019 alprazolam 0.5 mg tablet 30 30 Ashcroft, Maryanne M [facility], [facility] #07/03/2019 testosterone cyp 200 mg/ml 4ml 30 [facility], [facility] #06/13/2019 alprazolam 0.5 mg tablet 60 30 Ashcroft, Maryanne [facility], [facility] #05/16/2019 alprazolam 0.5 mg tablet 60 30 Ashcroft, Maryanne [facility] [place], [facility] #11105/02/2019 testosterone cyp 200 mg/ml 4ml 30 Yonathan, Kelli A [facility] [place], [facility] #11104/20/2019 alprazolam 0.5 mg tablet 60 30 Ashcroft, Maryanne [facility] [place], [facility] #11003/21/2019 testosterone cyp 200 mg/ml 4ml 30 [facility], Kelli A [facility], [facility] #11003/21/2019 alprazolam 0.5 mg tablet 60 30 Ashcroft, Maryanne M [facility] [place], [facility] #10902/23/2019 alprazolam 0.5 mg tablet 60 30 Ashcroft, Maryanne [facility], [facility] #10902/16/2019 testosterone cyp 200 mg/ml 4ml 30 Kelli Mcmanus A [facility] #1Patient Name: Piper LiceaBirth Date: 1970Address: [address] [address]Dco: MaleRx Written Rx Dispensed Drug Quantity Days Supply Prescriber Name Payment Method Xjrlxkxql08/25/2020 01/24/2020 alprazolam 0.5 mg tablet 30 30 [facility], [facility]#01/01/2020 alprazolam 0.5 mg tablet 30 [facility] 7 Clinical Report - Physicians/Mid Levels [facility] Emergency Department [address] [place] [address] Phone #: ext- [phone] 02/07/2020 18:07 Patient: [facility]ICEA [id number] Sex: M : 1970 Age: 49y 11/29/2019 11/30/2019 alprazolam 0.5 mg tablet 30 30 Jacquelin Erickson MD [facility], [facility] #1 11/29/2019 11/30/2019 testosterone cyp 200 mg/ml 4ml 30 Jacquelin Erickson MD [facility], [facility] #1 10/31/2019 11/02/2019 alprazolam 0.5 mg tablet 30 30 AshcroftMaryanne I [facility], [facility] #1 10/19/2019 10/24/2019 testosterone cyp 200 mg/ml 4ml 30 Yonathan, [facility], [facility] #1 09/04/2019 09/11/2019 alprazolam 0.5 mg tablet 30 30 AshMaryanne baugh [facility], [facility] #1 08/21/2019 08/23/2019 testosterone cyp 200 mg/ml 4ml 30 Yonathan, [facility] #1 22:31 02/07/20. Contact hosptilist and she [...] rce(s) Supporting Document(s) ID Date Data Source [id number] 02/08/2020 07:10:00 AM EDT [facility] Name Value Range Interpretation Code Description Data Geneva rce(s) Supporting Document(s) BASIC METABOLIC PANEL [facility] BASIC METABOLIC PANEL Sodium [Moles/volume] in Serum or Plasma 140 mEq/L 134 - 153 [facility] Potassium [Moles/volume] in Serum or Plasma 4.6 mEq/L 3.6 - 5.0 [facility] Chloride [Moles/volume] in Serum or Plasma 105 mEq/L 98 - 107 [facility] Carbon dioxide, total [Moles/volume] in Serum or Plasma 28 MEQ/L 22 - 30 [facility] Glucose [Mass/volume] in Serum or Plasma 79 MG/DL 65 - 110 [facility] BUN 8 MG/DL 7 - [facility] Creatinine [Mass/volume] in Serum or Plasma 0.8 MG/DL 0.7 - 1.5 [facility] BUN/CREAT 10 8 - 27 [facility] Calcium [Mass/volume] in Serum or Plasma 8.8 MG/DL 8.4 - 10.2 [facility] Anion gap 3 in Serum or Plasma 7.0 mmol/L 8.0 - 16.0 L [facility] AGE 49 yrs [facility] AFR AMER GFR >60 mL/min [facility] NON-AA GFR >60 mL/min [facility] ital Male GFR Inter prentation 20-49 [...] >32 mL/min Normal ID Date Data Source [id number] 02/08/2020 06:48:00 AM EDT [facility] Name Value Range Interpretation Code Description Data Geneva rce(s) Supporting Document(s) CBC W/AUTOMATED DIFF [facility] COMPLETE BLOOD COUNT Leukocytes [#/volume] in Blood by Automated count 10.3 10^3/uL 4.2 - 11.0 [facility] Erythrocytes [#/volume] in Blood by Automated count 5.17 10^6/uL 4. 50 - 6.30 [facility] Hemoglobin [Mass/volume] in Blood 15.7 g/dL 14.0 - 16.0 [facility] Hematocrit [Volume Fraction] of Blood by Automated count 45.9 % 4 1.0 - 51.0 [facility] Erythrocyte mean corpuscular volume [Entitic volume] by Auto mated count 88.8 fL 80.0 - 94.0 [facility] Erythrocyte mean corpuscular hemoglobin [Entitic mass] by Automated count 30.4 pg 27.0 - 34.0 [facility] Erythrocyte mean corpuscular hemoglobin concentration [Mass/volume] by Automated count 34.2 g/dL 31.0 - 36.0 [facility] Erythrocyte distribution width [Ratio] by Automated count 13.2 % 11.5 - 14.8 [facility] Platelets [#/volume] in Blood by Automated count 259 10^3/uL 150 - 45 0 [facility] Platelet mean volume [Entitic volume] in Blood by Automated count 9.7 fL 7.4 - 10.4 [facility] Neutrophils/100 leukocytes in Blood by Automated count 48.8 % 37. 0 - 80.0 [facility] Lymphocytes/100 leukocytes in Blood by Manual count 40.7 % 25.0 - 40.0 H [facility] Monocytes/100 leukocytes in Blood by Automated count 9.6 % 3.0 - 8.0 H [facility] Eosinophils/100 leukocytes in Blood by Automated count 0.4 % 0.0 - 7.0 [facility] Basophils/100 leukocytes in Blood by Automated count 0.3 % 0.0 - 2.0 [facility] %IG 0.2 % 0.0 - 0.0 [facility] %[facility] 0.0 % 0.0 - 0.0 [facility] al Neutrophils [#/volume] in Blood by Automated count 5.05 10^3/uL 2.00 - 6.90 [facility] Lymphocytes [#/volume] in Blood by Automated count 4.21 10^3/uL 0.60 - 3.40 H [facility] Monocytes [#/volume] in Blood by Automated count 0.99 10^3/uL 0.00 - 0.90 H [facility] Eosinophils [#/volume] in Blood by Automated count 0.04 10^3/uL 0.00 - 0.70 [facility] Basophils [#/volume] in Blood by Automated count 0.03 10^3/uL 0.00 - 0.20 [facility] #IG 0.02 10^3/uL 0.00 - 0.10 [facility] ospital #NRBC 0.00 10^3/uL 0.00 - 0.00 [facility] MANUAL DIFF NOT INDICATED [facility] RBC MORPH NOT INDICATED [facility] ID Date Data Source [id number] 02/07/2020 08:02:00 PM EDT [facility] Name Value Range Interpretation Code Description Data Geneva rce(s) Supporting Document(s) URINALYSIS [facility] URINALYSIS SOURCE Clean Catch [facility] ital COLOR yellow NORMAL: Yellow [facility] CLARITY clear NORMAL: Clear [facility] Specific gravity of Urine by Test strip 1.005 1.001 - 1.030 [facility] pH 7 5 - 9 [facility] Glucose [Mass/volume] in Urine by Test strip NORM NORMAL: Negat [facility] Bilirubin.total [Presence] in Urine by Test strip NEG NORMAL: Negative [facility] Ketones [Presence] in Urine by Test strip 5 NORMAL: Negative A [facility] Protein [Mass/volume] in Urine by Test strip NEG NORMAL: Negat [facility] Nitrite [Presence] in Urine by Test strip NEG NORMAL: Negative [facility] BLOOD NEG NORMAL: Negative [facility] Leukocyte esterase [Presence] in Urine by Test strip NEG PHILLIP L: Negative [facility] Urobilinogen [Mass/volume] in Urine by Test strip NOR less ani n 1.0 mg/dL [facility] MICROSCOPIC Not Indicate [facility] ID Date Data Source [id number] 02/14/2020 06:37:00 AM EDT [facility] [id number] STAIN = GRAM POSITIVE SHAISTA CI IN WUCBLLMF88/11/20 1137 CALLED TO BYRON Husain BY LAMINE, RESULTS READ BACK02/14/20 0636 CALLED TO NANETTE Sanchez BY LAMINE, RESULTS READBACKMICROCOCCUS & RELATED SPECIES Name Value Range Interpretation Code Description Data Geneva rce(s) Supporting Document(s) Bacteria identified in Blood by Culture [facility] NO GROWTH AFTER 5 DAYS ID Date Data Source [id number] 02/09/2020 11:39:00 AM EDT [facility] 02/09/20 1137 CALLED TO BYRON Husain BY KARL Magaña, RESULTS READ BACKThe Hexaformer BCID Panel is a qualitative multiplexednucleic acid-based [...] rce(s) Supporting Document(s) ID Date Data Source [id number] 02/14/2020 11:42:00 AM EDT [facility] Name Value Range Interpretation Code Description Data Geneva rce(s) Supporting Document(s) CULTURE BLOOD [facility] _CULTURE BLOOD_{ PRELIM GROWTH OF GRAM POSITIVE COCCI IN CLUSTERS TEST PERFORMED AT [address] [address] CLIA# [id number] SEE SCANNED REPORTCALLED T0 REINIER ON AIU 02/09/20 1145 CM ID Date Data Source [id number] 02/07/2020 08:03:00 PM EDT [facility] Name Value Range Interpretation Code Description Data Geneva rce(s) Supporting Document(s) Lipase [Enzymatic activity/volume] in Serum or Plasma 22 U/L 13 - 60 [facility] ID Date Data Source [id number] 02/07/2020 08:03:00 PM EDT [facility] Name Value Range Interpretation Code Description Data Geneva rce(s) Supporting Document(s) COMPREHENSIVE METABOLIC PANEL [facility] COMPREHENSIVE METABOLIC PANEL Sodium [Moles/volume] in Serum or Plasma 133 mEq/L 134 - 153 L [facility] Potassium [Moles/volume] in Serum or Plasma 3.7 mEq/L 3.6 - 5.0 [facility] Chloride [Moles/volume] in Serum or Plasma 96 mEq/L 98 - 107 L [facility] Carbon dioxide, total [Moles/volume] in Serum or Plasma 23 MEQ/L 22 - 30 [facility] Glucose [Mass/volume] in Serum or Plasma 99 MG/DL 65 - 110 [facility] BUN 8 MG/DL 7 - 21 [facility] al Creatinine [Mass/volume] in Serum or Plasma 0.7 MG/DL 0.7 - 1.5 [facility] BUN/CREAT 11 8 - 27 [facility] Protein [Mass/volume] in Serum or Plasma 6.0 G/DL 6.3 - 8.2 L [facility] Albumin [Mass/volume] in Serum or Plasma 4.5 G/DL 3.9 - 5.0 [facility] Globulin [Mass/volume] in Serum by calculation 1.5 GM/DL 2.4 - 3.2 L [facility] A/G RATIO 3.0 0.8 - 2.0 H [facility] Calcium [Mass/volume] in Serum or Plasma 9.4 MG/DL 8.4 - 10.2 [facility] Bilirubin.total [Mass/volume] in Serum or Plasma <0.7 MG/DL 0.2 - 1.3 [facility] Alkaline phosphatase [Enzymatic activity/volume] in Serum or Plasma 56 U/L 38 - 126 [facility] Aspartate aminotransferase [Enzymatic activity/volume] in Serum or Plasma 26 U/L 5 - 40 [facility] Alanine aminotransferase [Enzymatic activity/volume] in Seru m or Plasma 25 U/L 7 - 56 [facility] Anion gap 3 in Serum or Plasma 14.0 mmol/L 8.0 - 16.0 [facility] AGE 49 yrs [facility] al NON-AA GFR >60 mL/min [facility] ital AFR AMER GFR >60 mL/min [facility] Male GFR In terprentation 20-49 [...] >32 mL/min Normal ID Date Data Source [id number] 02/07/2020 07:56:00 PM EDT [facility] Name Value Range Interpretation Code Description Data Geneva rce(s) Supporting Document(s) CBC W/AUTOMATED DIFF [facility] COMPLETE BLOOD COUNT Leukocytes [#/volume] in Blood by Automated count 12.4 10^3/uL 4.2 - 11.0 H [facility] Erythrocytes [#/volume] in Blood by Automated count 5.27 10^6/uL 4. 50 - 6.30 [facility] Hemoglobin [Mass/volume] in Blood 16.1 g/dL 14.0 - 16.0 H [facility] Hematocrit [Volume Fraction] of Blood by Automated count 45.9 % 4 1.0 - 51.0 [facility] Erythrocyte mean corpuscular volume [Entitic volume] by Auto mated count 87.1 fL 80.0 - 94.0 [facility] Erythrocyte mean corpuscular hemoglobin [Entitic mass] by Automated count 30.6 pg 27.0 - 34.0 [facility] Erythrocyte mean corpuscular hemoglobin concentration [Mass/volume] by Automated count 35.1 g/dL 31.0 - 36.0 [facility] Erythrocyte distribution width [Ratio] by Automated count 13.0 % 11.5 - 14.8 [facility] Platelets [#/volume] in Blood by Automated count 245 10^3/uL 150 - 45 0 [facility] Platelet mean volume [Entitic volume] in Blood by Automated count 10.2 fL 7.4 - 10.4 [facility] Neutrophils/100 leukocytes in Blood by Automated count 61.3 % 37. 0 - 80.0 [facility] Lymphocytes/100 leukocytes in Blood by Manual count 28.6 % 25.0 - 40.0 [facility] Monocytes/100 leukocytes in Blood by Automated count 9.5 % 3.0 - 8.0 H [facility] Eosinophils/100 leukocytes in Blood by Automated count 0.2 % 0.0 - 7.0 [facility] 0.2 %IG 0.2 % 0.0 - 0.0 H [facility] %NRBC 0.0 % 0.0 - 0.0 [facility] Neutrophils [#/volume] in Blood by Automated count 7.58 10^3/uL 2.00 - 6.90 H [facility] Lymphocytes [#/volume] in Blood by Automated count 3.53 10^3/uL 0.60 - 3.40 H [facility] Monocytes [#/volume] in Blood by Automated count 1.18 10^3/uL 0.00 - 0.90 H [facility] Eosinophils [#/volume] in Blood by Automated count 0.02 10^3/uL 0.00 - 0.70 [facility] Basophils [#/volume] in Blood by Automated count 0.02 10^3/uL 0.00 - 0.20 [facility] #IG 0.03 10^3/uL 0.00 - 0.10 [facility] #NRBC 0.00 10^3/uL 0.00 - 0.00 [facility] MANUAL DIFF SEE BELOW [facility] ital Segmented neutrophils/100 leukocytes in Blood by Manual count 63 % 37 - 80 [facility] BAND 0 % 0 - 5 [facility] %LYMPH 27 % 25 - 40 [facility] %MONO 10 % 3 - 8 H [facility] %EOS 0 % 0 - 7 [facility] Metamyelocytes/100 leukocytes in Blood by Manual count 0 % [facility] Myelocytes/100 leukocytes in Blood by Manual count 0 % [facility] Promyelocytes/100 leukocytes in Blood by Manual count 0 % [facility] Blasts/100 leukocytes in Blood by Manual count 0 % [facility] SAMANTHA LYM 0 % [facility] Nucleated erythrocytes/100 erythrocytes in Blood by Manual count 0 % [facility] RBC MORPH NOT INDICATED [facility] ID Date Data Source [id number] 02/07/2020 07:35:00 PM EDT [facility] Name Value Range Interpretation Code Description Data Geneva rce(s) Supporting Document(s) TROPONIN T <0.01 NG/ML 0.00 - 0.10 [facility] TROPONIN T0.1 ng/ml Recommended as the c linical threshold value forTroponin T. ID Date Data Source [id number] 02/07/2020 07:35:00 PM EDT [facility] Name Value Range Interpretation Code Description Data Geneva rce(s) Supporting Document(s) Prothrombin time (PT) 13.3 SECONDS 11.0 - 15.5 [facility] INR in Platelet poor plasma by Coagulation assay 1.00 0.93 - 1. 23 [facility] \\BLDo\\INR INTERPRETATION\\BLDx\\ Therapeutic range for Coumadin and related oral anticoagulants. - International Normalized Ratio (INR): 2.0 - 3.0 for Venous Thrombosis, Pulmonary Embolus, Tissue heart valves, Acute [place], Atrial Fibrillation, Valvular heart disease and recurrent Systemic Embolism. -International Normalized Ratio (INR): 2.5 - 3.5 for Mechanical Prosthetic valve. ID Date Data Source [id number] 02/07/2020 07:19:00 PM EDT [facility] Name Value Range Interpretation Code Description Data Geneva rce(s) Supporting Document(s) Lactate [Moles/volume] in Serum or Plasma 1.5 MMOL/L 0.2 - 2.2 [facility] ID Date Data Source [id number] 02/14/2020 11:41:00 AM EDT [facility] Name Value Range Interpretation Code Description Data Geneva rce(s) Supporting Document(s) CULTURE BLOOD [facility] _CULTURE BLOOD_ TEST [place] [address] CLIA# [id number] SEE SCANNED REPORT{ PRELIM ID Date Data Source [id number] 02/06/2020 03:23:00 PM EDT [facility] Name Value Range Interpretation Code Description Data Geneva rce(s) Supporting Document(s) SARS coronavirus 2 RNA [facility] This lab was ordered by [facility] stephanie and reported by [facility]. ID Date Data Source [id number] 02/08/2020 11:21:00 AM EDT [facility] Name Value Range Interpretation Code Description Data Geneva rce(s) Supporting Document(s) SARS-CoV-2, RICARDO Not Detected Not Detected [facility] This nucleic acid amplification test was developed and its performancecharacteristics determined by [facility]. Nucleic acidamplification tests include PCR and TMA. [...] in this assay. ID Date Data Source [id number] 02/06/2020 04:03:00 PM EDT [facility] Name Value Range Interpretation Code Description Data Geneva rce(s) Supporting Document(s) Sodium [Moles/volume] in Serum or Plasma 135 mEq/L 134 - 153 [facility] Potassium [Moles/volume] in Serum or Plasma 4.2 mEq/L 3.6 - 5.0 [facility] Chloride [Moles/volume] in Serum or Plasma 98 mEq/L 98 - 107 [facility] Carbon dioxide, total [Moles/volume] in Serum or Plasma 27 MEQ/L 22 - 30 [facility] ID Date Data Source [id number] 02/06/2020 03:33:00 PM EDT [facility] Name Value Range Interpretation Code Description Data Geneva rce(s) Supporting Document(s) CBC NO DIFF [facility] ital COMPLETE BLOOD COUNT Leukocytes [#/volume] in Blood by Automated count 8.8 10^3/uL 4.2 - 1 1.0 [facility] Erythrocytes [#/volume] in Blood by Automated count 5.38 10^6/uL 4. 50 - 6.30 [facility] Hemoglobin [Mass/volume] in Blood 16.5 g/dL 14.0 - 16.0 H [facility] Hematocrit [Volume Fraction] of Blood by Automated count 47.8 % 4 1.0 - 51.0 [facility] Erythrocyte mean corpuscular volume [Entitic volume] by Auto mated count 88.8 fL 80.0 - 94.0 [facility] Erythrocyte mean corpuscular hemoglobin [Entitic mass] by Automated count 30.7 pg 27.0 - 34.0 [facility] Erythrocyte mean corpuscular hemoglobin concentration [Mass/volume] by Automated count 34.5 g/dL 31.0 - 36.0 [facility] Erythrocyte distribution width [Ratio] by Automated count 13.2 % 11.5 - 14.8 [facility] Platelets [#/volume] in Blood by Automated count 240 10^3/uL 150 - 45 0 [facility] Platelet mean volume [Entitic volume] in Blood by Automated count 9.6 fL 7.4 - 10.4 [facility] ID Date Data Source [id number] 02/05/2020 11:46:00 PM EDT [facility] [address] [id number] [phone] NAME SEX PT STATUS ACCOUNT NUMBER PIPER LICEA [facility] [id number] ORDERING PHYSICIAN LOCATION MEDICAL RECORD NO. Skip Rutherford MD ER [id number] ATTENDING PHYSICIAN DATE OF DATE OF EXAM/TIME [...] Reported By Preston Lucas MD on 02/05/20 481 Signed By Preston Lucas MD on 02/05/202345 Date Time CC: Kelli Lucas MD Techn: RAULITO Trans Dt/Tm: Trans by: DT Prt Dt/Tm: 11: Total DLP = 1145.00 mGy-cm : Total Radiation Dose = 17.1750 mSv Lifetime Dose: 17.1750 mSv Name Value Range Interpretation Code Description Data Geneva rce(s) Supporting Document(s) ID Date Data Source [id number] 02/05/2020 09:45:00 PM EDT [facility] Special Instructions: Lab may order repe at test if initial test elevatedPhysician If elevated, reflex second test in 4-6 hrs Name Value Range Interpretation Code Description Data [place] rce(s) Supporting Document(s) Leukocytes [#/volume] in Blood by Automated count 9.0 10*3/uL 4.45-10 .71 N [facility] Erythrocytes [#/volume] in Blood by Automated count 5.38 10*6/uL 4.3- 6.1 N [facility] Hemoglobin [Moles/volume] in Blood 16.6 g/dL 13-18 N [facility] Hematocrit [Volume Fraction] of Blood by Automated count 47.1 % 4 2-52 N [facility] Erythrocyte mean corpuscular volume [Ent itic volume] in Cord blood by Automated count 87.5 fL 80-96 N [facility] ital Erythrocyte mean corpuscular hemoglobin [Entitic mass] by Automated count 30.9 pg 27-31 [facility] Erythrocyte mean corpuscular hemoglobin concentration [Mass/volume] in Cord blood 35.2 g/dL 33-37 N [facility] ital Erythrocyte distribution width [Entitic volume] by Automated count 13 % 11-15 N [facility] Platelets [#/volume] in Blood by Automated count 246 10*3/uL 130-472 N [facility] Platelet mean volume [Entitic volume] in Blood 9.5 fL 9.1-13.1 N [facility] Neutrophils/100 leukocytes in Blood by Automated count 55.4 % 41- 77 N [facility] Neutrophils [#/volume] in Blood by Automated count 5.0 U 1.7-7.6 N [facility] Lymphocytes/100 leukocytes in Blood by Automated count 36.9 % 14- 46 N [facility] Lymphocytes [#/volume] in Blood by Automated count 3.3 U 0.6-4.6 N [facility] Monocytes/100 leukocytes in Blood by Automated count 6.6 % 4-12 N [facility] Monocytes [#/volume] in Blood by Automated count 0.6 U 0.2-1.2 N [facility] Eosinophils/100 leukocytes in Blood by Automated count 0.6 % 0-7 N [facility] Eosinophils [#/volume] in Blood by Automated count 0.1 U 0.0-0.5 N [facility] Basophils/100 leukocytes in Blood by Automated count 0.3 % 0.4-1.3 Below low normal [facility] Basophils [#/volume] in Blood by Automated count 0.0 U 0.0-0.2 N [facility] NUCLEATED RED BLOOD CELL 0 % [facility] NUCLEATED RED BLOOD CELL# 0 U [facility] Immature granulocytes [Presence] in Blood by Automated count 0-2 N [facility] Immature granulocytes [#/volume] in Blood by Automated count 0.0 U 0-0.1 N [facility] Manual Differential panel - Blood NO [facility] ID Date Data Source [id number] 02/05/2020 10:07:00 PM EDT [facility] Special Instructions: Lab may order repe at test if initial test elevatedPhysician If elevated, reflex second test in 4-6 hrs Name Value Range Interpretation Code Description Data Geneva rce(s) Supporting Document(s) Prothrombin Time (Patient) 11.2 s 9.6-12.3 N [facility] INR 1.1 0.9-1.1 [facility] THE INR IS OPERATIONALLY DEFINED FOR GILMA SH PLASMA FROMPATIENTS STABILIZED ON ORAL ANTICOAGULANTS.ROUTINE ANTICOAGULANT THERAPY 2.0-3.0RECURRENT SYSTEMIC EMBOLISM/HEART VALVE REPLACEMENT 2.5-3.5 aPTT.lupus sensitive (LA screen) 26.4 s 22.7-31.6 N [facility] ID Date Data Source [id number] 02/05/2020 10:19:00 PM EDT [facility] Special Instructions: Lab may order repe at test if initial test elevatedPhysician If elevated, reflex second test in 4-6 hrs Name Value Range Interpretation Code Description Data [place] rce(s) Supporting Document(s) Lactic w Rfx (if elevated) 0.8 mmol/L 0.5-2.2 N [facility] ID Date Data Source [id number] 02/05/2020 10:19:00 PM EDT [facility] Special Instructions: Lab may order repe at test if initial test elevatedPhysician If elevated, reflex second test in 4-6 hrs Name Value Range Interpretation Code Description Data [place] rce(s) Supporting Document(s) Urea nitrogen [Mass/volume] in Serum or Plasma 8 mg/dL 9-23 Below low normal [facility] Sodium [Moles/volume] in Serum or Plasma 137 mmol/L 132-146 N [facility] Potassium [Moles/volume] in Serum or Plasma 3.7 mmol/L 3.5-5.5 [facility] Chloride [Moles/volume] in Serum or Plasma 105 mmol/L 99-109 [facility] Carbon dioxide, total [Moles/volume] in Serum or Plasma 25 mmol/L 20 -31 [facility] Anion gap in Serum or Plasma 11 mmol/L 8-16 [facility] Glucose [Mass/volume] in Serum or Plasma 92 mg/dL 74-106 [facility] Creatinine 0.7 mg/dL 0.5-1.1 [facility] Glomerular filtration rate/1.73 sq M.pre dicted [Volume Rate/Area] in Serum or Plasma Greater Than 60 ABOVE 60 [facility] Alanine aminotransferase [Enzymatic acti vity/volume] in Serum or Plasma by With P-5'-P 36 U/L 10-49 [facility] ital Aspartate aminotransferase [Enzymatic ac tivity/volume] in Serum or Plasma by With P-5'-P 22 U/L 0-33 [facility] pital Alkaline phosphatase [Enzymatic activity/volume] in Serum or Plasma 55 U/L 45-129 [facility] Calcium [Mass/volume] in Serum or Plasma 9.4 mg/dL 8.5-10.1 [facility] Bilirubin.total [Mass/volume] in Serum or Plasma 0.7 mg/dL 0.3-1.2 [facility] Albumin [Mass/volume] in Serum or Plasma by Bromocresol purple (BCP) dye binding method 3.9 g/dL 3.2-4.8 N [facility] ital Protein [Mass/volume] in Serum or Plasma 6.6 g/dL 5.7-8.2 N [facility] ID Date Data Source [id number] 02/05/2020 09:19:00 PM EDT [facility] ED Physician Documentation NAME: PIPER LICEA : 1970 AGE: 49 MR#: [id number] SERVICE DATE: 02/05/[address]: Skip Rutherford MD PRIMARY CARE DR: Kelli Mcmanus [facility] ROOM#: HPI (Adult, General) General Chief Complaint: GI Stated Complaint: ABD PAIN, BACK PAIN Resident LT, travel outisde home, exposure to hot tubs:: [...] Appearance Clear, Urine pH 7.0, Ur Specific [place] 1.008,Urine Protein Negative, Urine Ketones Trace A, [...] % (Auto) 55.4, Lymph % (Auto) 36.9, Holt % (Auto) 6.6, Eos % (Auto) 0.6, Baso % (Auto) 0.3 L, Lymph # (Auto) 3.3, Abs Immat Gran (auto) 0.0, Add Manual Diff No, Absolute Neutrophils 5.0, Monocytes # 0.6, Absolute Eosinophils 0.1, Absolute Basophils 0.0 02/05/20 21:35: PT 11.2, INR 1.1, PTT ([place]) 26.4 02/05/20 21:35: Sodium 137, Potassium 3.7, [...] rce(s) Supporting Document(s) ID Date Data Source [id number] 02/05/2020 10:00:00 PM EDT [facility] Reason for ordering culture: Abnormal fi ndings UAMethod of Collection:: Voided Name Value Range Interpretation Code Description Data [place] rce(s) Supporting Document(s) Color of Urine [facility] Appearance of Urine CLEAR [facility] pH of Urine by Test strip 7.0 5-8 [facility] Specific gravity of Urine by Refractometry 1.008 1.005-1.030 [facility] Leukocyte esterase [Presence] in Urine by Test strip NEGAT JALEN [facility] Nitrite [Presence] in Urine by Test strip NEGATIVE [facility] Protein [Presence] in Urine by Test strip NEGATIVE [facility] Glucose [Mass/volume] in Urine by Automated test strip NEGATIVE NEG ATIVE [facility] Ketones [Presence] in Urine by Test strip NEGATI VE Abnormal (applies to non- numeric results) [facility] Urobilinogen [Presence] in Urine 0.2-1 EU/dl [facility] Bilirubin.total [Presence] in Urine by Automated test strip NEGATIVE [facility] Erythrocytes [#/volume] in Urine by Test strip NEGATIVE NEGATIVE [facility] URINE MICROSCOPIC? (CIF) NO [facility] ID Date Data Source [id number] 02/01/2020 03:30:00 PM EDT [facility] Name Value Range Interpretation Code Description Data [place] rce(s) Supporting Document(s) Leukocytes [#/volume] in Blood by Automated count 10.0 10*3/uL 4.45-1 0.71 N [facility] Erythrocytes [#/volume] in Blood by Automated count 5.61 10*6/uL 4.3- 6.1 N [facility] Hemoglobin [Moles/volume] in Blood 17.4 g/dL 13-18 N [facility] Hematocrit [Volume Fraction] of Blood by Automated count 48.4 % 4 2-52 N [facility] Erythrocyte mean corpuscular volume [Ent itic volume] in Cord blood by Automated count 86.3 fL 80-96 N [facility] ital Erythrocyte mean corpuscular hemoglobin [Entitic mass] by Automated count 31.0 pg 27-31 [facility] Erythrocyte mean corpuscular hemoglobin concentration [Mass/volume] in Cord blood 36.0 g/dL 33-37 N [facility] ital Erythrocyte distribution width [Entitic volume] by Automated count 13 % 11-15 N [facility] Platelets [#/volume] in Blood by Automated count 256 10*3/uL 130-472 N [facility] Platelet mean volume [Entitic volume] in Blood 9.5 fL 9.1-13.1 N [facility] Neutrophils/100 leukocytes in Blood by Automated count 55.4 % 41- 77 N [facility] Neutrophils [#/volume] in Blood by Automated count 5.6 U 1.7-7.6 N [facility] Lymphocytes/100 leukocytes in Blood by Automated count 35.2 % 14- 46 N [facility] Lymphocytes [#/volume] in Blood by Automated count 3.5 U 0.6-4.6 N [facility] Monocytes/100 leukocytes in Blood by Automated count 8.5 % 4-12 N [facility] Monocytes [#/volume] in Blood by Automated count 0.9 U 0.2-1.2 N [facility] Eosinophils/100 leukocytes in Blood by Automated count 0.5 % 0-7 N [facility] Eosinophils [#/volume] in Blood by Automated count 0.1 U 0.0-0.5 N [facility] Basophils/100 leukocytes in Blood by Automated count 0.3 % 0.4-1.3 Below low normal [facility] Basophils [#/volume] in Blood by Automated count 0.0 U 0.0-0.2 N [facility] NUCLEATED RED BLOOD CELL 0 % [facility] NUCLEATED RED BLOOD CELL# 0 U [facility] Immature granulocytes [Presence] in Blood by Automated count 0-2 N [facility] Immature granulocytes [#/volume] in Blood by Automated count 0.0 U 0-0.1 N [facility] Manual Differential panel - Blood NO [facility] ID Date Data Source [id number] 02/01/2020 03:59:00 PM EDT [facility] Name Value Range Interpretation Code Description Data [place] rce(s) Supporting Document(s) Urea nitrogen [Mass/volume] in Serum or Plasma 6 mg/dL 9-23 Below low normal [facility] Sodium [Moles/volume] in Serum or Plasma 134 mmol/L 132-146 [facility] Potassium [Moles/volume] in Serum or Plasma 4.0 mmol/L 3.5-5.5 [facility] Chloride [Moles/volume] in Serum or Plasma 101 mmol/L 99-109 N [facility] Carbon dioxide, total [Moles/volume] in Serum or Plasma 28 mmol/L 20 -31 [facility] Anion gap in Serum or Plasma 9 mmol/L 8-16 [facility] Glucose [Mass/volume] in Serum or Plasma 92 mg/dL 74-106 N [facility] Creatinine 0.9 mg/dL 0.5-1.1 [facility] Glomerular filtration rate/1.73 sq M.pre dicted [Volume Rate/Area] in Serum or Plasma Greater Than 60 ABOVE 60 [facility] Calcium [Mass/volume] in Serum or Plasma 9.9 mg/dL 8.5-10.1 N [facility] ID Date Data Source [id number] 02/01/2020 02:32:00 PM EDT [facility] Name: PIPER LICEA : 1970 Age: 49 MR#: [id number] Admit Date: 02/01/20 Provider: Naveed Hannon MD [...] pt states has had hernia x 4yrs Tire Bladder Maker Required: No Is patient in pain?: No [...] Screening Screening Have you traveled outside of [facility] or [facility] in the last 14 days.: No Has patient experienced coronavirus symptoms: No [facility] Medical History (Updated 02/01/20 @ 14:51 by [...] hernia without obstruction or gangrene Plan - Sung Riddhi: 49 yoM who comes in with long-standing [...] hernia without obstruction or gangrene SNOMED Code(s): 114636134 Category: Surgical Dictated by: <Electronically signed by Naveed Hannon > Naveed Hannon 02/01/20 1940 Naveed Hannon SIGNATURE DA Report Cosigners: D: ROBINSON 02/01/20 1432 T: HARRIS 02/01/20 143 CC: Name Value Range Interpretation Code Description Data [place] rce(s) Supporting Document(s) ID Date Data Source [id number] 12/20/2019 10:21:00 AM EDT [facility] Patient Name: PIPER LICEA DO B: 1970 Sex: M Pt Unit #: [id number] Location:[facility] Provider: Visit Date/Time: 12/20/19 Primary Insurance: [employer] Secondary Insurance: Self Pay Intake Vital Signs [...] mole. But has changed and came back. 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 On top of this is a triple nodule raised darker brown nevi. Non-tender. Assessment Plan Assessment Plan (1) Suspicious nevus: Status: Acute Comment: Referred to derm for biopsy. Code(s): D22.9 - Melanocytic nevi, unspecified SNOMED Code(s): 516179631 Category: Medical Orders: Referrals: Dermatology Referral Orders Other Medications: New: fluticasone propionate 50 mcg/actuation (Flonase Allergy Relief) administer into each nostril 2 sprays intranasal QDAY 1 unit 5RF Electronically Signed By: <Electronically signed by Kelli Mcmanus NP> Date/Time Signed: 12/20/19 1051 Name Value Range Interpretation Code Description Data [place] rce(s) Supporting Document(s) ID Date Data Source [id number] 10/19/2019 09:57:00 AM EDT [facility] Patient Name: PIPER LICEA DO B: 1970 Sex: M Pt Unit #: [id number] Location:[facility] Provider: Visit Date/Time: 10/19/19 Primary Insurance: [facility] Secondary Insurance: Self Pay Intake Vital Signs [...] Pt would like to be referred to garment supervisor for testing. Pt requests a sleep study. He wakes up a lot during the night , tired throughout the day and last night he felt like he could not breathe. Tire Bladder Maker Required: No Accompanied by: Self / Same [...] Screening Screening Have you traveled outside of [facility] or [facility] in the last 14 days.: No Has patient experienced coronavirus symptoms: No [facility] Social History (Updated 07/12/19 @ 09:52 by [...] Other allergic rhinitis Plan - Kelli Mcmanus NP: I will refer to garment supervisor. He is taking 2 allergy medications already at this point. Testing may be helpful, possible serum injections. (2) Umbilical hernia: Status: Acute Comment: Referral to gen surg. Code(s): K42.9 - Umbilical hernia without obstruction or gangrene SNOMED Code(s): 376147937 Category: Medical Orders: Referrals: General Surgery Referral (3) Sleep apnea: Status: Acute Comment: Referred for sleep study and possible CPAP fitting Code(s): G47.30 - Sleep apnea, unspecified SNOMED Code(s): 68063144 Category: Medical Electronically Signed By: <Electronically signed by Kelli Mcmanus NP> Date/Time Signed: 10/19/19 1037 Name Value Range Interpretation Code Description Data [place] rce(s) Supporting Document(s) ID Date Data Source [id number] 07/31/2019 11:34:00 AM EST [facility] Method of Collection:: Voided Name Value Range Interpretation Code Description Data [place] rce(s) Supporting Document(s) Color of Urine [facility] Appearance of Urine CLEAR [facility] pH of Urine by Test strip 8.0 5-8 [facility] Specific gravity of Urine by Refractometry 1.022 1.005-1.030 [facility] Leukocyte esterase [Presence] in Urine by Test strip NEGAT JALEN [facility] Nitrite [Presence] in Urine by Test strip NEGATIVE [facility] Protein [Presence] in Urine by Test strip NEGATIVE [facility] Glucose [Mass/volume] in Urine by Automated test strip NEGATIVE NEG ATIVE [facility] Ketones [Presence] in Urine by Test strip NEGATIVE [facility] Urobilinogen [Presence] in Urine 0.2-1 EU/dl [facility] Bilirubin.total [Presence] in Urine by Automated test strip NEGATIVE [facility] Erythrocytes [#/volume] in Urine by Test strip NEGATIVE NEGATIVE [facility] URINE MICROSCOPIC ADDED NO [facility] ID Date Data Source [id number] 07/31/2019 11:39:00 AM EST [facility] Method of Collection:: Voided Name Value Range Interpretation Code Description Data [place] rce(s) Supporting Document(s) Leukocytes [#/volume] in Blood by Automated count 7.7 10*3/uL 4.45-10 .71 N [facility] Erythrocytes [#/volume] in Blood by Automated count 5.92 10*6/uL 4.3- 6.1 N [facility] Hemoglobin [Moles/volume] in Blood 17.9 g/dL 13-18 N [facility] Hematocrit [Volume Fraction] of Blood by Automated count 51.5 % 4 2-52 N [facility] Erythrocyte mean corpuscular volume [Ent itic volume] in Cord blood by Automated count 87.0 fL 80-96 N [facility] ital Erythrocyte mean corpuscular hemoglobin [Entitic mass] by Automated count 30.2 pg 27-31 [facility] Erythrocyte mean corpuscular hemoglobin concentration [Mass/volume] in Cord blood 34.8 g/dL 33-37 N [facility] ital Erythrocyte distribution width [Entitic volume] by Automated count 13 % 11-15 N [facility] Platelets [#/volume] in Blood by Automated count 239 10*3/uL 130-472 N [facility] Platelet mean volume [Entitic volume] in Blood 9.9 fL 9.1-13.1 N [facility] Neutrophils/100 leukocytes in Blood by Automated count 58.8 % 41- 77 N [facility] Neutrophils [#/volume] in Blood by Automated count 4.5 U 1.7-7.6 N [facility] Lymphocytes/100 leukocytes in Blood by Automated count 32.6 % 14- 46 N [facility] Lymphocytes [#/volume] in Blood by Automated count 2.5 U 0.6-4.6 N [facility] Monocytes/100 leukocytes in Blood by Automated count 7.8 % 4-12 N [facility] Monocytes [#/volume] in Blood by Automated count 0.6 U 0.2-1.2 N [facility] Eosinophils/100 leukocytes in Blood by Automated count 0.6 % 0-7 N [facility] Eosinophils [#/volume] in Blood by Automated count 0.1 U 0.0-0.5 N [facility] Basophils/100 leukocytes in Blood by Automated count 0.1 % 0.4-1.3 Below low normal [facility] Basophils [#/volume] in Blood by Automated count 0.0 U 0.0-0.2 N [facility] NUCLEATED RED BLOOD CELL 0 % [facility] NUCLEATED RED BLOOD CELL# 0 U [facility] Immature granulocytes [Presence] in Blood by Automated count 0-2 N [facility] Immature granulocytes [#/volume] in Blood by Automated count 0.0 U 0-0.1 N [facility] [facility] Differential [facility] - Blood NO [facility] ID Date Data Source [id number] 07/31/2019 12:13:00 PM EST [facility] Method of Collection:: Voided Name Value Range Interpretation Code Description Data Geneva rce(s) Supporting Document(s) Urea nitrogen [Mass/volume] in Serum or Plasma 17 mg/dL 9-23 [facility] Sodium [Moles/volume] in Serum or Plasma 138 mmol/L 132-146 [facility] Potassium [Moles/volume] in Serum or Plasma 4.5 mmol/L 3.5-5.5 [facility] Chloride [Moles/volume] in Serum or Plasma 105 mmol/L 99-109 [facility] Carbon dioxide, total [Moles/volume] in Serum or Plasma 28 mmol/L 20 -31 N [facility] Anion gap in Serum or Plasma 10 mmol/L 8-16 [facility] Glucose [Mass/volume] in Serum or Plasma 97 mg/dL 74-106 N [facility] Creatinine 0.9 mg/dL 0.5-1.1 [facility] Glomerular filtration rate/1.73 sq M.pre dicted [Volume Rate/Area] in Serum or Plasma Greater Than 60 ABOVE 60 [facility] Alanine aminotransferase [Enzymatic acti vity/volume] in Serum or Plasma by With P-5'-P 44 U/L 10-49 [facility] ital Aspartate aminotransferase [Enzymatic ac tivity/volume] in Serum or Plasma by With P-5'-P 20 U/L 0-33 [facility] Alkaline phosphatase [Enzymatic activity/volume] in Serum or Plasma 63 U/L 45-129 N [facility] Calcium [Mass/volume] in Serum or Plasma 9.1 mg/dL 8.5-10.1 N [facility] Bilirubin.total [Mass/volume] in Serum or Plasma 1.0 mg/dL 0.3-1.2 N [facility] Albumin [Mass/volume] in Serum or Plasma by Bromocresol purple (BCP) dye binding method 4.1 g/dL 3.2-4.8 N [facility] ital Protein [Mass/volume] in Serum or Plasma 7.1 g/dL 5.7-8.2 N [facility] ID Date Data Source [id number] 07/31/2019 12:13:00 PM [facility] Method of Collection:: Voided Name Value Range Interpretation Code Description Data Geneva rce(s) Supporting Document(s) Triglycerides 174 mg/dL 0-150 Above high normal [facility] Cholesterol 212 mg/dL 120-200 Above high normal [facility] HDL Cholesterol 44 mg/dL [facility] HDL Less than 40 mg/dL: Major risk for CHDHDL Greater than 59 mg/dL: Low risk for CHD LDL Cholesterol, Calc 134 mg/dL 0-100 Above high normal [facility] ID Date Data Source [id number] 07/12/2019 09:52:00 AM [facility] Patient Name: PIPER LICEA DO B: 1970 Sex: M Pt Unit #: [id number] Location:[facility] Provider: Visit Date/Time: 07/12/19 Primary Insurance: [employer] Secondary Insurance: Self Pay Intake Vital Signs [...] Declines today. Pretest education received and acknowledged [facility] Social History (Updated 07/12/19 @ 09:52 by [...] Safety: Reports Bathroom: Grab bars, Lighting: Adequate, [place]: No throw rugs and Stairs: Handrail available [...] abno rmal findings Plan - Kelli Mcmanus NP: Healthy 48 year old male. Health maintenance [...] swelling, mass and lump, neck SNOMED Code(s): 406824160 Category: Medical Orders Other Medications: New: loratadine (Allergy Relief (loratadine)) 10 mg PO Q24H 90 days 90 tabs 3RF Changed: From: montelukast 10 mg PO QPM 90 tabs 3RF To: montelukast 10 mg PO QPM 90 days 90 tabs 3RF Instructions: DASH Eating Plan (GEN) Hypertension (GEN) Electronically Signed By: <Electronically signed by Kelli Mcmanus NP> Date/Time Signed: 07/12/19 1023 Name Value Range Interpretation Code Description Data Geneva rce(s) Supporting Document(s) ID Date Data Source [id number] 05/29/2019 01:24:00 PM EST [facility] 1 OrderSheet [facility] Emergency Department [address] [place] [address] Phone #: ext- [phone] 05/29/2019 13:00 Patient: [...] rce(s) Supporting Document(s) ID Date Data Source [id number] 05/29/2019 01:24:00 PM [facility] 1 Medication Reconciliation Report [facility] Emergency Department [address] [place] [address] Phone #: [phone] 05/29/2019 13:00 Patient: PIPER LICEA Sex: M [...] 15 tablet. Refills: 0. Substitution permitted.Pharmacy - [facility], [facility] - [address] [place] [address]. FaxNumber: . -- Antonia Frazier M.D. Name Value Range Interpretation Code Description Data Geneva rce(s) Supporting Document(s) ID Date Data Source [id number] 05/29/2019 01:24:00 PM [facility] 1 Medication Administration Record [facility] Emergency Department [address] [place] [address] Phone #: ext- [phone] 05/29/2019 13:00 Patient: [...] rce(s) Supporting Document(s) ID Date Data Source [id number] 05/29/2019 01:24:00 PM EST [facility] 1 General Instructions [facility] Emergency Department [address] [place] [address] Phone #: ext- [phone] 05/29/2019 13:00 Patient: PIPER LICEA Sex: M [...] 15 tablet. Refills: 0. Substitution permitted.Pharmacy - [facility] - [address] [place] [address]. FaxNumber: .Follow-up:Follow up with your healthcare provider [...] to mechanical stress, such asworking at a [employer] terminal for long periods or work that requires repetitive motions of the arms orhands. It can also be caused by emotional stress, such as problems on the job or in your personal 2 General Instructions [facility] Emergency Department [address] [place] [address] Phone #: ext- [phone] 05/29/2019 13:00 Patient: [...] any poor work habits. You may use [id number] pain medicine to control pain, unless another [...] if you don'trespond to home treatment alone.Call [phone] if you have: 3 General Instructions [facility] Emergency Department [address] [place] [address] Phone #: ext- [phone] 05/29/2019 13:00 Patient: [...] your pain worsens, regardless of its location [id number] [employer]. [address] [place] [address]. All rights reserved. This information is not [...] alternate ice and heat. You may use ftwl-vxg-rvuoife pain medicine to control pain, unless another [...] and run on the 4 General Instructions [facility] Emergency Department [address] [place] [address] Phone #: ext- [phone] 05/29/2019 13:00 Patient: PIPER LICEA Sex: M : 1970 Age: 48y injured leg without pain.Follow-up careFollow up with your healthcare provider, or as advised.When to seek medical adviceCall your healthcare provider right away if any of these occur: The toes of the injured leg become swollen, cold, blue, numb, or tingly Pain or swelling increases [phone] [employer]. [address] [place] [address]. All rights reserved. This information is not [...] rce(s) Supporting Document(s) ID Date Data Source [id number] 05/29/2019 01:24:00 PM EST [facility] 1 Clinical Report - Nurses [facility] Emergency Department [address] [place] [address] Phone #: ext- [phone] 05/29/2019 13:00 Patient: PIPER LICEA Sex: M : 1970 Age: 48yTRIAGEHistorian: patient.Triage time: 13:00 05/29/2019. Acuity: LEVEL 4.Chief Complaint: LEFT LOWER EXTREMITY PAIN.Alert. No acute distress.( pt c/o left hamstring cramp for past 3-4 days, some numbness feeling to back of knee. denies injury.).Treatment HEDGE TRIMMER:Took Tylenol. (last night).SEPSIS SCREEN: NEGATIVE. Negative (no infection suspected/documented). --13:04 05/29/19, R.N.13:00 05/29/19. BP: 120/85. MAP: 96. HR: 63. RR: 16. O2 saturation: 98%. Temp: 98.4 F (oral). Painlevel now: 02/07. --13:05/29/19August, R.N.Weight: 113.3 kg stated. Height/Length: 70 inches Per Patient. BMI: 35.8. --13:05/29/19August,R.N.MedicationsCeleXA Oral. --13:05/29/19August, R.N. Xanax Oral. --13:05/29/19August, R.N. Depakote Oral. --13:05/29/19August, R.N. Gabapentin Oral. --13:05/29/19August, R.N. Meloxicam Oral. --13:05/29/19August, R.N.AllergiesNo Known Drug Allergy. --13:02 05/29/19August, R.N.PROBLEMS:Arthritis.Anxiety Reaction.Depression. --13:02 05/29/19August, R.N.ADDITIONAL SURGERIES:Heart ablation. --13:02 05/29/19August, R.N.HistorySOCIAL HX: Never smoker. No alcohol use or drug use. He was offered HIV testing but declined. He 2 Clinical Report - Nurses [facility] Emergency Department [address] [place] [address] Phone #: ext- [phone] 05/29/2019 13:00 Patient: PIPER LICEA [facility]#: [id number] Sex: M : 1970 Age: 48y has [...] skin integrity risk identified. --13:04 05/29/19 Rhoda Diaz, R.N. Interventions To treatment room. --13:05/29/19 Rhoda Diaz, RWandyN.PHYSICAL ASSESSMENTAmbulatory to room.GENERAL / NEURO / PSYCH: [...] evaluation- EDphysician notified. --13:04 05/29/19 Joe, August, R.N. Patient gowned. --13:04 05/29/19 Mirellaaugust, R.N. Extremity elevated. Patient gowned. Reassurance given. Call light placed in reach. Side rails up x 2. Bed placed in lowest position. Brakes of bed on. Patient ready for evaluation- ED physician notified. 3 Clinical Report - Nurses [facility] Emergency Department [address] [place] [address] Phone #: ext- [phone] 05/29/2019 13:00 Patient: [...] Patient verbalized understanding. Written instructions provided in Maori. The patient was discharged by the physician. He was discharged home and accompanied by spouse. He left ambulatory and via private vehicle. Spouse driving. --16:16 05/29/19 Scot Mena RN 16:15 05/29/19. BP: 148/89. MAP: 108. HR: 55. RR: 16. O2 saturation: 98%. Pain level now: 10/07. --16:16 05/29/19 Scot Mena RN.Locked/Released at 05/29/2019 16:16 by Scot Mena RN Name Value Range Interpretation Code Description Data Geneva rce(s) Supporting Document(s) ID Date Data Source [id number] 05/29/2019 01:24:00 PM EST [facility] 1 Clinical Report - Physicians/Mid Levels [facility] Emergency Department [address] [place] [address] Phone #: ext- [phone] 05/29/2019 13:00 Patient: [...] and is still present (48 year old [facility] crampy pain past 3 days. not [...] Oral. 2 Clinical Report - Physicians/Mid Levels [facility] Emergency Department [address] [place] [address] Phone #: ext- [phone] 05/29/2019 13:00 Patient: [...] 6.30) 3 Clinical Report - Physicians/Mid Levels [facility] Emergency Department [address] [place] [address] Phone #: ext- [phone] 05/29/2019 13:00 Patient: [...] PROCEDURES 4 Clinical Report - Physicians/Mid Levels [facility] Emergency Department [address] [place] [address] Phone #: ext- [phone] 05/29/2019 13:00 [id number] Sex: M : 1970 Age: 48y Course [...] visit. Do not drive or operate dangerous [employer]. CONTROLLED SUBSTANCE WARNINGS. GENERAL WARNINGS: Return or contact your physician immediately if your condition worsens or changes unexpectedly, if not improving as expected, or if other problems arise. Prescription Medications: cyclobenzaprine tablet 10 mg tablet Administer 1 tablet three times a day as needed for pain for 5 days -- Dispense 15 tablet. Refills: 0. Substitution permitted. Pharmacy - [facility] - [address] [place] [address]. . Follow-up: Follow up with your healthcare provider in three days if not better. Call for an appointment. Reason for referral: evaluation and treatment. Summary of care provided to patient, family and follow-up provider via paper. 5 Clinical Report - Physicians/Mid Levels [facility] Emergency De partment [address] [place] [address] Phone #: [phone]- [phone] 05/29/2019 13:00 Patient: PIPER LICEA Sex: M : 1970 Age: 48y Understanding of the discharge instructions verbalized by patient and family.(Electronically signed by Antonia Frazier M.D. 05/30/2019 06:46) Name Value Range Interpretation Code Description Data Geneva rce(s) Supporting Document(s) ID Date Data Source [id number] 05/29/2019 02:17:00 PM [facility] Name Value Range Interpretation Code Description Data Geneva rce(s) Supporting Document(s) CBC W/AUTOMATED DIFF [facility] COMPLETE BLOOD COUNT Leukocytes [#/volume] in Blood by Automated count 8.3 10^3/uL 4.2 - 1 1.0 [facility] Erythrocytes [#/volume] in Blood by Automated count 5.66 10^6/uL 4. 50 - 6.30 [facility] Hemoglobin [Mass/volume] in Blood 16.8 g/dL 14.0 - 16.0 H [facility] Hematocrit [Volume Fraction] of Blood by Automated count 48.9 % 4 1.0 - 51.0 [facility] Erythrocyte mean corpuscular volume [Entitic volume] by Auto mated count 86.4 fL 80.0 - 94.0 [facility] Erythrocyte mean corpuscular hemoglobin [Entitic mass] by Automated count 29.7 pg 27.0 - 34.0 [facility] Erythrocyte mean corpuscular hemoglobin concentration [Mass/volume] by Automated count 34.4 g/dL 31.0 - 36.0 [facility] Erythrocyte distribution width [Ratio] by Automated count 12.9 % 11.5 - 14.8 [facility] Platelets [#/volume] in Blood by Automated count 233 10^3/uL 150 - 45 0 [facility] Platelet mean volume [Entitic volume] in Blood by Automated count 9.6 fL 7.4 - 10.4 [facility] Neutrophils/100 leukocytes in Blood by Automated count 54.3 % 37. 0 - 80.0 [facility] Lymphocytes/100 leukocytes in Blood by Manual count 36.1 % 25.0 - 40.0 [facility] Monocytes/100 leukocytes in Blood by Automated count 8.0 % 3.0 - 8.0 [facility] Eosinophils/100 leukocytes in Blood by Automated count 0.8 % 0.0 - 7.0 [facility] Basophils/100 leukocytes in Blood by Automated count 0.4 % 0.0 - 2.0 [facility] %IG 0.4 % 0.0 - 0.0 [facility] %[facility] 0.0 % 0.0 - 0.0 [facility] al Neutrophils [#/volume] in Blood by Automated count 4.51 10^3/uL 2.00 - 6.90 [facility] Lymphocytes [#/volume] in Blood by Automated count 2.99 10^3/uL 0.60 - 3.40 [facility] Monocytes [#/volume] in Blood by Automated count 0.66 10^3/uL 0.00 - 0.90 [facility] Eosinophils [#/volume] in Blood by Automated count 0.07 10^3/uL 0.00 - 0.70 [facility] Basophils [#/volume] in Blood by Automated count 0.03 10^3/uL 0.00 - 0.20 [facility] #IG 0.03 10^3/uL 0.00 - 0.10 [facility] ospital #NRBC 0.00 10^3/uL 0.00 - 0.00 [facility] MANUAL DIFF NOT INDICATED [facility] RBC MORPH NOT INDICATED [facility] spital ID Date Data Source [id number] 05/29/2019 02:14:00 PM EST [facility] Name Value Range Interpretation Code Description Data Geneva rce(s) Supporting Document(s) COMPREHENSIVE METABOLIC PANEL [facility] COMPREHENSIVE METABOLIC PANEL Sodium [Moles/volume] in Serum or Plasma 135 mEq/L 134 - 153 [facility] Potassium [Moles/volume] in Serum or Plasma 4.4 mEq/L 3.6 - 5.0 [facility] Chloride [Moles/volume] in Serum or Plasma 100 mEq/L 98 - 107 [facility] Carbon dioxide, total [Moles/volume] in Serum or Plasma 24 MEQ/L 22 - 30 [facility] Glucose [Mass/volume] in Serum or Plasma 102 MG/DL 65 - 110 [facility] BUN 19 MG/DL 7 - 21 [facility] Creatinine [Mass/volume] in Serum or Plasma 0.7 MG/DL 0.7 - 1.5 [facility] BUN/CREAT 27 8 - 27 [facility] Protein [Mass/volume] in Serum or Plasma 6.6 G/DL 6.3 - 8.2 [facility] Albumin [Mass/volume] in Serum or Plasma 4.5 G/DL 3.9 - 5.0 [facility] Globulin [Mass/volume] in Serum by calculation 2.1 GM/DL 2.4 - 3.2 L [facility] A/G RATIO 2.1 0.8 - 2.0 H [facility] Calcium [Mass/volume] in Serum or Plasma 9.6 MG/DL 8.4 - 10.2 [facility] Bilirubin.total [Mass/volume] in Serum or Plasma 0.7 MG/DL 0.2 - 1.3 [facility] Alkaline phosphatase [Enzymatic activity/volume] in Serum or Plasma 53 U/L 38 - 126 [facility] Aspartate aminotransferase [Enzymatic activity/volume] in Serum or Plasma 30 U/L 5 - 40 [facility] Alanine aminotransferase [Enzymatic activity/volume] in Seru m or Plasma 46 U/L 7 - 56 [facility] Anion gap 3 in Serum or Plasma 11.0 mmol/L 8.0 - 16.0 [facility] AGE 48 yrs [facility] al NON-AA GFR >60 mL/min [facility] ital AFR AMER GFR >60 mL/min [facility] spital Male GFR In terprentation 20-49 [...] >32 mL/min Normal ID Date Data Source [id number] 05/29/2019 02:05:00 PM EST [facility] Name Value Range Interpretation Code Description Data Geneva rce(s) Supporting Document(s) Magnesium [Mass/volume] in Serum or Plasma 2.1 MG/DL 1.7 - 2.2 [facility] Procedure Social History Code Duration Value Status Description Data Source(s ) 05/07/2020 10:59:56 AM EST Former smoker completed Former smoker [facility] Smoking 05/07/2020 10:59:00 AM EST Former smoker completed Former smoker [facility] Smoking 02/05/2020 10:21:00 PM EDT Current every day smoker co mpleted Current every day smoker [facility] Smoking 02/05/2020 10:21:00 PM EDT Current every day smoker co mpleted Current every day smoker [facility] Smoking 02/05/2020 10:21:00 PM EDT Current every day smoker co mpleted Current every day smoker [facility] Smoking 02/05/2020 10:21:00 PM EDT Current every day smoker co mpleted Current every day smoker [facility] 02/05/2020 09:21:10 PM EDT Yes completed Yes [facility] 02/05/2020 09:21:10 PM EDT Yes completed Yes [facility] 02/05/2020 09:21:10 PM EDT Current every day smoker co mpleted Current every day smoker [facility] 02/05/2020 09:21:10 PM EDT Yes completed Yes [facility] 02/05/2020 09:21:10 PM EDT Yes completed Yes [facility] 02/05/2020 09:21:10 PM EDT Current every day smoker co mpleted Current every day smoker [facility] 02/05/2020 09:21:10 PM EDT Yes completed Yes [facility] 02/05/2020 09:21:10 PM EDT Yes completed Yes [facility] 02/05/2020 09:21:10 PM EDT Yes completed Yes [facility] 02/05/2020 09:21:10 PM EDT Yes completed Yes [facility] 02/05/2020 09:21:10 PM EDT Current every day smoker co mpleted Current every day smoker [facility] 02/05/2020 09:21:10 PM EDT Yes completed Yes [facility] 02/05/2020 09:21:10 PM EDT Yes completed Yes [facility] 02/05/2020 09:21:10 PM EDT Current every day smoker co mpleted Current every day smoker [facility] 02/05/2020 09:21:10 PM EDT Yes completed Yes [facility] 02/05/2020 09:21:10 PM EDT Yes completed Yes [facility] 02/05/2020 09:21:10 PM EDT Current every day smoker co mpleted Current every day smoker [facility] 02/05/2020 09:21:10 PM EDT Yes completed Yes [facility] 02/05/2020 09:21:10 PM EDT Yes completed Yes [facility] 02/05/2020 09:21:10 PM EDT Current every day smoker co mpleted Current every day smoker [facility] Smoking 02/05/2020 09:21:00 PM EDT Current every day smoker co mpleted Current every day smoker [facility] Smoking 02/05/2020 09:21:00 PM EDT Current every day smoker co mpleted Current every day smoker [facility] Smoking 11/09/2019 12:00:00 AM EDT Patient has never smoked co mpleted Patient has never smoked [facility] ([facility] ) 07/12/2019 09:52:02 AM EST Former smoker completed Former smoker [facility] 07/12/2019 09:52:02 AM EST Former smoker completed Former smoker [facility] 07/12/2019 09:52:02 AM EST Former smoker completed Former smoker [facility] 07/12/2019 09:52:02 AM EST Former smoker completed Former smoker [facility] Smoking 07/12/2019 09:52:00 AM EST Former smoker completed Former smoker [facility] Smoking 07/12/2019 09:52:00 AM EST Former smoker completed Former smoker [facility] Smoking 07/12/2019 08:52:00 AM EST Former smoker completed Former smoker [facility] Smoking 07/12/2019 08:52:00 AM EST Former smoker completed Former smoker [facility] Vital Signs ID Date Data Source UNK Name Value Range Interpretation Code Description Data Source(s) Body surface area Derived from formula 2.30 m2 2.30 m2 [facility] ([facility]) Body mass index (BMI) [Ratio] 36.2 kg/m2 36.2 k g/m2 [facility] ([facility]) Body height 70 [in_i] 70 [in_i] [facility] ([facility]) 5'10" Body weight 114.421 kg 114.421 kg [facility] ([facility]) Body weight 252.25 [lb_av] 252.25 [lb_av] [facility] ([facility]) Oxygen saturation in Arterial blood by Pulse oximetry 98 % 98 % [facility] ([facility]) Respiratory rate 18 /min 18 /min [facility] ( [facility]) Body temperature 99.3 [degF] 99.3 [degF] [facility] ([facility]) Oral Heart rate 62 /min 62 /min [facility] ([facility]) Diastolic blood pressure--sitting 86 mm[Hg] 86 mm[Hg] [facility]) Systolic blood pressure--sitting 140 mm[Hg] 140 mm[Hg] [facility] ([facility]) Body surface area 2.32 m2 2.32 m2 [facility] ([facility]) Body surface area Derived from formula 2.32 m2 2.32 m2 [facility]) Body mass index (BMI) [Ratio] 34.9 kg/m2 34.9 k g/m2 [facility]) Body height 71 [in_i] 71 [in_i] [facility] ([facility]) Body weight 113.400 kg 113.400 kg [facility] ([facility]) Body weight 250.00 [lb_av] 250.00 [lb_av] [facility] ([facility]) Respiratory rate 17 /min 17 /min [facility] ( [facility]) Body temperature 97.3 [degF] 97.3 [degF] [facility] ([facility]) Heart rate 70 /min 70 /min [facility] ([facility]) Diastolic blood pressure 92 mm[Hg] 92 mm[Hg] [facility] ([facility]) Systolic blood pressure 141 mm[Hg] 141 mm[Hg] M [facility] ([facility]) Body mass index (BMI) [Ratio] 44.3 [...] [facility] ([facility] 5'10" Body weight 309.00 [lb_av] 309.00 [lb_av] [facility] ([facility]) ID Date Data Source [id number] 02/14/2020 11:42:12 AM EDT [facility] Name Value Range Interpretation Code Description Data Source(s) WEIGHT RECORDED 249.90 pounds 249.90 pounds [facility] Date Data Source [id number] 02/09/2020 01:23:31 PM EDT [facility] Name Value Range Interpretation Code Description Data Source(s) WEIGHT RECORDED 250.00 pounds 250.00 pounds [facility] Height 70 [facility]ches [facility]
--- NOTE | 2020-06-28 16:04 | REP ---
INDICATION: gen abd pain. COMPARISON: Comparison CT study March 27, 2015.. TECHNIQUE: Helical scanning was acquired and 4 mm axial images are re-formatted. Coronal and sagittal MPR images were generated and reviewed. The contrast enhancement dose is 100 mL of intravenous Isovue 370. 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 The lung bases are clear on axial CT images. No pleural effusion or ascites is seen. The liver and the spleen are homogeneous in texture. Normal in size. Normal adrenal glands are observed bilaterally. No abnormality is noted in the gallbladder or the pancreas. The kidneys enhance symmetrically and are morphologically intact. There is minimal vascular calcification in a normal caliber aorta. Small and large intestinal bowel loops are normal in the upper abdomen. Pelvic CT images demonstrate a umbilical hernia trans Reynolds a loop of unobstructed small intestine into the hernia sac through a abdominal wall defect which measures 2.3 cm r cranial to caudal by 2.6 cm right to left. No other abdominal wall defect is seen. There is left colonic diverticulosis. In the sigmoid colon there is a segment of mural thickening and pericolonic fat streaking consistent with acute diverticulitis. This is just above the dome of the bladder and just to the left of midline. No abscess or free air is seen. The appendix is not visualized with confidence but there is no CT evidence to suggest appendicitis. Prostate, seminal vesicles and urinary bladder are unremarkable. IMPRESSION: Findings consistent with mild acute diverticulitis sigmoid colon just to the left of midline in the pelvis. No abscess or free air. Umbilical hernia containing a unobstructed loop of small bowel. No other acute abnormality. <Electronically signed by Eric Mendoza > 06/28/20 [id number]
[2020-06-28 16:15] VITALS: BP 155/80
[2020-06-28] MEDS ORDERED: AUGM875T28 PO (16:24)
[2020-06-28] MEDS ORDERED: AUGMENTIN 875 MG TAB PO ONE (16:30)
== END 2020-06-28 16:42 | disposition home or self-care (01) ==
LOC: M ED 14:06
DX: R42 Dizziness and giddiness (principal); K57.92 Diverticulitis of intestine, part unspecified, without perforation or abscess without bleeding; Z53.9 Procedure and treatment not carried out, unspecified reason; I45.19 Other right bundle-branch block; I10 Essential (primary) hypertension; F20.9 Schizophrenia, unspecified; Z79.899 Other long term (current) drug therapy; Z88.0 Allergy status to penicillin; Z88.8 Allergy status to other drugs, medicaments and biological substances
CPT/HCPCS: 36415; 71046; 74177; 80048; 80076; 82550; 82553; 83690; 84439; 84443; 84484; 85025; 93005; 93041; 94760; 99281; 99285; Q9967

== ENCOUNTER 2020-07-01 07:29 | Emergency (ER) | payer MEDICARE, OTHER ==
[~2020-07-01] VITALS: Ht 177.8 cm; Wt 177.3 kg
[~2020-07-01 07:29] MED LIST changes: +AUGM875T28 PO; -LISI40TA PO; +LISI40TA4 PO
--- OUTSIDE RECORDS SUMMARY | 2020-07-01 07:40 | CCD | Continuity of Care Document ---
Author Author [facility] Address [address] [place] [address] Phone Support Name Relationship Address Phone Kelli Mcmanus PRS [address] [place] [address] Ina Geronimo PRS Unknown Unavailable Naveed Hannon PRS [address] [place] [address] Skip Rutherford PRS [address] [place] [address] Hospital Lab, [facility] [address] [place] [address] Marin Masters PRS [address] [place] [address] Allergies, Adverse Reactions, Alerts Allergen Type Severity Reaction Last Updated Verified Status haloperidol Allergy Unkn own Other, not listed June 30, 2020 12:46pm Yes Active dust mites Allergy Severe builds up drainage [...] November 13, 2019 2:46pm Citalopram Discontinued PO 30 December 06, 2018 8:03am January 11, 2019 [...] IM every 2 weeks 1.5 14 February 16, 2 019 7:59am March 16, 2019 2:21pm Inject 1.5 ml into muscle Q2 weeks. H[facility]PITALITY AMBASSADOR: [id number] Ofloxacin Discontinued 1 DROPS BOTH EYES Four [...] 2:48pm Citalopram Discontinued 40 MG PO daily 30 November 13, 2019 2:47pm January 22, 2020 7:50am Fluticasone Propionate (Flonase Allergy Relief) 50 mcg/actuation spray,suspension Discontinued 2 SPRAY DONOVAN daily 1 December 20, 2019 9:26am February 05, 2020 8:22pm administer into each nostril Afluria Qd (3yr up)(PF) (flu vac [id number] 36mos up(PF)) Discontinued 60 MCG IM 1 [...] 11:17am Prazosin Discontinued 1 MG PO daily 30 March 13, 2020 9:50am March 18, 2020 2:25pm Sertraline Discontinued 50 MG PO Q24H March 13, 2020 9:50am April 04, 2020 10:24am Sertraline Discontinued 100 MG PO Q24H April 04, 2020 10:24am May 07, 2020 11:21am Testosterone Cypionate Discontinued 200 MG IM every 2 weeks 1 April 04, 2020 10:27am April 11, 2020 9:46am Inject 1m l into muscle Q2 week HOSPITALITY AMBASSADOR:[id number] Olanzapine Discontinued 10 MG PO Every Evening 30 May 07, 2020 11:17am June 04, 2020 1:21pm Sertraline Active 50 MG PO Q24H May 07, 2020 11:19am Take with 100mg tablet. Sertraline Active 100 MG PO Q24H May 07, 2020 11:19am Take with 50mg tablet. Testosterone Cypionate Discontinued 200 MG IM every 2 weeks 1 May 07, 2020 1:04pm June 04, 2020 2:26pm Inject 1ml into muscle Q2 week HOSPITALITY AMBASSADOR:[id number] Olanzapine Active 20 MG PO Every Evening June 04, 2020 1:20pm Clonazepam Active 0.5 MG PO 2 Times Per Day June 04, 2020 2:26pm Testosterone Cypionate Active 200 MG IM every 2 weeks 1 June 04, 2020 2 :26pm Inject 1ml into muscle Q2 we ek HOSPITALITY AMBASSADOR:[id number] Amoxicillin-Pot Clavulanate Discontinued 1 TAB PO 2 Times Per Day 20 June 21, 2020 9:36am June 30, 2020 4:58pm Diltiazem Hcl Discontinued 240 MG PO Once Per Day January 01, 2014 9:47am July 08, 2018 8:39am Gabapentin Discontinued 400 MG PO Four Times a Day January 01, 2014 9:47am November 13, 2019 2:46pm Bupropion Hcl (Smoking Deter) Discontinued 150 MG PO 2 Times Per Day January 01, 2014 9:4 7am July 08, 2018 8:39am Metronidazole (Flagyl) 500 mg tablet Activ e 500 MG PO Three times a day June 30, 2020 4:59pm Levofloxacin Active 750 MG PO Once Per Day June 30, 2020 4:59pm Testosterone Cypionate (Depo-Testosterone) 200 mg/mL o il Discontinued 200 MG IM every 2 weeks March 14, 2012 3:36pm July 12:13pm Haloperidol Discontinued 5 MG PO Three times a day March 14, 2012 3:37pm December 20, 2012 8:55am Divalproex Sodium (Depakote) Discontinued 500 MG PO 2 Times Per Day March 14, 2012 3:37pm January 01, 2014 9:55am Benztropine Discontinued 1 MG PO 2 Times Per Day March 14, 2012 3:38pm December 20, 2012 [...] d 10 MG PO Once Per Day December 20, 2012 8:5 6am January 01, [...] Day 90 90 July 08, 2018 8:51am September 28, [...] 1ml i nto muscle every 2 weeks. HOSPITALITY AMBASSADOR: [id number] Syringe (Disposable) (Bd Luer-Yanira Tip Co ntrol [...] Inject 1 .5ml into muscle Q2 weeks. HOSPITALITY AMBASSADOR:[id number] Syringe (Disposable) (Bd Luer-Yanira Tip Co ntrol [...] Inject 1. 5ml into muscle Q2 weeks. HOSPITALITY AMBASSADOR:[id number] Syringe (Disposable) (Bd Luer-Yanira Tip Co ntrol Syring) 10 mL syringe Discontinued 1 EACH MC every 2 weeks 06 29April 28, 2019 7:29am June 012019 8:37am With 1 inch 23g needle. Testosterone Cypionate Discontinued 300 MG IM every 2 weeks 1.5 April 28 19 7:29am June 27, 2019 8:37am Inject 1.5 ml into muscle Q2 weeks. HOSPITALITY AMBASSADOR: [id number] Syringe (Disposable) (Bd Luer-Yanira Tip Co ntrol Syring) 10 mL syringe Discontinued 1 EACH MC every 2 weeks 06 29June 27, 2019 8:37am October 19, 2019 10:10am With 1 inch 23g needle. Testosterone Cypionate Discontinued 300 MG IM every 2 weeks 1.5 June 27 0 8:37am August 21, 2019 8:55am Inject 1.5ml into muscle Q2 weeks. HOSPITALITY AMBASSADOR: [id number] Testosterone Cypionate Discontinued 300 MG IM every 2 weeks 1.5 August 21, 2019 8:55am October 19, 2019 11:25am Inject 1.5ml into muscle Q2 weeks. HOSPITALITY AMBASSADOR: [id number] Testosterone Cypionate Discontinued 300 MG IM every 2 weeks 1.5 October 19, 2019 11 :24am November 29, 2019 7:35am Inject 1.5ml i nto muscle Q2 weeks. HOSPITALITY AMBASSADOR: [id number] Meloxicam Discontinued 7 .5 MG PO 2 [...] 2 weeks 1.5 November 29, 2019 7: 34aNovember 29, 2019 7:45am Inject 1.5ml i nto muscle Q2 weeks. HOSPITALITY AMBASSADOR: [id number] Testosterone Cypionate Discontinued 300 MG IM every [...] Inject 1. 5ml into muscle Q2 week HOSPITALITY AMBASSADOR:[id number] Prazosin Active 1 MG PO 2 Times Per Day 60 March 18, 2020 2:23pm Alprazolam Discontinued 0.5 MG PO daily March 18, 2020 2:24pm March 18, 2020 2:36pm HOSPITALITY AMBASSADOR: [id number] Alprazolam Discontinued 0.5 MG PO daily March 18, 2020 2:36pm April 11, 2020 9:33am HOSPITALITY AMBASSADOR: [id number] Clonazepam Discontinued 0.5 MG PO 2 Times Per Day April 11, 2020 9:33am May 07, 2020 1:11pm Syringe (Disposable) (Bd Luer-Yanira Tip Co ntrol Syring) 10 mL syringe Active 1 EACH MC every 2 weeks 1 April 11, 2020 9:46am With 1 inch 23g needle. Testosterone Cypionate Discontinued 200 MG IM every 2 weeks 1 April 11, 2020 9:46am May 07, 2020 1:05pm Inject 1ml into muscle Q2 week HOSPITALITY AMBASSADOR:[id number] Clonazepam Discontinued 0.5 MG PO 2 Times [...] Hypertension Resolved Procedures Procedure Date Performed Status CT Abd/pel w/ contrast June 30, 2020 3:52pm completed SARS Antigen (LFIA) June 21, 2020 completed February 07, [address] Abd/pel w/ contrast January 8:21pm completed Relevant Diagnostic Tests and/or Laboratory Data Laboratory Results Test Date/Time Result Interpretation Reference Range Result Comment Performing Site White Blood Count June 30, 2020 2:40p m 8.5 10e3/uL 4.45-10.71 [facility], [address] [place], [place] [id number] White Blood Count February 04 8:35pm 9.0 10e3/uL 4.45-10.71 [facility], [address] [place], [place] [id number] White Blood Count January 31 2:22pm 10.0 10e3/uL 4.45-10.71 [facility], [address] [place] [address] White Blood Count July 31, 2019 11:18am 7.7 10e3/uL 4.45-10.71 [facility], [address] [place], [place] [id number] Red Blood Count June 30, 2020 2:40pm 5.17 10e6/uL 4.3-6.1 [facility], [address] [place], [place] [id number] Red Blood Count February 05, 2020 8:35pm 5.38 10e6/uL 4.3-6.1 [facility], [address] [place], [place] [id number] Red Blood Count February 01, 2020 2:22pm 5.61 10e6/uL 4.3-6.1 [facility], [address] [place], [place] [id number] Red Blood Count July 31, 2019 11:18am 5.92 10e6/uL 4.3-6.1 [facility], [address] [place] [address] Hemoglobin June 30, 2020 2:40pm 15.9 g/dL -18 [facility], [address] [place] [address] Hemoglobin February 05, 2020 8:35pm 16.6 g/dL 13-18 [facility], [address] [place], [place] [id number] Hemoglobin February 01, 2020 2:22pm 17.4 g/dL 18 [facility], [address] [place] [address] Hemoglobin July 31, 2019 11:18am 17.9 g/dL 13-18 [facility], [address] [place] [address] 59058 Hematocrit June 30, 2020 2:40pm 45.3 % 42-52 [facility], [address] [place] [address] 03834 Hematocrit February 05, 2020 8:35pm 47.1 % 42-52 [facility], [address] [place] [address] 23662 Hematocrit February 01, 2020 2:22pm 48.4 % 42-52 [facility], [address] [place] [address] 93070 Hematocrit July 31, 2019 11:18am 51.5 % 42-52 [facility], [address] [place] [address] 33456 Mean Corpuscular Volume May 2:40pm 87.6 fl 80-96 [facility], [address] [place] [address] 00912 Mean Corpuscular Volume January 8:35pm 87.5 fl 80-96 [facility], [address] [place] [address] 58525 Mean Corpuscular Volume January 2:22pm 86.3 fl 80-96 [facility], [address] [place] [address] 59110 Mean Corpuscular Volume July 30 11:18am 87.0 fl 80-96 [facility], [address] [place] [address] 61102 Mean Corpuscular Hemoglobin June 30, 2020 2:40pm 30.8 pg 27-31 [facility], [address] [place] [address] 86309 Mean Corpuscular Hemoglobin Janemb2019 8:35pm 30.9 pg 27-31 [facility], [address] [place] [address] 61144 Mean Corpuscular Hemoglobin Septembe 2019 2:22pm 31.0 pg 27-31 [facility], [address] [place] [address] 93903 Mean Corpuscular Hemoglobin July 11:18am 30.2 pg 27-31 [facility], [address] [place] [address] 50790 Mean Corpuscular Hemoglobin Concent June 30, 2020 2:40pm 35.1 g/dl 33-37 [facility], [address] [place] [address] 10775 Mean Corpuscular Hemoglobin Concent February 05, 2020 8:35pm 35.2 g/dl [facility], [address] [place] [address] Mean Corpuscular Hemoglobin Concent February 01, 2020 2:22pm 36.0 g/dl [facility], [address] [place] [address] Mean Corpuscular Hemoglobin Concent July 31, 2019 11:18am 34.8 g/dl [address] [place] [address] LABORATORY, [address] [place] [address] Red Cell Distribution Width June 30, 2020 2:40pm 13 % 15 [facility], [address] [place] [address] 73708 Red Cell Distribution Width Septembe r 2019 8:35pm 13 % 1115 [facility], [address] [place] [address] Red Cell Distribution Width Septembe r 2019 2:22pm 13 % 15 [facility], [address] [place] [address] 62185 Red Cell Distribution Width July 11:18am 13 % [facility], [address] [place] [address] 41945 Platelet Count June 30, 2020 2:40pm 246 10e3/ul 130-472 [facility], [address] [place] [address] Platelet Count February 05, 2020 8:35pm 246 10e3/ul 130-472 [facility], [address] [place] [address] 59842 Platelet Count February 01, 2020 2:22pm 256 10e3/ul 130-472 [facility], [address] [place] [address] Platelet Count July 31, 2019 11:18am 239 10e3/ul 130-472 [facility], [address] [place] [address] 35474 Mean Platelet Volume June 30 2:40pm 9.3 fl 9.1-13.1 [facility], [address] [place] [address] Mean Platelet Volume February 05, 2020 8:35pm 9.5 fl 9.1-13.1 [facility], [address] [place] [address] Mean Platelet Volume February 01, 2020 2:22pm 9.5 fl 9.1-13.1 [facility], [address] [place] [address] Mean Platelet Volume July 31, 2019 11:18am 9.9 fl 9.1-13.1 [facility], [address] [place] [address] 41198 Neutrophils (%) (Auto) June 30, 2020 2:40pm 72.0 % 41-77 [facility], [address] [place] [address] 32755 Neutrophils (%) (Auto) January 8:35pm 55.4 % [address] [facility], [address] [place] [address] 98742 Neutrophils (%) (Auto) January 2:22pm 55.4 % 41-77 [facility], [address] [place] [address] 14447 Neutrophils (%) (Auto) July 30 11:18am 58.8 % [address] [facility], [address] [place] [address] 25296 Absolute Neutrophil June 30 2:40pm 6.1 # 1.7-7.6 [facility], [address] [place] [address] 88797 Absolute Neutrophil February 04, 020 8:35pm 5.0 # 1.7-7.6 [facility], [address] [place] [address] 53238 Absolute Neutrophil January 31 020 2:22pm 5.6 # 1.7-7.6 [facility], [address] [place] [address] 48409 Absolute Neutrophil July 31, 2019 11:18a m 4.5 # 1.7-7.6 [facility], [address] [place] [address] 47057 Lymphocytes (%) (Auto) June 30, 2020 2:40pm 19.1 % 14-46 [facility], [address] [place] [address] 90926 Lymphocytes (%) (Auto) January 8:35pm 36.9 % 14-46 [facility], [address] [place] [address] 95867 Lymphocytes (%) (Auto) January 2:22pm 35.2 % 14-46 [facility], [address] [place] [address] 50569 Lymphocytes (%) (Auto) July 30 11:18am 32.6 % 14-46 [facility], [address] [place] [address] 70194 Lymphocytes # (Auto) June 30, 021 2:40pm 1.6 # 0.6-4.6 [facility], [address] [place] [address] 00906 Lymphocytes # (Auto) February 05, 2020 8:35pm 3.3 # 0.6-4.6 [facility], [address] [place] [address] 96723 Lymphocytes # (Auto) February 01, 2020 2:22pm 3.5 # 0.6-4.6 [facility], [address] [place] [address] 95481 Lymphocytes # (Auto) July 31, 2019 11:18am 2.5 # 0.6-4.6 [facility], [address] [place] [address] 91245 Monocytes (%) (Auto) June 30 2:40pm 8.0 % 4-12 [facility], [address] [place] [address] 48853 Monocytes (%) (Auto) February 05, 2020 8:35pm 6.6 % 4-12 [facility], [address] [place] [address] 82822 Monocytes (%) (Auto) February 01, 2020 2:22pm 8.5 % 4-12 [facility], [address] [place] [address] 40574 Monocytes (%) (Auto) July 31, 2019 11:18am 7.8 % 4-12 [facility], [address] [place] [address] 53808 Monocytes # June 30, 2020 2:40pm 0.7 # 0.2-1.2 [facility], [address] [place] [address] 10708 Monocytes # February 05, 2020 8:35pm 0.6 # 0.2-1.2 [facility], [address] [place] [address] 95848 Monocytes # February 01, 2020 2:22pm 0.9 # 0.2-1.2 [facility], [address] [place] [address] 98205 Monocytes # July 31, 2019 11:18am 0.6 # 0.2-1.2 [facility], [address] [place] [address] 25700 Eosinophils (%) (Auto) June 30, 2020 2:40pm 0.1 % 0-7 [facility], [address] [place] [address] 17104 Eosinophils (%) (Auto) January 8:35pm 0.6 % 0-7 [facility], [address] [place] [address] 81627 Eosinophils (%) (Auto) January 2:22pm 0.5 % 0-7 [facility], [address] [place] [address] 91181 Eosinophils (%) (Auto) July 30 11:18am 0.6 % 0-7 [facility], [address] [place] [address] 24355 Absolute Eosinophils (CBC) June 022020 2:40pm 0.0 # 0.0-0.5 [facility], [address] [place] [address] Absolute Eosinophils (CBC) February 05, 2020 8:35pm 0.1 # 0.0-0.5 [facility], [address] [place] [address] Absolute Eosinophils (CBC) February 01, 2020 2:22pm 0.1 # 0.0-0.5 [facility], [address] [place] [address] 97722 Absolute Eosinophils (CBC) July 11:18am 0.1 # 0.0-0.5 [facility], [address] [place] [address] 04879 Basophils (%) (Auto) June 30 2:40pm 0.4 % 0.4-1.3 [facility], [address] [place] [address] 22348 Basophils (%) (Auto) February 05, 2020 8:35pm 0.3 % 0.4-1.3 [facility], [address] [place] [address] 09171 Basophils (%) (Auto) February 01, 2020 2:22pm 0.3 % 0.4-1.3 [facility], [address] [place] [address] 92061 Basophils (%) (Auto) July 31, 2019 11:18am 0.1 % 0.4-1.3 [facility], [address] [place] [address] 84186 Absolute Basophils (CBC) May 2:40pm 0.0 # 0.0-0.2 [facility], [address] [place] [address] 16006 Absolute Basophils (CBC) February 042019 8:35pm 0.0 # 0.0-0.2 [facility], [address] [place] [address] 46066 Absolute Basophils (CBC) January 312019 2:22pm 0.0 # 0.0-0.2 [facility], [address] [place] [address] 51504 Absolute Basophils (CBC) July 31, 2019 11:18am 0.0 # 0.0-0.2 [facility], [address] [place] [address] 98115 Immature Granulocyte % (Auto) Mayuar 2020 2:40pm 0.4 % 0-2 [facility], [address] [place] [address] 07544 Immature Granulocyte % (Auto) 2019 8:35pm 0.2 % 0-2 [facility], [address] [place] [address] 68214 Immature Granulocyte % (Auto) 2019 2:22pm 0.1 % 0-2 [facility], [address] [place] [address] 79635 Immature Granulocyte % (Auto) July 31, 2019 11:18am 0.1 % 0-2 [facility], [address] [place] [address] 21076 Absolute Immature Granulocyte (auto June 30, 2020 2:40pm 0.0 # 0-0.1 [facility], [address] [place] [address] 58418 Absolute Immature Granulocyte (auto February 05, 2020 8:35pm 0.0 # 0-0.1 [facility], [address] [place] [address] 60075 Absolute Immature Granulocyte (auto February 01, 2020 2:22pm 0.0 # 0-0.1 [facility], [address] [place] [address] 75318 Absolute Immature Granulocyte (auto July 31, 2019 11:18am 0.0 # 0-0.1 [facility], [address] [place] [address] 24106 Add Manual Differential May 2:40pm No [facility], [address] [place] [address] 26534 Add Manual Differential January h2019 8:35pm No [facility], [address] [place] [address] 21422 Add Manual Differential January 2:22pm No [facility], [address] [place] [address] 45718 Add Manual Differential July 30 11:18am No [facility], [address] [place] [address] 18497 Prothrombin Time February 05, 2020 8:35p m 11.2 SECONDS 9.6-12.3 [facility], [address] [place] [address] 69527 INR International Normalized Ratio S ep2019 8:35pm 1.1 0.9-1.1 THE INR IS OPERATIONALLY DEFINED FOR GILMA SH PLASMA FROMPATIENTS STABILIZED ON ORAL ANTICOAGULANTS. ROUTINE ANTICOAGULANT THERAPY 2.0-3.0RECURRENT SYSTEMIC EMBOLISM/HEART VALVE REPLACEMENT 2.5-3.5 [facility], [address] [place] [address] 97477 Partial Thromboplastin Time - Sharon S ep2019 8:35pm 26.4 SECONDS 22.7-31.6 [facility], [address] [place] [address] 66819 Urine Color July 31, 2019 11:25am Yellow [facility], [address] [place] [address] 35375 Urine Color June 30, 2020 4:30pm Yellow [facility], [address] [place] [address] 28414 Urine Color February 05, 2020 8:15pm Yellow [facility], [address] [place] [address] 54351 Urine Appearance June 30, 2020 4:30pm Clear CLEAR [facility], [address] [place] [address] 69158 Urine Appearance February 05, 2020 8:15p m Clear CLEAR [facility], [address] [place] [address] 60932 Urine Appearance July 31, 2019 11:25am Clear CLEAR [facility], [address] [place] [address] 87651 Urine pH June 30, 2020 4:30pm 7.0 [facility], [address] [place] [address] 23805 Urine pH February 05, 2020 8:15pm 7.0 [facility], [address] [place] [address] 02148 Urine pH July 31, 2019 11:25am 8.0 [facility], [address] [place] [address] 03873 Urine Specific [place] June 30, 2020 4:30pm 1.016 [facility], [address] [place] [address] 32263 Urine Specific [place] January 8:15pm 1.008 [facility], [address] [place] [address] 54496 Urine Specific [place] July 30 11:25am 1.022 [facility], [address] [place] [address] 97984 Urine Leukocyte Esterase July 31, 2019 11:25am Negative NEGATIVE [facility], [address] [place] [address] 68105 Urine Leukocyte Esterase May 4:30pm Negative NEGATIVE [facility], [address] [place] [address] 77734 Urine Leukocyte Esterase February 042019 8:15pm Negative NEGATIVE [facility], [address] [place] [address] 16594 Urine Nitrite July 31, 2019 11:25am Negative NEGATIVE [facility], [address] [place] [address] 96477 Urine Nitrate June 30, 2020 4:30pm Negative NEGATIVE [facility], [address] [place] [address] 42691 Urine Nitrate February 05, 2020 8:15pm Negative NEGATIVE [facility], [address] [place] [address] 30024 Urine Protein June 30, 2020 4:30pm Negative NEGATIVE [facility], [address] [place] [address] 70045 Urine Protein February 05, 2020 8:15pm Negative NEGATIVE [facility], [address] [place] [address] 81166 Urine Protein July 31, 2019 11:25am Negative NEGATIVE [facility], [address] [place] [address] 16073 Urine Glucose June 30, 2020 4:30pm Negative NEGATIVE [facility], [address] [place] [address] 42785 Urine Glucose February 05, 2020 8:15pm Negative NEGATIVE [facility], [address] [place] [address] 75185 Urine Glucose July 31, 2019 11:25am Negative NEGATIVE [facility], [address] [place] [address] 14591 Urine Ketones June 30, 2020 4:30pm 15 mg/dl NEGATIVE [facility], [address] [place] [address] 57831 Urine Ketones February 05, 2020 8:15pm Trace NEGATIVE [facility], [address] [place] [address] 19590 Urine Ketones July 31, 2019 11:25am Negative NEGATIVE [facility], [address] [place] [address] [id number] Urine Urobilinogen June 30 4:30pm 0.2 eu/dl [facility], [address] [place] [address] [id number] Urine Urobilinogen February 04 8:15pm 0.2 eu/dl [facility], [address] [place] [address] [id number] Urine Urobilinogen July 31, 2019 11:25am 1 eu/dl [facility], [address] [place] [address] [id number] Urine Bilirubin June 30, 2020 4:30pm Negative NEGATIVE [facility], [address] [place] [address] [id number] Urine Bilirubin February 05, 2020 8:15pm Negative NEGATIVE [facility], [address] [place] [address] [id number] Urine Bilirubin July 31, 2019 11:25am Negative NEGATIVE [facility], [address] [place] [address] [id number] Urine Blood July 31, 2019 11:25am Negative NEGATIVE [facility], [address] [place] [address] [id number] Urine Blood June 30, 2020 4:30pm Negative NEGATIVE [facility], [address] [place] [address] [id number] Urine Blood February 05, 2020 8:15pm Negative NEGATIVE [facility], [address] [place] [address] 25100 Microscopic Urinalysis Comment July 31, 2019 11:25am No [facility], [address] [place] [address] 54773 Add Urine Microanalysis May 4:30pm No [facility], [address] [place] [address] 11179 Add Urine Microanalysis January 8:15pm No [facility], [address] [place] [address] 20076 Blood Urea Nitrogen June 30 2:40pm 6 mg/dL 02-20 [facility], [address] [place] [address] 55233 Blood Urea Nitrogen February 04 020 8:35pm 8 mg/dL 02-20 [facility], [address] [place] [address] Blood Urea Nitrogen January 31 020 2:22pm 6 mg/dL 02-20 [facility], [address] [place] [address] 70197 Blood Urea Nitrogen July 31, 2019 11:18a m 17 mg/dL 02-20 [facility], [address] [place] [address] 05601 Sodium Level June 30, 2020 2:40pm 132 mmol/L 132-146 [facility], [address] [place] [address] 32276 Sodium Level February 05, 2020 8:35pm 137 mmol/L 132-146 [facility], [address] [place] [address] Sodium Level February 01, 2020 2:22pm 134 mmol/L 132-146 [facility], [address] [place] [address] 90659 Sodium Level July 31, 2019 11:18am 138 mmol/L 132-146 [facility], [address] [place] [address] 55292 Potassium Level June 30, 2020 2:40pm 3.9 mmol/L 3.5-5.5 [facility], [address] [place] [address] 03126 Potassium Level February 05, 2020 8:35pm 3.7 mmol/L 3.5-5.5 [facility], [address] [place] [address] 99022 Potassium Level February 01, 2020 2:22pm 4.0 mmol/L 3.5-5.5 [facility], [address] [place] [address] 29277 Potassium Level July 31, 2019 11:18am 4.5 mmol/L 3.5-5.5 [facility], [address] [place] [address] 46920 Chloride Level June 30, 2020 2:40pm 98 mmol/l 99-109 [facility], [address] [place] [address] 68367 Chloride Level February 05, 2020 8:35pm 105 mmol/l 99-109 [facility], [address] [place] [address] 38416 Chloride Level February 01, 2020 2:22pm 101 mmol/l 99-109 [facility], [address] [place] [address] 65834 Chloride Level July 31, 2019 11:18am 105 mmol/l 99-109 [facility], [address] [place] [address] 74913 Carbon Dioxide Level June 30 2:40pm 26 mmol/l 20-31 [facility], [address] [place] [address] 97352 Carbon Dioxide Level February 05, 2020 8:35pm 25 mmol/l 20-31 [facility], [address] [place] [address] 08916 Carbon Dioxide Level February 01, 2020 2:22pm 28 mmol/l 20-31 [facility], [address] [place] [address] 78260 Carbon Dioxide Level July 31, 2019 11:18am 28 mmol/l 20-31 [facility], [address] [place] [address] 45631 Anion Gap June 30, 2020 2:40pm 12 mmol/l 8-16 [facility], [address] [place] [address] 65689 Anion Gap February 05, 2020 8:35pm 11 mmol/l 8-16 [facility], [address] [place] [address] Anion Gap February 01, 2020 2:22pm 9 mmol/l 01-13 [facility], [address] [place] [address] Anion Gap July 31, 2019 11:18am 10 mmol/l 01-13 [facility], [address] [place] [address] Glucose Level June 30, 2020 2:40pm 109 mg/dL 74-106 [facility], [address] [place] [address] Glucose Level February 05, 2020 8:35pm 92 mg/dL 74-106 [facility], [address] [place] [address] Glucose Level February 01, 2020 2:22pm 92 mg/dL 74-106 [facility], [address] [place] [address] Glucose Level July 31, 2019 11:18am 97 mg/dL 74-106 [facility], [address] [place] [address] Creatinine June 30, 2020 2:40pm 0.7 mg/dL 0.5-1.1 [facility], [address] [place] [address] Creatinine February 05, 2020 8:35pm 0.7 mg/dL 0.5-1.1 [facility], [address] [place] [address] Creatinine February 01, 2020 2:22pm 0.9 mg/dL 0.5-1.1 [facility], [address] [place] [address] Creatinine July 31, 2019 11:18am 0.9 mg/dL 0.5-1.1 [facility], [address] [place] [address] Glomerular Filtration Rate Calc Gilmer ondina 2020 2:40pm Greater than 60 ml/min ABOVE 60 [facility], [address] [place] [address] 58916 Glomerular Filtration Rate Calc Sept ember 2019 8:35pm Greater than 60 ml/min ABOVE 60 [facility], [address] [place] [address] Glomerular Filtration Rate Calc Sept ember 2019 2:22pm Greater than 60 ml/min ABOVE 60 [facility], [address] [place] [address] Glomerular Filtration Rate Calc Martin h 2019 11:18am Greater than 60 ml/min ABOVE 60 [facility], [address] [place] [address] 62776 Alanine Aminotransferase (ALT/SGPT) June 30, 2020 2:40pm 31 U/L 10-49 [facility], [address] [place] [address] 82544 Alanine Aminotransferase (ALT/SGPT) February 05, 2020 8:35pm 36 U/L 10-49 [facility], [address] [place] [address] 78701 Alanine Aminotransferase (ALT/SGPT) July 31, 2019 11:18am 44 U/L 10-49 [facility], [address] [place] [address] 58827 Aspartate Amino Transf (AST/SGOT) [facility] 2020 2:40pm 17 U/L 0-33 [facility], [address] [place] [address] 43126 Aspartate Amino Transf (AST/SGOT) [facility] 2019 8:35pm 22 U/L 0-33 [facility], [address] [place] [address] 94357 Aspartate Amino Transf (AST/SGOT) [facility] 2019 11:18am 20 U/L 0-33 [facility], [address] [place] [address] 86767 Alkaline Phosphatase June 30 2:40pm 69 U/L 45-129 [facility], [address] [place] [address] 53066 Alkaline Phosphatase February 05, 2020 8:35pm 55 U/L 45-129 [facility], [address] [place] [address] 86777 Alkaline Phosphatase July 31, 2019 11:18am 63 U/L 45-129 [facility], [address] [place] [address] 36573 Amylase Level June 30, 2020 2:40pm 46 U/L 30-118 [facility], [address] [place] [address] 08382 Lipase June 30, 2020 2:40pm 99 U/L 73-393 [facility], [address] [place] [address] 77630 Calcium Level June 30, 2020 2:40pm 8.8 mg/dL 8.5-10.1 [facility], [address] [place] [address] 66734 Calcium Level February 05, 2020 8:35pm 9.4 mg/dL 8.5-10.1 [facility], [address] [place] [address] 53835 Calcium Level February 01, 2020 2:22pm 9.9 mg/dL 8.5-10.1 [facility], [address] [place] [address] 83019 Calcium Level July 31, 2019 11:18am 9.1 mg/dL 8.5-10.1 [facility], [address] [place] [address] 67047 Total Bilirubin June 30, 2020 2:40pm 0.6 mg/dL 0.3-1.2 [facility], [address] [place] [address] 01521 Total Bilirubin February 05, 2020 8:35pm 0.7 mg/dL 0.3-1.2 [facility], [address] [place] [address] 19548 Total Bilirubin July 31, 2019 11:18am 1.0 mg/dL 0.3-1.2 [facility], [address] [place] [address] 03881 Albumin June 30, 2020 2:40pm 3.8 g/dL 3.2-4.8 [facility], [address] [place] [address] 63537 Albumin February 05, 2020 8:35pm 3.9 g/dL 3.2-4.8 [facility], [address] [place] [address] 37125 Albumin July 31, 2019 11:18am 4.1 g/dL 3.2-4.8 [facility], [address] [place] [address] 44314 Serum Total Protein June 30 2:40pm 6.9 g/dL 5.7-8.2 [facility], [address] [place] [address] 65167 Serum Total Protein February 04 8:35pm 6.6 g/dL 5.7-8.2 [facility], [address] [place] [address] 09493 Serum Total Protein July 31, 2019 11:18a m 7.1 g/dL 5.7-8.2 [facility], [address] [place] [address] 68897 Lactic Acid Level February 04 0 8:35pm 0.8 mmol/L 0.5-2.2 [facility], [address] [place] [address] 50650 Triglycerides Level July 31, 2019 11:18a m 174 mg/dL 0-150 [facility], [address] [place] [address] Cholesterol Level July 31, 2019 11:18am 212 mg/dL 120-200 [facility], [address] [place] [address] 10895 HDL Cholesterol July 31, 2019 11:18am 44 mg/dL HDL Less than 40 mg/dL: Major risk for CHDHDL Greater than 59 mg/dL: Low risk for CHD [facility], [address] [place] [address] 32864 LDL Cholesterol, Calculated July 11:18am 134 mg/dL 0-100 [facility], [address] [place], [place] [id number] Free Testosterone (Direct) April 04, 2020 10:50am 218.6 pg/mL The concentration of free testosterone is derivedfrom a mathematical model using total testosteroneby LCMSMS, sex hormone binding globulin and albumin.This test was developed and its analytical performancecharacteristics have been determined by [employer] [place], [place]. It hasnot been cleared or approved by the U.S. Food and DrugAdministration. This assay has been validated pursuantto the CLIA regulations and is used for clinicalpurposes.THIS TEST WAS PERFORMED AT:[facility] [place] [address]REATTYABLAISE FOY MD,PHD [facility] Testosterone Level April 04 0 10:50am 649 ng/dL THIS TEST WAS PERFORMED AT:[facility] [id number] MERATI,MD [facility] Microbiology Results Procedure Source Result Collection Date/Time Result Date/Time Result Comment Performing Site SARS Antigen (LFIA) Nasal BinaxNow Covid -19 Ag Negative June 21, 2020 5:19pm June 21, 2020 6:08pm [facility], [address] [place] [address] 09823 Venous blood No Organi sms Detected February 07, 2020 7:01pm February 09, 2020 11:39am [facility], [address] [place] [address] 00986 Diagnostic Imaging Reports Report Dictated Date/Time Dictated By Status Radiology Report February 05, 2020 11:46pm Preston Lucas MD completed [place] [address] [place] [address] [phone] NAME SEX PT STATUS ACCOUNT NUMBER PIPER AN [facility] [id number] ORDERING PHYSICIAN LOCATION MEDICAL RECORD NO. Skip [place]uther[place] MD ER [id number] ATTENDING PHYSICIAN DATE OF DATE OF EXAM/TIME YonathanKelli ANTHONY 1970 02/05/202120 TYPE / EXAM CT Abd/pel [...] Directive Response Recorded Date/Time Advanced Directive No Frankie van 2020 12:44pm Does Patient have a DNR? No June 30, 2020 12:44pm Healthcare Proxy No Gilmer ondina 2020 12:44pm Living Will No February 01, 2020 1:41pm Chief Complaint and Reason for Visit Chief Complaint Medication check Z00.00,I10 Allergies Amb Documentation Snoring, Excessive Daytime Sleepiness, [place], HTN Skin complaints Hernia PRE OP/K42.9 ABD PAIN, BACK PAIN Medication check Medication check R79.89 Anxiety follow-up Depression follow-up Depression follow-up Telemed Visit STOMACH PAIN, WEAKNESS Reason for Visit Lump in neck Umbilical hernia Umbilical hernia Depression Anxiety Depression Paranoia PTSD (post-traumatic stress disorder) Anxiety Depression Depression Headache Sinus pain Encounters Encounter Location(s) Ar rival/Admit Date Discharge/Depart Date Provider(s) Departed Physician/Provider Office Visit [facility] July 12, 2019 9:48am July 12, 2019 10:15am Kelli Mcmanus Registered Referred [facility] July 31, 2019 11:05am Kelli Mcmanus Departed Physician/Provider Office Visit [facility] October 19, 2019 8:56am October 19, 2019 9:31am Kelli Mcmanus Registered Outpatient [facility] D[facility]ology November 13, 2019 2:43pm null Registered Referred [facility] November 16, 2019 6:30pm Kelli Mcmanus Departed Physician/Provider Office Visit [facility] December 20, 2019 9:19am December 20, 2019 9:55am Kelli Mcmanus Departed Physician/Provider Office Visit [facility] General Surgery February 01, 2020 1:31pm February 01, 2020 2:13pm Naveed Hannon MD Registered Referred [facility] February 01, 2020 2:19pm Naveed Hannon MD Departed Emergency [facility] ER February 05, 2020 7:55pm February 06, 2020 12:37am null Registered Referred [facility] February 07, 2020 5:55pm [facility] Departed Physician/Provider Office Visit [facility] March 13, 2020 8:54am March 13, 2020 9:40am Kelli Mcmanus Departed Physician/Provider Office Visit [facility] April 04, 2020 10:04am April 04, 2020 10:33am Kelli Mcmanus Registered Referred [facility] April 04, 2020 10:35am Kelli Mcmanus Departed Physician/Provider Office Visit [facility] April 24, 2020 11:39am April 24, 2020 11:50am Kelli Mcmanus Departed Physician/Provider Office Visit [facility] May 07, 2020 10:55am May 07, 2020 11:28am Kelli Mcmanus Departed Physician/Provider Office Visit [facility] June 04, 2020 1:14pm June 04, 2020 1:47pm Kelli valladares Departed Physician/Provider Office Visit [facility] June 21, 2020 9:36am June 21, 2020 10:17am Kelli Mcmanus Registered Referred [facility] June 21, 2020 5:56pm Kelli Mcmanus Departed Emergency [facility] June 30, 2020 12:20pm June 30, 2020 5:18pm null Recent Diagnosis Onset Date Lump in neck [...] Event Date Not Given Reason Dose Number [employer] Lot Number Vaccine Information Statement (VIS) Detamisha il influenza vaccine, inactivated Octob er 2019 [id number] Mental Status Observation Response Kal e Recorded Impairments No impairments or barriers June 30, 2020 12:21pm Medical Equipment No Medical Equipment Information available Insurance Providers Guarantor PIPER AN Address [address] [place] [address] Contact Info. Home Phone: Payer Policy Id Coverage Id Subscriber's Name Subscriber Id Effective Date Expiration Date [employer] [id number] PIPER AN [id number] [employer] [id number] PIPER AN [id number] [facility] [id number] PIPER AN [id number] [employer] [id number] PIPER AN [id number] Self Pay Self N/A [facility] [id number] PIPER AN [id number] Plan of Treatment Continue 150mg sertaline. See back in 2-3 months for annual PE. Continue to [facility]. Anxiety at baseline. Will keep [...] on new medications. He was seeing in [place], however, he is unable to be seen [...] with the operation. 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 He is taking 2 allergy medications already [...] Provider Provider Conta ct Information Provider Address Follow-up in 2 to 3 days Kelli Mcmanus Work Phone: [phone] [address] Juan Garcia MD Email: [email or web address] Phone: [phone] [facility] [phone] Future Procedures Future procedure information is unavailable Future Medications Future medication information is unavailable Patient Instructions DASH Eating Plan (GEN) Hypertension (GEN) Proctitis (ED) Social History Smoking Status Status Date of Observation Never smoker June 30, 2020 12:4 4pm Observation Status Observation Response Kal e of Response Smoking Status Never smoker June 30, 2020 12:44pm Alcohol Use Yes Septembe r 7th, 2020 8:21pm Substance Use Yes adán 2019 8:21pm [...] 06, 2020 12:56am Heart Rate 88 /min -100 February 06, 2020 12:56am Respiratory rate 18 [...] 04, 2020 10:06am Respiratory rate 18 /min 12-April 04, 2020 10:06am Oxygen saturation by Pulse [...] Diastolic 80 mm[Hg] June 04, 2020 1:25pm Height 70 [in_i] June 30, 2020 12:21pm Weight 250.00 [lb_av] June 30, 2020 12:21pm Body Temperature 98.2 [degF] 97.6-99.5 June 30, 2020 12:21pm Heart Rate 88 /min 60-100 June 30, 2020 12:21pm Respiratory rate 16 /min 12-24 June 30, 2020 12:21pm Oxygen saturation by Pulse oximetry 98 % 95- 100 June 30, 2020 12:21pm BP Systolic 138 mm[Hg] June 30, 2020 12:21pm BP Diastolic 82 mm[Hg] June 30, 2020 12:21pm
[2020-07-01] MEDS ORDERED: LEVO750T13 (07:43)
[2020-07-01] MEDS ORDERED: METR-265 (07:43)
--- OUTSIDE RECORDS SUMMARY | 2020-07-01 07:44 | CCD ---
Author Author [facility] Address Unknown Phone Unavailable Care Team Providers Care Licensed Veterinary Technician Name Role Phone Riddhi [phone] MD Naveed LOUIS Unavailable Unavailable Riddhi [phone] MD Naveed [place] Unavailable Unavailable Riddhi [phone] Lucio MD Unavailable Unavailable DANIA, CATARINO Unavailable Unavailable [facility], [phone] Unavailable Unavailable Judit Masters MD Unavailable Unavailable Judit Masters MD Unavailable Unavailable Judit Masters MD Unavailable Unavailable Judit Masters MD Unavailable Unavailable Sonam K Marin [place] Unavailable Unavailable Sonam, K Marin [place] Unavailable Unavailable Sonam, K Marin [place] Unavailable Unavailable Sonam, K Marin [place] Unavailable Unavailable Judit Masters MD Unavailable Unavailable Sonam, K Marin [place] Unavailable Unavailable Sonam K Marin [place] Unavailable Unavailable Skip Rutherford MD Unavailable Unavailable Viroqua Falanga, A Johanna MAIL HANDLERS SUPERVISOR Unavailable Unavailable Viroqua Falanga, A Johanna MAIL HANDLERS SUPERVISOR Unavailable Unavailable Amador Falanga, A Johanna MAIL HANDLERS SUPERVISOR Unavailable Unavailable Viroqua Falanga, A Johanna MAIL HANDLERS SUPERVISOR Unavailable Unavailable Amador Falanga, A Johanna MAIL HANDLERS SUPERVISOR Unavailable Unavailable Amador Falanga, A Johanna MAIL HANDLERS SUPERVISOR Unavailable Unavailable Amador Falanga, A Johanna MAIL HANDLERS SUPERVISOR Unavailable Unavailable Viroqua Falanga, A Johanna MAIL HANDLERS SUPERVISOR Unavailable Unavailable Viroqua Falanga, A Johanna MAIL HANDLERS SUPERVISOR Unavailable Unavailable Amador Falanga, A Johanna MAIL HANDLERS SUPERVISOR Unavailable Unavailable Viroqua Falanga, A Johanna MAIL HANDLERS SUPERVISOR Unavailable Unavailable Amador Falanga, A Johanna MAIL HANDLERS SUPERVISOR Unavailable Unavailable Viroqua Falanga, A Johanna MAIL HANDLERS SUPERVISOR Unavailable Unavailable Viroqua Falanga, A Johanna MAIL HANDLERS SUPERVISOR Unavailable Unavailable Amador Falanga, A Johanna MAIL HANDLERS SUPERVISOR Unavailable Unavailable Viroqua Falanga, A Johanna MAIL HANDLERS SUPERVISOR Unavailable Unavailable Amdaor Falanga, A Johanna MAIL HANDLERS SUPERVISOR Unavailable Unavailable Viroqua Falanga, A Johanna MAIL HANDLERS SUPERVISOR Unavailable Unavailable Viroqua Falanga, A Johanna MAIL HANDLERS SUPERVISOR Unavailable Unavailable Viroqua Falanga, A Johanna MAIL HANDLERS SUPERVISOR Unavailable Unavailable Amador Falanga, A Johanna MAIL HANDLERS SUPERVISOR Unavailable Unavailable Viroqua Falanga, A Johanna MAIL HANDLERS SUPERVISOR Unavailable Unavailable Amador Falanga, A Johanna MAIL HANDLERS SUPERVISOR Unavailable Unavailable Amador Falanga, A Johanna MAIL HANDLERS SUPERVISOR Unavailable Unavailable Amador Falanga, A Johanna MAIL HANDLERS SUPERVISOR Unavailable Unavailable Viroqua Falanga, A Johanna MAIL HANDLERS SUPERVISOR Unavailable Unavailable Viroqua Falanga, A Johanna MAIL HANDLERS SUPERVISOR Unavailable Unavailable Amador Falanga, A Johanna MAIL HANDLERS SUPERVISOR Unavailable Unavailable Viroqua Falanga, A Johanna MAIL HANDLERS SUPERVISOR Unavailable Unavailable Amador Falanga, A Johanna MAIL HANDLERS SUPERVISOR Unavailable Unavailable ANTONIA FRAZIER MD Unavailable Unavailable AMERANTONIA ETIENNE MD Unavailable Unavailable ANTONIA FRAZIER MD Unavailable Unavailable AMANTONIA MERIDA MD Unavailable Unavailable AMERANTONIA ETIENNE MD Unavailable Unavailable AMERANTONIA ETIENNE MD Unavailable Unavailable AMERANTONIA ETIENNE MD Unavailable Unavailable AMERNATANTONIA Perkins MD Unavailable Unavailable AMERANTNOIA ETIENNE MD Unavailable Unavailable AMERANTONIA ETIENNE MD Unavailable Unavailable AMERANTONIA ETIENNE MD Unavailable Unavailable AMERANTONIA ETIENNE MD Unavailable Unavailable ROSALES ., MAGDA DO Unavailable Unavailable ROSALES ., MAGDA DO Unavailable Unavailable Jorge Luis Richardson MD Unavailable Unavailable DylanJorge Luis beauchamp MD Unavailable Unavailable DylanJorge Luis beauchamp MD Unavailable Unavailable DylanJorge Luis beauchamp MD Unavailable Unavailable DylanJorge Luis beauchamp MD Unavailable Unavailable DylanJorge Luis beauchamp MD Unavailable Unavailable DylanJorge Luis beauchamp MD Unavailable Unavailable DylanJorge Luis beauchamp MD Unavailable Unavailable DylanJorge Luis beauchamp MD Unavailable Unavailable DylanJorge Luis beauchamp MD Unavailable Unavailable Jorge Luis Richardson MD [...] Unavailable Jorge Luis Richardson MD Unavailable Unavailable DylanJorge Luis beauchamp MD Unavailable Unavailable DylanJorge Luis beauchamp MD Unavailable Unavailable Dylan, Jorge Luis Biggs MD Unavailable Unavailable Dylan, Jorge Luis Biggs MD Unavailable Unavailable Dylan, Jorge Luis Biggs MD Unavailable Unavailable Dylan, Jorge Luis Biggs MD Unavailable Unavailable Dylan, Jorge Luis Biggs MD Unavailable Unavailable Dylan, Jorge Luis Biggs MD Unavailable Unavailable Yonathan, A Kelli SUPERVISOR POLE YARD Unavailable Unavailable Yonathan, A Kelli SUPERVISOR POLE YARD Unavailable Unavailable Yonathan, A Kelli SUPERVISOR POLE YARD Unavailable Unavailable Yonathan, A Kelli SUPERVISOR POLE YARD Unavailable Unavailable Yonathan, A Kelli SUPERVISOR POLE YARD Unavailable Unavailable Yonathan, A Kelli SUPERVISOR POLE YARD Unavailable Unavailable Yonathan, A Kelli SUPERVISOR POLE YARD Unavailable Unavailable Yonathan, A Kelli SUPERVISOR POLE YARD Unavailable Unavailable Yonathan, A Kelli SUPERVISOR POLE YARD Unavailable Unavailable Yonathan, A Kelli SUPERVISOR POLE YARD Unavailable Unavailable Yonathan, A Kelli SUPERVISOR POLE YARD Unavailable Unavailable Yonathan, A Kelli SUPERVISOR POLE YARD Unavailable Unavailable Yonathan, A Kelli SUPERVISOR POLE YARD Unavailable Unavailable Yonathan, A Kelli SUPERVISOR POLE YARD Unavailable Unavailable Yonathan, A Kelli SUPERVISOR POLE YARD Unavailable Unavailable Yonathan, A Kelli SUPERVISOR POLE YARD Unavailable Unavailable Yonathan, A Kelli SUPERVISOR POLE YARD Unavailable Unavailable Yonathan, A Kelli SUPERVISOR POLE YARD Unavailable Unavailable Yonathan, A Kelli SUPERVISOR POLE YARD Unavailable Unavailable Yonathan, A Kelli SUPERVISOR POLE YARD Unavailable Unavailable Yonathan, A Kelli SUPERVISOR POLE YARD Unavailable Unavailable Yonathan, A Kelli SUPERVISOR POLE YARD Unavailable Unavailable Yonathan, A Kelli SUPERVISOR POLE YARD Unavailable Unavailable Yonathan, A Kelli SUPERVISOR POLE YARD Unavailable Unavailable Yonathan, A Kelli SUPERVISOR POLE YARD Unavailable Unavailable Yonathan, A Kelli SUPERVISOR POLE YARD Unavailable Unavailable Yonathan, A Kelli SUPERVISOR POLE YARD Unavailable Unavailable Yonathan, A Kelli SUPERVISOR POLE YARD Unavailable Unavailable Yonathan, A Kelli SUPERVISOR POLE YARD Unavailable Unavailable Yonathan, A Kelli SUPERVISOR POLE YARD Unavailable Unavailable Yonathan, A Kelli SUPERVISOR POLE YARD Unavailable Unavailable Yonathan, A Kelli SUPERVISOR POLE YARD Unavailable Unavailable Yonathan, A Kelli SUPERVISOR POLE YARD Unavailable Unavailable Yonathan, A Kelli SUPERVISOR POLE YARD Unavailable Unavailable Yonathan, A Kelli SUPERVISOR POLE YARD Unavailable Unavailable Yonathan, A Kelli SUPERVISOR POLE YARD Unavailable Unavailable Yonathan, A Kelli SUPERVISOR POLE YARD Unavailable Unavailable Yonathan, A Kelli SUPERVISOR POLE YARD Unavailable Unavailable Yonathan, A Kelli SUPERVISOR POLE YARD Unavailable Unavailable Yonathan, A Kelli SUPERVISOR POLE YARD Unavailable Unavailable Yonathan, A Kelli SUPERVISOR POLE YARD Unavailable Unavailable Yonathan, A Kelli SUPERVISOR POLE YARD Unavailable Unavailable Yonathan, A Kelli SUPERVISOR POLE YARD Unavailable Unavailable Yonathan, A Kelli SUPERVISOR POLE YARD Unavailable Unavailable Yonathan, A Kelli SUPERVISOR POLE YARD Unavailable Unavailable Yonathan, A Kelli SUPERVISOR POLE YARD Unavailable Unavailable Yonathan, A Kelli SUPERVISOR POLE YARD Unavailable Unavailable Yonathan, A Kelli SUPERVISOR POLE YARD Unavailable Unavailable Yonathan, A Kelli SUPERVISOR POLE YARD Unavailable Unavailable Yonathan, A Kelli SUPERVISOR POLE YARD Unavailable Unavailable Yonathan, A Kelli SUPERVISOR POLE YARD Unavailable Unavailable Yonathan, A Kelli SUPERVISOR POLE YARD Unavailable Unavailable Yonathan, A Kelli SUPERVISOR POLE YARD Unavailable Unavailable Yonathan, A Kelli SUPERVISOR POLE YARD Unavailable Unavailable Yonathan, A Kelli SUPERVISOR POLE YARD Unavailable Unavailable Yonathan, A Kelli SUPERVISOR POLE YARD Unavailable Unavailable Yonathan, A Kelli SUPERVISOR POLE YARD Unavailable Unavailable Yonathan, A Kelli SUPERVISOR POLE YARD Unavailable Unavailable Yonathan, A Kelli SUPERVISOR POLE YARD Unavailable Unavailable Yonathan, A Kelli SUPERVISOR POLE YARD Unavailable Unavailable Yonathan, A Kelli SUPERVISOR POLE YARD Unavailable Unavailable Yonathan, A Kelli SUPERVISOR POLE YARD Unavailable Unavailable Yonathan, A Kelli SUPERVISOR POLE YARD Unavailable Unavailable Yonathan, A Kelli SUPERVISOR POLE YARD Unavailable Unavailable Yonathan, A Kelli SUPERVISOR POLE YARD Unavailable Unavailable Yonathan, A Kelli SUPERVISOR POLE YARD Unavailable Unavailable Yonathan, A Kelli SUPERVISOR POLE YARD Unavailable Unavailable Yonathan, A Kelli SUPERVISOR POLE YARD Unavailable Unavailable Yonathan, A Kelli SUPERVISOR POLE YARD Unavailable Unavailable Yonathan, A Kelli SUPERVISOR POLE YARD Unavailable Unavailable Yonathan, A Kelli SUPERVISOR POLE YARD Unavailable Unavailable Yonathan, A Kelli SUPERVISOR POLE YARD Unavailable Unavailable Yonathan, A Kelli SUPERVISOR POLE YARD Unavailable Unavailable Yonathan, A Kelli SUPERVISOR POLE YARD Unavailable Unavailable Yonathan, A Kelli SUPERVISOR POLE YARD Unavailable Unavailable Yonathan, A Kelli SUPERVISOR POLE YARD Unavailable Unavailable Colon, Alcon [place] Unavailable Unavailable Althouse, Mirian SUPERVISOR POLE YARD Unavailable Unavailable DORRER, RPA P EB PA [...] Unavailable Unavailable CHANCE WELCH MD Unavailable Unavailable CHRCHANCE FRIAS MD Unavailable Unavailable CHANCE WELCH MD Unavailable Unavailable CHANCE WELCH MD Unavailable Unavailable CHANCE WELCH MD Unavailable Unavailable CHRCHANCE FRIAS MD Unavailable Unavailable CHANCE WELCH MD Unavailable Unavailable CHROSTCHANCE SOLOMON MD Unavailable Unavailable CHRCHANCE FRIAS MD Unavailable Unavailable CHANCE WELCH MD Unavailable Unavailable CHROSTCHANCE SOLOMON MD Unavailable Unavailable CHROSTCHANCE SOLOMON MD Unavailable Unavailable CHRCHANCE FRAIS MD Unavailable Unavailable CHANCE WELCH MD Unavailable Unavailable CHANCE WELCH MD Unavailable Unavailable HCANCE WELCH MD Unavailable Unavailable CHANCE WELCH MD Unavailable Unavailable CHANCE WELCH MD Unavailable Unavailable CHANCE WELCH MD Unavailable Unavailable CHANCE WELCH MD Unavailable Unavailable CHANCE WELCH MD Unavailable Unavailable CHANCE WELCH MD Unavailable Unavailable CHANCE WELCH MD Unavailable Unavailable CHANCE EWLCH MD Unavailable Unavailable CHANCE WELCH MD Unavailable [...] Unavailable Stefano Jennings MD Unavailable Unavailable Stefano Jennigns MD Unavailable Unavailable Stefano Jennings MD Unavailable [...] J ARELI PA Unavailable Unavailable TRIVEDI, J AREIL PA Unavailable Unavailable TRIVEDI, J ARELI PA [...] Jorge Luis Richardson MD Unavailable Unavailable Dylan, Jorge Luis Biggs [...] Dylan, Jorge Luis Biggs MD Unavailable Unavailable REMA, Jerry FISHER MD Unavailable Unavailable REMA, Jerry FISHER MD Unavailable Unavailable REMA, Jerry FISHER MD Unavailable Unavailable REMA, Jerry FISHER MD Unavailable Unavailable REMA, Jerry FISHER MD Unavailable Unavailable REMA, Jerry FISHER MD Unavailable Unavailable REMA, Jerry FISHER MD Unavailable Unavailable REMA, Jerry FISHER MD Unavailable Unavailable REMA, Jerry FISHER MD Unavailable Unavailable REMA, Jerry FISHER MD Unavailable Unavailable REMA, Jerry FISHER MD Unavailable Unavailable REMA, Jerry FISHER MD Unavailable Unavailable REMA, Jerry FISHER MD Unavailable Unavailable REMA, Jerry FISHER MD Unavailable Unavailable REMA, Jerry FISHER MD Unavailable Unavailable REMA, Jerry FISHER MD Unavailable Unavailable REMA, Jerry FISHER MD Unavailable Unavailable REMA, Jerry FISHER MD Unavailable Unavailable REMA, Jerry FISHER MD Unavailable Unavailable REMA, Jerry FRANCOA MD Unavailable Unavailable Jerry HODGSON MD Unavailable Unavailable Jerry HODGSON MD Unavailable Unavailable Jerry HODGSON MD Unavailable Unavailable Eb Becker Unavailable Unavailable [...] is protected by Article 27-F of the [facility] Public Health law. If you continue you may have access to information: Regarding HIV / AIDS; Provided by facilities licensed or operated by the [facility] Office of Mental Health; or Provided by the [facility] Office for People With Developmental Disabilities. If such information is present, then the following [facility] mandated warning applies: This information has been [...] law may result in a fine or detention sentence or both. A general authorization for the release of medical or other information is NOT sufficient authorization for further disc losure. Allergies and Adverse Reactions Type Description Substance Reaction Status Data Source(s ) Drug allergy haloperidol haloperidol Other, not listed [facility] No Known Drug Allergies No Known Drug Allergies [facility] Drug allergy No Known Allergies No Known Allergies [facility] rag weed rag weed builds up eye drainage, post nasal d rip [facility] dust mites dust mites builds up drainage in eyes , post na makenna drip [facility] Drug allergy No Known Drug Allergies No Known Drug Allergies [facility] Drug Allergy Drug Allergy NKDA [facility] ([facility]) Encounters Encounter Providers Location Date Indications Data Source(s ) Emergency Attender: Marin Masters MD 06/30/19 12:20:00 PM [facility] - 06/30/2020 05:18:00 PM EST STOMACH PAIN, WEAKNESS [facility] STOMACH PAIN, WEAKNESS Patient discharged. Outpatient Attender: eKlli Mcmanus NP 06/21/2020 05:56:00 PM [facility] Outpatient Attender: Kelli Mcmanus NPReferrer: Kelli castro SUPERVISOR POLE YARD 06/21/2020 09:36:[address] [facility] Outpatient Attender: JEANETTE DURANTConsultant: Kelli Araiza P 06/13/2020 08:02:00 AM [facility] - 06/13/2020 08:02:00 AM [facility] Outpatient Attender: JEANETTE DURANTConsultant: Kelli Araiza P 06/06/2020 01:55:00 PM EST - 06/06/2020 01:55:00 PM [facility] Outpatient Attender: Kelli Mcmanus NPReferrer: Kelli castro SUPERVISOR POLE YARD 06/04/2020 01:14:00 PM [facility] - 06/04/2020 01:47:00 PM [facility] Outpatient Attender: JEANETTE DURANTConsultant: Kelli Araiza P 05/28/2020 08:54:00 AM EST - 05/28/2020 08:54:00 AM [facility] Outpatient Attender: JEANETTE DURANTConsultant: Kelli Araiza P 05/20/2020 11:55:00 AM [facility] - 05/20/2020 11:55:00 AM [facility] Outpatient Attender: JEANETTE DURANTConsultant: Kelli Araiza P 05/08/2020 07:54:00 AM [facility] - 05/08/2020 07:54:00 AM [facility] Outpatient Attender: Kelli Mcmanus NPReferrer: Kelli castro SUPERVISOR POLE YARD 05/07/2020 10:55:00 AM EST - 05/07/2020 11:28:00 AM EST [facility] Outpatient Attender: ARELI TRIVEDI PAAt tender: JEANETTE DURANTConsultant: Kelli Mcmanus NP 05/06/2020 10:34:00 AM EST - 05/06/2020 10:34:00 AM [facility] Outpatient Attender: [id number] [facility] 05/06/2020 10:00:00 AM EST [facility] Outpatient Attender: JEANETTE DURANTConsultant: Kelli Araiza P 05/03/2020 08:55:00 AM EST - 05/03/2020 08:55:00 AM EST [facility] Outpatient Attender: Kelli Mcmanus NPReferrer: Kelli castro NP 04/24/2020 11:39:00 AM EST - 04/24/2020 11:50:00 AM EST [facility] Outpatient Attender: CATARINO CASTROORNConsultant: Kelli castro NP 04/18/2020 12:36:00 PM EST - 04/18/2020 12:36:00 PM [facility] Outpatient Attender: Kelli Mcmanus NP 04/04/2020 10:35:00 AM [facility] R79.89 [facility] R79.89 Outpatient Attender: Kelli Mcmanus NPReferrer: Kelli castro NP 04/04/2020 10:04:00 AM EST - 04/04/2020 10:33:00 AM EST [facility] Outpatient Attender: Kelli Mcmanus NPReferrer: Kelli castro NP 03/13/2020 09:54:00 AM EDT - 03/13/2020 10:40:00 AM EDT [facility] Outpatient Attender: Eb MARTEL 03/04/2020 04: 45:00 PM EDT Neoplasm of uncertain behavior of skin [facility] Neoplasm of uncertain behavior of skin Outpatient Attender: PRIMITIVO MARTEL TECH M-LAB.NONPAR 03/04/2020 02:51:00 PM EDT - 03/06/2020 12:00:00 AM EDT [facility] NONPAR Preadmit Attender: [id number] Naveed Hannon MD 020 12:00:00 AM EDT K42.9/39250 [facility] K42.9/60007 Outpatient Attender: Elton Jennings MD 02/12/2020 02:20:00 AM EDT 941 Eval [facility] 941 Eval Inpatient Attender: Alcon Colon MDAttender: MAGDA [facility] .Admitter: Alcon Colon 02/12/2020 12:00:00 AM EDT - 02/16/2020 11:37:00 AM EDT 941 Eval [facility] 941 Eval Patient discharged. Outpatient Attender: Mirian Araiza PAdmitter: Alcon Colon MDConsultant: Alcon Colon 02/12/2020 12:00:00 AM EDT 941 Eval [facility] 941 Eval Outpatient Attender: Mirian Araiza PAdmitter: Alcon Colon MDConsultant: Alcon Colon 02/12/2020 12:00:00 AM EDT 941 Eval [facility] 941 Eval Outpatient Attender: Alcon Colon MDAdmit ter: Alcon Colon MDConsultant: Alcon Colon 02/12/2020 12:00:00 AM EDT 941 Eval [facility] 941 Eval Outpatient Attender: Mirian Araiza PAdmitter: Alcon Colon MDConsultant: Alcon Colon 02/12/2020 12:00:00 AM EDT 941 Eval [facility] 941 Eval Outpatient 02/07/2020 06:55:00 PM EDT [facility] Outpatient Attender: Johanna melissa FNPAttender: PHILLIP HODGSON MDReferrer: Kalyan Richardson MDConsultant: Kelli Mcmanus SUPERVISOR POLE YARD 02/07/2020 06:08:00 PM EDT - 02/08/2020 12:00:00 PM EDT [facility] Patient discharged. Outpatient Attender: Kalyan Richardson MDConsultant: Kelli valladares SUPERVISOR POLE YARD 02/06/2020 02:30:00 PM EDT - 02/06/2020 06:15:00 PM EDT [facility] Patient discharged. Outpatient Attender: Kalyan Richardson MD Family Practice 02/06/2020 1 1:30:00 AM EDT [facility] ([facility]) Outpatient Attender: Kalyan Richardson MDConsultant: Kelli valladares SUPERVISOR POLE YARD 02/06/2020 10:51:00 AM EDT - 02/06/2020 10:51:00 AM EDT [facility] Emergency Attender: Skip Rutherford MD 11/2019 08:55:00 PM EDT - 02/06/2020 01:37:00 AM EDT ABD PAIN, BACK PAIN [facility] ABD PAIN, BACK PAIN Patient discharged. Outpatient Attender: [id number] Naveed Hannon MD 020 03:19:00 PM EDT PRE OP/K42.9 [facility] PRE OP/K42.9 Outpatient Attender: [id number] Naveed Hannon MDReferrer: Veda Mcmanus SUPERVISOR POLE YARD 02/01/2020 02:31:00 PM EDT - 02/01/2020 03:13:00 PM EDT [facility] Outpatient Attender: Kelli Mcmanus NPReferrer: Kelli castro SUPERVISOR POLE YARD 12/20/2019 10:19:00 AM EDT [facility] Outpatient Attender: Kelli Mcmanus NP 11/16/2019 07: 30:00 PM EDT Snoring, Excessive Daytime Sleepiness, Anpea, HTN [facility] Snoring, Excessive Daytime Sleepiness, A npea, HTN Outpatient Attender: CHANCE WELCH MD Main Office 11/09/2019 01:15:00 PM EDT [facility] ([facility] Outpatient Attender: Kelli Mcmanus NPReferrer: Kelli castro SUPERVISOR POLE YARD 10/19/2019 09:56:00 AM EDT - 10/19/2019 10:31:00 AM EDT [facility] Outpatient Attender: Kelli Mcmanus NP 07/31/2019 11:05:00 AM EST Z00.00,I10 [facility] Z00.00,I10 Outpatient Attender: Kelli Mcmanus NPReferrer: Kelli castro SUPERVISOR POLE YARD 07/12/2019 09:48:00 AM EST - 07/12/2019 10:15:00 AM EST [facility] Emergency Attender: ANTONIA FRAZIER MDConsultant: Kelli Mcmanus NP 05/29/2019 01:24:00 PM EST - 05/29/2019 04:17:00 PM EST [facility] Patient discharged. Immunizations Vaccine Date Status Description Data Source(s) IIV3. This is one of two codes replacing CVX 15, which is being retired. 03/13/2020 12:00:00 AM EDT completed influenza vaccine, inactivated [facility] IIV3. This is one of two codes replacing CVX 15, which is being retired. 03/13/2020 12:00:00 AM EDT completed influenza vaccine, inactivated [facility] IIV3. This is one of two codes replacing CVX 15, which is being retired. 03/13/2020 12:00:00 AM EDT completed influenza vaccine, inactivated [facility] IIV3. This is one of two codes replacing CVX 15, which is being retired. 03/13/2020 12:00:00 AM EDT completed influenza vaccine, inactivated [facility] IIV3. This is one of two codes replacing CVX 15, which is being retired. 03/13/2020 12:00:00 AM EDT completed influenza vaccine, inactivated [facility] IIV3. This is one of two codes replacing CVX 15, which is being retired. 03/13/2020 12:00:00 AM EDT completed influenza vaccine, [facility] Medications Medication Brand Name Start Date Product Form Dose Route Admi nistrative Instructions Pharmacy Instructions Status Indications Reaction Description Data Source(s) Levofloxacin 750 MG Oral Tablet Levofloxacin 06/30/2020 04:59:10 PM EST 750 MG active [facility] Metronidazole 500 MG Oral Tablet Metronidazole (Flagyl ) 500 mg tablet Metronidazole (Flagyl) 500 mg tablet 06/30/2020 04:59:10 PM EST 500 MG active [facility] 875-125 mg 06/29/2020 12:00:00 AM EST tablet 20 TAKE ONE TABLET BY MOUTH TWICE A DAY FOR 10 DAYS TAKE ONE TABLET BY MOUTH TWICE A DAY FOR 10 DAYS SOLD: 06/29/2020 [facility] Amoxicillin 875 MG / Clavulanate 125 MG Oral Tablet Am oxicillin-Pot Clavulanate Amoxicillin-Pot Clavulanate 06/21/2020 09:36:59 AM EST 1 TAB active [facility] Amoxicillin 875 MG / Clavulanate 125 MG Oral Tablet Am oxicillin-Pot Clavulanate Amoxicillin-Pot Clavulanate 06/21/2020 09:36:59 AM EST 1 TAB completed [facility] Testosterone Cypionate 06/04/2020 02:26:38 PM EST 200 MG active [facility] Testosterone Cypionate 06/04/2020 02:26:38 PM EST 200 MG active [facility] Clonazepam 0.5 MG Oral Tablet Clonazepam 06/04/2020 02:26:33 PM EST 0.5 MG active [facility] Clonazepam 0.5 MG Oral Tablet Clonazepam 06/04/2020 02:26:33 PM EST 0.5 MG active [facility] olanzapine 10 MG Oral Tablet Olanzapine Olanzapine 06/04/2020 01: 20:44 PM EST 20 MG active [facility] olanzapine 10 MG Oral Tablet Olanzapine Olanzapine 06/04/2020 01: 20:44 PM EST 20 MG active [facility] olanzapine 10 MG Oral Tablet Olanzapine Olanzapine 06/04/2020 01: 20:44 PM EST 20 MG active [facility] Clonazepam 0.5 MG Oral Tablet Clonazepam 05/07/2020 01:11:14 PM EST 0.5 MG completed [facility] Clonazepam 0.5 MG Oral Tablet Clonazepam 05/07/2020 01:11:14 PM EST 0.5 MG completed [facility] Clonazepam 0.5 MG Oral Tablet Clonazepam 05/07/2020 01:11:14 PM EST 0.5 MG active [facility] Testosterone Cypionate 05/07/2020 01:04:59 PM EST 200 MG completed [facility] Testosterone Cypionate 05/07/2020 01:04:59 PM EST 200 MG completed [facility] Testosterone Cypionate 05/07/2020 01:04:59 PM EST 200 MG active [facility] Sertraline 100 MG Oral Tablet Sertraline 05/07/2020 11:19:59 AM EST 100 MG active [facility] Sertraline 100 MG Oral Tablet Sertraline 05/07/2020 11:19:59 AM EST 100 MG active [facility] Sertraline 100 MG Oral Tablet Sertraline 05/07/2020 11:19:59 AM EST 100 MG active [facility] Sertraline 100 MG Oral Tablet Sertraline 05/07/2020 11:19:59 AM EST 100 MG active [facility] Sertraline 50 MG Oral Tablet Sertraline 05/07/2020 11:19:08 AM EST 50 MG active [facility] Sertraline 50 MG Oral Tablet Sertraline 05/07/2020 11:19:08 AM EST 50 MG active [facility] Sertraline 50 MG Oral Tablet Sertraline 05/07/2020 11:19:08 AM EST 50 MG active [facility] Sertraline 50 MG Oral Tablet Sertraline 05/07/2020 11:19:08 AM EST 50 MG active [facility] olanzapine 10 MG Oral Tablet Olanzapine Olanzapine 05/07/2020 11: 17:30 AM EST 10 MG active [facility] olanzapine 10 MG Oral Tablet Olanzapine Olanzapine 05/07/2020 11: 17:30 AM EST 10 MG completed [facility] olanzapine 10 MG Oral Tablet Olanzapine Olanzapine 05/07/2020 11: 17:30 AM EST 10 MG completed [facility] olanzapine 10 MG Oral Tablet Olanzapine Olanzapine 05/07/2020 11: 17:30 AM EST 10 MG completed [facility] Testosterone Cypionate 04/11/2020 09:46:30 AM EST 200 MG completed [facility] Testosterone Cypionate 04/11/2020 09:46:30 AM EST 200 MG completed [facility] Testosterone Cypionate 04/11/2020 09:46:30 AM EST 200 MG completed [facility] Testosterone Cypionate 04/11/2020 09:46:30 AM EST 200 MG active [facility] Testosterone Cypionate 04/11/2020 09:46:30 AM EST 200 MG active [facility] Syringe (Disposable) (Bd Luer-Yanira Tip Control Syring) 10 mL syringe 04/11/2020 09:46:20 AM EST 1 EACH active [facility] Syringe (Disposable) (Bd Luer-Yanira Tip Control Syring) 10 mL syringe 04/11/2020 09:46:20 AM EST 1 EACH active [facility] Syringe (Disposable) (Bd Luer-Yanira Tip Control Syring) 10 mL syringe 04/11/2020 09:46:20 AM EST 1 EACH active [facility] Syringe (Disposable) (Bd Luer-Yanira Tip Control Syring) 10 mL syringe 04/11/2020 09:46:20 AM EST 1 EACH completed [facility] Syringe (Disposable) (Bd Luer-Yanira Tip Control Syring) 10 mL syringe 04/11/2020 09:46:20 AM EST 1 EACH active [facility] Clonazepam 0.5 MG Oral Tablet Clonazepam 04/11/2020 09:33:55 AM EST 0.5 MG active [facility] Clonazepam 0.5 MG Oral Tablet Clonazepam 04/11/2020 09:33:55 AM EST 0.5 MG completed [facility] Clonazepam 0.5 MG Oral Tablet Clonazepam 04/11/2020 09:33:55 AM EST 0.5 MG active [facility] Clonazepam 0.5 MG Oral Tablet Clonazepam 04/11/2020 09:33:55 AM EST 0.5 MG completed [facility] Clonazepam 0.5 MG Oral Tablet Clonazepam 04/11/2020 09:33:55 AM EST 0.5 MG completed [facility] Testosterone Cypionate 04/04/2020 10:27:13 AM EST 200 MG active [facility] Testosterone Cypionate 04/04/2020 10:27:13 AM EST 200 MG completed [facility] Testosterone Cypionate 04/04/2020 10:27:13 AM EST 200 MG completed [facility] Testosterone Cypionate 04/04/2020 10:27:13 AM EST 200 MG completed [facility] Testosterone Cypionate 04/04/2020 10:27:13 AM EST 200 MG completed [facility] Testosterone Cypionate 04/04/2020 10:27:13 AM EST 200 MG completed [facility] Sertraline 100 MG Oral Tablet Sertraline 04/04/2020 10:24:47 AM EST 100 MG completed [facility] Sertraline 100 MG Oral Tablet Sertraline 04/04/2020 10:24:47 AM EST 100 MG active [facility] Sertraline 100 MG Oral Tablet Sertraline 04/04/2020 10:24:47 AM EST 100 MG completed [facility] Sertraline 100 MG Oral Tablet Sertraline 04/04/2020 10:24:47 AM EST 100 MG completed [facility] Sertraline 100 MG Oral Tablet Sertraline 04/04/2020 10:24:47 AM EST 100 MG completed [facility] Sertraline 100 MG Oral Tablet Sertraline 04/04/2020 10:24:47 AM EST 100 MG active [facility] Alprazolam 0.5 MG Oral Tablet Alprazolam 03/18/2020 03:36:09 PM EDT 0.5 MG completed [facility] Alprazolam 0.5 MG Oral Tablet Alprazolam 03/18/2020 03:36:09 PM EDT 0.5 MG completed [facility] Alprazolam 0.5 MG Oral Tablet Alprazolam 03/18/2020 03:36:09 PM EDT 0.5 MG completed [facility] Alprazolam 0.5 MG Oral Tablet Alprazolam 03/18/2020 03:36:09 PM EDT 0.5 MG active [facility] Alprazolam 0.5 MG Oral Tablet Alprazolam 03/18/2020 03:36:09 PM EDT 0.5 MG completed [facility] Alprazolam 0.5 MG Oral Tablet Alprazolam 03/18/2020 03:36:09 PM EDT 0.5 MG completed [facility] Alprazolam 0.5 MG Oral Tablet Alprazolam 03/18/2020 03:24:41 PM EDT 0.5 MG completed [facility] Alprazolam 0.5 MG Oral Tablet Alprazolam 03/18/2020 03:24:41 PM EDT 0.5 MG completed [facility] Alprazolam 0.5 MG Oral Tablet Alprazolam 03/18/2020 03:24:41 PM EDT 0.5 MG completed [facility] Alprazolam 0.5 MG Oral Tablet Alprazolam 03/18/2020 03:24:41 PM EDT 0.5 MG completed [facility] Alprazolam 0.5 MG Oral Tablet Alprazolam 03/18/2020 03:24:41 PM EDT 0.5 MG completed [facility] Alprazolam 0.5 MG Oral Tablet Alprazolam 03/18/2020 03:24:41 PM EDT 0.5 MG completed [facility] Prazosin 1 MG Oral Capsule Prazosin 03/18/2020 03:23:46 PM EDT 1 MG active [facility] Prazosin 1 MG Oral Capsule Prazosin 03/18/2020 03:23:46 PM EDT 1 MG active [facility] Prazosin 1 MG Oral Capsule Prazosin 03/18/2020 03:23:46 PM EDT 1 MG active [facility] Prazosin 1 MG Oral Capsule Prazosin 03/18/2020 03:23:46 PM EDT 1 MG active [facility] Prazosin 1 MG Oral Capsule Prazosin 03/18/2020 03:23:46 PM EDT 1 MG active [facility] Prazosin 1 MG Oral Capsule Prazosin 03/18/2020 03:23:46 PM EDT 1 MG active [facility] Sertraline 50 MG Oral Tablet Sertraline 03/13/2020 10:50:28 AM EDT 50 MG completed [facility] Sertraline 50 MG Oral Tablet Sertraline 03/13/2020 10:50:28 AM EDT 50 MG completed [facility] Sertraline 50 MG Oral Tablet Sertraline 03/13/2020 10:50:28 AM EDT 50 MG completed [facility] Sertraline 50 MG Oral Tablet Sertraline 03/13/2020 10:50:28 AM EDT 50 MG completed [facility] Sertraline 50 MG Oral Tablet Sertraline 03/13/2020 10:50:28 AM EDT 50 MG completed [facility] Sertraline 50 MG Oral Tablet Sertraline 03/13/2020 10:50:28 AM EDT 50 MG completed [facility] Prazosin 1 MG Oral Capsule Prazosin 03/13/2020 10:50:09 AM EDT 1 MG completed [facility] Prazosin 1 MG Oral Capsule Prazosin 03/13/2020 10:50:09 AM EDT 1 MG completed [facility] Prazosin 1 MG Oral Capsule Prazosin 03/13/2020 10:50:09 AM EDT 1 MG completed [facility] Prazosin 1 MG Oral Capsule Prazosin 03/13/2020 10:50:09 AM EDT 1 MG completed [facility] Prazosin 1 MG Oral Capsule Prazosin 03/13/2020 10:50:09 AM EDT 1 MG completed [facility] Prazosin 1 MG Oral Capsule Prazosin 03/13/2020 10:50:09 AM EDT 1 MG completed [facility] olanzapine 10 MG Oral Tablet Olanzapine Olanzapine 03/13/2020 10: 49:50 AM EDT 20 MG completed [facility] olanzapine 10 MG Oral Tablet Olanzapine Olanzapine 03/13/2020 10: 49:50 AM EDT 20 MG active [facility] olanzapine 10 MG Oral Tablet Olanzapine Olanzapine 03/13/2020 10: 49:50 AM EDT 20 MG completed [facility] olanzapine 10 MG Oral Tablet Olanzapine Olanzapine 03/13/2020 10: 49:50 AM EDT 20 MG active [facility] olanzapine 10 MG Oral Tablet Olanzapine Olanzapine 03/13/2020 10: 49:50 AM EDT 20 MG completed [facility] olanzapine 10 MG Oral Tablet Olanzapine Olanzapine 03/13/2020 10: 49:50 AM EDT 20 MG completed [facility] Divalproex Sodium 500 MG Delayed Release Oral Tablet Divalpr oex 03/13/2020 10:49:22 AM EDT 500 MG active [facility] Divalproex Sodium 500 MG Delayed Release Oral Tablet Divalpr oex 03/13/2020 10:49:22 AM EDT 500 MG active [facility] Divalproex Sodium 500 MG Delayed Release Oral Tablet Divalpr oex 03/13/2020 10:49:22 AM EDT 500 MG active [facility] Divalproex Sodium 500 MG Delayed Release Oral Tablet Divalpr oex 03/13/2020 10:49:22 AM EDT 500 MG active [facility] Divalproex Sodium 500 MG Delayed Release Oral Tablet Divalpr oex 03/13/2020 10:49:22 AM EDT 500 MG active [facility] Divalproex Sodium 500 MG Delayed Release Oral Tablet Divalpr oex 03/13/2020 10:49:22 AM EDT 500 MG active [facility] Divalproex Sodium 500 MG Delayed Release Oral Tablet Divalpr oex 03/13/2020 10:06:36 AM EDT 500 MG completed [facility] Divalproex Sodium 500 MG Delayed Release Oral Tablet Divalpr oex 03/13/2020 10:06:36 AM EDT 500 MG completed [facility] Divalproex Sodium 500 MG Delayed Release Oral Tablet Divalpr oex 03/13/2020 10:06:36 AM EDT 500 MG completed [facility] Divalproex Sodium 500 MG Delayed Release Oral Tablet Divalpr oex 03/13/2020 10:06:36 AM EDT 500 MG completed [facility] Divalproex Sodium 500 MG Delayed Release Oral Tablet Divalpr oex 03/13/2020 10:06:36 AM EDT 500 MG completed [facility] Divalproex Sodium 500 MG Delayed Release Oral Tablet Divalpr oex 03/13/2020 10:06:36 AM EDT 500 MG completed [facility] Divalproex Sodium 500 MG Delayed Release Oral Tablet Divalpr oex 03/13/2020 10:06:36 AM EDT 500 MG completed [facility] Prazosin 1 MG Oral Capsule Prazosin 03/13/2020 10:06:14 AM EDT completed [facility] Prazosin 1 MG Oral Capsule Prazosin 03/13/2020 10:06:14 AM EDT completed [facility] Prazosin 1 MG Oral Capsule Prazosin 03/13/2020 10:06:14 AM EDT completed [facility] Prazosin 1 MG Oral Capsule Prazosin 03/13/2020 10:06:14 AM EDT completed [facility] Prazosin 1 MG Oral Capsule Prazosin 03/13/2020 10:06:14 AM EDT completed [facility] Prazosin 1 MG Oral Capsule Prazosin 03/13/2020 10:06:14 AM EDT completed [facility] Prazosin 1 MG Oral Capsule Prazosin 03/13/2020 10:06:14 AM EDT completed [facility] olanzapine 10 MG Oral Tablet Olanzapine Olanzapine 03/13/2020 10: 06:01 AM EDT completed [facility] olanzapine 10 MG Oral Tablet Olanzapine Olanzapine 03/13/2020 10: 06:01 AM EDT completed [facility] olanzapine 10 MG Oral Tablet Olanzapine Olanzapine 03/13/2020 10: 06:01 AM EDT completed [facility] olanzapine 10 MG Oral Tablet Olanzapine Olanzapine 03/13/2020 10: 06:01 AM EDT completed [facility] olanzapine 10 MG Oral Tablet Olanzapine Olanzapine 03/13/2020 10: 06:01 AM EDT completed [facility] olanzapine 10 MG Oral Tablet Olanzapine Olanzapine 03/13/2020 10: 06:01 AM EDT completed [facility] olanzapine 10 MG Oral Tablet Olanzapine Olanzapine 03/13/2020 10: 06:01 AM EDT completed [facility] Sertraline 50 MG Oral Tablet Sertraline 03/13/2020 10:05:33 AM EDT completed [facility] Sertraline 50 MG Oral Tablet Sertraline 03/13/2020 10:05:33 AM EDT completed [facility] Sertraline 50 MG Oral Tablet Sertraline 03/13/2020 10:05:33 AM EDT completed [facility] Sertraline 50 MG Oral Tablet Sertraline 03/13/2020 10:05:33 AM EDT completed [facility] Sertraline 50 MG Oral Tablet Sertraline 03/13/2020 10:05:33 AM EDT completed [facility] Sertraline 50 MG Oral Tablet Sertraline 03/13/2020 10:05:33 AM EDT completed [facility] Sertraline 50 MG Oral Tablet Sertraline 03/13/2020 10:05:33 AM EDT completed [facility] Qd (3yr up)(PF) (flu vac [id number] 36mos up(P F)) 03/13/2020 09:54:44 AM EDT 60 MCG [facility]PF[facility] (flu vac [id number] 36mos up(P F)) 03/13/2020 09:54:44 AM EDT 60 MCG completed [facility] (3yr up)(PF) (flu vac [id number] 36mos up(P F)) 03/13/2020 09:54:44 AM EDT 60 MCG completed [facility] Afluria Qd (3yr up)(PF) (flu vac [id number] 36mos up(P F)) 03/13/2020 09:54:44 AM EDT 60 MCG completed [facility] Afluria Qd (3yr up)(PF) (flu vac [id number] 36mos up(P F)) 03/13/2020 09:54:44 AM EDT [address] [facility] Qd 2019-(3yr up)(PF) (flu vac [id number] 36mos up(P F)) 03/13/2020 09:54:44 AM EDT 60 MCG completed [facility] (3yr up)(PF) (flu vac [id number] 36mos up(P F)) 03/13/2020 09:54:44 AM EDT 60 MCG completed [facility] Testosterone Cypionate 02/27/2020 04:07:34 PM EDT 300 MG completed [facility] Testosterone Cypionate 02/27/2020 04:07:34 PM EDT 300 MG completed [facility] Testosterone Cypionate 02/27/2020 04:07:34 PM EDT 300 MG completed [facility] Testosterone Cypionate 02/27/2020 04:07:34 PM EDT 300 MG completed [facility] Testosterone Cypionate 02/27/2020 04:07:34 PM EDT 300 MG active [facility] Testosterone Cypionate 02/27/2020 04:07:34 PM EDT 300 MG completed [facility] Testosterone Cypionate 02/27/2020 04:07:34 PM EDT 300 MG completed [facility] Alprazolam 0.5 MG Oral Tablet Alprazolam 02/21/2020 08:22:10 AM EDT 0.5 MG completed [facility] Alprazolam 0.5 MG Oral Tablet Alprazolam 02/21/2020 08:22:10 AM EDT 0.5 MG active [facility] Alprazolam 0.5 MG Oral Tablet Alprazolam 02/21/2020 08:22:10 AM EDT 0.5 MG completed [facility] Alprazolam 0.5 MG Oral Tablet Alprazolam 02/21/2020 08:22:10 AM EDT 0.5 MG completed [facility] Alprazolam 0.5 MG Oral Tablet Alprazolam 02/21/2020 08:22:10 AM EDT 0.5 MG completed [facility] Alprazolam 0.5 MG Oral Tablet Alprazolam 02/21/2020 08:22:10 AM EDT 0.5 MG completed [facility] Alprazolam 0.5 MG Oral Tablet Alprazolam 02/21/2020 08:22:10 AM EDT 0.5 MG completed [facility] Syringe (Disposable) (Bd Luer-Yanira Tip Control Syring) 10 mL syringe 02/06/2020 10:06:04 AM EDT 1 EACH completed [facility] Syringe (Disposable) (Bd Luer-Yanira Tip Control Syring) 10 mL syringe 02/06/2020 10:06:04 AM EDT 1 EACH active [facility] Syringe (Disposable) (Bd Luer-Yanira Tip Control Syring) 10 mL syringe 02/06/2020 10:06:04 AM EDT 1 EACH completed [facility] Syringe (Disposable) (Bd Luer-Yanira Tip Control Syring) 10 mL syringe 02/06/2020 10:06:04 AM EDT 1 EACH completed [facility] Syringe (Disposable) (Bd Luer-Yanira Tip Control Syring) 10 mL syringe 02/06/2020 10:06:04 AM EDT 1 EACH active [facility] Syringe (Disposable) (Bd Luer-Yanira Tip Control Syring) 10 mL syringe 02/06/2020 10:06:04 AM EDT 1 EACH completed [facility] Syringe (Disposable) (Bd Luer-Yanira Tip Control Syring) 10 mL syringe 02/06/2020 10:06:04 AM EDT 1 EACH completed [facility] Citalopram 20 MG Oral Tablet Citalopram 02/06/2020 10:05:46 AM EDT 40 MG completed [facility] Citalopram 20 MG Oral Tablet Citalopram 02/06/2020 10:05:46 AM EDT 40 MG completed [facility] Citalopram 20 MG Oral Tablet Citalopram 02/06/2020 10:05:46 AM EDT 40 MG completed [facility] Citalopram 20 MG Oral Tablet Citalopram 02/06/2020 10:05:46 AM EDT 40 MG completed [facility] Citalopram 20 MG Oral Tablet Citalopram 02/06/2020 10:05:46 AM EDT 40 MG completed [facility] Citalopram 20 MG Oral Tablet Citalopram 02/06/2020 10:05:46 AM EDT 40 MG completed [facility] Citalopram 20 MG Oral Tablet Citalopram 02/06/2020 10:05:46 AM EDT 40 MG completed [facility] Testosterone Cypionate 02/06/2020 10:04:59 AM EDT 300 MG completed [facility] Testosterone Cypionate 02/06/2020 10:04:59 AM EDT 300 MG completed [facility] Testosterone Cypionate 02/06/2020 10:04:59 AM EDT 300 MG completed [facility] Testosterone Cypionate 02/06/2020 10:04:59 AM EDT 300 MG completed [facility] Testosterone Cypionate 02/06/2020 10:04:59 AM EDT 300 MG completed [facility] Testosterone Cypionate 02/06/2020 10:04:59 AM EDT 300 MG completed [facility] Testosterone Cypionate 02/06/2020 10:04:59 AM EDT 300 MG completed [facility] Divalproex Sodium 500 MG Delayed Release Oral Tablet Divalpr oex 01/25/2020 09:51:24 AM EDT 500 MG completed [facility] Divalproex Sodium 500 MG Delayed Release Oral Tablet Divalpr oex 01/25/2020 09:51:24 AM EDT 500 MG completed [facility] Divalproex Sodium 500 MG Delayed Release Oral Tablet Divalpr oex 01/25/2020 09:51:24 AM EDT 500 MG active [facility] Divalproex Sodium 500 MG Delayed Release Oral Tablet Divalpr oex 01/25/2020 09:51:24 AM EDT 500 MG active [facility] Divalproex Sodium 500 MG Delayed Release Oral Tablet Divalpr oex 01/25/2020 09:51:24 AM EDT 500 MG completed [facility] Divalproex Sodium 500 MG Delayed Release Oral Tablet Divalpr oex 01/25/2020 09:51:24 AM EDT 500 MG completed [facility] Divalproex Sodium 500 MG Delayed Release Oral Tablet Divalpr oex 01/25/2020 09:51:24 AM EDT 500 MG completed [facility] Divalproex Sodium 500 MG Delayed Release Oral Tablet Divalpr oex 01/25/2020 09:51:24 AM EDT 500 MG completed [facility] Divalproex Sodium 500 MG Delayed Release Oral Tablet Divalpr oex 01/25/2020 09:51:24 AM EDT 500 MG completed [facility] Divalproex Sodium 500 MG Delayed Release Oral Tablet Divalpr oex 01/25/2020 09:48:58 AM EDT 500 MG completed [facility] Divalproex Sodium 500 MG Delayed Release Oral Tablet Divalpr oex 01/25/2020 09:48:58 AM EDT 500 MG completed [facility] Divalproex Sodium 500 MG Delayed Release Oral Tablet Divalpr oex 01/25/2020 09:48:58 AM EDT 500 MG completed [facility] Divalproex Sodium 500 MG Delayed Release Oral Tablet Divalpr oex 01/25/2020 09:48:58 AM EDT 500 MG completed [facility] Divalproex Sodium 500 MG Delayed Release Oral Tablet Divalpr oex 01/25/2020 09:48:58 AM EDT 500 MG completed [facility] Divalproex Sodium 500 MG Delayed Release Oral Tablet Divalpr oex 01/25/2020 09:48:58 AM EDT 500 MG completed [facility] Divalproex Sodium 500 MG Delayed Release Oral Tablet Divalpr oex 01/25/2020 09:48:58 AM EDT 500 MG completed [facility] Divalproex Sodium 500 MG Delayed Release Oral Tablet Divalpr oex 01/25/2020 09:48:58 AM EDT 500 MG completed [facility] Divalproex Sodium 500 MG Delayed Release Oral Tablet Divalpr oex 01/25/2020 09:48:58 AM EDT 500 MG completed [facility] Testosterone Cypionate 01/24/2020 07:27:26 AM EDT 300 MG completed [facility] Testosterone Cypionate 01/24/2020 07:27:26 AM EDT 300 MG active [facility] Testosterone Cypionate 01/24/2020 07:27:26 AM EDT 300 MG completed [facility] Testosterone Cypionate 01/24/2020 07:27:26 AM EDT 300 MG completed [facility] Testosterone Cypionate 01/24/2020 07:27:26 AM EDT 300 MG completed [facility] Testosterone Cypionate 01/24/2020 07:27:26 AM EDT 300 MG completed [facility] Testosterone Cypionate 01/24/2020 07:27:26 AM EDT 300 MG completed [facility] Testosterone Cypionate 01/24/2020 07:27:26 AM EDT 300 MG completed [facility] Testosterone Cypionate 01/24/2020 07:27:26 AM EDT 300 MG completed [facility] Syringe (Disposable) (Bd Luer-Yanira Tip Control Syring) 10 mL syringe 01/24/2020 07:27:18 AM EDT 1 EACH completed [facility] Syringe (Disposable) (Bd Luer-Yanira Tip Control Syring) 10 mL syringe 01/24/2020 07:27:18 AM EDT 1 EACH completed [facility] Syringe (Disposable) (Bd Luer-Yanira Tip Control Syring) 10 mL syringe 01/24/2020 07:27:18 AM EDT 1 EACH completed [facility] Syringe (Disposable) (Bd Luer-Yanira Tip Control Syring) 10 mL syringe 01/24/2020 07:27:18 AM EDT 1 EACH completed [facility] Syringe (Disposable) (Bd Luer-Yanira Tip Control Syring) 10 mL syringe 01/24/2020 07:27:18 AM EDT 1 EACH completed [facility] Syringe (Disposable) (Bd Luer-Yanira Tip Control Syring) 10 mL syringe 01/24/2020 07:27:18 AM EDT 1 EACH active [facility] Syringe (Disposable) (Bd Luer-Yanira Tip Control Syring) 10 mL syringe 01/24/2020 07:27:18 AM EDT 1 EACH completed [facility] Syringe (Disposable) (Bd Luer-Yanira Tip Control Syring) 10 mL syringe 01/24/2020 07:27:18 AM EDT 1 EACH active [facility] Syringe (Disposable) (Bd Luer-Yanira Tip Control Syring) 10 mL syringe 01/24/2020 07:27:18 AM EDT 1 EACH completed [facility] Alprazolam 0.5 MG Oral Tablet Alprazolam 01/23/2020 04:11:06 PM EDT 0.5 MG completed [facility] Alprazolam 0.5 MG Oral Tablet Alprazolam 01/23/2020 04:11:06 PM EDT 0.5 MG active [facility] Alprazolam 0.5 MG Oral Tablet Alprazolam 01/23/2020 04:11:06 PM EDT 0.5 MG completed [facility] Alprazolam 0.5 MG Oral Tablet Alprazolam 01/23/2020 04:11:06 PM EDT 0.5 MG completed [facility] Alprazolam 0.5 MG Oral Tablet Alprazolam 01/23/2020 04:11:06 PM EDT 0.5 MG active [facility] Alprazolam 0.5 MG Oral Tablet Alprazolam 01/23/2020 04:11:06 PM EDT 0.5 MG completed [facility] Alprazolam 0.5 MG Oral Tablet Alprazolam 01/23/2020 04:11:06 PM EDT 0.5 MG completed [facility] Alprazolam 0.5 MG Oral Tablet Alprazolam 01/23/2020 04:11:06 PM EDT 0.5 MG completed [facility] Alprazolam 0.5 MG Oral Tablet Alprazolam 01/23/2020 04:11:06 PM EDT 0.5 MG completed [facility] Lisinopril 40 MG Oral Tablet Lisinopril 01/22/2020 08:50:17 AM EDT 40 MG active [facility] Lisinopril 40 MG Oral Tablet Lisinopril 01/22/2020 08:50:17 AM EDT 40 MG active [facility] Lisinopril 40 MG Oral Tablet Lisinopril 01/22/2020 08:50:17 AM EDT 40 MG active [facility] Lisinopril 40 MG Oral Tablet Lisinopril 01/22/2020 08:50:17 AM EDT 40 MG active [facility] Lisinopril 40 MG Oral Tablet Lisinopril 01/22/2020 08:50:17 AM EDT 40 MG active [facility] Lisinopril 40 MG Oral Tablet Lisinopril 01/22/2020 08:50:17 AM EDT 40 MG active [facility] Lisinopril 40 MG Oral Tablet Lisinopril 01/22/2020 08:50:17 AM EDT 40 MG active [facility] Lisinopril 40 MG Oral Tablet Lisinopril 01/22/2020 08:50:17 AM EDT 40 MG active [facility] Lisinopril 40 MG Oral Tablet Lisinopril 01/22/2020 08:50:17 AM EDT 40 MG active [facility] Citalopram 20 MG Oral Tablet Citalopram 01/22/2020 08:50:13 AM EDT 40 MG active [facility] Citalopram 20 MG Oral Tablet Citalopram 01/22/2020 08:50:13 AM EDT 40 MG completed [facility] Citalopram 20 MG Oral Tablet Citalopram 01/22/2020 08:50:13 AM EDT 40 MG completed [facility] Citalopram 20 MG Oral Tablet Citalopram 01/22/2020 08:50:13 AM EDT 40 MG completed [facility] Citalopram 20 MG Oral Tablet Citalopram 01/22/2020 08:50:13 AM EDT 40 MG completed [facility] Citalopram 20 MG Oral Tablet Citalopram 01/22/2020 08:50:13 AM EDT 40 MG active [facility] Citalopram 20 MG Oral Tablet Citalopram 01/22/2020 08:50:13 AM EDT 40 MG completed [facility] Citalopram 20 MG Oral Tablet Citalopram 01/22/2020 08:50:13 AM EDT 40 MG completed [facility] Citalopram 20 MG Oral Tablet Citalopram 01/22/2020 08:50:13 AM EDT 40 MG completed [facility] Alprazolam 0.5 MG Oral Tablet Alprazolam 12/29/2019 07:41:20 AM EDT 0.5 MG completed [facility] Alprazolam 0.5 MG Oral Tablet Alprazolam 12/29/2019 07:41:20 AM EDT 0.5 MG completed [facility] Alprazolam 0.5 MG Oral Tablet Alprazolam 12/29/2019 07:41:20 AM EDT 0.5 MG completed [facility] Alprazolam 0.5 MG Oral Tablet Alprazolam 12/29/2019 07:41:20 AM EDT 0.5 MG completed [facility] Alprazolam 0.5 MG Oral Tablet Alprazolam 12/29/2019 07:41:20 AM EDT 0.5 MG completed [facility] Alprazolam 0.5 MG Oral Tablet Alprazolam 12/29/2019 07:41:20 AM EDT 0.5 MG completed [facility] Alprazolam 0.5 MG Oral Tablet Alprazolam 12/29/2019 07:41:20 AM EDT 0.5 MG completed [facility] Alprazolam 0.5 MG Oral Tablet Alprazolam 12/29/2019 07:41:20 AM EDT 0.5 MG completed [facility] Alprazolam 0.5 MG Oral Tablet Alprazolam 12/29/2019 07:41:20 AM EDT 0.5 MG completed [facility] Fluticasone Propionate (Flonase Allergy Relief) 50 mcg/actuation spray,suspension 12/20/2019 10:26:51 AM EDT 2 SPRAY active [facility] Fluticasone Propionate (Flonase Allergy Relief) 50 mcg/actuation spray,suspension 12/20/2019 10:26:51 AM EDT 2 SPRAY completed [facility] Fluticasone Propionate (Flonase Allergy Relief) 50 mcg/actuation spray,suspension 12/20/2019 10:26:51 AM EDT 2 SPRAY completed [facility] Fluticasone Propionate (Flonase Allergy Relief) 50 mcg/actuation spray,suspension 12/20/2019 10:26:51 AM EDT 2 SPRAY completed [facility] Fluticasone Propionate (Flonase Allergy Relief) 50 mcg/actuation spray,suspension 12/20/2019 10:26:51 AM EDT 2 SPRAY active [facility] Fluticasone Propionate (Flonase Allergy Relief) 50 mcg/actuation spray,suspension 12/20/2019 10:26:51 AM EDT 2 SPRAY completed [facility] Fluticasone Propionate (Flonase Allergy Relief) 50 mcg/actuation spray,suspension 12/20/2019 10:26:51 AM EDT 2 SPRAY completed [facility] Fluticasone Propionate (Flonase Allergy Relief) 50 mcg/actuation spray,suspension 12/20/2019 10:26:51 AM EDT 2 SPRAY completed [facility] Fluticasone Propionate (Flonase Allergy Relief) 50 mcg/actuation spray,suspension 12/20/2019 10:26:51 AM EDT 2 SPRAY completed [facility] Fluticasone Propionate (Flonase Allergy Relief) 50 mcg/actuation spray,suspension 12/20/2019 10:26:51 AM EDT 2 SPRAY completed [facility] Syringe (Disposable) (Bd Luer-Yanira Tip Control Syring) 10 mL syringe 11/29/2019 08:46:58 AM EDT 1 EACH completed [facility] Syringe (Disposable) (Bd Luer-Yanira Tip Control Syring) 10 mL syringe 11/29/2019 08:46:58 AM EDT 1 EACH completed [facility] Syringe (Disposable) (Bd Luer-Yanira Tip Control Syring) 10 mL syringe 11/29/2019 08:46:58 AM EDT 1 EACH completed [facility] Syringe (Disposable) (Bd Luer-Yanira Tip Control Syring) 10 mL syringe 11/29/2019 08:46:58 AM EDT 1 EACH completed [facility] Syringe (Disposable) (Bd Luer-Yanira Tip Control Syring) 10 mL syringe 11/29/2019 08:46:58 AM EDT 1 EACH completed [facility] Syringe (Disposable) (Bd Luer-Yanira Tip Control Syring) 10 mL syringe 11/29/2019 08:46:58 AM EDT 1 EACH completed [facility] Syringe (Disposable) (Bd Luer-Yanira Tip Control Syring) 10 mL syringe 11/29/2019 08:46:58 AM EDT 1 EACH completed [facility] Syringe (Disposable) (Bd Luer-Yanira Tip Control Syring) 10 mL syringe 11/29/2019 08:46:58 AM EDT 1 EACH active [facility] Syringe (Disposable) (Bd Luer-Yanira Tip Control Syring) 10 mL syringe 11/29/2019 08:46:58 AM EDT 1 EACH completed [facility] Syringe (Disposable) (Bd Luer-Yanira Tip Control Syring) 10 mL syringe 11/29/2019 08:46:58 AM EDT 1 EACH completed [facility] meloxicam 7.5 MG Oral Tablet Meloxicam Meloxicam 11/29/2019 08:4 6:52 AM EDT 7.5 MG active [facility] meloxicam 7.5 MG Oral Tablet Meloxicam Meloxicam 11/29/2019 08:4 6:52 AM EDT 7.5 MG active [facility] meloxicam 7.5 MG Oral Tablet Meloxicam Meloxicam 11/29/2019 08:4 6:52 AM EDT 7.5 MG active [facility] meloxicam 7.5 MG Oral Tablet Meloxicam Meloxicam 11/29/2019 08:4 6:52 AM EDT 7.5 MG active [facility] meloxicam 7.5 MG Oral Tablet Meloxicam Meloxicam 11/29/2019 08:4 6:52 AM EDT 7.5 MG active [facility] meloxicam 7.5 MG Oral Tablet Meloxicam Meloxicam 11/29/2019 08:4 6:52 AM EDT 7.5 MG active [facility] meloxicam 7.5 MG Oral Tablet Meloxicam Meloxicam 11/29/2019 08:4 6:52 AM EDT 7.5 MG active [facility] meloxicam 7.5 MG Oral Tablet Meloxicam Meloxicam 11/29/2019 08:4 6:52 AM EDT 7.5 MG active [facility] meloxicam 7.5 MG Oral Tablet Meloxicam Meloxicam 11/29/2019 08:4 6:52 AM EDT 7.5 MG active [facility] meloxicam 7.5 MG Oral Tablet Meloxicam Meloxicam 11/29/2019 08:4 6:52 AM EDT 7.5 MG active [facility] Alprazolam 0.5 MG Oral Tablet Alprazolam 11/29/2019 08:45:38 AM EDT 0.5 MG completed [facility] Alprazolam 0.5 MG Oral Tablet Alprazolam 11/29/2019 08:45:38 AM EDT 0.5 MG completed [facility] Alprazolam 0.5 MG Oral Tablet Alprazolam 11/29/2019 08:45:38 AM EDT 0.5 MG completed [facility] Alprazolam 0.5 MG Oral Tablet Alprazolam 11/29/2019 08:45:38 AM EDT 0.5 MG completed [facility] Alprazolam 0.5 MG Oral Tablet Alprazolam 11/29/2019 08:45:38 AM EDT 0.5 MG completed [facility] Alprazolam 0.5 MG Oral Tablet Alprazolam 11/29/2019 08:45:38 AM EDT 0.5 MG completed [facility] Alprazolam 0.5 MG Oral Tablet Alprazolam 11/29/2019 08:45:38 AM EDT 0.5 MG completed [facility] Alprazolam 0.5 MG Oral Tablet Alprazolam 11/29/2019 08:45:38 AM EDT 0.5 MG completed [facility] Alprazolam 0.5 MG Oral Tablet Alprazolam 11/29/2019 08:45:38 AM EDT 0.5 MG completed [facility] Alprazolam 0.5 MG Oral Tablet Alprazolam 11/29/2019 08:45:38 AM EDT 0.5 MG active [facility] Testosterone Cypionate 11/29/2019 08:45:23 AM EDT 300 MG active [facility] Testosterone Cypionate 11/29/2019 08:45:23 AM EDT 300 MG completed [facility] Testosterone Cypionate 11/29/2019 08:45:23 AM EDT 300 [facility] Test[facility] Cyp[facility] 11/29/2019 08:45:23 AM EDT 300 MG completed [facility] Testosterone Cypionate 11/29/2019 08:45:23 AM EDT 300 MG [facility] Testosterone Cypionate 11/29/2019 08:45:23 AM EDT 300 MG completed [facility] Testosterone Cypionate 11/29/2019 08:45:23 AM EDT 300 MG completed [facility] Testosterone Cypionate 11/29/2019 08:45:23 AM EDT 300 MG [facility] Testosterone Cypionate 11/29/2019 08:45:23 AM EDT 300 MG [facility] Testosterone Cypionate 11/29/2019 08:45:23 AM EDT 300 MG completed [facility] Testosterone Cypionate 11/29/2019 08:34:48 AM EDT 300 MG completed [facility] Testosterone Cypionate 11/29/2019 08:34:48 AM EDT 300 MG completed [facility] Testosterone Cypionate 11/29/2019 08:34:48 AM EDT 300 MG completed [facility] Testosterone Cypionate 11/29/2019 08:34:48 AM EDT 300 MG completed [facility] Testosterone Cypionate 11/29/2019 08:34:48 AM EDT 300 MG completed [facility] l Testosterone Cypionate 11/29/2019 08:34:48 AM EDT 300 MG completed [facility] Testosterone Cypionate 11/29/2019 08:34:48 AM EDT 300 MG completed [facility] Testosterone Cypionate 11/29/2019 08:34:48 AM EDT 300 MG completed [facility] Testosterone Cypionate 11/29/2019 08:34:48 AM EDT 300 MG completed [facility] Testosterone Cypionate 11/29/2019 08:34:48 AM EDT 300 MG [facility] Alprazolam 0.5 MG Oral Tablet Alprazolam 11/29/2019 08:34:44 AM EDT 0.5 MG completed [facility] Alprazolam 0.5 MG Oral Tablet Alprazolam 11/29/2019 08:34:44 AM EDT 0.5 MG completed [facility] Alprazolam 0.5 MG Oral Tablet Alprazolam 11/29/2019 08:34:44 AM EDT 0.5 MG completed [facility] Alprazolam 0.5 MG Oral Tablet Alprazolam 11/29/2019 08:34:44 AM EDT 0.5 MG completed [facility] Alprazolam 0.5 MG Oral Tablet Alprazolam 11/29/2019 08:34:44 AM EDT 0.5 MG completed [facility] Alprazolam 0.5 MG Oral Tablet Alprazolam 11/29/2019 08:34:44 AM EDT 0.5 MG completed [facility] Alprazolam 0.5 MG Oral Tablet Alprazolam 11/29/2019 08:34:44 AM EDT 0.5 MG completed [facility] Alprazolam 0.5 MG Oral Tablet Alprazolam 11/29/2019 08:34:44 AM EDT 0.5 MG completed [facility] Alprazolam 0.5 MG Oral Tablet Alprazolam 11/29/2019 08:34:44 AM EDT 0.5 MG completed [facility] Alprazolam 0.5 MG Oral Tablet Alprazolam 11/29/2019 08:34:44 AM EDT 0.5 MG completed [facility] Syringe (Disposable) (Bd Luer-Yanira Tip Control Syring) 10 mL syringe 11/29/2019 08:34:39 AM EDT 1 EACH completed [facility] Syringe (Disposable) (Bd Luer-Yanira Tip Control Syring) 10 mL syringe 11/29/2019 08:34:39 AM EDT 1 EACH completed [facility] Syringe (Disposable) (Bd Luer-Yanira Tip Control Syring) 10 mL syringe 11/29/2019 08:34:39 AM EDT 1 EACH completed [facility] Syringe (Disposable) (Bd Luer-Yanira Tip Control Syring) 10 mL syringe 11/29/2019 08:34:39 AM EDT 1 EACH completed [facility] Syringe (Disposable) (Bd Luer-Yanira Tip Control Syring) 10 mL syringe 11/29/2019 08:34:39 AM EDT 1 EACH completed [facility] Syringe (Disposable) (Bd Luer-Yanira Tip Control Syring) 10 mL syringe 11/29/2019 08:34:39 AM EDT 1 EACH completed [facility] Syringe (Disposable) (Bd Luer-Yanira Tip Control Syring) 10 mL syringe 11/29/2019 08:34:39 AM EDT 1 EACH completed [facility] Syringe (Disposable) (Bd Luer-Yanira Tip Control Syring) 10 mL syringe 11/29/2019 08:34:39 AM EDT 1 EACH completed [facility] Syringe (Disposable) (Bd Luer-Yanira Tip Control Syring) 10 mL syringe 11/29/2019 08:34:39 AM EDT 1 EACH completed [facility] Syringe (Disposable) (Bd Luer-Yanira Tip Control Syring) 10 mL syringe 11/29/2019 08:34:39 AM EDT 1 EACH completed [facility] meloxicam 7.5 MG Oral Tablet Meloxicam Meloxicam 11/29/2019 08:1 6:51 AM EDT 7.5 MG completed [facility] meloxicam 7.5 MG Oral Tablet Meloxicam Meloxicam 11/29/2019 08:1 6:51 AM EDT 7.5 MG completed [facility] meloxicam 7.5 MG Oral Tablet Meloxicam Meloxicam 11/29/2019 08:1 6:51 AM EDT 7.5 MG completed [facility] meloxicam 7.5 MG Oral Tablet Meloxicam Meloxicam 11/29/2019 08:1 6:51 AM EDT 7.5 MG completed [facility] meloxicam 7.5 MG Oral Tablet Meloxicam Meloxicam 11/29/2019 08:1 6:51 AM EDT 7.5 MG completed [facility] meloxicam 7.5 MG Oral Tablet Meloxicam Meloxicam 11/29/2019 08:1 6:51 AM EDT 7.5 MG completed [facility] meloxicam 7.5 MG Oral Tablet Meloxicam Meloxicam 11/29/2019 08:1 6:51 AM EDT 7.5 MG completed [facility] meloxicam 7.5 MG Oral Tablet Meloxicam Meloxicam 11/29/2019 08:1 6:51 AM EDT 7.5 MG completed [facility] meloxicam 7.5 MG Oral Tablet Meloxicam Meloxicam 11/29/2019 08:1 6:51 AM EDT 7.5 MG completed [facility] meloxicam 7.5 MG Oral Tablet Meloxicam Meloxicam 11/29/2019 08:1 6:51 AM EDT 7.5 MG completed [facility] Citalopram 20 MG Oral Tablet Citalopram 11/13/2019 03:47:54 PM EDT 40 MG active [facility] Citalopram 20 MG Oral Tablet Citalopram 11/13/2019 03:47:54 PM EDT 40 MG completed [facility] Citalopram 20 MG Oral Tablet Citalopram 11/13/2019 03:47:54 PM EDT 40 MG completed [facility] Citalopram 20 MG Oral Tablet Citalopram 11/13/2019 03:47:54 PM EDT 40 MG completed [facility] Citalopram 20 MG Oral Tablet Citalopram 11/13/2019 03:47:54 PM EDT 40 MG completed [facility] Citalopram 20 MG Oral Tablet Citalopram 11/13/2019 03:47:54 PM EDT 40 MG completed [facility] Citalopram 20 MG Oral Tablet Citalopram 11/13/2019 03:47:54 PM EDT 40 MG completed [facility] Citalopram 20 MG Oral Tablet Citalopram 11/13/2019 03:47:54 PM EDT 40 MG completed [facility] Citalopram 20 MG Oral Tablet Citalopram 11/13/2019 03:47:54 PM EDT 40 MG completed [facility] Citalopram 20 MG Oral Tablet Citalopram 11/13/2019 03:47:54 PM EDT 40 MG completed [facility] gabapentin 400 MG Oral Capsule Gabapentin Gabapentin 2019 03:46:39 PM EDT 400 MG completed [facility] Divalproex Sodium 250 MG Delayed Release Oral Tablet Divalpr oex 11/13/2019 03:46:07 PM EDT 250 MG completed [facility] Divalproex Sodium 250 MG Delayed Release Oral Tablet Divalpr oex 11/13/2019 03:46:07 PM EDT 250 MG completed [facility] Divalproex Sodium 250 MG Delayed Release Oral Tablet Divalpr oex 11/13/2019 03:46:07 PM EDT 250 MG completed [facility] Divalproex Sodium 250 MG Delayed Release Oral Tablet Divalpr oex 11/13/2019 03:46:07 PM EDT 250 MG completed [facility] Divalproex Sodium 250 MG Delayed Release Oral Tablet Divalpr oex 11/13/2019 03:46:07 PM EDT 250 MG completed [facility] Divalproex Sodium 250 MG Delayed Release Oral Tablet Divalpr oex 11/13/2019 03:46:07 PM EDT 250 MG completed [facility] Divalproex Sodium 250 MG Delayed Release Oral Tablet Divalpr oex 11/13/2019 03:46:07 PM EDT 250 MG completed [facility] Divalproex Sodium 250 MG Delayed Release Oral Tablet Divalpr oex 11/13/2019 03:46:07 PM EDT 250 MG completed [facility] Divalproex Sodium 250 MG Delayed Release Oral Tablet Divalpr oex 11/13/2019 03:46:07 PM EDT 250 MG completed [facility] Divalproex Sodium 250 MG Delayed Release Oral Tablet Divalpr oex 11/13/2019 03:46:07 PM EDT 250 MG completed [facility] Citalopram 20 MG Oral Tablet Citalopram 11/13/2019 03:45:33 PM EDT 40 MG completed [facility] Citalopram 20 MG Oral Tablet Citalopram 11/13/2019 03:45:33 PM EDT 40 MG completed [facility] Citalopram 20 MG Oral Tablet Citalopram 11/13/2019 03:45:33 PM EDT 40 MG completed [facility] Citalopram 20 MG Oral Tablet Citalopram 11/13/2019 03:45:33 PM EDT 40 MG completed [facility] Citalopram 20 MG Oral Tablet Citalopram 11/13/2019 03:45:33 PM EDT 40 MG completed [facility] Citalopram 20 MG Oral Tablet Citalopram 11/13/2019 03:45:33 PM EDT 40 MG completed [facility] Citalopram 20 MG Oral Tablet Citalopram 11/13/2019 03:45:33 PM EDT 40 MG completed [facility] Citalopram 20 MG Oral Tablet Citalopram 11/13/2019 03:45:33 PM EDT 40 MG completed [facility] Citalopram 20 MG Oral Tablet Citalopram 11/13/2019 03:45:33 PM EDT 40 MG completed [facility] Citalopram 20 MG Oral Tablet Citalopram 11/13/2019 03:45:33 PM EDT 40 MG completed [facility] Azelastine HCL (Nasal) Azelastine HCL (Nasal) 11/09/2019 12:00:00 AM E DT active [facility] Fluticasone Propionate Nasal [place] Fluticasone Propionate Na makenna [place] 11/09/2019 12:00:00 AM EDT active [facility] ([facility] Testosterone Cypionate 10/19/2019 12:24:56 PM EDT 300 MG completed [facility] Testosterone Cypionate 10/19/2019 12:24:56 PM EDT 300 MG completed [facility] Testosterone Cypionate 10/19/2019 12:24:56 PM EDT 300 MG completed [facility] Testosterone Cypionate 10/19/2019 12:24:56 PM EDT 300 MG completed [facility] Testosterone Cypionate 10/19/2019 12:24:56 PM EDT 300 MG completed [facility] Testosterone Cypionate 10/19/2019 12:24:56 PM EDT 300 MG completed [facility] Testosterone Cypionate 10/19/2019 12:24:56 PM EDT 300 MG completed [facility] Testosterone Cypionate 10/19/2019 12:24:56 PM EDT 300 MG completed [facility] Testosterone Cypionate 10/19/2019 12:24:56 PM EDT 300 MG completed [facility] Testosterone Cypionate 10/19/2019 12:24:56 PM EDT 300 MG completed [facility] Syringe (Disposable) (Bd Luer-Yanira Tip Control Syring) 10 mL syringe 10/19/2019 11:10:00 AM EDT 1 EACH completed [facility] Syringe (Disposable) (Bd Luer-Yanira Tip Control Syring) 10 mL syringe 10/19/2019 11:10:00 AM EDT 1 EACH completed [facility] Syringe (Disposable) (Bd Luer-Yanira Tip Control Syring) 10 mL syringe 10/19/2019 11:10:00 AM EDT 1 EACH completed [facility] Syringe (Disposable) (Bd Luer-Yanira Tip Control Syring) 10 mL syringe 10/19/2019 11:10:00 AM EDT 1 EACH completed [facility] Syringe (Disposable) (Bd Luer-Yanira Tip Control Syring) 10 mL syringe 10/19/2019 11:10:00 AM EDT 1 EACH completed [facility] Syringe (Disposable) (Bd Luer-Yanira Tip Control Syring) 10 mL syringe 10/19/2019 11:10:00 AM EDT 1 EACH completed [facility] Syringe (Disposable) (Bd Luer-Yanira Tip Control Syring) 10 mL syringe 10/19/2019 11:10:00 AM EDT 1 EACH completed [facility] Syringe (Disposable) (Bd Luer-Yanira Tip Control Syring) 10 mL syringe 10/19/2019 11:10:00 AM EDT 1 EACH completed [facility] Syringe (Disposable) (Bd Luer-Yanira Tip Control Syring) 10 mL syringe 10/19/2019 11:10:00 AM EDT 1 EACH completed [facility] Syringe (Disposable) (Bd Luer-Yanira Tip Control Syring) 10 mL syringe 10/19/2019 11:10:00 AM EDT 1 EACH completed [facility] Trazodone Hydrochloride 50 MG Oral Tablet Trazodone 2019 10:02:22 AM EDT 50 MG completed [facility] Trazodone Hydrochloride 50 MG Oral Tablet Trazodone 2019 10:02:22 AM EDT 50 MG completed [facility] Trazodone Hydrochloride 50 MG Oral Tablet Trazodone 2019 10:02:22 AM EDT 50 MG completed [facility] Trazodone Hydrochloride 50 MG Oral Tablet Trazodone 2019 10:02:22 AM EDT 50 MG completed [facility] Trazodone Hydrochloride 50 MG Oral Tablet Trazodone 2019 10:02:22 AM EDT 50 MG completed [facility] Trazodone Hydrochloride 50 MG Oral Tablet Trazodone 2019 10:02:22 AM EDT 50 MG completed [facility] Trazodone Hydrochloride 50 MG Oral Tablet Trazodone 2019 10:02:22 AM EDT 50 MG completed [facility] Trazodone Hydrochloride 50 MG Oral Tablet Trazodone 2019 10:02:22 AM EDT 50 MG completed [facility] Trazodone Hydrochloride 50 MG Oral Tablet Trazodone 2019 10:02:22 AM EDT 50 MG completed [facility] Trazodone Hydrochloride 50 MG Oral Tablet Trazodone 2019 10:02:22 AM EDT 50 MG completed [facility] Trazodone Hydrochloride 50 MG Oral Tablet Trazodone 2019 10:02:22 AM EDT 50 MG completed [facility] Testosterone Cypionate 08/21/2019 09:55:23 AM EDT 300 MG completed [facility] Testosterone Cypionate 08/21/2019 09:55:23 AM EDT 300 MG completed [facility] Testosterone Cypionate 08/21/2019 09:55:23 AM EDT 300 MG active [facility] Testosterone Cypionate 08/21/2019 09:55:23 AM EDT 300 MG completed [facility] Testosterone Cypionate 08/21/2019 09:55:23 AM EDT 300 MG completed [facility] Testosterone Cypionate 08/21/2019 09:55:23 AM EDT 300 MG completed [facility] Testosterone Cypionate 08/21/2019 09:55:23 AM EDT 300 MG completed [facility] Testosterone Cypionate 08/21/2019 09:55:23 AM EDT 300 MG completed [facility] Testosterone Cypionate 08/21/2019 09:55:23 AM EDT 300 MG completed [facility] Testosterone Cypionate 08/21/2019 09:55:23 AM EDT 300 MG completed [facility] Testosterone Cypionate 08/21/2019 09:55:23 AM EDT 300 MG completed [facility] Loratadine 10 MG Oral Tablet Loratadine (Allergy Relief (Loratadine)) 10 mg tablet Loratadine (Allergy Relief (Loratadine)) 10 mg tablet 07/12/2019 10:16:12 AM EST 10 MG completed [facility] Loratadine 10 MG Oral Tablet Loratadine 07/12/2019 10:16:12 AM EST 10 MG active [facility] Loratadine 10 MG Oral Tablet Loratadine (Allergy Relief (Loratadine)) 10 mg tablet Loratadine (Allergy Relief (Loratadine)) 10 mg tablet 07/12/2019 10:16:12 AM EST 10 MG active [facility] Loratadine 10 MG Oral Tablet Loratadine (Allergy Relief (Loratadine)) 10 mg tablet Loratadine (Allergy Relief (Loratadine)) 10 mg tablet 07/12/2019 10:16:12 AM EST 10 MG completed [facility] Loratadine 10 MG Oral Tablet Loratadine (Allergy Relief (Loratadine)) 10 mg tablet Loratadine (Allergy Relief (Loratadine)) 10 mg tablet 07/12/2019 10:16:12 AM EST 10 MG completed [facility] Loratadine 10 MG Oral Tablet Loratadine (Allergy Relief (Loratadine)) 10 mg tablet Loratadine (Allergy Relief (Loratadine)) 10 mg tablet 07/12/2019 10:16:12 AM EST 10 MG completed [facility] Loratadine 10 MG Oral Tablet Loratadine (Allergy Relief (Loratadine)) 10 mg tablet Loratadine (Allergy Relief (Loratadine)) 10 mg tablet 07/12/2019 10:16:12 AM EST 10 MG completed [facility] Loratadine 10 MG Oral Tablet Loratadine (Allergy Relief (Loratadine)) 10 mg tablet Loratadine (Allergy Relief (Loratadine)) 10 mg tablet 07/12/2019 10:16:12 AM EST 10 MG completed [facility] Loratadine 10 MG Oral Tablet Loratadine (Allergy Relief (Loratadine)) 10 mg tablet Loratadine (Allergy Relief (Loratadine)) 10 mg tablet 07/12/2019 10:16:12 AM EST 10 MG completed [facility] Loratadine 10 MG Oral Tablet Loratadine (Allergy Relief (Loratadine)) 10 mg tablet Loratadine (Allergy Relief (Loratadine)) 10 mg tablet 07/12/2019 10:16:12 AM EST 10 MG active [facility] Loratadine 10 MG Oral Tablet Loratadine (Allergy Relief (Loratadine)) 10 mg tablet Loratadine (Allergy Relief (Loratadine)) 10 mg tablet 07/12/2019 10:16:12 AM EST 10 MG completed [facility] Loratadine 10 MG Oral Tablet Loratadine (Allergy Relief (Loratadine)) 10 mg tablet Loratadine (Allergy Relief (Loratadine)) 10 mg tablet 07/12/2019 10:15:06 AM EST 10 MG completed [facility] Loratadine 10 MG Oral Tablet Loratadine 07/12/2019 10:15:06 AM EST 10 MG completed [facility] Loratadine 10 MG Oral Tablet Loratadine (Allergy Relief (Loratadine)) 10 mg tablet Loratadine (Allergy Relief (Loratadine)) 10 mg tablet 07/12/2019 10:15:06 AM EST 10 MG completed [facility] Loratadine 10 MG Oral Tablet Loratadine (Allergy Relief (Loratadine)) 10 mg tablet Loratadine (Allergy Relief (Loratadine)) 10 mg tablet 07/12/2019 10:15:06 AM EST 10 MG completed [facility] Loratadine 10 MG Oral Tablet Loratadine (Allergy Relief (Loratadine)) 10 mg tablet Loratadine (Allergy Relief (Loratadine)) 10 mg tablet 07/12/2019 10:15:06 AM EST 10 MG completed [facility] Loratadine 10 MG Oral Tablet Loratadine (Allergy Relief (Loratadine)) 10 mg tablet Loratadine (Allergy Relief (Loratadine)) 10 mg tablet 07/12/2019 10:15:06 AM EST 10 MG completed [facility] Loratadine 10 MG Oral Tablet Loratadine (Allergy Relief (Loratadine)) 10 mg tablet Loratadine (Allergy Relief (Loratadine)) 10 mg tablet 07/12/2019 10:15:06 AM EST 10 MG completed [facility] Loratadine 10 MG Oral Tablet Loratadine (Allergy Relief (Loratadine)) 10 mg tablet Loratadine (Allergy Relief (Loratadine)) 10 mg tablet 07/12/2019 10:15:06 AM EST 10 MG completed [facility] Loratadine 10 MG Oral Tablet Loratadine (Allergy Relief (Loratadine)) 10 mg tablet Loratadine (Allergy Relief (Loratadine)) 10 mg tablet 07/12/2019 10:15:06 AM EST 10 MG completed [facility] Loratadine 10 MG Oral Tablet Loratadine (Allergy Relief (Loratadine)) 10 mg tablet Loratadine (Allergy Relief (Loratadine)) 10 mg tablet 07/12/2019 10:15:06 AM EST 10 MG completed [facility] Loratadine 10 MG Oral Tablet Loratadine (Allergy Relief (Loratadine)) 10 mg tablet Loratadine (Allergy Relief (Loratadine)) 10 mg tablet 07/12/2019 10:15:06 AM EST 10 MG completed [facility] montelukast 10 MG Oral Tablet Montelukast Montelukast 07/12/2019 10:14:59 AM EST 10 MG completed [facility] montelukast 10 MG Oral Tablet Montelukast Montelukast 07/12/2019 10:14:59 AM EST 10 MG completed [facility] montelukast 10 MG Oral Tablet Montelukast Montelukast 07/12/2019 10:14:59 AM EST 10 MG completed [facility] montelukast 10 MG Oral Tablet Montelukast Montelukast 07/12/2019 10:14:59 AM EST 10 MG completed [facility] montelukast 10 MG Oral Tablet Montelukast Montelukast 07/12/2019 10:14:59 AM EST 10 MG active [facility] montelukast 10 MG Oral Tablet Montelukast Montelukast 07/12/2019 10:14:59 AM EST 10 MG completed [facility] montelukast 10 MG Oral Tablet Montelukast Montelukast 07/12/2019 10:14:59 AM EST 10 MG active [facility] montelukast 10 MG Oral Tablet Montelukast Montelukast 07/12/2019 10:14:59 AM EST 10 MG completed [facility] montelukast 10 MG Oral Tablet Montelukast Montelukast 07/12/2019 10:14:59 AM EST 10 MG completed [facility] montelukast 10 MG Oral Tablet Montelukast Montelukast 07/12/2019 10:14:59 AM EST 10 MG completed [facility] montelukast 10 MG Oral Tablet Montelukast Montelukast 07/12/2019 10:14:59 AM EST 10 MG active [facility] Testosterone Cypionate 06/27/2019 08:37:11 AM EST 300 MG completed [facility] Testosterone Cypionate 06/27/2019 08:37:11 AM EST 300 MG active [facility] Testosterone Cypionate 06/27/2019 08:37:11 AM EST 300 MG completed [facility] Testosterone Cypionate 06/27/2019 08:37:11 AM EST 300 MG completed [facility] Testosterone Cypionate 06/27/2019 08:37:11 AM EST 300 MG completed [facility] Testosterone Cypionate 06/27/2019 08:37:11 AM EST 300 MG completed [facility] Testosterone Cypionate 06/27/2019 08:37:11 AM EST 300 MG completed [facility] Testosterone Cypionate 06/27/2019 08:37:11 AM EST 300 MG completed [facility] Testosterone Cypionate 06/27/2019 08:37:11 AM EST 300 MG completed [facility] Testosterone Cypionate 06/27/2019 08:37:11 AM EST 300 MG completed [facility] Testosterone Cypionate 06/27/2019 08:37:11 AM EST 300 MG completed [facility] Testosterone Cypionate 06/27/2019 08:37:11 AM EST 300 MG completed [facility] l Syringe (Disposable) (Bd Luer-Yanira Tip Control Syring) 10 mL syringe 06/27/2019 08:37:00 AM EST 1 EACH completed [facility] Syringe (Disposable) (Bd Luer-Yanira Tip Control Syring) 10 mL syringe 06/27/2019 08:37:00 AM EST 1 EACH completed [facility] Syringe (Disposable) (Bd Luer-Yanira Tip Control Syring) 10 mL syringe 06/27/2019 08:37:00 AM EST 1 EACH completed [facility] Syringe (Disposable) (Bd Luer-Yanira Tip Control Syring) 10 mL syringe 06/27/2019 08:37:00 AM EST 1 EACH completed [facility] Syringe (Disposable) (Bd Luer-Yanira Tip Control Syring) 10 mL syringe 06/27/2019 08:37:00 AM EST 1 EACH completed [facility] Syringe (Disposable) 06/27/2019 08:37:00 AM EST 1 EACH active [facility] Syringe (Disposable) 06/27/2019 08:37:00 AM EST 1 EACH active [facility] Syringe (Disposable) (Bd Luer-Yanira Tip Control Syring) 10 mL syringe 06/27/2019 08:37:00 AM EST 1 EACH completed [facility] Syringe (Disposable) (Bd Luer-Yanira Tip Control Syring) 10 mL syringe 06/27/2019 08:37:00 AM EST 1 EACH completed [facility] Syringe (Disposable) (Bd Luer-Yanira Tip Control Syring) 10 mL syringe 06/27/2019 08:37:00 AM EST 1 EACH completed [facility] Syringe (Disposable) (Bd Luer-Yanira Tip Control Syring) 10 mL syringe 06/27/2019 08:37:00 AM EST 1 EACH completed [facility] Syringe (Disposable) (Bd Luer-Yanira Tip Control Syring) 10 mL syringe 06/27/2019 08:37:00 AM EST 1 EACH completed [facility] Testosterone Cypionate 04/28/2019 07:29:49 AM EST 300 MG completed [facility] Testosterone Cypionate 04/28/2019 07:29:49 AM EST 300 MG completed [facility] Testosterone Cypionate 04/28/2019 07:29:49 AM EST 300 MG completed [facility] Testosterone Cypionate 04/28/2019 07:29:49 AM EST 300 MG completed [facility] Testosterone Cypionate 04/28/2019 07:29:49 AM EST 300 MG completed [facility] Testosterone Cypionate 04/28/2019 07:29:49 AM EST 300 MG completed [facility] Testosterone Cypionate 04/28/2019 07:29:49 AM EST 300 MG completed [facility] Testosterone Cypionate 04/28/2019 07:29:49 AM EST 300 MG completed [facility] Testosterone Cypionate 04/28/2019 07:29:49 AM EST 300 MG completed [facility] Testosterone Cypionate 04/28/2019 07:29:49 AM EST 300 MG completed [facility] Testosterone Cypionate 04/28/2019 07:29:49 AM EST 300 MG completed [facility] Testosterone Cypionate 04/28/2019 07:29:49 AM EST 300 MG completed [facility] l Syringe (Disposable) (Bd Luer-Yanira Tip Control Syring) 10 mL syringe 04/28/2019 07:29:08 AM EST 1 EACH completed [facility] Syringe (Disposable) 04/28/2019 07:29:08 AM EST 1 EACH completed [facility] Syringe (Disposable) (Bd Luer-Yanira Tip Control Syring) 10 mL syringe 04/28/2019 07:29:08 AM EST 1 EACH completed [facility] Syringe (Disposable) (Bd Luer-Yanira Tip Control Syring) 10 mL syringe 04/28/2019 07:29:08 AM EST 1 EACH completed [facility] Syringe (Disposable) 04/28/2019 07:29:08 AM EST 1 EACH completed [facility] Syringe (Disposable) (Bd Luer-Yanira Tip Control Syring) 10 mL syringe 04/28/2019 07:29:08 AM EST 1 EACH completed [facility] Syringe (Disposable) (Bd Luer-Yanira Tip Control Syring) 10 mL syringe 04/28/2019 07:29:08 AM EST 1 EACH completed [facility] Syringe (Disposable) (Bd Luer-Yanira Tip Control Syring) 10 mL syringe 04/28/2019 07:29:08 AM EST 1 EACH completed [facility] Syringe (Disposable) (Bd Luer-Yanira Tip Control Syring) 10 mL syringe 04/28/2019 07:29:08 AM EST 1 EACH completed [facility] Syringe (Disposable) (Bd Luer-Yanira Tip Control Syring) 10 mL syringe 04/28/2019 07:29:08 AM EST 1 EACH completed [facility] Syringe (Disposable) (Bd Luer-Yanira Tip Control Syring) 10 mL syringe 04/28/2019 07:29:08 AM EST 1 EACH completed [facility] Syringe (Disposable) (Bd Luer-Yanira Tip Control Syring) 10 mL syringe 04/28/2019 07:29:08 AM EST 1 EACH completed [facility] Alprazolam 0.5 MG Oral Tablet Alprazolam 02/16/2019 10:08:03 AM EDT 0.5 MG completed [facility] Alprazolam 0.5 MG Oral Tablet Alprazolam 02/16/2019 10:08:03 AM EDT 0.5 MG completed [facility] Alprazolam 0.5 MG Oral Tablet Alprazolam 02/16/2019 10:08:03 AM EDT 0.5 MG completed [facility] Alprazolam 0.5 MG Oral Tablet Alprazolam 02/16/2019 10:08:03 AM EDT 0.5 MG completed [facility] Alprazolam 0.5 MG Oral Tablet Alprazolam 02/16/2019 10:08:03 AM EDT 0.5 MG completed [facility] Alprazolam 0.5 MG Oral Tablet Alprazolam 02/16/2019 10:08:03 AM EDT 0.5 MG completed [facility] Alprazolam 0.5 MG Oral Tablet Alprazolam 02/16/2019 10:08:03 AM EDT 0.5 MG completed [facility] Alprazolam 0.5 MG Oral Tablet Alprazolam 02/16/2019 10:08:03 AM EDT 0.5 MG completed [facility] Alprazolam 0.5 MG Oral Tablet Alprazolam 02/16/2019 10:08:03 AM EDT 0.5 MG completed [facility] Alprazolam 0.5 MG Oral Tablet Alprazolam 02/16/2019 10:08:03 AM EDT 0.5 MG completed [facility] Lisinopril 40 MG Oral Tablet Lisinopril 01/27/2019 02:55:33 PM EDT 40 MG completed [facility] Lisinopril 40 MG Oral Tablet Lisinopril 01/27/2019 02:55:33 PM EDT 40 MG completed [facility] Lisinopril 40 MG Oral Tablet Lisinopril 01/27/2019 02:55:33 PM EDT 40 MG completed [facility] Lisinopril 40 MG Oral Tablet Lisinopril 01/27/2019 02:55:33 PM EDT 40 MG completed [facility] Lisinopril 40 MG Oral Tablet Lisinopril 01/27/2019 02:55:33 PM EDT 40 MG completed [facility] Lisinopril 40 MG Oral Tablet Lisinopril 01/27/2019 02:55:33 PM EDT 40 MG completed [facility] Lisinopril 40 MG Oral Tablet Lisinopril 01/27/2019 02:55:33 PM EDT 40 MG completed [facility] Lisinopril 40 MG Oral Tablet Lisinopril 01/27/2019 02:55:33 PM EDT 40 MG completed [facility] Lisinopril 40 MG Oral Tablet Lisinopril 01/27/2019 02:55:33 PM EDT 40 MG completed [facility] montelukast 10 MG Oral Tablet Montelukast Montelukast 01/11/2019 08:44:39 AM EDT 10 MG completed [facility] montelukast 10 MG Oral Tablet Montelukast Montelukast 01/11/2019 08:44:39 AM EDT 10 MG completed [facility] montelukast 10 MG Oral Tablet Montelukast Montelukast 01/11/2019 08:44:39 AM EDT 10 MG completed [facility] montelukast 10 MG Oral Tablet Montelukast Montelukast 01/11/2019 08:44:39 AM EDT 10 MG completed [facility] montelukast 10 MG Oral Tablet Montelukast Montelukast 01/11/2019 08:44:39 AM EDT 10 MG completed [facility] montelukast 10 MG Oral Tablet Montelukast Montelukast 01/11/2019 08:44:39 AM EDT 10 MG completed [facility] montelukast 10 MG Oral Tablet Montelukast Montelukast 01/11/2019 08:44:39 AM EDT 10 MG completed [facility] montelukast 10 MG Oral Tablet Montelukast Montelukast 01/11/2019 08:44:39 AM EDT 10 MG completed [facility] montelukast 10 MG Oral Tablet Montelukast Montelukast 01/11/2019 08:44:39 AM EDT 10 MG completed [facility] montelukast 10 MG Oral Tablet Montelukast Montelukast 01/11/2019 08:44:39 AM EDT 10 MG completed [facility] montelukast 10 MG Oral Tablet Montelukast Montelukast 01/11/2019 08:44:39 AM EDT 10 MG completed [facility] montelukast 10 MG Oral Tablet Montelukast Montelukast 01/11/2019 08:44:39 AM EDT 10 MG completed [facility] Citalopram 20 MG Oral Tablet Citalopram 01/11/2019 08:36:56 AM EDT 30 MG completed [facility] Citalopram 20 MG Oral Tablet Citalopram 01/11/2019 08:36:56 AM EDT 30 MG completed [facility] Citalopram 20 MG Oral Tablet Citalopram 01/11/2019 08:36:56 AM EDT 30 MG completed [facility] Citalopram 20 MG Oral Tablet Citalopram 01/11/2019 08:36:56 AM EDT 30 MG completed [facility] Citalopram 20 MG Oral Tablet Citalopram 01/11/2019 08:36:56 AM EDT 30 MG completed [facility] Citalopram 20 MG Oral Tablet Citalopram 01/11/2019 08:36:56 AM EDT 30 MG completed [facility] Citalopram 20 MG Oral Tablet Citalopram 01/11/2019 08:36:56 AM EDT 30 MG completed [facility] Citalopram 20 MG Oral Tablet Citalopram 01/11/2019 08:36:56 AM EDT 30 MG completed [facility] Citalopram 20 MG Oral Tablet Citalopram 01/11/2019 08:36:56 AM EDT 30 MG completed [facility] Citalopram 20 MG Oral Tablet Citalopram 01/11/2019 08:36:56 AM EDT 30 MG completed [facility] meloxicam 7.5 MG Oral Tablet Meloxicam Meloxicam 12/06/2018 09:1 0:22 AM EDT 7.5 MG completed [facility] meloxicam 7.5 MG Oral Tablet Meloxicam Meloxicam 12/06/2018 09:1 0:22 AM EDT 7.5 MG completed [facility] meloxicam 7.5 MG Oral Tablet Meloxicam Meloxicam 12/06/2018 09:1 0:22 AM EDT 7.5 MG completed [facility] meloxicam 7.5 MG Oral Tablet Meloxicam Meloxicam 12/06/2018 09:1 0:22 AM EDT 7.5 MG completed [facility] meloxicam 7.5 MG Oral Tablet Meloxicam Meloxicam 12/06/2018 09:1 0:22 AM EDT 7.5 MG completed [facility] meloxicam 7.5 MG Oral Tablet Meloxicam Meloxicam 12/06/2018 09:1 0:22 AM EDT 7.5 MG completed [facility] meloxicam 7.5 MG Oral Tablet Meloxicam Meloxicam 12/06/2018 09:1 0:22 AM EDT 7.5 MG completed [facility] meloxicam 7.5 MG Oral Tablet Meloxicam Meloxicam 12/06/2018 09:1 0:22 AM EDT 7.5 MG completed [facility] meloxicam 7.5 MG Oral Tablet Meloxicam Meloxicam 12/06/2018 09:1 0:22 AM EDT 7.5 MG completed [facility] meloxicam 7.5 MG Oral Tablet Meloxicam Meloxicam 12/06/2018 09:1 0:[address] [facility] Divalproex Sodium 250 MG Delayed Release Oral Tablet Divalpr oex 12/06/2018 09:01:16 AM EDT completed [facility] Divalproex Sodium 250 MG Delayed Release Oral Tablet Divalpr oex 12/06/2018 09:01:16 AM EDT completed [facility] Divalproex Sodium 250 MG Delayed Release Oral Tablet Divalpr oex 12/06/2018 09:01:16 AM EDT completed [facility] Divalproex Sodium 250 MG Delayed Release Oral Tablet Divalpr oex 12/06/2018 09:01:16 AM EDT completed [facility] Divalproex Sodium 250 MG Delayed Release Oral Tablet Divalpr oex 12/06/2018 09:01:16 AM EDT completed [facility] Divalproex Sodium 250 MG Delayed Release Oral Tablet Divalpr oex 12/06/2018 09:01:16 AM EDT completed [facility] Divalproex Sodium 250 MG Delayed Release Oral Tablet Divalpr oex 12/06/2018 09:01:16 AM EDT completed [facility] Divalproex Sodium 250 MG Delayed Release Oral Tablet Divalpr oex 12/06/2018 09:01:16 AM EDT completed [facility] Divalproex Sodium 250 MG Delayed Release Oral Tablet Divalpr oex 12/06/2018 09:01:16 AM EDT completed [facility] Divalproex Sodium 250 MG Delayed Release Oral Tablet Divalpr oex 12/06/2018 09:01:16 AM EDT completed [facility] 24 HR Bupropion Hydrochloride 300 MG Extended Release Oral Tablet Bupropion Hcl Bupropion Hcl 09/06/2018 09:28:00 AM EDT 300 MG complete d [facility] 24 HR Bupropion Hydrochloride 300 MG Extended Release Oral Tablet Bupropion Hcl Bupropion Hcl 09/06/2018 09:28:00 AM EDT 300 MG complete d [facility] 24 HR Bupropion Hydrochloride 300 MG Extended Release Oral Tablet Bupropion Hcl Bupropion Hcl 09/06/2018 09:28:00 AM EDT 300 MG complete d [facility] 24 HR Bupropion Hydrochloride 300 MG Extended Release Oral Tablet Bupropion Hcl Bupropion Hcl 09/06/2018 09:28:00 AM EDT 300 MG complete d [facility] 24 HR Bupropion Hydrochloride 300 MG Extended Release Oral Tablet Bupropion Hcl Bupropion Hcl 09/06/2018 09:28:00 AM EDT 300 MG complete d [facility] 24 HR Bupropion Hydrochloride 300 MG Extended Release Oral Tablet Bupropion Hcl Bupropion Hcl 09/06/2018 09:28:00 AM EDT 300 MG complete d [facility] 24 HR Bupropion Hydrochloride 300 MG Extended Release Oral Tablet Bupropion Hcl Bupropion Hcl 09/06/2018 09:28:00 AM EDT 300 MG complete d [facility] 24 HR Bupropion Hydrochloride 300 MG Extended Release Oral Tablet Bupropion Hcl Bupropion Hcl 09/06/2018 09:28:00 AM EDT 300 MG complete d [facility] 24 HR Bupropion Hydrochloride 300 MG Extended Release Oral Tablet Bupropion Hcl Bupropion Hcl 09/06/2018 09:28:00 AM EDT 300 MG complete d [facility] 24 HR Bupropion Hydrochloride 300 MG Extended Release Oral Tablet Bupropion Hcl Bupropion Hcl 09/06/2018 09:28:00 AM EDT 300 MG complete d [facility] 24 HR Bupropion Hydrochloride 300 MG Extended Release Oral Tablet Bupropion Hcl Bupropion Hcl 09/06/2018 09:28:00 AM EDT 300 MG complete d [facility] 24 HR Bupropion Hydrochloride 300 MG Extended Release Oral Tablet Bupropion Hcl Bupropion Hcl 09/06/2018 09:28:00 AM EDT 300 MG complete d [facility] Trazodone Hydrochloride 50 MG Oral Tablet Trazodone Hcl Traz odone Hcl 07/08/2018 08:40:00 AM EST [facility] Trazodone Hydrochloride 50 MG Oral Tablet Trazodone Hcl Traz odone Hcl 07/08/2018 08:40:00 AM EST [facility] Trazodone Hydrochloride 50 MG Oral Tablet Trazodone Hcl Traz odone Hcl 07/08/2018 08:40:00 AM EST [facility] Trazodone Hydrochloride 50 MG Oral Tablet Trazodone Hcl Traz odone Hcl 07/08/2018 08:40:00 AM EST [facility] Trazodone Hydrochloride 50 MG Oral Tablet Trazodone Hcl Traz odone Hcl 07/08/2018 08:40:00 AM EST [facility] Trazodone Hydrochloride 50 MG Oral Tablet Trazodone Hcl Traz odone Hcl 07/08/2018 08:40:00 AM EST completed [facility] Trazodone Hydrochloride 50 MG Oral Tablet Trazodone Hcl Traz odone Hcl 07/08/2018 08:40:00 AM EST completed [facility] Trazodone Hydrochloride 50 MG Oral Tablet Trazodone Hcl Traz odone Hcl 07/08/2018 08:40:00 AM EST completed [facility] Trazodone Hydrochloride 50 MG Oral Tablet Trazodone Hcl Traz odone Hcl 07/08/2018 08:40:00 AM EST completed [facility] Trazodone Hydrochloride 50 MG Oral Tablet Trazodone Hcl Traz odone Hcl 07/08/2018 08:40:00 AM EST completed [facility] Trazodone Hydrochloride 50 MG Oral Tablet Trazodone Hcl Traz odone Hcl 07/08/2018 08:40:00 AM EST completed [facility] Trazodone Hydrochloride 50 MG Oral Tablet Trazodone Hcl Traz odone Hcl 07/08/2018 08:40:00 AM EST completed [facility] gabapentin 400 MG Oral Capsule Gabapentin Gabapentin 2013 10:47:38 AM EDT 400 MG completed [facility] gabapentin 400 MG Oral Capsule Gabapentin Gabapentin 2013 10:47:38 AM EDT 400 MG completed [facility] gabapentin 400 MG Oral Capsule Gabapentin Gabapentin 2013 10:47:38 AM EDT 400 MG completed [facility] gabapentin 400 MG Oral Capsule Gabapentin Gabapentin 2013 10:47:38 AM EDT 400 MG completed [facility] gabapentin 400 MG Oral Capsule Gabapentin Gabapentin 2013 10:47:38 AM EDT 400 MG completed [facility] gabapentin 400 MG Oral Capsule Gabapentin Gabapentin 2013 10:47:38 AM EDT 400 MG completed [facility] gabapentin 400 MG Oral Capsule Gabapentin Gabapentin 2013 10:47:38 AM EDT 400 MG completed [facility] gabapentin 400 MG Oral Capsule Gabapentin Gabapentin 2013 10:47:38 AM EDT 400 MG completed [facility] gabapentin 400 MG Oral Capsule Gabapentin Gabapentin 2013 10:47:38 AM EDT 400 MG completed [facility] gabapentin 400 MG Oral Capsule Gabapentin Gabapentin 2013 10:47:38 AM EDT 400 MG completed [facility] sildenafil 100 MG Oral Tablet [Viagra] Sildenafil (Via gra) 100 mg tablet Sildenafil (Viagra) 100 mg tablet 12/20/2012 10:04:00 AM EDT 100 MG completed [facility] sildenafil 100 MG Oral Tablet [Viagra] Sildenafil (Via gra) 100 mg tablet Sildenafil (Viagra) 100 mg tablet 12/20/2012 10:04:00 AM EDT 100 MG completed [facility] sildenafil 100 MG Oral Tablet [Viagra] Sildenafil (Via gra) 100 mg tablet Sildenafil (Viagra) 100 mg tablet 12/20/2012 10:04:00 AM EDT 100 MG completed [facility] sildenafil 100 MG Oral Tablet [Viagra] Sildenafil (Via gra) 100 mg tablet Sildenafil (Viagra) 100 mg tablet 12/20/2012 10:04:00 AM EDT 100 MG completed [facility] sildenafil 100 MG Oral Tablet [Viagra] Sildenafil (Via gra) 100 mg tablet Sildenafil (Viagra) 100 mg tablet 12/20/2012 10:04:00 AM EDT 100 MG completed [facility] sildenafil 100 MG Oral Tablet [Viagra] Sildenafil (Via gra) 100 mg tablet Sildenafil (Viagra) 100 mg tablet 12/20/2012 10:04:00 AM EDT 100 MG completed [facility] sildenafil 100 MG Oral Tablet [Viagra] Sildenafil (Via gra) 100 mg tablet Sildenafil (Viagra) 100 mg tablet 12/20/2012 10:04:00 AM EDT 100 MG completed [facility] sildenafil 100 MG Oral Tablet [Viagra] Sildenafil (Via gra) 100 mg tablet Sildenafil (Viagra) 100 mg tablet 12/20/2012 10:04:00 AM EDT 100 MG completed [facility] Insurance Providers Payer name Policy type / Coverage type Policy ID Covered libertarian ID Covered libertarian's relationship to valentino Policy Valentino Plan Information [facility] PLAN [facility] [id number] SP [id number] [facility] [id number] SP [id number] [facility] [id number] SP [id number] [facility] PLAN [facility] [id number] MEDICARE [id number] SP [id number] MEDICARE [id number] SP [id number] A [facility] HMO [id number] SP [id number] [facility] [place] [place] [id number] 18 [id number] [place] [place] [id number] 18 [id number] SELF PAY [facility] AD [id number] SP [id number] SELF PAY SELF PAY [facility] MED[facility] COMPLETE - O/P [id number] 18 [id number] [facility] MGD MEDICARE [id number] SP [id number] MEDICARE PART A-O/P [id number] 18 [id number] [facility] [place] [id number] 18 [id number] [employer] MEDICARE COMPLETE - O/P [id number] 18 [id number] [facility] Other 0 Self 0 Medicare P [id number] S [id number] a MEDICARE A [id number] Self [id number] MEDICARE PART A [id number] Patient [id number] MEDICARE PART A [id number] Patient [id number] UNICARE [id number] Patient [id number] MEDICARE A [id number] Self [id number] A MEDICARE-CLINIC [id number] undefined [id number] [facility] C [id number] S [id number] MEDICARE C [id number] S [id number] A MEDICARE PART A -I/P [id number] 18 [id number] Medicare P [id number] S [id number] [place] Self Medicare P UNAVAILABLE S UNAVAILA BLE Medicare P [id number] S [id number] a MEDICARE -O/P [id number] 18 [id number] Problems, Conditions, and Diagnoses Code Display Name Description Problem Type Effective Dates Data Source(s) 75521658 Schizoaffective disorder, depressive typ e Schizoaffective disorder, depressive type Problem 04/18/2020 12:00:00 AM EST [facility] ([facility]) Ventral hernia without obstruction or ga ngrene Ventral hernia without obstruction or gangrene Problem 02/06/2020 12:00:00 AM EDT [facility] ([facility]) [id number] Essential hypertension Essential hypertension Problem 02/06/2020 12:00:00 AM EDT [facility] ([facility]) [id number] Allergic rhinitis due to pollen Allergic rhiniti s due to pollen Problem 11/09/2019 12:00:00 AM EDT [facility] ([facility] Note: 3+ positive reaction to ragweed po llen on intradermal test. [id number] Allergic rhinitis due to house dust mite Allergic rhinitis due to house dust mite Problem 11/09/2019 12:00:00 AM EDT [facility] ([facility] Note: 4+ reaction to dust mites and cock roaches on intradermal test. [id number] Essential hypertension Essential hypertension Problem 11/09/2019 12:00:00 AM EDT [facility] ([facility] F251 Schizoaffective disorder, depressive typ e Schizoaffective disorder, depressive type Diagnosis 06/06/2020 01:55:00 PM EST [facility] D48.5 Neoplasm of uncertain behavior of skin D 48.5 - Neoplasm of uncertain behavior of skin Diagnosis 03/04/2020 04:45:00 PM EDT [facility] NONPAR NONPAR Diagnosis 03/04/2020 02:51:00 PM ED T [facility] D48.5 Neoplasm of uncertain behavior of skin N EOPLASM OF UNCERTAIN BEHAVIOR OF SKIN Diagnosis 03/04/2020 02:51:00 PM EDT [facility] ital F17.200 Nicotine dependence, unspecified, uncomp licated F17.200 - Nicotine dependence, unspecified, uncomplicated Diagnosis 02/12/2020 12:00:00 A M EDT [facility] F12.10 Cannabis abuse, uncomplicated F12.10 - Cannabis abuse, uncomplicated Diagnosis 02/12/2020 12:00:00 AM EDT [facility] F19.10 Other psychoactive substance abuse, unco mplicated F19.10 - Other psychoactive substance abuse, uncomplicated Diagnosis 02/12/2020 12:00:00 AM EDT [facility] F43.10 Post-traumatic stress disorder, unspecif ied F43.10 - Post-traumatic stress disorder, unspecified Diagnosis 02/12/2020 12:00:00 AM EDT [facility] F41.0 Panic disorder [episodic paroxysmal anxi ety] F41.0 - Panic disorder [episodic paroxysmal anxiety] Diagnosis 02/12/2020 12:00:00 AM EDT [facility] F41.1 Generalized anxiety disorder F41.1 - Generalized anxiety disorder Diagnosis 02/12/2020 12:00:00 AM EDT [facility] F31.2 Bipolar disorder, current episode manic severe with psychotic features F31.2 - Bipolar disorder, current episode manic severe with psychotic features Diagnosis 02/12/2020 12:00:00 AM EDT [facility] F22 Delusional disorders F22 - Delusional disorders Diagno sis 02/12/2020 12:00:00 AM EDT [facility] F341 Dysthymic disorder Dysthymic disorder Diagnosis 0 06:08:00 PM EDT [facility] I10 Essential (primary) hypertension Essential (primary) h ypertension Diagnosis 02/07/2020 06:08:00 PM EDT [facility] L538 Other specified erythematous conditions Other specified erythematous conditions Diagnosis 02/07/2020 06:08:00 PM EDT [facility] E860 Dehydration Dehydration Diagnosis 02/07/2020 06:08:00 PM EDT [facility] R110 Nausea Nausea Diagnosis 02/07/2020 06:08:00 PM ED T [facility] K420 Umbilical hernia with obstruction, witho ut gangrene Umbilical hernia with obstruction, without gangrene Diagnosis 02/06/2020 02:30:00 PM EDT [facility] K439 Ventral hernia without obstruction or ga ngrene Ventral hernia without obstruction or gangrene Diagnosis 02/06/2020 10:51:00 AM EDT [facility] Y[address] or not applicable Unspecified place or not applicable Diagnosis 05/29/2019 01:24:00 PM [facility] [id number] Exposure to other specified factors, ini tial encounter Exposure to other specified factors, initial encounter Diagnosis 05/29/2019 01:24:00 PM [facility] [id number] Strain of muscle, fascia and tendon of the posterior muscle group at thigh level, left thigh, initial encounter Strain of muscle, fascia and tendon of the posterior muscle group at thigh level, left thigh, initial encounter Diagnosis 05/29/2019 01:24:00 PM [facility] [id number] Sprain of unspecified site of left knee, initial encounter Sprain of unspecified site of left knee, initial encounter Diagnosis 05/29 01:24:00 PM [facility] [id number] Unspecified injury of left lower leg, in itial encounter Unspecified injury of left lower leg, initial encounter Diagnosis 05/29/2019 01:24:00 PM [facility] Surgeries/Procedures Procedure Description Date Indications Data Source(s) Computed tomography of abdomen and pelvis with contrast (pro cedure) 06/30/2020 03:52:[address] [facility] Viral antigen assay (procedure) 06/21/2020 12:00:00 AM [facility] Psychiatric Diagnostic Evaluation 04/18/2020 12:00:00 AM [facility] Cytopathology procedure, preparation of smear, genital sourc e (procedure) 02/07/2020 12:00:00 AM [facility] Cytopathology procedure, preparation of smear, genital sourc e (procedure) 02/07/2020 12:00:00 AM [facility] Cytopathology procedure, preparation of smear, genital sourc e (procedure) 02/07/2020 12:00:00 AM [facility] Cytopathology procedure, preparation of smear, genital sourc e (procedure) 02/07/2020 12:00:00 AM [facility] Cytopathology procedure, preparation of smear, genital sourc e (procedure) 02/07/2020 12:00:00 AM [facility] Blood culture for bacteria, including anaerobic screen (proc edure) 02/07/2020 12:00:00 AM [facility] Blood culture for bacteria, including anaerobic screen (proc edure) 02/07/2020 12:00:00 AM [facility] Computed tomography of abdomen and pelvis with contrast (pro cedure) 02/05/2020 09:21:00 PM [facility] Computed tomography of abdomen and pelvis with contrast (pro cedure) 02/05/2020 09:21:00 PM [facility] Computed tomography of abdomen and pelvis with contrast (pro cedure) 02/05/2020 09:21:00 PM EDT [facility] Computed tomography of abdomen and pelvis with contrast (pro cedure) 02/05/2020 09:21:00 PM EDT [facility] Computed tomography of abdomen and pelvis with contrast (pro cedure) 02/05/2020 09:21:00 PM EDT [facility] Computed tomography of abdomen and pelvis with contrast (pro cedure) 02/05/2020 09:21:00 PM EDT [facility] Computed tomography of abdomen and pelvis with contrast (pro cedure) 02/05/2020 09:21:00 PM EDT [facility] Computed tomography of abdomen and pelvis with contrast (pro cedure) 02/05/2020 09:21:00 PM EDT [facility] PERCUTANEOUS TESTS W/ALLERGENIC EXTRACTS 11/09/2019 12 :00:00 AM EDT [facility] ([facility] INTRACUTANEOUS TESTS W/ALLERGENIC EXTRACTS 11/09/2019 12:00:00 AM EDT [facility] ([facility] Results ID Date Data Source [id number] 06/30/2020 06:32:00 PM [facility] ED Physician Documentation NAME: PIPER LICEA : 1970 AGE: 49 MR#: [id number] SERVICE DATE: 06/30/[address]: Marin Masters MD PRIMARY CARE DR: Kelli Mcmanus ROOM#: HPI (Adult, General) General Chief Complaint: GI Stated Complaint: STOMACH PAIN, WEAKNESS Time Seen by Provider: 06/30/20 12:33 Source: patient Exam Limitations: no limitations History of Present Illness Narrative: Patient complains of 5-day history of progressively worsening,persistent, 10/10 severity, sharp periumbilical pain. Patient was seen at [facility] in [place] yesterday, had a CT scan of the abdomen done and was told he has a bowel infection. Patient was started on Augmentin and sent home. Patient states the pain today is much worse than itwas yesterday. No fever or chills. No nausea, vomiting, diarrhea or constipation. No blood in thestool or black stools. No trauma. No past history of diverticulitis or kidney stones. No aggravating relieving factors for his abdominal pain. Denies any alcohol or drug use. No chest pain. Allergies/Home Meds Allergies Allergy/AdvReac Type Severity Reaction Status Date / Time haloperidol [From Haldol] Allergy Unknown Other, not Verified 06/30/20 12:46 listed dust mites Allergy Severe builds up Uncoded 02/05/20 21:23 drainage in eyes , post nasal drip rag weed Allergy Severe builds up Uncoded 02/05/20 21:23 eye drainage, post nasal drip Home Medications Medication Instructions Recorded Confirmed Last Taken Type meloxicam 7.5 mg tablet 7.5 mg PO BID 90 Days #180 tab 11/29/19 06/21/20 Unknown Rx lisinopril 40 mg tablet 40 mg PO DAILY 90 Days #90 tab 01/22/20 06/21/20 Unknown Rx divalproex 500 mg tablet,delayed 500 mg PO TID 90 Days #270 tab 03/13/20 06/21/20 Unknown Rx release prazosin 1 mg capsule 1 mg PO BID 30 Days #60 cap 03/18/20 06/21/20 Unknown Rx syringe (disposable) 10 mL #1 box 04/11/20 06/21/20 Unknown Rx sertraline 100 mg tablet 100 mg PO Q24H #30 tab 05/07/20 06/21/20 Unknown Rx sertraline 50 mg tablet 50 mg PO Q24H #30 tab 05/07/20 06/21/20 Unknown Rx clonazepam 0.5 mg tablet 0.5 mg PO BID #60 tab MDD 2 06/04/20 06/21/20 Unknown Rx olanzapine 10 mg tablet 20 mg PO QPM #60 tab 06/04/20 06/21/20 Unknown Rx testosterone cypionate 200 mg/mL 200 mg IM Q2W 14 Days #1 vial MDD 06/04/20 06/21/20 Unknown Rx intramuscular oil 300 levofloxacin 750 mg PO DAILY #10 tab 06/30/20 Unknown Rx metronidazole [Flagyl] 500 mg PO TID #30 tab 06/30/20 Unknown Rx PMH (from Triage) Patient Medical History PMH Reviewed/Updated as Needed: Yes PMH/PSH from Triage: Medical History (Updated 06/21/20 @ 09:35 by Kelli Mcmanus NP) Depression (Medical) F32.9 Environmental allergies (Medical) Z91.09 Hypertension (Medical) I10 Low testosterone in male (Medical) R79.89 Sleep apnea (Medical) G47.30 Referred for sleep study and possible CPAP fitting Suspicious nevus (Medical) D22.9 Referred to derm for biopsy. Surgical History (Updated 03/13/20 @ 10:46 by Kelli Mcmanus NP) History of cardiac radiofrequency ablation (Surgical) Z98.890 x3 Umbilical hernia (Surgical) K42.9 Repaired; Dylan2019 Hx Drug Resistant Infections Hx MRSA: (Methicillin- [...] Second Hand Smoke Exposure: No Smoking Status: Never smoker Tobacco Use Years smoked:: 30 years Hx Chewing Tobacco Use: No Vaccination History Hx/Date of Tetanus, Diphtheria Vaccination: Yes Hx/Date of Influenza Vaccination: Yes Hx/Date of Pneumococcal Vaccination: Yes PFSH Medical History (Updated 06/21/20 @ 09:35 [...] Hx Recent Travel (where): No Smoking Status: Never smoker how long ago did patient quit smokin yrs ago, uses smokless tobacco though alcohol intake: never ROS Review of Systems ROS Narrative: Total of more than 10 systems were reviewed and they were all negative except as mentioned in the history of present illness. Physical Exam General Limitations: no limitations General appearance: alert and in no apparent distress Head Head exam: Present atraumatic and normocephalic Eye Eye exam: Present normal apperance; Absent scleral icterus ENT ENT exam: Present other (Normal inspection) Neck Neck exam: Present normal inspection Respiratory Respiratory exam: Absent respiratory distress GI/Abdominal GI/Abdominal exam: Present soft, tenderness (Moderate diffuse periumbilical tenderness.), guarding and rebound; Absent organomegaly and pulsatile mass Extremities Exam Extremities exam: Present normal inspection Neurological Exam Neurological exam: Present alert, oriented X3 and other (No gross neurologic deficits) Skin Skin exam: Present warm and dry Vital Signs Vital Signs: Vital Signs 06/30/20 12:21 Temperature 98.2 F Pulse Rate 88 Respiratory Rate 16 Blood Pressure 138/82 O2 Sat by Pulse Oximetry 98 MDM (comprehensive) Lab Data Labs: 06/30/20 14:40 06/30/20 14:40 Laboratory Results Last 24 hours 06/30/20 14:40: WBC 8.5, RBC 5.17, Hgb 15.9, Hct 45.3, MCV 87.6, MCH 30.8, MCHC 35.1, RDW 13, Plt Count 246, MPV 9.3, Immature Gran % (Auto) 0.4, Neut % (Auto) 72.0, Lymph % (Auto) 19.1, [place] % (Auto) 8.0, Eos % (Auto) 0.1, Baso % (Auto) 0.4, Lymph # (Auto) 1.6, Abs Immat Gran (auto) 0.0, Add Manual Diff No, Absolute Neutrophils 6.1, Monocytes # 0.7, Absolute Eosinophils 0.0, Absolute Basophils 0.0 06/30/20 14:40: Sodium 132, Potassium 3.9, Chloride 98 L, Carbon Dioxide 26, Anion Gap 12, BUN 6 L, Creatinine 0.7, GFR Calculation Greater than 60, Glucose 109 H, Calcium 8.8, Total Bilirubin 0.6, AST 17, ALT 31, Alkaline Phosp hatase 69, Serum Total Protein 6.9, Albumin 3.8, Amylase 46, Lipase 99 06/30/20 16:30: Urine Color Yellow, Urine Appearance Clear, Urine pH 7.0, Ur Specific Apex 1.016, Urine Protein Negative, Urine Ketones 15 mg/dl A, Urine Blood Negative, Urine Nitrate Negative, Urine Bilirubin Negative, Urine Urobilinogen 0.2 eu/dl, Ur Leukocyte Esterase Negative, Add Ur Microanalysis No, Urine Glucose Negative Radiology Data Radiology impressions: CT abdomen and pelvis-thickening of the rectal wall. Medical Decision Making Free Text/Narative:: Patient refused transfer to a hospital with a plasterer spray gun for proctoscopy and biopsy of the rectum to exclude cancer or inflammatory bowel disease. I discussed the risks of refusing transfer including and disability. Patient states he will follow-up with his primary care doctor tomorrow and get a GI referral for proctoscopy/sigmoidoscopy and biopsy. I will DC patient's Augmentin and try levofloxacin plus Flagyl for possible infectious proctitis. Differential Diagnosis Differential Diagnosis: Pancreatitis, diverticulitis, peptic ulcer disease, appendicitis, cholecyst Plan Visit Medications Administered ED medications:: Medications Discontinued Medications Generic Name Dose Route Start Last Admin Trade Name Freq PRN Reason Stop Dose Admin Sodium Chloride 1,000 mls @ 999 mls/hr 06/30/20 14:23 06/30/20 15:42 Ns 0.9% IV 06/30/20 15:23 Infused .Q1H1M ONE Infusion Sodium Chloride 1,000 mls @ 200 mls/hr 06/30/20 14:23 06/30/20 16:52 Ns 0.9% IV 06/30/20 19:22 Not Given .Q5H ONE Ketorolac Tromethamine 30 mg 06/30/20 14:23 06/30/20 14:41 Ketorolac Tromethamine 30 Mg/Ml Sdv IVP 06/30/20 14:24 30 mg 1T ONE Administration Ondansetron HCl 4 mg 06/30/20 14:23 06/30/20 14:40 Ondansetron Hcl/Pf 4 Mg/2 Ml Sdv IVP 06/30/20 14:24 4 mg 1T ONE Administration Other Medications: New: metronidazole (Flagyl) 500 mg PO TID 30 tabs 0RF levofloxacin 750 mg PO DAILY 10 tabs 0RF Discontinued: amoxicillin-pot clavulanate 875-125 mg Discontinued Reason: MD Order 1 tab PO BID 10 days 20 tabs 0RF Discharge Plan Admission/Discharge Dx Primary DC Diagnosis: Proctitis ED Provider: Marin Masters ED Status: Discharged Time Seen by Provider: 06/30/20 12:33 Triaged At: 06/30/20 12:21 Condition Condition: Fair Discharge Detail Disposition: Home, Self-Care Med Rec New Prescriptions: New metronidazole [Flagyl] 500 mg tablet 500 mg PO TID Qty: 30 RF: 0 levofloxacin 750 mg tablet 750 mg PO DAILY Qty: 10 RF: 0 Discontinued amoxicillin-pot clavulanate 875-125 mg tablet 1 tab PO BID 10 Days Qty: 20 RF: 0 No Action divalproex 500 mg tablet,delayed release (DR/EC) 500 mg PO TID 90 Days Qty: 270 RF: 3 sertraline 50 mg tablet 50 mg PO Q24H Qty: 30 RF: 6 sertraline 100 mg tablet 100 mg PO Q24H Qty: 30 RF: 6 o lanzapine 10 mg tablet 20 mg PO QPM Qty: 60 RF: 3 clonazepam 0.5 mg tablet 0.5 mg PO BID MDD 2 Qty: 60 RF: 0 testosterone cypionate 200 mg/mL oil 200 mg IM Q2W MDD 300 14 Days Qty: 1 RF: 0 meloxicam 7.5 mg tablet 7.5 mg PO BID 90 Days Qty: 180 RF: 3 lisinopril 40 mg tablet 40 mg PO DAILY 90 Days Qty: 90 RF: 3 prazosin 1 mg capsule 1 mg PO BID 30 Days Qty: 60 RF: 3 (DME) BD Luer-Yanira Tip Control Syring 10 mL syringe 1 ea miscellaneous Q2W 30 Days Qty: 1 RF: 3 Discharge Education Printouts: Proctitis (ED) Follow Up Visit/Referrals: Kelli Mcmanus NP [Primary Care Provider] - (Follow-up in 2 to 3 days) Medications Medication reconciliation performed by provider at discharge: Yes *Discharge Patient* Discharge Orders: Discharge Order (Routine); Ordered 06/30/20 Ordered By: Marin Masters Discharge Date/Time: 06/30/20 17:18 Interventions Interventions: ED Discharge Instructions Last Done: 06/30/20 17:12 ED GI Gastrointestinal Last Done: 06/30/20 12:44 Report Signers: <Electronically signed by Marin Masters MD> Marin Masters MD 06/30/201837 Marin Masters MD SIGNATURE DA Report Cosigners: D: ZOEY 06/30/201831 T: ZOEY 06/30/201831 CC: Kelli Mcmanus Name Value Range Interpretation Code Description Data [place] rce(s) Supporting Document(s) ID Date Data Source [id number] 06/30/2020 04:46:00 PM EST [facility] Reason for ordering culture: Abnormal fi ndings UAMethod of Collection:: Voided Name Value Range Interpretation Code Description Data [place] rce(s) Supporting Document(s) Color of Urine [facility] Appearance of Urine CLEAR [facility] pH of Urine by Test strip 7.0 5-8 [facility] Specific gravity of Urine by Refractometry 1.016 1.005-1.030 [facility] Leukocyte esterase [Presence] in Urine by Test strip NEGAT JALEN [facility] Nitrite [Presence] in Urine by Test strip NEGATIVE [facility] Protein [Presence] in Urine by Test strip NEGATIVE [facility] Glucose [Mass/volume] in Urine by Automated test strip NEGATIVE NEG ATIVE [facility] Ketones [Presence] in Urine by Test strip NEGATI VE Abnormal (applies to non- numeric results) [facility] Urobilinogen [Presence] in Urine 0.2-1 EU/dl [facility] Bilirubin.total [Presence] in Urine by Automated test strip NEGATIVE [facility] Erythrocytes [#/volume] in Urine by Test strip NEGATIVE NEGATIVE [facility] URINE MICROSCOPIC? (CIF) NO [facility] ID Date Data Source [id number] 06/30/2020 04:00:00 PM EST [facility] [address] [place] [address] [phone] NAME SEX PT STATUS ACCOUNT NUMBER PIPER LICEA [facility] ER [id number] ORDERING PHYSICIAN LOCATION MEDICAL RECORD NO. Marin Masters MD ER [id number] ATTENDING PHYSICIAN DATE OF DATE OF EXAM/TIME Kelli Mcmanus NP 1970 06/30/20 / 1552 TYPE / EXAM CT Abd/pel w/ contrast REASON FOR EXAM Periumbilical pain Clinical History/Indication for Exam: Periumbilical pain CT ABDOMEN AND PELVIS WITH INTRAVENOUS CONTRAST INDICATION: Periumbilical pain TECHNIQUE: Axial computed tomography images of the [...] relevant prior studies available. FINDINGS: Lung bases: Left lung scar ABDOMEN: Liver: Unremarkable. No mass. Gallbladder and bile ducts: Unremarkable. No calcified stones. No ductal dilation. Pancreas: Unremarkable. No mass. No ductal dilation. Spleen: Unremarkable. No splenomegaly. Adrenals: Unremarkable. No mass. Kidneys and ureters: Unremarkable. No solid mass. No hydronephrosis. Stomach and bowel: Circumferential nearly uniform Wall thickening of the rectum possibly reflecting proctitis, prior proctitis or inflammatory bowel disease, less likely infiltrative mass. Scattered diverticulosis without focal diverticulitis. No obstruction. PELVIS: Appendix: Normal appendix Bladder: Unremarkable. No mass. Reproductive: Unremarkable as visualized. ABDOMEN and PELVIS: Intraperitoneal space: Unremarkable. No free air. No significant fluid collection. Bones/joints: Macro bone 3 Soft tissues: Periumbilical hernia. Fat- containing periumbilical hernia without evidence of incarceration. 2 cm defect. Not particularly narrowed. Inguinal canal fat-containing hernia(s). Vasculature: Unremarkable. No abdominal aortic aneurysm. Lymph nodes : Unremarkable. No enlarged lymph nodes. IMPRESSION: 1. Circumferential nearly uniform Wall thickening of the rectum possibly reflecting proctitis, prior proctitis or inflammatory bowel disease, less likely infiltrative mass. 2. Periumbilical hernia. Automatic exposure control was used as a dose lowering technique. Contrast Type: isovue 300. Contrast Volume: 100cc REPORT SIGNATURE ON FILE 06/30/2020 (16:00 Eastern Time ) Signed by: Crow Padilla M.D. Reported By Crow Padilla MD on 06/30/20 1600 Signed By Crow Padilla MD on 06/30/20 1600 Date Time CC: Kelli Mcmanus; Crow Padilla MD Techn: FROSA Trans Dt/Tm: Trans by: DT Prt Dt/Tm: : Total DLP = 1066.00 mGy-cm : Total Radiation Dose = 15.9900 mSv Lifetime Dose: 33.1650 mSv Name Value Range Interpretation Code Description Data [place] rce(s) Supporting Document(s) ID Date Data Source [id number] 06/30/2020 03:06:00 PM EST [facility] Name Value Range Interpretation Code Description Data [place] rce(s) Supporting Document(s) Urea nitrogen [Mass/volume] in Serum or Plasma 6 mg/dL 9-23 Below low normal [facility] Sodium [Moles/volume] in Serum or Plasma 132 mmol/L 132-146 [facility] Potassium [Moles/volume] in Serum or Plasma 3.9 mmol/L 3.5-5.5 [facility] Chloride [Moles/volume] in Serum or Plasma 98 mmol/L 99-109 [place] w low normal [facility] Carbon dioxide, total [Moles/volume] in Serum or Plasma 26 mmol/L 20 -31 [facility] Anion gap in Serum or Plasma 12 mmol/L 8-16 [facility] Glucose [Mass/volume] in Serum or Plasma 109 mg/dL 74-106 Above high normal [facility] Creatinine 0.7 mg/dL 0.5-1.1 [facility] Glomerular filtration rate/1.73 sq M.pre dicted [Volume Rate/Area] in Serum or Plasma Greater Than 60 ABOVE 60 [facility] Alanine aminotransferase [Enzymatic acti vity/volume] in Serum or Plasma by With P-5'-P 31 U/L 10-49 [facility] ital Aspartate aminotransferase [Enzymatic ac tivity/volume] in Serum or Plasma by With P-5'-P 17 U/L 0-33 [facility] pital Alkaline phosphatase [Enzymatic activity/volume] in Serum or Plasma 69 U/L 45-129 [facility] Calcium [Mass/volume] in Serum or Plasma 8.8 mg/dL 8.5-10.1 [facility] Bilirubin.total [Mass/volume] in Serum or Plasma 0.6 mg/dL 0.3-1.2 N [facility] Albumin [Mass/volume] in Serum or Plasma by Bromocresol purple (BCP) dye binding method 3.8 g/dL 3.2-4.8 [facility] ital Protein [Mass/volume] in Serum or Plasma 6.9 g/dL 5.7-8.2 [facility] ID Date Data Source [id number] 06/30/2020 03:06:00 PM [facility] Name Value Range Interpretation Code Description Data [place] rce(s) Supporting Document(s) Amylase [Enzymatic activity/volume] in Serum or Plasma 46 U/L 30- 118 [facility] ID Date Data Source [id number] 06/30/2020 03:06:00 PM [facility] Name Value Range Interpretation Code Description Data [place] rce(s) Supporting Document(s) Lipase [Enzymatic activity/volume] in Serum or Plasma 99 U/L 73-3 93 N [facility] ID Date Data Source [id number] 06/30/2020 02:47:00 PM [facility] Name Value Range Interpretation Code Description Data [place] rce(s) Supporting Document(s) Leukocytes [#/volume] in Blood by Automated count 8.5 10*3/uL 4.45-10 .71 N [facility] Erythrocytes [#/volume] in Blood by Automated count 5.17 10*6/uL 4.3- 6.1 [facility] Hemoglobin [Moles/volume] in Blood 15.9 g/dL 13-18 [facility] Hematocrit [Volume Fraction] of Blood by Automated count 45.3 % 4 2-52 [facility] Erythrocyte mean corpuscular volume [Ent itic volume] in Cord blood by Automated count 87.6 fL 80-96 [facility] ital Erythrocyte mean corpuscular hemoglobin [Entitic mass] by Automated count 30.8 pg 27-31 [facility] E[facility] mean corpuscular hemoglobin concentration [Mass/volume] in Cord blood 35.1 g/dL 33-37 [facility] ital Erythrocyte distribution width [Entitic volume] by Automated count 13 % 11-15 N [facility] Platelets [#/volume] in Blood by Automated count 246 10*3/uL 130-472 N [facility] Platelet mean volume [Entitic volume] in Blood 9.3 fL 9.1-13.1 N [facility] Neutrophils/100 leukocytes in Blood by Automated count 72.0 % 41- 77 N [facility] Neutrophils [#/volume] in Blood by Automated count 6.1 U 1.7-7.6 N [facility] Lymphocytes/100 leukocytes in Blood by Automated count 19.1 % 14- 46 N [facility] Lymphocytes [#/volume] in Blood by Automated count 1.6 U 0.6-4.6 N [facility] Monocytes/100 leukocytes in Blood by Automated count 8.0 % 4-12 N [facility] Monocytes [#/volume] in Blood by Automated count 0.7 U 0.2-1.2 N [facility] Eosinophils/100 leukocytes in Blood by Automated count 0.1 % 0-7 [facility] Eosinophils [#/volume] in Blood by Automated count 0.0 U 0.0-0.5 N [facility] Basophils/100 leukocytes in Blood by Automated count 0.4 % 0.4-1 .3 N [facility] Basophils [#/volume] in Blood by Automated count 0.0 U 0.0-0.2 N [facility] NUCLEATED RED BLOOD CELL 0 % [facility] NUCLEATED RED BLOOD CELL# 0 U [facility] Immature granulocytes [Presence] in Blood by Automated count 0-2 N [facility] Immature granulocytes [#/volume] in Blood by Automated count 0.0 U 0-0.1 N [facility] Manual Differential panel - Blood NO [facility] ID Date Data Source [id number] 06/22/2020 12:00:00 AM EST [facility] Name Value Range Interpretation Code Description Data Geneva rce(s) Supporting Document(s) SARS-CoV-2 (COVID-19) RNA [Presence] in Respiratory specimen by RICARDO with probe detection Not Detected [facility] This lab was ordered by [facility] and reported by [employer]. ID Date Data Source [id number] 06/21/2020 06:08:00 PM [facility] Normal result is "BinaxNow Covid-19 Ag n egative"BinaxNow Covid-19 Ag is a rapid lateral flowimmunochromatographic immunoassayThis test detects both viable(live) and non-viable, SARS-COVand SARS-COV-2.Positive test results do not differentiate between SARS-COVand SWCK-EPB-1Goupcbfy results , from patients with symptom onset beyondseven days, should be treated as presumptive andconfirmation with a molecular assay, if necessary, forpatient managementIf the differentiation of specific SARS viruses and strainsis needed, additional testing, in consultation with stateand local public health departments, is required.SARS-CoV-2 Ag Resp Ql IA.rapid Name Value Range Interpretation Code Description Data Geneva rce(s) Supporting Document(s) ID Date Data Source [id number] 06/21/2020 05:19:00 PM EST [facility] Name Value Range Interpretation Code Description Data Geneva rce(s) Supporting Document(s) SARS-CoV-2 (COVID-19) Ag [Presence] in R espiratory specimen by Rapid immunoassay BinaxNow Covid -19 Ag Negative [facility] This lab was ordered by [facility] and reported by [facility]. ID Date Data Source [id number] 06/21/2020 09:31:00 AM [facility] Patient Name: PIPER LICEA : 1970 Sex: M Pt Unit #: [id number] Location:[facility] Provider: Visit Date/Time: 06/21/20 Primary Insurance: [employer] Secondary Insurance: Self Pay Intake Intake Visit [...] Screening Screening Have you traveled outside of [facility] or [facility] in the last 14 days.: No Has [...] of nose and nasal sinuses SNOMED Code(s): 96834911 Category: Medical (2) Headache: Status: Acute Code(s): R51.9 - Headache, unspecified SNOMED Code(s): 66430062 Category: Medical Additional Comments Additional Comments: I [...] Headache R51.9 <Electronically signed by Kelli Mcmanus SUPERVISOR POLE [employer]ARD> 06/21/20 0938 Name Value Range Interpretation Code Description Data Geneva rce(s) Supporting Document(s) ID Date Data Source [id number] 06/04/2020 01:18:00 PM [facility] Patient Name: PIPER LICEA : 1970 Sex: M Pt Unit #: [id number] Location:[facility] Provider: Visit Date/Time: 06/04/20 Primary Insurance: [employer] Secondary Insurance: Self Pay Intake Vital Signs [...] drip Medications - Last Reconciled 06/04/20 by Kellibridgette Mcmanus NP clonazepam 0.5 mg PO BID [...] and colleagues, with an educational elie from [employer]. HIV Testing Offer - ages 13-64 HIV testing Offer: No Coronavirus Screening Screening Have you traveled outside of [facility] or [facility] in the last 14 days.: No Has patient experienced coronavirus symptoms: No [facility] Medical History (Updated 04/04/20 @ [...] depressive disorder, single episode, unspecified SNOMED Code(s): 72477858 Category: Medical Plan - Kelli Mcmanus NP: Continue 150mg sertaline. See back in 2-3 months for annual PE. Continue to see [facility] weekly. Additional Comments Additional Comments: Paper completed for DMV. Orders Other Medications: Changed: From: olanzapine 10 mg PO QPM 30 days 30 tabs 3RF To: olanzapine 20 mg (2 x 10 mg) PO QPM 60 tabs 3RF Coding Level of Care Code 30783 Est Pt Limited Comp Exam Problem Focused Diagnoses Depression F32.9 <Electronically signed by Kelli Mcmanus [employer]PER[employer]> 06/04/20 1349 Name Value Range Interpretation Code Description Data Geneva rce(s) Supporting Document(s) ID Date Data Source [id number] 05/07/2020 10:59:00 AM [facility] Patient Name: PIPER LICEA : 1970 Sex: M Pt Unit #: [id number] Location:[facility] Provider: Visit Date/Time: 05/07/20 Primary Insurance: [employer] Secondary Insurance: Self Pay Intake Vital Signs [...] gives 2 needles-can he get more), klonopin. Ticket Sorter Required: No Allergies dust mites Allergy (Severe, Uncoded 02/05/20 21:23) builds up drainage in eyes , post nasal drip rag weed Allergy (Severe, Uncoded 02/05/20 21:23) builds up eye drainage, post nasal drip Medications - Last Reconciled 05/07/20 by Kelli Mcmanus NP clonazepam 0.5 mg [...] and colleagues, with an educational elie from [employer]. HIV Testing Offer - ages 13-64 HIV testing Offer: No Coronavirus Screening Screening Have you traveled outside of [facility] or [facility] in the last 14 days.: No Has patient experienced coronavirus symptoms: No [facility] Medical History (Updated 04/04/20 @ [...] attempt. Has been able to get into [facility] for therapy and this has been going [...] depressive disorder, single episode, unspecified SNOMED Code(s): 13430627 Category: Medical Plan - Kelli Mcmanus NP: Has an appt tomorrow with mental health. [...] cypionate Inject 1ml into muscle Q2 week CULINARY ARTS TEACHER:[id number] 200 mg IM Q2W 14 days 1 vial 0RF MDD 300 R79.89 Follow Up: 1 Month (Mental health) <Electronically signed by Kelli Mcmanus SUPERVIS[employer]> 05/07/20 1308 Name Value Range Interpretation Code Description Data Geneva rce(s) Supporting Document(s) ID Date Data Source [id number] 05/06/2020 11:29:00 AM EST [facility] ([facility]) Name Value Range Interpretation Code Description Data Geneva rce(s) Supporting Document(s) PDF Laboratory test result [facility] ([facility]) {DIAGNOSIS: F25.1~{MEDICATIONS/DECLARED : CLONAZEPAM DEPAKOTE MELOXICAM PRAZOSIN~{PRESCRIPTION I Laboratory test finding (navigational concept) Laboratory test result [facility] ([facility]) {DIAGNOSIS: F25.1~{MEDICATIONS/DECLARED : CLONAZEPAM DEPAKOTE MELOXICAM PRAZOSIN~{PRESCRIPTION I ID Date Data Source [id number] 05/11/2020 06:59:00 AM EST [facility] Name Value Range Interpretation Code Description Data Geneva rce(s) Supporting Document(s) Drugs identified in Urine FINAL [employer] TOXASSURE SELECT 13 (MW) Test Result Flag [...] clinical consultation, please call . Report . [facility] ID Date Data Source [id number] 04/24/2020 11:41:00 AM EST [facility] Patient Name: PIPER LICEA : 1970 Sex: M Pt Unit #: [id number] Location:[facility] Provider: Visit Date/Time: 04/24/20 Primary Insurance: [employer] Secondary Insurance: Self Pay Intake Vital Signs [...] Screening Screening Have you traveled outside of [facility] or [facility] in the last 14 days.: No Has patient experienced coronavirus symptoms: No [facility] Medical History (Updated 04/04/20 @ [...] F41.9 - Anxiety disorder, unspecified SNOMED Code(s): 44934710 Category: Medical Plan - Kelli Mcmanus NP: Anxiety at baseline. Will keep follow up for next month. Paperwork completed. No concerns today. <Electronically signed by Kelli Mcmanus SUPERVISOR POLE YARD> 04/24/20 1301 Name Value Range Interpretation Code Description Data Geneva rce(s) Supporting Document(s) ID Date Data Source [id number] 04/09/2020 07:37:00 AM EST [facility] Name Value Range Interpretation Code Description Data Geneva rce(s) Supporting Document(s) Free Testosterone (Direct) 218.6 pg/mL 46.0-224.0 [facility] The concentration of free testosterone i s derivedfrom a mathematical model using total testosteroneby LCMSMS, sex hormone binding globulin and albumin.This test was developed and its analytical performancecharacteristics have been determined by [facility] [place], [place]. It hasnot been cleared or approved by the U.S. Food and DrugAdministration. This assay has been validated pursuantto the CLIA regulations and is used for clinicalpurposes.THIS TEST WAS PERFORMED AT:[id number] [place] [address]SSIKBHYBLAISE FOY MD,PHD ID Date Data Source [id number] 04/09/2020 07:37:00 AM [facility] Name Value Range Interpretation Code Description Data Geneva rce(s) Supporting Document(s) Testosterone 649 ng/dL [id number] [facility] THIS TEST WAS PERFORMED AT:[employer] [address] [address]VOPLIF MERATI,MD ID Date Data Source [id number] 04/04/2020 10:05:00 AM [facility] Patient Name: PIPER LICEA : 1970 Sex: M Pt Unit #: [id number] Location:[facility] Provider: Visit Date/Time: 04/04/20 Primary Insurance: [employer] Secondary Insurance: Self Pay Intake Vital Signs [...] still suffering with severe depression and anxiety. Ticket Sorter Required: No Accompanied by: Self / Same [...] Screening Screening Have you traveled outside of [facility] or [facility] in the last 14 days.: No Has [...] depressive disorder, single episode, unspecified SNOMED Code(s): 14642175 Category: Medical Orders: Referrals: Mental Health Referral (3) Anxiety: Status: Acute Code(s): F41.9 - Anxiety disorder, unspecified SNOMED Code(s): 69398601 Category: Medical Orders: Referrals: Mental Health Referral (4) PTSD (post-traumatic stress disorder): Status: Acute Code(s): F43.10 - Post-traumatic stress disorder, unspecified SNOMED Code(s): 78846520 Category: Medical (5) Paranoia: Status: Acute Code(s): F22 - Delusional disorders SNOMED Code(s): 645967991 Category: Medical Additional Comments Additional Comments: Increased sertraline to 100mg. Will consider changing his xanax to clonazepam. He will be reaching out to Tee at [facility] [place], to see if he can get back [...] cypionate Inject 1.5ml into muscle Q2 week CULINARY ARTS TEACHER:[id number] 300 mg (1.5 mL) IM Q2W 14 days 1.5 vials 0RF MDD 300 R79.89 To: testosterone cypionate Inject 1ml into muscle Q2 week CULINARY ARTS TEACHER:[id number] 200 mg IM Q2W 14 days 1 vial 0RF MDD 300 R79.89 Discontinued: sertraline Discontinued Reason: Clinically Indicated 50 mg PO Q24H 30 days 30 tabs 3RF Other Orders: Orders: Free Testosterone (Direct) 1 Month R79.89 Testosterone, Total, Male 1 Month R79.89 <Electronically signed by Kelli Mcmanus NP> 04/04/20 1034 Name Value Range Interpretation Code Description Data Geneva rce(s) Supporting Document(s) ID Date Data Source [id number] 03/13/2020 10:01:00 AM EDT [facility] Patient Name: Piper Licea : 1970 Sex: M Pt Unit #: [id number] Location:[facility] Provider: Visit Date/Time: 03/13/20 Primary Insurance: [facility] Secondary Insurance: Self Pay Intake Vital [...] in the am and 1000mg at HS. Ticket Sorter Required: No Accompanied by: Self / Same [...] Screening Screening Have you traveled outside of [facility] or [facility] in the last 14 days.: No Has patient experienced coronavirus symptoms: No PFSH Medical History (Updated 03/13/20 @ 10:46 by Kelli Mcmanus NP) Depression Environmental allergies Hypertension Low testosterone in male Sleep apnea Suspicious nevus Afluria Qd 2019-(3yr up)(PF) Performing Provider: Kelli Mcmanus NP Administered by: Jacquelin Alamo on 10/14/20 10:50 Surgical History (Updated 03/13/20 @ 10:46 [...] up on medications. He was recently in [place], admitted for vivid nightmares, and PTSD. He [...] Route Admin Location Lot Number Expiration Date [facility] Manufactu rer 60 mcg IM Left deltoid [id number] 11/27/20 96393-029-29 [employer] VIS Given Date VIS Provided VIS Publication Date 03/13/20 Single Vaccine 20 Eligibility Eligibility Date Funding Source Not [facility] Eligible 03/13/20 Private Assessment Plan Assessment Plan (1) Encounter for medication adjustment: Code(s): Z51.89 - Encounter for other specified aftercare (2) Depression: Status: Acute Code(s): F32.9 - Major depressive disorder, single episode, unspecified Category: Medical Plan - Kelli Mcmanus NP: He is doing well on new medications. [place], [place], he is unable to be seen [...] Today Z23 <Electronically signed by Kelli Mcmanus SUPERVISOR POLE YARD> 03/13/20 1138 Name Value Range Interpretation Code Description Data Geneva rce(s) Supporting Document(s) ID Date Data Source [id number] 03/06/2020 05:32:01 PM EDT [facility] Name Value Range Interpretation Code Description Data Geneva rce(s) Supporting Document(s) PATHOLOGY RESULT () N [facility] Name: PIPER LICEA : [address]: Eb Becker PAAcct: [id number] Unit: [id number] AGE: 49 Location: [facility] NPRe03/04/20 SEX: M Status: REG REF . SPEC: [id number] MARISABEL: 03/04/20-1417 [facility] DR: Eb Becker PAREQ: [id number] RECD: 03/04/20STATUS: SOUT_ORDERED: LEVEL 4COMMENTS: [id number] . FINAL DIAGNOSISSkin, sternum, biopsy:-- Excoriation.-- No [...] END OF REPORT .. DEPARTMENT OF PATHOLOGY, [address] [place] [address] Lucien Puckett M.D. Director [facility] # [id number]. ID Date Data Source [id number] 03/06/2020 10:30:01 AM EDT [facility] Name Value Range Interpretation Code Description Data Geneva rce(s) Supporting Document(s) ID Date Data Source [id number] 03/05/2020 10:21:00 AM EDT [facility]#[id number]_ Name: PIPER LICEA : [address]: Eb MARTEL Acct: [id number] Unit: [id number] AGE: 49 Location: [facility] Re03/04/20 SEX: M Status: REG REF SPEC: [id number] MARISABEL: 03/04/20-1418 SUBM : Eb MARTEL REQ: [id number] RECD: 03/04/20 STATUS: SOUT _ORDERED: LEVEL 4 COMMENTS: [id number] FINAL DIAGNOSIS Skin, sternum, biopsy:-- Excoriation.-- No [...] 1021 END OF REPORT DEPARTMENT OF PATHOLOGY, [address] [place] [address] Lucien Puckett M.D. Director [facility] # [id number] Name Value Range Interpretation Code Description Data Geneva rce(s) Supporting Document(s) ID Date Data Source [id number] 02/12/2020 09:57:00 AM EDT [facility] Name Value Range Interpretation Code Description Data Geneva rce(s) Supporting Document(s) SARS-CoV-2 (COVID-19) N gene [Presence] in Nasopharynx by RICARDO with probe detection [facility] This lab was ordered by [facility] and reported by [facility]. ID Date Data Source [id number] 02/12/2020 07:42:00 PM EDT [facility] COVID Reason ED patient Priority Name Value Range Interpretation Code Description Data Geneva rce(s) Supporting Document(s) COVID 19 (RHEONIX) NOT-DETECTED NOTDETECTED [facility] The DuX[employer] COVID-19 MDx Assay is an en dpoint RT-PCR assay intended for the qualitative detection of nucleic acid from SARS-CoV-2 in nasopharyngeal swabs. COVID testing using the DuXplorex analyzer was developed for the purpose of [...] public health authorities. ID Date Data Source [id number] 02/12/2020 04:46:00 [place] [address] RESPIRATORY CARE REPORT ==== ---------NAME------- NUMBER SEX AGE ADMIT DISC. XRAY# F/C TYPENATALIYA [place] [id number] M 49 02/07/20 02/08/20 [id number] [place] O/P DATE OF : 1970 M/R# [id number] #: [id number] LOCATION: EMERGENCY DEPT [facility] [address] COMP LETE:02/08/20 07:15 [place] [address] PHYSICIAN: SYLVIA SCHAEFER Name Value Range Interpretation Code Description Data Geneva rce(s) Supporting Document(s) ID Date Data Source [id number] 02/12/2020 04:30:43 AM EDT [facility] Name Value Range Interpretation Code Description Data Geneva rce(s) Supporting Document(s) EKG/ECG IN ED [facility] [file] 2aF4P1MafLja4bNErUU8ouaflRkGHXAWnBzXoBL3K3w2pO01mSShYK1USXrz2//López/uOh788U9iy/s [file] gxCiiigAooooAKKKKACiiigAooooAKKKKACiiigAooooAKKKKACiiigAooooAKKKKACiiigAooooAKKK MAIkpriFfydeS5egD4+2/4F/VrEatmHrdwho1sBkuwn/RC4OZWYoJMmDImFpsuyDDQNchuIs3q+tJRRQ Agi0sAhyxEbC+8frRRTGJRRRSEFLRRQMG+8frSUUUA W5pirkpYEjrM0lurJDn8FMBxMGsBSZgm6e+fVMPAGq0bPnzlTOI70t8cTSTxFQEQOtscMIMHwyQ99fWZ NA6rNiteILLYogQ52VOa2WrJTYJMpiKVCT18a0hTswjRagpwulGhiM+1umSVWSWL4uroZElxaoLP+8fr WSSASW9bOCFOTr/er6r0T/kAad/16xf+giiiqidmE3 ZfrX8N/rVWZm2R86Y+YooqnsdFf+WH7rjlxponwdlkbHUSPOLTokavZcwwyUVEKOXYpiswVotswZNRSG ACiiigAooooAKKKKACiiigAooooAKKKKACiiigAooooA//0M2KKO7pc9NdDQBpPQfgstZhEriUQtO5OW Qau2ZpAYk3PO2RrOLyB97wbnK9zD1ZXCiyNclts2Rl LYPqDpfvrSUnM4VjPLSoKUDie8CyY8xretj1xRWgHZW+Nm0Vy8HnJQEbUYi9xJ9CLGbEPNUGg5X/cGM7 uBbaV7gLgQsWqVd0AGwssAimEjs/o3AjpjWBxqbyeiwXhEMEPHGVoXVXFFLvUqxrnkdIBGLWnQFpkNWw Td9fEQcvuBx0XcOGqYmlDBC4bwd7KxKHSV+GV7RE01 8SqDGbdGcyyB8kO3GyZmxTec5edi+YmItUgvvgfR45ZjcMiZL2cCqxeDXBnl6Pu5npCYck0KHTf7+1WK mEbZqkgnk8Xyn/yktM1HoqV0P3VbsBMrWAVmUyMWG9rgDfxH8ZQE2qe0JsRNkcJIMhYQ9wxo9KLWgnFR JvZHVjZXIo/f2OJSEjNOHMosVpQURRjwWuCZOXyoPb FJ7MVzImQUmVIzVhFZWKHuMhKXWOHPGeJEEDYXDnZAulR5YhLLS3c9Yt/q7IARHrURXWrpQwUNMBsbKo MGKFsoPuLX5QVwPlISjIUkCrEEPRNoXrHBTBRFAaNGRATYUoRIpcQ9XmOCK8iT1mFTW0HNzRKvRlQeHv OID8KEpwIcSlSKVfUY2sOTA2YWiHZmUgSzClRWQ0TR gzMzEyKSA+Di9DOS3ab6EwOIrhGLLgTS6uqs3FCwUiQSMyRP5ITE4bk8BlNHhxBGSrFS9hcf1YCvVwCL AaPX5SMG6ll1VaJTpqCOPyLT2dvu4TZKswDGnoXZ8JBhGiH1NaxdUmWyZgP2uwBIL0MVAvZK4Lt631VE NnYTXCS3mnXo6oVMzwMHQYL3tFZrl6FKGuFPQeZJE3 V4TsTSLJKFMIEYP1UxfPNHC3ENHtBO37TvO9ZAfDYAW4BAUEWPZ4BTIVAvLRZYA8UUTMKWZrJBH+XSAv GsayxOZxA6JuYEFqWSBbc5XvV1bnngl9fTR9AO3+ILbnvHTeYW9WIloeT4CQqz//GYGkIAMDiKqFUFvB IJHqBPO4X4xjZiULFQ0lgjPzKIHJPvPEJkPSSJBKD6 IcpdYIFUovdZ1FlWqkJbySKZXRvvxrcQy+AgRkO8IROP/qF5WTIzGuYBI4xaTklU7KLY8yv1IpEZs2ed GrSGpsSQBzXJwiNMIrZPMvTBWcQUL5MRV4LISFMlOhVBLdWWRdAVxwFLVkZIHujo7AEWRgNLHzCTDvJJ TaMQEhVWCzDEcgPHDvAMYfUWosNGZbHLAkYZ0DAxQs NWNnZKQ9FJScBMDkOLRwbo4PKURpVKIxYMhpGNNlDWOgICIjGWjsQIEzMXLpGLJkKSQvHZNnKX9LNwPi RYMpZDIbFTXtMFNeYFNuxj4AVUDvQLGuMQYsEfXjBAUuVXLwZLcgPKBmBCPuNPV4XYMpSHOrLJ2AXqMd VQGxTTOtHUQjVrG1AqYfSe7RZHLbHIZzPCIyOiA2NF ThFMAwNVnsVJAoRGDaQOIrVQG7EOB0ADAYBdScPVCqNYGkGQLbIeH3SpQnKr0IRNJnTAJjVGRfEOK5LX KqJDQjWUnsILNuPXTdSXE1SFA0QOX4STSGQyUvQMPvBFPfLPklAkC0AaBfFs6MKFLmVKOdPKRsALU4DE CdOGCwFUnqMTPdNcV8DmKeOWXlHQMtHJ8YBjLmXAMf Ajg5IOvzRCFvOZBwmu9MIVVpVHUhFmM7DmZmUSSoGNDmUTiyRZDiSdE5HPfoDHQcGQReFG5WQdPqGNyq WNXKTzz9U0ThaiHfOoNlIf6odWZjPQLnEv6RsvUdAZY3RDZtMq0VQPa5RzA5GUmULLY3EHPFKPH4UFIL VfEZBPA4CXAYBTTmKHI+CXi0EsC2GPDjJTuwEwU2ED LFDjYZCNpTMKXQYDuxCoZZIx8aRe9YXkO3ETG6sJPbCu4UIaC5BkEjHTqbGVUFCg5HcMRoYv2CUPTpPP l5mvEuoVDlAQn1DW9TuOhbBRCvH0Hjn3EkTHZoAJOkUP7gspAhWMPuRLWmPKBzMXj1MwU9EYLuWKjhSs S3TXVXQoMMHAwVCXDXQNcwUmAFEwn3LLUpCDUvCES0 Z2YvCWHPTJXBVCI8GxgISWP3CQUeGY1sRA1AurE8TZPnHxf4ZK3XTeAyD4JuSAPrUfL5Ec0+DQpzdGFy gMmvJIFMSmDbQQT0QW2DKYEGN4R= ID Date Data Source [id number] 02/12/2020 04:30:00 [place] [address] Patient Name: Piper Licea Exam Date: 02/11/20 : 1970 CC: EKG/ECG in ED Ordering Doctor: Magda Rosales DO Attending Doctor: Magda Rosales DO CC: EKG/ECG in ED APPROVED REPORT ECG MEASUREMENT Heart Rate 110 AXES TN 147 P 31 QRSd 141 QRS -42 QT 351 T -3 QTc 416 INTERPRETATION SINUS TACHYCARDIA RIGHT BUNDLE BRANCH BLOCK. NO PRIOR AVAILABLE FOR COMPARISON. <Conclusion> SINUS TACHYCARDIA RIGHT BUNDLE BRANCH BLOCK. NO PRIOR AVAILABLE FOR COMPARISON. End of diagnostic report for accession: [id number] Interpreted: Magda Rosales DO 02/12/20429 Transcribed: Signed: aMgda Rosales DO 02/12/20430 Interpreted by: Dwayne Rosalesscribed by: Magda Rosales Name Value Range Interpretation Code Description Data [place] rce(s) Supporting Document(s) ID Date Data Source [id number] 02/12/2020 02:20:00 [place] [address] HEALTH INFORMATION MANAGEMENT Consultation : [phone] Signed Patient: Piper Licea Acct:[id number] Unit: [place] [id number] : 1970 Loc: ED Room/Bed: Age/Sex: 49 [...] DAILY 02/12/20 testosterone cypionate 300 mg IM [id number] 02/12/20 Current Visit Medications: Discontinued Medications Generic [...] MPV Gran % (Auto) Lymph % (Auto) [place] % (Auto) Eos % (Auto) Baso % (Auto) Nucleat RBC Rel Count Gran # Lymph # (Auto) [place] # (Auto) Eos # (Auto) Baso # [...] Urine Appearance CLEAR Urine pH 6.0 Specific [place] (Man) 1.008 Urine Protein 30 H Urine [...] 76.7 H Lymph % (Auto) 16.2 L [place] % (Auto) 6.6 Eos % (Auto) 0.0 Baso % (Auto) 0.2 Nucleat RBC Rel Count Not Reportable Gran # 11.18 H Lymph # (Auto) 2.4 [place] # (Auto) 0.96 Eos # (Auto) 0.00 Baso # (Auto) 0.03 Immature Gran # (Auto) 0.1 Absolute Nucleated RBC Not Reportable Immature Gran % 0.3 Sodium Potassium Chloride Carbon Dioxide Anion Gap BUN Creatinine Estimated GFR (MDRD) BUN/Creatinine Ratio Glucose Calcium Total Bilirubin AST ALT Alkaline Phosphatase Total Protein Albumin Globulin Albumin/Globulin Ratio TSH Urine Color Urine Appearance Urine pH Specific [place] (Man) Urine Protein Urine Glucose (UA) Urine [...] with paranoid ideation, [facility] and psycho [...] was more than 50% counseling:: Yes Inpatient 28021 Initial INpt- Low (less than/equal 30 minutes): Yes Signed By:Elton Jennings MD <<Signature on File>> Signed Date/Time: 02/12/20533 Co-Signer: Co-Signed Date/Time: Initializing User: Elton Jennings MD [phone] Name Value Range Interpretation Code Description Data [place] rce(s) Supporting Document(s) ID Date Data Source [id number] 02/12/2020 12:11:00 AM EDT [address] [address] HEALTH INFORMATION MANAGEMENT ED/UC Physician Report : [id number] Signed Patient: Piper Licea Acct:[id number] Unit: [id number] : 1970 Arrival Date: 02/11/20 Age/Sex: 49 [...] DAILY 02/12/20 testosterone cypionate 300 mg IM [id number] 02/12/20 Allergies No Known Allergies Allergy (Unverified [...] able to access the patient's records from [facility]. Patient was admitted there i 2017 for similar symptoms. Patient is from the [facility] and has been admitted multiple times at [facility]. Unfortunately do not have access to those [...] cypionate 200 mg/mL oil 300 mg IM [id number] RF: 0 lisinopril 40 mg tablet 40 mg PO DAILY RF: 0 Referrals: PCP,No [Primary Care Provider] - Date/Time <<Signature on File>> Initializing User: Magda Rosales 02/12/20 0011 Signed by: ConnieMagda 02/12/20 0655 Name Value Range Interpretation Code Description Data [facility] rce(s) Supporting Document(s) ID Date Data Source [id number] 02/12/2020 12:17:00 AM EDT [facility] Name Value Range Interpretation Code Description Data [facility] rce(s) Supporting Document(s) COLOR,UR YELLOW YELLOW [facility] APPEARANCE,UR CLEAR CLEAR [facility] PH,UR 6.0 5.0-8.0 [facility] SPECIFIC GRAVITY,UR 1.008 1.002-1.035 N [facility] PROTEIN,UR 30 MG/DL NEGATIVE A [facility] GLUCOSE, UR NEGATIVE MG/DL NEGATIVE [facility] KETONES,UR 80 MG/DL NEGATIVE [facility] OCCULT BLOOD,UR NEGATIVE NEGATIVE [facility] NITRATE,UR NEGATIVE NEGATIVE [facility] LEUKOCYTE ESTERASE ,UR NEGATIVE NEGATIVE [facility] BILIRUBIN,UR NEGATIVE NEGATIVE [facility] UROBILINOGEN,UR 0.2-1.0 EU MG/DL NEG-0-1.0 [facility] ID Date Data Source [id number] 02/12/2020 12:24:00 AM EDT [facility] Name Value Range Interpretation Code Description Data [facility] rce(s) Supporting Document(s) OPIATE SCREEN NEG NEGATIVE [facility] Minimum Detectable Limit is 300 ng/mL. BARBITURATE SCREEN NEG NEGATIVE [facility] Minimum Detectable Limit is 300 ng/mL. PHENCYCLIDINE SCREEN NEG NEGATIVE [facility] Minimum Detectable Limit is 25 ng/mL. AMPHETAMINE SCREEN NEG NEGATIVE [facility] Minimum Detectable Limit is 1000 mg/mL. BENZODIAZEPINE SCREEN POS NEGATIVE [facility] Mininum Detectable Limit is 300 ng/mL. COCAINE SCREEN NEG NEGATIVE [facility] Minimum Detectable Limit is 300 ng/mL. CANNABINOID SCREEN NEG NEGATIVE [facility] Minimum Detectable limit is 50 ng/dL. HEROIN SCREEN NEG NEGATIVE [facility] Minimum Detectable limit is 10 ng/dL. A ll POSITIVE or BORDER results are unconfirmed. Please contact the laboratory if a reference testing confirmation is needed. ID Date Data Source [id number] 02/12/2020 12:21:00 AM EDT [facility] Has Patient Fasted For The [...] WHITE BLOOD COUNT 14.58 10^3/uL 4.00-10.50 [facility] RED BLOOD COUNT 6.19 10^6/uL 4.30-5.80 H [facility] HEMOGLOBIN 18.7 G/DL 13.0-17.5 H [facility] Critical Results for H&H Ratio. Ch ceasar for possible cryoprecipitates. HEMATOCRIT 52.7 % 41.0-53.0 N [facility] MCV 85.1 FL 80.0-100.0 N [facility] MCH 30.2 PG 27.0-34.0 N [facility] MCHC 35.5 G/DL 32-36 N [facility] RDW 13.1 % 11.5-14.5 N [facility] PLATELET COUNT 290 10^3/uL 130-400 N [facility] MPV 10.0 FL 8.7-13.2 N [facility] GRAN % (AUTO) 76.7 % 42.0-75.0 [facility] LYMPH % (AUTO) 16.2 % 20.0-51.0 L [facility] MONO % (AUTO) 6.6 % 2.0-15.0 N [facility] EOS % (AUTO) 0.0 % 0.0-11.0 N [facility] BASO % (AUTO) 0.2 % 0.0-2.0 N [facility] IG % (AUTO) 0.3 % 1.00-5.00 [facility] IG # (AUTO) 0.1 10^3/uL <0.5 [facility] GRAN # (AUTO) 11.18 10^3/uL 1.50-6.50 [facility] LYMPH # (AUTO) 2.4 k/uL 1.0-5.0 N [facility] MONO # (AUTO) 0.96 k/uL 0.20-1.50 N [facility] EOS # (AUTO) 0.00 10^3/uL 0.00-1.10 N [facility] BASO # (AUTO) 0.03 10^3/uL 0.00-0.20 N [facility] ID Date Data Source [id number] 02/12/2020 12:33:00 AM EDT [facility] Has Patient Fasted For The [...] Supporting Document(s) SODIUM 136 MEQ/L 135-145 N [facility] POTASSIUM 4.4 MEQ/L 3.5-5.3 [facility] CHLORIDE 101 MEQ/L 94-110 [facility] CARBON DIOXIDE 20 MEQ/L 22-33 L [facility] ANION GAP 19 5-16 H [facility] BLOOD UREA NITRO 7 MG/DL 7-25 N [facility] CREATININE 0.8 MG/DL 0.6-1.4 [facility] GFR > 90.0 ML/MIN [facility] Stage G1 - Normal or [...] years only. BUN/CREAT RATIO 8 8-36 N [facility] GLUCOSE 119 MG/DL 70-100 H [facility] CA 10.4 MG/DL 8.7-10.5 N [facility] BILIRUBIN,TOTAL 1.1 MG/DL 0.1-1.3 N [facility] AST 39 U/L 5-40 N [facility] ALT 65 U/L 5-48 H [facility] ALKALINE PHOSPHATASE 72 U/L 40-140 [facility] alth TOTAL PROTEIN 7.2 G/DL 5.9-8.3 N [facility] ALBUMIN 5.4 G/DL 3.0-5.1 H [facility] GLOBULIN 1.8 G/DL 1.5-3.5 N [facility] ALB/GLOB RATIO 3.0 G/DL 1.0-3.0 N [facility] ID Date Data Source [id number] 02/12/2020 12:33:00 AM EDT [facility] Has Patient Fasted For The [...] Supporting Document(s) TSH 2.004 uIU/ML 0.470-4.200 N [facility] Patients should not be tested for 73 ho urs post fluorescein dye angiography. A false depression of result may occur. ID Date Data Source [id number] 02/12/2020 12:33:00 AM T [facility] Has Patient Fasted For The [...] Document(s) SALICYLATE < 3.0 MG/DL 2.8-20.0 N [facility] ID Date Data Source [id number] 02/12/2020 12:33:00 AM T [facility] Has Patient Fasted For The [...] Document(s) ACETAMINOPHEN < 2.0 UG/ML 10-30 L [facility] High levels of N-acetylcysteine (used t o treat Acetaminophen overdose) may cause interference and cause a negative bias in the Acetaminophen result. ID Date Data Source [id number] 02/12/2020 12:33:[address] [facility] Has Patient Fasted For The Past [...] Document(s) BLOOD ALCOHOL < 0.03 % <0.03 [facility] ID Date Data Source [id number] 02/08/2020 12:11:00 [place] [address] PHONE: [phone] FAX: [phone] Name .................. : NATALIYA Spain Acct Number.................. : [id number] ROOM. ................. : TR-06 MR Number ................... : [id number] Stay type ............. : E/R Discharge Date......... ... : Admit Date ......... : 0 02/07/20 Admit Phys .................... : COONEYNORM Date of ....... : 1970 Family Phys ................... : YONATHAN COR Phone .................. : [phone] Age ................................ : 49 Film# .................. .:[id number] Sex ................................. : M Unsigned transcriptions are preliminary reports and do not represent a medical or legal document CT ABD & PELVIS W/ IV ONLY [id number] COMPLETE:02/07/20 18:42 [id number] Reason(s): Pending CMP: Abd pain s/p surgery; [...] versus postoperative change. Page 1 of 2 [facility] [address] [place] [address] PHONE: [phone] FAX: [phone] Name .................. : NATALIYA Spain Acct Number.................. : [id number] ROOM. ................. : TR-06 Number ................... : [id number] Stay type ............. : E/R Discharge Date......... ... : Admit Date ......... : 02/07/20 Admit Phys .................... : COONEYNORM Date of ....... : 1970 Family Phys ................... : YONATHAN COR Phone .................. : [phone] Age ................................ : 49 Film# .................. .:[id number] Sex ................................. : M Unsigned transcriptions are preliminary reports and do not represent a medical or legal document CT ABD & PELVIS W/ IV ONLY [id number] COMPLETE:02/07/20 18:42 21039 Reason(s): Pending CMP: Abd pain s/p surgery; [...] By Bethel Garcia M.D. , 02/08/20 12:11, [facility] Transcribe Initials: CRISTIANO , Transcribe Date: 02/07/20 22:16, Dictation Date: Copy for: MYRANDA CABRERA via fax Copy for: EMERGENCY DEPT via modem Copy for: 710 MED REC DISCHARGED Page 2 of 2 Name Value Range Interpretation Code Description Data Geneva rce(s) Supporting Document(s) ID Date Data Source [id number] 02/07/2020 06:08:00 PM EDT [facility] 1 OrderSheet [facility] Emergency Department [address] [place] [address] Phone #: ext- [phone] 02/07/2020 18:07 Patient: PIPER LICEA Sex: M : 1970 Age: 49yWEIGHT:114.3 kg (M) HEIGHT:70 inches (M) BMI:36.2ALLERGIES: No Known Drug AllergyCHIEF COMPLAINT: abdominal painDIAGNOSIS: Abdominal painLAB ORDERSOrder Description Priority Entered Acknowledged InitialedCBC w Diff STAT 18:42 02/07/2020 18:52 Israel Langley R.N. P.A.-C;CMP STAT 18:42 02/07/2020 18:52 Israel Langley R.N.A.-C;Lipase STAT 18:42 02/07/2020 18:52 Israel Langley R.N. P.A.-C;Urinalysis (Clean STAT 18:42 02/07/2020 19:42 ShivamCatch) Israel Yap R.N. P.A.- C;Lactic Acid STAT 18:42 02/07/2020 18:52 sIrael Langley R.N. P.A.-C;Blood Culture STAT 18:42 02/07/2020 18:52 Shivam,reina0m X2 (Sched Israel Yap R.N.18:42 02/07/2020) P.A.-C;Blood Culture STAT 18:42 02/07/2020 18:52 Shivamq10m X2 (Sched Israel DominguezNWandy18:52 02/07/2020) P.A.-C;Troponin-T STAT 18:42 02/07/2020 18:52 Israel Langley R.N. P.A.- C;PT/INR STAT 18:45 02/07/2020 18:52 Israel Langley R.N. P.A.-C;DIAGNOSTIC STUDY ORDERSOrder Description Priority Entered Acknowledged InitialedCT Abd PEL W/ IV STAT 18:42 02/07/2020 20:55 Shivam, 2 OrderS et [facility] Emergency Department [address] [place] [address] Phone #: ext- [phone] 02/07/2020 18:07 Patient: PIPER LICEA Sex: M : 1970 Age: 49yContrast Only Israel Yap R.N.(Oxygen?(No)) P.A.-C;(IV?(Yes)) Reason for Study: Pending CMP: Abd pain s/p surgery; ? infectionMEDICATION/IV/DRIP/FLUID ORDERSOrder Description Priority Entered Acknowledged InitialedIV NS : Bolus 500 18:42 02/07/2020 19:11 Shivam,mL, then 75 mL/hr Israel Yap R.N. P.A.-C;Zofran IVP 4 mg 18:42 [...] P.A.-C;EKG 18:42 02/07/2020 18:52 Israel Langley R.N. P.A.-C;Reading Recovery Teacher 18:42 02/07/2020 18:52 Shivam(continuous) Israel Yap R.N. P.A.-C;Blood Pressure 18:42 02/07/2020 18:52 Shivam,Monitor Israel Yap R.N., P.A.-C;Pulse oximeter 18:42 02/07/2020 18:52 Shivam(Continuous) Israel Yap R.N., P.A.-C; 3 OrderSheet [facility] Emergency Department [address] [place] [address] Phone #: ext- [phone] 02/07/2020 18:07 Patient: PIPER LICEA Sex: M : 1970 Age: 49y[Electronically signed by Ector Maravilla RN (00:04 02/08/2020)][Electronically signed by Israel Puri P.A.-C (10:27 02/08/2020)][Electronically locked by Ector Maravilla RN (00:04 02/08/2020)] Name Value Range Interpretation Code Description Data Geneva rce(s) Supporting Document(s) ID Date Data Source [id number] 02/07/2020 06:08:00 PM EDT [facility] 1 Medication Reconciliation Report [facility] Emergency Department [address] [place] [address] Phone #: ext- [phone] 02/07/2020 18:07 Patient: [...] rce(s) Supporting Document(s) ID Date Data Source [id number] 02/07/2020 06:08:00 PM EDT [facility] 1 Medication Administration Record [facility] Emergency Department [address] [place] [address] Phone #: ext- [phone] 02/07/2020 18:07 Patient: PIPER LICEA Sex: M : 1970 Age: 49yWeight: 114.3 kgHeight/Length: 70 inBMI: 36.2ALLERGIES: No Known Drug Allergy Date/Time Medication Administered Medication OrderedStart IV NS IV NS : Bolus 500 mL, then 7519:11 02/07/2020 Dose: IV Fluids mL/Fracisco Mary R.N. Rate: 1000 mL/hr over 30 minute(s)---- [...] wristStart ROCEPHIN (1GM/50ML) [IVPB] Rocephin (1gm/50mL) IVPB 733529:06 02/07/2020 (CEFTRIAXONE SODIUM) mg with Dextrose 50 ml spike bagSFracisco torres R.N. Dose: 1 gm IVPB (D5W)---- Rate: 100 mL/hr over 30 minute(s)Stop Dispensed: 50 mL bag22:36 02/07/2020 Site: #1 left Dina Maravilla RN Name Value Range Interpretation Code Description Data Geneva rce(s) Supporting Document(s) ID Date Data Source [id number] 02/07/2020 06:08:00 PM EDT [facility] 1 General Instructions [facility] Emergency Department [address] [place] [address] Phone #: ext- [phone] 02/07/2020 18:07 Patient: [...] or other clear liquids. 2 General Instructions [facility] Emergency Department [address] [place] [address] Phone #: kpc- [phone] 02/07/2020 18:07 [id number] Sex: M : 1970 Age: 49y Watch [...] chest, arm, back, neck or jaw pain [id number] [employer]. [address] [place] [address]. All rights reserved. This information is not intended as asubstitute for professional medical care. Always follow your healthcare professional's instructions. You have been given the following additional information: Unknown Causes of Abdominal Pain (Male)(Electronically signed by Israel Puri P.A.-C 02/08/2020 10:27) Name Value Range Interpretation Code Description Data Geneva rce(s) Supporting Document(s) ID Date Data Source [id number] 02/07/2020 06:08:00 PM EDT [facility] 1 Clinical Report - Nurses [facility] Emergency Department [address] [place] [address] Phone #: ext- [phone] 02/07/2020 18:07 Patient: PIPER LICEA Sex: M : 1970 Age: 49yTRIAGEArrived by EMS. Historian: patient.Acuity: LEVEL 3.Chief Complaint: ABDOMINAL PAIN and NAUSEA and (dizzziness).Alert. No acute distress.This started last night. ( patient had a abd hernia repair yesterday by here at [facility]. States painis 04/09, with severe nausea. denies vomiting.). No diarrhea, constipation or fever. Last oral intake bypatient was lunch today.Treatment DEPUTY BUILDING GUARD:Took Tylenol.EMS Treatment DEPUTY BUILDING GUARD:See EMS report.SEPSIS SCREEN: Sepsis Screen negative. No suspected or confirmed signs of infection present. --18: Maribel Perez R.N.18:08 02/07/20. BP: 150/97. MAP: [...] Perez R.N. 2 Clinical Report - Nurses [facility] Emergency Department [address] [place] [address] Phone #: ext- [phone] 02/07/2020 18:07 Patient: [...] acute distress. 3 Clinical Report - Nurses [facility] Emergency Department [address] [place] [address] Phone #: ext- [phone] 02/07/2020 18:07 Patient: [...] of allergic reaction and precautions. Verbalizes understanding. --19:02/07/20 Fracisco Langley R.N. 19:02/07/2020 Zofran (Ondansetron HCl) IVP 4 mg given over 2 minute(s) via site #1. Allergies verified and confirmed 5 rights. IV patency established. IV site checked: no pain, redness, or swelling. IV flushed thoroughly pre- and post-medication administration. IVP given by RN. Information reviewed with patient including reason for taking this medication, signs of allergic reaction and precautions. Verbalizes understanding. --19:02/07/20 Fracisco Langley R.N. 19:02/07/2020 Dilaudid (HYDROmorphone HCl) IVP 1 mg given over 2 minute(s) via site #1. Allergies verified and confirmed 5 rights. IV patency established. IV site checked: no pain, redness, or swelling. IV flushed thoroughly pre- and post- medication administration. IVP given by RN. Information reviewed with patient including reason for taking this medication, signs of allergic reaction, precautions and sedative warning. Verbalizes understanding. --19:02/07/20 Fracisco Langley R.N. Reassessment acuity: LEVEL 3. [...] in lowest position. Brakes of bed on. --20:02/07/20 Fracisco Langley R.N. 20:03 02/07/20. BP: 149/94. MAP: 112. HR: 95. RR: 16. O2 saturation: 95%. Temp: 98.9 F. Pain level now: 10. --20:06 02/07/20 Fracisco Langley R.N. The patient reports no complaints, he is calm and resting quietly and he has had no adverse reaction. Overall patient status is improved. ( at surgical site, skin reddened around umbilicus, about 4 to 5 inch diameter, w/hematoma 1.5 x 2.5 just above umbilicus). 4 Clinical Report - Nurses [facility] Emergency De partment [address] [place] [address] Phone #: ext- [phone] 02/07/2020 18:07 Patient: PIPER LICEA Sex: M [...] saturation: 97%. Temp: 98.9 F. Pain levelnow: 5/10. --20:38 02/07/20 Fracisco Langley R.N.EKG time: (20:32 [...] color within normal limits. Patient transported to [place] by wheelchair.Two patient identifiers checked. Call light placed in reach. Side rails up x 2. Bed placed in l owestposition. Brakes of bed on. --20:56 02/07/20 Fracisco Langley R.N.21:34 02/07/20. BP: 152/98. MAP: 116. HR: 76. RR: 16. O2 saturation: 96%. Temp: 98.8 F. Pain levelnow: 10. --21:36 02/07/20 Fracisco Langley R.N.Two patient identifiers [...] urine. Urine: 5 Clinical Report - Nurses [facility] Emergency Department [address] [place] [address] Phone #: ext- [phone] 02/07/2020 18:07 Patient: [...] rce(s) Supporting Document(s) ID Date Data Source [id number] 02/07/2020 06:08:00 PM EDT [facility] 1 Clinical Report - Physicians/Mid Levels [facility] Emergency Department [address] [place] [address] Phone #: ext- [phone] 02/07/2020 18:07 Patient: [...] ablation. 2 Clinical Report - Physicians/Mid Levels [facility] Emergency Department [address] [place] [address] Phone #: ext- [phone] 02/07/2020 18:07 Patient: PIPER LICEA [facility]#: [id number] Sex: M : 1970 Age: 49y Medications: [...] 99%. Temp: 99 F. Pain level now: 10. Appearance: Alert. Oriented X3. No acute distress. [...] area of necrotizing infection versus postoperative change. cecyJose chirinos Bethel - 02/07/2020 9:22:47 PM 3 Clinical Report - Physicians/Mid Levels [facility] Emergency Department [address] [place] [address] Phone #: ext- [phone] 02/07/2020 18:07 Patient: PIPER LICEA Sex: M : 1970 Age: 49y1. No free air or abscess.2.Small flecks of air in an area measuring approximately 1.6 cm just superior to the umbilicus likely.Laboratory Tests:PT/INR: (MARISABEL: 02/07/2020 19:01) ( [facility]35[facility] Final results Test Result Flag Units (Reference) PROTIME 13.3 SECONDS (11.0 - 15.5) INR 1.00 (0.93 - 1.23) \\BLDo\\INR INTERPRETATION\\BLDx\\ Therapeutic range for C griceldamadin andrelated oral anticoagulants. -International Normalized Ratio (INR): 2.0 - 3.0 for VenousThrombosis, Pulmonary Embolus, Tissue heart valves, Acute CT, Atrial Fibrillation, Valvular heartdisease and recurrent Systemic Embolism. -International Normalized Ratio (INR): 2.5 - 3.5for Mechanical Prosthetic valve.CBC w Diff: (MARISABEL: 02/07/2020 19:01) ( [facility] 02[facility]07[facility] 19:57) Final results Test Result Flag [...] % 4 Clinical Report - Physicians/Mid Levels [facility] Emergency Department [address] [place] [address] Phone #: ext- [phone] 02/07/2020 18:07 -------- [...] Male GFR Interprentation 20-49 yrs >60 mL/min Waipij67-29 yrs >56 mL/min Normal 60-69 yrs >49 mL/min Normal 70-79yrs>42 mL/min Normal 80 and above >35 mL/min Normal Female GFRInterpretation 20-39 yrs >60 mL/min Normal 40-49 yrs >58 mL/minNormal 50-59 yrs >51 mL/min Normal 60-69 yrs >45 mL/min Gytikg07-90 yrs >39 mL/min Normal 80 and above >32 mL/min NormalLipase: (MARISABEL: 02/07/2020 19:01) ( [facility] 02/07[facility] 20:03) Final results [...] Negat 5 Clinical Report - Physicians/Mid Levels [facility] Emergency Department [address] [place] [address] Phone #: ext- [phone] 02/07/2020 18:07 Patient: PIPER LICEA Sex: M : 1970 Age: 49y UROBILINOGEN NOR (less than 1.0 MICROSCOPIC Not Indicate Lactic Acid: (MARISABEL: 02/07/2020 19:01) ( [facility] 02/07[facility] 19:19) Final results Test Result Flag Units (Reference) LACTIC ACID 1.5 MMOL/L (0.2 - 2.2) Troponin-T: (MARISABEL: 02/07/2020 19:01) ( MsgRcvd 02/07/2020 19:35) Final results Test Result Flag Units (Reference) TROPONIN T <0.01 NG/ML (0.00 - 0.10) TROPONIN T0.1 ng/ml Recommended as the clinical threshold value Bere Mcintyre..PROGRESS AND PROCEDURES Course of Care: VSS, NAD, AOx3, interacting well and appropriately, no use of accessory muscle, able to speak full sentences, stable, non-toxic looking. Enter room and pt lying peacefully in bed in NAD. Patient stable. Denies any new issues, concerns, or complaints. PE rossy NV itnact b/l UE and LE. Noted TTP of abd and ntoed surgical scar. NToed encompassing erythema, approx 8-10cm in diameter; ? irratation vs infection. WIll obtain and imaging for cody Martinez resutjuan diego. Reviewed results. Contacted surgon prototype assembler electronics (Dr. Meeks); informed of pt, informed that Dr. Richardson had done the surgery yesterday. Sts that not prototype assembler electronics and that Dr. Richardson is covering. Understood [...] and pain meds. Infomred I will review CULINARY ARTS TEACHER and agrees. Sts that he will see [...] AM. 6 Clinical Report - Physicians/Mid Levels [facility] Emergency Department [address] [place] [address] Phone #: ext- [phone] 02/07/2020 18:07 Patient: PIPER LICEA Sex: M : 1970 Age: 49yOrdered abx.22:18 02/07/20. Disucssed with attending and she indicates to admit pt for observation and for continued IVabx. ? early infectoion vs post op changes and so soon after surgery (yesterday) It does appears to beworsening; lives by himself. Contacted hospitalist to discuss.Reviewed CULINARY ARTS TEACHER.This report was requested by: Israel Puri Reference #: [id number]' PrescriptionsPatient Name: Piper LiceaBirth Date: 1970Address: [address] [place], [place] [address]Qxn: MaleRx Written Rx Dispensed Drug Quantity Days Supply Prescriber Name Payment Method Jwjwkecwr82/02/2020 08/10/2019 alprazolam 0.5 mg tablet 30 30 [employer] TherapiesMaryanne baugh [facility], [facility] #07/13/2019 alprazolam 0.5 mg tablet 30 30 Maryanne Ashby [employer], [employer] #07/03/2019 testosterone cyp 200 mg/ml 4ml 30 Kelli Mcmanus [facility] #06/13/2019 alprazolam 0.5 mg tablet 60 30 AshMaryanne baugh [employer], [employer] #05/16/2019 alprazolam 0.5 mg tablet 60 30 [facility]ie [facility]Select [facility] [place] [facility], [facility] #05/02/2019 testosterone cyp 200 mg/ml 4ml 30 Yonathan, Kelli A [facility], [employer] #11104/20/2019 alprazolam 0.5 mg tablet 60 30 Ashcroft, Maryanne M [employer], [employer] #11003/21/2019 testosterone cyp 200 mg/ml 4ml 30 [facility], Kelli A [employer], [facility] #11003/21/2019 alprazolam 0.5 mg tablet 60 30 Ashcroft, Maryanne [employer], [employer] #10902/23/2019 alprazolam 0.5 mg tablet 60 30 Ashcroft, Maryanne [employer], [employer] #10902/16/2019 testosterone cyp 200 mg/ml 4ml 30 [facility], [email or web address] [facility] #1Patient Name: Piper LiceaBirth Date: 1970Address: [address] [address]Wun: MaleRx Written Rx Dispensed Drug Quantity Days Supply Prescriber Name Payment Method Eitrxrvhh65/25/2020 01/24/2020 alprazolam 0.5 mg tablet 30 30 [facility], [facility]#01/01/2020 alprazolam 0.5 mg tablet 30 30 [facility], [facility]#1 7 Clinical Report - Physicians/Mid Levels [facility] Emergency Department [address] [place] [address] Phone #: ext- [phone] 02/07/2020 18:07 Patient: PIPER LICEA Sex: M : 1970 Age: 49y 11/29/2019 11/30/2019 alprazolam 0.5 mg tablet 30 30 Jacquelin Erickson MD [facility], [facility] #1 11/29/2019 11/30/2019 testosterone cyp 200 mg/ml 4ml 30 Jacquelin Erickson MD [facility], [facility] #1 10/31/2019 11/02/2019 alprazolam 0.5 mg tablet 30 30 [place], [facility] #[facility] 10/19/2019 10/24/2019 testosterone cyp 200 mg/ml 4ml 30 Yonathan, [facility], [facility] #1 09/04/2019 09/11/2019 alprazolam 0.5 mg tablet 30 30 Ashcroft, Maryanne M [facility], [facility] #1 08/21/2019 08/23/2019 testosterone cyp 200 mg/ml 4ml 30 Yonathan, [facility], [facility] #1 22:31 02/07/20. Contact hosptilist and [...] rce(s) Supporting Document(s) ID Date Data Source [id number] 02/08/2020 07:10:00 AM EDT [facility] Name Value Range Interpretation Code Description Data Geneva rce(s) Supporting Document(s) BASIC METABOLIC PANEL [facility] BASIC METABOLIC PANEL Sodium [Moles/volume] in Serum or Plasma 140 mEq/L 134 - 153 [facility] Potassium [Moles/volume] in Serum or Plasma 4.6 mEq/L 3.6 - 5.0 [facility] Chloride [Moles/volume] in Serum or Plasma 105 mEq/L 98 - 107 [facility] Carbon dioxide, total [Moles/volume] in Serum or Plasma 28 MEQ/L 22 - 30 [facility] Glucose [Mass/volume] in Serum or Plasma 79 MG/DL 65 - 110 [facility] BUN 8 MG/DL 7 - 21 [facility] al Creatinine [Mass/volume] in Serum or Plasma 0.8 MG/DL 0.7 - 1.5 [facility] BUN/CREAT 10 8 - 27 [facility] Calcium [Mass/volume] in Serum or Plasma 8.8 MG/DL 8.4 - 10.2 [facility] Anion gap 3 in Serum or Plasma 7.0 mmol/L 8.0 - 16.0 L [facility] AGE 49 yrs [facility] al AFR AMER GFR >60 mL/min [facility] Ho spital NON-AA GFR >60 mL/min [facility] ital Male GFR Inter prentation 20-49 yrs [...] >32 mL/min Normal ID Date Data Source [id number] 02/08/2020 06:48:00 AM EDT [facility] Name Value Range Interpretation Code Description Data Geneva rce(s) Supporting Document(s) CBC W/AUTOMATED DIFF [facility] COMPLETE BLOOD COUNT Leukocytes [#/volume] in Blood by Automated count 10.3 10^3/uL 4.2 - 11.0 [facility] Erythrocytes [#/volume] in Blood by Automated count 5.17 10^6/uL 4. 50 - 6.30 [facility] Hemoglobin [Mass/volume] in Blood 15.7 g/dL 14.0 - 16.0 [facility] Hematocrit [Volume Fraction] of Blood by Automated count 45.9 % 4 1.0 - 51.0 [facility] Erythrocyte mean corpuscular volume [Entitic volume] by Auto mated count 88.8 fL 80.0 - 94.0 [facility] Erythrocyte mean corpuscular hemoglobin [Entitic mass] by Automated count 30.4 pg 27.0 - 34.0 [facility] Erythrocyte mean corpuscular hemoglobin concentration [Mass/volume] by Automated count 34.2 g/dL 31.0 - 36.0 [facility] Erythrocyte distribution width [Ratio] by Automated count 13.2 % 11.5 - 14.8 [facility] Platelets [#/volume] in Blood by Automated count 259 10^3/uL 150 - 45 0 [facility] Platelet mean volume [Entitic volume] in Blood by Automated count 9.7 fL 7.4 - 10.4 [facility] Neutrophils/100 leukocytes in Blood by Automated count 48.8 % 37. 0 - 80.0 [facility] Lymphocytes/100 leukocytes in Blood by Manual count 40.7 % 25.0 - 40.0 H [facility] Monocytes/100 leukocytes in Blood by Automated count 9.6 % 3.0 - 8.0 H [facility] Eosinophils/100 leukocytes in Blood by Automated count 0.4 % 0.0 - 7.0 [facility] Basophils/100 leukocytes in Blood by Automated count 0.3 % 0.0 - 2.0 [facility] %IG 0.2 % 0.0 - 0.0 [facility] %NRBC 0.0 % 0.0 - 0.0 [facility] al Neutrophils [#/volume] in Blood by Automated count 5.05 10^3/uL 2.00 - 6.90 [facility] Lymphocytes [#/volume] in Blood by Automated count 4.21 10^3/uL 0.60 - 3.40 H [facility] Monocytes [#/volume] in Blood by Automated count 0.99 10^3/uL 0.00 - 0.90 H [facility] Eosinophils [#/volume] in Blood by Automated count 0.04 10^3/uL 0.00 - 0.70 [facility] Basophils [#/volume] in Blood by Automated count 0.03 10^3/uL 0.00 - 0.20 [facility] #IG 0.02 10^3/uL 0.00 - 0.10 [facility]ital #NRBC 0.00 10^3/uL 0.00 - 0.00 [facility] MANUAL DIFF NOT INDICATED [facility] RBC MORPH NOT INDICATED [facility] Ho spital ID Date Data Source [id number] 02/07/2020 08:02:00 PM EDT [facility] Name Value Range Interpretation Code Description Data [place] rce(s) Supporting Document(s) URINALYSIS [facility] Hospi meena URINALYSIS SOURCE Clean Catch [facility] ital COLOR yellow NORMAL: Yellow [facility] CLARITY clear NORMAL: Clear [facility] Ho spital Specific gravity of Urine by Test strip 1.005 1.001 - 1.030 [facility] pH 7 5 - 9 [facility] Glucose [Mass/volume] in Urine by Test strip NORM NORMAL: Negat [facility] Bilirubin.total [Presence] in Urine by Test strip NEG NORMAL: Negative [facility] Ketones [Presence] in Urine by Test strip 5 NORMAL: Negative [facility] Protein [Mass/volume] in Urine by Test strip NEG NORMAL: Negat [facility] Nitrite [Presence] in Urine by Test strip NEG NORMAL: Negative [facility] BLOOD NEG NORMAL: Negative [facility] Leukocyte esterase [Presence] in Urine by Test strip NEG PHILLIP L: Negative [facility] Urobilinogen [Mass/volume] in Urine by Test strip NOR less ani n 1.0 mg/dL [facility] MICROSCOPIC Not Indicate [facility] ospital ID Date Data Source [id number] 02/14/2020 06:37:00 AM EDT [facility] [id number] STAIN = GRAM POSITIVE SHAISTA CI IN [id number]/11/20 1137 CALLED TO BYRON RAMAN, RESULTS READ BACK02/14/20 0636 CALLED TO NANETTE Sanchez BY LAMINE, RESULTS READBACKMICROCOCCUS & RELATED SPECIES Name Value Range Interpretation Code Description Data [facility] rce(s) Supporting Document(s) Bacteria identified in Blood by Culture [facility] NO GROWTH AFTER 5 DAYS ID Date Data Source [id number] 02/09/2020 11:39:00 AM EDT [facility] 02/09/20 1137 CALLED TO BYRON Husain BY KARL Magaña, RESULTS READ BACKThe FilmArray BCID Panel is a qualitative multiplexednucleic acid-based [...] rce(s) Supporting Document(s) ID Date Data Source [id number] 02/14/2020 11:42:00 AM EDT [facility] Name Value Range Interpretation Code Description Data [facility] rce(s) Supporting Document(s) CULTURE BLOOD [facility] Ho spital _CULTURE BLOOD_{ PRELIM GROWTH OF GRAM POSITIVE COCCI IN CLUSTERS TEST PERFORMED AT [facility] [address] [place] [address] [facility]# [id number] SEE SCANNED REPORTCALLED Minesh [place] ON AIU 02/09/20 1145 CM ID Date Data Source [id number] 02/07/2020 08:03:00 PM EDT [facility] Name Value Range Interpretation Code Description Data [place] rce(s) Supporting Document(s) Lipase [Enzymatic activity/volume] in Serum or Plasma 22 U/L 13 - 60 [facility] ID Date Data Source [id number] 02/07/2020 08:03:00 PM EDT [facility] Name Value Range Interpretation Code Description Data [place] rce(s) Supporting Document(s) COMPREHENSIVE METABOLIC PANEL [facility] COMPREHENSIVE METABOLIC PANEL Sodium [Moles/volume] in Serum or Plasma 133 mEq/L 134 - 153 L [facility] Potassium [Moles/volume] in Serum or Plasma 3.7 mEq/L 3.6 - 5.0 [facility] Chloride [Moles/volume] in Serum or Plasma 96 mEq/L 98 - 107 L [facility] Carbon dioxide, total [Moles/volume] in Serum or Plasma 23 MEQ/L 22 - 30 [facility] Glucose [Mass/volume] in Serum or Plasma 99 MG/DL 65 - 110 [facility] BUN 8 MG/DL 7 - 21 [facility] Creatinine [Mass/volume] in Serum or Plasma 0.7 MG/DL 0.7 - 1.5 [facility] BUN/CREAT 11 8 - 27 [facility] al Protein [Mass/volume] in Serum or Plasma 6.0 G/DL 6.3 - 8.2 L [facility] Albumin [Mass/volume] in Serum or Plasma 4.5 G/DL 3.9 - 5.0 [facility] Globulin [Mass/volume] in Serum by calculation 1.5 GM/DL 2.4 - 3.2 L [facility] A/G RATIO 3.0 0.8 - 2.0 H [facility] Calcium [Mass/volume] in Serum or Plasma 9.4 MG/DL 8.4 - 10.2 [facility] Bilirubin.total [Mass/volume] in Serum or Plasma <0.7 MG/DL 0.2 - 1.3 [facility] Alkaline phosphatase [Enzymatic activity/volume] in Serum or Plasma 56 U/L 38 - 126 [facility] Aspartate aminotransferase [Enzymatic activity/volume] in Serum or Plasma 26 U/L 5 - 40 [facility] Alanine aminotransferase [Enzymatic activity/volume] in Seru m or Plasma 25 U/L 7 - 56 [facility] Anion gap 3 in Serum or Plasma 14.0 mmol/L 8.0 - 16.0 [facility] AGE 49 yrs [facility] al NON-AA GFR >60 mL/min [facility] ital AFR AMER GFR >60 mL/min [facility] Ho spital Male GFR In terprentation [...] >32 mL/min Normal ID Date Data Source [id number] 02/07/2020 07:56:00 PM EDT [facility] Name Value Range Interpretation Code Description Data [place] rce(s) Supporting Document(s) CBC W/AUTOMATED DIFF [facility] COMPLETE BLOOD COUNT Leukocytes [#/volume] in Blood by Automated count 12.4 10^3/uL 4.2 - 11.0 H [facility] Erythrocytes [#/volume] in Blood by Automated count 5.27 10^6/uL 4. 50 - 6.30 [facility] Hemoglobin [Mass/volume] in Blood 16.1 g/dL 14.0 - 16.0 H [facility] Hematocrit [Volume Fraction] of Blood by Automated count 45.9 % 4 1.0 - 51.0 [facility] Erythrocyte mean corpuscular volume [Entitic volume] by Auto mated count 87.1 fL 80.0 - 94.0 [facility] Erythrocyte mean corpuscular hemoglobin [Entitic mass] by Automated count 30.6 pg 27.0 - 34.0 [facility] Erythrocyte mean corpuscular hemoglobin concentration [Mass/volume] by Automated count 35.1 g/dL 31.0 - 36.0 [facility] Erythrocyte distribution width [Ratio] by Automated count 13.0 % 11.5 - 14.8 [facility] Platelets [#/volume] in Blood by Automated count 245 10^3/uL 150 - 45 0 [facility] Platelet mean volume [Entitic volume] in Blood by Automated count 10.2 fL 7.4 - 10.4 [facility] Neutrophils/100 leukocytes in Blood by Automated count 61.3 % 37. 0 - 80.0 [facility] Lymphocytes/100 leukocytes in Blood by Manual count 28.6 % 25.0 - 40.0 [facility] Monocytes/100 leukocytes in Blood by Automated count 9.5 % 3.0 - 8.0 H [facility] Eosinophils/100 leukocytes in Blood by Automated count 0.2 % 0.0 - 7.0 [facility] 0.2 %IG 0.2 % 0.0 - 0.0 H [facility] al %NRBC 0.0 % 0.0 - 0.0 [facility] al Neutrophils [#/volume] in Blood by Automated count 7.58 10^3/uL 2.00 - 6.90 H [facility] Lymphocytes [#/volume] in Blood by Automated count 3.53 10^3/uL 0.60 - 3.40 H [facility] Monocytes [#/volume] in Blood by Automated count 1.18 10^3/uL 0.00 - 0.90 H [facility] Eosinophils [#/volume] in Blood by Automated count 0.02 10^3/uL 0.00 - 0.70 [facility] Basophils [#/volume] in Blood by Automated count 0.02 10^3/uL 0.00 - 0.20 [facility] #IG 0.03 10^3/uL 0.00 - 0.10 [facility] ospital #NRBC 0.00 10^3/uL 0.00 - 0.00 [facility] ospital MANUAL DIFF SEE BELOW [facility] ital Segmented neutrophils/100 leukocytes in Blood by Manual count 63 % 37 - 80 [facility] BAND 0 % 0 - 5 [facility] %LYMPH 27 % 25 - 40 [facility] al %MONO 10 % 3 - 8 H [facility] al %EOS 0 % 0 - 7 [facility] al 0 Metamyelocytes/100 leukocytes in Blood by Manual count 0 % [facility] Myelocytes/100 leukocytes in Blood by Manual count 0 % [facility] Promyelocytes/100 leukocytes in Blood by Manual count 0 % [facility] Blasts/100 leukocytes in Blood by Manual count 0 % [facility] SAMANTHA LYM 0 % [facility] al Nucleated erythrocytes/100 erythrocytes in Blood by Manual count 0 % [facility] RBC MORPH NOT INDICATED [facility] Ho spital ID Date Data Source [id number] 02/07/2020 07:35:00 PM EDT [facility] Name Value Range Interpretation Code Description Data [place] rce(s) Supporting Document(s) TROPONIN T <0.01 NG/ML 0.00 - 0.10 [facility] ospital TROPONIN T0.1 ng/ml Recommended as the c linical threshold value forTroponin T. ID Date Data Source [id number] 02/07/2020 07:35:00 PM EDT [facility] Name Value Range Interpretation Code Description Data [place] rce(s) Supporting Document(s) Prothrombin time (PT) 13.3 SECONDS 11.0 - 15.5 [facility] INR in Platelet poor plasma by Coagulation assay 1.00 0.93 - 1. 23 [facility] \\BLDo\\INR INTERPRETATION\\BLDx\\ Therapeutic range for Coumadin and related oral anticoagulants. - International Normalized Ratio (INR): 2.0 - 3.0 for Venous Thrombosis, Pulmonary Embolus, Tissue heart valves, Acute CT, Atrial Fibrillation, Valvular heart disease and recurrent Systemic Embolism. -International Normalized Ratio (INR): 2.5 - 3.5 for Mechanical Prosthetic valve. ID Date Data Source [id number] 02/07/2020 07:19:00 PM EDT [facility] Name Value Range Interpretation Code Description Data [place] rce(s) Supporting Document(s) Lactate [Moles/volume] in Serum or Plasma 1.5 MMOL/L 0.2 - 2.2 [facility] ID Date Data Source [id number] 02/14/2020 11:41:00 AM EDT [facility] Name Value Range Interpretation Code Description Data [place] rce(s) Supporting Document(s) CULTURE BLOOD [facility] _CULTURE BLOOD_ [place] [address] CLIA# [id number] SEE SCANNED REPORT{ PRELIM ID Date Data Source [id number] 02/06/2020 03:23:00 PM EDT [facility] Name Value Range Interpretation Code Description Data [place] rce(s) Supporting Document(s) SARS coronavirus 2 RNA [facility] This lab was ordered by [facility] stephanie and reported by [facility]. ID Date Data Source [id number] 02/08/2020 11:21:00 AM EDT [facility] Name Value Range Interpretation Code Description Data [place] rce(s) Supporting Document(s) SARS-CoV-2, RICARDO Not Detected Not Detected [facility] This nucleic acid amplification test was developed and its performancecharacteristics determined by [facility]. Nucleic acidamplification tests include PCR and TMA. [...] in this assay. ID Date Data Source [id number] 02/06/2020 04:03:00 PM EDT [facility] Name Value Range Interpretation Code Description Data [place] rce(s) Supporting Document(s) Sodium [Moles/volume] in Serum or Plasma 135 mEq/L 134 - 153 [facility] Potassium [Moles/volume] in Serum or Plasma 4.2 mEq/L 3.6 - 5.0 [facility] Chloride [Moles/volume] in Serum or Plasma 98 mEq/L 98 - 107 [facility] Carbon dioxide, total [Moles/volume] in Serum or Plasma 27 MEQ/L 22 - 30 [facility] ID Date Data Source [id number] 02/06/2020 03:33:00 PM EDT [facility] Name Value Range Interpretation Code Description Data [place] rce(s) Supporting Document(s) CBC NO DIFF [facility] ital COMPLETE BLOOD COUNT Leukocytes [#/volume] in Blood by Automated count 8.8 10^3/uL 4.2 - 1 1.0 [facility] Erythrocytes [#/volume] in Blood by Automated count 5.38 10^6/uL 4. 50 - 6.30 [facility] Hemoglobin [Mass/volume] in Blood 16.5 g/dL 14.0 - 16.0 H [facility] Hematocrit [Volume Fraction] of Blood by Automated count 47.8 % 4 1.0 - 51.0 [facility] Erythrocyte mean corpuscular volume [Entitic volume] by Auto mated count 88.8 fL 80.0 - 94.0 [facility] Erythrocyte mean corpuscular hemoglobin [Entitic mass] by Automated count 30.7 pg 27.0 - 34.0 [facility] Erythrocyte mean corpuscular hemoglobin concentration [Mass/volume] by Automated count 34.5 g/dL 31.0 - 36.0 [facility] Erythrocyte distribution width [Ratio] by Automated count 13.2 % 11.5 - 14.8 [facility] Platelets [#/volume] in Blood by Automated count 240 10^3/uL 150 - 45 0 [facility] Platelet mean volume [Entitic volume] in Blood by Automated count 9.6 fL 7.4 - 10.4 [facility] ID Date Data Source [id number] 02/05/2020 11:46:00 PM EDT [facility] [address] [place], [place] [id number] [phone] NAME SEX PT STATUS ACCOUNT NUMBER PIPER [facility] [id number] ORDERING PHYSICIAN LOCATION MEDICAL RECORD NO. Skip Rutherford MD ER [id number] ATTENDING PHYSICIAN DATE OF DATE OF EXAM/TIME [...] rce(s) Supporting Document(s) ID Date Data Source [id number] 02/05/2020 09:45:00 PM EDT [facility] Special Instructions: Lab may order repe at test if initial test elevatedPhysician If elevated, reflex second test in 4-6 hrs Name Value Range Interpretation Code Description Data [place] rce(s) Supporting Document(s) Leukocytes [#/volume] in Blood by Automated count 9.0 10*3/uL 4.45-10 .71 N [facility] Erythrocytes [#/volume] in Blood by Automated count 5.38 10*6/uL 4.3- 6.1 N [facility] Hemoglobin [Moles/volume] in Blood 16.6 g/dL 13-18 N [facility] Hematocrit [Volume Fraction] of Blood by Automated count 47.1 % 4 2-52 N [facility] Erythrocyte mean corpuscular volume [Ent itic volume] in Cord blood by Automated count 87.5 fL 80-96 N [facility] ital Erythrocyte mean corpuscular hemoglobin [Entitic mass] by Automated count 30.9 pg 27-31 [facility] Erythrocyte mean corpuscular hemoglobin concentration [Mass/volume] in Cord blood 35.2 g/dL 33-37 N [facility] ital Erythrocyte distribution width [Entitic volume] by Automated count 13 % 11-15 N [facility] Platelets [#/volume] in Blood by Automated count 246 10*3/uL 130-472 N [facility] Platelet mean volume [Entitic volume] in Blood 9.5 fL 9.1-13.1 N [facility] Neutrophils/100 leukocytes in Blood by Automated count 55.4 % 41- 77 N [facility] Neutrophils [#/volume] in Blood by Automated count 5.0 U 1.7-7.6 N [facility] Lymphocytes/100 leukocytes in Blood by Automated count 36.9 % 14- 46 N [facility] Lymphocytes [#/volume] in Blood by Automated count 3.3 U 0.6-4.6 N [facility] Monocytes/100 leukocytes in Blood by Automated count 6.6 % 4-12 N [facility] Monocytes [#/volume] in Blood by Automated count 0.6 U 0.2-1.2 N [facility] Eosinophils/100 leukocytes in Blood by Automated count 0.6 % 0-7 N [facility] Eosinophils [#/volume] in Blood by Automated count 0.1 U 0.0-0.5 N [facility] Basophils/100 leukocytes in Blood by Automated count 0.3 % 0.4-1.3 Below low normal [facility] Basophils [#/volume] in Blood by Automated count 0.0 U 0.0-0.2 [facility] NUCLEATED RED BLOOD CELL 0 % [facility] NUCLEATED RED BLOOD CELL# 0 U [facility] Immature granulocytes [Presence] in Blood by Automated count 0-2 N [facility] Immature granulocytes [#/volume] in Blood by Automated count 0.0 U 0-0.1 N [facility] Manual Differential panel - Blood NO [facility] ID Date Data Source [id number] 02/05/2020 10:07:00 PM EDT [facility] Special Instructions: Lab may order repe at test if initial test elevatedPhysician If elevated, reflex second test in 4-6 hrs Name Value Range Interpretation Code Description Data [place] rce(s) Supporting Document(s) Prothrombin Time (Patient) 11.2 s 9.6-12.3 N [facility] INR 1.1 0.9-1.1 [facility] THE INR IS OPERATIONALLY DEFINED FOR GILMA SH PLASMA FROMPATIENTS STABILIZED ON ORAL ANTICOAGULANTS.ROUTINE ANTICOAGULANT THERAPY 2.0-3.0RECURRENT SYSTEMIC EMBOLISM/HEART VALVE REPLACEMENT 2.5-3.5 aPTT.lupus sensitive ([place] screen) 26.4 s 22.7-31.6 N [facility] ID Date Data Source [id number] 02/05/2020 10:19:00 PM EDT [facility] Special Instructions: Lab may order repe at test if initial test elevatedPhysician If elevated, reflex second test in 4-6 hrs Name Value Range Interpretation Code Description Data [place] rce(s) Supporting Document(s) Lactic w Rfx (if elevated) 0.8 mmol/L 0.5-2.2 N [facility] ID Date Data Source [id number] 02/05/2020 10:19:00 PM EDT [facility] Special Instructions: Lab may order repe at test if initial test elevatedPhysician If elevated, reflex second test in 4-6 hrs Name Value Range Interpretation Code Description Data [place] rce(s) Supporting Document(s) Urea nitrogen [Mass/volume] in Serum or Plasma 8 mg/dL 9-23 Below low normal [facility] Sodium [Moles/volume] in Serum or Plasma 137 mmol/L 132-146 [facility] Potassium [Moles/volume] in Serum or Plasma 3.7 mmol/L 3.5-5.5 [facility] Chloride [Moles/volume] in Serum or Plasma 105 mmol/L 99-109 [facility] Carbon dioxide, total [Moles/volume] in Serum or Plasma 25 mmol/L 20 -31 N [facility] Anion gap in Serum or Plasma 11 mmol/L 8-16 [facility] Glucose [Mass/volume] in Serum or Plasma 92 mg/dL 74-106 [facility] Creatinine 0.7 mg/dL 0.5-1.1 [facility] Glomerular filtration rate/1.73 sq M.pre dicted [Volume Rate/Area] in Serum or Plasma Greater Than 60 ABOVE 60 [facility] Alanine aminotransferase [Enzymatic acti vity/volume] in Serum or Plasma by With P-5'-P 36 U/L 10-49 N [facility] ital Aspartate aminotransferase [Enzymatic ac tivity/volume] in Serum or Plasma by With P-5'-P 22 U/L 0-33 N [facility] pital Alkaline phosphatase [Enzymatic activity/volume] in Serum or Plasma 55 U/L 45-129 N [facility] Calcium [Mass/volume] in Serum or Plasma 9.4 mg/dL 8.5-10.1 N [facility] Bilirubin.total [Mass/volume] in Serum or Plasma 0.7 mg/dL 0.3-1.2 N [facility] Albumin [Mass/volume] in Serum or Plasma by Bromocresol purple (BCP) dye binding method 3.9 g/dL 3.2-4.8 N [facility] ital Protein [Mass/volume] in Serum or Plasma 6.6 g/dL 5.7-8.2 [facility] ID Date Data Source [id number] 02/05/2020 09:19:00 PM EDT [facility] ED Physician Documentation NAME: PIPER LICEA : 1970 AGE: 49 MR#: [id number] SERVICE DATE: 02/05/[address]: Skip Rutherford MD PRIMARY CARE DR: Kelli Mcmanus ROOM#: HPI (Adult, General) General Chief Complaint: GI Stated Complaint: ABD PAIN, BACK PAIN Resident [facility], travel outisde home, exposure to hot tubs:: [...] Hx/Date of Tetanus, Diphtheria Vaccination: No (UNKNOWN) [facility] Medical History (Updated 02/01/20 @ 19:38 by [...] Appearance Clear, Urine pH 7.0, Ur Specific [place] 1.008,Urine Protein Negative, Urine Ketones Trace A, [...] % (Auto) 55.4, Lymph % (Auto) 36.9, [place] % (Auto) 6.6, Eos % (Auto) 0.6, Baso % (Auto) 0.3 L, Lymph # (Auto) 3.3, Abs Immat Gran (auto) 0.0, Add Manual Diff No, Absolute Neutrophils 5.0, Monocytes # 0.6, Absolute Eosinophils 0.1, Absolute Basophils 0.0 02/05/20 21:35: PT 11.2, INR 1.1, PTT ([place]) 26.4 02/05/20 21:35: Sodium 137, Potassium 3.7, [...] DA Report Cosigners: D: LYNN 02/05/202118 T: ANITRALUISAI 02/05/202118 CC: Kelli OLI Yonathan Name Value Range Interpretation Code Description Data [place] rce(s) Supporting Document(s) ID Date Data Source [id number] 02/05/2020 10:00:00 PM EDT [facility] Reason for ordering culture: Abnormal fi ndings UAMethod of Collection:: Voided Name Value Range Interpretation Code Description Data [place] rce(s) Supporting Document(s) Color of Urine [facility] Appearance of Urine CLEAR [facility] pH of Urine by Test strip 7.0 5-8 [facility] Specific gravity of Urine by Refractometry 1.008 1.005-1.030 [facility] Leukocyte esterase [Presence] in Urine by Test strip NEGAT JALEN [facility] Nitrite [Presence] in Urine by Test strip NEGATIVE [facility] Protein [Presence] in Urine by Test strip NEGATIVE [facility] Glucose [Mass/volume] in Urine by Automated test strip NEGATIVE NEG ATIVE [facility] Ketones [Presence] in Urine by Test strip NEGATI VE Abnormal (applies to non- numeric results) [facility] Urobilinogen [Presence] in Urine 0.2-1 EU/dl [facility] Bilirubin.total [Presence] in Urine by Automated test strip NEGATIVE [facility] Erythrocytes [#/volume] in Urine by Test strip NEGATIVE NEGATIVE [facility] URINE MICROSCOPIC? (CIF) NO [facility] ID Date Data Source [id number] 02/01/2020 03:30:00 PM EDT [facility] Name Value Range Interpretation Code Description Data [place] rce(s) Supporting Document(s) Leukocytes [#/volume] in Blood by Automated count 10.0 10*3/uL 4.45-1 0.71 N [facility] Erythrocytes [#/volume] in Blood by Automated count 5.61 10*6/uL 4.3- 6.1 N [facility] Hemoglobin [Moles/volume] in Blood 17.4 g/dL 13-18 N [facility] Hematocrit [Volume Fraction] of Blood by Automated count 48.4 % 4 2-52 N [facility] Erythrocyte mean corpuscular volume [Ent itic volume] in Cord blood by Automated count 86.3 fL 80-96 N [facility] ital Erythrocyte mean corpuscular hemoglobin [Entitic mass] by Automated count 31.0 pg 27-31 [facility] Erythrocyte mean corpuscular hemoglobin concentration [Mass/volume] in Cord blood 36.0 g/dL 33-37 N [facility] ital Erythrocyte distribution width [Entitic volume] by Automated count 13 % 11-15 [facility] Platelets [#/volume] in Blood by Automated count 256 10*3/uL 130-472 [facility] Platelet mean volume [Entitic volume] in Blood 9.5 fL 9.1-13.1 [facility] Neutrophils/100 leukocytes in Blood by Automated count 55.4 % 41- 77 [facility] Neutrophils [#/volume] in Blood by Automated count 5.6 U 1.7-7.6 [facility] Lymphocytes/100 leukocytes in Blood by Automated count 35.2 % 14- 46 [facility] Lymphocytes [#/volume] in Blood by Automated count 3.5 U 0.6-4.6 [facility] Monocytes/100 leukocytes in Blood by Automated count 8.5 % 4-12 [facility] Monocytes [#/volume] in Blood by Automated count 0.9 U 0.2-1.2 [facility] Eosinophils/100 leukocytes in Blood by Automated count 0.5 % 0-7 [facility] Eosinophils [#/volume] in Blood by Automated count 0.1 U 0.0-0.5 [facility] Basophils/100 leukocytes in Blood by Automated count 0.3 % 0.4-1.3 Below low normal [facility] Basophils [#/volume] in Blood by Automated count 0.0 U 0.0-0.2 [facility] NUCLEATED RED BLOOD CELL 0 % [facility] NUCLEATED RED BLOOD CELL# 0 U [facility] Immature granulocytes [Presence] in Blood by Automated count 0-2 [facility] Immature granulocytes [#/volume] in Blood by Automated count 0.0 U 0-0.1 [facility] Manual Differential panel - Blood NO [facility] ID Date Data Source [id number] 02/01/2020 03:59:00 PM EDT [facility] Name Value Range Interpretation Code Description Data Geneva rce(s) Supporting Document(s) Urea nitrogen [Mass/volume] in Serum or Plasma 6 mg/dL 9-23 Below low normal [facility] Sodium [Moles/volume] in Serum or Plasma 134 mmol/L 132-146 [facility] Potassium [Moles/volume] in Serum or Plasma 4.0 mmol/L 3.5-5.5 [facility] Chloride [Moles/volume] in Serum or Plasma 101 mmol/L 99-109 [facility] Carbon dioxide, total [Moles/volume] in Serum or Plasma 28 mmol/L 20 -31 [facility] Anion gap in Serum or Plasma 9 mmol/L 8-16 [facility] Glucose [Mass/volume] in Serum or Plasma 92 mg/dL 74-106 [facility] Creatinine 0.9 mg/dL 0.5-1.1 [facility] Glomerular filtration rate/1.73 sq M.pre dicted [Volume Rate/Area] in Serum or Plasma Greater Than 60 ABOVE 60 [facility] Calcium [Mass/volume] in Serum or Plasma 9.9 mg/dL 8.5-10.1 [facility] ID Date Data Source [id number] 02/01/2020 02:32:00 PM EDT [facility] Name: PIPER LICEA : 1970 Age: 49 MR#: [id number] Admit Date: 02/01/20 Provider: Naveed Hannon MD [...] pt states has had hernia x 4yrs Ticket Sorter Required: No Is patient in pain?: No [...] Screening Screening Have you traveled outside of [facility] or [facility] in the last 14 days.: No Has [...] nourished Orientation: alert, awake and oriented x3 [facility] Head: normal to inspection, normocephalic, atraumatic and [...] hernia without obstruction or gangrene Plan - Elliesunshine Riddhi: 49 yoM who comes in with [...] hernia without obstruction or gangrene SNOMED Code(s): 795228365 Category: Surgical Dictated by: <Electronically signed by Naveed Hannon > Naveed Hannon 02/01/201939 Naveed Hannon SIGNATURE DA Report Cosigners: D: ROBINSON 02/01/20 1432 T: HARRIS 02/01/20 1432 CC: Name Value Range Interpretation Code Description Data [place] rce(s) Supporting Document(s) ID Date Data Source [id number] 12/20/2019 10:21:00 AM EDT [facility] Patient Name: PIPER LICEA DO B: 1970 Sex: M Pt Unit #: [id number] Location:[facility] Provider: Visit Date/Time: 12/20/19 Primary Insurance: [employer] Secondary Insurance: Self [...] mole. But has changed and came back. [employer] added another nasal spray with flonase but [...] Screening Screening Have you traveled outside of [facility] or [facility] in the last 14 days.: No Has patient experienced coronavirus symptoms: No [facility] Social History (Updated 12/20/19 @ [...] Other: Right upper chest/shoulder region. Note a emergency medcl emt griffin surface approx 1-2cm in diameter at longest region. On top of this is a triple nodule raised darker brown nevi. Non-tender. Assessment Plan Assessment Plan (1) Suspicious nevus: Status: Acute Comment: Referred to derm for biopsy. Code(s): D22.9 - Melanocytic nevi, unspecified SNOMED Code(s): 779837894 Category: Medical Orders: Referrals: Dermatology Referral Orders Other Medications: New: fluticasone propionate 50 mcg/actuation (Flonase Allergy Relief) administer into each nostril 2 sprays intranasal QDAY 1 unit 5RF Electronically Signed By: <Electronically signed by Kelli Mcmanus NP> Date/Time Signed: 12/20/19 1051 Name Value Range Interpretation Code Description Data [place] rce(s) Supporting Document(s) ID Date Data Source [id number] 10/19/2019 09:57:00 AM EDT [facility] Patient Name: PIPER LICEA DO B: 1970 Sex: M Pt Unit #: [id number] Location:[facility] Provider: Visit Date/Time: 10/19/19 Primary Insurance: [employer] Secondary Insurance: Self Pay Intake Vital Signs [...] Pt would like to be referred to weather stripper for testing. Pt requests a sleep study. He wakes up a lot during the night , tired throughout the day and last night he felt like he could not breathe. Ticket Sorter Required: No Accompanied by: Self / Same [...] Screening Screening Have you traveled outside of [facility] or [facility] in the last 14 days.: No Has patient experienced coronavirus symptoms: No [facility] Social History (Updated 07/12/19 @ [...] Kelli Mcmanus NP: I will refer to weather stripper. He is taking 2 allergy medications already at this point. Testing may be helpful, possible serum injections. (2) Umbilical hernia: Status: Acute Comment: Referral to gen surg. Code(s): K42.9 - Umbilical hernia without obstruction or gangrene SNOMED Code(s): 015163457 Category: Medical Orders: Referrals: General Surgery Referral (3) Sleep apnea: Status: Acute Comment: Referred for sleep study and possible CPAP fitting Code(s): G47.30 - Sleep apnea, unspecified SNOMED Code(s): 87266556 Category: Medical Electronically Signed By: <Electronically signed by Kelli Mcmanus NP> Date/Time Signed: 10/19/19 1037 Name Value Range Interpretation Code Description Data [place] rce(s) Supporting Document(s) ID Date Data Source [id number] 07/31/2019 11:34:00 AM [facility] Method of Collection:: Voided Name Value Range Interpretation Code Description Data [place] rce(s) Supporting Document(s) Color of Urine [facility] Appearance of Urine CLEAR [facility] pH of Urine by Test strip 8.0 5-8 [facility] Specific gravity of Urine by Refractometry 1.022 1.005-1.030 [facility] Leukocyte esterase [Presence] in Urine by Test strip NEGAT JALEN [facility] Nitrite [Presence] in Urine by Test strip NEGATIVE [facility] Protein [Presence] in Urine by Test strip NEGATIVE [facility] Glucose [Mass/volume] in Urine by Automated test strip NEGATIVE NEG ATIVE [facility] Ketones [Presence] in Urine by Test strip NEGATIVE [facility] Urobilinogen [Presence] in Urine 0.2-1 EU/dl [facility] Bilirubin.total [Presence] in Urine by Automated test strip NEGATIVE [facility] Erythrocytes [#/volume] in Urine by Test strip NEGATIVE NEGATIVE [facility] URINE MICROSCOPIC ADDED NO [facility] ID Date Data Source [id number] 07/31/2019 11:39:00 AM [facility] Method of Collection:: Voided Name Value Range Interpretation Code Description Data [place] rce(s) Supporting Document(s) Leukocytes [#/volume] in Blood by Automated count 7.7 10*3/uL 4.45-10 .71 [facility] Erythrocytes [#/volume] in Blood by Automated count 5.92 10*6/uL 4.3- 6.1 [facility] Hemoglobin [Moles/volume] in Blood 17.9 g/dL 13-18 N [facility] Hematocrit [Volume Fraction] of Blood by Automated count 51.5 % 4 2-52 [facility] Erythrocyte mean corpuscular volume [Ent itic volume] in Cord blood by Automated count 87.0 fL 80-96 N [facility] ital Erythrocyte mean corpuscular hemoglobin [Entitic mass] by Automated count 30.2 pg 27-31 [facility] E[facility] mean corpuscular hemoglobin concentration [Mass/volume] in Cord blood 34.8 g/dL 33-37 N [facility] ital Erythrocyte distribution width [Entitic volume] by Automated count 13 % 11-15 [facility] Platelets [#/volume] in Blood by Automated count 239 10*3/uL 130-472 [facility] Platelet mean volume [Entitic volume] in Blood 9.9 fL 9.1-13.1 [facility] Neutrophils/100 leukocytes in Blood by Automated count 58.8 % 41- 77 [facility] Neutrophils [#/volume] in Blood by Automated count 4.5 U 1.7-7.6 [facility] Lymphocytes/100 leukocytes in Blood by Automated count 32.6 % 14- 46 [facility] Lymphocytes [#/volume] in Blood by Automated count 2.5 U 0.6-4.6 [facility] Monocytes/100 leukocytes in Blood by Automated count 7.8 % 4-12 [facility] Monocytes [#/volume] in Blood by Automated count 0.6 U 0.2-1.2 [facility] Eosinophils/100 leukocytes in Blood by Automated count 0.6 % 0-7 [facility] Eosinophils [#/volume] in Blood by Automated count 0.1 U 0.0-0.5 [facility] Basophils/100 leukocytes in Blood by Automated count 0.1 % 0.4-1.3 Below low normal [facility] Basophils [#/volume] in Blood by Automated count 0.0 U 0.0-0.2 [facility] NUCLEATED RED BLOOD CELL 0 % [facility] NUCLEATED RED BLOOD CELL# 0 U [facility] Immature granulocytes [Presence] in Blood by Automated count 0-2 N [facility] Immature granulocytes [#/volume] in Blood by Automated count 0.0 U 0-0.1 [facility] Manual Differential panel - Blood NO [facility] ID Date Data Source [id number] 07/31/2019 12:13:00 PM EST [facility] Method of Collection:: Voided Name Value Range Interpretation Code Description Data [place] rce(s) Supporting Document(s) Urea nitrogen [Mass/volume] in Serum or Plasma 17 mg/dL 9-23 [facility] Sodium [Moles/volume] in Serum or Plasma 138 mmol/L 132-146 [facility] Potassium [Moles/volume] in Serum or Plasma 4.5 mmol/L 3.5-5.5 [facility] Chloride [Moles/volume] in Serum or Plasma 105 mmol/L 99-109 [facility] Carbon dioxide, total [Moles/volume] in Serum or Plasma 28 mmol/L 20 -31 [facility] Anion gap in Serum or Plasma 10 mmol/L 8-16 N [facility] Glucose [Mass/volume] in Serum or Plasma 97 mg/dL 74-106 [facility] Creatinine 0.9 mg/dL 0.5-1.1 [facility] Glomerular filtration rate/1.73 sq M.pre dicted [Volume Rate/Area] in Serum or Plasma Greater Than 60 ABOVE 60 [facility] Alanine aminotransferase [Enzymatic acti vity/volume] in Serum or Plasma by With P-5'-P 44 U/L 10-49 [facility] ital Aspartate aminotransferase [Enzymatic ac tivity/volume] in Serum or Plasma by With P-5'-P 20 U/L 0-33 [facility] pital Alkaline phosphatase [Enzymatic activity/volume] in Serum or Plasma 63 U/L 45-129 [facility] Calcium [Mass/volume] in Serum or Plasma 9.1 mg/dL 8.5-10.1 [facility] Bilirubin.total [Mass/volume] in Serum or Plasma 1.0 mg/dL 0.3-1.2 [facility] Albumin [Mass/volume] in Serum or Plasma by Bromocresol purple (BCP) dye binding method 4.1 g/dL 3.2-4.8 [facility] ital Protein [Mass/volume] in Serum or Plasma 7.1 g/dL 5.7-8.2 [facility] ID Date Data Source [id number] 07/31/2019 12:13:00 PM EST [facility] Method of Collection:: Voided Name Value Range Interpretation Code Description Data [place] rce(s) Supporting Document(s) Triglycerides 174 mg/dL 0-150 Above high normal [facility] Cholesterol 212 mg/dL 120-200 Above high normal [facility] HDL Cholesterol 44 mg/dL [facility] HDL Less than 40 mg/dL: Major risk for CHDHDL Greater than 59 mg/dL: Low risk for CHD LDL Cholesterol, Calc 134 mg/dL 0-100 Above high normal [facility] ID Date Data Source [id number] 07/12/2019 09:52:00 AM EST [facility] Patient Name: PIPER LICEA DO B: 1970 Sex: M Pt Unit #: [id number] Location:[facility] Provider: Visit Date/Time: 07/12/19 Primary Insurance: [employer] Secondary Insurance: Self Pay Intake Vital Signs [...] Declines today. Pretest education received and acknowledged [facility] Social History (Updated 07/12/19 @ [...] Safety: Reports Bathroom: Grab bars, Lighting: Adequate, [place]: No throw rugs and Stairs: Handrail available [...] - Essential (primary) hypertension Plan - Kelli Yonathan, SUPERVISOR [employer]: Well controlled. Labs ordered. Follow up in [...] swelling, mass and lump, neck SNOMED Code(s): 121397924 Category: Medical Orders Other Medications: New: loratadine [...] rce(s) Supporting Document(s) ID Date Data Source [id number] 05/29/2019 01:24:00 PM EST [facility] 1 OrderSheet [facility] Emergency Department [address] [place] [address] Phone #: ext- [phone] 05/29/2019 13:00 Patient: PIPER LICEA Sex: M : 1970 Age: 48yWEIGHT:113.3 kg (S) HEIGHT:70 inches (S) BMI:35.8ALLERGIES: No Known Drug AllergyCHIEF COMPLAINT: painDIAGNOSIS: Pain in lower limb, Sprain of joint, Muscle strainLAB ORDERSOrder Description Priority Entered Acknowledged InitialedCBC w Diff STAT 13:17 05/29/2019 13:19 Antonia Fuentes RN, M.D.;CMP STAT 13:17 05/29/2019 13:19 Antonia Fuentes RN.D.;Magnesium STAT 13:17 05/29/2019 13:19 Antonia Fuentes RN, [...] rce(s) Supporting Document(s) ID Date Data Source [id number] 05/29/2019 01:24:00 PM EST [facility] 1 Medication Reconciliation Report [facility] Emergency Department [address] [place] [address] Phone #: mrp- [phone] 05/29/2019 13:00 Patient: PIPER LICEA Sex: M [...] 15 tablet. Refills: 0. Sub[facility] permitted[facility] [place] [address]. FaxNumber: . -- Antonia Frazier M.D. Name Value Range Interpretation Code Description Data [place] rce(s) Supporting Document(s) ID Date Data Source [id number] 05/29/2019 01:24:00 PM [place] [address] Medication Administration Record [facility] Emergency Department [address] [place] [address] Phone #: ext- [phone] 05/29/2019 13:00 Patient: PIPER LICEA Sex: M : 1970 Age: 48yWeight: 113.3 kgHeight/Length: 70 inBMI: 35.8ALLERGIES: No Known Drug Allergy Date/Time Medication Administered Medication OrderedGiven TORADOL [IM] (KETOROLAC Toradol IM 30 mg (NOW x1)13:31 05/29/2019 TROMETHAMINE)Scot Mena RN Dose: 30 mg IMGiven CYCLOBENZAPRINE [PO] Cyclobenzaprine PO 10 mg (13:28 05/29/2019 Dose: 10 mg Tablets PO x1)Scot Mena RN Name Value Range Interpretation Code Description Data [place] rce(s) Supporting Document(s) ID Date Data Source [id number] 05/29/2019 01:24:00 PM [facility] 1 General Instructions [facility] Emergency Department [address] [place] [address] Phone #: ext- [phone] 05/29/2019 13:00 Patient: [...] 15 tablet. Refills: 0. Substitution permitted.Pharmacy - [facility] - [address] [place] [address]. FaxNumber: [phone].Follow-up:Follow up with your healthcare provider in three [...] to mechanical stress, such asworking at a [employer] terminal for long periods or work that requires repetitive motions of the arms orhands. It can also be caused by emotional stress, such as problems on the job or in your personal 2 General Instructions [facility] Emergency Department [address] [place] [address] Phone #: ext- [phone] 05/29/2019 13:00 Patient: [...] any poor work habits. You may use ftah-omy-knugdse pain medicine to control pain, unless another [...] if you don'trespond to home treatment alone.Call [phone] if you have: 3 General Instructions [facility] Emergency Department [address] [place] [address] Phone #: ext- [phone] 05/29/2019 13:00 Patient: [...] your pain worsens, regardless of its location [id number] [employer]. [address] [place] [address]. All rights reserved. This information is not [...] alternate ice and heat. You may use rznu-sty-geirlfv pain medicine to control pain, unless another [...] and run on the 4 General Instructions [facility] Emergency Department [address] [place] [address] Phone #: ext- [phone] 05/29/2019 13:00 Patient: PIPER LICEA Sex: M : 1970 Age: 48y injured leg without pain.Follow-up careFollow up with your healthcare provider, or as advised.When to seek medical adviceCall your healthcare provider right away if any of these occur: The toes of the injured leg become swollen, cold, blue, numb, or tingly Pain or swelling increases [phone] [employer]. [address] [place] [address], [place] [address]. All rights reserved. This information is not [...] rce(s) Supporting Document(s) ID Date Data Source [id number] 05/29/2019 01:24:00 PM EST [facility] 1 Clinical Report - Nurses [facility] Emergency Department [address] [place] [address] Phone #: ext- [phone] 05/29/2019 13:00 Patient: PIPER LICEA Sex: M : 1970 Age: 48yTRIAGEHistorian: patient.Triage time: 13:00 05/29/2019. Acuity: LEVEL 4.Chief Complaint: LEFT LOWER EXTREMITY PAIN.Alert. No acute distress.( pt c/o left hamstring cramp for past 3-4 days, some numbness feeling to back of knee. 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 (last night).SEPSIS SCREEN: NEGATIVE. Negative (no infection suspected/documented). --13:05/29/19 JoeAugust R.N.13:05/29/19. BP: 120/85. MAP: 96. HR: 63. RR: 16. O2 saturation: 98%. Temp: 98.4 F (oral). Painlevel now: 02/07. --13:04 05/29/19 Joe Rhoda, R.N.Weight: 113.3 kg stated. Height/Length: 70 inches Per Patient. BMI: 35.8. --13:00 05/29/19 Joe August,R.N.MedicationsCeleXA Oral. --13:05/29/19 Mirellaaugust, R.N. Xanax Oral. --13:05/29/19 Mirella August R.N. Depakote Oral. --13:05/29/19 Joe August, R.N. Gabapentin Oral. --13:05/29/19 Joe August RPao. Meloxicam Oral. --13:05/29/19 Joe AugustCathleen.AllergiesNo Known Drug Allergy. --13:05/29/19 Joe, AugustCathleen.PROBLEMS:Arthritis.Anxiety Reaction.Depression. --13:05/29/19 Rhoda Diaz R.N.ADDITIONAL SURGERIES:Heart ablation. --13:05/29/19 Joe RhodaCathleen.HistorySOCIAL HX: Never smoker. No alcohol use or drug use. He was offered HIV testing but declined. He 2 Clinical Report - Nurses [facility] Emergency Department [address] [place] [address] Phone #: ext- [phone] 05/29/2019 13:00 Patient: PIPER LICEA Sex: M : 1970 Age: 48y has [...] No skin integrity risk identified. --13:04 05/29/19 Mirella, August, R.N. Interventions To treatment room. --13:05/29/19 [facility] Hospital[facility], R.N.PHYSICAL ASSESSMENTAmbulatory to room.GENERAL / NEURO / [...] on. Patient ready for evaluation- EDphysician notified. --13:05/29/19August, R.N. Patient gowned. --13:05/29/19August, R.N. Extremity elevated. Patient gowned. Reassurance given. Call light placed in reach. Side rails up x 2. Bed placed in lowest position. Brakes of bed on. Patient ready for evaluation- ED physician notified. 3 Clinical Report - Nurses [facility] Emergency Department [address] [place] [address] Phone #: ext- [phone] 05/29/2019 13:00 Patient: PIPER LICEA [facility]#: [id number] Sex: M : 1970 Age: 48y --13:19 [...] Patient verbalized understanding. Written instructions provided in Sinhala. The patient was discharged by the physician. [...] rce(s) Supporting Document(s) ID Date Data Source [id number] 05/29/2019 01:24:00 PM [facility] 1 Clinical Report - Physicians/Mid Levels [facility] Emergency Department [address] [place] [address] Phone #: ext- [phone] 05/29/2019 13:00 Patient: PIPER LICEA Sex: M [...] and is still present (48 year old wth crampy pain past 3 days. not getting [...] Oral. 2 Clinical Report - Physicians/Mid Levels [facility] Emergency Department [address] [place] [address] Phone #: ext- [phone] 05/29/2019 13:00 Patient: [...] 6.30) 3 Clinical Report - Physicians/Mid Levels [facility] Emergency Department [address] [place] [address] Phone #: ext- [phone] 05/29/2019 13:00 Patient: PIPER LICEA Sex: M [...] PROCEDURES 4 Clinical Report - Physicians/Mid Levels [facility] Emergency Department [address] [place] [address] Phone #: ext- [phone] 05/29/2019 13:00 [id number] Sex: M : 1970 Age: 48y Course [...] visit. Do not drive or operate dangerous [employer]. CONTROLLED SUBSTANCE WARNINGS. GENERAL WARNINGS: Return or contact your physician immediately if your condition worsens or changes unexpectedly, if not improving as expected, or if other problems arise. Prescription Medications: cyclobenzaprine tablet 10 mg tablet Administer 1 tablet three times a day as needed for pain for 5 days -- Dispense 15 tablet. Refills: 0. Substitution permitted. Pharmacy - [facility] - [address] [place] [address]. . Follow-up: Follow up with your healthcare provider in three days if not better. Call for an appointment. Reason for referral: evaluation and treatment. Summary of care provided to patient, family and follow-up provider via paper. 5 Clinical Report - Physicians/Mid Levels [facility] Emergency De partment [address] [place] [address] Phone #: ext- [phone] 05/29/2019 13:00 Patient: PIPER LICEA Sex: M : 1970 Age: 48y Understanding of the discharge instructions verbalized by patient and family.(Electronically signed by Antonia Frazier M.D. 05/30/2019 06:46) Name Value Range Interpretation Code Description Data [place] rce(s) Supporting Document(s) ID Date Data Source [id number] 05/29/2019 02:17:00 PM EST [facility] Name Value Range Interpretation Code Description Data [place] rce(s) Supporting Document(s) CBC W/AUTOMATED DIFF [facility] COMPLETE BLOOD COUNT Leukocytes [#/volume] in Blood by Automated count 8.3 10^3/uL 4.2 - 1 1.0 [facility] Erythrocytes [#/volume] in Blood by Automated count 5.66 10^6/uL 4. 50 - 6.30 [facility] Hemoglobin [Mass/volume] in Blood 16.8 g/dL 14.0 - 16.0 H [facility] Hematocrit [Volume Fraction] of Blood by Automated count 48.9 % 4 1.0 - 51.0 [facility] Erythrocyte mean corpuscular volume [Entitic volume] by Auto mated count 86.4 fL 80.0 - 94.0 [facility] Erythrocyte mean corpuscular hemoglobin [Entitic mass] by Automated count 29.7 pg 27.0 - 34.0 [facility] Erythrocyte mean corpuscular hemoglobin concentration [Mass/volume] by Automated count 34.4 g/dL 31.0 - 36.0 [facility] Erythrocyte distribution width [Ratio] by Automated count 12.9 % 11.5 - 14.8 [facility] Platelets [#/volume] in Blood by Automated count 233 10^3/uL 150 - 45 0 [facility] Platelet mean volume [Entitic volume] in Blood by Automated count 9.6 fL 7.4 - 10.4 [facility] Neutrophils/100 leukocytes in Blood by Automated count 54.3 % 37. 0 - 80.0 [facility] Lymphocytes/100 leukocytes in Blood by Manual count 36.1 % 25.0 - 40.0 [facility] Monocytes/100 leukocytes in Blood by Automated count 8.0 % 3.0 - 8.0 [facility] Eosinophils/100 leukocytes in Blood by Automated count 0.8 % 0.0 - 7.0 [facility] Basophils/100 leukocytes in Blood by Automated count 0.4 % 0.0 - 2.0 [facility] %IG 0.4 % 0.0 - 0.0 H [facility] al %NRBC 0.0 % 0.0 - 0.0 [facility] al Neutrophils [#/volume] in Blood by Automated count 4.51 10^3/uL 2.00 - 6.90 [facility] Lymphocytes [#/volume] in Blood by Automated count 2.99 10^3/uL 0.60 - 3.40 [facility] Monocytes [#/volume] in Blood by Automated count 0.66 10^3/uL 0.00 - 0.90 [facility] Eosinophils [#/volume] in Blood by Automated count 0.07 10^3/uL 0.00 - 0.70 [facility] Basophils [#/volume] in Blood by Automated count 0.03 10^3/uL 0.00 - 0.20 [facility] #IG 0.03 10^3/uL 0.00 - 0.10 [facility] ospital #NRBC 0.00 10^3/uL 0.00 - 0.00 [facility] ospital MANUAL DIFF NOT INDICATED [facility] RBC MORPH NOT INDICATED [facility] Ho spital ID Date Data Source [id number] 05/29/2019 02:14:00 PM EST [facility] Name Value Range Interpretation Code Description Data [place] rce(s) Supporting Document(s) COMPREHENSIVE METABOLIC PANEL [facility] COMPREHENSIVE METABOLIC PANEL Sodium [Moles/volume] in Serum or Plasma 135 mEq/L 134 - 153 [facility] Potassium [Moles/volume] in Serum or Plasma 4.4 mEq/L 3.6 - 5.0 [facility] Chloride [Moles/volume] in Serum or Plasma 100 mEq/L 98 - 107 [facility] Carbon dioxide, total [Moles/volume] in Serum or Plasma 24 MEQ/L 22 - 30 [facility] Glucose [Mass/volume] in Serum or Plasma 102 MG/DL 65 - 110 [facility] BUN 19 MG/DL 7 - 21 [facility] al Creatinine [Mass/volume] in Serum or Plasma 0.7 MG/DL 0.7 - 1.5 [facility] BUN/CREAT 27 8 - 27 [facility] al Protein [Mass/volume] in Serum or Plasma 6.6 G/DL 6.3 - 8.2 [facility] Albumin [Mass/volume] in Serum or Plasma 4.5 G/DL 3.9 - 5.0 [facility] Globulin [Mass/volume] in Serum by calculation 2.1 GM/DL 2.4 - 3.2 L [facility] A/G RATIO 2.1 0.8 - 2.0 H [facility] Calcium [Mass/volume] in Serum or Plasma 9.6 MG/DL 8.4 - 10.2 [facility] Bilirubin.total [Mass/volume] in Serum or Plasma 0.7 MG/DL 0.2 - 1.3 [facility] Alkaline phosphatase [Enzymatic activity/volume] in Serum or Plasma 53 U/L 38 - 126 [facility] Aspartate aminotransferase [Enzymatic activity/volume] in Serum or Plasma 30 U/L 5 - 40 [facility] Alanine aminotransferase [Enzymatic activity/volume] in Seru m or Plasma 46 U/L 7 - 56 [facility] Anion gap 3 in Serum or Plasma 11.0 mmol/L 8.0 - 16.0 [facility] AGE 48 yrs [facility] al NON-AA GFR >60 mL/min [facility] ital AFR AMER GFR >60 mL/min [facility] Ho spital Male GFR In terprentation [...] >32 mL/min Normal ID Date Data Source [id number] 05/29/2019 02:05:00 PM EST [facility] Name Value Range Interpretation Code Description Data [place] rce(s) Supporting Document(s) Magnesium [Mass/volume] in Serum or Plasma 2.1 MG/DL 1.7 - 2.2 [facility] Procedure Social History Code Duration Value Status Description Data Source(s ) 06/30/2020 12:44:00 PM EST Never smoker completed Never s [facility] Smoking 06/30/2020 12:44:00 PM EST Never smoker completed Never s [facility] 05/07/2020 10:59:56 AM EST Former smoker completed Former smoker [facility] Smoking 05/07/2020 10:59:00 AM EST Former smoker completed Former smoker [facility] Smoking 02/05/2020 10:21:00 PM EDT Current every day smoker co mpleted Current every day smoker [facility] Smoking 02/05/2020 10:21:00 PM EDT Current every day smoker co mpleted Current every day smoker [facility] Smoking 02/05/2020 10:21:00 PM EDT Current every day smoker co mpleted Current every day smoker [facility] Smoking 02/05/2020 10:21:00 PM EDT Current every day smoker co mpleted Current every day smoker [facility] 02/05/2020 09:21:10 PM EDT Yes completed Yes [facility] 02/05/2020 09:21:10 PM EDT Yes completed Yes [facility] 02/05/2020 09:21:10 PM EDT Yes completed Yes [facility] 02/05/2020 09:21:10 PM EDT Yes completed Yes [facility] 02/05/2020 09:21:10 PM EDT Current every day smoker co mpleted Current every day smoker [facility] 02/05/2020 09:21:10 PM EDT Yes completed Yes [facility] 02/05/2020 09:21:10 PM EDT Yes completed Yes [facility] 02/05/2020 09:21:10 PM EDT Current every day smoker co mpleted Current every day smoker [facility] 02/05/2020 09:21:10 PM EDT Yes completed Yes [facility] 02/05/2020 09:21:10 PM EDT Yes completed Yes [facility] 02/05/2020 09:21:10 PM EDT Yes completed Yes [facility] 02/05/2020 09:21:10 PM EDT Yes completed Yes [facility] 02/05/2020 09:21:10 PM EDT Current every day smoker co mpleted Current every day smoker [facility] 02/05/2020 09:21:10 PM EDT Yes completed Yes [facility] 02/05/2020 09:21:10 PM EDT Yes completed Yes [facility] 02/05/2020 09:21:10 PM EDT Current every day smoker co mpleted Current every day smoker [facility] 02/05/2020 09:21:10 PM EDT Yes completed Yes [facility] 02/05/2020 09:21:10 PM EDT Yes completed Yes [facility] 02/05/2020 09:21:10 PM EDT Current every day smoker co mpleted Current every day smoker [facility] 02/05/2020 09:21:10 PM EDT Yes completed Yes [facility] 02/05/2020 09:21:10 PM EDT Yes completed Yes [facility] 02/05/2020 09:21:10 PM EDT Current every day smoker co mpleted Current every day smoker [facility] Smoking 02/05/2020 09:21:00 PM EDT Current every day smoker co mpleted Current every day smoker [facility] Smoking 02/05/2020 09:21:00 PM EDT Current every day smoker co mpleted Current every day smoker [facility] Smoking 11/09/2019 12:00:00 AM EDT Patient has never smoked co mpleted Patient has never smoked [facility] 07/12/2019 09:52:02 AM EST Former smoker completed Former smoker [facility] 07/12/2019 09:52:02 AM EST Former smoker completed Former smoker [facility] 07/12/2019 09:52:02 AM EST Former smoker completed Former smoker [facility] 07/12/2019 09:52:02 AM EST Former smoker completed Former smoker [facility] Smoking 07/12/2019 09:52:00 AM EST Former smoker completed Former smoker [facility] Smoking 07/12/2019 09:52:00 AM EST Former smoker completed Former smoker [facility] Smoking 07/12/2019 08:52:00 AM EST Former smoker completed Former smoker [facility] Smoking 07/12/2019 08:52:00 AM EST Former smoker completed Former smoker [facility] Vital Signs ID Date Data Source UNK Name Value Range Interpretation Code Description Data Source(s) Body surface area Derived from formula 2.30 m2 2.30 m2 [facility] ([facility]) Body mass index (BMI) [Ratio] 36.2 kg/m2 36.2 k g/m2 [facility] ([facility]) Body height 70 [in_i] 70 [in_i] [facility] ([facility]) 5'10" Body weight 114.421 kg 114.421 [facility] Body weight 252.25 [lb_av] 252.25 [lb_av] [facility] ([facility]) Oxygen saturation in Arterial blood by Pulse oximetry 98 % 98 % [facility] ([facility]) Respiratory rate 18 /min 18 /min [facility] ( [facility]) Body temperature 99.3 [degF] 99.3 [degF] [facility] ([facility]) Oral Heart rate 62 /min 62 /min [facility] ([facility]) Diastolic blood pressure--sitting 86 mm[Hg] 86 mm[Hg] [facility] ([facility]) Systolic blood pressure--sitting 140 mm[Hg] 140 mm[Hg] [facility] ([facility]) Body surface area 2.32 m2 2.32 m2 [facility] ([facility]) Body surface area Derived from formula 2.32 m2 2.32 m2 [facility] ([facility]) Body mass index (BMI) [Ratio] 34.9 kg/m2 34.9 k g/m2 [facility] ([facility]) Body height 71 [in_i] 71 [in_i] [facility] Body weight 113.400 kg 113.400 kg [facility] ([facility]) Body weight 250.00 [lb_av] 250.00 [lb_av] [facility] ([facility]) Respiratory rate 17 /min 17 /min [facility] ( [facility]) Body temperature 97.3 [degF] 97.3 [degF] [facility] ([facility]) Heart rate 70 /min 70 /min [facility] ([facility]) Diastolic blood pressure 92 mm[Hg] 92 mm[Hg] [facility] ([facility]) Systolic blood pressure 141 mm[Hg] 141 mm[Hg] [facility] ([facility]) Body mass index (BMI) [Ratio] 44.3 [...] [facility]) ID Date Data Source [id number] 02/14/2020 11:42:12 AM EDT [facility] Name Value Range Interpretation Code Description Data Source(s) WEIGHT RECORDED 249.90 pounds 249.90 pounds [facility] Height 70 Inches 070 Inches [facility] ID Date Data Source [id number] 02/09/2020 01:23:31 PM EDT [facility] Name Value Range Interpretation Code Description Data Source(s) WEIGHT RECORDED 250.00 pounds 250.00 pounds [facility] Height 70 Inches 070 Inches [facility]
--- OUTSIDE RECORDS SUMMARY | 2020-07-01 08:54 | CCD ---
Author Author [facility] Address Unknown Phone Unavailable Care Team Providers Care Budget And Policy Analyst Name Role Phone Riddhi [phone] MD Naveed [place] Unavailable Unavailable Riddhi [phone] MD Naveed [place] Unavailable Unavailable Riddhi [phone] Lucio MD Unavailable Unavailable DANIA, CATARINO Unavailable Unavailable [facility]_510, [phone] Unavailable Unavailable Judit Masters MD Unavailable Unavailable [...] Unavailable Unavailable Skip Rutherford MD Unavailable Unavailable Lonedell Falanga, A Johanna MAP PLOTTER Unavailable Unavailable Lonedell Falanga, A Johanna MAP PLOTTER Unavailable Unavailable Amador Falanga, A Johanna MAP PLOTTER Unavailable Unavailable Lonedell Falanga, A Johanna MAP PLOTTER Unavailable Unavailable Amador Falanga, A Johanna MAP PLOTTER Unavailable Unavailable Amador Falanga, A Johanna MAP PLOTTER Unavailable Unavailable Amador Falanga, A Johanna MAP PLOTTER Unavailable Unavailable Lonedell Falanga, A Johanna MAP PLOTTER Unavailable Unavailable Lonedell Falanga, A Johanna MAP PLOTTER Unavailable Unavailable Amador Falanga, A Johanna MAP PLOTTER Unavailable Unavailable Lonedell Falanga, A Johanna MAP PLOTTER Unavailable Unavailable Amador Falanga, A Johanna MAP PLOTTER Unavailable Unavailable Lonedell Falanga, A Johanna MAP PLOTTER Unavailable Unavailable Lonedell Falanga, A Johanna MAP PLOTTER Unavailable Unavailable Amador Falanga, A Johanna MAP PLOTTER Unavailable Unavailable Lonedell Falanga, A Johanna MAP PLOTTER Unavailable Unavailable Amador Falanga, A Johanna MAP PLOTTER Unavailable Unavailable Lonedell Falanga, A Johanna MAP PLOTTER Unavailable Unavailable Lonedell Falanga, A Johanna MAP PLOTTER Unavailable Unavailable Lonedell Falanga, A Johanna MAP PLOTTER Unavailable Unavailable Amador Falanga, A Johanna MAP PLOTTER Unavailable Unavailable Lonedell Falanga, A Johanna MAP PLOTTER Unavailable Unavailable Amador Falanga, A Johanna MAP PLOTTER Unavailable Unavailable Amador Falanga, A Johanna MAP PLOTTER Unavailable Unavailable Amador Falanga, A Johanna MAP PLOTTER Unavailable Unavailable Lonedell Falanga, A Johanna MAP PLOTTER Unavailable Unavailable Lonedell Falanga, A Johanna MAP PLOTTER Unavailable Unavailable Amador Falanga, A Johanna MAP PLOTTER Unavailable Unavailable Lonedell Falanga, A Johanna MAP PLOTTER Unavailable Unavailable Amador Falanga, A Johanna MAP PLOTTER Unavailable Unavailable ANTONIA FRAZIER MD Unavailable Unavailable AMERANTONIA ETIENNE MD Unavailable Unavailable ANTONIA FRAZIER MD Unavailable Unavailable AMANTONIA MERIDA MD Unavailable Unavailable AMERANTONIA ETIENNE MD Unavailable Unavailable AMERANTONIA ETIENNE MD Unavailable Unavailable AMERANTONIA ETIENNE MD Unavailable Unavailable AMERNATANTONIA Perkins MD Unavailable Unavailable AMERANTONIA ETIENNE MD Unavailable [...] Biggs MD Unavailable Unavailable Yonathan, A Kelli MOUNTAIN GUIDE Unavailable Unavailable Yonathan, A Kelli MOUNTAIN GUIDE Unavailable Unavailable Yonathan, A Kelli MOUNTAIN GUIDE Unavailable Unavailable Yonathan, A Kelli MOUNTAIN GUIDE Unavailable Unavailable Yonathan, A Kelli MOUNTAIN GUIDE Unavailable Unavailable Yonathan, A Kelli MOUNTAIN GUIDE Unavailable Unavailable Yonathan, A Kelli MOUNTAIN GUIDE Unavailable Unavailable Yonathan, A Kelli MOUNTAIN GUIDE Unavailable Unavailable Yonathan, A Kelli MOUNTAIN GUIDE Unavailable Unavailable Yonathan, A Kelli MOUNTAIN GUIDE Unavailable Unavailable Yonathan, A Kelli MOUNTAIN GUIDE Unavailable Unavailable Yonathan, A Kelli MOUNTAIN GUIDE Unavailable Unavailable Yonathan, A Kelli MOUNTAIN GUIDE Unavailable Unavailable Yonathan, A Kelli MOUNTAIN GUIDE Unavailable Unavailable Yonathan, A Kelli MOUNTAIN GUIDE Unavailable Unavailable Yonathan, A Kelli MOUNTAIN GUIDE Unavailable Unavailable Yonathan, A Kelli MOUNTAIN GUIDE Unavailable Unavailable Yonathan, A Kelli MOUNTAIN GUIDE Unavailable Unavailable Yonathan, A Kelli MOUNTAIN GUIDE Unavailable Unavailable Yonathan, A Kelli MOUNTAIN GUIDE Unavailable Unavailable Yonathan, A Kelli MOUNTAIN GUIDE Unavailable Unavailable Yonathan, A Kelli MOUNTAIN GUIDE Unavailable Unavailable Yonathan, A Kelli MOUNTAIN GUIDE Unavailable Unavailable Yonathan, A Kelli MOUNTAIN GUIDE Unavailable Unavailable Yonathan, A Kelli MOUNTAIN GUIDE Unavailable Unavailable Yonathan, A Kelli MOUNTAIN GUIDE Unavailable Unavailable Yonathan, A Kelli MOUNTAIN GUIDE Unavailable Unavailable Yonathan, A Kelli MOUNTAIN GUIDE Unavailable Unavailable Yonathan, A Kelli MOUNTAIN GUIDE Unavailable Unavailable Yonathan, A Kelli MOUNTAIN GUIDE Unavailable Unavailable Yonathan, A Kelli MOUNTAIN GUIDE Unavailable Unavailable Yonathan, A Kelli MOUNTAIN GUIDE Unavailable Unavailable Yonathan, A Kelli MOUNTAIN GUIDE Unavailable Unavailable Yonathan, A Kelli MOUNTAIN GUIDE Unavailable Unavailable Yonathan, A Kelli MOUNTAIN GUIDE Unavailable Unavailable Yonathan, A Kelli MOUNTAIN GUIDE Unavailable Unavailable Yonathan, A Kelli MOUNTAIN GUIDE Unavailable Unavailable Yonathan, A Kelil MOUNTAIN GUIDE Unavailable Unavailable Yonathan, A Kelli MOUNTAIN GUIDE Unavailable Unavailable Yonathan, A Kelli MOUNTAIN GUIDE Unavailable Unavailable Yonathan, A Kelli MOUNTAIN GUIDE Unavailable Unavailable Yonathan, A Kelli MOUNTAIN GUIDE Unavailable Unavailable Yonathan, A Kelli MOUNTAIN GUIDE Unavailable Unavailable Yonathan, A Kelli MOUNTAIN GUIDE Unavailable Unavailable Yonathan, A Kelli MOUNTAIN GUIDE Unavailable Unavailable Yonathan, A Kelli MOUNTAIN GUIDE Unavailable Unavailable Yonathan, A Kelli MOUNTAIN GUIDE Unavailable Unavailable Yonathan, A Kelli MOUNTAIN GUIDE Unavailable Unavailable Yonathan, A Kelli MOUNTAIN GUIDE Unavailable Unavailable Yonathan, A Kelli MOUNTAIN GUIDE Unavailable Unavailable Yonathan, A Kelli MOUNTAIN GUIDE Unavailable Unavailable Yonathan, A Kelli MOUNTAIN GUIDE Unavailable Unavailable Yonathan, A Kelli MOUNTAIN GUIDE Unavailable Unavailable Yonathan, A Kelli MOUNTAIN GUIDE Unavailable Unavailable Yonathan, A Kelli MOUNTAIN GUIDE Unavailable Unavailable Yonathan, A Kelli MOUNTAIN GUIDE Unavailable Unavailable Yonathan, A Kelli MOUNTAIN GUIDE Unavailable Unavailable Yonathan, A Kelli MOUNTAIN GUIDE Unavailable Unavailable Yonathan, A Kelli MOUNTAIN GUIDE Unavailable Unavailable Yonathan, A Kelli MOUNTAIN GUIDE Unavailable Unavailable Yonathan, A Kelli MOUNTAIN GUIDE Unavailable Unavailable Yonathan, A Kelli MOUNTAIN GUIDE Unavailable Unavailable Yonathan, A Kelli MOUNTAIN GUIDE Unavailable Unavailable Yonathan, A Kelli MOUNTAIN GUIDE Unavailable Unavailable Yonathan, A Kelli MOUNTAIN GUIDE Unavailable Unavailable Yonathan, A Kelli MOUNTAIN GUIDE Unavailable Unavailable Yonathan, A Kelli MOUNTAIN GUIDE Unavailable Unavailable Yonathan, A Kelli MOUNTAIN GUIDE Unavailable Unavailable Yonathan, A Kelli MOUNTAIN GUIDE Unavailable Unavailable Yonathan, A Kelli MOUNTAIN GUIDE Unavailable Unavailable Yonathan, A Kelli MOUNTAIN GUIDE Unavailable Unavailable Yonathan, A Kelli MOUNTAIN GUIDE Unavailable Unavailable Yonathan, A Kelli MOUNTAIN GUIDE Unavailable Unavailable Yonathan, A Kelli MOUNTAIN GUIDE Unavailable Unavailable Yonathan, A Kelli MOUNTAIN GUIDE Unavailable Unavailable Yonathan, A Kelli MOUNTAIN GUIDE Unavailable Unavailable Colon, Alcon [place] Unavailable Unavailable Althouse, Mirian MOUNTAIN GUIDE Unavailable Unavailable DORRER, RPA P EB PA [...] Biggs MD Unavailable Unavailable Dylan, Jorge Luis Bgigs MD Unavailable Unavailable Dylan, Jorge Luis Biggs [...] Biggs MD Unavailable Unavailable Dylan, Jorge Luis Bgigs MD Unavailable Unavailable Dylan, Jorge Luis Biggs [...] is protected by Article 27-F of the [facility] Public Health law. If you continue you may have access to information: Regarding HIV / AIDS; Provided by facilities licensed or operated by the [facility] Office of Mental Health; or Provided by the [facility] Office for People With Developmental Disabilities. If such information is present, then the following [facility] mandated warning applies: This information has [...] law may result in a fine or mcfp sentence or both. A general authorization for the release of medical or other information is NOT sufficient authorization for further disc losure. Allergies and Adverse Reactions Type Description Substance Reaction Status Data Source(s ) Drug allergy haloperidol haloperidol Other, not listed [facility] No Known Drug Allergies No Known Drug Allergies [facility] Drug allergy No Known Allergies No Known Allergies [facility] rag weed rag weed builds up eye drainage, post nasal d rip [facility] dust mites dust mites builds up drainage in eyes , post na makenna drip [facility] Drug allergy No Known Drug Allergies No Known Drug Allergies [facility] Drug Allergy Drug Allergy NKDA [facility] ([facility]) Encounters Encounter Providers Location Date Indications Data Source(s ) Emergency Attender: Marin Masters MD 06/30/19 12:20:00 PM [facility] - 06/30/2020 05:18:00 PM EST STOMACH PAIN, WEAKNESS [facility] STOMACH PAIN, WEAKNESS Patient discharged. Outpatient Attender: Kelli Mcmanus NP 06/21/2020 05:56:00 PM [facility] Outpatient Attender: Kelli Mcmanus NPReferrer: Kelli castro MOUNTAIN GUIDE 06/21/2020 09:36:00 AM [facility] Outpatient Attender: JEANETTE DURANTConsultant: Kelli Araiza P 06/13/2020 08:02:00 AM [facility] - 06/13/2020 08:02:00 AM [facility] Outpatient Attender: JEANETTE DURANTConsultant: Kelli Araiza P 06/06/2020 01:55:00 PM EST - 06/06/2020 01:55:00 PM [facility] Outpatient Attender: Kelli Mcmanus NPReferrer: Kelli castro MOUNTAIN GUIDE 06/04/2020 01:14:00 PM [facility] - 06/04/2020 01:47:00 PM [facility] Outpatient Attender: JEANETTE DURANTConsultant: Kelli Araiza P 05/28/2020 08:54:00 AM EST - 05/28/2020 08:54:00 AM [facility] Outpatient Attender: JEANETTE DURANTConsultant: Kelli Araiza P 05/20/2020 11:55:00 AM [facility] - 05/20/2020 11:55:00 AM [facility] Outpatient Attender: JEANETTE DURANTConsultant: Kelli Araiza P 05/08/2020 07:54:00 AM [facility] - 05/08/2020 07:54:00 AM [facility] Outpatient Attender: Kelli Mcmanus NPReferrer: Kelli castro MOUNTAIN GUIDE 05/07/2020 10:55:00 AM EST - 05/07/2020 11:28:00 AM EST [facility] Outpatient Attender: ARELI TRIVEDI PAAt tender: JEANETTE DURANTConsultant: Kelli Mcmanus NP 05/06/2020 10:34:00 AM EST - 05/06/2020 10:34:00 AM [facility] Outpatient Attender: [id number] [id number] 05/06/2020 10:00:00 AM EST [facility] ([facility] Outpatient Attender: JEANETTE DURANTConsultant: Kelli Araiza P 05/03/2020 08:55:00 AM EST - 05/03/2020 08:55:00 AM EST [facility] Outpatient Attender: Kelli Mcmanus NPReferrer: Kelli castro NP 04/24/2020 11:39:00 AM EST - 04/24/2020 11:50:00 AM EST [facility] Outpatient Attender: CATARINO CASTROORNConsultant: Kelli castro NP 04/18/2020 12:36:00 PM EST - 04/18/2020 12:36:00 PM [facility] Outpatient Attender: Kelli Mcmanus NP 04/04/2020 10:35:00 AM [facility] R79.89 [facility] R79.89 Outpatient Attender: Kelli Mcmanus NPReferrer: Kelli castro NP 04/04/2020 10:04:00 AM EST - 04/04/2020 10:33:00 AM EST [facility] Outpatient Attender: Kelli Mcmanus NPReferrer: Kelli castro NP 03/13/2020 09:54:00 AM EDT - 03/13/2020 10:40:00 AM EDT [facility] Outpatient Attender: Eb MARTEL 03/04/2020 04: 45:00 PM EDT Neoplasm of uncertain behavior of skin [facility] Neoplasm of uncertain behavior of skin Outpatient Attender: PRIMITIVO MARTEL TECH M-LAB.NONPAR 03/04/2020 02:51:00 PM EDT - 03/06/2020 12:00:00 AM EDT [facility] NONPAR Preadmit Attender: [id number] Naveed Hannon MD 020 12:00:00 AM EDT K42.9/03558 [facility] K42.9/71631 Outpatient Attender: Elton Jennings MD 02/12/2020 02:20:00 AM EDT 941 Eval [facility] 941 Eval Inpatient Attender: Alcon Colon MDAttender: MAGDA RUSH [facility] .Admitter: Alcon Colon 02/12/2020 12:00:00 AM EDT - 02/16/2020 11:37:00 AM EDT 941 Eval [facility] 941 Eval Patient discharged. Outpatient Attender: [...] 941 Eval Outpatient 02/07/2020 06:55:00 PM EDT [facility] Outpatient Attender: Johanna melissa FNPAttender: PHILLIP HODGSON MDReferrer: Kalyan Richardson MDConsultant: Kelli Mcmanus MOUNTAIN GUIDE 02/07/2020 06:08:00 PM EDT - 02/08/2020 12:00:00 PM EDT [facility] Patient discharged. Outpatient Attender: Kalyan Richardson MDConsultant: Kelli valladares MOUNTAIN GUIDE 02/06/2020 02:30:00 PM EDT - 02/06/2020 06:15:00 PM EDT [facility] Patient discharged. Outpatient Attender: Kalyan Richardson MD Family Practice 02/06/2020 1 1:30:00 AM EDT [facility] ([facility]) Outpatient Attender: Kalyan Richardson MDConsultant: Kelli valaldares MOUNTAIN GUIDE 02/06/2020 10:51:00 AM EDT - 02/06/2020 10:51:00 AM EDT [facility] Emergency Attender: Skip Rutherford MD 11/2019 08:55:00 PM EDT - 02/06/2020 01:37:00 AM EDT ABD PAIN, BACK PAIN [facility] ABD PAIN, BACK PAIN Patient discharged. Outpatient Attender: [id number] Naveed Hannon MD 020 03:19:00 PM EDT PRE OP/K42.9 [facility] PRE OP/K42.9 Outpatient Attender: [id number] Naveed Hannon MDReferrer: Veda Mcmanus MOUNTAIN GUIDE 02/01/2020 02:31:00 PM EDT - 02/01/2020 03:13:00 PM EDT [facility] Outpatient Attender: Kelli Mcmanus NPReferrer: Kelli castro MOUNTAIN GUIDE 12/20/2019 10:19:00 AM EDT [facility] Outpatient Attender: Kelli Mcmanus NP 11/16/2019 07: 30:00 PM EDT Snoring, Excessive Daytime Sleepiness, Anpea, HTN [facility] Snoring, Excessive Daytime Sleepiness, A npea, HTN Outpatient Attender: CHANCE WELCH MD Main Office 11/09/2019 01:15:00 PM EDT [facility] Outpatient Attender: Kelli Mcmansu NPReferrer: Kelli castro MOUNTAIN GUIDE 10/19/2019 09:56:00 AM EDT - 10/19/2019 10:31:00 AM EDT [facility] Outpatient Attender: Kelli Mcmanus NP 07/31/2019 11:05:00 AM EST Z00.00,I10 [facility] Z00.00,I10 Outpatient Attender: Kelli Mcmanus NPReferrer: Kelli castro MOUNTAIN GUIDE 07/12/2019 09:48:00 AM EST - 07/12/2019 10:15:00 AM EST [facility] Emergency Attender: ANTONIA FRAZIER MDConsultant: Kelli Mcmanus NP 05/29/2019 01:24:00 PM EST - 05/29/2019 04:17:00 PM EST [facility] Patient discharged. Immunizations Vaccine Date Status Description Data Source(s) IIV3. This is one of two codes replacing CVX 15, which is being retired. 03/13/2020 12:00:00 AM EDT completed influenza vaccine, inactivated [facility] IIV3. This is one of two codes replacing CVX 15, which is being retired. 03/13/2020 12:00:00 AM EDT completed influenza vaccine, inactivated [facility] IIV3. This is one of two codes replacing CVX 15, which is being retired. 03/13/2020 12:00:00 AM EDT completed influenza vaccine, inactivated [facility] IIV3. This is one of two codes replacing CVX 15, which is being retired. 03/13/2020 12:00:00 AM EDT completed influenza vaccine, inactivated [facility] IIV3. This is one of two codes replacing CVX 15, which is being retired. 03/13/2020 12:00:00 AM EDT completed influenza vaccine, inactivated [facility] IIV3. This is one of two codes replacing CVX 15, which is being retired. 03/13/2020 12:00:00 AM EDT completed influenza vaccine, [facility] Medications Medication Brand Name Start Date Product Form Dose Route Admi nistrative Instructions Pharmacy Instructions Status Indications Reaction Description Data Source(s) Levofloxacin 750 MG Oral Tablet Levofloxacin 06/30/2020 04:59:10 PM EST 750 MG active [facility] Metronidazole 500 MG Oral Tablet Metronidazole (Flagyl ) 500 mg tablet Metronidazole (Flagyl) 500 mg tablet 06/30/2020 04:59:10 PM EST 500 MG active [facility] 875-125 mg 06/29/2020 12:00:00 AM EST tablet 20 TAKE ONE TABLET BY MOUTH TWICE A DAY FOR 10 DAYS TAKE ONE TABLET BY MOUTH TWICE A DAY FOR 10 DAYS SOLD: 06/29/2020 [facility] Amoxicillin 875 MG / Clavulanate 125 MG Oral Tablet Am oxicillin-Pot Clavulanate Amoxicillin-Pot Clavulanate 06/21/2020 09:36:59 AM EST 1 TAB active [facility] Amoxicillin 875 MG / Clavulanate 125 MG Oral Tablet Am oxicillin-Pot Clavulanate Amoxicillin-Pot Clavulanate 06/21/2020 09:36:59 AM EST 1 TAB completed [facility] Testosterone Cypionate 06/04/2020 02:26:38 PM EST 200 MG active [facility] Testosterone Cypionate 06/04/2020 02:26:38 PM EST 200 MG active [facility] Clonazepam 0.5 MG Oral Tablet Clonazepam 06/04/2020 02:26:33 PM EST 0.5 MG active [facility] Clonazepam 0.5 MG Oral Tablet Clonazepam 06/04/2020 02:26:33 PM EST 0.5 MG active [facility] olanzapine 10 MG Oral Tablet Olanzapine Olanzapine 06/04/2020 01: 20:44 PM EST 20 MG active [facility] olanzapine 10 MG Oral Tablet Olanzapine Olanzapine 06/04/2020 01: 20:44 PM EST 20 MG active [facility] olanzapine 10 MG Oral Tablet Olanzapine Olanzapine 06/04/2020 01: 20:44 PM EST 20 MG active [facility] Clonazepam 0.5 MG Oral Tablet Clonazepam 05/07/2020 01:11:14 PM EST 0.5 MG completed [facility] Clonazepam 0.5 MG Oral Tablet Clonazepam 05/07/2020 01:11:14 PM EST 0.5 MG completed [facility] Clonazepam 0.5 MG Oral Tablet Clonazepam 05/07/2020 01:11:14 PM EST 0.5 MG active [facility] Testosterone Cypionate 05/07/2020 01:04:59 PM EST 200 MG completed [facility] Testosterone Cypionate 05/07/2020 01:04:59 PM EST 200 MG completed [facility] Testosterone Cypionate 05/07/2020 01:04:59 PM EST 200 MG active [facility] Sertraline 100 MG Oral Tablet Sertraline 05/07/2020 11:19:59 AM EST 100 MG active [facility] Sertraline 100 MG Oral Tablet Sertraline 05/07/2020 11:19:59 AM EST 100 MG active [facility] Sertraline 100 MG Oral Tablet Sertraline 05/07/2020 11:19:59 AM EST 100 MG active [facility] Sertraline 100 MG Oral Tablet Sertraline 05/07/2020 11:19:59 AM EST 100 MG active [facility] Sertraline 50 MG Oral Tablet Sertraline 05/07/2020 11:19:08 AM EST 50 MG active [facility] Sertraline 50 MG Oral Tablet Sertraline 05/07/2020 11:19:08 AM EST 50 MG active [facility] Sertraline 50 MG Oral Tablet Sertraline 05/07/2020 11:19:08 AM EST 50 MG active [facility] Sertraline 50 MG Oral Tablet Sertraline 05/07/2020 11:19:08 AM EST 50 MG active [facility] olanzapine 10 MG Oral Tablet Olanzapine Olanzapine 05/07/2020 11: 17:30 AM EST 10 MG active [facility] olanzapine 10 MG Oral Tablet Olanzapine Olanzapine 05/07/2020 11: 17:30 AM EST 10 MG completed [facility] olanzapine 10 MG Oral Tablet Olanzapine Olanzapine 05/07/2020 11: 17:30 AM EST 10 MG completed [facility] olanzapine 10 MG Oral Tablet Olanzapine Olanzapine 05/07/2020 11: 17:30 AM EST 10 MG completed [facility] Testosterone Cypionate 04/11/2020 09:46:30 AM EST 200 MG completed [facility] Testosterone Cypionate 04/11/2020 09:46:30 AM EST 200 MG completed [facility] Testosterone Cypionate 04/11/2020 09:46:30 AM EST 200 MG completed [facility] Testosterone Cypionate 04/11/2020 09:46:30 AM EST 200 MG active [facility] Testosterone Cypionate 04/11/2020 09:46:30 AM EST 200 MG active [facility] Syringe (Disposable) (Bd Luer-Yanira Tip Control Syring) 10 mL syringe 04/11/2020 09:46:20 AM EST 1 EACH active [facility] Syringe (Disposable) (Bd Luer-Yanira Tip Control Syring) 10 mL syringe 04/11/2020 09:46:20 AM EST 1 EACH active [facility] Syringe (Disposable) (Bd Luer-Yanira Tip Control Syring) 10 mL syringe 04/11/2020 09:46:20 AM EST 1 EACH active [facility] Syringe (Disposable) (Bd Luer-Yanira Tip Control Syring) 10 mL syringe 04/11/2020 09:46:20 AM EST 1 EACH completed [facility] Syringe (Disposable) (Bd Luer-Yanira Tip Control Syring) 10 mL syringe 04/11/2020 09:46:20 AM EST 1 EACH active [facility] Clonazepam 0.5 MG Oral Tablet Clonazepam 04/11/2020 09:33:55 AM EST 0.5 MG active [facility] Clonazepam 0.5 MG Oral Tablet Clonazepam 04/11/2020 09:33:55 AM EST 0.5 MG completed [facility] Clonazepam 0.5 MG Oral Tablet Clonazepam 04/11/2020 09:33:55 AM EST 0.5 MG active [facility] Clonazepam 0.5 MG Oral Tablet Clonazepam 04/11/2020 09:33:55 AM EST 0.5 MG completed [facility] Clonazepam 0.5 MG Oral Tablet Clonazepam 04/11/2020 09:33:55 AM EST 0.5 MG completed [facility] Testosterone Cypionate 04/04/2020 10:27:13 AM EST 200 MG active [facility] Testosterone Cypionate 04/04/2020 10:27:13 AM EST 200 MG completed [facility] Testosterone Cypionate 04/04/2020 10:27:13 AM EST 200 MG completed [facility] Testosterone Cypionate 04/04/2020 10:27:13 AM EST 200 MG completed [facility] Testosterone Cypionate 04/04/2020 10:27:13 AM EST 200 MG completed [facility] Testosterone Cypionate 04/04/2020 10:27:13 AM EST 200 MG completed [facility] Sertraline 100 MG Oral Tablet Sertraline 04/04/2020 10:24:47 AM EST 100 MG completed [facility] Sertraline 100 MG Oral Tablet Sertraline 04/04/2020 10:24:47 AM EST 100 MG active [facility] Sertraline 100 MG Oral Tablet Sertraline 04/04/2020 10:24:47 AM EST 100 MG completed [facility] Sertraline 100 MG Oral Tablet Sertraline 04/04/2020 10:24:47 AM EST 100 MG completed [facility] Sertraline 100 MG Oral Tablet Sertraline 04/04/2020 10:24:47 AM EST 100 MG completed [facility] Sertraline 100 MG Oral Tablet Sertraline 04/04/2020 10:24:47 AM EST 100 MG active [facility] Alprazolam 0.5 MG Oral Tablet Alprazolam 03/18/2020 03:36:09 PM EDT 0.5 MG completed [facility] Alprazolam 0.5 MG Oral Tablet Alprazolam 03/18/2020 03:36:09 PM EDT 0.5 MG completed [facility] Alprazolam 0.5 MG Oral Tablet Alprazolam 03/18/2020 03:36:09 PM EDT 0.5 MG completed [facility] Alprazolam 0.5 MG Oral Tablet Alprazolam 03/18/2020 03:36:09 PM EDT 0.5 MG active [facility] Alprazolam 0.5 MG Oral Tablet Alprazolam 03/18/2020 03:36:09 PM EDT 0.5 MG completed [facility] Alprazolam 0.5 MG Oral Tablet Alprazolam 03/18/2020 03:36:09 PM EDT 0.5 MG completed [facility] Alprazolam 0.5 MG Oral Tablet Alprazolam 03/18/2020 03:24:41 PM EDT 0.5 MG completed [facility] Alprazolam 0.5 MG Oral Tablet Alprazolam 03/18/2020 03:24:41 PM EDT 0.5 MG completed [facility] Alprazolam 0.5 MG Oral Tablet Alprazolam 03/18/2020 03:24:41 PM EDT 0.5 MG completed [facility] Alprazolam 0.5 MG Oral Tablet Alprazolam 03/18/2020 03:24:41 PM EDT 0.5 MG completed [facility] Alprazolam 0.5 MG Oral Tablet Alprazolam 03/18/2020 03:24:41 PM EDT 0.5 MG completed [facility] Alprazolam 0.5 MG Oral Tablet Alprazolam 03/18/2020 03:24:41 PM EDT 0.5 MG completed [facility] Prazosin 1 MG Oral Capsule Prazosin 03/18/2020 03:23:46 PM EDT 1 MG active [facility] Prazosin 1 MG Oral Capsule Prazosin 03/18/2020 03:23:46 PM EDT 1 MG active [facility] Prazosin 1 MG Oral Capsule Prazosin 03/18/2020 03:23:46 PM EDT 1 MG active [facility] Prazosin 1 MG Oral Capsule Prazosin 03/18/2020 03:23:46 PM EDT 1 MG active [facility] Prazosin 1 MG Oral Capsule Prazosin 03/18/2020 03:23:46 PM EDT 1 MG active [facility] Prazosin 1 MG Oral Capsule Prazosin 03/18/2020 03:23:46 PM EDT 1 MG active [facility] Sertraline 50 MG Oral Tablet Sertraline 03/13/2020 10:50:28 AM EDT 50 MG completed [facility] Sertraline 50 MG Oral Tablet Sertraline 03/13/2020 10:50:28 AM EDT 50 MG completed [facility] Sertraline 50 MG Oral Tablet Sertraline 03/13/2020 10:50:28 AM EDT 50 MG completed [facility] Sertraline 50 MG Oral Tablet Sertraline 03/13/2020 10:50:28 AM EDT 50 MG completed [facility] Sertraline 50 MG Oral Tablet Sertraline 03/13/2020 10:50:28 AM EDT 50 MG completed [facility] Sertraline 50 MG Oral Tablet Sertraline 03/13/2020 10:50:28 AM EDT 50 MG completed [facility] Prazosin 1 MG Oral Capsule Prazosin 03/13/2020 10:50:09 AM EDT 1 MG completed [facility] Prazosin 1 MG Oral Capsule Prazosin 03/13/2020 10:50:09 AM EDT 1 MG completed [facility] Prazosin 1 MG Oral Capsule Prazosin 03/13/2020 10:50:09 AM EDT 1 MG completed [facility] Prazosin 1 MG Oral Capsule Prazosin 03/13/2020 10:50:09 AM EDT 1 MG completed [facility] Prazosin 1 MG Oral Capsule Prazosin 03/13/2020 10:50:09 AM EDT 1 MG completed [facility] Prazosin 1 MG Oral Capsule Prazosin 03/13/2020 10:50:09 AM EDT 1 MG completed [facility] olanzapine 10 MG Oral Tablet Olanzapine Olanzapine 03/13/2020 10: 49:50 AM EDT 20 MG completed [facility] olanzapine 10 MG Oral Tablet Olanzapine Olanzapine 03/13/2020 10: 49:50 AM EDT 20 MG active [facility] olanzapine 10 MG Oral Tablet Olanzapine Olanzapine 03/13/2020 10: 49:50 AM EDT 20 MG completed [facility] olanzapine 10 MG Oral Tablet Olanzapine Olanzapine 03/13/2020 10: 49:50 AM EDT 20 MG active [facility] olanzapine 10 MG Oral Tablet Olanzapine Olanzapine 03/13/2020 10: 49:50 AM EDT 20 MG completed [facility] olanzapine 10 MG Oral Tablet Olanzapine Olanzapine 03/13/2020 10: 49:50 AM EDT 20 MG completed [facility] Divalproex Sodium 500 MG Delayed Release Oral Tablet Divalpr oex 03/13/2020 10:49:22 AM EDT 500 MG active [facility] Divalproex Sodium 500 MG Delayed Release Oral Tablet Divalpr oex 03/13/2020 10:49:22 AM EDT 500 MG active [facility] Divalproex Sodium 500 MG Delayed Release Oral Tablet Divalpr oex 03/13/2020 10:49:22 AM EDT 500 MG active [facility] Divalproex Sodium 500 MG Delayed Release Oral Tablet Divalpr oex 03/13/2020 10:49:22 AM EDT 500 MG active [facility] Divalproex Sodium 500 MG Delayed Release Oral Tablet Divalpr oex 03/13/2020 10:49:22 AM EDT 500 MG active [facility] Divalproex Sodium 500 MG Delayed Release Oral Tablet Divalpr oex 03/13/2020 10:49:22 AM EDT 500 MG active [facility] Divalproex Sodium 500 MG Delayed Release Oral Tablet Divalpr oex 03/13/2020 10:06:36 AM EDT 500 MG completed [facility] Divalproex Sodium 500 MG Delayed Release Oral Tablet Divalpr oex 03/13/2020 10:06:36 AM EDT 500 MG completed [facility] Divalproex Sodium 500 MG Delayed Release Oral Tablet Divalpr oex 03/13/2020 10:06:36 AM EDT 500 MG completed [facility] Divalproex Sodium 500 MG Delayed Release Oral Tablet Divalpr oex 03/13/2020 10:06:36 AM EDT 500 MG completed [facility] Divalproex Sodium 500 MG Delayed Release Oral Tablet Divalpr oex 03/13/2020 10:06:36 AM EDT 500 MG completed [facility] Divalproex Sodium 500 MG Delayed Release Oral Tablet Divalpr oex 03/13/2020 10:06:36 AM EDT 500 MG completed [facility] Divalproex Sodium 500 MG Delayed Release Oral Tablet Divalpr oex 03/13/2020 10:06:36 AM EDT 500 MG completed [facility] Prazosin 1 MG Oral Capsule Prazosin 03/13/2020 10:06:14 AM EDT completed [facility] Prazosin 1 MG Oral Capsule Prazosin 03/13/2020 10:06:14 AM EDT completed [facility] Prazosin 1 MG Oral Capsule Prazosin 03/13/2020 10:06:14 AM EDT completed [facility] Prazosin 1 MG Oral Capsule Prazosin 03/13/2020 10:06:14 AM EDT completed [facility] Prazosin 1 MG Oral Capsule Prazosin 03/13/2020 10:06:14 AM EDT completed [facility] Prazosin 1 MG Oral Capsule Prazosin 03/13/2020 10:06:14 AM EDT completed [facility] Prazosin 1 MG Oral Capsule Prazosin 03/13/2020 10:06:14 AM EDT completed [facility] olanzapine 10 MG Oral Tablet Olanzapine Olanzapine 03/13/2020 10: 06:01 AM EDT completed [facility] olanzapine 10 MG Oral Tablet Olanzapine Olanzapine 03/13/2020 10: 06:01 AM EDT completed [facility] olanzapine 10 MG Oral Tablet Olanzapine Olanzapine 03/13/2020 10: 06:01 AM EDT completed [facility] olanzapine 10 MG Oral Tablet Olanzapine Olanzapine 03/13/2020 10: 06:01 AM EDT completed [facility] olanzapine 10 MG Oral Tablet Olanzapine Olanzapine 03/13/2020 10: 06:01 AM EDT completed [facility] olanzapine 10 MG Oral Tablet Olanzapine Olanzapine 03/13/2020 10: 06:01 AM EDT completed [facility] olanzapine 10 MG Oral Tablet Olanzapine Olanzapine 03/13/2020 10: 06:01 AM EDT completed [facility] Sertraline 50 MG Oral Tablet Sertraline 03/13/2020 10:05:33 AM EDT completed [facility] Sertraline 50 MG Oral Tablet Sertraline 03/13/2020 10:05:33 AM EDT completed [facility] Sertraline 50 MG Oral Tablet Sertraline 03/13/2020 10:05:33 AM EDT completed [facility] Sertraline 50 MG Oral Tablet Sertraline 03/13/2020 10:05:33 AM EDT completed [facility] Sertraline 50 MG Oral Tablet Sertraline 03/13/2020 10:05:33 AM EDT completed [facility] Sertraline 50 MG Oral Tablet Sertraline 03/13/2020 10:05:33 AM EDT completed [facility] Sertraline 50 MG Oral Tablet Sertraline 03/13/2020 10:05:33 AM EDT completed [facility] Qd (3yr up)(PF) (flu vac [id number] 36mos up(P F)) 03/13/2020 09:54:44 AM EDT 60 MCG [facility] (flu vac [id number] 36mos up(P F)) 03/13/2020 09:54:44 AM EDT 60 MCG [facility] (flu vac [id number] 36mos up(P F)) 03/13/2020 09:54:44 AM EDT 60 MCG completed [facility] Afluria Qd (3yr up)(PF) (flu vac [id number] 36mos up(P F)) 03/13/2020 09:54:44 AM EDT 60 MCG completed [facility] Afluria Qd (3yr up)(PF) (flu vac [id number] 36mos up(P F)) 03/13/2020 09:54:44 AM EDT 60 MCG completed [facility] Qd 2019-(3yr up)(PF) (flu vac [id number] 36mos up(P F)) 03/13/2020 09:54:44 AM EDT 60 MCG [facility] (flu vac [id number] 36mos up(P F)) 03/13/2020 09:54:44 AM EDT 60 MCG completed [facility] Testosterone Cypionate 02/27/2020 04:07:34 PM EDT 300 MG completed [facility] Testosterone Cypionate 02/27/2020 04:07:34 PM EDT 300 MG completed [facility] Testosterone Cypionate 02/27/2020 04:07:34 PM EDT 300 MG completed [facility] l Testosterone Cypionate 02/27/2020 04:07:34 PM EDT 300 MG completed [facility] l Testosterone Cypionate 02/27/2020 04:07:34 PM EDT 300 MG active [facility] Testosterone Cypionate 02/27/2020 04:07:34 PM EDT 300 MG completed [facility] Testosterone Cypionate 02/27/2020 04:07:34 PM EDT 300 MG completed [facility] Alprazolam 0.5 MG Oral Tablet Alprazolam 02/21/2020 08:22:10 AM EDT 0.5 MG completed [facility] Alprazolam 0.5 MG Oral Tablet Alprazolam 02/21/2020 08:22:10 AM EDT 0.5 MG active [facility] Alprazolam 0.5 MG Oral Tablet Alprazolam 02/21/2020 08:22:10 AM EDT 0.5 MG completed [facility] Alprazolam 0.5 MG Oral Tablet Alprazolam 02/21/2020 08:22:10 AM EDT 0.5 MG completed [facility] Alprazolam 0.5 MG Oral Tablet Alprazolam 02/21/2020 08:22:10 AM EDT 0.5 MG completed [facility] Alprazolam 0.5 MG Oral Tablet Alprazolam 02/21/2020 08:22:10 AM EDT 0.5 MG completed [facility] Alprazolam 0.5 MG Oral Tablet Alprazolam 02/21/2020 08:22:10 AM EDT 0.5 MG completed [facility] Syringe (Disposable) (Bd Luer-Yanira Tip Control Syring) 10 mL syringe 02/06/2020 10:06:04 AM EDT 1 EACH completed [facility] Syringe (Disposable) (Bd Luer-Yanira Tip Control Syring) 10 mL syringe 02/06/2020 10:06:04 AM EDT 1 EACH active [facility] Syringe (Disposable) (Bd Luer-Yanira Tip Control Syring) 10 mL syringe 02/06/2020 10:06:04 AM EDT 1 EACH completed [facility] Syringe (Disposable) (Bd Luer-Yanira Tip Control Syring) 10 mL syringe 02/06/2020 10:06:04 AM EDT 1 EACH completed [facility] Syringe (Disposable) (Bd Luer-Yanira Tip Control Syring) 10 mL syringe 02/06/2020 10:06:04 AM EDT 1 EACH active [facility] Syringe (Disposable) (Bd Luer-Yanira Tip Control Syring) 10 mL syringe 02/06/2020 10:06:04 AM EDT 1 EACH completed [facility] Syringe (Disposable) (Bd Luer-Yanira Tip Control Syring) 10 mL syringe 02/06/2020 10:06:04 AM EDT 1 EACH completed [facility] Citalopram 20 MG Oral Tablet Citalopram 02/06/2020 10:05:46 AM EDT 40 MG completed [facility] Citalopram 20 MG Oral Tablet Citalopram 02/06/2020 10:05:46 AM EDT 40 MG completed [facility] Citalopram 20 MG Oral Tablet Citalopram 02/06/2020 10:05:46 AM EDT 40 MG completed [facility] Citalopram 20 MG Oral Tablet Citalopram 02/06/2020 10:05:46 AM EDT 40 MG completed [facility] Citalopram 20 MG Oral Tablet Citalopram 02/06/2020 10:05:46 AM EDT 40 MG completed [facility] Citalopram 20 MG Oral Tablet Citalopram 02/06/2020 10:05:46 AM EDT 40 MG completed [facility] Citalopram 20 MG Oral Tablet Citalopram 02/06/2020 10:05:46 AM EDT 40 MG completed [facility] Testosterone Cypionate 02/06/2020 10:04:59 AM EDT 300 MG completed [facility] Testosterone Cypionate 02/06/2020 10:04:59 AM EDT 300 MG completed [facility] Testosterone Cypionate 02/06/2020 10:04:59 AM EDT 300 MG completed [facility] Testosterone Cypionate 02/06/2020 10:04:59 AM EDT 300 MG completed [facility] Testosterone Cypionate 02/06/2020 10:04:59 AM EDT 300 MG completed [facility] Testosterone Cypionate 02/06/2020 10:04:59 AM EDT 300 MG completed [facility] Testosterone Cypionate 02/06/2020 10:04:59 AM EDT 300 MG completed [facility] Divalproex Sodium 500 MG Delayed Release Oral Tablet Divalpr oex 01/25/2020 09:51:24 AM EDT 500 MG completed [facility] Divalproex Sodium 500 MG Delayed Release Oral Tablet Divalpr oex 01/25/2020 09:51:24 AM EDT 500 MG completed [facility] Divalproex Sodium 500 MG Delayed Release Oral Tablet Divalpr oex 01/25/2020 09:51:24 AM EDT 500 MG active [facility] Divalproex Sodium 500 MG Delayed Release Oral Tablet Divalpr oex 01/25/2020 09:51:24 AM EDT 500 MG active [facility] Divalproex Sodium 500 MG Delayed Release Oral Tablet Divalpr oex 01/25/2020 09:51:24 AM EDT 500 MG completed [facility] Divalproex Sodium 500 MG Delayed Release Oral Tablet Divalpr oex 01/25/2020 09:51:24 AM EDT 500 MG completed [facility] Divalproex Sodium 500 MG Delayed Release Oral Tablet Divalpr oex 01/25/2020 09:51:24 AM EDT 500 MG completed [facility] Divalproex Sodium 500 MG Delayed Release Oral Tablet Divalpr oex 01/25/2020 09:51:24 AM EDT 500 MG completed [facility] Divalproex Sodium 500 MG Delayed Release Oral Tablet Divalpr oex 01/25/2020 09:51:24 AM EDT 500 MG completed [facility] Divalproex Sodium 500 MG Delayed Release Oral Tablet Divalpr oex 01/25/2020 09:48:58 AM EDT 500 MG completed [facility] Divalproex Sodium 500 MG Delayed Release Oral Tablet Divalpr oex 01/25/2020 09:48:58 AM EDT 500 MG completed [facility] Divalproex Sodium 500 MG Delayed Release Oral Tablet Divalpr oex 01/25/2020 09:48:58 AM EDT 500 MG completed [facility] Divalproex Sodium 500 MG Delayed Release Oral Tablet Divalpr oex 01/25/2020 09:48:58 AM EDT 500 MG completed [facility] Divalproex Sodium 500 MG Delayed Release Oral Tablet Divalpr oex 01/25/2020 09:48:58 AM EDT 500 MG completed [facility] Divalproex Sodium 500 MG Delayed Release Oral Tablet Divalpr oex 01/25/2020 09:48:58 AM EDT 500 MG completed [facility] Divalproex Sodium 500 MG Delayed Release Oral Tablet Divalpr oex 01/25/2020 09:48:58 AM EDT 500 MG completed [facility] Divalproex Sodium 500 MG Delayed Release Oral Tablet Divalpr oex 01/25/2020 09:48:58 AM EDT 500 MG completed [facility] Divalproex Sodium 500 MG Delayed Release Oral Tablet Divalpr oex 01/25/2020 09:48:58 AM EDT 500 MG completed [facility] Testosterone Cypionate 01/24/2020 07:27:26 AM EDT 300 MG completed [facility] Testosterone Cypionate 01/24/2020 07:27:26 AM EDT 300 MG active [facility] Testosterone Cypionate 01/24/2020 07:27:26 AM EDT 300 MG completed [facility] Testosterone Cypionate 01/24/2020 07:27:26 AM EDT 300 MG completed [facility] Testosterone Cypionate 01/24/2020 07:27:26 AM EDT 300 MG completed [facility] Testosterone Cypionate 01/24/2020 07:27:26 AM EDT 300 MG completed [facility] Testosterone Cypionate 01/24/2020 07:27:26 AM EDT 300 MG completed [facility] Testosterone Cypionate 01/24/2020 07:27:26 AM EDT 300 MG completed [facility] Testosterone Cypionate 01/24/2020 07:27:26 AM EDT 300 MG completed [facility] Syringe (Disposable) (Bd Luer-Yanira Tip Control Syring) 10 mL syringe 01/24/2020 07:27:18 AM EDT 1 EACH completed [facility] Syringe (Disposable) (Bd Luer-Yanira Tip Control Syring) 10 mL syringe 01/24/2020 07:27:18 AM EDT 1 EACH completed [facility] Syringe (Disposable) (Bd Luer-Yanira Tip Control Syring) 10 mL syringe 01/24/2020 07:27:18 AM EDT 1 EACH completed [facility] Syringe (Disposable) (Bd Luer-Yanira Tip Control Syring) 10 mL syringe 01/24/2020 07:27:18 AM EDT 1 EACH completed [facility] Syringe (Disposable) (Bd Luer-Yanira Tip Control Syring) 10 mL syringe 01/24/2020 07:27:18 AM EDT 1 EACH completed [facility] Syringe (Disposable) (Bd Luer-Yanira Tip Control Syring) 10 mL syringe 01/24/2020 07:27:18 AM EDT 1 EACH active [facility] Syringe (Disposable) (Bd Luer-Yanira Tip Control Syring) 10 mL syringe 01/24/2020 07:27:18 AM EDT 1 EACH completed [facility] Syringe (Disposable) (Bd Luer-Yanira Tip Control Syring) 10 mL syringe 01/24/2020 07:27:18 AM EDT 1 EACH active [facility] Syringe (Disposable) (Bd Luer-Yanira Tip Control Syring) 10 mL syringe 01/24/2020 07:27:18 AM EDT 1 EACH completed [facility] Alprazolam 0.5 MG Oral Tablet Alprazolam 01/23/2020 04:11:06 PM EDT 0.5 MG completed [facility] Alprazolam 0.5 MG Oral Tablet Alprazolam 01/23/2020 04:11:06 PM EDT 0.5 MG active [facility] Alprazolam 0.5 MG Oral Tablet Alprazolam 01/23/2020 04:11:06 PM EDT 0.5 MG completed [facility] Alprazolam 0.5 MG Oral Tablet Alprazolam 01/23/2020 04:11:06 PM EDT 0.5 MG completed [facility] Alprazolam 0.5 MG Oral Tablet Alprazolam 01/23/2020 04:11:06 PM EDT 0.5 MG active [facility] Alprazolam 0.5 MG Oral Tablet Alprazolam 01/23/2020 04:11:06 PM EDT 0.5 MG completed [facility] Alprazolam 0.5 MG Oral Tablet Alprazolam 01/23/2020 04:11:06 PM EDT 0.5 MG completed [facility] Alprazolam 0.5 MG Oral Tablet Alprazolam 01/23/2020 04:11:06 PM EDT 0.5 MG completed [facility] Alprazolam 0.5 MG Oral Tablet Alprazolam 01/23/2020 04:11:06 PM EDT 0.5 MG completed [facility] Lisinopril 40 MG Oral Tablet Lisinopril 01/22/2020 08:50:17 AM EDT 40 MG active [facility] Lisinopril 40 MG Oral Tablet Lisinopril 01/22/2020 08:50:17 AM EDT 40 MG active [facility] Lisinopril 40 MG Oral Tablet Lisinopril 01/22/2020 08:50:17 AM EDT 40 MG active [facility] Lisinopril 40 MG Oral Tablet Lisinopril 01/22/2020 08:50:17 AM EDT 40 MG active [facility] Lisinopril 40 MG Oral Tablet Lisinopril 01/22/2020 08:50:17 AM EDT 40 MG active [facility] Lisinopril 40 MG Oral Tablet Lisinopril 01/22/2020 08:50:17 AM EDT 40 MG active [facility] Lisinopril 40 MG Oral Tablet Lisinopril 01/22/2020 08:50:17 AM EDT 40 MG active [facility] Lisinopril 40 MG Oral Tablet Lisinopril 01/22/2020 08:50:17 AM EDT 40 MG active [facility] Lisinopril 40 MG Oral Tablet Lisinopril 01/22/2020 08:50:17 AM EDT 40 MG active [facility] Citalopram 20 MG Oral Tablet Citalopram 01/22/2020 08:50:13 AM EDT 40 MG active [facility] Citalopram 20 MG Oral Tablet Citalopram 01/22/2020 08:50:13 AM EDT 40 MG completed [facility] Citalopram 20 MG Oral Tablet Citalopram 01/22/2020 08:50:13 AM EDT 40 MG completed [facility] Citalopram 20 MG Oral Tablet Citalopram 01/22/2020 08:50:13 AM EDT 40 MG completed [facility] Citalopram 20 MG Oral Tablet Citalopram 01/22/2020 08:50:13 AM EDT 40 MG completed [facility] Citalopram 20 MG Oral Tablet Citalopram 01/22/2020 08:50:13 AM EDT 40 MG active [facility] Citalopram 20 MG Oral Tablet Citalopram 01/22/2020 08:50:13 AM EDT 40 MG completed [facility] Citalopram 20 MG Oral Tablet Citalopram 01/22/2020 08:50:13 AM EDT 40 MG completed [facility] Citalopram 20 MG Oral Tablet Citalopram 01/22/2020 08:50:13 AM EDT 40 MG completed [facility] Alprazolam 0.5 MG Oral Tablet Alprazolam 12/29/2019 07:41:20 AM EDT 0.5 MG completed [facility] Alprazolam 0.5 MG Oral Tablet Alprazolam 12/29/2019 07:41:20 AM EDT 0.5 MG completed [facility] Alprazolam 0.5 MG Oral Tablet Alprazolam 12/29/2019 07:41:20 AM EDT 0.5 MG completed [facility] Alprazolam 0.5 MG Oral Tablet Alprazolam 12/29/2019 07:41:20 AM EDT 0.5 MG completed [facility] Alprazolam 0.5 MG Oral Tablet Alprazolam 12/29/2019 07:41:20 AM EDT 0.5 MG completed [facility] Alprazolam 0.5 MG Oral Tablet Alprazolam 12/29/2019 07:41:20 AM EDT 0.5 MG completed [facility] Alprazolam 0.5 MG Oral Tablet Alprazolam 12/29/2019 07:41:20 AM EDT 0.5 MG completed [facility] Alprazolam 0.5 MG Oral Tablet Alprazolam 12/29/2019 07:41:20 AM EDT 0.5 MG completed [facility] Alprazolam 0.5 MG Oral Tablet Alprazolam 12/29/2019 07:41:20 AM EDT 0.5 MG completed [facility] Fluticasone Propionate (Flonase Allergy Relief) 50 mcg/actuation spray,suspension 12/20/2019 10:26:51 AM EDT 2 SPRAY active [facility] Fluticasone Propionate (Flonase Allergy Relief) 50 mcg/actuation spray,suspension 12/20/2019 10:26:51 AM EDT 2 SPRAY completed [facility] Fluticasone Propionate (Flonase Allergy Relief) 50 mcg/actuation spray,suspension 12/20/2019 10:26:51 AM EDT 2 SPRAY completed [facility] Fluticasone Propionate (Flonase Allergy Relief) 50 mcg/actuation spray,suspension 12/20/2019 10:26:51 AM EDT 2 SPRAY completed [facility] Fluticasone Propionate (Flonase Allergy Relief) 50 mcg/actuation spray,suspension 12/20/2019 10:26:51 AM EDT 2 SPRAY active [facility] Fluticasone Propionate (Flonase Allergy Relief) 50 mcg/actuation spray,suspension 12/20/2019 10:26:51 AM EDT 2 SPRAY completed [facility] Fluticasone Propionate (Flonase Allergy Relief) 50 mcg/actuation spray,suspension 12/20/2019 10:26:51 AM EDT 2 SPRAY completed [facility] Fluticasone Propionate (Flonase Allergy Relief) 50 mcg/actuation spray,suspension 12/20/2019 10:26:51 AM EDT 2 SPRAY completed [facility] Fluticasone Propionate (Flonase Allergy Relief) 50 mcg/actuation spray,suspension 12/20/2019 10:26:51 AM EDT 2 SPRAY completed [facility] Fluticasone Propionate (Flonase Allergy Relief) 50 mcg/actuation spray,suspension 12/20/2019 10:26:51 AM EDT 2 SPRAY completed [facility] Syringe (Disposable) (Bd Luer-Yanira Tip Control Syring) 10 mL syringe 11/29/2019 08:46:58 AM EDT 1 EACH completed [facility] Syringe (Disposable) (Bd Luer-Yanira Tip Control Syring) 10 mL syringe 11/29/2019 08:46:58 AM EDT 1 EACH completed [facility] Syringe (Disposable) (Bd Luer-Yanira Tip Control Syring) 10 mL syringe 11/29/2019 08:46:58 AM EDT 1 EACH completed [facility] Syringe (Disposable) (Bd Luer-Yanira Tip Control Syring) 10 mL syringe 11/29/2019 08:46:58 AM EDT 1 EACH completed [facility] Syringe (Disposable) (Bd Luer-Yanira Tip Control Syring) 10 mL syringe 11/29/2019 08:46:58 AM EDT 1 EACH completed [facility] Syringe (Disposable) (Bd Luer-Yanira Tip Control Syring) 10 mL syringe 11/29/2019 08:46:58 AM EDT 1 EACH completed [facility] Syringe (Disposable) (Bd Luer-Yanira Tip Control Syring) 10 mL syringe 11/29/2019 08:46:58 AM EDT 1 EACH completed [facility] Syringe (Disposable) (Bd Luer-Yanira Tip Control Syring) 10 mL syringe 11/29/2019 08:46:58 AM EDT 1 EACH active [facility] Syringe (Disposable) (Bd Luer-Yanira Tip Control Syring) 10 mL syringe 11/29/2019 08:46:58 AM EDT 1 EACH completed [facility] Syringe (Disposable) (Bd Luer-Yanira Tip Control Syring) 10 mL syringe 11/29/2019 08:46:58 AM EDT 1 EACH completed [facility] meloxicam 7.5 MG Oral Tablet Meloxicam Meloxicam 11/29/2019 08:4 6:52 AM EDT 7.5 MG active [facility] meloxicam 7.5 MG Oral Tablet Meloxicam Meloxicam 11/29/2019 08:4 6:52 AM EDT 7.5 MG active [facility] meloxicam 7.5 MG Oral Tablet Meloxicam Meloxicam 11/29/2019 08:4 6:52 AM EDT 7.5 MG active [facility] meloxicam 7.5 MG Oral Tablet Meloxicam Meloxicam 11/29/2019 08:4 6:52 AM EDT 7.5 MG active [facility] meloxicam 7.5 MG Oral Tablet Meloxicam Meloxicam 11/29/2019 08:4 6:52 AM EDT 7.5 MG active [facility] meloxicam 7.5 MG Oral Tablet Meloxicam Meloxicam 11/29/2019 08:4 6:52 AM EDT 7.5 MG active [facility] meloxicam 7.5 MG Oral Tablet Meloxicam Meloxicam 11/29/2019 08:4 6:52 AM EDT 7.5 MG active [facility] meloxicam 7.5 MG Oral Tablet Meloxicam Meloxicam 11/29/2019 08:4 6:52 AM EDT 7.5 MG active [facility] meloxicam 7.5 MG Oral Tablet Meloxicam Meloxicam 11/29/2019 08:4 6:52 AM EDT 7.5 MG active [facility] meloxicam 7.5 MG Oral Tablet Meloxicam Meloxicam 11/29/2019 08:4 6:52 AM EDT 7.5 MG active [facility] Alprazolam 0.5 MG Oral Tablet Alprazolam 11/29/2019 08:45:38 AM EDT 0.5 MG completed [facility] Alprazolam 0.5 MG Oral Tablet Alprazolam 11/29/2019 08:45:38 AM EDT 0.5 MG completed [facility] Alprazolam 0.5 MG Oral Tablet Alprazolam 11/29/2019 08:45:38 AM EDT 0.5 MG completed [facility] Alprazolam 0.5 MG Oral Tablet Alprazolam 11/29/2019 08:45:38 AM EDT 0.5 MG completed [facility] Alprazolam 0.5 MG Oral Tablet Alprazolam 11/29/2019 08:45:38 AM EDT 0.5 MG completed [facility] Alprazolam 0.5 MG Oral Tablet Alprazolam 11/29/2019 08:45:38 AM EDT 0.5 MG completed [facility] Alprazolam 0.5 MG Oral Tablet Alprazolam 11/29/2019 08:45:38 AM EDT 0.5 MG completed [facility] Alprazolam 0.5 MG Oral Tablet Alprazolam 11/29/2019 08:45:38 AM EDT 0.5 MG completed [facility] Alprazolam 0.5 MG Oral Tablet Alprazolam 11/29/2019 08:45:38 AM EDT 0.5 MG completed [facility] Alprazolam 0.5 MG Oral Tablet Alprazolam 11/29/2019 08:45:38 AM EDT 0.5 MG active [facility] Testosterone Cypionate 11/29/2019 08:45:23 AM EDT 300 MG active [facility] Testosterone Cypionate 11/29/2019 08:45:23 AM EDT 300 MG completed [facility] Testosterone Cypionate 11/29/2019 08:45:23 AM EDT 300 MG completed [facility] Testosterone Cypionate 11/29/2019 08:45:23 AM EDT 300 MG completed [facility] Testosterone Cypionate 11/29/2019 08:45:23 AM EDT 300 MG completed [facility] Testosterone Cypionate 11/29/2019 08:45:23 AM EDT 300 MG completed [facility] Testosterone Cypionate 11/29/2019 08:45:23 AM EDT 300 MG completed [facility] Testosterone Cypionate 11/29/2019 08:45:23 AM EDT 300 MG completed [facility] Testosterone Cypionate 11/29/2019 08:45:23 AM EDT 300 MG completed [facility] Testosterone Cypionate 11/29/2019 08:45:23 AM EDT 300 MG completed [facility] Testosterone Cypionate 11/29/2019 08:34:48 AM EDT 300 MG completed [facility] Testosterone Cypionate 11/29/2019 08:34:48 AM EDT 300 MG completed [facility] Testosterone Cypionate 11/29/2019 08:34:48 AM EDT 300 MG completed [facility] Testosterone Cypionate 11/29/2019 08:34:48 AM EDT 300 MG completed [facility] Testosterone Cypionate 11/29/2019 08:34:48 AM EDT 300 MG completed [facility] Testosterone Cypionate 11/29/2019 08:34:48 AM EDT 300 MG completed [facility] Testosterone Cypionate 11/29/2019 08:34:48 AM EDT 300 MG completed [facility] Testosterone Cypionate 11/29/2019 08:34:48 AM EDT 300 MG completed [facility] Testosterone Cypionate 11/29/2019 08:34:48 AM EDT 300 MG completed [facility] Testosterone Cypionate 11/29/2019 08:34:48 AM EDT 300 MG completed [facility] Alprazolam 0.5 MG Oral Tablet Alprazolam 11/29/2019 08:34:44 AM EDT 0.5 MG completed [facility] Alprazolam 0.5 MG Oral Tablet Alprazolam 11/29/2019 08:34:44 AM EDT 0.5 MG completed [facility] Alprazolam 0.5 MG Oral Tablet Alprazolam 11/29/2019 08:34:44 AM EDT 0.5 MG completed [facility] Alprazolam 0.5 MG Oral Tablet Alprazolam 11/29/2019 08:34:44 AM EDT 0.5 MG completed [facility] Alprazolam 0.5 MG Oral Tablet Alprazolam 11/29/2019 08:34:44 AM EDT 0.5 MG completed [facility] Alprazolam 0.5 MG Oral Tablet Alprazolam 11/29/2019 08:34:44 AM EDT 0.5 MG completed [facility] Alprazolam 0.5 MG Oral Tablet Alprazolam 11/29/2019 08:34:44 AM EDT 0.5 MG completed [facility] Alprazolam 0.5 MG Oral Tablet Alprazolam 11/29/2019 08:34:44 AM EDT 0.5 MG completed [facility] Alprazolam 0.5 MG Oral Tablet Alprazolam 11/29/2019 08:34:44 AM EDT 0.5 MG completed [facility] Alprazolam 0.5 MG Oral Tablet Alprazolam 11/29/2019 08:34:44 AM EDT 0.5 MG completed [facility] Syringe (Disposable) (Bd Luer-Yanira Tip Control Syring) 10 mL syringe 11/29/2019 08:34:39 AM EDT 1 EACH completed [facility] Syringe (Disposable) (Bd Luer-Yanira Tip Control Syring) 10 mL syringe 11/29/2019 08:34:39 AM EDT 1 EACH completed [facility] Syringe (Disposable) (Bd Luer-Yanira Tip Control Syring) 10 mL syringe 11/29/2019 08:34:39 AM EDT 1 EACH completed [facility] Syringe (Disposable) (Bd Luer-Yanira Tip Control Syring) 10 mL syringe 11/29/2019 08:34:39 AM EDT 1 EACH completed [facility] Syringe (Disposable) (Bd Luer-Yanira Tip Control Syring) 10 mL syringe 11/29/2019 08:34:39 AM EDT 1 EACH completed [facility] Syringe (Disposable) (Bd Luer-Ynaira Tip Control Syring) 10 mL syringe 11/29/2019 08:34:39 AM EDT 1 EACH completed [facility] Syringe (Disposable) (Bd Luer-Yanira Tip Control Syring) 10 mL syringe 11/29/2019 08:34:39 AM EDT 1 EACH completed [facility] Syringe (Disposable) (Bd Luer-Yanira Tip Control Syring) 10 mL syringe 11/29/2019 08:34:39 AM EDT 1 EACH completed [facility] Syringe (Disposable) (Bd Luer-Yanira Tip Control Syring) 10 mL syringe 11/29/2019 08:34:39 AM EDT 1 EACH completed [facility] Syringe (Disposable) (Bd Luer-Yanira Tip Control Syring) 10 mL syringe 11/29/2019 08:34:39 AM EDT 1 EACH completed [facility] meloxicam 7.5 MG Oral Tablet Meloxicam Meloxicam 11/29/2019 08:1 6:51 AM EDT 7.5 MG completed [facility] meloxicam 7.5 MG Oral Tablet Meloxicam Meloxicam 11/29/2019 08:1 6:51 AM EDT 7.5 MG completed [facility] meloxicam 7.5 MG Oral Tablet Meloxicam Meloxicam 11/29/2019 08:1 6:51 AM EDT 7.5 MG completed [facility] meloxicam 7.5 MG Oral Tablet Meloxicam Meloxicam 11/29/2019 08:1 6:51 AM EDT 7.5 MG completed [facility] meloxicam 7.5 MG Oral Tablet Meloxicam Meloxicam 11/29/2019 08:1 6:51 AM EDT 7.5 MG completed [facility] meloxicam 7.5 MG Oral Tablet Meloxicam Meloxicam 11/29/2019 08:1 6:51 AM EDT 7.5 MG completed [facility] meloxicam 7.5 MG Oral Tablet Meloxicam Meloxicam 11/29/2019 08:1 6:51 AM EDT 7.5 MG completed [facility] meloxicam 7.5 MG Oral Tablet Meloxicam Meloxicam 11/29/2019 08:1 6:51 AM EDT 7.5 MG completed [facility] meloxicam 7.5 MG Oral Tablet Meloxicam Meloxicam 11/29/2019 08:1 6:51 AM EDT 7.5 MG completed [facility] meloxicam 7.5 MG Oral Tablet Meloxicam Meloxicam 11/29/2019 08:1 6:51 AM EDT 7.5 MG completed [facility] Citalopram 20 MG Oral Tablet Citalopram 11/13/2019 03:47:54 PM EDT 40 MG active [facility] Citalopram 20 MG Oral Tablet Citalopram 11/13/2019 03:47:54 PM EDT 40 MG completed [facility] Citalopram 20 MG Oral Tablet Citalopram 11/13/2019 03:47:54 PM EDT 40 MG completed [facility] Citalopram 20 MG Oral Tablet Citalopram 11/13/2019 03:47:54 PM EDT 40 MG completed [facility] Citalopram 20 MG Oral Tablet Citalopram 11/13/2019 03:47:54 PM EDT 40 MG completed [facility] Citalopram 20 MG Oral Tablet Citalopram 11/13/2019 03:47:54 PM EDT 40 MG completed [facility] Citalopram 20 MG Oral Tablet Citalopram 11/13/2019 03:47:54 PM EDT 40 MG completed [facility] Citalopram 20 MG Oral Tablet Citalopram 11/13/2019 03:47:54 PM EDT 40 MG completed [facility] Citalopram 20 MG Oral Tablet Citalopram 11/13/2019 03:47:54 PM EDT 40 MG completed [facility] Citalopram 20 MG Oral Tablet Citalopram 11/13/2019 03:47:54 PM EDT 40 MG completed [facility] gabapentin 400 MG Oral Capsule Gabapentin Gabapentin 2019 03:46:39 PM EDT 400 MG completed [facility] Divalproex Sodium 250 MG Delayed Release Oral Tablet Divalpr oex 11/13/2019 03:46:07 PM EDT 250 MG completed [facility] Divalproex Sodium 250 MG Delayed Release Oral Tablet Divalpr oex 11/13/2019 03:46:07 PM EDT 250 MG completed [facility] Divalproex Sodium 250 MG Delayed Release Oral Tablet Divalpr oex 11/13/2019 03:46:07 PM EDT 250 MG completed [facility] Divalproex Sodium 250 MG Delayed Release Oral Tablet Divalpr oex 11/13/2019 03:46:07 PM EDT 250 MG completed [facility] Divalproex Sodium 250 MG Delayed Release Oral Tablet Divalpr oex 11/13/2019 03:46:07 PM EDT 250 MG completed [facility] Divalproex Sodium 250 MG Delayed Release Oral Tablet Divalpr oex 11/13/2019 03:46:07 PM EDT 250 MG completed [facility] Divalproex Sodium 250 MG Delayed Release Oral Tablet Divalpr oex 11/13/2019 03:46:07 PM EDT 250 MG completed [facility] Divalproex Sodium 250 MG Delayed Release Oral Tablet Divalpr oex 11/13/2019 03:46:07 PM EDT 250 MG completed [facility] Divalproex Sodium 250 MG Delayed Release Oral Tablet Divalpr oex 11/13/2019 03:46:07 PM EDT 250 MG completed [facility] Divalproex Sodium 250 MG Delayed Release Oral Tablet Divalpr oex 11/13/2019 03:46:07 PM EDT 250 MG completed [facility] Citalopram 20 MG Oral Tablet Citalopram 11/13/2019 03:45:33 PM EDT 40 MG completed [facility] Citalopram 20 MG Oral Tablet Citalopram 11/13/2019 03:45:33 PM EDT 40 MG completed [facility] Citalopram 20 MG Oral Tablet Citalopram 11/13/2019 03:45:33 PM EDT 40 MG completed [facility] Citalopram 20 MG Oral Tablet Citalopram 11/13/2019 03:45:33 PM EDT 40 MG completed [facility] Citalopram 20 MG Oral Tablet Citalopram 11/13/2019 03:45:33 PM EDT 40 MG completed [facility] Citalopram 20 MG Oral Tablet Citalopram 11/13/2019 03:45:33 PM EDT 40 MG completed [facility] Citalopram 20 MG Oral Tablet Citalopram 11/13/2019 03:45:33 PM EDT 40 MG completed [facility] Citalopram 20 MG Oral Tablet Citalopram 11/13/2019 03:45:33 PM EDT 40 MG completed [facility] Citalopram 20 MG Oral Tablet Citalopram 11/13/2019 03:45:33 PM EDT 40 MG completed [facility] Citalopram 20 MG Oral Tablet Citalopram 11/13/2019 03:45:33 PM EDT 40 MG completed [facility] Azelastine HCL (Nasal) Azelastine HCL (Nasal) 11/09/2019 12:00:00 AM E DT active [facility] Fluticasone Propionate Nasal [place] Fluticasone Propionate Na makenna [place] 11/09/2019 12:00:00 AM EDT active [facility] ([facility] Testosterone Cypionate 10/19/2019 12:24:56 PM EDT 300 MG completed [facility] Testosterone Cypionate 10/19/2019 12:24:56 PM EDT 300 MG completed [facility] Testosterone Cypionate 10/19/2019 12:24:56 PM EDT 300 MG completed [facility] Testosterone Cypionate 10/19/2019 12:24:56 PM EDT 300 MG completed [facility] Testosterone Cypionate 10/19/2019 12:24:56 PM EDT 300 MG completed [facility] Testosterone Cypionate 10/19/2019 12:24:56 PM EDT 300 MG completed [facility] Testosterone Cypionate 10/19/2019 12:24:56 PM EDT 300 MG completed [facility] Testosterone Cypionate 10/19/2019 12:24:56 PM EDT 300 MG completed [facility] Testosterone Cypionate 10/19/2019 12:24:56 PM EDT 300 MG completed [facility] Testosterone Cypionate 10/19/2019 12:24:56 PM EDT 300 MG completed [facility] Syringe (Disposable) (Bd Luer-Yanira Tip Control Syring) 10 mL syringe 10/19/2019 11:10:00 AM EDT 1 EACH completed [facility] Syringe (Disposable) (Bd Luer-Yanira Tip Control Syring) 10 mL syringe 10/19/2019 11:10:00 AM EDT 1 EACH completed [facility] Syringe (Disposable) (Bd Luer-Yanira Tip Control Syring) 10 mL syringe 10/19/2019 11:10:00 AM EDT 1 EACH completed [facility] Syringe (Disposable) (Bd Luer-Yanira Tip Control Syring) 10 mL syringe 10/19/2019 11:10:00 AM EDT 1 EACH completed [facility] Syringe (Disposable) (Bd Luer-Yanira Tip Control Syring) 10 mL syringe 10/19/2019 11:10:00 AM EDT 1 EACH completed [facility] Syringe (Disposable) (Bd Luer-Yanira Tip Control Syring) 10 mL syringe 10/19/2019 11:10:00 AM EDT 1 EACH completed [facility] Syringe (Disposable) (Bd Luer-Yanira Tip Control Syring) 10 mL syringe 10/19/2019 11:10:00 AM EDT 1 EACH completed [facility] Syringe (Disposable) (Bd Luer-Yanira Tip Control Syring) 10 mL syringe 10/19/2019 11:10:00 AM EDT 1 EACH completed [facility] Syringe (Disposable) (Bd Luer-Ynaira Tip Control Syring) 10 mL syringe 10/19/2019 11:10:00 AM EDT 1 EACH completed [facility] Syringe (Disposable) (Bd Luer-Yanira Tip Control Syring) 10 mL syringe 10/19/2019 11:10:00 AM EDT 1 EACH completed [facility] Trazodone Hydrochloride 50 MG Oral Tablet Trazodone 2019 10:02:22 AM EDT 50 MG completed [facility] Trazodone Hydrochloride 50 MG Oral Tablet Trazodone 2019 10:02:22 AM EDT 50 MG completed [facility] Trazodone Hydrochloride 50 MG Oral Tablet Trazodone 2019 10:02:22 AM EDT 50 MG completed [facility] Trazodone Hydrochloride 50 MG Oral Tablet Trazodone 2019 10:02:22 AM EDT 50 MG completed [facility] Trazodone Hydrochloride 50 MG Oral Tablet Trazodone 2019 10:02:22 AM EDT 50 MG completed [facility] Trazodone Hydrochloride 50 MG Oral Tablet Trazodone 2019 10:02:22 AM EDT 50 MG completed [facility] Trazodone Hydrochloride 50 MG Oral Tablet Trazodone 2019 10:02:22 AM EDT 50 MG completed [facility] Trazodone Hydrochloride 50 MG Oral Tablet Trazodone 2019 10:02:22 AM EDT 50 MG completed [facility] Trazodone Hydrochloride 50 MG Oral Tablet Trazodone 2019 10:02:22 AM EDT 50 MG completed [facility] Trazodone Hydrochloride 50 MG Oral Tablet Trazodone 2019 10:02:22 AM EDT 50 MG completed [facility] Trazodone Hydrochloride 50 MG Oral Tablet Trazodone 2019 10:02:22 AM EDT 50 MG completed [facility] Testosterone Cypionate 08/21/2019 09:55:23 AM EDT 300 MG completed [facility] Testosterone Cypionate 08/21/2019 09:55:23 AM EDT 300 MG completed [facility] Testosterone Cypionate 08/21/2019 09:55:23 AM EDT 300 MG active [facility] Testosterone Cypionate 08/21/2019 09:55:23 AM EDT 300 MG completed [facility] Testosterone Cypionate 08/21/2019 09:55:23 AM EDT 300 MG completed [facility] Testosterone Cypionate 08/21/2019 09:55:23 AM EDT 300 MG completed [facility] Testosterone Cypionate 08/21/2019 09:55:23 AM EDT 300 MG completed [facility] Testosterone Cypionate 08/21/2019 09:55:23 AM EDT 300 MG completed [facility] Testosterone Cypionate 08/21/2019 09:55:23 AM EDT 300 MG completed [facility] Testosterone Cypionate 08/21/2019 09:55:23 AM EDT 300 MG completed [facility] Testosterone Cypionate 08/21/2019 09:55:23 AM EDT 300 MG completed [facility] Loratadine 10 MG Oral Tablet Loratadine (Allergy Relief (Loratadine)) 10 mg tablet Loratadine (Allergy Relief (Loratadine)) 10 mg tablet 07/12/2019 10:16:12 AM EST 10 MG completed [facility] Loratadine 10 MG Oral Tablet Loratadine 07/12/2019 10:16:12 AM EST 10 MG active [facility] Loratadine 10 MG Oral Tablet Loratadine (Allergy Relief (Loratadine)) 10 mg tablet Loratadine (Allergy Relief (Loratadine)) 10 mg tablet 07/12/2019 10:16:12 AM EST 10 MG active [facility] Loratadine 10 MG Oral Tablet Loratadine (Allergy Relief (Loratadine)) 10 mg tablet Loratadine (Allergy Relief (Loratadine)) 10 mg tablet 07/12/2019 10:16:12 AM EST 10 MG completed [facility] Loratadine 10 MG Oral Tablet Loratadine (Allergy Relief (Loratadine)) 10 mg tablet Loratadine (Allergy Relief (Loratadine)) 10 mg tablet 07/12/2019 10:16:12 AM EST 10 MG completed [facility] Loratadine 10 MG Oral Tablet Loratadine (Allergy Relief (Loratadine)) 10 mg tablet Loratadine (Allergy Relief (Loratadine)) 10 mg tablet 07/12/2019 10:16:12 AM EST 10 MG completed [facility] Loratadine 10 MG Oral Tablet Loratadine (Allergy Relief (Loratadine)) 10 mg tablet Loratadine (Allergy Relief (Loratadine)) 10 mg tablet 07/12/2019 10:16:12 AM EST 10 MG completed [facility] Loratadine 10 MG Oral Tablet Loratadine (Allergy Relief (Loratadine)) 10 mg tablet Loratadine (Allergy Relief (Loratadine)) 10 mg tablet 07/12/2019 10:16:12 AM EST 10 MG completed [facility] Loratadine 10 MG Oral Tablet Loratadine (Allergy Relief (Loratadine)) 10 mg tablet Loratadine (Allergy Relief (Loratadine)) 10 mg tablet 07/12/2019 10:16:12 AM EST 10 MG completed [facility] Loratadine 10 MG Oral Tablet Loratadine (Allergy Relief (Loratadine)) 10 mg tablet Loratadine (Allergy Relief (Loratadine)) 10 mg tablet 07/12/2019 10:16:12 AM EST 10 MG active [facility] Loratadine 10 MG Oral Tablet Loratadine (Allergy Relief (Loratadine)) 10 mg tablet Loratadine (Allergy Relief (Loratadine)) 10 mg tablet 07/12/2019 10:16:12 AM EST 10 MG completed [facility] Loratadine 10 MG Oral Tablet Loratadine (Allergy Relief (Loratadine)) 10 mg tablet Loratadine (Allergy Relief (Loratadine)) 10 mg tablet 07/12/2019 10:15:06 AM EST 10 MG completed [facility] Loratadine 10 MG Oral Tablet Loratadine 07/12/2019 10:15:06 AM EST 10 MG completed [facility] Loratadine 10 MG Oral Tablet Loratadine (Allergy Relief (Loratadine)) 10 mg tablet Loratadine (Allergy Relief (Loratadine)) 10 mg tablet 07/12/2019 10:15:06 AM EST 10 MG completed [facility] Loratadine 10 MG Oral Tablet Loratadine (Allergy Relief (Loratadine)) 10 mg tablet Loratadine (Allergy Relief (Loratadine)) 10 mg tablet 07/12/2019 10:15:06 AM EST 10 MG completed [facility] Loratadine 10 MG Oral Tablet Loratadine (Allergy Relief (Loratadine)) 10 mg tablet Loratadine (Allergy Relief (Loratadine)) 10 mg tablet 07/12/2019 10:15:06 AM EST 10 MG completed [facility] Loratadine 10 MG Oral Tablet Loratadine (Allergy Relief (Loratadine)) 10 mg tablet Loratadine (Allergy Relief (Loratadine)) 10 mg tablet 07/12/2019 10:15:06 AM EST 10 MG completed [facility] Loratadine 10 MG Oral Tablet Loratadine (Allergy Relief (Loratadine)) 10 mg tablet Loratadine (Allergy Relief (Loratadine)) 10 mg tablet 07/12/2019 10:15:06 AM EST 10 MG completed [facility] Loratadine 10 MG Oral Tablet Loratadine (Allergy Relief (Loratadine)) 10 mg tablet Loratadine (Allergy Relief (Loratadine)) 10 mg tablet 07/12/2019 10:15:06 AM EST 10 MG completed [facility] Loratadine 10 MG Oral Tablet Loratadine (Allergy Relief (Loratadine)) 10 mg tablet Loratadine (Allergy Relief (Loratadine)) 10 mg tablet 07/12/2019 10:15:06 AM EST 10 MG completed [facility] Loratadine 10 MG Oral Tablet Loratadine (Allergy Relief (Loratadine)) 10 mg tablet Loratadine (Allergy Relief (Loratadine)) 10 mg tablet 07/12/2019 10:15:06 AM EST 10 MG completed [facility] Loratadine 10 MG Oral Tablet Loratadine (Allergy Relief (Loratadine)) 10 mg tablet Loratadine (Allergy Relief (Loratadine)) 10 mg tablet 07/12/2019 10:15:06 AM EST 10 MG completed [facility] montelukast 10 MG Oral Tablet Montelukast Montelukast 07/12/2019 10:14:59 AM EST 10 MG completed [facility] montelukast 10 MG Oral Tablet Montelukast Montelukast 07/12/2019 10:14:59 AM EST 10 MG completed [facility] montelukast 10 MG Oral Tablet Montelukast Montelukast 07/12/2019 10:14:59 AM EST 10 MG completed [facility] montelukast 10 MG Oral Tablet Montelukast Montelukast 07/12/2019 10:14:59 AM EST 10 MG completed [facility] montelukast 10 MG Oral Tablet Montelukast Montelukast 07/12/2019 10:14:59 AM EST 10 MG active [facility] montelukast 10 MG Oral Tablet Montelukast Montelukast 07/12/2019 10:14:59 AM EST 10 MG completed [facility] montelukast 10 MG Oral Tablet Montelukast Montelukast 07/12/2019 10:14:59 AM EST 10 MG active [facility] montelukast 10 MG Oral Tablet Montelukast Montelukast 07/12/2019 10:14:59 AM EST 10 MG completed [facility] montelukast 10 MG Oral Tablet Montelukast Montelukast 07/12/2019 10:14:59 AM EST 10 MG completed [facility] montelukast 10 MG Oral Tablet Montelukast Montelukast 07/12/2019 10:14:59 AM EST 10 MG completed [facility] montelukast 10 MG Oral Tablet Montelukast Montelukast 07/12/2019 10:14:59 AM EST 10 MG active [facility] Testosterone Cypionate 06/27/2019 08:37:11 AM EST 300 MG completed [facility] Testosterone Cypionate 06/27/2019 08:37:11 AM EST 300 MG active [facility] Testosterone Cypionate 06/27/2019 08:37:11 AM EST 300 MG completed [facility] Testosterone Cypionate 06/27/2019 08:37:11 AM EST 300 MG completed [facility] Testosterone Cypionate 06/27/2019 08:37:11 AM EST 300 MG completed [facility] Testosterone Cypionate 06/27/2019 08:37:11 AM EST 300 MG completed [facility] Testosterone Cypionate 06/27/2019 08:37:11 AM EST 300 MG completed [facility] Testosterone Cypionate 06/27/2019 08:37:11 AM EST 300 MG completed [facility] Testosterone Cypionate 06/27/2019 08:37:11 AM EST 300 MG completed [facility] Testosterone Cypionate 06/27/2019 08:37:11 AM EST 300 MG completed [facility] Testosterone Cypionate 06/27/2019 08:37:11 AM EST 300 MG completed [facility] Testosterone Cypionate 06/27/2019 08:37:11 AM EST 300 MG completed [facility] Syringe (Disposable) (Bd Luer-Yanira Tip Control Syring) 10 mL syringe 06/27/2019 08:37:00 AM EST 1 EACH completed [facility] Syringe (Disposable) (Bd Luer-Yanira Tip Control Syring) 10 mL syringe 06/27/2019 08:37:00 AM EST 1 EACH completed [facility] Syringe (Disposable) (Bd Luer-Yanira Tip Control Syring) 10 mL syringe 06/27/2019 08:37:00 AM EST 1 EACH completed [facility] Syringe (Disposable) (Bd Luer-Yanira Tip Control Syring) 10 mL syringe 06/27/2019 08:37:00 AM EST 1 EACH completed [facility] Syringe (Disposable) (Bd Luer-Yanira Tip Control Syring) 10 mL syringe 06/27/2019 08:37:00 AM EST 1 EACH completed [facility] Syringe (Disposable) 06/27/2019 08:37:00 AM EST 1 EACH active [facility] Syringe (Disposable) 06/27/2019 08:37:00 AM EST 1 EACH active [facility] Syringe (Disposable) (Bd Luer-Yanira Tip Control Syring) 10 mL syringe 06/27/2019 08:37:00 AM EST 1 EACH completed [facility] Syringe (Disposable) (Bd Luer-Yanira Tip Control Syring) 10 mL syringe 06/27/2019 08:37:00 AM EST 1 EACH completed [facility] Syringe (Disposable) (Bd Luer-Yanira Tip Control Syring) 10 mL syringe 06/27/2019 08:37:00 AM EST 1 EACH completed [facility] Syringe (Disposable) (Bd Luer-Yanira Tip Control Syring) 10 mL syringe 06/27/2019 08:37:00 AM EST 1 EACH completed [facility] Syringe (Disposable) (Bd Luer-Yanira Tip Control Syring) 10 mL syringe 06/27/2019 08:37:00 AM EST 1 EACH completed [facility] Testosterone Cypionate 04/28/2019 07:29:49 AM EST 300 MG completed [facility] Testosterone Cypionate 04/28/2019 07:29:49 AM EST 300 MG completed [facility] Testosterone Cypionate 04/28/2019 07:29:49 AM EST 300 MG completed [facility] Testosterone Cypionate 04/28/2019 07:29:49 AM EST 300 MG completed [facility] Testosterone Cypionate 04/28/2019 07:29:49 AM EST 300 MG completed [facility] Testosterone Cypionate 04/28/2019 07:29:49 AM EST 300 MG completed [facility] Testosterone Cypionate 04/28/2019 07:29:49 AM EST 300 MG completed [facility] l Testosterone Cypionate 04/28/2019 07:29:49 AM EST 300 MG completed [facility] l Testosterone Cypionate 04/28/2019 07:29:49 AM EST 300 MG completed [facility] l Testosterone Cypionate 04/28/2019 07:29:49 AM EST 300 MG completed [facility] l Testosterone Cypionate 04/28/2019 07:29:49 AM EST 300 MG completed [facility] l Testosterone Cypionate 04/28/2019 07:29:49 AM EST 300 MG completed [facility] l Syringe (Disposable) (Bd Luer-Yanira Tip Control Syring) 10 mL syringe 04/28/2019 07:29:08 AM EST 1 EACH completed [facility] Syringe (Disposable) 04/28/2019 07:29:08 AM EST 1 EACH completed [facility] Syringe (Disposable) (Bd Luer-Yanira Tip Control Syring) 10 mL syringe 04/28/2019 07:29:08 AM EST 1 EACH completed [facility] Syringe (Disposable) (Bd Luer-Yanira Tip Control Syring) 10 mL syringe 04/28/2019 07:29:08 AM EST 1 EACH completed [facility] Syringe (Disposable) 04/28/2019 07:29:08 AM EST 1 EACH completed [facility] Syringe (Disposable) (Bd Luer-Yanira Tip Control Syring) 10 mL syringe 04/28/2019 07:29:08 AM EST 1 EACH completed [facility] Syringe (Disposable) (Bd Luer-Yanira Tip Control Syring) 10 mL syringe 04/28/2019 07:29:08 AM EST 1 EACH completed [facility] Syringe (Disposable) (Bd Luer-Yanira Tip Control Syring) 10 mL syringe 04/28/2019 07:29:08 AM EST 1 EACH completed [facility] Syringe (Disposable) (Bd Luer-Yanira Tip Control Syring) 10 mL syringe 04/28/2019 07:29:08 AM EST 1 EACH completed [facility] Syringe (Disposable) (Bd Luer-Yanira Tip Control Syring) 10 mL syringe 04/28/2019 07:29:08 AM EST 1 EACH completed [facility] Syringe (Disposable) (Bd Luer-Yanira Tip Control Syring) 10 mL syringe 04/28/2019 07:29:08 AM EST 1 EACH completed [facility] Syringe (Disposable) (Bd Luer-Yanira Tip Control Syring) 10 mL syringe 04/28/2019 07:29:08 AM EST 1 EACH completed [facility] Alprazolam 0.5 MG Oral Tablet Alprazolam 02/16/2019 10:08:03 AM EDT 0.5 MG completed [facility] Alprazolam 0.5 MG Oral Tablet Alprazolam 02/16/2019 10:08:03 AM EDT 0.5 MG completed [facility] Alprazolam 0.5 MG Oral Tablet Alprazolam 02/16/2019 10:08:03 AM EDT 0.5 MG completed [facility] Alprazolam 0.5 MG Oral Tablet Alprazolam 02/16/2019 10:08:03 AM EDT 0.5 MG completed [facility] Alprazolam 0.5 MG Oral Tablet Alprazolam 02/16/2019 10:08:03 AM EDT 0.5 MG completed [facility] Alprazolam 0.5 MG Oral Tablet Alprazolam 02/16/2019 10:08:03 AM EDT 0.5 MG completed [facility] Alprazolam 0.5 MG Oral Tablet Alprazolam 02/16/2019 10:08:03 AM EDT 0.5 MG completed [facility] Alprazolam 0.5 MG Oral Tablet Alprazolam 02/16/2019 10:08:03 AM EDT 0.5 MG completed [facility] Alprazolam 0.5 MG Oral Tablet Alprazolam 02/16/2019 10:08:03 AM EDT 0.5 MG completed [facility] Alprazolam 0.5 MG Oral Tablet Alprazolam 02/16/2019 10:08:03 AM EDT 0.5 MG completed [facility] Lisinopril 40 MG Oral Tablet Lisinopril 01/27/2019 02:55:33 PM EDT 40 MG completed [facility] Lisinopril 40 MG Oral Tablet Lisinopril 01/27/2019 02:55:33 PM EDT 40 MG completed [facility] Lisinopril 40 MG Oral Tablet Lisinopril 01/27/2019 02:55:33 PM EDT 40 MG completed [facility] Lisinopril 40 MG Oral Tablet Lisinopril 01/27/2019 02:55:33 PM EDT 40 MG completed [facility] Lisinopril 40 MG Oral Tablet Lisinopril 01/27/2019 02:55:33 PM EDT 40 MG completed [facility] Lisinopril 40 MG Oral Tablet Lisinopril 01/27/2019 02:55:33 PM EDT 40 MG completed [facility] Lisinopril 40 MG Oral Tablet Lisinopril 01/27/2019 02:55:33 PM EDT 40 MG completed [facility] Lisinopril 40 MG Oral Tablet Lisinopril 01/27/2019 02:55:33 PM EDT 40 MG completed [facility] Lisinopril 40 MG Oral Tablet Lisinopril 01/27/2019 02:55:33 PM EDT 40 MG completed [facility] montelukast 10 MG Oral Tablet Montelukast Montelukast 01/11/2019 08:44:39 AM EDT 10 MG completed [facility] montelukast 10 MG Oral Tablet Montelukast Montelukast 01/11/2019 08:44:39 AM EDT 10 MG completed [facility] montelukast 10 MG Oral Tablet Montelukast Montelukast 01/11/2019 08:44:39 AM EDT 10 MG completed [facility] montelukast 10 MG Oral Tablet Montelukast Montelukast 01/11/2019 08:44:39 AM EDT 10 MG completed [facility] montelukast 10 MG Oral Tablet Montelukast Montelukast 01/11/2019 08:44:39 AM EDT 10 MG completed [facility] montelukast 10 MG Oral Tablet Montelukast Montelukast 01/11/2019 08:44:39 AM EDT 10 MG completed [facility] montelukast 10 MG Oral Tablet Montelukast Montelukast 01/11/2019 08:44:39 AM EDT 10 MG completed [facility] montelukast 10 MG Oral Tablet Montelukast Montelukast 01/11/2019 08:44:39 AM EDT 10 MG completed [facility] montelukast 10 MG Oral Tablet Montelukast Montelukast 01/11/2019 08:44:39 AM EDT 10 MG completed [facility] montelukast 10 MG Oral Tablet Montelukast Montelukast 01/11/2019 08:44:39 AM EDT 10 MG completed [facility] montelukast 10 MG Oral Tablet Montelukast Montelukast 01/11/2019 08:44:39 AM EDT 10 MG completed [facility] montelukast 10 MG Oral Tablet Montelukast Montelukast 01/11/2019 08:44:39 AM EDT 10 MG completed [facility] Citalopram 20 MG Oral Tablet Citalopram 01/11/2019 08:36:56 AM EDT 30 MG completed [facility] Citalopram 20 MG Oral Tablet Citalopram 01/11/2019 08:36:56 AM EDT 30 MG completed [facility] Citalopram 20 MG Oral Tablet Citalopram 01/11/2019 08:36:56 AM EDT 30 MG completed [facility] Citalopram 20 MG Oral Tablet Citalopram 01/11/2019 08:36:56 AM EDT 30 MG completed [facility] Citalopram 20 MG Oral Tablet Citalopram 01/11/2019 08:36:56 AM EDT 30 MG completed [facility] Citalopram 20 MG Oral Tablet Citalopram 01/11/2019 08:36:56 AM EDT 30 MG completed [facility] Citalopram 20 MG Oral Tablet Citalopram 01/11/2019 08:36:56 AM EDT 30 MG completed [facility] Citalopram 20 MG Oral Tablet Citalopram 01/11/2019 08:36:56 AM EDT 30 MG completed [facility] Citalopram 20 MG Oral Tablet Citalopram 01/11/2019 08:36:56 AM EDT 30 MG completed [facility] Citalopram 20 MG Oral Tablet Citalopram 01/11/2019 08:36:56 AM EDT 30 MG completed [facility] meloxicam 7.5 MG Oral Tablet Meloxicam Meloxicam 12/06/2018 09:1 0:22 AM EDT 7.5 MG completed [facility] meloxicam 7.5 MG Oral Tablet Meloxicam Meloxicam 12/06/2018 09:1 0:22 AM EDT 7.5 MG completed [facility] meloxicam 7.5 MG Oral Tablet Meloxicam Meloxicam 12/06/2018 09:1 0:22 AM EDT 7.5 MG completed [facility] meloxicam 7.5 MG Oral Tablet Meloxicam Meloxicam 12/06/2018 09:1 0:22 AM EDT 7.5 MG completed [facility] meloxicam 7.5 MG Oral Tablet Meloxicam Meloxicam 12/06/2018 09:1 0:22 AM EDT 7.5 MG completed [facility] meloxicam 7.5 MG Oral Tablet Meloxicam Meloxicam 12/06/2018 09:1 0:22 AM EDT 7.5 MG completed [facility] meloxicam 7.5 MG Oral Tablet Meloxicam Meloxicam 12/06/2018 09:1 0:22 AM EDT 7.5 MG completed [facility] meloxicam 7.5 MG Oral Tablet Meloxicam Meloxicam 12/06/2018 09:1 0:22 AM EDT 7.5 MG completed [facility] meloxicam 7.5 MG Oral Tablet Meloxicam Meloxicam 12/06/2018 09:1 0:22 AM EDT 7.5 MG completed [facility] meloxicam 7.5 MG Oral Tablet Meloxicam Meloxicam 12/06/2018 09:1 0:22 AM EDT 7.5 MG [facility] Divalproex Sodium 250 MG Delayed Release Oral Tablet Divalpr oex 12/06/2018 09:01:16 AM EDT completed [facility] Divalproex Sodium 250 MG Delayed Release Oral Tablet Divalpr oex 12/06/2018 09:01:16 AM EDT completed [facility] Divalproex Sodium 250 MG Delayed Release Oral Tablet Divalpr oex 12/06/2018 09:01:16 AM EDT completed [facility] Divalproex Sodium 250 MG Delayed Release Oral Tablet Divalpr oex 12/06/2018 09:01:16 AM EDT completed [facility] Divalproex Sodium 250 MG Delayed Release Oral Tablet Divalpr oex 12/06/2018 09:01:16 AM EDT completed [facility] Divalproex Sodium 250 MG Delayed Release Oral Tablet Divalpr oex 12/06/2018 09:01:16 AM EDT completed [facility] Divalproex Sodium 250 MG Delayed Release Oral Tablet Divalpr oex 12/06/2018 09:01:16 AM EDT completed [facility] Divalproex Sodium 250 MG Delayed Release Oral Tablet Divalpr oex 12/06/2018 09:01:16 AM EDT completed [facility] Divalproex Sodium 250 MG Delayed Release Oral Tablet Divalpr oex 12/06/2018 09:01:16 AM EDT completed [facility] Divalproex Sodium 250 MG Delayed Release Oral Tablet Divalpr oex 12/06/2018 09:01:16 AM EDT completed [facility] 24 HR Bupropion Hydrochloride 300 MG Extended Release Oral Tablet Bupropion Hcl Bupropion Hcl 09/06/2018 09:28:00 AM EDT 300 MG complete d [facility] 24 HR Bupropion Hydrochloride 300 MG Extended Release Oral Tablet Bupropion Hcl Bupropion Hcl 09/06/2018 09:28:00 AM EDT 300 MG complete d [facility] 24 HR Bupropion Hydrochloride 300 MG Extended Release Oral Tablet Bupropion Hcl Bupropion Hcl 09/06/2018 09:28:00 AM EDT 300 MG complete d [facility] 24 HR Bupropion Hydrochloride 300 MG Extended Release Oral Tablet Bupropion Hcl Bupropion Hcl 09/06/2018 09:28:00 AM EDT 300 MG complete d [facility] 24 HR Bupropion Hydrochloride 300 MG Extended Release Oral Tablet Bupropion Hcl Bupropion Hcl 09/06/2018 09:28:00 AM EDT 300 MG complete d [facility] 24 HR Bupropion Hydrochloride 300 MG Extended Release Oral Tablet Bupropion Hcl Bupropion Hcl 09/06/2018 09:28:00 AM EDT 300 MG complete d [facility] 24 HR Bupropion Hydrochloride 300 MG Extended Release Oral Tablet Bupropion Hcl Bupropion Hcl 09/06/2018 09:28:00 AM EDT 300 MG complete d [facility] 24 HR Bupropion Hydrochloride 300 MG Extended Release Oral Tablet Bupropion Hcl Bupropion Hcl 09/06/2018 09:28:00 AM EDT 300 MG complete d [facility] 24 HR Bupropion Hydrochloride 300 MG Extended Release Oral Tablet Bupropion Hcl Bupropion Hcl 09/06/2018 09:28:00 AM EDT 300 MG complete d [facility] 24 HR Bupropion Hydrochloride 300 MG Extended Release Oral Tablet Bupropion Hcl Bupropion Hcl 09/06/2018 09:28:00 AM EDT 300 MG complete d [facility] 24 HR Bupropion Hydrochloride 300 MG Extended Release Oral Tablet Bupropion Hcl Bupropion Hcl 09/06/2018 09:28:00 AM EDT 300 MG complete d [facility] 24 HR Bupropion Hydrochloride 300 MG Extended Release Oral Tablet Bupropion Hcl Bupropion Hcl 09/06/2018 09:28:00 AM EDT 300 MG complete d [facility] Trazodone Hydrochloride 50 MG Oral Tablet Trazodone Hcl Traz odone Hcl 07/08/2018 08:40:00 AM EST [facility] Trazodone Hydrochloride 50 MG Oral Tablet Trazodone Hcl Traz odone Hcl 07/08/2018 08:40:00 AM EST [facility] Trazodone Hydrochloride 50 MG Oral Tablet Trazodone Hcl Traz odone Hcl 07/08/2018 08:40:00 AM EST [facility] Trazodone Hydrochloride 50 MG Oral Tablet Trazodone Hcl Traz odone Hcl 07/08/2018 08:40:00 AM EST [facility] Trazodone Hydrochloride 50 MG Oral Tablet Trazodone Hcl Traz odone Hcl 07/08/2018 08:40:00 AM EST [facility] Trazodone Hydrochloride 50 MG Oral Tablet Trazodone Hcl Traz odone Hcl 07/08/2018 08:40:00 AM EST completed [facility] Trazodone Hydrochloride 50 MG Oral Tablet Trazodone Hcl Traz odone Hcl 07/08/2018 08:40:00 AM EST completed [facility] Trazodone Hydrochloride 50 MG Oral Tablet Trazodone Hcl Traz odone Hcl 07/08/2018 08:40:00 AM EST completed [facility] Trazodone Hydrochloride 50 MG Oral Tablet Trazodone Hcl Traz odone Hcl 07/08/2018 08:40:00 AM EST completed [facility] Trazodone Hydrochloride 50 MG Oral Tablet Trazodone Hcl Traz odone Hcl 07/08/2018 08:40:00 AM EST completed [facility] Trazodone Hydrochloride 50 MG Oral Tablet Trazodone Hcl Traz odone Hcl 07/08/2018 08:40:00 AM EST completed [facility] Trazodone Hydrochloride 50 MG Oral Tablet Trazodone Hcl Traz odone Hcl 07/08/2018 08:40:00 AM EST completed [facility] gabapentin 400 MG Oral Capsule Gabapentin Gabapentin 2013 10:47:38 AM EDT 400 MG completed [facility] gabapentin 400 MG Oral Capsule Gabapentin Gabapentin 2013 10:47:38 AM EDT 400 MG completed [facility] gabapentin 400 MG Oral Capsule Gabapentin Gabapentin 2013 10:47:38 AM EDT 400 MG completed [facility] gabapentin 400 MG Oral Capsule Gabapentin Gabapentin 2013 10:47:38 AM EDT 400 MG completed [facility] gabapentin 400 MG Oral Capsule Gabapentin Gabapentin 2013 10:47:38 AM EDT 400 MG completed [facility] gabapentin 400 MG Oral Capsule Gabapentin Gabapentin 2013 10:47:38 AM EDT 400 MG completed [facility] gabapentin 400 MG Oral Capsule Gabapentin Gabapentin 2013 10:47:38 AM EDT 400 MG completed [facility] gabapentin 400 MG Oral Capsule Gabapentin Gabapentin 2013 10:47:38 AM EDT 400 MG completed [facility] gabapentin 400 MG Oral Capsule Gabapentin Gabapentin 2013 10:47:38 AM EDT 400 MG completed [facility] gabapentin 400 MG Oral Capsule Gabapentin Gabapentin 2013 10:47:38 AM EDT 400 MG completed [facility] sildenafil 100 MG Oral Tablet [Viagra] Sildenafil (Via gra) 100 mg tablet Sildenafil (Viagra) 100 mg tablet 12/20/2012 10:04:00 AM EDT 100 MG completed [facility] sildenafil 100 MG Oral Tablet [Viagra] Sildenafil (Via gra) 100 mg tablet Sildenafil (Viagra) 100 mg tablet 12/20/2012 10:04:00 AM EDT 100 MG completed [facility] sildenafil 100 MG Oral Tablet [Viagra] Sildenafil (Via gra) 100 mg tablet Sildenafil (Viagra) 100 mg tablet 12/20/2012 10:04:00 AM EDT 100 MG completed [facility] sildenafil 100 MG Oral Tablet [Viagra] Sildenafil (Via gra) 100 mg tablet Sildenafil (Viagra) 100 mg tablet 12/20/2012 10:04:00 AM EDT 100 MG completed [facility] sildenafil 100 MG Oral Tablet [Viagra] Sildenafil (Via gra) 100 mg tablet Sildenafil (Viagra) 100 mg tablet 12/20/2012 10:04:00 AM EDT 100 MG completed [facility] sildenafil 100 MG Oral Tablet [Viagra] Sildenafil (Via gra) 100 mg tablet Sildenafil (Viagra) 100 mg tablet 12/20/2012 10:04:00 AM EDT 100 MG completed [facility] sildenafil 100 MG Oral Tablet [Viagra] Sildenafil (Via gra) 100 mg tablet Sildenafil (Viagra) 100 mg tablet 12/20/2012 10:04:00 AM EDT 100 MG completed [facility] sildenafil 100 MG Oral Tablet [Viagra] Sildenafil (Via gra) 100 mg tablet Sildenafil (Viagra) 100 mg tablet 12/20/2012 10:04:00 AM EDT 100 MG completed [facility] Insurance Providers Payer name Policy type / Coverage type Policy ID Covered republican ID Covered republican's relationship to valentino Policy Valentino Plan Information [facility] [id number] SP [id number] [facility] [id number] SP [id number] [facility] [id number] [id number] [facility] [id number] SP [id number] MEDICARE [id number] SP [id number] MEDICARE [id number] SP [id number] A [facility] HMO [id number] SP [id number] [place] [facility] [place] [id number] 18 [id number] [place] [id number] 18 [id number] SELF PAY [facility] AD [id number] SP [id number] SELF PAY SELF PAY [employer] MEDICARE COMPLETE - O/P [id number] 18 [id number] [facility] MGD MEDICARE [id number] SP [id number] MEDICARE PART A-O/P [id number] 18 [id number] [place] [id number] 18 [id number] [employer] MEDICARE COMPLETE - O/P [id number] 18 [id number] [facility] Other 0 Self 0 Medicare P [id number] S [id number] a MEDICARE A [id number] Self [id number] MEDICARE PART A [id number] Patient [id number] MEDICARE PART A [id number] Patient [id number] UNICARE [id number] Patient [id number] MEDICARE A [id number] Self [id number] A MEDICARE-CL[facility] [id number] undefined [id number] [facility] [id number] S [id number] MEDICARE C [id number] S [id number] A MEDICARE PART A -I/P [id number] 18 [id number] Medicare P [id number] S [id number] [place] Primary Self Medicare P UNAVAILABLE S UNAVAILA BLE Medicare P [id number] S [id number] a MEDICARE -O/P [id number] 18 [id number] Problems, Conditions, and Diagnoses Code Display Name Description Problem Type Effective Dates Data Source(s) 39807341 Schizoaffective disorder, depressive typ e Schizoaffective disorder, depressive type Problem 04/18/2020 12:00:00 AM EST [facility] ([facility]) Ventral hernia without obstruction or ga ngrene Ventral hernia without obstruction or gangrene Problem 02/06/2020 12:00:00 AM EDT [facility] ([facility]) [id number] Essential hypertension Essential hypertension Problem 02/06/2020 12:00:00 AM EDT [facility] ([facility]) [id number] Allergic rhinitis due to pollen Allergic rhiniti s due to pollen Problem 11/09/2019 12:00:00 AM EDT [facility] ([facility] Note: 3+ positive reaction to ragweed po llen on intradermal test. [id number] Allergic rhinitis due to house dust mite Allergic rhinitis due to house dust mite Problem 11/09/2019 12:00:00 AM EDT [facility] ([facility] Note: 4+ reaction to dust mites and cock roaches on intradermal test. [id number] Essential hypertension Essential hypertension Problem 11/09/2019 12:00:00 AM EDT [facility] ([facility] ) F251 Schizoaffective disorder, depressive typ e Schizoaffective disorder, depressive type Diagnosis 06/06/2020 01:55:00 PM EST [facility] D48.5 Neoplasm of uncertain behavior of skin D 48.5 - Neoplasm of uncertain behavior of skin Diagnosis 03/04/2020 04:45:00 PM EDT [facility] NONPAR NONPAR Diagnosis 03/04/2020 02:51:00 PM ED T [facility] D48.5 Neoplasm of uncertain behavior of skin N EOPLASM OF UNCERTAIN BEHAVIOR OF SKIN Diagnosis 03/04/2020 02:51:00 PM EDT [facility] ital F17.200 Nicotine dependence, unspecified, uncomp licated F17.200 - Nicotine dependence, unspecified, uncomplicated Diagnosis 02/12/2020 12:00:00 A M EDT [facility] F12.10 Cannabis abuse, uncomplicated F12.10 - Cannabis abuse, uncomplicated Diagnosis 02/12/2020 12:00:00 AM EDT [facility] F19.10 Other psychoactive substance abuse, unco mplicated F19.10 - Other psychoactive substance abuse, uncomplicated Diagnosis 02/12/2020 12:00:00 AM EDT [facility] F43.10 Post-traumatic stress disorder, unspecif ied F43.10 - Post-traumatic stress disorder, unspecified Diagnosis 02/12/2020 12:00:00 AM EDT [facility] F41.0 Panic disorder [episodic paroxysmal anxi ety] F41.0 - Panic disorder [episodic paroxysmal anxiety] Diagnosis 02/12/2020 12:00:00 AM [facility] F41.1 Generalized anxiety disorder F41.1 - Generalized anxiety disorder Diagnosis 02/12/2020 12:00:00 AM EDT [facility] F31.2 Bipolar disorder, current episode manic severe with psychotic features F31.2 - Bipolar disorder, current episode manic severe with psychotic features Diagnosis 02/12/2020 12:00:00 AM EDT [facility] F22 Delusional disorders F22 - Delusional disorders Diagno sis 02/12/2020 12:00:00 AM EDT [facility] F341 Dysthymic disorder Dysthymic disorder Diagnosis 0 06:08:00 PM EDT [facility] I10 Essential (primary) hypertension Essential (primary) h ypertension Diagnosis 02/07/2020 06:08:00 PM EDT [facility] L538 Other specified erythematous conditions Other specified erythematous conditions Diagnosis 02/07/2020 06:08:00 PM EDT [facility] E860 Dehydration Dehydration Diagnosis 02/07/2020 06:08:00 PM EDT [facility] R110 Nausea Nausea Diagnosis 02/07/2020 06:08:00 PM ED T [facility] K420 Umbilical hernia with obstruction, witho ut gangrene Umbilical hernia with obstruction, without gangrene Diagnosis 02/06/2020 02:30:00 PM EDT [facility] K439 Ventral hernia without obstruction or ga ngrene Ventral hernia without obstruction or gangrene Diagnosis 02/06/2020 10:51:00 AM EDT [facility] Y[address] or not applicable Unspecified place or not applicable Diagnosis 05/29/2019 01:24:00 PM [facility] [id number] Exposure to other specified factors, ini tial encounter Exposure to other specified factors, initial encounter Diagnosis 05/29/2019 01:24:00 PM [facility] [id number] Strain of muscle, fascia and tendon of the posterior muscle group at thigh level, left thigh, initial encounter Strain of muscle, fascia and tendon of the posterior muscle group at thigh level, left thigh, initial encounter Diagnosis 05/29/2019 01:24:00 PM [facility] [id number] Sprain of unspecified site of left knee, initial encounter Sprain of unspecified site of left knee, initial encounter Diagnosis 05/29 01:24:00 PM [facility] [id number] Unspecified injury of left lower leg, in itial encounter Unspecified injury of left lower leg, initial encounter Diagnosis 05/29/2019 01:24:00 PM [facility] Surgeries/Procedures Procedure Description Date Indications Data Source(s) Computed tomography of abdomen and pelvis with contrast (pro cedure) 06/30/2020 03:52:00 PM [facility] Viral antigen assay (procedure) 06/21/2020 12:00:00 AM [facility] Psychiatric Diagnostic Evaluation 04/18/2020 12:00:00 AM [facility] Cytopathology procedure, preparation of smear, genital sourc e (procedure) 02/07/2020 12:00:00 AM [facility] Cytopathology procedure, preparation of smear, genital sourc e (procedure) 02/07/2020 12:00:00 AM [facility] Cytopathology procedure, preparation of smear, genital sourc e (procedure) 02/07/2020 12:00:00 AM [facility] Cytopathology procedure, preparation of smear, genital sourc e (procedure) 02/07/2020 12:00:00 AM [facility] Cytopathology procedure, preparation of smear, genital sourc e (procedure) 02/07/2020 12:00:00 AM [facility] Blood culture for bacteria, including anaerobic screen (proc edure) 02/07/2020 12:00:00 AM [facility] Blood culture for bacteria, including anaerobic screen (proc edure) 02/07/2020 12:00:00 AM [facility] Computed tomography of abdomen and pelvis with contrast (pro cedure) 02/05/2020 09:21:00 PM [facility] Computed tomography of abdomen and pelvis with contrast (pro cedure) 02/05/2020 09:21:00 PM [facility] Computed tomography of abdomen and pelvis with contrast (pro cedure) 02/05/2020 09:21:00 PM EDT [facility] Computed tomography of abdomen and pelvis with contrast (pro cedure) 02/05/2020 09:21:00 PM EDT [facility] Computed tomography of abdomen and pelvis with contrast (pro cedure) 02/05/2020 09:21:00 PM EDT [facility] Computed tomography of abdomen and pelvis with contrast (pro cedure) 02/05/2020 09:21:00 PM EDT [facility] Computed tomography of abdomen and pelvis with contrast (pro cedure) 02/05/2020 09:21:00 PM EDT [facility] Computed tomography of abdomen and pelvis with contrast (pro cedure) 02/05/2020 09:21:00 PM EDT [facility] PERCUTANEOUS TESTS W/ALLERGENIC EXTRACTS 11/09/2019 12 :00:00 AM EDT [facility] ([facility]) INTRACUTANEOUS TESTS W/ALLERGENIC EXTRACTS 11/09/2019 12:00:00 AM EDT [facility] ([facility] Results ID Date Data Source [id number] 06/30/2020 06:32:00 PM [facility] ED Physician Documentation NAME: PIPER LICEA : 1970 AGE: 49 MR#: [id number] SERVICE DATE: 06/30/[address]: Marin Masters MD PRIMARY CARE DR: Kelli Mcmanus ROOM#: HPI (Adult, General) General Chief Complaint: GI Stated Complaint: STOMACH PAIN, WEAKNESS Time Seen by Provider: 06/30/20 12:33 Source: patient Exam Limitations: no limitations History of Present Illness Narrative: Patient complains of 5-day history of progressively worsening,persistent, 10/10 severity, sharp periumbilical pain. Patient was seen at [facility] in [place] yesterday, had a CT scan of the [...] % (Auto) 72.0, Lymph % (Auto) 19.1, Bailey % (Auto) 8.0, Eos % (Auto) 0.1, [...] Appearance Clear, Urine pH 7.0, Ur Specific [place] 1.016, Urine Protein Negative, Urine Ketones 15 mg/dl A, Urine Blood Negative, Urine Nitrate Negative, Urine Bilirubin Negative, Urine Urobilinogen 0.2 eu/dl, Ur Leukocyte Esterase Negative, Add Ur Microanalysis No, Urine Glucose Negative Radiology Data Radiology impressions: CT abdomen and pelvis-thickening of the rectal wall. Medical Decision Making Free Text/Narative:: Patient refused transfer to a hospital with a correctional treatment specialist for proctoscopy and biopsy of the rectum [...] rce(s) Supporting Document(s) ID Date Data Source [id number] 06/30/2020 04:46:00 PM EST [facility] Reason for ordering culture: Abnormal fi ndings UAMethod of Collection:: Voided Name Value Range Interpretation Code Description Data Geneva rce(s) Supporting Document(s) Color of Urine [facility] Appearance of Urine CLEAR [facility] pH of Urine by Test strip 7.0 5-8 [facility] Specific gravity of Urine by Refractometry 1.016 1.005-1.030 [facility] Leukocyte esterase [Presence] in Urine by Test strip NEGAT JALEN [facility] Nitrite [Presence] in Urine by Test strip NEGATIVE [facility] Protein [Presence] in Urine by Test strip NEGATIVE [facility] Glucose [Mass/volume] in Urine by Automated test strip NEGATIVE NEG ATIVE [facility] Ketones [Presence] in Urine by Test strip NEGATI VE Abnormal (applies to non- numeric results) [facility] Urobilinogen [Presence] in Urine 0.2-1 EU/dl [facility] Bilirubin.total [Presence] in Urine by Automated test strip NEGATIVE [facility] Erythrocytes [#/volume] in Urine by Test strip NEGATIVE NEGATIVE [facility] URINE MICROSCOPIC? (CIF) NO [facility] ID Date Data Source [id number] 06/30/2020 04:00:00 PM EST [facility] [address] [place] [address] [phone] NAME SEX PT STATUS ACCOUNT NUMBER PIPER LICEA [facility] ER [id number] ORDERING PHYSICIAN LOCATION MEDICAL RECORD NO. Marin Masters MD ER [id number] ATTENDING PHYSICIAN DATE OF DATE OF EXAM/TIME [...] rce(s) Supporting Document(s) ID Date Data Source [id number] 06/30/2020 03:06:00 PM EST [facility] Name Value Range Interpretation Code Description Data Geneva rce(s) Supporting Document(s) Urea nitrogen [Mass/volume] in Serum or Plasma 6 mg/dL 9-23 Below low normal [facility] Sodium [Moles/volume] in Serum or Plasma 132 mmol/L 132-146 [facility] Potassium [Moles/volume] in Serum or Plasma 3.9 mmol/L 3.5-5.5 [facility] Chloride [Moles/volume] in Serum or Plasma 98 mmol/L 99-109 [place] w low normal [facility] Carbon dioxide, total [Moles/volume] in Serum or Plasma 26 mmol/L 20 -31 [facility] Anion gap in Serum or Plasma 12 mmol/L 8-16 [facility] Glucose [Mass/volume] in Serum or Plasma 109 mg/dL 74-106 Above high normal [facility] Creatinine 0.7 mg/dL 0.5-1.1 [facility] Glomerular filtration rate/1.73 sq M.pre dicted [Volume Rate/Area] in Serum or Plasma Greater Than 60 ABOVE 60 [facility] Alanine aminotransferase [Enzymatic acti vity/volume] in Serum or Plasma by With P-5'-P 31 U/L 10-49 [facility] ital Aspartate aminotransferase [Enzymatic ac tivity/volume] in Serum or Plasma by With P-5'-P 17 U/L 0-33 N [facility] pital Alkaline phosphatase [Enzymatic activity/volume] in Serum or Plasma 69 U/L 45-129 [facility] Calcium [Mass/volume] in Serum or Plasma 8.8 mg/dL 8.5-10.1 N [facility] Bilirubin.total [Mass/volume] in Serum or Plasma 0.6 mg/dL 0.3-1.2 N [facility] Albumin [Mass/volume] in Serum or Plasma by Bromocresol purple (BCP) dye binding method 3.8 g/dL 3.2-4.8 N [facility] ital Protein [Mass/volume] in Serum or Plasma 6.9 g/dL 5.7-8.2 N [facility] ID Date Data Source [id number] 06/30/2020 03:06:00 PM [facility] Name Value Range Interpretation Code Description Data Geneva rce(s) Supporting Document(s) Amylase [Enzymatic activity/volume] in Serum or Plasma 46 U/L 30- 118 N [facility] ID Date Data Source [id number] 06/30/2020 03:06:00 PM [facility] Name Value Range Interpretation Code Description Data Geneva rce(s) Supporting Document(s) Lipase [Enzymatic activity/volume] in Serum or Plasma 99 U/L 73-3 93 N [facility] ID Date Data Source [id number] 06/30/2020 02:47:00 PM [facility] Name Value Range Interpretation Code Description Data Geneva rce(s) Supporting Document(s) Leukocytes [#/volume] in Blood by Automated count 8.5 10*3/uL 4.45-10 .71 N [facility] Erythrocytes [#/volume] in Blood by Automated count 5.17 10*6/uL 4.3- 6.1 [facility] Hemoglobin [Moles/volume] in Blood 15.9 g/dL 13-18 N [facility] Hematocrit [Volume Fraction] of Blood by Automated count 45.3 % 4 2-52 N [facility] Erythrocyte mean corpuscular volume [Ent itic volume] in Cord blood by Automated count 87.6 fL 80-96 N [facility] ital Erythrocyte mean corpuscular hemoglobin [Entitic mass] by Automated count 30.8 pg 27-31 [facility] E[facility] mean corpuscular hemoglobin concentration [Mass/volume] in Cord blood 35.1 g/dL 33-37 N [facility] ital Erythrocyte distribution width [Entitic volume] by Automated count 13 % 11-15 N [facility] Platelets [#/volume] in Blood by Automated count 246 10*3/uL 130-472 N [facility] Platelet mean volume [Entitic volume] in Blood 9.3 fL 9.1-13.1 N [facility] Neutrophils/100 leukocytes in Blood by Automated count 72.0 % 41- 77 N [facility] Neutrophils [#/volume] in Blood by Automated count 6.1 U 1.7-7.6 N [facility] Lymphocytes/100 leukocytes in Blood by Automated count 19.1 % 14- 46 N [facility] Lymphocytes [#/volume] in Blood by Automated count 1.6 U 0.6-4.6 N [facility] Monocytes/100 leukocytes in Blood by Automated count 8.0 % 4-12 N [facility] Monocytes [#/volume] in Blood by Automated count 0.7 U 0.2-1.2 N [facility] Eosinophils/100 leukocytes in Blood by Automated count 0.1 % 0-7 [facility] Eosinophils [#/volume] in Blood by Automated count 0.0 U 0.0-0.5 N [facility] Basophils/100 leukocytes in Blood by Automated count 0.4 % 0.4-1 .3 N [facility] Basophils [#/volume] in Blood by Automated count 0.0 U 0.0-0.2 N [facility] NUCLEATED RED BLOOD CELL 0 % [facility] NUCLEATED RED BLOOD CELL# 0 U [facility] Immature granulocytes [Presence] in Blood by Automated count 0-2 N [facility] Immature granulocytes [#/volume] in Blood by Automated count 0.0 U 0-0.1 N [facility] Manual Differential panel - Blood NO [facility] ID Date Data Source [id number] 06/22/2020 12:00:00 AM EST [facility] Name Value Range Interpretation Code Description Data Geneva rce(s) Supporting Document(s) SARS-CoV-2 (COVID-19) RNA [Presence] in Respiratory specimen by RICARDO with probe detection Not Detected [facility] This lab was ordered by [facility] and reported by [employer]. ID Date Data Source [id number] 06/21/2020 06:08:00 PM [facility] Normal result is "BinaxNow Covid-19 Ag n egative"BinaxNow Covid-19 Ag is a rapid lateral flowimmunochromatographic immunoassayThis test detects both viable(live) and non-viable, SARS-COVand SARS-COV-2.Positive test results do not differentiate between SARS-COVand ZOEM-CUU-7Imqqfkog results , from patients with symptom onset beyondseven days, should be treated as presumptive andconfirmation with a molecular assay, if necessary, forpatient managementIf the differentiation of specific SARS viruses and strainsis needed, additional testing, in consultation with stateand local public health departments, is required.SARS-CoV-2 Ag Resp Ql IA.rapid Name Value Range Interpretation Code Description Data Geneva rce(s) Supporting Document(s) ID Date Data Source [id number] 06/21/2020 05:19:00 PM EST [facility] Name Value Range Interpretation Code Description Data Geneva rce(s) Supporting Document(s) SARS-CoV-2 (COVID-19) Ag [Presence] in R espiratory specimen by Rapid immunoassay BinaxNow Covid -19 Ag Negative [facility] This lab was ordered by [facility] and reported by [facility]. ID Date Data Source [id number] 06/21/2020 09:31:00 AM [facility] Patient Name: PIPER LICEA : 1970 Sex: M Pt Unit #: [id number] Location:[facility] Provider: Visit Date/Time: 06/21/20 Primary Insurance: [employer] Secondary Insurance: Self Pay Intake Intake Visit [...] Screening Screening Have you traveled outside of [facility] or [facility] in the last 14 days.: No [...] of nose and nasal sinuses SNOMED Code(s): 80216397 Category: Medical (2) Headache: Status: Acute Code(s): R51.9 - Headache, unspecified SNOMED Code(s): 62056325 Category: Medical Additional Comments Additional Comments: I [...] Headache R51.9 <Electronically signed by Kelli Mcmanus MOUNTAIN GUIDE> 06/21/20 0938 Name Value Range Interpretation Code Description Data Geneva rce(s) Supporting Document(s) ID Date Data Source [id number] 06/04/2020 01:18:00 PM [facility] Patient Name: PIPER LICEA : 1970 Sex: M Pt Unit #: [id number] Location:[facility] Provider: Visit Date/Time: 06/04/20 Primary Insurance: [employer] Secondary Insurance: Self Pay Intake Vital Signs [...] and colleagues, with an educational elie from [employer]. HIV Testing Offer - ages 13-64 HIV testing Offer: No Coronavirus Screening Screening Have you traveled outside of [facility] or [facility] in the last 14 days.: No Has patient experienced coronavirus symptoms: No [facility] Medical History (Updated 04/04/20 @ 10:32 by [...] depressive disorder, single episode, unspecified SNOMED Code(s): 42143143 Category: Medical Plan - Kelli Mcmanus NP: Continue 150mg sertaline. See back in 2-3 months for annual PE. Continue to see [facility] [facility]. Additional Comments Additional Comments: Paper completed for DMV. Orders Other Medications: Changed: From: olanzapine 10 mg PO QPM 30 days 30 tabs 3RF To: olanzapine 20 mg (2 x 10 mg) PO QPM 60 tabs 3RF Coding Level of Care Code 78661 Est Pt Limited Comp Exam Problem Focused Diagnoses Depression F32.9 <Electronically signed by Kelli Mcmanus MOUNTAIN GUIDE> 06/04/20 1349 Name Value Range Interpretation Code Description Data Geneva rce(s) Supporting Document(s) ID Date Data Source [id number] 05/07/2020 10:59:00 AM [facility] Patient Name: PIPER LICEA : 1970 Sex: M Pt Unit #: [id number] Location:[facility] Provider: Visit Date/Time: 05/07/20 Primary Insurance: [employer] Secondary Insurance: Self Pay Intake Vital Signs [...] gives 2 needles-can he get more), klonopin. Home Health Nurse Required: No Allergies dust mites Allergy (Severe, [...] and colleagues, with an educational elie from [employer]. HIV Testing Offer - ages 13-64 HIV testing Offer: No Coronavirus Screening Screening Have you traveled outside of [facility] or [facility] in the last 14 days.: No Has patient experienced coronavirus symptoms: No [facility] Medical History (Updated 04/04/20 @ 10:32 by [...] attempt. [facility] been [facility] and this has been going [...] depressive disorder, single episode, unspecified SNOMED Code(s): 30605482 Category: Medical Plan - Kelli Mcmanus NP: [...] cypionate Inject 1ml into muscle Q2 week STAMP REDEMPTION CLERK:[id number] 200 mg IM Q2W 14 days 1 vial 0RF MDD 300 R79.89 Follow Up: 1 Month (Mental health) <Electronically signed by Kelli Mcmanus MOUNTAIN GUIDE> 05/07/20 1308 Name Value Range Interpretation Code Description Data Geneva rce(s) Supporting Document(s) ID Date Data Source [id number] 05/06/2020 11:29:00 AM EST [facility] ([facility]) Name Value Range Interpretation Code Description Data Geneva rce(s) Supporting Document(s) PDF Laboratory test result [facility] {DIAGNOSIS: F25.1~{MEDICATIONS/DECLARED : CLONAZEPAM DEPAKOTE MELOXICAM PRAZOSIN~{PRESCRIPTION I Laboratory test finding (navigational concept) Laboratory test result [facility] {DIAGNOSIS: F25.1~{MEDICATIONS/DECLARED : CLONAZEPAM DEPAKOTE MELOXICAM PRAZOSIN~{PRESCRIPTION I ID Date Data Source [id number] 05/11/2020 06:59:00 AM EST [facility] Name Value Range Interpretation Code Description Data Geneva rce(s) Supporting Document(s) Drugs identified in Urine FINAL [facility] TOXASSURE SELECT 13 (MW) Test Result Flag [...] clinical consultation, please call . Report . [facility] ID Date Data Source [id number] 04/24/2020 11:41:00 AM EST [facility] Patient Name: PIPER LICEA : 1970 Sex: M Pt Unit #: [id number] Location:[facility] Provider: Visit Date/Time: 04/24/20 Primary Insurance: [employer] Secondary Insurance: Self Pay Intake Vital Signs [...] Screening Screening Have you traveled outside of [facility] or [facility] in the last 14 days.: No Has patient experienced coronavirus symptoms: No [facility] Medical History (Updated 04/04/20 @ 10:32 by [...] F41.9 - Anxiety disorder, unspecified SNOMED Code(s): 00888009 Category: Medical Plan - Kelli Mcmanus NP: Anxiety at baseline. Will keep follow up for next month. Paperwork completed. No concerns today. <Electronically signed by Kelli Mcmanus MOUNTAIN GUIDE> 04/24/20 1301 Name Value Range Interpretation Code Description Data Geneva rce(s) Supporting Document(s) ID Date Data Source [id number] 04/09/2020 07:37:00 AM EST [facility] Name Value Range Interpretation Code Description Data Geneva rce(s) Supporting Document(s) Free Testosterone (Direct) 218.6 pg/mL 46.0-224.0 [facility] The concentration of free testosterone i s derivedfrom a mathematical model using total testosteroneby LCMSMS, sex hormone binding globulin and albumin.This test was developed and its analytical performancecharacteristics have been determined by [employer] [place], [place]. It hasnot been cleared or approved by the U.S. Food and DrugAdministration. This assay has been validated pursuantto the CLIA regulations and is used for clinicalpurposes.THIS TEST WAS PERFORMED AT:[employer] [place] [address]FPZTGNEBLAISE FOY MD,PHD ID Date Data Source [id number] 04/09/2020 07:37:00 AM [facility] Name Value Range Interpretation Code Description Data Geneva rce(s) Supporting Document(s) Testosterone 649 ng/dL [id number] [facility] THIS TEST WAS PERFORMED AT:[employer] [address] [id number] MERATI,MD ID Date Data Source [id number] 04/04/2020 10:05:00 AM [facility] Patient Name: PIPER LICEA : 1970 Sex: M Pt Unit #: [id number] Location:[facility] Provider: Visit Date/Time: 04/04/20 Primary Insurance: [employer] Secondary Insurance: Self Pay Intake Vital Signs [...] still suffering with severe depression and anxiety. Home Health Nurse Required: No Accompanied by: Self / Same [...] Screening Screening Have you traveled outside of [facility] or [facility] in the last 14 days.: No [...] depressive disorder, single episode, unspecified SNOMED Code(s): 60773965 Category: Medical Orders: Referrals: Mental Health Referral (3) Anxiety: Status: Acute Code(s): F41.9 - Anxiety disorder, unspecified SNOMED Code(s): 58969116 Category: Medical Orders: Referrals: Mental Health Referral (4) PTSD (post-traumatic stress disorder): Status: Acute Code(s): F43.10 - Post-traumatic stress disorder, unspecified SNOMED Code(s): 71099211 Category: Medical (5) Paranoia: Status: Acute Code(s): F22 - Delusional disorders SNOMED Code(s): 130940258 Category: Medical Additional Comments Additional Comments: Increased sertraline to 100mg. Will consider changing his xanax to clonazepam. He will be reaching out to Tee at [facility] [place], to see if he can get back [...] cypionate Inject 1.5ml into muscle Q2 week STAMP REDEMPTION CLERK:[id number] 300 mg (1.5 mL) IM Q2W 14 days 1.5 vials 0RF MDD 300 R79.89 To: testosterone cypionate Inject 1ml into muscle Q2 week STAMP REDEMPTION CLERK:[id number] 200 mg IM Q2W 14 days 1 [...] rce(s) Supporting Document(s) ID Date Data Source [id number] 03/13/2020 10:01:00 AM EDT [facility] Patient Name: Piper Licea : 1970 Sex: M Pt Unit #: [id number] Location:[facility] Provider: Visit Date/Time: 03/13/20 Primary Insurance: [facility] Secondary Insurance: Self Pay Intake [...] in the am and 1000mg at HS. Home Health Nurse Required: No Accompanied by: Self / Same [...] Screening Screening Have you traveled outside of [facility] or [facility] in the last 14 days.: No [...] up on medications. He was recently in [place], admitted for vivid nightmares, and PTSD. He [...] Route Admin Location Lot Number Expiration Date [facility] Manufactu rer 60 mcg IM Left deltoid [id number] 11/27/20 [id number] [employer] VIS Given Date VIS Provided VIS Publication Date 03/13/20 Single Vaccine 20 Eligibility Eligibility Date Funding Source Not [facility] Eligible 03/13/20 Private Assessment Plan Assessment Plan (1) Encounter for medication adjustment: Code(s): Z51.89 - Encounter for other specified aftercare (2) Depression: Status: Acute Code(s): F32.9 - Major depressive disorder, single episode, unspecified Category: Medical Plan - Kelli Mcmanus NP: He is doing well on new medications. He was seeing in [place], however, he is unable to be seen [...] Today Z23 <Electronically signed by Kelli Mcmanus MOUNTAIN GUIDE> 03/13/20 1138 Name Value Range Interpretation Code Description Data Geneva rce(s) Supporting Document(s) ID Date Data Source [id number] 03/06/2020 05:32:01 PM EDT [facility] Name Value Range Interpretation Code Description Data Geneva rce(s) Supporting Document(s) PATHOLOGY RESULT () N [facility] Name: PIPER LICEA : [address]: Eb Becker PAAcct: [id number] Unit: [id number] AGE: 49 Location: [facility] NPRe03/04/20 SEX: M Status: REG REF . SPEC: [id number] MARISABEL: 03/04/20-[address] [facility] [address]: Eb Becker PAREQ: [id number] RECD: 03/04/20STATUS: SOUT_ORDERED: LEVEL 4COMMENTS: [id number] . FINAL DIAGNOSISSkin, sternum, biopsy:-- Excoriation.-- No [...] END OF REPORT .. DEPARTMENT OF PATHOLOGY, [address] [place] [address] Lucien Puckett M.D. Director [facility] # [id number]. ID Date Data Source [id number] 03/06/2020 10:30:01 AM EDT [facility] Name Value Range Interpretation Code Description Data Geneva rce(s) Supporting Document(s) ID Date Data Source [id number] 03/05/2020 10:21:00 AM EDT [facility]#[id number]_ Name: PIPER LICEA : [address]: Eb MARTEL Acct: [id number] Unit: [id number] AGE: 49 Location: [facility] Re03/04/20 SEX: M Status: REG REF SPEC: [id number] MARISABEL: 03/04/20-1418 SUBM : Eb MARTEL REQ: [id number] RECD: 03/04/20 STATUS: SOUT _ORDERED: LEVEL 4 COMMENTS: [id number] FINAL DIAGNOSIS Skin, sternum, biopsy:-- Excoriation.-- No [...] 1021 END OF REPORT DEPARTMENT OF PATHOLOGY, [address] [place] [address] Lucien Puckett M.D. Director [facility] # [id number] Name Value Range Interpretation Code Description Data Geneva rce(s) Supporting Document(s) ID Date Data Source [id number] 02/12/2020 09:57:00 AM EDT [facility] Name Value Range Interpretation Code Description Data Geneva rce(s) Supporting Document(s) SARS-CoV-2 (COVID-19) N gene [Presence] in Nasopharynx by RICARDO with probe detection [facility] This lab was ordered by [facility] and reported by [facility]. ID Date Data Source [id number] 02/12/2020 07:42:00 PM EDT [facility] COVID Reason ED patient Priority Name Value Range Interpretation Code Description Data Geneva rce(s) Supporting Document(s) COVID 19 (RHEONIX) NOT-DETECTED NOTDETECTED [facility] The [employer]ra[employer]x COVID-19 MDx Assay is an en dpoint RT-PCR assay intended for the qualitative detection of nucleic acid from SARS-CoV-2 in nasopharyngeal swabs. COVID testing using the SterraClimbx analyzer was developed for the purpose of [...] public health authorities. ID Date Data Source [id number] 02/12/2020 04:46:[place] [address] RESPIRATORY CARE REPORT ==== ---------NAME------- NUMBER SEX AGE ADMIT DISC. XRAY# F/C TYPENATALIYA [place] [id number] M 49 02/07/20 02/08/20 [id number] [place] O/P DATE OF : 1970 M/R# [id number] #: [id number] LOCATION: EMERGENCY DEPT [facility] [address] COMP LETE:02/08/20 07:15 [place] [id number] PHYSICIAN: SYLVIA SCHAEFER Name Value Range Interpretation Code Description Data Geneva rce(s) Supporting Document(s) ID Date Data Source [id number] 02/12/2020 04:30:43 AM EDT [facility] Name Value Range Interpretation Code Description Data Geneva rce(s) Supporting Document(s) EKG/ECG IN ED [facility] [file] 5kG8C4CoqXox4oYHxAZ3nhiwsEwEDRMNcYkJmGM2P9v8wX45rELhFK6FMTxx6//López/fJs615K9kg/s [file] gxCiiigAooooAKKKKACiiigAooooAKKKKACiiigAooooAKKKKACiiigAooooAKKKKACiiigAooooAKKK PPJmhukSipozR7lhY6+2/4F/EwJhaqNpjobd8fNnpnr/ZU6OGPVlNUxQYnAxweeUGRKwlzOl4l+tJRRQ Zsr0wCmnaNeL+8frRRTGJRRRSEFLRRQMG+8frSUUUA I1ljbqvWZdwD8xfwGOg1HYMbNAuPEIhz4k+tNMPJRv6mDidnFMG78h5mCERyFOKAYmkyUNZYftA79zOK OY6hYncqXXCJduF03TNr8FqSYEBFclXCEZ44i4nMxzzDqxczppWqoQ+6oeGPYDCQ3mmkLQoszsNT+8fr OWWBQZ4mZAAGNg/er6r0T/kAad/16xf+giiiqidmE3 ZfrX8N/oBGWn8W34Y+YooqnsdFf+VB1ycxdeoyrqznlXJPUGEWbohiLifegJOYSVZAlsmrYnvwhXNNPI ACiiigAooooAKKKKACiiigAooooAKKKKACiiigAooooA//8D1OLX2qb4HnSIExYZijmgVlXbxISiS3IU Mnt3XsNEi4GM0QjOPnF40gbnK2bI4SQVwoCehzp6De JHOnDmkmaNTgH0GuGVZuTILpe4OcX6nhdtz6sZGvWBD+Ha3Te7PmRQVkAOu1eP0LELmAMXDYu9H/cGM7 dBrlZ0gSqKfBfVf8DQqjiVgqYjv/a4MwyrYUvxdlznhFtPFEEHLUdESXSEXuCamslsdZCQSYaUBlhRVy Qg7oBTckkUe7NjSVaArjLTM6xgd8QoAQJD+SF8XJ45 0BjIMtaVflmX5eL3RkYnpEid4vxk+MlUyMhomyiD10DzkGmZO4eErguQCHmp3Pc1rwZJvn2GQCu5+1WK eUkZyaulk4Mza/vexA4DneM2N4HbxVGbESAbBhPGV3dqXknP3VXD6rs8RySAmcRFOlMF9irr9SUNxxHT JvZHVjZXIo/p4VXBKfTWKWvtWgZHUPctXdPTLByoFz AT4XEkQpHAmLFmDxDRCBCxBhMXVXCRXuIEXDBMWeQMloE0OyNHD8i3Lp/w3PMGVwLKQZeyVfNDZEonPd VWQJolJfQU1ATePhNRjZAvYlMKVEJcKpNIGKSZBtRZMIOGCpSDcjM7GjNKQ7bV0tCPV4RJvMVxKdTbZn VDC5VVmyQeQeQVXjGM0rAUG6SEvAFbGzZmMuDYE5AN gzMzEyKSA+Lo1HTC8hc6AnCZndMCKcPH9boj0FEqCbFWNxTJ9WUP9eu8DqTCkxQLUjHT9nxy9LNcVvRB VgBT6GSO0dg4HjPSrbKBCgFP9lru1PWDerVVcePA0WMpMlP9VdoxDfEiIrN7wePRM5QBGlWG8Pv338EC SnODVWL7uuCb4qSLyiNZEJD9jUTcv1FYAtXCGcRIS1 W0LfNXHFSHEXARW0FhyNLOI7NGEoJW42NrQ0TRmQATL6SUGRBMS2UOUNBuWITGD2MFPBDJQoOJG+XSAv MrtveAHaS5IfXUJaAOLlx4MmJ7iylyw2nFC9YM0+BWjbfRSzUS1AZvflI3KKhq//GYGkIAMDiKqFUFvB EHRzJUO4O2raFuTKCW4vzbZxUHAOBiEYBwEPGKQYM7 OfxlAKJDbvhD2UkJhdSaoXZHTGmuwheIu+OcHnN5VLMU/lQ1CJClTrBYF1fjYdeV9IIU4bp5PtWQw7oq CkBNwrUDKdVDkkLXEdYNNcDTFjIBS6NAF2XOUMCmSsDLTpWULbTWivMDRiMBIxzq4YFODjUMBnVSGrZE ZuGCNbFDHpGFgcJZFgEGZfCUdbRXPeCHEhBD2VKxFd WOOyEMP8SCGfWLNiANRghp2KWYVpPYEbWDayGFPdCQScZTFmOUhvXQXpEOJnLATeWXVsCHTrCK3MVePr IIRcXLRtFNRcFJEdZZDfnw8CBPHkPJHjWLOnCsXlQMLjFEEvDIycAFBiZMUxMJM2QLXwWOEqYW4UZdEb OFTvWTInPUYdSwG0FlToMi7EJZEpMXZgYDBiBiZ8WT JtGJKhMYjpCMQvHHFdXYDfGFF9WCJ4AEEVHdVfKYHnTDCtQWXeNlJ2EbLgWm7DIOMiYKQiGPVyQRD5IO NwWJWhUVwlDWEpGEXeXCT7FNA8VFE7HCEIPaMoAIFcTRXaMOvcByS9RhRpDn4YCEDxJCYbBORzJUI0MT SlLTKsCWaoEDDyWhZ1MmYjCNAuAJXoDK1LNwYqCAIb Cwf2FOjdRDKrZDOgcn4QQCBnCUYeZyJ7WaXyQSYsHIRrMIuoQNFhTiK8SKavCWBoQFBbGD0TDpIqKFgd KWVQHgd3Y1AmmeOoDcHoLs4tkHYaJXUfRl2ZeiGtNOC9MDDpBb3WKYu3EyR0KZjLLCF5YSKYVLQ9IOLH XkIUFNX3XQFRBNMcPJT+CNp3ZjV1JPNsCGonCvR7DG TPTgYDSXdJWJYMOQgiSjLTVc8wJl9BAnV2AFC7zSIrBa5YDmI6LrXbAZvbECKYBn1YnSZbZu2ZRCZoVP r2bmJjhYJzLQk9TQ9GxGnsXLRdJ2Pju2YoXWIpDFUlEK7rpaGcLJIcHRVvOSMdFYd8RnB7ARXpEFmgEg P0RDNBZjDZOCkILRKXWScrObDLCfc0WUBrQSGoWGZ2 B1HcDMKQAQOQMCY7ZanCGEE1EWHiWX3mHH4SmbG6WVKiAun4IJ1SGrDsH4PcNBFtRkA0Jv3+DQpzdGFy jZyzPVLDYfYkCWI7SE0POKGWT3P= ID Date Data Source [id number] 02/12/2020 04:30:00 [place] [address] Patient Name: Piper Licea Exam Date: 02/11/20 : 1970 CC: EKG/ECG in ED Ordering Doctor: Magda Rosales DO Attending Doctor: Magda Rosales DO CC: EKG/ECG in ED APPROVED REPORT ECG MEASUREMENT Heart Rate 110 AXES CO 147 P 31 QRSd 141 QRS -42 QT 351 T -3 QTc 416 INTERPRETATION SINUS TACHYCARDIA RIGHT BUNDLE BRANCH BLOCK. NO PRIOR AVAILABLE FOR COMPARISON. <Conclusion> SINUS TACHYCARDIA RIGHT BUNDLE BRANCH BLOCK. NO PRIOR AVAILABLE FOR COMPARISON. End of diagnostic report for accession: [id number] Interpreted: Magda Rosales DO 02/12/20429 Transcribed: Signed: Magda Rosales DO 02/12/20430 Interpreted by: Dwayne Rosalesscribed by: Magda Rosales Name Value Range Interpretation Code Description Data [place] rce(s) Supporting Document(s) ID Date Data Source [id number] 02/12/2020 02:20:00 [place] [address] HEALTH INFORMATION MANAGEMENT Consultation : [id number] Signed Patient: Piper Licea Acct:[id number] Unit: [place] [id number] : 1970 Loc: ED Room/Bed: Age/Sex: 49 [...] DAILY 02/12/20 testosterone cypionate 300 mg IM [id number] 02/12/20 Current Visit Medications: Discontinued Medications Generic [...] MPV Gran % (Auto) Lymph % (Auto) Bailey % (Auto) Eos % (Auto) Baso % (Auto) Nucleat RBC Rel Count Gran # Lymph # (Auto) Bailey # (Auto) Eos # (Auto) Baso # [...] Urine Appearance CLEAR Urine pH 6.0 Specific [place] (Man) 1.008 Urine Protein 30 H Urine [...] 76.7 H Lymph % (Auto) 16.2 L Bailey % (Auto) 6.6 Eos % (Auto) 0.0 Baso % (Auto) 0.2 Nucleat RBC Rel Count Not Reportable Gran # 11.18 H Lymph # (Auto) 2.4 Bailey # (Auto) 0.96 Eos # (Auto) 0.00 Baso # (Auto) 0.03 Immature Gran # (Auto) 0.1 Absolute Nucleated RBC Not Reportable Immature Gran % 0.3 Sodium Potassium Chloride Carbon Dioxide Anion Gap BUN Creatinine Estimated GFR (MDRD) BUN/Creatinine Ratio Glucose Calcium Total Bilirubin AST ALT Alkaline Phosphatase Total Protein Albumin Globulin Albumin/Globulin Ratio TSH Urine Color Urine Appearance Urine pH Specific [place] (Man) Urine Protein Urine Glucose (UA) Urine [...] with paranoid ideation, [facility] and psycho [...] was more than 50% counseling:: Yes Inpatient 65583 Initial INpt- Low (less than/equal 30 minutes): Yes Signed By:Elton Jennings MD <<Signature on File>> Signed Date/Time: 02/12/20533 Co-Signer: Co-Signed Date/Time: Initializing User: Elton Jennings MD [phone] Name Value Range Interpretation Code Description Data [place] rce(s) Supporting Document(s) ID Date Data Source [id number] 02/12/2020 12:11:00 AM EDT [address] [address] HEALTH INFORMATION MANAGEMENT ED/UC Physician Report : [id number] Signed Patient: Piper Licea Acct:[id number] Unit: [id number] : 1970 Arrival Date: 02/11/20 Age/Sex: 49 [...] presents for psychiatric evaluation. Patient presents with [facility] police. Patient reportedly has been extremely [...] DAILY 02/12/20 testosterone cypionate 300 mg IM [id number] 02/12/20 Allergies No Known Allergies Allergy (Unverified [...] able to access the patient's records from [facility]. Patient was admitted there i 2017 for similar symptoms. Patient is from the [facility] and has been admitted multiple times at [facility]. Unfortunately do not have access to those [...] cypionate 200 mg/mL oil 300 mg IM [id number] RF: 0 lisinopril 40 mg tablet 40 mg PO DAILY RF: 0 Referrals: PCP,No [Primary Care Provider] - Date/Time <<Signature on File>> Initializing User: Magda Rosales 02/12/20 0011 Signed by: ConnieMagda 02/12/20 0655 Name Value Range Interpretation Code Description Data [facility] rce(s) Supporting Document(s) ID Date Data Source [id number] 02/12/2020 12:17:00 AM EDT [facility] Name Value Range Interpretation Code Description Data [facility] rce(s) Supporting Document(s) COLOR,UR YELLOW YELLOW [facility] APPEARANCE,UR CLEAR CLEAR [facility] PH,UR 6.0 5.0-8.0 [facility] SPECIFIC GRAVITY,UR 1.008 1.002-1.035 [facility] PROTEIN,UR 30 MG/DL NEGATIVE A [facility] GLUCOSE, UR NEGATIVE MG/DL NEGATIVE [facility] KETONES,UR 80 MG/DL NEGATIVE [facility] OCCULT BLOOD,UR NEGATIVE NEGATIVE [facility] NITRATE,UR NEGATIVE NEGATIVE [facility] LEUKOCYTE ESTERASE ,UR NEGATIVE NEGATIVE [facility] BILIRUBIN,UR NEGATIVE NEGATIVE [facility] UROBILINOGEN,UR 0.2-1.0 EU MG/DL NEG-0-1.0 [facility] ID Date Data Source [id number] 02/12/2020 12:24:00 AM EDT [facility] Name Value Range Interpretation Code Description Data [facility] rce(s) Supporting Document(s) OPIATE SCREEN NEG NEGATIVE [facility] Minimum Detectable Limit is 300 ng/mL. BARBITURATE SCREEN NEG NEGATIVE [facility] Minimum Detectable Limit is 300 ng/mL. PHENCYCLIDINE SCREEN NEG NEGATIVE [facility] Minimum Detectable Limit is 25 ng/mL. AMPHETAMINE SCREEN NEG NEGATIVE [facility] Minimum Detectable Limit is 1000 mg/mL. BENZODIAZEPINE SCREEN POS NEGATIVE [facility] Mininum Detectable Limit is 300 ng/mL. COCAINE SCREEN NEG NEGATIVE [facility] Minimum Detectable Limit is 300 ng/mL. CANNABINOID SCREEN NEG NEGATIVE [facility] Minimum Detectable limit is 50 ng/dL. HEROIN SCREEN NEG NEGATIVE [facility] Minimum Detectable limit is 10 ng/dL. A ll POSITIVE or BORDER results are unconfirmed. Please contact the laboratory if a reference testing confirmation is needed. ID Date Data Source [id number] 02/12/2020 12:21:00 AM EDT [facility] Has Patient Fasted For The [...] WHITE BLOOD COUNT 14.58 10^3/uL 4.00-10.50 [facility] RED BLOOD COUNT 6.19 10^6/uL 4.30-5.80 [facility] HEMOGLOBIN 18.7 G/DL 13.0-17.5 H [facility] Critical Results for H&H Ratio. Ch ceasar for possible cryoprecipitates. HEMATOCRIT 52.7 % 41.0-53.0 N [facility] MCV 85.1 FL 80.0-100.0 N [facility] MCH 30.2 PG 27.0-34.0 N [facility] MCHC 35.5 G/DL 32-36 N [facility] RDW 13.1 % 11.5-14.5 N [facility] PLATELET COUNT 290 10^3/uL 130-400 N [facility] MPV 10.0 FL 8.7-13.2 N [facility] GRAN % (AUTO) 76.7 % 42.0-75.0 [facility] LYMPH % (AUTO) 16.2 % 20.0-51.0 [facility] MONO % (AUTO) 6.6 % 2.0-15.0 N [facility] EOS % (AUTO) 0.0 % 0.0-11.0 [facility] BASO % (AUTO) 0.2 % 0.0-2.0 [facility] IG % (AUTO) 0.3 % 1.00-5.00 [facility] IG # (AUTO) 0.1 10^3/uL <0.5 [facility] GRAN # (AUTO) 11.18 10^3/uL 1.50-6.50 [facility] LYMPH # (AUTO) 2.4 k/uL 1.0-5.0 N [facility] MONO # (AUTO) 0.96 k/uL 0.20-1.50 N [facility] EOS # (AUTO) 0.00 10^3/uL 0.00-1.10 N [facility] BASO # (AUTO) 0.03 10^3/uL 0.00-0.20 N [facility] ID Date Data Source [id number] 02/12/2020 12:33:00 AM EDT [facility] Has Patient Fasted For The [...] Supporting Document(s) SODIUM 136 MEQ/L 135-145 N [facility] POTASSIUM 4.4 MEQ/L 3.5-5.3 [facility] CHLORIDE 101 MEQ/L 94-110 [facility] CARBON DIOXIDE 20 MEQ/L 22-33 L [facility] ANION GAP 19 5-16 H [facility] BLOOD UREA NITRO 7 MG/DL 7-25 N [facility] CREATININE 0.8 MG/DL 0.6-1.4 [facility] GFR > 90.0 ML/MIN [facility] Stage G1 - Normal or high kidney functi on The GFR is an estimate of the Glomerular Filtration Rate. It is an aid to assess a patient's renal function. It is not a conclusive diagnosis of kidney disease. GFR normal is >=90 The MDRD GFR calculation is considered valid between the ages of 18 and 75 years only. BUN/CREAT RATIO 8 8-36 N [facility] GLUCOSE 119 MG/DL 70-100 H [facility] CA 10.4 MG/DL 8.7-10.5 N [facility] BILIRUBIN,TOTAL 1.1 MG/DL 0.1-1.3 N [facility] AST 39 U/L 5-40 N [facility] ALT 65 U/L 5-48 H [facility] ALKALINE PHOSPHATASE 72 U/L 40-140 [facility] alth TOTAL PROTEIN 7.2 G/DL 5.9-8.3 N [facility] ALBUMIN 5.4 G/DL 3.0-5.1 H [facility] GLOBULIN 1.8 G/DL 1.5-3.5 N [facility] ALB/GLOB RATIO 3.0 G/DL 1.0-3.0 N [facility] ID Date Data Source [id number] 02/12/2020 12:33:00 AM EDT [facility] Has Patient Fasted For The [...] Supporting Document(s) TSH 2.004 uIU/ML 0.470-4.200 N [facility] Patients should not be tested for 73 ho urs post fluorescein dye angiography. A false depression of result may occur. ID Date Data Source [id number] 02/12/2020 12:33:00 AM T [facility] Has Patient Fasted For The [...] Document(s) SALICYLATE < 3.0 MG/DL 2.8-20.0 N [facility] ID Date Data Source [id number] 02/12/2020 12:33:00 AM T [facility] Has Patient Fasted For The [...] Document(s) ACETAMINOPHEN < 2.0 UG/ML 10-30 L [facility] High levels of N-acetylcysteine (used t o treat Acetaminophen overdose) may cause interference and cause a negative bias in the Acetaminophen result. ID Date Data Source [id number] 02/12/2020 12:33:00 AM [facility] Has Patient Fasted For The [...] Document(s) BLOOD ALCOHOL < 0.03 % <0.03 [facility] ID Date Data Source [id number] 02/08/2020 12:11:00 [place] [address] PHONE: [phone] FAX: [phone] Name .................. : NATALIYA Spain Acct Number.................. : [id number] ROOM. ................. : TR-06 MR Number ................... : [id number] Stay type ............. : E/R Discharge Date......... ... : Admit Date ......... : 0 02/07/20 Admit Phys .................... : COONEYNORM Date of ....... : 1970 Family Phys ................... : YONATHAN COR Phone .................. : [phone] Age ................................ : 49 Film# .................. .:[id number] Sex ................................. : M Unsigned transcriptions are preliminary reports and do not represent a medical or legal document CT ABD & PELVIS W/ IV ONLY [id number] COMPLETE:02/07/20 18:42 22688 Reason(s): Pending CMP: Abd pain s/p surgery; [...] versus postoperative change. Page 1 of 2 [facility] [address] [place] [address] PHONE: [phone] FAX: [phone] Name .................. : NATALIYA Spain Acct Number.................. : [id number] ROOM. ................. : TR-06 Number ................... : [id number] Stay type ............. : E/R Discharge Date......... ... : Admit Date ......... : 02/07/20 Admit Phys .................... : COONEYNORM Date of ....... : 1970 Family Phys ................... : YONATHAN COR Phone .................. : [phone] Age ................................ : 49 Film# .................. .:[id number] Sex ................................. : M Unsigned transcriptions are preliminary reports and do not represent a medical or legal document CT ABD & PELVIS W/ IV ONLY [id number] COMPLETE:02/07/20 18:42 11371 Reason(s): Pending CMP: Abd pain s/p surgery; [...] By Bethel Garcia M.D. , 02/08/20 12:11, [facility] Transcribe Initials: CRISTIANO , Transcribe Date: 02/07/20 22:16, Dictation Date: Copy for: MYRANDA CABRERA via fax Copy for: EMERGENCY DEPT via modem Copy for: 710 MED REC DISCHARGED Page 2 of 2 Name Value Range Interpretation Code Description Data [place] rce(s) Supporting Document(s) ID Date Data Source [id number] 02/07/2020 06:08:00 PM EDT [facility] 1 OrderSheet [facility] Emergency Department [address] [place] [address] Phone #: ext- [phone] 02/07/2020 18:07 Patient: PIPER LICEA Sex: M [...] P.A.- C;Lactic Acid STAT 18:42 02/07/2020 18:52 Israel Langley R.N. P.A.-C;Blood Culture STAT 18:42 02/07/2020 [...] 18:42 02/07/2020 20:55 Shivam, 2 OrderS et [facility] Emergency Department [address] [place] [address] Phone #: ext- [phone] 02/07/2020 18:07 Patient: [...] P.A.-C;EKG 18:42 02/07/2020 18:52 Israel Langley R.N. P.A.-C;Front End Mechanic 18:42 02/07/2020 18:52 Shivam(continuous) Israel Yap R.N. P.A.-C;Blood Pressure 18:42 02/07/2020 18:52 Shivam,Monitor Israel Yap R.N., P.A.-C;Pulse oximeter 18:42 02/07/2020 18:52 Shivam(Continuous) Israel Yap R.N., P.A.-C; 3 OrderSheet [facility] Emergency Department [address] [place] [address] Phone #: ext- [phone] 02/07/2020 18:07 Patient: PIPER LICEA Sex: M : 1970 Age: 49y[Electronically signed by Ector Maravilla RN (00:04 02/08/2020)][Electronically signed by Israel Puri P.A.-C (10:27 02/08/2020)][Electronically locked by Ector Maravilla RN (00:04 02/08/2020)] Name Value Range Interpretation Code Description Data [place] rce(s) Supporting Document(s) ID Date Data Source [id number] 02/07/2020 06:08:00 PM EDT [facility] 1 Medication Reconciliation Report [facility] Emergency Department [address] [place] [address] Phone #: ext- [phone] 02/07/2020 18:07 Patient: [...] rce(s) Supporting Document(s) ID Date Data Source [id number] 02/07/2020 06:08:00 PM EDT [facility] 1 Medication Administration Record [facility] Emergency Department [address] [place] [address] Phone #: ext- [phone] 02/07/2020 18:07 Patient: [...] wristStart ROCEPHIN (1GM/50ML) [IVPB] Rocephin (1gm/50mL) IVPB 345301:06 02/07/2020 (CEFTRIAXONE SODIUM) mg with Dextrose 50 ml spike bagSFracisco torres R.N. Dose: 1 gm IVPB (D5W)---- Rate: 100 mL/hr over 30 minute(s)Stop Dispensed: 50 mL bag22:36 02/07/2020 Site: #1 left Dina Maravilla RN Name Value Range Interpretation Code Description Data [place] rce(s) Supporting Document(s) ID Date Data Source [id number] 02/07/2020 06:08:00 PM EDT [facility] 1 General Instructions [facility] Emergency Department [address] [place] [address] Phone #: ext- [phone] 02/07/2020 18:07 Patient: [...] or other clear liquids. 2 General Instructions [facility] Emergency Department [address] [place] [address] Phone #: ukp- [phone] 02/07/2020 18:07 [id number] Sex: M : 1970 Age: 49y Watch [...] chest, arm, back, neck or jaw pain [id number] [employer] [place] [address]. All rights reserved. This information is not intended as asubstitute for professional medical care. Always follow your healthcare professional's instructions. You have been given the following additional information: Unknown Causes of Abdominal Pain (Male)(Electronically signed by Israel Puri P.A.-C 02/08/2020 10:27) Name Value Range Interpretation Code Description Data [place] rce(s) Supporting Document(s) ID Date Data Source [id number] 02/07/2020 06:08:00 PM EDT [facility] 1 Clinical Report - Nurses [facility] Emergency Department [address] [place] [address] Phone #: ext- [phone] 02/07/2020 18:07 Patient: PIPER LICEA Sex: M : 1970 Age: 49yTRIAGEArrived by EMS. Historian: patient.Acuity: LEVEL 3.Chief Complaint: ABDOMINAL PAIN and NAUSEA and (dizzziness).Alert. No acute distress.This started last night. ( patient had a abd hernia repair yesterday by here at [facility]. States painis 04/09, with severe nausea. denies vomiting.). No diarrhea, constipation or fever. Last oral intake bypatient was lunch today.Treatment OUTBOUND SALES PROFESSIONAL:Took Tylenol.EMS Treatment OUTBOUND SALES PROFESSIONAL:See EMS report.SEPSIS SCREEN: Sepsis Screen negative. No [...] following entry was struck and corrected by Marible Perez R.N., 18:14 (02/07/20) Reason forcorrection - other(correction). CeleXA Oral. --18:13 02/07/20 Maribel Perez R.N. 2 Clinical Report - Nurses [facility] Emergency Department [address] [place] [address] Phone #: ext- [phone] 02/07/2020 18:07 Patient: PIPER LICEA Sex: M : 1970 Age: 49y The following entry was struck and corrected by Maribel ePrez R.N., 18:14 (02/07/20) Reason for correction - [...] acute distress. 3 Clinical Report - Nurses [facility] Emergency Department [address] [place] [address] Phone #: ext- [phone] 02/07/2020 18:07 Patient: [...] above umbilicus). 4 Clinical Report - Nurses [facility] Emergency De partment [address] [place] [address] Phone #: ext- [phone] 02/07/2020 18:07 Patient: PIPER LICEA Sex: M [...] color within normal limits. Patient transported to [place] by wheelchair.Two patient identifiers checked. Call light [...] urine. Urine: 5 Clinical Report - Nurses [facility] Emergency Department [address] [place] [address] Phone #: ext- [phone] 02/07/2020 18:07 Patient: [...] rce(s) Supporting Document(s) ID Date Data Source [id number] 02/07/2020 06:08:00 PM EDT [facility] 1 Clinical Report - Physicians/Mid Levels [facility] Emergency Department [address] [place] [address] Phone #: ext- [phone] 02/07/2020 18:07 Patient: [...] ablation. 2 Clinical Report - Physicians/Mid Levels [facility] Emergency Department [address] [place] [address] Phone #: ext- [phone] 02/07/2020 18:07 Patient: PIPER LICEA [facility]#: [id number] Sex: M : 1970 Age: 49y Medications: [...] PM 3 Clinical Report - Physicians/Mid Levels [facility] Emergency Department [address] [place] [address] Phone #: ext- [phone] 02/07/2020 18:07 Patient: PIPER LICEA Sex: M : 1970 Age: 49y1. No free air or abscess.2.Small flecks of air in an area measuring approximately 1.6 cm just superior to the umbilicus likely.Laboratory Tests:PT/INR: (MARISABEL: 02/07/2020 19:01) ( [facility] 02/07/[facility] 19:35) Final results Test Result Flag Units (Reference) PROTIME 13.3 SECONDS (11.0 - 15.5) INR 1.00 (0.93 - 1.23) \\BLDo\\INR INTERPRETATION\\BLDx\\ Therapeutic range for C griceldamadin andrelated oral anticoagulants. -International Normalized Ratio (INR): 2.0 - 3.0 for VenousThrombosis, Pulmonary Embolus, Tissue heart valves, Acute GA, Atrial Fibrillation, Valvular heartdisease and recurrent Systemic Embolism. -International Normalized Ratio (INR): 2.5 - 3.5for Mechanical Prosthetic valve.CBC w Diff: (MARISABEL: 02/07/2020 19:01) ( [facility] 02/07/2020 19:57) Final results Test Result Flag [...] % 4 Clinical Report - Physicians/Mid Levels [facility] Emergency Department [address] [place] [address] Phone #: ext- [phone] 02/07/2020 18:07 -------- [...] Male GFR Interprentation 20-49 yrs >60 mL/min Xcgphl94-48 yrs >56 mL/min Normal 60-69 yrs >49 mL/min Normal 70-79yrs>42 mL/min Normal 80 and above >35 mL/min Normal Female GFRInterpretation 20-39 yrs >60 mL/min Normal 40-49 yrs >58 mL/minNormal 50-59 yrs >51 mL/min Normal 60-69 yrs >45 mL/min Rinsie20-27 yrs >39 mL/min Normal 80 and above >32 mL/min NormalLipase: (MARISABEL: 02/07/2020 19:01) ( [facility] 02/07/2020 20:03) Final results Test Result Flag [...] Negat 5 Clinical Report - Physicians/Mid Levels [facility] Emergency Department [address] [place] [address] Phone #: ext- [phone] 02/07/2020 18:07 Patient: PIPER LICEA Sex: M : 1970 Age: 49y UROBILINOGEN NOR (less than 1.0 MICROSCOPIC Not Indicate Lactic Acid: (MARISABEL: 02/07/2020 19:01) ( [facility] 02/07/2020 19:19) Final results Test Result Flag [...] Martinez resutjuan diego. Reviewed results. Contacted surgon gas controller (Dr. Meeks); informed of pt, informed that Dr. Richardson had done the surgery yesterday. Sts that not gas controller and that Dr. Richardson is covering. Understood [...] and pain meds. Infomred I will review STAMP REDEMPTION CLERK and agrees. Sts that he will see [...] AM. 6 Clinical Report - Physicians/Mid Levels [facility] Emergency Department [address] [place] [address] Phone #: ext- [phone] 02/07/2020 18:07 Patient: PIPER LICEA Sex: M : 1970 Age: 49yOrdered abx.22:18 02/07/20. Disucssed with attending and she indicates to admit pt for observation and for continued IVabx. ? early infectoion vs post op changes and so soon after surgery (yesterday) It does appears to beworsening; lives by himself. Contacted hospitalist to discuss.Reviewed STAMP REDEMPTION CLERK.This report was requested by: Israel Puri Reference #: [id number]' PrescriptionsPatient Name: Piper LiceaBirth Date: 1970Address: [address], [place] [address]Uqh: MaleRx Written Rx Dispensed Drug Quantity Days Supply Prescriber Name Payment Method Blsvegfdr21/02/2020 08/10/2019 alprazolam 0.5 mg tablet 30 30 FigmaMaryanne baugh [employer], [facility] #07/13/2019 alprazolam 0.5 mg tablet 30 30 Maryanne Ashby [employer], [employer] #07/03/2019 testosterone cyp 200 mg/ml 4ml [address] [facility] #06/13/2019 alprazolam 0.5 mg tablet 60 30 AshMaryanne baugh [employer], [employer] #05/16/2019 alprazolam 0.5 mg tablet 60 30 [facility], [facility] #05/02/2019 testosterone cyp 200 mg/ml 4ml 30 Yonathan, Kelli A [facility], [employer] #11104/20/2019 alprazolam 0.5 mg tablet 60 30 [place], Maryanne M [employer], [employer] #11003/21/2019 testosterone cyp 200 mg/ml 4ml 30 [facility], Kelli A [employer] [facility], [facility] #11003/21/2019 alprazolam 0.5 mg tablet 60 30 [place], Maryanne [employer], [employer] #10902/23/2019 alprazolam 0.5 mg tablet 60 30 [place], Maryanne [employer], [employer] #10902/16/2019 testosterone cyp 200 mg/ml 4ml 30 [facility], [employer] [facility] #1Patient Name: Piper LiceaBirth Date: 1970Address: [address] [address]Zur: MaleRx Written Rx Dispensed Drug Quantity Days Supply Prescriber Name Payment Method Shspxvcai54/25/2020 01/24/2020 alprazolam 0.5 mg tablet 30 30 [facility], [facility]#01/01/2020 alprazolam 0.5 mg tablet 30 30 [facility], [facility]#1 7 Clinical Report - Physicians/Mid Levels [facility] Emergency Department [address] [place] [address] Phone #: [phone] 02/07/2020 18:07 Patient: PIPER LICEA Sex: M : 1970 Age: 49y 11/29/2019 11/30/2019 alprazolam 0.5 mg tablet 30 30 Jacquelin Erickson MD [facility], [facility] #1 11/29/2019 11/30/2019 testosterone cyp 200 mg/ml 4ml 30 Jacquelin Erickson MD [facility], [facility] #1 10/31/2019 11/02/2019 alprazolam 0.5 mg tablet 30 30 [place] 10/19/2019 10/24/2019 testosterone cyp 200 mg/ml 4ml 30 Yonathan, [facility], [facility] #1 09/04/2019 09/11/2019 alprazolam 0.5 mg tablet 30 30 Ashcroft, Maryanne M [facility], [facility] #1 08/21/2019 08/23/2019 testosterone cyp 200 mg/ml 4ml 30 Yonathan, [facility], [facility] #1 22:31 02/07/20. Contact hosptilist and [...] Name Value Range Interpretation Code Description Data Genvea rce(s) Supporting Document(s) ID Date Data Source [id number] 02/08/2020 07:10:00 AM EDT [facility] Name Value Range Interpretation Code Description Data [place] rce(s) Supporting Document(s) BASIC METABOLIC PANEL [facility] BASIC METABOLIC PANEL Sodium [Moles/volume] in Serum or Plasma 140 mEq/L 134 - 153 [facility] Potassium [Moles/volume] in Serum or Plasma 4.6 mEq/L 3.6 - 5.0 [facility] Chloride [Moles/volume] in Serum or Plasma 105 mEq/L 98 - 107 [facility] Carbon dioxide, total [Moles/volume] in Serum or Plasma 28 MEQ/L 22 - 30 [facility] Glucose [Mass/volume] in Serum or Plasma 79 MG/DL 65 - 110 [facility] BUN 8 MG/DL 7 - 21 [facility] Creatinine [Mass/volume] in Serum or Plasma 0.8 MG/DL 0.7 - 1.5 [facility] BUN/CREAT 10 8 - 27 [facility] Calcium [Mass/volume] in Serum or Plasma 8.8 MG/DL 8.4 - 10.2 [facility] Anion gap 3 in Serum or Plasma 7.0 mmol/L 8.0 - 16.0 L [facility]GE 49 yrs [facility] AFR AMER GFR >60 mL/min [facility] Ho spital NON-AA GFR >60 mL/min [facility] ital Male GFR Inter prentation 20-49 yrs [...] >32 mL/min Normal ID Date Data Source [id number] 02/08/2020 06:48:00 AM EDT [facility] Name Value Range Interpretation Code Description Data [place] rce(s) Supporting Document(s) CBC W/AUTOMATED DIFF [facility] COMPLETE BLOOD COUNT Leukocytes [#/volume] in Blood by Automated count 10.3 10^3/uL 4.2 - 11.0 [facility] Erythrocytes [#/volume] in Blood by Automated count 5.17 10^6/uL 4. 50 - 6.30 [facility] Hemoglobin [Mass/volume] in Blood 15.7 g/dL 14.0 - 16.0 [facility] Hematocrit [Volume Fraction] of Blood by Automated count 45.9 % 4 1.0 - 51.0 [facility] Erythrocyte mean corpuscular volume [Entitic volume] by Auto mated count 88.8 fL 80.0 - 94.0 [facility] Erythrocyte mean corpuscular hemoglobin [Entitic mass] by Automated count 30.4 pg 27.0 - 34.0 [facility] Erythrocyte mean corpuscular hemoglobin concentration [Mass/volume] by Automated count 34.2 g/dL 31.0 - 36.0 [facility] Erythrocyte distribution width [Ratio] by Automated count 13.2 % 11.5 - 14.8 [facility] Platelets [#/volume] in Blood by Automated count 259 10^3/uL 150 - 45 0 [facility] Platelet mean volume [Entitic volume] in Blood by Automated count 9.7 fL 7.4 - 10.4 [facility] Neutrophils/100 leukocytes in Blood by Automated count 48.8 % 37. 0 - 80.0 [facility] Lymphocytes/100 leukocytes in Blood by Manual count 40.7 % 25.0 - 40.0 H [facility] Monocytes/100 leukocytes in Blood by Automated count 9.6 % 3.0 - 8.0 H [facility] Eosinophils/100 leukocytes in Blood by Automated count 0.4 % 0.0 - 7.0 [facility] Basophils/100 leukocytes in Blood by Automated count 0.3 % 0.0 - 2.0 [facility] %IG 0.2 % 0.0 - 0.0 [facility] 0.0 % 0.0 - 0.0 [facility] Neutrophils [#/volume] in Blood by Automated count 5.05 10^3/uL 2.00 - 6.90 [facility] Lymphocytes [#/volume] in Blood by Automated count 4.21 10^3/uL 0.60 - 3.40 H [facility] Monocytes [#/volume] in Blood by Automated count 0.99 10^3/uL 0.00 - 0.90 H [facility] Eosinophils [#/volume] in Blood by Automated count 0.04 10^3/uL 0.00 - 0.70 [facility] Basophils [#/volume] in Blood by Automated count 0.03 10^3/uL 0.00 - 0.20 [facility] #IG 0.02 10^3/uL 0.00 - 0.10 [facility] H ospital #NRBC 0.00 10^3/uL 0.00 - 0.00 [facility]sp[facility] MANUAL DIFF NOT INDICATED [facility] RBC MORPH NOT INDICATED [facility] Ho spital ID Date Data Source [id number] 02/07/2020 08:02:00 PM EDT [facility] Name Value Range Interpretation Code Description Data [place] rce(s) Supporting Document(s) URINALYSIS [facility] Hospi meena URINALYSIS SOURCE Clean Catch [facility] ital COLOR yellow NORMAL: Yellow [facility] H [facility]spital CLARITY clear NORMAL: Clear [facility] spital Specific gravity of Urine by Test strip 1.005 1.001 - 1.030 [facility] pH 7 5 - 9 [facility] Glucose [Mass/volume] in Urine by Test strip NORM NORMAL: Negat [facility] Bilirubin.total [Presence] in Urine by Test strip NEG NORMAL: Negative [facility] Ketones [Presence] in Urine by Test strip 5 NORMAL: Negative [facility] Protein [Mass/volume] in Urine by Test strip NEG NORMAL: Negat [facility] Nitrite [Presence] in Urine by Test strip NEG NORMAL: Negative [facility] BLOOD NEG NORMAL: Negative [facility] Leukocyte esterase [Presence] in Urine by Test strip NEG PHILLIP L: Negative [facility] Urobilinogen [Mass/volume] in Urine by Test strip NOR less ani n 1.0 mg/dL [facility] MICROSCOPIC Not Indicate [facility] H ospital ID Date Data Source [id number] 02/14/2020 06:37:00 AM EDT [facility] [id number] STAIN = GRAM POSITIVE SHAISTA CI IN DDNANBTF93/11/20 1137 CALLED TO BYRON RAMAN, RESULTS READ BACK02/14/20 0636 CALLED TO NANETTE Sanchez BY LAMINE, RESULTS READBACKMICROCOCCUS & RELATED SPECIES Name Value Range Interpretation Code Description Data [facility] rce(s) Supporting Document(s) Bacteria identified in Blood by Culture [facility] NO GROWTH AFTER 5 DAYS ID Date Data Source [id number] 02/09/2020 11:39:00 AM EDT [facility] 02/09/20 1137 CALLED TO BYRON Husain BY [...] rce(s) Supporting Document(s) ID Date Data Source [id number] 02/14/2020 11:42:00 AM EDT [facility] Name Value Range Interpretation Code Description Data [facility] rce(s) Supporting Document(s) CULTURE BLOOD [facility] Ho spital _CULTURE BLOOD_{ PRELIM GROWTH OF GRAM POSITIVE COCCI IN CLUSTERS TEST PERFORMED AT [facility] [address] [place] [address] [facility]# [id number] SEE SCANNED REPORTCALLED [place]h [place] ON [facility]U 02/09/20 1145 CM ID Date Data Source [id number] 02/07/2020 08:03:00 PM EDT [facility] Name Value Range Interpretation Code Description Data [place] rce(s) Supporting Document(s) Lipase [Enzymatic activity/volume] in Serum or Plasma 22 U/L 13 - 60 [facility] ID Date Data Source [id number] 02/07/2020 08:03:00 PM EDT [facility] Name Value Range Interpretation Code Description Data [place] rce(s) Supporting Document(s) COMPREHENSIVE METABOLIC PANEL [facility] COMPREHENSIVE METABOLIC PANEL Sodium [Moles/volume] in Serum or Plasma 133 mEq/L 134 - 153 L [facility] Potassium [Moles/volume] in Serum or Plasma 3.7 mEq/L 3.6 - 5.0 [facility] Chloride [Moles/volume] in Serum or Plasma 96 mEq/L 98 - 107 L [facility] Carbon dioxide, total [Moles/volume] in Serum or Plasma 23 MEQ/L 22 - 30 [facility] Glucose [Mass/volume] in Serum or Plasma 99 MG/DL 65 - 110 [facility] BUN 8 MG/DL 7 - 21 [facility] Creatinine [Mass/volume] in Serum or Plasma 0.7 MG/DL 0.7 - 1.5 [facility] BUN/CREAT 11 8 - 27 [facility] Protein [Mass/volume] in Serum or Plasma 6.0 G/DL 6.3 - 8.2 L [facility] Albumin [Mass/volume] in Serum or Plasma 4.5 G/DL 3.9 - 5.0 [facility] Globulin [Mass/volume] in Serum by calculation 1.5 GM/DL 2.4 - 3.2 L [facility] A/G RATIO 3.0 0.8 - 2.0 H [facility] Calcium [Mass/volume] in Serum or Plasma 9.4 MG/DL 8.4 - 10.2 [facility] Bilirubin.total [Mass/volume] in Serum or Plasma <0.7 MG/DL 0.2 - 1.3 [facility] Alkaline phosphatase [Enzymatic activity/volume] in Serum or Plasma 56 U/L 38 - 126 [facility] Aspartate aminotransferase [Enzymatic activity/volume] in Serum or Plasma 26 U/L 5 - 40 [facility] Alanine aminotransferase [Enzymatic activity/volume] in Seru m or Plasma 25 U/L 7 - 56 [facility] Anion gap 3 in Serum or Plasma 14.0 mmol/L 8.0 - 16.0 [facility] AGE 49 yrs [facility] Hospit al NON-AA GFR >60 mL/min [facility] ital AFR AMER GFR >60 mL/min [facility] Ho spital Male GFR In terprentation [...] >32 mL/min Normal ID Date Data Source [id number] 02/07/2020 07:56:00 PM EDT [facility] Name Value Range Interpretation Code Description Data [place] rce(s) Supporting Document(s) CBC W/AUTOMATED DIFF [facility] COMPLETE BLOOD COUNT Leukocytes [#/volume] in Blood by Automated count 12.4 10^3/uL 4.2 - 11.0 H [facility] Erythrocytes [#/volume] in Blood by Automated count 5.27 10^6/uL 4. 50 - 6.30 [facility] Hemoglobin [Mass/volume] in Blood 16.1 g/dL 14.0 - 16.0 H [facility] Hematocrit [Volume Fraction] of Blood by Automated count 45.9 % 4 1.0 - 51.0 [facility] Erythrocyte mean corpuscular volume [Entitic volume] by Auto mated count 87.1 fL 80.0 - 94.0 [facility] Erythrocyte mean corpuscular hemoglobin [Entitic mass] by Automated count 30.6 pg 27.0 - 34.0 [facility] Erythrocyte mean corpuscular hemoglobin concentration [Mass/volume] by Automated count 35.1 g/dL 31.0 - 36.0 [facility] Erythrocyte distribution width [Ratio] by Automated count 13.0 % 11.5 - 14.8 [facility] Platelets [#/volume] in Blood by Automated count 245 10^3/uL 150 - 45 0 [facility] Platelet mean volume [Entitic volume] in Blood by Automated count 10.2 fL 7.4 - 10.4 [facility] Neutrophils/100 leukocytes in Blood by Automated count 61.3 % 37. 0 - 80.0 [facility] Lymphocytes/100 leukocytes in Blood by Manual count 28.6 % 25.0 - 40.0 [facility] Monocytes/100 leukocytes in Blood by Automated count 9.5 % 3.0 - 8.0 H [facility] Eosinophils/100 leukocytes in Blood by Automated count 0.2 % 0.0 - 7.0 [facility] 0.2 %IG 0.2 % 0.0 - 0.0 H [facility] %NRBC 0.0 % 0.0 - 0.0 [facility] Neutrophils [#/volume] in Blood by Automated count 7.58 10^3/uL 2.00 - 6.90 H [facility] Lymphocytes [#/volume] in Blood by Automated count 3.53 10^3/uL 0.60 - 3.40 H [facility] Monocytes [#/volume] in Blood by Automated count 1.18 10^3/uL 0.00 - 0.90 H [facility] Eosinophils [#/volume] in Blood by Automated count 0.02 10^3/uL 0.00 - 0.70 [facility] Basophils [#/volume] in Blood by Automated count 0.02 10^3/uL 0.00 - 0.20 [facility] #IG 0.03 10^3/uL 0.00 - 0.10 [facility] ospital #NRBC 0.00 10^3/uL 0.00 - 0.00 [facility] ospital MANUAL DIFF SEE BELOW [facility] ital Segmented neutrophils/100 leukocytes in Blood by Manual count 63 % 37 - 80 [facility] BAND 0 % 0 - 5 [facility] %LYMPH 27 % 25 - 40 [facility] %MONO 10 % 3 - 8 H [facility] %EOS 0 % 0 - 7 [facility] 0 Metamyelocytes/100 leukocytes in Blood by Manual count 0 % [facility] Myelocytes/100 leukocytes in Blood by Manual count 0 % [facility] Promyelocytes/100 leukocytes in Blood by Manual count 0 % [facility] Blasts/100 leukocytes in Blood by Manual count 0 % [facility] SAMANTHA LYM 0 % [facility] Nucleated erythrocytes/100 erythrocytes in Blood by Manual count 0 % [facility] RBC MORPH NOT INDICATED [facility] Ho spital ID Date Data Source [id number] 02/07/2020 07:35:00 PM EDT [facility] Name Value Range Interpretation Code Description Data [place] rce(s) Supporting Document(s) TROPONIN T <0.01 NG/ML 0.00 - 0.10 [facility] ospital TROPONIN T0.1 ng/ml Recommended as the c linical threshold value forTroponin T. ID Date Data Source [id number] 02/07/2020 07:35:00 PM EDT [facility] Name Value Range Interpretation Code Description Data [place] rce(s) Supporting Document(s) Prothrombin time (PT) 13.3 SECONDS 11.0 - 15.5 [facility] INR in Platelet poor plasma by Coagulation assay 1.00 0.93 - 1. 23 [facility] \\BLDo\\INR INTERPRETATION\\BLDx\\ Therapeutic range for Coumadin and related oral anticoagulants. - International Normalized Ratio (INR): 2.0 - 3.0 for Venous Thrombosis, Pulmonary Embolus, Tissue heart valves, Acute GA, Atrial Fibrillation, Valvular heart disease and recurrent Systemic Embolism. -International Normalized Ratio (INR): 2.5 - 3.5 for Mechanical Prosthetic valve. ID Date Data Source [id number] 02/07/2020 07:19:00 PM EDT [facility] Name Value Range Interpretation Code Description Data [place] rce(s) Supporting Document(s) Lactate [Moles/volume] in Serum or Plasma 1.5 MMOL/L 0.2 - 2.2 [facility] ID Date Data Source [id number] 02/14/2020 11:41:00 AM EDT [facility] Name Value Range Interpretation Code Description Data [place] rce(s) Supporting Document(s) CULTURE BLOOD [facility] _CULTURE BLOOD_ [place] [address] CLIA# [id number] SEE SCANNED REPORT{ PRELIM ID Date Data Source [id number] 02/06/2020 03:23:00 PM EDT [facility] Name Value Range Interpretation Code Description Data [place] rce(s) Supporting Document(s) SARS coronavirus 2 RNA [facility] This lab was ordered by [facility] stephanie and reported by [facility]. ID Date Data Source [id number] 02/08/2020 11:21:00 AM EDT [facility] Name Value Range Interpretation Code Description Data [place] rce(s) Supporting Document(s) SARS-CoV-2, RICARDO Not Detected Not Detected [facility] This nucleic acid amplification test was developed and its performancecharacteristics determined by [facility]. Nucleic acidamplification tests include PCR and [...] in this assay. ID Date Data Source [id number] 02/06/2020 04:03:00 PM EDT [facility] Name Value Range Interpretation Code Description Data [place] rce(s) Supporting Document(s) Sodium [Moles/volume] in Serum or Plasma 135 mEq/L 134 - 153 [facility] Potassium [Moles/volume] in Serum or Plasma 4.2 mEq/L 3.6 - 5.0 [facility] Chloride [Moles/volume] in Serum or Plasma 98 mEq/L 98 - 107 [facility] Carbon dioxide, total [Moles/volume] in Serum or Plasma 27 MEQ/L 22 - 30 [facility] ID Date Data Source [id number] 02/06/2020 03:33:00 PM EDT [facility] Name Value Range Interpretation Code Description Data [place] rce(s) Supporting Document(s) CBC NO DIFF [facility] ital COMPLETE BLOOD COUNT Leukocytes [#/volume] in Blood by Automated count 8.8 10^3/uL 4.2 - 1 1.0 [facility] Erythrocytes [#/volume] in Blood by Automated count 5.38 10^6/uL 4. 50 - 6.30 [facility] Hemoglobin [Mass/volume] in Blood 16.5 g/dL 14.0 - 16.0 H [facility] Hematocrit [Volume Fraction] of Blood by Automated count 47.8 % 4 1.0 - 51.0 [facility] Erythrocyte mean corpuscular volume [Entitic volume] by Auto mated count 88.8 fL 80.0 - 94.0 [facility] Erythrocyte mean corpuscular hemoglobin [Entitic mass] by Automated count 30.7 pg 27.0 - 34.0 [facility] Erythrocyte mean corpuscular hemoglobin concentration [Mass/volume] by Automated count 34.5 g/dL 31.0 - 36.0 [facility] Erythrocyte distribution width [Ratio] by Automated count 13.2 % 11.5 - 14.8 [facility] Platelets [#/volume] in Blood by Automated count 240 10^3/uL 150 - 45 0 [facility] Platelet mean volume [Entitic volume] in Blood by Automated count 9.6 fL 7.4 - 10.4 [facility] ID Date Data Source [id number] 02/05/2020 11:46:00 PM EDT [facility] [address] [place], [place] [id number] [phone] NAME SEX PT STATUS ACCOUNT NUMBER PIPER [facility] [id number] ORDERING PHYSICIAN LOCATION MEDICAL RECORD NO. Skip Rutherford MD ER [id number] ATTENDING PHYSICIAN DATE OF DATE OF EXAM/TIME [...] rce(s) Supporting Document(s) ID Date Data Source [id number] 02/05/2020 09:45:00 PM EDT [facility] Special Instructions: Lab may order repe at test if initial test elevatedPhysician If elevated, reflex second test in 4-6 hrs Name Value Range Interpretation Code Description Data [place] rce(s) Supporting Document(s) Leukocytes [#/volume] in Blood by Automated count 9.0 10*3/uL 4.45-10 .71 N [facility] Erythrocytes [#/volume] in Blood by Automated count 5.38 10*6/uL 4.3- 6.1 N [facility] Hemoglobin [Moles/volume] in Blood 16.6 g/dL 13-18 N [facility] Hematocrit [Volume Fraction] of Blood by Automated count 47.1 % 4 2-52 N [facility] Erythrocyte mean corpuscular volume [Ent itic volume] in Cord blood by Automated count 87.5 fL 80-96 N [facility] ital Erythrocyte mean corpuscular hemoglobin [Entitic mass] by Automated count 30.9 pg 27-31 [facility] Eryth[facility] mean corpuscular hemoglobin concentration [Mass/volume] in Cord blood 35.2 g/dL 33-37 N [facility] ital Erythrocyte distribution width [Entitic volume] by Automated count 13 % 11-15 N [facility] Platelets [#/volume] in Blood by Automated count 246 10*3/uL 130-472 N [facility] Platelet mean volume [Entitic volume] in Blood 9.5 fL 9.1-13.1 N [facility] Neutrophils/100 leukocytes in Blood by Automated count 55.4 % 41- 77 N [facility] Neutrophils [#/volume] in Blood by Automated count 5.0 U 1.7-7.6 N [facility] Lymphocytes/100 leukocytes in Blood by Automated count 36.9 % 14- 46 N [facility] Lymphocytes [#/volume] in Blood by Automated count 3.3 U 0.6-4.6 N [facility] Monocytes/100 leukocytes in Blood by Automated count 6.6 % 4-12 N [facility] Monocytes [#/volume] in Blood by Automated count 0.6 U 0.2-1.2 N [facility] Eosinophils/100 leukocytes in Blood by Automated count 0.6 % 0-7 N [facility] Eosinophils [#/volume] in Blood by Automated count 0.1 U 0.0-0.5 N [facility] Basophils/100 leukocytes in Blood by Automated count 0.3 % 0.4-1.3 Below low normal [facility] Basophils [#/volume] in Blood by Automated count 0.0 U 0.0-0.2 [facility] NUCLEATED RED BLOOD CELL 0 % [facility] NUCLEATED RED BLOOD CELL# 0 U [facility] Immature granulocytes [Presence] in Blood by Automated count 0-2 N [facility] Immature granulocytes [#/volume] in Blood by Automated count 0.0 U 0-0.1 N [facility] Manual Differential panel - Blood NO [facility] ID Date Data Source [id number] 02/05/2020 10:07:00 PM EDT [facility] Special Instructions: Lab may order repe at test if initial test elevatedPhysician If elevated, reflex second test in 4-6 hrs Name Value Range Interpretation Code Description Data [place] rce(s) Supporting Document(s) Prothrombin Time (Patient) 11.2 s 9.6-12.3 N [facility] INR 1.1 0.9-1.1 [facility] THE INR IS OPERATIONALLY DEFINED FOR GILMA SH PLASMA FROMPATIENTS STABILIZED ON ORAL ANTICOAGULANTS.ROUTINE ANTICOAGULANT THERAPY 2.0-3.0RECURRENT SYSTEMIC EMBOLISM/HEART VALVE REPLACEMENT 2.5-3.5 aPTT.lupus sensitive (LA screen) 26.4 s 22.7-31.6 N [facility] ID Date Data Source [id number] 02/05/2020 10:19:00 PM EDT [facility] Special Instructions: Lab may order repe at test if initial test elevatedPhysician If elevated, reflex second test in 4-6 hrs Name Value Range Interpretation Code Description Data [place] rce(s) Supporting Document(s) Lactic w Rfx (if elevated) 0.8 mmol/L 0.5-2.2 N [facility] ID Date Data Source [id number] 02/05/2020 10:19:00 PM EDT [facility] Special Instructions: Lab may order repe at test if initial test elevatedPhysician If elevated, reflex second test in 4-6 hrs Name Value Range Interpretation Code Description Data [place] rce(s) Supporting Document(s) Urea nitrogen [Mass/volume] in Serum or Plasma 8 mg/dL 9-23 Below low normal [facility] Sodium [Moles/volume] in Serum or Plasma 137 mmol/L 132-146 [facility] Potassium [Moles/volume] in Serum or Plasma 3.7 mmol/L 3.5-5.5 [facility] Chloride [Moles/volume] in Serum or Plasma 105 mmol/L 99-109 [facility] Carbon dioxide, total [Moles/volume] in Serum or Plasma 25 mmol/L 20 -31 N [facility] Anion gap in Serum or Plasma 11 mmol/L 8-16 [facility] Glucose [Mass/volume] in Serum or Plasma 92 mg/dL 74-106 [facility] Creatinine 0.7 mg/dL 0.5-1.1 [facility] Glomerular filtration rate/1.73 sq M.pre dicted [Volume Rate/Area] in Serum or Plasma Greater Than 60 ABOVE 60 [facility] Alanine aminotransferase [Enzymatic acti vity/volume] in Serum or Plasma by With P-5'-P 36 U/L 10-49 N [facility] ital Aspartate aminotransferase [Enzymatic ac tivity/volume] in Serum or Plasma by With P-5'-P 22 U/L 0-33 N [facility] pital Alkaline phosphatase [Enzymatic activity/volume] in Serum or Plasma 55 U/L 45-129 N [facility] Calcium [Mass/volume] in Serum or Plasma 9.4 mg/dL 8.5-10.1 N [facility] Bilirubin.total [Mass/volume] in Serum or Plasma 0.7 mg/dL 0.3-1.2 N [facility] Albumin [Mass/volume] in Serum or Plasma by Bromocresol purple (BCP) dye binding method 3.9 g/dL 3.2-4.8 N [facility] ital Protein [Mass/volume] in Serum or Plasma 6.6 g/dL 5.7-8.2 [facility] ID Date Data Source [id number] 02/05/2020 09:19:00 PM EDT [facility] ED Physician Documentation NAME: PIPER LICEA : 1970 AGE: 49 MR#: [id number] SERVICE DATE: 02/05/[address]: Skip Rutherford MD PRIMARY CARE DR: Kelli Mcmanus ROOM#: HPI (Adult, General) General Chief Complaint: GI Stated Complaint: ABD PAIN, BACK PAIN Resident [facility], travel outisde home, exposure to hot [...] Hx/Date of Tetanus, Diphtheria Vaccination: No (UNKNOWN) [facility] Medical History (Updated 02/01/20 @ 19:38 by [...] Appearance Clear, Urine pH 7.0, Ur Specific [place] 1.008,Urine Protein Negative, Urine Ketones Trace A, [...] % (Auto) 55.4, Lymph % (Auto) 36.9, Bailey % (Auto) 6.6, Eos % (Auto) 0.6, Baso % (Auto) 0.3 L, Lymph # (Auto) 3.3, Abs Immat Gran (auto) 0.0, Add Manual Diff No, Absolute Neutrophils 5.0, Monocytes # 0.6, Absolute Eosinophils 0.1, Absolute Basophils 0.0 02/05/20 21:35: PT 11.2, INR 1.1, PTT ([place]) 26.4 02/05/20 21:35: Sodium 137, Potassium 3.7, [...] rce(s) Supporting Document(s) ID Date Data Source [id number] 02/05/2020 10:00:00 PM EDT [facility] Reason for ordering culture: Abnormal fi ndings UAMethod of Collection:: Voided Name Value Range Interpretation Code Description Data [place] rce(s) Supporting Document(s) Color of Urine [facility] Appearance of Urine CLEAR [facility] pH of Urine by Test strip 7.0 5-8 [facility] Specific gravity of Urine by Refractometry 1.008 1.005-1.030 [facility] Leukocyte esterase [Presence] in Urine by Test strip NEGAT JALEN [facility] Nitrite [Presence] in Urine by Test strip NEGATIVE [facility] Protein [Presence] in Urine by Test strip NEGATIVE [facility] Glucose [Mass/volume] in Urine by Automated test strip NEGATIVE NEG ATIVE [facility] Ketones [Presence] in Urine by Test strip NEGATI VE Abnormal (applies to non- numeric results) [facility] Urobilinogen [Presence] in Urine 0.2-1 EU/dl [facility] Bilirubin.total [Presence] in Urine by Automated test strip NEGATIVE [facility] Erythrocytes [#/volume] in Urine by Test strip NEGATIVE NEGATIVE [facility] URINE MICROSCOPIC? (CIF) NO [facility] ID Date Data Source [id number] 02/01/2020 03:30:00 PM EDT [facility] Name Value Range Interpretation Code Description Data [place] rce(s) Supporting Document(s) Leukocytes [#/volume] in Blood by Automated count 10.0 10*3/uL 4.45-1 0.71 N [facility] Erythrocytes [#/volume] in Blood by Automated count 5.61 10*6/uL 4.3- 6.1 N [facility] Hemoglobin [Moles/volume] in Blood 17.4 g/dL 13-18 N [facility] Hematocrit [Volume Fraction] of Blood by Automated count 48.4 % 4 2-52 N [facility] Erythrocyte mean corpuscular volume [Ent itic volume] in Cord blood by Automated count 86.3 fL 80-96 N [facility] ital Erythrocyte mean corpuscular hemoglobin [Entitic mass] by Automated count 31.0 pg 27-31 [facility] mean corpuscular hemoglobin concentration [Mass/volume] in Cord blood 36.0 g/dL 33-37 N [facility] ital Erythrocyte distribution width [Entitic volume] by Automated count 13 % 11-15 N [facility] Platelets [#/volume] in Blood by Automated count 256 10*3/uL 130-472 N [facility] Platelet mean volume [Entitic volume] in Blood 9.5 fL 9.1-13.1 N [facility] Neutrophils/100 leukocytes in Blood by Automated count 55.4 % 41- 77 N [facility] Neutrophils [#/volume] in Blood by Automated count 5.6 U 1.7-7.6 N [facility] Lymphocytes/100 leukocytes in Blood by Automated count 35.2 % 14- 46 N [facility] Lymphocytes [#/volume] in Blood by Automated count 3.5 U 0.6-4.6 N [facility] Monocytes/100 leukocytes in Blood by Automated count 8.5 % 4-12 N [facility] Monocytes [#/volume] in Blood by Automated count 0.9 U 0.2-1.2 N [facility] Eosinophils/100 leukocytes in Blood by Automated count 0.5 % 0-7 N [facility] Eosinophils [#/volume] in Blood by Automated count 0.1 U 0.0-0.5 N [facility] Basophils/100 leukocytes in Blood by Automated count 0.3 % 0.4-1.3 Below low normal [facility] Basophils [#/volume] in Blood by Automated count 0.0 U 0.0-0.2 N [facility] NUCLEATED RED BLOOD CELL 0 % [facility] NUCLEATED RED BLOOD CELL# 0 U [facility] Immature granulocytes [Presence] in Blood by Automated count 0-2 N [facility] Immature granulocytes [#/volume] in Blood by Automated count 0.0 U 0-0.1 N [facility] Manual Differential panel - Blood NO [facility] ID Date Data Source [id number] 02/01/2020 03:59:00 PM EDT [facility] Name Value Range Interpretation Code Description Data [place] rce(s) Supporting Document(s) Urea nitrogen [Mass/volume] in Serum or Plasma 6 mg/dL 9-23 Below low normal [facility] Sodium [Moles/volume] in Serum or Plasma 134 mmol/L 132-146 N [facility] Potassium [Moles/volume] in Serum or Plasma 4.0 mmol/L 3.5-5.5 [facility] Chloride [Moles/volume] in Serum or Plasma 101 mmol/L 99-109 N [facility] Carbon dioxide, total [Moles/volume] in Serum or Plasma 28 mmol/L 20 -31 N [facility] Anion gap in Serum or Plasma 9 mmol/L 8-16 [facility] Glucose [Mass/volume] in Serum or Plasma 92 mg/dL 74-106 N [facility] Creatinine 0.9 mg/dL 0.5-1.1 [facility] Glomerular filtration rate/1.73 sq M.pre dicted [Volume Rate/Area] in Serum or Plasma Greater Than 60 ABOVE 60 [facility] Calcium [Mass/volume] in Serum or Plasma 9.9 mg/dL 8.5-10.1 [facility] ID Date Data Source [id number] 02/01/2020 02:32:00 PM EDT [facility] Name: PIPER LICEA : 1970 Age: 49 MR#: [id number] Admit Date: 02/01/20 Provider: Naveed Hannon MD [...] pt states has had hernia x 4yrs Home Health Nurse Required: No Is patient in pain?: No [...] Screening Screening Have you traveled outside of [facility] or [facility] in the last 14 days.: No [...] nourished Orientation: alert, awake and oriented x3 [facility] Head: normal to inspection, normocephalic, atraumatic [...] hernia without obstruction or gangrene SNOMED Code(s): 961951781 Category: Surgical Dictated by: <Electronically signed by Naveed Hannon > Naveed Hannon 02/01/201939 Naveed Hannon SIGNATURE DA Report Cosigners: D: ROBINSON 02/01/20 1432 T: HARRIS 02/01/20 1432 CC: Name Value Range Interpretation Code Description Data [place] rce(s) Supporting Document(s) ID Date Data Source [id number] 12/20/2019 10:21:00 AM EDT [facility] Patient Name: PIPER LICEA DO B: 1970 Sex: M Pt Unit #: [id number] Location:[facility] Provider: Visit Date/Time: 12/20/19 Primary Insurance: SECURE [...] mole. But has changed and came back. Capacity Management Specialist added another nasal spray with flonase but [...] Screening Screening Have you traveled outside of [facility] or [facility] in the last 14 days.: No Has patient experienced coronavirus symptoms: No [facility] Social History (Updated 12/20/19 @ 10:22 by [...] Other: Right upper chest/shoulder region. 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 On top of this is a triple nodule raised darker brown nevi. Non-tender. Assessment Plan Assessment Plan (1) Suspicious nevus: Status: Acute Comment: Referred to derm for biopsy. Code(s): D22.9 - Melanocytic nevi, unspecified SNOMED Code(s): 498763587 Category: Medical Orders: Referrals: Dermatology Referral Orders Other Medications: New: fluticasone propionate 50 mcg/actuation (Flonase Allergy Relief) administer into each nostril 2 sprays intranasal QDAY 1 unit 5RF Electronically Signed By: <Electronically signed by Kelli Mcmanus NP> Date/Time Signed: 12/20/19 1051 Name Value Range Interpretation Code Description Data [place] rce(s) Supporting Document(s) ID Date Data Source [id number] 10/19/2019 09:57:00 AM EDT [facility] Patient Name: PIPER LICEA DO B: 1970 Sex: M Pt Unit #: [id number] Location:[facility] Provider: Visit Date/Time: 10/19/19 Primary Insurance: [employer] Secondary Insurance: Self Pay Intake Vital Signs [...] Pt would like to be referred to president and cmo for testing. Pt requests a sleep study. He wakes up a lot during the night , tired throughout the day and last night he felt like he could not breathe. Home Health Nurse Required: No Accompanied by: Self / Same [...] Screening Screening Have you traveled outside of [facility] or [facility] in the last 14 days.: No Has patient experienced coronavirus symptoms: No [facility] Social History (Updated 07/12/19 @ 09:52 by [...] Kelli Mcmanus NP: I will refer to president and cmo. He is taking 2 allergy medications already at this point. Testing may be helpful, possible serum injections. (2) Umbilical hernia: Status: Acute Comment: Referral to gen surg. Code(s): K42.9 - Umbilical hernia without obstruction or gangrene SNOMED Code(s): 421879059 Category: Medical Orders: Referrals: General Surgery Referral (3) Sleep apnea: Status: Acute Comment: Referred for sleep study and possible CPAP fitting Code(s): G47.30 - Sleep apnea, unspecified SNOMED Code(s): 91504758 Category: Medical Electronically Signed By: <Electronically signed by Kelli Mcmnaus NP> Date/Time Signed: 10/19/19 1037 Name Value Range Interpretation Code Description Data [place] rce(s) Supporting Document(s) ID Date Data Source [id number] 07/31/2019 11:34:00 AM [facility] Method of Collection:: Voided Name Value Range Interpretation Code Description Data [place] rce(s) Supporting Document(s) Color of Urine [facility] Appearance of Urine CLEAR [facility] pH of Urine by Test strip 8.0 5-8 [facility] Specific gravity of Urine by Refractometry 1.022 1.005-1.030 [facility] Leukocyte esterase [Presence] in Urine by Test strip NEGAT JALEN [facility] Nitrite [Presence] in Urine by Test strip NEGATIVE [facility] Protein [Presence] in Urine by Test strip NEGATIVE [facility] Glucose [Mass/volume] in Urine by Automated test strip NEGATIVE NEG ATIVE [facility] Ketones [Presence] in Urine by Test strip NEGATIVE [facility] Urobilinogen [Presence] in Urine 0.2-1 EU/dl [facility] Bilirubin.total [Presence] in Urine by Automated test strip NEGATIVE [facility] Erythrocytes [#/volume] in Urine by Test strip NEGATIVE NEGATIVE [facility] URINE MICROSCOPIC ADDED NO [facility] ID Date Data Source [id number] 07/31/2019 11:39:00 AM [facility] Method of Collection:: Voided Name Value Range Interpretation Code Description Data [place] rce(s) Supporting Document(s) Leukocytes [#/volume] in Blood by Automated count 7.7 10*3/uL 4.45-10 .71 [facility] Erythrocytes [#/volume] in Blood by Automated count 5.92 10*6/uL 4.3- 6.1 [facility] Hemoglobin [Moles/volume] in Blood 17.9 g/dL 13-18 N [facility] Hematocrit [Volume Fraction] of Blood by Automated count 51.5 % 4 2-52 N [facility] Erythrocyte mean corpuscular volume [Ent itic volume] in Cord blood by Automated count 87.0 fL 80-96 N [facility] ital Erythrocyte mean corpuscular hemoglobin [Entitic mass] by Automated count 30.2 pg 27-31 [facility] Erythrocyte mean corpuscular hemoglobin concentration [Mass/volume] in Cord blood 34.8 g/dL 33-37 N [facility] ital Erythrocyte distribution width [Entitic volume] by Automated count 13 % 11-15 N [facility] Platelets [#/volume] in Blood by Automated count 239 10*3/uL 130-472 N [facility] Platelet mean volume [Entitic volume] in Blood 9.9 fL 9.1-13.1 N [facility] Neutrophils/100 leukocytes in Blood by Automated count 58.8 % 41- 77 N [facility] Neutrophils [#/volume] in Blood by Automated count 4.5 U 1.7-7.6 N [facility] Lymphocytes/100 leukocytes in Blood by Automated count 32.6 % 14- 46 N [facility] Lymphocytes [#/volume] in Blood by Automated count 2.5 U 0.6-4.6 N [facility] Monocytes/100 leukocytes in Blood by Automated count 7.8 % 4-12 N [facility] Monocytes [#/volume] in Blood by Automated count 0.6 U 0.2-1.2 N [facility] Eosinophils/100 leukocytes in Blood by Automated count 0.6 % 0-7 N [facility] Eosinophils [#/volume] in Blood by Automated count 0.1 U 0.0-0.5 N [facility] Basophils/100 leukocytes in Blood by Automated count 0.1 % 0.4-1.3 Below low normal [facility] Basophils [#/volume] in Blood by Automated count 0.0 U 0.0-0.2 N [facility] NUCLEATED RED BLOOD CELL 0 % [facility] NUCLEATED RED BLOOD CELL# 0 U [facility] Immature granulocytes [Presence] in Blood by Automated count 0-2 N [facility] Immature granulocytes [#/volume] in Blood by Automated count 0.0 U 0-0.1 N [facility] Manual Differential panel - Blood NO [facility] ID Date Data Source [id number] 07/31/2019 12:13:00 PM EST [facility] Method of Collection:: Voided Name Value Range Interpretation Code Description Data [place] rce(s) Supporting Document(s) Urea nitrogen [Mass/volume] in Serum or Plasma 17 mg/dL 9-23 N [facility] Sodium [Moles/volume] in Serum or Plasma 138 mmol/L 132-146 N [facility] Potassium [Moles/volume] in Serum or Plasma 4.5 mmol/L 3.5-5.5 N [facility] Chloride [Moles/volume] in Serum or Plasma 105 mmol/L 99-109 N [facility] Carbon dioxide, total [Moles/volume] in Serum or Plasma 28 mmol/L 20 -31 N [facility] Anion gap in Serum or Plasma 10 mmol/L 8-16 N [facility] Glucose [Mass/volume] in Serum or Plasma 97 mg/dL 74-106 N [facility] Creatinine 0.9 mg/dL 0.5-1.1 [facility] Glomerular filtration rate/1.73 sq M.pre dicted [Volume Rate/Area] in Serum or Plasma Greater Than 60 ABOVE 60 [facility] Alanine aminotransferase [Enzymatic acti vity/volume] in Serum or Plasma by With P-5'-P 44 U/L 10-49 [facility] ital Aspartate aminotransferase [Enzymatic ac tivity/volume] in Serum or Plasma by With P-5'-P 20 U/L 0-33 [facility] pital Alkaline phosphatase [Enzymatic activity/volume] in Serum or Plasma 63 U/L 45-129 [facility] Calcium [Mass/volume] in Serum or Plasma 9.1 mg/dL 8.5-10.1 [facility] Bilirubin.total [Mass/volume] in Serum or Plasma 1.0 mg/dL 0.3-1.2 [facility] Albumin [Mass/volume] in Serum or Plasma by Bromocresol purple (BCP) dye binding method 4.1 g/dL 3.2-4.8 [facility] ital Protein [Mass/volume] in Serum or Plasma 7.1 g/dL 5.7-8.2 [facility] ID Date Data Source [id number] 07/31/2019 12:13:00 PM EST [facility] Method of Collection:: Voided Name Value Range Interpretation Code Description Data [place] rce(s) Supporting Document(s) Triglycerides 174 mg/dL 0-150 Above high normal [facility] Cholesterol 212 mg/dL 120-200 Above high normal [facility] HDL Cholesterol 44 mg/dL [facility] HDL Less than 40 mg/dL: Major risk for CHDHDL Greater than 59 mg/dL: Low risk for CHD LDL Cholesterol, Calc 134 mg/dL 0-100 Above high normal [facility] ID Date Data Source [id number] 07/12/2019 09:52:00 AM EST [facility] Patient Name: PIPER LICEA DO B: 1970 Sex: M Pt Unit #: [id number] Location:[facility] Provider: Visit Date/Time: 07/12/19 Primary Insurance: [employer] Secondary Insurance: Self Pay Intake Vital Signs [...] Declines today. Pretest education received and acknowledged [facility] Social History (Updated 07/12/19 @ 09:52 by [...] Safety: Reports Bathroom: Grab bars, Lighting: Adequate, [place]: No throw rugs and Stairs: Handrail available [...] Essential (primary) hypertension Plan - Kelli Yonathan, MOUNTAIN GUIDE: Well controlled. Labs ordered. Follow up in [...] swelling, mass and lump, neck SNOMED Code(s): 502135759 Category: Medical Orders Other Medications: New: loratadine [...] rce(s) Supporting Document(s) ID Date Data Source [id number] 05/29/2019 01:24:00 PM EST [facility] 1 OrderSheet [facility] Emergency Department [address] [place] [address] Phone #: ext- [phone] 05/29/2019 13:00 Patient: [...] rce(s) Supporting Document(s) ID Date Data Source [id number] 05/29/2019 01:24:00 PM EST [facility] 1 Medication Reconciliation Report [facility] Emergency Department [address] [place] [address] Phone #: [phone] 05/29/2019 13:00 Patient: PIPER LICEA Sex: M [...] 15 tablet. Refills: 0. [facility] permitted[facility] [place] [address]. FaxNumber: . -- Antonia Frazier M.D. Name Value Range Interpretation Code Description Data [place] rce(s) Supporting Document(s) ID Date Data Source [id number] 05/29/2019 01:24:00 PM [place] [address] Medication Administration Record [facility] Emergency Department [address] [place] [address] Phone #: ext- [phone] 05/29/2019 13:00 Patient: PIPER LICEA Sex: M [...] rce(s) Supporting Document(s) ID Date Data Source [id number] 05/29/2019 01:24:00 PM [facility] 1 General Instructions [facility] Emergency Department [address] [place] [address] Phone #: ext- [phone] 05/29/2019 13:00 Patient: [...] 15 tablet. Refills: 0. Substitution permitted.Pharmacy - [facility] - [address] [place] [address]. FaxNumber: [phone].Follow-up:Follow up with your healthcare provider in three [...] to mechanical stress, such asworking at a [employer] terminal for long periods or work that requires repetitive motions of the arms orhands. It can also be caused by emotional stress, such as problems on the job or in your personal 2 General Instructions [facility] Emergency Department [address] [place] [address] Phone #: ext- [phone] 05/29/2019 13:00 Patient: [...] any poor work habits. You may use ydsn-eat-mlvirsz pain medicine to control pain, unless another [...] if you don'trespond to home treatment alone.Call [phone] if you have: 3 General Instructions [facility] Emergency Department [address] [place] [address] Phone #: ext- [phone] 05/29/2019 13:00 Patient: [...] your pain worsens, regardless of its location [phone] [employer]. [address] [place] [address]. All rights reserved. This information is not [...] alternate ice and heat. You may use bknm-hps-gqehtth pain medicine to control pain, unless another [...] and run on the 4 General Instructions [facility] Emergency Department [address] [place] [address] Phone #: ext- [phone] 05/29/2019 13:00 Patient: PIPER LICEA Sex: M : 1970 Age: 48y injured leg without pain.Follow-up careFollow up with your healthcare provider, or as advised.When to seek medical adviceCall your healthcare provider right away if any of these occur: The toes of the injured leg become swollen, cold, blue, numb, or tingly Pain or swelling increases [phone] [employer]. [address] [place] [address], [place] [address]. All rights reserved. This information is not [...] rce(s) Supporting Document(s) ID Date Data Source [id number] 05/29/2019 01:24:00 PM EST [facility] 1 Clinical Report - Nurses [facility] Emergency Department [address] [place] [address] Phone #: ext- [phone] 05/29/2019 13:00 Patient: PIPER LICEA Sex: M : 1970 Age: 48yTRIAGEHistorian: patient.Triage time: 13:00 05/29/2019. Acuity: LEVEL 4.Chief Complaint: LEFT LOWER EXTREMITY PAIN.Alert. No acute distress.( pt c/o left hamstring cramp for past 3-4 days, some numbness feeling to back of knee. 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 (last night).SEPSIS SCREEN: NEGATIVE. Negative (no [...] declined. He 2 Clinical Report - Nurses [facility] Emergency Department [address] [place] [address] Phone #: ext- [phone] 05/29/2019 13:00 Patient: [...] August, R.N. Interventions To treatment room. --13:05/29/19 [facility].PHYSICAL ASSESSMENTAmbulatory to room.GENERAL / NEURO / [...] physician notified. 3 Clinical Report - Nurses [facility] Emergency Department [address] [place] [address] Phone #: ext- [phone] 05/29/2019 13:00 Patient: PIPER LICEA [facility]#: [id number] Sex: M : 1970 Age: 48y --13:19 [...] Patient verbalized understanding. Written instructions provided in Tamaz[place]. The patient was discharged by the physician. [...] rce(s) Supporting Document(s) ID Date Data Source [id number] 05/29/2019 01:24:00 PM [facility] 1 Clinical Report - Physicians/Mid Levels [facility] Emergency Department [address] [place] [address] Phone #: ext- [phone] 05/29/2019 13:00 Patient: PIPER LICEA Sex: M [...] Oral. 2 Clinical Report - Physicians/Mid Levels [facility] Emergency Department [address] [place] [address] Phone #: ext- [phone] 05/29/2019 13:00 Patient: [...] 6.30) 3 Clinical Report - Physicians/Mid Levels [facility] Emergency Department [address] [place] [address] Phone #: ext- [phone] 05/29/2019 13:00 Patient: PIPER LICEA Sex: M [...] PROCEDURES 4 Clinical Report - Physicians/Mid Levels [facility] Emergency Department [address] [place] [address] Phone #: ext- [phone] 05/29/2019 13:00 [id number] Sex: M : 1970 Age: 48y Course [...] visit. Do not drive or operate dangerous [place]. CONTROLLED SUBSTANCE WARNINGS. GENERAL WARNINGS: Return or contact your physician immediately if your condition worsens or changes unexpectedly, if not improving as expected, or if other problems arise. Prescription Medications: cyclobenzaprine tablet 10 mg tablet Administer 1 tablet three times a day as needed for pain for 5 days -- Dispense 15 tablet. Refills: 0. Substitution permitted. Pharmacy - [facility] - [address] [place] [address]. . Follow-up: Follow up with your healthcare provider in three days if not better. Call for an appointment. Reason for referral: evaluation and treatment. Summary of care provided to patient, family and follow-up provider via paper. 5 Clinical Report - Physicians/Mid Levels [facility] Emergency De partment [address] [place] [address] Phone #: ext- [phone] 05/29/2019 13:00 Patient: PIPER LICEA Sex: M : 1970 Age: 48y Understanding of the discharge instructions verbalized by patient and family.(Electronically signed by Antonia Frazier M.D. 05/30/2019 06:46) Name Value Range Interpretation Code Description Data [place] rce(s) Supporting Document(s) ID Date Data Source [id number] 05/29/2019 02:17:00 PM EST [facility] Name Value Range Interpretation Code Description Data [place] rce(s) Supporting Document(s) CBC W/AUTOMATED DIFF [facility] COMPLETE BLOOD COUNT Leukocytes [#/volume] in Blood by Automated count 8.3 10^3/uL 4.2 - 1 1.0 [facility] Erythrocytes [#/volume] in Blood by Automated count 5.66 10^6/uL 4. 50 - 6.30 [facility] Hemoglobin [Mass/volume] in Blood 16.8 g/dL 14.0 - 16.0 H [facility] Hematocrit [Volume Fraction] of Blood by Automated count 48.9 % 4 1.0 - 51.0 [facility] Erythrocyte mean corpuscular volume [Entitic volume] by Auto mated count 86.4 fL 80.0 - 94.0 [facility] Erythrocyte mean corpuscular hemoglobin [Entitic mass] by Automated count 29.7 pg 27.0 - 34.0 [facility] Erythrocyte mean corpuscular hemoglobin concentration [Mass/volume] by Automated count 34.4 g/dL 31.0 - 36.0 [facility] Erythrocyte distribution width [Ratio] by Automated count 12.9 % 11.5 - 14.8 [facility] Platelets [#/volume] in Blood by Automated count 233 10^3/uL 150 - 45 0 [facility] Platelet mean volume [Entitic volume] in Blood by Automated count 9.6 fL 7.4 - 10.4 [facility] Neutrophils/100 leukocytes in Blood by Automated count 54.3 % 37. 0 - 80.0 [facility] Lymphocytes/100 leukocytes in Blood by Manual count 36.1 % 25.0 - 40.0 [facility] Monocytes/100 leukocytes in Blood by Automated count 8.0 % 3.0 - 8.0 [facility] Eosinophils/100 leukocytes in Blood by Automated count 0.8 % 0.0 - 7.0 [facility] Basophils/100 leukocytes in Blood by Automated count 0.4 % 0.0 - 2.0 [facility] %IG 0.4 % 0.0 - 0.0 [facility] %NRBC 0.0 % 0.0 - 0.0 [facility] Neutrophils [#/volume] in Blood by Automated count 4.51 10^3/uL 2.00 - 6.90 [facility] Lymphocytes [#/volume] in Blood by Automated count 2.99 10^3/uL 0.60 - 3.40 [facility] Monocytes [#/volume] in Blood by Automated count 0.66 10^3/uL 0.00 - 0.90 [facility] Eosinophils [#/volume] in Blood by Automated count 0.07 10^3/uL 0.00 - 0.70 [facility] Basophils [#/volume] in Blood by Automated count 0.03 10^3/uL 0.00 - 0.20 [facility] #IG 0.03 10^3/uL 0.00 - 0.10 [facility] #NRBC 0.00 10^3/uL 0.00 - 0.00 [facility] MANUAL DIFF NOT INDICATED [facility] RBC MORPH NOT INDICATED [facility] ID Date Data Source [id number] 05/29/2019 02:14:00 PM EST [facility] Name Value Range Interpretation Code Description Data [place] rce(s) Supporting Document(s) COMPREHENSIVE METABOLIC PANEL [facility] COMPREHENSIVE METABOLIC PANEL Sodium [Moles/volume] in Serum or Plasma 135 mEq/L 134 - 153 [facility] Potassium [Moles/volume] in Serum or Plasma 4.4 mEq/L 3.6 - 5.0 [facility] Chloride [Moles/volume] in Serum or Plasma 100 mEq/L 98 - 107 [facility] Carbon dioxide, total [Moles/volume] in Serum or Plasma 24 MEQ/L 22 - 30 [facility] Glucose [Mass/volume] in Serum or Plasma 102 MG/DL 65 - 110 [facility] BUN 19 MG/DL 7 - 21 [facility] Creatinine [Mass/volume] in Serum or Plasma 0.7 MG/DL 0.7 - 1.5 [facility] BUN/CREAT 27 8 - 27 [facility] Protein [Mass/volume] in Serum or Plasma 6.6 G/DL 6.3 - 8.2 [facility] Albumin [Mass/volume] in Serum or Plasma 4.5 G/DL 3.9 - 5.0 [facility] Globulin [Mass/volume] in Serum by calculation 2.1 GM/DL 2.4 - 3.2 L [facility] A/G RATIO 2.1 0.8 - 2.0 [facility] Calcium [Mass/volume] in Serum or Plasma 9.6 MG/DL 8.4 - 10.2 [facility] Bilirubin.total [Mass/volume] in Serum or Plasma 0.7 MG/DL 0.2 - 1.3 [facility] Alkaline phosphatase [Enzymatic activity/volume] in Serum or Plasma 53 U/L 38 - 126 [facility] Aspartate aminotransferase [Enzymatic activity/volume] in Serum or Plasma 30 U/L 5 - 40 [facility] Alanine aminotransferase [Enzymatic activity/volume] in Seru m or Plasma 46 U/L 7 - 56 [facility] Anion gap 3 in Serum or Plasma 11.0 mmol/L 8.0 - 16.0 [facility] AGE 48 yrs [facility] NON-AA GFR >60 mL/min [facility] ital AFR AMER GFR >60 mL/min [facility] Male GFR In terprentation [...] >32 mL/min Normal ID Date Data Source [id number] 05/29/2019 02:05:00 PM EST [facility] Name Value Range Interpretation Code Description Data [place] rce(s) Supporting Document(s) Magnesium [Mass/volume] in Serum or Plasma 2.1 MG/DL 1.7 - 2.2 [facility] Procedure Social History Code Duration Value Status Description Data Source(s ) 06/30/2020 12:44:00 PM EST Never smoker completed Never s [facility] Smoking 06/30/2020 12:44:00 PM EST Never smoker completed Never s [facility] 05/07/2020 10:59:56 AM EST Former smoker completed Former smoker [facility] Smoking 05/07/2020 10:59:00 AM EST Former smoker completed Former smoker [facility] Smoking 02/05/2020 10:21:00 PM EDT Current every day smoker co mpleted Current every day smoker [facility] Smoking 02/05/2020 10:21:00 PM EDT Current every day smoker co mpleted Current every day smoker [facility] Smoking 02/05/2020 10:21:00 PM EDT Current every day smoker co mpleted Current every day smoker [facility] Smoking 02/05/2020 10:21:00 PM EDT Current every day smoker co mpleted Current every day smoker [facility] 02/05/2020 09:21:10 PM EDT Yes completed Yes [facility] 02/05/2020 09:21:10 PM EDT Yes completed Yes [facility] 02/05/2020 09:21:10 PM EDT Yes completed Yes [facility] 02/05/2020 09:21:10 PM EDT Yes completed Yes [facility] 02/05/2020 09:21:10 PM EDT Current every day smoker co mpleted Current every day smoker [facility] 02/05/2020 09:21:10 PM EDT Yes completed Yes [facility] 02/05/2020 09:21:10 PM EDT Yes completed Yes [facility] 02/05/2020 09:21:10 PM EDT Current every day smoker co mpleted Current every day smoker [facility] 02/05/2020 09:21:10 PM EDT Yes completed Yes [facility] 02/05/2020 09:21:10 PM EDT Yes completed Yes [facility] 02/05/2020 09:21:10 PM EDT Yes completed Yes [facility] 02/05/2020 09:21:10 PM EDT Yes completed Yes [facility] 02/05/2020 09:21:10 PM EDT Current every day smoker co mpleted Current every day smoker [facility] 02/05/2020 09:21:10 PM EDT Yes completed Yes [facility] 02/05/2020 09:21:10 PM EDT Yes completed Yes [facility] 02/05/2020 09:21:10 PM EDT Current every day smoker co mpleted Current every day smoker [facility] 02/05/2020 09:21:10 PM EDT Yes completed Yes [facility] 02/05/2020 09:21:10 PM EDT Yes completed Yes [facility] 02/05/2020 09:21:10 PM EDT Current every day smoker co mpleted Current every day smoker [facility] 02/05/2020 09:21:10 PM EDT Yes completed Yes [facility] 02/05/2020 09:21:10 PM EDT Yes completed Yes [facility] 02/05/2020 09:21:10 PM EDT Current every day smoker co mpleted Current every day smoker [facility] Smoking 02/05/2020 09:21:00 PM EDT Current every day smoker co mpleted Current every day smoker [facility] Smoking 02/05/2020 09:21:00 PM EDT Current every day smoker co mpleted Current every day smoker [facility] Smoking 11/09/2019 12:00:00 AM EDT Patient has never smoked co mpleted Patient has never smoked [facility] 07/12/2019 09:52:02 AM EST Former smoker completed Former smoker [facility] 07/12/2019 09:52:02 AM EST Former smoker completed Former smoker [facility] 07/12/2019 09:52:02 AM EST Former smoker completed Former smoker [facility] 07/12/2019 09:52:02 AM EST Former smoker completed Former smoker [facility] Smoking 07/12/2019 09:52:00 AM EST Former smoker completed Former smoker [facility] Smoking 07/12/2019 09:52:00 AM EST Former smoker completed Former smoker [facility] Smoking 07/12/2019 08:52:00 AM EST Former smoker completed Former smoker [facility] Smoking 07/12/2019 08:52:00 AM EST Former smoker completed Former smoker [facility] Vital Signs ID Date Data Source UNK Name Value Range Interpretation Code Description Data Source(s) Body surface area Derived from formula 2.30 m2 2.30 m2 [facility] ([facility]) Body mass index (BMI) [Ratio] 36.2 kg/m2 36.2 k g/m2 [facility]) Body height 70 [in_i] 70 [in_i] [facility] ([facility]) 5'10" Body weight 114.421 kg 114.421 [facility] Body weight 252.25 [lb_av] 252.25 [lb_av] [facility] ([facility]) Oxygen saturation in Arterial blood by Pulse oximetry 98 % 98 % [facility] ([facility]) Respiratory rate 18 /min 18 /min [facility] ( [facility]) Body temperature 99.3 [degF] 99.3 [degF] [facility] ([facility]) Oral Heart rate 62 /min 62 /min [facility] ([facility]) Diastolic blood pressure--sitting 86 mm[Hg] 86 mm[Hg] [facility] ([facility]) Systolic blood pressure--sitting 140 mm[Hg] 140 mm[Hg] [facility] ([facility]) Body surface area 2.32 m2 2.32 m2 [facility] ([facility]) Body surface area Derived from formula 2.32 m2 2.32 m2 [facility] ([facility]) Body mass index (BMI) [Ratio] 34.9 kg/m2 34.9 k g/m2 [facility] ([facility]) Body height 71 [in_i] 71 [in_i] [facility] Body weight 113.400 kg 113.400 kg [facility] ([facility]) Body weight 250.00 [lb_av] 250.00 [lb_av] [facility] ([facility]) Respiratory rate 17 /min 17 /min [facility] ( [facility]) Body temperature 97.3 [degF] 97.3 [degF] [facility] ([facility]) Heart rate 70 /min 70 /min [facility] ([facility]) Diastolic blood pressure 92 mm[Hg] 92 mm[Hg] [facility] ([facility]) Systolic blood pressure 141 mm[Hg] 141 mm[Hg] [facility] ([facility]) Body mass index (BMI) [Ratio] 44.3 kg/m2 [...] [facility]) ID Date Data Source [id number] 02/14/2020 11:42:12 AM EDT [facility] Name Value Range Interpretation Code Description Data Source(s) WEIGHT RECORDED 249.90 pounds 249.90 pounds [facility] Height 70 Inches 070 Inches [facility] ID Date Data Source [id number] 02/09/2020 01:23:31 PM EDT [facility] Name Value Range Interpretation Code Description Data Source(s) WEIGHT RECORDED 250.00 pounds 250.00 pounds [facility] Height 70 Inches 070 Inches [facility]
[2020-07-01 09:03] LABS: BASO % 0.3 % (0.0-1.0); EOS % 0.1 % (0.0-3.0); HEMATOCRIT 48.4 % (42.0-52.0); HEMOGLOBIN 17.1 g/dl (13.5-17.5); LYMPH # 1.4 10^3/uL (1.5-5.0); LYMPH % 11.8 % (24.0-44.0); MEAN CORPUSCULAR HEMOGLOBIN 30.9 pg (27.0-33.0); MEAN CORPUSCULAR HGB CONC 35.3 g/dl (32.0-36.5); MEAN CORPUSCULAR VOLUME 87.4 fl (80.0-96.0); MONO # 1.2 10^3/uL (0.0-0.8); MONO % 9.9 % (0.0-5.0); NEUTROPHILS # 9.3 10^3/uL (1.5-8.5); NEUTROPHILS % 77.5 % (36.0-66.0); PLATELET COUNT, AUTOMATED 275 10^3/uL (150-450); RED BLOOD COUNT 5.54 10^6/uL (4.30-6.10)
[2020-07-01 09:37] LABS: BLOOD UREA NITROGEN 6 MG/DL (7-18); CALCIUM LEVEL 9.3 MG/DL (8.5-10.1); CARBON DIOXIDE LEVEL 26 MEQ/L (21-32); CHLORIDE LEVEL 97 MEQ/L (98-107); CREATININE FOR GFR 0.74 MG/DL (0.70-1.30); GLOMERULAR FILTRATION RATE > 60.0 (>60); GLUCOSE, FASTING 110 MG/DL (70-100); POTASSIUM SERUM 4.7 MEQ/L (3.5-5.1); SODIUM LEVEL 131 MEQ/L (136-145); VALPROIC ACID (DEPAKOTE) 58.7 UG/ML (50.0-100.0)
[2020-07-01] MEDS: GASTROGRAFIN SOLUTION 30ML PO SCH ×2 (09:47→10:20)
[2020-07-01] MEDS ORDERED: ISOVUE-370 76% 100ML VIAL As Ordered ONE (10:49)
--- NOTE | 2020-07-01 11:16 | REP ---
INDICATION: ?diverticulitis. COMPARISON: 06/28/2020 TECHNIQUE: Axial contrast-enhanced images from the lung bases to the pubic symphysis using 100 cc Isovue 370 intravenous contrast material. Coronal and sagittal reformations obtained. This CT examination was performed using the following dose reduction techniques: Automated exposure control, adjustment of mA and/or kv according to the patient's size, and the use of iterative reconstruction technique. FINDINGS: Liver, spleen, pancreas, gallbladder, bilateral adrenal glands and kidneys are normal. No evidence for acute bowel obstruction or perforation. Previously noted sigmoid diverticulitis has improved/nearly resolved. There is no evidence for new acute enteric process. A periumbilical hernia is again noted containing mesenteric fat and nonobstructed small bowel. Scattered diverticula noted without acute diverticulitis. Normal terminal ileum and appendix identified in the right lower quadrant.. Pelvis demonstrates normal bladder and age-appropriate prostate/seminal vesicles. No ascites. No free air. No intraperitoneal or retroperitoneal adenopathy. Abdominal aorta and vasculature appear normal. Musculoskeletal structures are intact and without acute osseous abnormality. IMPRESSION: 1. Essentially complete resolution to the previously noted sigmoid diverticulitis. 2. No acute abdominopelvic pathology appreciated. 3. Stable chronic findings including periumbilical hernia with mesenteric fat and nonobstructed small bowel. <Electronically signed by Laith Myrick > 07/01/20 [id number]
[2020-07-01 14:55] LABS: RSV AMPLIFICATION NEGATIVE (NEGATIVE)
[2020-07-01 17:53] LABS: AMPHETAMINES LEVEL URINE NEGATIVE (NEGATIVE); BARBITURATES URINE NEGATIVE (NEGATIVE); BENZODIAZEPINES URINE POSITIVE (NEGATIVE); CANNABINOIDS URINE POSITIVE (NEGATIVE); COCAINE METABOLITE URINE NEGATIVE (NEGATIVE); METHADONE URINE NEGATIVE (NEGATIVE); OPIATES URINE NEGATIVE (NEGATIVE); PHENCYCLIDINE URINE NEGATIVE (NEGATIVE)
[2020-07-01 17:54] LABS: ACETAMINOPHEN LEVEL < 2.0 UG/ML (10.0-30.0); ETHYL ALCOHOL (ETHANOL) 0.004 % (0.000-0.010); SALICYLATE LEVEL < 1.7 MG/DL (5.0-30.0)
--- NOTE | 2020-07-01 21:00 | ECGEPIP ---
[facility] - ED Test Date: 2020-07-01 Pat Name: PIPER AN Department: Room: - Gender: Male [employer]: : 1970 Requested By: Pablo Estrada Order Number: [id number] Reading MD: Pablo Palomares Measurements Intervals [place] Rate: 88 P: 39 ND: 154 QRS: -35 QRSD: 150 T: -11 QT: 380 QTc: 461 Interpretive Statements SINUS RHYTHM LEFT AXIS DEVIATION RIGHT BUNDLE BRANCH BLOCK SIMILAR TO 06/28/20 Electronically Signed on 07-01-2020 21:00:17 EST by Pablo Palomares
[2020-07-02 00:54] VITALS: BP 168/98
== END 2020-07-02 01:01 ==
LOC: M ED 07:29
DX: F23 Brief psychotic disorder (principal); I45.10 Unspecified right bundle-branch block; I10 Essential (primary) hypertension; Z79.899 Other long term (current) drug therapy; Z88.8 Allergy status to other drugs, medicaments and biological substances; F12.20 Cannabis dependence, uncomplicated
CPT/HCPCS: 36415; 74177; 80048; 80143; 80164; 80307; 82077; 85025; 87631; 93005; 99285; Q9963; Q9967

== ENCOUNTER 2021-06-11 22:16 | Inpatient (IN) | payer MEDICARE ==
[~2021-06-11] VITALS: Ht 177.8 cm; Wt 108.6 kg
[~2021-06-11 22:16] MED LIST changes: +LEVO750T13; +METR-265
[2021-06-11 23:08] LABS: HEMATOCRIT 51.9 % (42.0-52.0); HEMOGLOBIN 18.1 g/dl (13.5-17.5); MEAN CORPUSCULAR HEMOGLOBIN 29.4 pg (27.0-33.0); MEAN CORPUSCULAR HGB CONC 34.9 g/dl (32.0-36.5); MEAN CORPUSCULAR VOLUME 84.4 fl (80.0-96.0); PLATELET COUNT, AUTOMATED 275 10^3/uL (150-450); RED BLOOD COUNT 6.15 10^6/uL (4.30-6.10); WHITE BLOOD COUNT 12.3 10^3/uL (4.0-10.0)
[2021-06-11 23:32] LABS: ACETAMINOPHEN LEVEL < 2.0 UG/ML (10.0-30.0); ALBUMIN 4.6 GM/DL (3.2-5.2); ALT/SGPT 41 U/L (12-78); BILIRUBIN,DIRECT 0.3 MG/DL (0.0-0.2); BILIRUBIN,TOTAL 1.1 MG/DL (0.2-1.0); BLOOD UREA NITROGEN 13 MG/DL (7-18); CALCIUM LEVEL 9.8 MG/DL (8.5-10.1); CARBON DIOXIDE LEVEL 22 MEQ/L (21-32); CHLORIDE LEVEL 96 MEQ/L (98-107); CREATININE FOR GFR 1.25 MG/DL (0.70-1.30); ETHYL ALCOHOL (ETHANOL) 0.005 % (0.000-0.010); GLOMERULAR FILTRATION RATE > 60.0 (>60); GLUCOSE, FASTING 116 MG/DL (70-100); POTASSIUM SERUM 4.1 MEQ/L (3.5-5.1); SALICYLATE LEVEL < 1.7 MG/DL (5.0-30.0); SODIUM LEVEL 131 MEQ/L (136-145); TOTAL PROTEIN 7.5 GM/DL (6.4-8.2)
[2021-06-11] MEDS ORDERED: PANTOPRAZOLE 40MG TAB (PROTONIX) PO ONE (23:40)
[2021-06-11 23:49] LABS: RSV AMPLIFICATION NEGATIVE (NEGATIVE)
[2021-06-12] MEDS ORDERED: ACET25TA12 PO (02:10)
[2021-06-12] MEDS ORDERED: LISI40TA4 PO (02:10)
[2021-06-12] MEDS ORDERED: DIVA500T9 PO (02:10)
[2021-06-12] MEDS ORDERED: RISP-7 PO (02:10)
[2021-06-12] MEDS ORDERED: PRAZ5CAP22 PO (02:10)
[2021-06-12] MEDS ORDERED: ZOLO100T PO (02:10)
[2021-06-12] MEDS ORDERED: TEST200I14 IM (02:10)
[2021-06-12] MEDS ORDERED: CLON0.5T2 PO (02:10)
[2021-06-12] MEDS ORDERED: BUSP10TA PO (02:10)
[2021-06-12] MEDS ORDERED: MOBI4TAB PO (02:10)
[2021-06-12] MEDS ORDERED: AMLO1TAB24 PO (02:10)
[2021-06-12] MEDS ORDERED: VITMTA PO (02:10)
[2021-06-12] MEDS ORDERED: HOME MED LIST COMPLETE! XX SCH ×2 (02:15)
[2021-06-12 04:57] LABS: AMPHETAMINES LEVEL URINE NEGATIVE (NEGATIVE); BARBITURATES URINE NEGATIVE (NEGATIVE); BENZODIAZEPINES URINE POSITIVE (NEGATIVE); CANNABINOIDS URINE NEGATIVE (NEGATIVE); COCAINE METABOLITE URINE NEGATIVE (NEGATIVE); METHADONE URINE NEGATIVE (NEGATIVE); OPIATES URINE NEGATIVE (NEGATIVE); PHENCYCLIDINE URINE NEGATIVE (NEGATIVE)
[2021-06-12] MEDS ORDERED: lisinopriL 40 MG TAB PO SCH (09:00)
[2021-06-12] MEDS ORDERED: MELOXICAM (MOBIC) 7.5 MG TAB PO SCH (09:00)
[2021-06-12] MEDS ORDERED: amLODIPine 5 MG TAB PO SCH (09:00)
[2021-06-12] MEDS ORDERED: risperiDONE 0.5 MG TAB PO SCH (09:00)
[2021-06-12] MEDS ORDERED: busPIRone 10 MG TAB PO SCH (09:00)
[2021-06-12] MEDS ORDERED: MAALOX 30 ML SUSP *UDC PO PRN (14:35)
[2021-06-12] MEDS ORDERED: MOM 30ML SUSPENSION UDC PO PRN (14:35)
[2021-06-12] MEDS ORDERED: clonazePAM 0.5 MG TAB PO PRN (14:35)
[2021-06-12] MEDS ORDERED: ACETAMINOPHEN TAB 650MG DOSE (2X325MG) PO PRN (14:35)
[2021-06-12 18:48] VITALS: BP 132/81
[2021-06-12] MEDS: busPIRone 10 MG TAB PO SCH (21:15)
[2021-06-12] MEDS: DIVALPROEX 500MG *ER* TAB PO SCH (21:15)
[2021-06-12] MEDS: risperiDONE 0.5 MG TAB PO SCH (21:15)
[2021-06-12] MEDS: traZODone 50 MG TAB PO PRN (21:15)
[2021-06-13 05:54] VITALS: BP 183/97
[2021-06-13] MEDS: SERTRALINE 100 MG TAB PO SCH (08:15)
[2021-06-13] MEDS: busPIRone 10 MG TAB PO SCH ×2 (08:16→21:12)
[2021-06-13] MEDS: amLODIPine 5 MG TAB PO SCH (08:16)
[2021-06-13] MEDS: risperiDONE 0.5 MG TAB PO SCH ×2 (08:16→21:12)
[2021-06-13] MEDS: MELOXICAM (MOBIC) 7.5 MG TAB PO SCH (08:16)
[2021-06-13] MEDS: MULTIVITAMINS/MINERALS THERAP 1 TAB PO SCH (08:16)
[2021-06-13] MEDS: lisinopriL 40 MG TAB PO SCH (09:29)
[2021-06-13] MEDS ORDERED: clonazePAM 0.5 MG TAB PO PRN (09:50)
[2021-06-13] MEDS: NICOTINE POLACRILEX 2 MG GUM PO PRN ×2 (10:18→14:38)
[2021-06-13 16:21] VITALS: BP 135/96
[2021-06-13] MEDS: traZODone 50 MG TAB PO PRN (21:12)
[2021-06-13] MEDS: DIVALPROEX 500MG *ER* TAB PO SCH (21:12)
[2021-06-14 06:59] VITALS: BP 142/84
[2021-06-14] MEDS: amLODIPine 5 MG TAB PO SCH (09:29)
[2021-06-14] MEDS: NICOTINE POLACRILEX 2 MG GUM PO PRN ×3 (09:29→18:15)
[2021-06-14] MEDS: risperiDONE 0.5 MG TAB PO SCH ×2 (09:29→21:34)
[2021-06-14] MEDS: MELOXICAM (MOBIC) 7.5 MG TAB PO SCH (09:29)
[2021-06-14] MEDS: MULTIVITAMINS/MINERALS THERAP 1 TAB PO SCH (09:29)
[2021-06-14] MEDS: SERTRALINE 100 MG TAB PO SCH (09:29)
[2021-06-14] MEDS: busPIRone 10 MG TAB PO SCH ×2 (09:29→21:33)
[2021-06-14] MEDS: lisinopriL 40 MG TAB PO SCH (09:29)
[2021-06-14 17:38] LABS: CHOLESTEROL RISK RATIO 6.58 (<5)
[2021-06-14 17:39] VITALS: BP 148/76
[2021-06-14] MEDS: DIVALPROEX 500MG *ER* TAB PO SCH (21:34)
[2021-06-14] MEDS: traZODone 50 MG TAB PO PRN (21:34)
[2021-06-15 07:00] VITALS: BP 147/91
[2021-06-15] MEDS: SERTRALINE 100 MG TAB PO SCH (08:08)
[2021-06-15] MEDS: MELOXICAM (MOBIC) 7.5 MG TAB PO SCH (08:08)
[2021-06-15] MEDS: lisinopriL 40 MG TAB PO SCH (08:08)
[2021-06-15] MEDS: busPIRone 10 MG TAB PO SCH ×2 (08:08→20:38)
[2021-06-15] MEDS: amLODIPine 5 MG TAB PO SCH (08:09)
[2021-06-15] MEDS: risperiDONE 0.5 MG TAB PO SCH ×2 (08:09→20:38)
[2021-06-15] MEDS: MULTIVITAMINS/MINERALS THERAP 1 TAB PO SCH (08:09)
[2021-06-15] MEDS: NICOTINE POLACRILEX 2 MG GUM PO PRN ×3 (08:09→20:40)
[2021-06-15] MEDS: DIVALPROEX 500MG *ER* TAB PO SCH (20:37)
[2021-06-15] MEDS: traZODone 50 MG TAB PO PRN (20:38)
[2021-06-16 06:44] VITALS: BP 144/76
[2021-06-16] MEDS: MELOXICAM (MOBIC) 7.5 MG TAB PO SCH (08:42)
[2021-06-16] MEDS: lisinopriL 40 MG TAB PO SCH (08:43)
[2021-06-16] MEDS: amLODIPine 5 MG TAB PO SCH (08:43)
[2021-06-16] MEDS: risperiDONE 0.5 MG TAB PO SCH (08:44)
[2021-06-16] MEDS: MULTIVITAMINS/MINERALS THERAP 1 TAB PO SCH (08:44)
[2021-06-16] MEDS: SERTRALINE 100 MG TAB PO SCH (08:44)
[2021-06-16] MEDS: busPIRone 10 MG TAB PO SCH ×2 (08:44→21:52)
[2021-06-16] MEDS: NICOTINE POLACRILEX 2 MG GUM PO PRN ×3 (08:46→21:56)
[2021-06-16 16:04] VITALS: BP 126/70
[2021-06-16] MEDS ORDERED: risperiDONE 1 MG TAB PO SCH (21:00)
[2021-06-16] MEDS: DIVALPROEX 500MG *ER* TAB PO SCH (21:51)
[2021-06-16] MEDS: traZODone 50 MG TAB PO PRN (21:52)
[2021-06-16] MEDS: DIVALPROEX 250MG *ER* TAB PO SCH (21:52)
[2021-06-17 06:36] VITALS: BP 141/61
[2021-06-17] MEDS: lisinopriL 40 MG TAB PO SCH (08:40)
[2021-06-17] MEDS: SERTRALINE 100 MG TAB PO SCH (08:40)
[2021-06-17] MEDS: MULTIVITAMINS/MINERALS THERAP 1 TAB PO SCH (08:40)
[2021-06-17] MEDS: busPIRone 10 MG TAB PO SCH ×2 (08:40→21:54)
[2021-06-17] MEDS: MELOXICAM (MOBIC) 7.5 MG TAB PO SCH (08:41)
[2021-06-17] MEDS: amLODIPine 5 MG TAB PO SCH (08:42)
[2021-06-17] MEDS: NICOTINE POLACRILEX 2 MG GUM PO PRN ×3 (08:45→21:54)
[2021-06-17] MEDS ORDERED: risperiDONE 0.5 MG TAB PO SCH (09:00)
[2021-06-17] MEDS: OLANZapine ORAL DISINTEGRATING TAB 5MG PO PRN (14:37)
[2021-06-17 16:48] VITALS: BP 147/82
[2021-06-17 16:49] VITALS: BP 122/75
[2021-06-17] MEDS: traZODone 50 MG TAB PO PRN (21:54)
[2021-06-17] MEDS: DIVALPROEX 500MG *ER* TAB PO SCH (21:54)
[2021-06-17] MEDS: DIVALPROEX 250MG *ER* TAB PO SCH (21:54)
[2021-06-17] MEDS: risperiDONE 0.5 MG TAB PO SCH (21:54)
[2021-06-18 06:49] VITALS: BP 151/94
[2021-06-18] MEDS: MELOXICAM (MOBIC) 7.5 MG TAB PO SCH (08:02)
[2021-06-18] MEDS: MULTIVITAMINS/MINERALS THERAP 1 TAB PO SCH (08:02)
[2021-06-18] MEDS: risperiDONE 0.5 MG TAB PO SCH ×2 (08:02→21:53)
[2021-06-18] MEDS: SERTRALINE 100 MG TAB PO SCH (08:02)
[2021-06-18] MEDS: lisinopriL 40 MG TAB PO SCH (08:02)
[2021-06-18] MEDS: amLODIPine 5 MG TAB PO SCH (08:02)
[2021-06-18] MEDS: busPIRone 10 MG TAB PO SCH ×2 (08:02→21:53)
[2021-06-18] MEDS: NICOTINE POLACRILEX 2 MG GUM PO PRN ×3 (08:02→17:16)
[2021-06-18] MEDS: OLANZapine ORAL DISINTEGRATING TAB 5MG PO PRN (15:13)
[2021-06-18 16:07] VITALS: BP 118/65
[2021-06-18] MEDS: DIVALPROEX 250MG *ER* TAB PO SCH (21:53)
[2021-06-18] MEDS: DIVALPROEX 500MG *ER* TAB PO SCH (21:54)
[2021-06-18] MEDS: traZODone 50 MG TAB PO PRN (21:57)
[2021-06-19 06:57] VITALS: BP 156/90
[2021-06-19] MEDS: amLODIPine 5 MG TAB PO SCH (08:57)
[2021-06-19] MEDS: NICOTINE POLACRILEX 2 MG GUM PO PRN ×3 (08:57→17:41)
[2021-06-19] MEDS: MELOXICAM (MOBIC) 7.5 MG TAB PO SCH (08:57)
[2021-06-19] MEDS: SERTRALINE 100 MG TAB PO SCH (08:57)
[2021-06-19] MEDS: lisinopriL 40 MG TAB PO SCH (08:57)
[2021-06-19] MEDS: MULTIVITAMINS/MINERALS THERAP 1 TAB PO SCH (08:57)
[2021-06-19] MEDS: busPIRone 10 MG TAB PO SCH ×2 (08:57→21:02)
[2021-06-19] MEDS: buPROPion **XL** TABLET 150MG (WELLBUTRIN XL) PO SCH (08:58)
[2021-06-19] MEDS: risperiDONE 0.5 MG TAB PO SCH ×2 (08:58→21:03)
[2021-06-19] MEDS: OLANZapine ORAL DISINTEGRATING TAB 5MG PO PRN (14:37)
[2021-06-19 18:53] VITALS: BP 156/86
[2021-06-19] MEDS: DIVALPROEX 250MG *ER* TAB PO SCH (21:03)
[2021-06-19] MEDS: traZODone 50 MG TAB PO PRN (21:03)
[2021-06-19] MEDS: DIVALPROEX 500MG *ER* TAB PO SCH (21:03)
[2021-06-20 06:24] VITALS: BP 137/62
[2021-06-20] MEDS: lisinopriL 40 MG TAB PO SCH (08:33)
[2021-06-20] MEDS: SERTRALINE 100 MG TAB PO SCH (08:34)
[2021-06-20] MEDS: MELOXICAM (MOBIC) 7.5 MG TAB PO SCH (08:34)
[2021-06-20] MEDS: risperiDONE 0.5 MG TAB PO SCH ×2 (08:34→20:43)
[2021-06-20] MEDS: buPROPion **XL** TABLET 150MG (WELLBUTRIN XL) PO SCH (08:34)
[2021-06-20] MEDS: MULTIVITAMINS/MINERALS THERAP 1 TAB PO SCH (08:34)
[2021-06-20] MEDS: amLODIPine 5 MG TAB PO SCH (08:34)
[2021-06-20] MEDS: busPIRone 10 MG TAB PO SCH ×2 (08:35→20:42)
[2021-06-20] MEDS: NICOTINE POLACRILEX 2 MG GUM PO PRN ×3 (08:35→20:45)
[2021-06-20 16:06] VITALS: BP 144/75
[2021-06-20] MEDS: traZODone 50 MG TAB PO PRN (20:43)
[2021-06-20] MEDS: DIVALPROEX 250MG *ER* TAB PO SCH (20:43)
[2021-06-20] MEDS: DIVALPROEX 500MG *ER* TAB PO SCH (20:43)
[2021-06-21 06:45] VITALS: BP 154/96
[2021-06-21] MEDS: MULTIVITAMINS/MINERALS THERAP 1 TAB PO SCH (08:06)
[2021-06-21] MEDS: MELOXICAM (MOBIC) 7.5 MG TAB PO SCH (08:06)
[2021-06-21] MEDS: amLODIPine 5 MG TAB PO SCH (08:06)
[2021-06-21] MEDS: NICOTINE POLACRILEX 2 MG GUM PO PRN ×3 (08:06→16:52)
[2021-06-21] MEDS: buPROPion **XL** TABLET 150MG (WELLBUTRIN XL) PO SCH (08:07)
[2021-06-21] MEDS: SERTRALINE 100 MG TAB PO SCH (08:07)
[2021-06-21] MEDS: risperiDONE 0.5 MG TAB PO SCH ×2 (08:07→20:41)
[2021-06-21] MEDS: lisinopriL 40 MG TAB PO SCH (08:07)
[2021-06-21] MEDS: busPIRone 10 MG TAB PO SCH ×2 (08:07→20:40)
[2021-06-21 16:17] VITALS: BP 137/80
[2021-06-21] MEDS: traZODone 50 MG TAB PO PRN (20:40)
[2021-06-21] MEDS: DIVALPROEX 500MG *ER* TAB PO SCH (20:40)
[2021-06-21] MEDS: DIVALPROEX 250MG *ER* TAB PO SCH (20:41)
[2021-06-22 06:37] VITALS: BP 132/74
[2021-06-22] MEDS: SERTRALINE 100 MG TAB PO SCH (08:16)
[2021-06-22] MEDS: risperiDONE 0.5 MG TAB PO SCH ×2 (08:16→20:27)
[2021-06-22] MEDS: NICOTINE POLACRILEX 2 MG GUM PO PRN ×3 (08:16→20:30)
[2021-06-22] MEDS: busPIRone 10 MG TAB PO SCH ×2 (08:16→20:27)
[2021-06-22] MEDS: buPROPion **XL** TABLET 150MG (WELLBUTRIN XL) PO SCH (08:16)
[2021-06-22] MEDS: MELOXICAM (MOBIC) 7.5 MG TAB PO SCH (08:16)
[2021-06-22] MEDS: lisinopriL 40 MG TAB PO SCH (08:16)
[2021-06-22] MEDS: MULTIVITAMINS/MINERALS THERAP 1 TAB PO SCH (08:16)
[2021-06-22] MEDS: amLODIPine 5 MG TAB PO SCH (08:17)
[2021-06-22 16:11] VITALS: BP 138/80
[2021-06-22] MEDS: DIVALPROEX 250MG *ER* TAB PO SCH (20:28)
[2021-06-22] MEDS: DIVALPROEX 500MG *ER* TAB PO SCH (20:28)
[2021-06-23 06:31] VITALS: BP 127/77
[2021-06-23] MEDS: busPIRone 10 MG TAB PO SCH ×2 (08:10→20:35)
[2021-06-23] MEDS: MELOXICAM (MOBIC) 7.5 MG TAB PO SCH (08:10)
[2021-06-23] MEDS: lisinopriL 40 MG TAB PO SCH (08:10)
[2021-06-23] MEDS: MULTIVITAMINS/MINERALS THERAP 1 TAB PO SCH (08:11)
[2021-06-23] MEDS: buPROPion **XL** TABLET 150MG (WELLBUTRIN XL) PO SCH (08:11)
[2021-06-23] MEDS: amLODIPine 5 MG TAB PO SCH (08:11)
[2021-06-23] MEDS: SERTRALINE 100 MG TAB PO SCH (08:11)
[2021-06-23] MEDS: risperiDONE 0.5 MG TAB PO SCH ×2 (08:12→20:35)
[2021-06-23] MEDS: NICOTINE POLACRILEX 2 MG GUM PO PRN ×2 (08:13→16:51)
[2021-06-23] MEDS: DIVALPROEX 500MG *ER* TAB PO SCH (20:34)
[2021-06-23] MEDS: DIVALPROEX 250MG *ER* TAB PO SCH (20:35)
[2021-06-23 20:37] VITALS: BP 158/80
[2021-06-24 06:28] VITALS: BP 143/88
[2021-06-24] MEDS: MELOXICAM (MOBIC) 7.5 MG TAB PO SCH (08:56)
[2021-06-24] MEDS: busPIRone 10 MG TAB PO SCH ×2 (08:57→20:29)
[2021-06-24] MEDS: lisinopriL 40 MG TAB PO SCH (08:57)
[2021-06-24] MEDS: SERTRALINE 100 MG TAB PO SCH (08:57)
[2021-06-24] MEDS: risperiDONE 0.5 MG TAB PO SCH (08:59)
[2021-06-24] MEDS: NICOTINE POLACRILEX 2 MG GUM PO PRN ×3 (08:59→20:29)
[2021-06-24] MEDS: MULTIVITAMINS/MINERALS THERAP 1 TAB PO SCH (08:59)
[2021-06-24] MEDS: buPROPion **XL** TABLET 150MG (WELLBUTRIN XL) PO SCH (08:59)
[2021-06-24] MEDS: amLODIPine 5 MG TAB PO SCH (08:59)
[2021-06-24 19:04] VITALS: BP 140/81
[2021-06-24] MEDS: risperiDONE 2 MG TAB PO SCH (20:29)
[2021-06-24] MEDS: traZODone 50 MG TAB PO PRN (20:29)
[2021-06-24] MEDS: DIVALPROEX 250MG *ER* TAB PO SCH (20:30)
[2021-06-24] MEDS: DIVALPROEX 500MG *ER* TAB PO SCH (20:30)
[2021-06-25 06:23] VITALS: BP 140/76
[2021-06-25 08:37] VITALS: BP 140/76
[2021-06-25] MEDS: lisinopriL 40 MG TAB PO SCH (08:37)
[2021-06-25] MEDS: MELOXICAM (MOBIC) 7.5 MG TAB PO SCH (08:37)
[2021-06-25] MEDS: SERTRALINE 100 MG TAB PO SCH (08:37)
[2021-06-25] MEDS: buPROPion **XL** TABLET 150MG (WELLBUTRIN XL) PO SCH (08:37)
[2021-06-25] MEDS: busPIRone 10 MG TAB PO SCH ×2 (08:37→21:17)
[2021-06-25] MEDS: amLODIPine 5 MG TAB PO SCH (08:37)
[2021-06-25] MEDS: MULTIVITAMINS/MINERALS THERAP 1 TAB PO SCH (08:37)
[2021-06-25] MEDS: risperiDONE 1 MG TAB PO SCH (08:37)
[2021-06-25] MEDS: NICOTINE POLACRILEX 2 MG GUM PO PRN ×3 (08:40→21:18)
[2021-06-25] MEDS: BENZTROPINE 0.5 MG TAB PO SCH ×2 (14:13→21:17)
[2021-06-25] MEDS: OLANZapine ORAL DISINTEGRATING TAB 5MG PO PRN (14:15)
[2021-06-25] MEDS: risperiDONE 2 MG TAB PO SCH (21:17)
[2021-06-25] MEDS: DIVALPROEX 250MG *ER* TAB PO SCH (21:17)
[2021-06-25] MEDS: traZODone 50 MG TAB PO PRN (21:17)
[2021-06-25] MEDS: DIVALPROEX 500MG *ER* TAB PO SCH (21:18)
[2021-06-26 06:36] VITALS: BP 133/69
[2021-06-26] MEDS: risperiDONE 1 MG TAB PO SCH (08:44)
[2021-06-26] MEDS: MULTIVITAMINS/MINERALS THERAP 1 TAB PO SCH (08:44)
[2021-06-26] MEDS: BENZTROPINE 0.5 MG TAB PO SCH (08:44)
[2021-06-26] MEDS: MELOXICAM (MOBIC) 7.5 MG TAB PO SCH (08:44)
[2021-06-26] MEDS: lisinopriL 40 MG TAB PO SCH (08:44)
[2021-06-26] MEDS: buPROPion **XL** TABLET 150MG (WELLBUTRIN XL) PO SCH (08:44)
[2021-06-26] MEDS: SERTRALINE 100 MG TAB PO SCH (08:45)
[2021-06-26] MEDS: amLODIPine 5 MG TAB PO SCH (08:45)
[2021-06-26] MEDS: busPIRone 10 MG TAB PO SCH (08:45)
[2021-06-26] MEDS: NICOTINE POLACRILEX 2 MG GUM PO PRN ×2 (08:46→13:09)
[2021-06-26] MEDS ORDERED: ZOLO100T PO (09:40)
[2021-06-26] MEDS ORDERED: TRAZ-252 PO (09:40)
[2021-06-26] MEDS ORDERED: BENZ0.5T23 PO (09:40)
[2021-06-26] MEDS ORDERED: BUSP10TA PO (09:40)
[2021-06-26] MEDS ORDERED: RISP-8 PO (09:40)
[2021-06-26] MEDS ORDERED: DEPA500T2 PO (09:40)
[2021-06-26] MEDS ORDERED: DEPA250T2 PO (09:40)
[2021-06-26] MEDS ORDERED: RISP-9 PO (09:40)
[2021-06-26] MEDS ORDERED: NICO2GUM PO (09:40)
[2021-06-26] MEDS ORDERED: BUPR150T12 PO (09:40)
== END 2021-06-26 13:15 | disposition home or self-care (01) | DRG 885 ==
LOC: M ED 22:16 → M PSY 06-12 14:31
PROVIDERS: ADMIT Student in an Organized Health Care Education/Training Program; ATTEND Student in an Organized Health Care Education/Training Program
DX: F20.9 Schizophrenia, unspecified (principal); R45.851 Suicidal ideations; F17.200 Nicotine dependence, unspecified, uncomplicated; I48.91 Unspecified atrial fibrillation; I45.6 Pre-excitation syndrome; I10 Essential (primary) hypertension; Z79.899 Other long term (current) drug therapy; Z88.8 Allergy status to other drugs, medicaments and biological substances

== ENCOUNTER 2021-08-08 10:55 | Inpatient (IN) | payer MEDICARE ==
[~2021-08-08] VITALS: Ht 177.8 cm; Wt 106.5 kg
[~2021-08-08 10:55] MED LIST changes: +ACET25TA12 PO; +AMLO1TAB24 PO; +BENZ0.5T23 PO; +BUPR150T12 PO; +BUSP10TA PO; +CLON0.5T2 PO; +DEPA250T2 PO; +MOBI4TAB PO; +NICO2GUM PO; +PRAZ5CAP22 PO; +RISP-7 PO; +RISP-9 PO; +TEST200I14 IM; +TRAZ-252 PO; +ZOLO100T PO
[2021-08-08] MEDS ORDERED: LORazepam 2 MG TAB PO STA (11:43)
[2021-08-08 12:13] LABS: HEMATOCRIT 44.1 % (42.0-52.0); HEMOGLOBIN 15.6 g/dl (13.5-17.5); MEAN CORPUSCULAR HEMOGLOBIN 29.6 pg (27.0-33.0); MEAN CORPUSCULAR HGB CONC 35.4 g/dl (32.0-36.5); MEAN CORPUSCULAR VOLUME 83.7 fl (80.0-96.0); PLATELET COUNT, AUTOMATED 222 10^3/uL (150-450); RED BLOOD COUNT 5.27 10^6/uL (4.30-6.10)
[2021-08-08 13:00] LABS: ACETAMINOPHEN LEVEL < 2.0 UG/ML (10.0-30.0); ALBUMIN 4.1 GM/DL (3.2-5.2); ALT/SGPT 38 U/L (12-78); BILIRUBIN,DIRECT 0.1 MG/DL (0.0-0.2); BILIRUBIN,TOTAL 0.5 MG/DL (0.2-1.0); BLOOD UREA NITROGEN 4 MG/DL (7-18); CALCIUM LEVEL 9.6 MG/DL (8.5-10.1); CARBON DIOXIDE LEVEL 25 MEQ/L (21-32); CHLORIDE LEVEL 97 MEQ/L (98-107); ETHYL ALCOHOL (ETHANOL) < 0.003 % (0.000-0.010); GLOMERULAR FILTRATION RATE > 60.0 (>56); GLUCOSE, FASTING 98 MG/DL (70-100); POTASSIUM SERUM 4.2 MEQ/L (3.5-5.1); SALICYLATE LEVEL < 1.7 MG/DL (5.0-30.0); SODIUM LEVEL 129 MEQ/L (136-145); TOTAL PROTEIN 6.9 GM/DL (6.4-8.2)
[2021-08-08 13:38] LABS: RSV AMPLIFICATION NEGATIVE (NEGATIVE)
[2021-08-08 16:49] LABS: AMPHETAMINES LEVEL URINE NEGATIVE (NEGATIVE); BARBITURATES URINE NEGATIVE (NEGATIVE); BENZODIAZEPINES URINE NEGATIVE (NEGATIVE); CANNABINOIDS URINE NEGATIVE (NEGATIVE); COCAINE METABOLITE URINE NEGATIVE (NEGATIVE); METHADONE URINE NEGATIVE (NEGATIVE); OPIATES URINE NEGATIVE (NEGATIVE); PHENCYCLIDINE URINE NEGATIVE (NEGATIVE)
[2021-08-08] MEDS ORDERED: RISP-8 PO (17:12)
[2021-08-08] MEDS ORDERED: BUSP10TA PO (17:12)
[2021-08-08] MEDS ORDERED: BENZ0.5T23 PO (17:12)
[2021-08-08] MEDS ORDERED: DIVA500T9 PO (17:12)
[2021-08-08] MEDS ORDERED: ZOLO100T PO (17:12)
[2021-08-08] MEDS ORDERED: DIVA250T7 PO (17:12)
[2021-08-08] MEDS ORDERED: HOME MED LIST COMPLETE! XX SCH (17:15)
[2021-08-08] MEDS ORDERED: ACETAMINOPHEN TAB 650MG DOSE (2X325MG) PO PRN (19:50)
[2021-08-08] MEDS ORDERED: MOM 30ML SUSPENSION UDC PO PRN (19:50)
[2021-08-08] MEDS ORDERED: MAALOX 30 ML SUSP *UDC PO PRN (19:50)
[2021-08-08 23:15] VITALS: BP 120/75
[2021-08-08] MEDS: DIVALPROEX 500MG *ER* TAB PO SCH (23:36)
[2021-08-08] MEDS: BENZTROPINE 0.5 MG TAB PO SCH (23:36)
[2021-08-08] MEDS: traZODone 50 MG TAB PO PRN (23:36)
[2021-08-08] MEDS: busPIRone 10 MG TAB PO SCH (23:36)
[2021-08-08] MEDS: DIVALPROEX 250MG *ER* TAB PO SCH (23:37)
[2021-08-08] MEDS: risperiDONE 1 MG TAB PO SCH (23:37)
[2021-08-09 07:12] VITALS: BP 138/73
[2021-08-09] MEDS: BENZTROPINE 0.5 MG TAB PO SCH ×2 (08:13→20:02)
[2021-08-09] MEDS: MULTIVITAMINS/MINERALS THERAP 1 TAB PO SCH (08:15)
[2021-08-09] MEDS: amLODIPine 5 MG TAB PO SCH (08:15)
[2021-08-09] MEDS: SERTRALINE 100 MG TAB PO SCH (08:16)
[2021-08-09] MEDS: lisinopriL 40MG TAB PO SCH (08:16)
[2021-08-09] MEDS: MELOXICAM (MOBIC) 7.5 MG TAB PO SCH (08:16)
[2021-08-09] MEDS: busPIRone 10 MG TAB PO SCH ×2 (08:16→20:02)
[2021-08-09] MEDS: risperiDONE 1 MG TAB PO SCH ×2 (08:16→20:01)
[2021-08-09 08:52] LABS: BLOOD UREA NITROGEN 7 MG/DL (7-18); CALCIUM LEVEL 9.5 MG/DL (8.5-10.1); CARBON DIOXIDE LEVEL 29 MEQ/L (21-32); CHLORIDE LEVEL 97 MEQ/L (98-107); GLOMERULAR FILTRATION RATE > 60.0 (>56); GLUCOSE, FASTING 92 MG/DL (70-100); POTASSIUM SERUM 4.8 MEQ/L (3.5-5.1); SODIUM LEVEL 132 MEQ/L (136-145)
[2021-08-09] MEDS: OLANZapine 5 MG TAB PO PRN (11:12)
[2021-08-09] MEDS: NICOTINE POLACRILEX 2 MG GUM PO PRN ×2 (14:06→18:15)
[2021-08-09 18:56] VITALS: BP 148/76
[2021-08-09] MEDS: lamoTRIgine 25MG TAB PO SCH (19:59)
[2021-08-09] MEDS: traZODone 50 MG TAB PO PRN (19:59)
[2021-08-09] MEDS: DIVALPROEX 250MG *ER* TAB PO SCH (20:01)
[2021-08-09] MEDS: DIVALPROEX 500MG *ER* TAB PO SCH (20:01)
[2021-08-10 06:45] VITALS: BP 142/78
[2021-08-10] MEDS: NICOTINE POLACRILEX 2 MG GUM PO PRN ×4 (07:19→22:07)
[2021-08-10] MEDS: amLODIPine 5 MG TAB PO SCH (08:12)
[2021-08-10] MEDS: SERTRALINE 100 MG TAB PO SCH (08:12)
[2021-08-10] MEDS: lisinopriL 40MG TAB PO SCH (08:12)
[2021-08-10] MEDS: BENZTROPINE 0.5 MG TAB PO SCH ×2 (08:12→22:05)
[2021-08-10] MEDS: MULTIVITAMINS/MINERALS THERAP 1 TAB PO SCH (08:12)
[2021-08-10] MEDS: MELOXICAM (MOBIC) 7.5 MG TAB PO SCH (08:12)
[2021-08-10] MEDS: risperiDONE 1 MG TAB PO SCH ×2 (08:12→22:06)
[2021-08-10] MEDS: busPIRone 10 MG TAB PO SCH ×2 (08:12→22:05)
[2021-08-10] MEDS: lamoTRIgine 25MG TAB PO SCH (08:12)
[2021-08-10] MEDS: OLANZapine 5 MG TAB PO PRN (11:32)
[2021-08-10 18:59] VITALS: BP 127/62
[2021-08-10] MEDS: DIVALPROEX 500MG *ER* TAB PO SCH (22:05)
[2021-08-10] MEDS: DIVALPROEX 250MG *ER* TAB PO SCH (22:05)
[2021-08-10] MEDS: traZODone 50 MG TAB PO PRN (22:07)
[2021-08-11 06:42] VITALS: BP 123/60
[2021-08-11] MEDS: MULTIVITAMINS/MINERALS THERAP 1 TAB PO SCH (08:05)
[2021-08-11] MEDS: lisinopriL 40MG TAB PO SCH (08:05)
[2021-08-11] MEDS: MELOXICAM (MOBIC) 7.5 MG TAB PO SCH (08:06)
[2021-08-11] MEDS: SERTRALINE 100 MG TAB PO SCH (08:06)
[2021-08-11] MEDS: risperiDONE 1 MG TAB PO SCH (08:06)
[2021-08-11] MEDS: lamoTRIgine 25MG TAB PO SCH (08:06)
[2021-08-11] MEDS: BENZTROPINE 0.5 MG TAB PO SCH ×2 (08:06→20:03)
[2021-08-11] MEDS: amLODIPine 5 MG TAB PO SCH (08:08)
[2021-08-11] MEDS: busPIRone 10 MG TAB PO SCH ×2 (08:08→20:04)
[2021-08-11] MEDS: NICOTINE POLACRILEX 2 MG GUM PO PRN ×4 (08:09→20:04)
[2021-08-11 16:31] VITALS: BP 133/78
[2021-08-11] MEDS: traZODone 50 MG TAB PO PRN (20:02)
[2021-08-11] MEDS: DIVALPROEX 250MG *ER* TAB PO SCH (20:03)
[2021-08-11] MEDS: DIVALPROEX 500MG *ER* TAB PO SCH (20:03)
[2021-08-11] MEDS: risperiDONE 2 MG TAB PO SCH (20:04)
[2021-08-12 06:48] VITALS: BP 132/58
[2021-08-12] MEDS: MULTIVITAMINS/MINERALS THERAP 1 TAB PO SCH (08:02)
[2021-08-12] MEDS: SERTRALINE 100 MG TAB PO SCH (08:02)
[2021-08-12] MEDS: busPIRone 10 MG TAB PO SCH ×2 (08:02→21:00)
[2021-08-12] MEDS: lisinopriL 40MG TAB PO SCH (08:02)
[2021-08-12] MEDS: BENZTROPINE 0.5 MG TAB PO SCH ×2 (08:05→21:00)
[2021-08-12] MEDS: risperiDONE 1 MG TAB PO SCH (08:05)
[2021-08-12] MEDS: NICOTINE POLACRILEX 2 MG GUM PO PRN ×3 (08:05→16:18)
[2021-08-12] MEDS: MELOXICAM (MOBIC) 7.5 MG TAB PO SCH (08:05)
[2021-08-12] MEDS: amLODIPine 5 MG TAB PO SCH (08:05)
[2021-08-12] MEDS: lamoTRIgine 25MG TAB PO SCH (08:05)
[2021-08-12] MEDS: OLANZapine 5 MG TAB PO PRN (14:17)
[2021-08-12 16:42] VITALS: BP 138/68
[2021-08-12] MEDS: risperiDONE 2 MG TAB PO SCH ×2 (21:00→22:45)
[2021-08-12] MEDS: DIVALPROEX 250MG *ER* TAB PO SCH ×2 (21:00→22:44)
[2021-08-12] MEDS: DIVALPROEX 500MG *ER* TAB PO SCH ×2 (21:00→22:44)
[2021-08-12] MEDS: traZODone 50 MG TAB PO PRN (22:45)
[2021-08-13 06:33] VITALS: BP 152/82
[2021-08-13] MEDS: BENZTROPINE 0.5 MG TAB PO SCH ×2 (08:10→20:27)
[2021-08-13] MEDS: lisinopriL 40MG TAB PO SCH (08:10)
[2021-08-13] MEDS: MULTIVITAMINS/MINERALS THERAP 1 TAB PO SCH (08:11)
[2021-08-13] MEDS: amLODIPine 5 MG TAB PO SCH (08:11)
[2021-08-13] MEDS: busPIRone 10 MG TAB PO SCH ×2 (08:11→20:26)
[2021-08-13] MEDS: lamoTRIgine 25MG TAB PO SCH (08:12)
[2021-08-13] MEDS: SERTRALINE 100 MG TAB PO SCH (08:12)
[2021-08-13] MEDS: MELOXICAM (MOBIC) 7.5 MG TAB PO SCH (08:12)
[2021-08-13] MEDS: risperiDONE 1 MG TAB PO SCH (08:12)
[2021-08-13] MEDS: NICOTINE POLACRILEX 2 MG GUM PO PRN ×4 (08:12→20:26)
[2021-08-13 17:20] VITALS: BP 100/51
[2021-08-13] MEDS: traZODone 50 MG TAB PO PRN (20:26)
[2021-08-13] MEDS: DIVALPROEX 500MG *ER* TAB PO SCH (20:26)
[2021-08-13] MEDS: DIVALPROEX 250MG *ER* TAB PO SCH (20:27)
[2021-08-13] MEDS: risperiDONE 2 MG TAB PO SCH (20:27)
[2021-08-14 06:56] VITALS: BP 127/72
[2021-08-14] MEDS: busPIRone 10 MG TAB PO SCH ×3 (08:29→20:29)
[2021-08-14] MEDS: risperiDONE 1 MG TAB PO SCH (08:29)
[2021-08-14] MEDS: BENZTROPINE 0.5 MG TAB PO SCH ×2 (08:29→20:29)
[2021-08-14] MEDS: amLODIPine 5 MG TAB PO SCH (08:29)
[2021-08-14] MEDS: lamoTRIgine 25MG TAB PO SCH (08:29)
[2021-08-14] MEDS: NICOTINE POLACRILEX 2 MG GUM PO PRN ×2 (08:29→15:50)
[2021-08-14] MEDS: lisinopriL 40MG TAB PO SCH (08:29)
[2021-08-14] MEDS: MELOXICAM (MOBIC) 7.5 MG TAB PO SCH (08:29)
[2021-08-14] MEDS: MULTIVITAMINS/MINERALS THERAP 1 TAB PO SCH (08:29)
[2021-08-14] MEDS: OLANZapine ORAL DISINTEGRATING TAB 5MG PO PRN (08:31)
[2021-08-14] MEDS ORDERED: SERTRALINE HCL 50 MG TAB PO SCH (09:00)
[2021-08-14 19:06] VITALS: BP 127/67
[2021-08-14] MEDS: risperiDONE 2 MG TAB PO SCH (20:29)
[2021-08-14] MEDS: traZODone 50 MG TAB PO PRN (20:29)
[2021-08-14] MEDS: DIVALPROEX 250MG *ER* TAB PO SCH (20:29)
[2021-08-14] MEDS: DIVALPROEX 500MG *ER* TAB PO SCH (20:30)
[2021-08-15 07:05] VITALS: BP 121/71
[2021-08-15] MEDS: busPIRone 10 MG TAB PO SCH ×3 (08:02→21:01)
[2021-08-15] MEDS: BENZTROPINE 0.5 MG TAB PO SCH ×2 (08:02→21:01)
[2021-08-15] MEDS: MELOXICAM (MOBIC) 7.5 MG TAB PO SCH (08:02)
[2021-08-15] MEDS: lisinopriL 40MG TAB PO SCH (08:03)
[2021-08-15] MEDS: risperiDONE 1 MG TAB PO SCH (08:04)
[2021-08-15] MEDS: SERTRALINE 100 MG TAB PO SCH (08:04)
[2021-08-15] MEDS: amLODIPine 5 MG TAB PO SCH (08:04)
[2021-08-15] MEDS: MULTIVITAMINS/MINERALS THERAP 1 TAB PO SCH (08:04)
[2021-08-15] MEDS: NICOTINE POLACRILEX 2 MG GUM PO PRN ×4 (08:08→21:01)
[2021-08-15] MEDS ORDERED: risperiDONE LONG-ACTING 37.5 MG/2 ML INJ (J2794 PER 0.5MG) IM SCH (09:00)
[2021-08-15] MEDS: lamoTRIgine 25MG TAB PO SCH (09:00)
[2021-08-15] MEDS: OLANZapine ORAL DISINTEGRATING TAB 5MG PO PRN (10:51)
[2021-08-15 16:39] VITALS: BP 142/69
[2021-08-15] MEDS: traZODone 50 MG TAB PO PRN (21:01)
[2021-08-15] MEDS: DIVALPROEX 250MG *ER* TAB PO SCH (21:01)
[2021-08-15] MEDS: DIVALPROEX 500MG *ER* TAB PO SCH (21:01)
[2021-08-15] MEDS: risperiDONE 2 MG TAB PO SCH (21:01)
[2021-08-16 06:36] VITALS: BP 150/84
[2021-08-16] MEDS: NICOTINE POLACRILEX 2 MG GUM PO PRN ×3 (07:59→16:45)
[2021-08-16] MEDS: MULTIVITAMINS/MINERALS THERAP 1 TAB PO SCH (07:59)
[2021-08-16] MEDS: SERTRALINE 100 MG TAB PO SCH (07:59)
[2021-08-16] MEDS: BENZTROPINE 0.5 MG TAB PO SCH ×2 (08:00→21:27)
[2021-08-16] MEDS: risperiDONE 1 MG TAB PO SCH (08:00)
[2021-08-16] MEDS: MELOXICAM (MOBIC) 7.5 MG TAB PO SCH (08:00)
[2021-08-16] MEDS: lamoTRIgine 25MG TAB PO SCH (08:00)
[2021-08-16] MEDS: lisinopriL 40MG TAB PO SCH (08:00)
[2021-08-16] MEDS: amLODIPine 5 MG TAB PO SCH (08:00)
[2021-08-16] MEDS: busPIRone 10 MG TAB PO SCH ×3 (08:00→21:28)
[2021-08-16 16:24] VITALS: BP 113/60
[2021-08-16] MEDS: traZODone 50 MG TAB PO PRN (21:27)
[2021-08-16] MEDS: DIVALPROEX 500MG *ER* TAB PO SCH (21:28)
[2021-08-16] MEDS: DIVALPROEX 250MG *ER* TAB PO SCH (21:28)
[2021-08-16] MEDS: risperiDONE 2 MG TAB PO SCH (21:28)
[2021-08-17 06:43] VITALS: BP 111/55
[2021-08-17] MEDS: BENZTROPINE 0.5 MG TAB PO SCH ×2 (08:04→21:04)
[2021-08-17] MEDS: MELOXICAM (MOBIC) 7.5 MG TAB PO SCH (08:04)
[2021-08-17] MEDS: lisinopriL 40MG TAB PO SCH (08:04)
[2021-08-17] MEDS: lamoTRIgine 25MG TAB PO SCH (08:04)
[2021-08-17] MEDS: amLODIPine 5 MG TAB PO SCH (08:05)
[2021-08-17] MEDS: busPIRone 10 MG TAB PO SCH ×3 (08:05→21:04)
[2021-08-17] MEDS: MULTIVITAMINS/MINERALS THERAP 1 TAB PO SCH (08:05)
[2021-08-17] MEDS: SERTRALINE 100 MG TAB PO SCH (08:05)
[2021-08-17] MEDS: risperiDONE 1 MG TAB PO SCH (08:05)
[2021-08-17] MEDS: NICOTINE POLACRILEX 2 MG GUM PO PRN ×4 (08:05→21:03)
[2021-08-17 18:16] VITALS: BP 118/62
[2021-08-17] MEDS: DIVALPROEX 250MG *ER* TAB PO SCH (21:03)
[2021-08-17] MEDS: DIVALPROEX 500MG *ER* TAB PO SCH (21:03)
[2021-08-17] MEDS: risperiDONE 2 MG TAB PO SCH (21:04)
[2021-08-17] MEDS: traZODone 50 MG TAB PO PRN (21:04)
[2021-08-18 07:02] VITALS: BP 123/68
[2021-08-18] MEDS: NICOTINE POLACRILEX 2 MG GUM PO PRN ×4 (07:09→19:26)
[2021-08-18] MEDS: busPIRone 10 MG TAB PO SCH ×3 (08:13→20:50)
[2021-08-18] MEDS: SERTRALINE 100 MG TAB PO SCH (08:13)
[2021-08-18] MEDS: lamoTRIgine 25MG TAB PO SCH (08:13)
[2021-08-18] MEDS: risperiDONE 1 MG TAB PO SCH (08:13)
[2021-08-18] MEDS: MELOXICAM (MOBIC) 7.5 MG TAB PO SCH (08:13)
[2021-08-18] MEDS: MULTIVITAMINS/MINERALS THERAP 1 TAB PO SCH (08:13)
[2021-08-18] MEDS: BENZTROPINE 0.5 MG TAB PO SCH ×2 (08:13→20:50)
[2021-08-18] MEDS: lisinopriL 40MG TAB PO SCH (08:14)
[2021-08-18] MEDS: amLODIPine 5 MG TAB PO SCH (08:14)
[2021-08-18 17:54] VITALS: BP 142/73
[2021-08-18] MEDS: traZODone 50 MG TAB PO PRN (20:50)
[2021-08-18] MEDS: risperiDONE 2 MG TAB PO SCH (20:50)
[2021-08-19 07:08] VITALS: BP 137/67
[2021-08-19] MEDS: BENZTROPINE 0.5 MG TAB PO SCH ×2 (08:08→21:55)
[2021-08-19] MEDS: busPIRone 10 MG TAB PO SCH ×3 (08:08→21:55)
[2021-08-19] MEDS: MELOXICAM (MOBIC) 7.5 MG TAB PO SCH (08:09)
[2021-08-19] MEDS: SERTRALINE 100 MG TAB PO SCH (08:10)
[2021-08-19] MEDS: lisinopriL 40MG TAB PO SCH (08:10)
[2021-08-19] MEDS: MULTIVITAMINS/MINERALS THERAP 1 TAB PO SCH (08:10)
[2021-08-19] MEDS: amLODIPine 5 MG TAB PO SCH (08:10)
[2021-08-19] MEDS: NICOTINE POLACRILEX 2 MG GUM PO PRN ×3 (08:11→16:37)
[2021-08-19] MEDS: OLANZapine ORAL DISINTEGRATING TAB 5MG PO PRN (14:34)
[2021-08-19 18:00] VITALS: BP 138/82
[2021-08-19] MEDS: risperiDONE 2 MG TAB PO SCH (21:55)
[2021-08-19] MEDS: traZODone 50 MG TAB PO PRN (21:55)
[2021-08-20 06:00] VITALS: BP 154/94
[2021-08-20] MEDS: SERTRALINE HCL 50 MG TAB PO SCH (08:01)
[2021-08-20] MEDS: BENZTROPINE 0.5 MG TAB PO SCH ×2 (08:01→21:39)
[2021-08-20] MEDS: lisinopriL 40MG TAB PO SCH (08:01)
[2021-08-20] MEDS: busPIRone 10 MG TAB PO SCH ×3 (08:01→21:39)
[2021-08-20] MEDS: MELOXICAM (MOBIC) 7.5 MG TAB PO SCH (08:01)
[2021-08-20] MEDS: MULTIVITAMINS/MINERALS THERAP 1 TAB PO SCH (08:01)
[2021-08-20] MEDS: amLODIPine 5 MG TAB PO SCH (08:03)
[2021-08-20] MEDS: NICOTINE POLACRILEX 2 MG GUM PO PRN ×3 (08:05→16:44)
[2021-08-20] MEDS: OLANZapine ORAL DISINTEGRATING TAB 5MG PO PRN (12:51)
[2021-08-20 18:15] VITALS: BP 157/92
[2021-08-20] MEDS: risperiDONE 2 MG TAB PO SCH (21:39)
[2021-08-20] MEDS: traZODone 50 MG TAB PO PRN (21:39)
[2021-08-21] MEDS: MULTIVITAMINS/MINERALS THERAP 1 TAB PO SCH (08:10)
[2021-08-21] MEDS: MELOXICAM (MOBIC) 7.5 MG TAB PO SCH (08:10)
[2021-08-21] MEDS: SERTRALINE HCL 50 MG TAB PO SCH (08:10)
[2021-08-21] MEDS: lisinopriL 40MG TAB PO SCH (08:11)
[2021-08-21] MEDS: BENZTROPINE 0.5 MG TAB PO SCH ×2 (08:11→21:01)
[2021-08-21] MEDS: busPIRone 10 MG TAB PO SCH ×3 (08:11→21:00)
[2021-08-21] MEDS: amLODIPine 5 MG TAB PO SCH (08:11)
[2021-08-21] MEDS: OLANZapine ORAL DISINTEGRATING TAB 5MG PO PRN (11:17)
[2021-08-21] MEDS: NICOTINE POLACRILEX 2 MG GUM PO PRN ×3 (12:07→21:01)
[2021-08-21 19:02] VITALS: BP 148/88
[2021-08-21] MEDS: risperiDONE 2 MG TAB PO SCH (21:00)
[2021-08-21] MEDS: traZODone 50 MG TAB PO PRN (21:00)
[2021-08-22] MEDS: NICOTINE POLACRILEX 2 MG GUM PO PRN ×3 (03:24→12:09)
[2021-08-22 06:23] VITALS: BP 141/93
[2021-08-22] MEDS: lisinopriL 40MG TAB PO SCH (08:02)
[2021-08-22] MEDS: busPIRone 10 MG TAB PO SCH (08:02)
[2021-08-22] MEDS: BENZTROPINE 0.5 MG TAB PO SCH (08:02)
[2021-08-22] MEDS: SERTRALINE HCL 50 MG TAB PO SCH (08:02)
[2021-08-22 08:03] VITALS: BP 130/80
[2021-08-22] MEDS: amLODIPine 5 MG TAB PO SCH (08:03)
[2021-08-22] MEDS: MULTIVITAMINS/MINERALS THERAP 1 TAB PO SCH (08:03)
[2021-08-22] MEDS: MELOXICAM (MOBIC) 7.5 MG TAB PO SCH (08:03)
[2021-08-22] MEDS ORDERED: BUSP10TA PO (10:59)
[2021-08-22] MEDS ORDERED: RISP-9 PO (10:59)
[2021-08-22] MEDS ORDERED: SERT50TA29 PO (10:59)
[2021-08-22] MEDS ORDERED: NICO2GUM PO (10:59)
[2021-08-22] MEDS ORDERED: TRAZ-252 PO (10:59)
[2021-08-22] MEDS ORDERED: DIVA500T9 PO (10:59)
[2021-08-22] MEDS ORDERED: OLAN5ZYD PO (10:59)
[2021-08-22] MEDS ORDERED: RISP37INJ IM (10:59)
== END 2021-08-22 14:55 | disposition home or self-care (01) | DRG 885 ==
LOC: M ED 10:55 → M ED INP 19:46 → M PSY 23:13
PROVIDERS: ADMIT Student in an Organized Health Care Education/Training Program; ATTEND Student in an Organized Health Care Education/Training Program
DX: F25.1 Schizoaffective disorder, depressive type (principal); R45.851 Suicidal ideations; F17.290 Nicotine dependence, other tobacco product, uncomplicated; Z91.14 Patient's other noncompliance with medication regimen; Z91.51 Personal history of suicidal behavior; I10 Essential (primary) hypertension; N52.9 Male erectile dysfunction, unspecified; M54.30 Sciatica, unspecified side; Z79.899 Other long term (current) drug therapy; Z88.8 Allergy status to other drugs, medicaments and biological substances; Z20.822 Contact with and (suspected) exposure to COVID-19; Z91.19 Patient's noncompliance with other medical treatment and regimen; Z63.0 Problems in relationship with spouse or partner